=== PATIENT | female | born 1980 | race Caucasian/White ===

== ENCOUNTER 2023-06-10 12:25 | Outpatient (OUT) | payer SELFPAY ==
--- NOTE | 2023-06-10 12:34 | XR_ITS ---
The [address] [address] Patient Name: ROSELIA LO MRN: [id number] date: 1980 Sex: F Assigned Patient Location: [facility] Current Patient Location: [facility] Accession/Order Number: [id number] Exam Date: 06/10/2023 12:45 Report Date: 06/10/2023 13:11 At the request of: TREY HAMILTON Procedure: XR ankle RT min 3V PROCEDURE: XR foot RT min 3V, XR ankle RT min 3V HISTORY: Foot sprain ; acute right foot and ankle pain after falling COMPARISON: None. FINDINGS: BONES:No fracture, acute abnormality, or significant arthropathy. SOFT TISSUES:No visible soft tissue swelling. EFFUSION:None visible. OTHER: Negative. XR/XR ankle RT min 3V IMPRESSION: 1. No acute bone abnormality. Electronically authenticated by: NOEL LEIVA Date: 06/10/2023 13:11
--- NOTE | 2023-06-10 12:34 | XR_ITS ---
The [place] [id number] Patient Name: ROSELIA LO MRN: [id number] date: 1980 Sex: F Assigned Patient Location: [facility] Current Patient Location: [facility] Accession/Order Number: [id number] Exam Date: 06/10/2023 12:45 Report Date: 06/10/2023 13:12 At the request of: TREY HAMILTON Procedure: XR hand RT min 3V PROCEDURE: XR hand RT min 3V HISTORY: Hand contusion ; pain after falling COMPARISON: None. FINDINGS: BONES:No fracture, acute abnormality, or significant arthropathy. SOFT TISSUES:No visible soft tissue swelling. EFFUSION:None visible. OTHER: Negative. XR/XR hand RT min 3V IMPRESSION: 1. No acute bone abnormality. Electronically authenticated by: NOEL LEIVA Date: 06/10/2023 13:12
--- NOTE | 2023-06-10 12:34 | XR_ITS ---
The [address] [address] Patient Name: ROSELIA LO MRN: [id number] date: 1980 Sex: F Assigned Patient Location: [facility] Current Patient Location: [facility] Accession/Order Number: [id number] Exam Date: 06/10/2023 12:45 Report Date: 06/10/2023 13:11 At the request of: TREY HAMILTON Procedure: XR foot RT min 3V PROCEDURE: XR foot RT min 3V, XR ankle RT min 3V HISTORY: Foot sprain ; acute right foot and ankle pain after falling COMPARISON: None. FINDINGS: BONES:No fracture, acute abnormality, or significant arthropathy. SOFT TISSUES:No visible soft tissue swelling. EFFUSION:None visible. OTHER: Negative. XR/XR foot RT min 3V IMPRESSION: 1. No acute bone abnormality. Electronically authenticated by: NOEL LEIVA Date: 06/10/2023 13:11
== END 2023-06-10 12:26 | disposition home or self-care (01) ==
PROVIDERS: PCP Nurse Practitioner; Visit Provider Nurse Practitioner Family
DX: S93.401A Sprain of unspecified ligament of right ankle, initial encounter (principal); S93.601A Unspecified sprain of right foot, initial encounter; S60.221A Contusion of right hand, initial encounter
CPT/HCPCS: 73130; 73610; 73630

== ENCOUNTER 2023-06-15 18:59 | Emergency (ER) | payer OTHER, SELFPAY ==
[2023-06-15 19:03] VITALS: BP 149/109; PULSE 107; RESP 16; TEMP 36.6; O2SAT 96; BMI 26.6
--- NOTE | 2023-06-15 19:11 | ED.WOUNDLAC1 ---
HPI - Wound/Laceration General Chief Complaint: Wound/Laceration Stated Complaint: LT HAND LACERATION Time Seen by Provider: 06/15/23 19:03 History of Present Illness HPI narrative: The patient presented to us with a hand laceration that she obtained while using serrated knife , pt had her last tetanus booster around days ago after similar injury Related Data Allergies Allergy/AdvReac Type Severity Reaction Status Date / Time diphenhydramine Allergy Mild Hives Verified 06/15/23 19:08 [From Benadryl] codeine Allergy Unknown Verified 06/15/23 19:08 Review of Systems ROS Status of ROS 10 or more systems reviewed and unremarkable except as noted in history and below PFSH PFS Social History Smoking status: Current every day smoker Exam Narrative Exam Narrative: Nurses notes and vital signs reviewed and patient is not hypoxic. General: Well-appearing and in no apparent distress. Skin: Warm, dry, no pallor noted. No rash. Head: Normocephalic, atraumatic. Neck: Supple, non-tender. Eye: Pupils are equal, round and EOMI. No scleral icterus. Ears, Nose, Mouth, and Throat: TM are clear, no nasal mucosal hypertrophy. Oral mucosa is moist, no posterior oropharynx erythema, uvula is mid-line Cardiovascular: Regular Rate and Rhythm without murmur, gallop or rub. Respiratory: No accessory muscle use or respiratory distress. Lungs are clear to auscultation, no wheezing, rales or rhonchi Chest Wall: no tenderness Back: No midline thoracic or lumbar vertebral tenderness. No CVA tenderness Musculoskeletal: normal ROM, no calf or popliteal tenderness, no lower extremity edema/swelling,small 1 mm wound , not deep , may be puncture full range of movement preserved GI: Abdomen is soft, non-distended. Normal bowel sounds. No masses appreciated. No tenderness to palpation. No rebound, guarding, or rigidity noted. Neurological: A&O x4. No cranial nerve dysfunction observed. No truncal ataxia. Moves all extremities. Sensation intact. Psychiatric: Cooperative and interactive. Normal mood and affect. Constitutional Vital Signs, click to edit/add: Last Vital Signs Temp 97.9 F 06/15/23 19:03 Pulse 107 H 06/15/23 19:03 Resp 16 06/15/23 19:03 BP 149/109 H 06/15/23 19:03 Pulse Ox 96 06/15/23 19:03 O2 Del Method Room Air 06/15/23 19:03 Course Vital Signs Vital signs: Vital Signs Temperature 97.9 F 06/15/23 19:03 Pulse Rate 107 H 06/15/23 19:03 Respiratory Rate 16 06/15/23 19:03 Blood Pressure 149/109 H 06/15/23 19:03 Pulse Oximetry 96 06/15/23 19:03 Oxygen Delivery Method Room Air 06/15/23 19:03 Temperature 97.9 F 06/15/23 19:03 Pulse Rate 107 H 06/15/23 19:03 Respiratory Rate 16 06/15/23 19:03 Blood Pressure 149/109 H 06/15/23 19:03 Pulse Oximetry 96 06/15/23 19:03 Oxygen Delivery Method Room Air 06/15/23 19:03 MDM - Wound/Laceration MDM Narrative Medical decision making narrative: wound cleaned and dried small wound and not deep , no underlying structures injured and no foreign body Wound care instruction The patient is to follow up with primary care physician in next 2-3 days or to return to the emergency department should any of the signs or symptoms worsen or new symptoms develop. The patient agrees with the following Diagnosis and Treatment plan and the patient will be discharged home. Dermabond applied Discharge Plan Discharge Chief Complaint: Wound/Laceration Clinical Impression: Laceration of hand Patient Disposition: Home, Self-Care Time of Disposition Decision: 19:16 Condition: Good Instructions: Acute Wounds (ED) Stand Alone Forms: Portal Instructions Referrals: Ainsley Sellers [Primary Care Provider] - 1 week
== END 2023-06-15 19:29 | disposition home or self-care (01) ==
PROVIDERS: Emergency Provider Emergency Medicine; PCP Nurse Practitioner
DX: S61.412A Laceration without foreign body of left hand, initial encounter (principal); W26.0XXA Contact with knife, initial encounter; F17.210 Nicotine dependence, cigarettes, uncomplicated
CPT/HCPCS: 99281

== ENCOUNTER 2023-10-07 11:06 | Outpatient (OUT) | payer OTHER, SELFPAY ==
[2023-10-07 11:46] LABS: Creatinine Urine Random 110.39 mg/dL (20.00-300.00); Microalbum Creatinine Ratio Ur 11.7 mg/g (0.0-29.9); Microalbumin Urine Random <1.3 mg/dL (<=30.0)
[2023-10-07 11:48] LABS: Estimated Average Glucose 108 mg/dL; Glycohemoglobin A1C 5.4 % (4.5-6.2)
[2023-10-07 11:56] LABS: Alanine Aminotransferase 18 U/L (14-59); Albumin Level 3.4 g/dL (3.4-5.0); Alkaline Phosphatase 83 U/L (46-116); Anion Gap 12.4; Aspartate Amino Transferase 9 U/L (15-37); BUN Creatinine Ratio 13.1; Bilirubin Total 0.3 mg/dL (0.2-1.0); Calcium 8.9 mg/dL (8.5-10.1); Carbon Dioxide 25.8 mmol/L (21.0-32.0); Chloride 104 mmol/L (98-107); Estimated GFR (African America >60 (>=60); Estimated GFR (Non-African Ame 56 (>=60); Globulin 3.4 g/dL; Glucose 97 mg/dL (74-106); Potassium 4.2 mmol/L (3.5-5.1); Sodium 138 mmol/L (136-145); Total Protein 6.8 g/dL (6.4-8.2)
== END 2023-10-07 11:07 | disposition home or self-care (01) ==
PROVIDERS: PCP Internal Medicine; Visit Provider Internal Medicine
DX: N18.2 Chronic kidney disease, stage 2 (mild) (principal); G62.9 Polyneuropathy, unspecified
CPT/HCPCS: 36415; 80053; 82043; 82570; 82607; 82746; 83036

== ENCOUNTER 2023-12-16 14:50 | Outpatient (RCR) | payer OTHER, SELFPAY | END 2023-12-17 11:22 | disposition home or self-care (01) | LOC: PT 14:50 | PROVIDERS: PCP Internal Medicine; Visit Provider Psychiatry & Neurology Neurology | DX: R20.2 Paresthesia of skin (principal) | CPT/HCPCS: 97010; 97014; 97110; 97140; 97161 ==

== ENCOUNTER 2024-01-12 17:21 | Outpatient (OUT) | payer OTHER, SELFPAY ==
--- NOTE | 2024-01-12 | XR_ITS ---
The [address] [address] Patient Name: ROSELIA LO MRN: [id number] date: 1980 Sex: F Assigned Patient Location: [facility] Current Patient Location: [facility] Accession/Order Number: [id number] Exam Date: 01/12/2024 17:32 Report Date: 01/14/2024 09:14 At the request of: LISA KINGHT Procedure: XR hip RT min 2V PROCEDURE: XR hip RT min 2V HISTORY: acute right hip pain M25.551 ; pain radiating down right leg COMPARISON: None. FINDINGS: BONES:No fracture, acute abnormality, or significant arthropathy. SOFT TISSUES:No visible soft tissue swelling. EFFUSION:None visible. OTHER: Negative. XR/XR hip RT min 2V IMPRESSION: 1. No acute bone abnormality or significant degenerative changes of the right hip. Electronically authenticated by: NOEL LEIVA Date: 01/14/2024 09:14
== END 2024-01-12 17:22 | disposition home or self-care (01) ==
LOC: RAD 17:22
PROVIDERS: PCP Internal Medicine; Visit Provider Nurse Practitioner
DX: M25.551 Pain in right hip (principal)
CPT/HCPCS: 73502

== ENCOUNTER 2024-01-27 06:47 | Outpatient (OUT) | payer OTHER, SELFPAY ==
--- OUTSIDE RECORDS SUMMARY | 2024-01-27 06:49 | XMS_ITS | CCD ---
Author Organization [facility] Care Team Providers Care Delivery Rep Name Role Phone UNKNOWN, PHYSICIAN Referring Unavailable UNKNOWN, PHYSICIAN Primary Care Unavailable EBRAHEIM, OLE Attending Unavailable EBRAHEIM, OLE Admitting Unavailable AICHHOLZ, DIRECTOR OF SCIENTIFIC RESEARCH AINSLEY Admitting Unavailable SVETA, DR TESS Eaton Consulting Unavailable AICHHOLZ, DIRECTOR OF SCIENTIFIC RESEARCH AINSLEY Attending Unavailable AICHHOLZ, DIRECTOR OF SCIENTIFIC RESEARCH AINSLEY Primary Care Unavailable AICHHOLZ, DIRECTOR OF SCIENTIFIC RESEARCH AINSLEY Consulting Unavailable AICHHOLZ, DIRECTOR OF SCIENTIFIC RESEARCH AINSLEY Primary Care Unavailable AICHHOLZ, DIRECTOR OF SCIENTIFIC RESEARCH AINSLEY Admitting Unavailable AICHHOLZ, DIRECTOR OF SCIENTIFIC RESEARCH AINSLEY Attending Unavailable AICHHOLZ, DIRECTOR OF SCIENTIFIC RESEARCH AINSLEY Primary Care Unavailable HELIO, DR RANDOLPH Mehta Admitting Unavailable HELIO, DR RANDOLPH Mehta Attending Unavailable HELIO, DR RANDOLPH Mehta Consulting Unavailable HELIO, DR RANDOLPH Mehta Admitting Unavailable YOLANDA, DR NEVAREZ Primary Care Unavailable HELIO, DR RANDOLPH Mehta Attending Unavailable HELIO, DR RANDOLPH Mehta Consulting Unavailable AICHHOLZ, DIRECTOR OF SCIENTIFIC RESEARCH AINSLEY Primary Care Unavailable AICHHOLZ, DIRECTOR OF SCIENTIFIC RESEARCH AINSLEY Admitting Unavailable AICHHOLZ, DIRECTOR OF SCIENTIFIC RESEARCH AINSLEY Attending Unavailable AICHHOLZ, DIRECTOR OF SCIENTIFIC RESEARCH AINSLEY Consulting Unavailable Aicha Shankar Unavailable AICKIERA, AINSLEY J Primary Care Unavailable BRANDON, DIDI E. Attending Unavailable DIID TAYLOR. Attending Unavailable BRANDON, DIDI E. Referring Unavailable AICHHOLZ, AINSLEY J Primary Care Unavailable BRANDON, DIDI E. Attending Unavailable RINTO, DIDI E. Referring Unavailable AICHHOLZ, AINSLEY J Primary Care Unavailable Aichholz CHRISTIAN SCIENCE HEALER-FADI Ainsley J Primary Care Provider RYAN SELLERSA J Referring Unavailable AICHHOLZ, AINSLEY J Primary Care Unavailable AICHHOLZ, AINSLEY Attending Unavailable AICHHOLZ, AINSLEY Attending Unavailable FAWTRIXIE, SCHULZ Attending Unavailable SWETA PORTILLO Attending Unavailable SWETA PORTILLO Referring Unavailable Allergies Allergy Classification Reported Allergen(s) Allergy Type Date of Onset Reaction(s) Facility diphenhydrAMINE (1 source) diphenhydrAMINE; Translations: [BENADRYL] Drug Allergy 08-19-20 10 [facility] Repository (3 sources) Codeine; Translations: [CODEINE] Drug Allergy 05-30-20 13 [facility] Repository (1 source) diphenhydrAMINE Drug Allergy 05-30-20 13 [facility] Repository (4 sources) Codeine Drug Allergy 05-06-20 17 [employer] Other (2 sources) [facility] Other (4 sources) diphenhydrAMINE; Translations: [DIPHENHYDRAMINE HCL] Drug Allergy 05-06-20 17 [facility] Repository Medications Current Medications Medication Drug Class(es) Dates Sig (Normalized) Sig (Original) ALPRAZolam 0.25 mg oral tablet (4 sources) Benzodiazepine Start: 03-18-2023 take 1 tablet by mouth once daily as needed for anxiety ALPRAZolam (XANAX) 0.25 mg tablet TAKE 1 TABLET BY MOUTH EVERY DAY NEEDED FOR ANXIETY 0 03/18/2023 Active ALPRAZolam Activ e dexamethasone 4 mg oral tablet (1 source) Corticosteroid Start: 12-24-2022 take 1 tablet by mouth every twenty-four hours Dexamethasone 4 MG 1 tablet Orally Once a day for 5 days Dec, Active dextromethorphan hydrobromide 1.5 mg/ml / pyrilamine maleate 1.5 mg/ml oral solution (1 source) Uncompetitive P-zzgivf-W-asparta te Receptor Antagonist, Sigma-1 Agonist Start: 12-24-2022 [place] DM 7.5-7.5 MG/5ML 10 ml Orally every 6-8 hours as needed for 8 days Dec, Active FLUoxetine 20 mg oral capsule (2 sources) Serotonin Reuptake Inhibitor FLUoxetine (PROzac) 20 mg capsule Take 30 mg by mouth in the morning. 0 Active fluticasone propionate 0.05 mg/actuat metered dose nasal spray (1 source) Corticosteroid Start: 12-24-2022 take 1 spray(s) nasal route once daily Fluticasone Propionate 50 MCG/ACT 1 spray in each nostril Nasally Once a day for 21 days Dec, Active gabapentin 300 mg oral capsule (3 sources) Anti-epileptic Agent take 1 capsule by mouth in the morning, then take 1 capsule by mouth at bedtime, then take 1 capsule by mouth in the evening gabapentin (NEURONTIN) 300 mg capsule Take 1 capsule (300 mg total) by mouth in the morning and 1 capsule (300 mg total) before bedtime. 1 cap in the PM 2 cap in the PM . 0 Active multivit with calcium,iron,min (WOMEN'S DAILY MULTIVITAMIN ORAL) (2 sources) multivit with calcium,iron,min (WOMEN'S DAILY MULTIVITAMIN ORAL) Take by mouth. 0 Active ondansetron 4 mg oral tablet (3 sources) Serotonin-3 Receptor Antagonist Start: 06-01-2022 take 1 tablet by mouth every eight hours as needed Zofran ODT 4 MG 1 tablet on the tongue and allow to dissolve Orally every 8 hrs as needed for 4 days Dec, Active sertraline 50 mg oral tablet (1 source) Serotonin Reuptake Inhibitor Sertraline HCl 50 MG TAKE 1 AND 1/2 TABLETS BY MOUTH DAILY Oral for 90 Days Active traZODone hydrochloride 50 mg oral tablet (1 source) Serotonin Reuptake Inhibitor Start: 10-19-2023 End: 11-18-2023 take 1 tablet by mouth once daily traZODone (DESYREL) 50 mg tablet Take 1 tablet (50 mg total) by mouth nightly. 0 10/19/2023 11/18/2023 Active Completed/Discontinued Medications Medication Drug Class(es) Dates Sig (Normalized) Sig (Original) 1 ml medroxyPROGESTERone acetate 150 mg/ml injection (2 sources) Progestin Start: End: medroxyPROGESTERone (DEPO-PROVERA) injection 150 mg Start: 12-22-2023 End: 12-22-2023 medroxyPROGESTERone (DEPO-NM OVERA) injection 150 mg Problems Active Problems Problem Classification Problem Date Documented Date Episodic/Chronic Acute and chronic tonsillitis (4 sources) Hypertrophy of tonsils; Translations: [Hypertrophy of tonsils] Onset: 03-19-2021 03-19-2021 Chronic Allergic reactions (4 sources) Erythema ab igne [dermatitis ab igne]; Translations: [ERYTHEMA AB IGNE DERMATITIS AB IGNE] Onset: 03-18-2022 Episodic Contraceptive and procreative management (1 source) Contraception ; Translations: [Encounter for surveillance of injectable contraceptive] 12-22-2023 Episodic Nausea and vomiting (1 source) Nausea Episodic Other skin disorders (1 source) Rash and other nonspecific skin eruption; Translations: [RASH OTH NONSPECIFIC SKIN ERUPTION] Onset: 03-24-2022 Episodic Other upper respiratory infections (8 sources) Acute pharyngitis, unspecified; Translations: [Sore throat symptom] Onset: 10-17-2021 Resolved: 06-01-2022 Episodic Spondylosis; intervertebral disc disorders; other back problems (4 sources) Other intervertebral disc degeneration, lumbosacral region; Translations: [OTH IV DISC DEGEN LUMBOSACRAL RGN] Onset: 11-24-2021 Chronic Substance-related disorders (3 sources) Nicotine dependence, cigarettes, uncomplicated; Translations: [Smoker] Onset: 02-01-2022 03-24-2022 Chronic Syncope (2 sources) Syncope and collapse; Translations: [Syncope] Onset: 10-28-2023 Episodic Unclassified (1 source) LOW BACK PAIN, UNSPECIFIED; Translations: [LOW BACK PAIN, UNSPECIFIED] Onset: 02-01-2022 Unclassified (1 source) ILL Onset: 10-28-2023 Past or Other Problems Problem Classification Problem Date Documented Da te Episodic/Chronic Abdominal pain (3 sources) Unspecified abdominal pain; Translations: [UNSPECIFIED ABDOMINAL PAIN] Onset: 01-29-2022 Episodic Chronic obstructive pulmonary disease and bronchiectasis (1 source) Bronchitis, not specified as acute or chronic; Translations: [BRONCHITIS NOT SPEC ACUTE/CHRON] Onset: 10-20-2021 Episodic Mood disorders (2 sources) Mood disorders Onset: 04-26-2023 04-26-2023 Other aftercare (1 source) Other custodial (current) drug therapy; Translations: [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] Onset: 02-01-2022 Episodic Other connective tissue disease (4 sources) Pain in right leg; Translations: [PAIN IN RIGHT LEG] Onset: 11-18-2021 Episodic Other connective tissue disease (1 source) Pain in left leg; Translations: [PAIN IN LEFT LEG] Onset: 11-20-2021 Episodic Unclassified (1 source) Contact with and (suspected) exposure to covid-19 Z20.822 Unclassified (2 sources) Onset: 04-26-2023 04-26-2023 Viral infection (1 source) COVID-19 Onset: 06-01-2022 Resolved: 06-01-2022 Results Test Name Value Interpretation Reference Range Facility CBC AND AUTO DIFFon 10-28-20 ABSOLUTE BASOPHIL 0.1 X10E9/L Normal 0.0-0.2 [facility] Comment on above: Performed By: #### 1 9, , CBCA, CMP, 10852-8 #### [facility] ([id number]) [address] [place] [address] 77222 ABSOLUTE NEUTROPHIL 10.5 X10E9/L High 1.5-6.6 [facility] Comment on above: Performed By: #### 1 9, , CBCA, CMP, 49969-2 #### [facility] ([id number]) [address] [place] [address] 09051 Basophils/100 WBC (Bld) 0.4 % Normal [facility] Comment on above: Performed By: #### 1 399, , CBCA, CMP, 01885-5 #### [facility] ([id number]) [address] [place] [address] 58658 Eosinophils (Bld) [#/Vol] 0.3 10*3/uL Normal 0.0-0.4 [facility] Comment on above: Performed By: #### 1 9, , CBCA, CMP, 79491-1 #### [facility] ([id number]) [address] [place] [address] 35036 Eosinophils/100 WBC (Bld) 2.2 % Normal [facility] Comment on above: Performed By: #### 1 9, , CBCA, CMP, 00089-6 #### [facility] ([id number]) [address] [place] [address] 19359 Erythrocyte distribution width (RBC) [Ratio] 15.2 % High 11.5-15.0 [facility] Comment on above: Performed By: #### 1 9, , CBCA, CMP, 98309-3 #### [facility] ([id number]) [address] [place] [address] 66468 Hematocrit (Bld) [Volume fraction] 42.7 % Normal 35-47 [facility] Comment on above: Performed By: #### 1 9, , CBCA, CMP, 96664-7 #### [facility] ([id number]) [address] [place] [address] 40337 Hemoglobin (Bld) [Mass/Vol] 14.6 g/dL Normal 11.7-15.5 [facility] Comment on above: Performed By: #### 1 9, , CBCA, CMP, 07071-7 #### [facility] ([id number]) [address] [place] [address] 64542 Lymphocytes (Bld) [#/Vol] 1.7 10*3/uL Normal 1.0-3.5 [facility] Comment on above: Performed By: #### 1 9, , CBCA, CMP, 52946-3 #### [facility] ([id number]) [address] [place] [address] 40565 Lymphocytes/100 WBC (Bld) 12.8 % Normal [facility] Comment on above: Performed By: #### 1 9, , CBCA, CMP, 69051-0 #### [facility] ([id number]) [address] [place] [address] 35811 MCH (RBC) [Entitic mass] 33.8 pg Normal 27-34 [facility] Comment on above: Performed By: #### 1 9, , CBCA, CMP, 11361-9 #### [facility] ([id number]) [address] [place] [address] 78425 MCHC (RBC) [Mass/Vol] 34.3 g/dL Normal 32-36 [facility] Comment on above: Performed By: #### 1 9, , CBCA, CMP, 59614-0 #### [facility] ([id number]) [address] [place] [address] 75506 MCV (RBC) [Entitic vol] 99 fL Normal 80-100 [facility] Comment on above: Performed By: #### 1 839-07, , CBCA, CMP, 64697-2 #### [facility] ([id number]) [address] [place] [address] 49549 Monocytes (Bld) [#/Vol] 0.8 10*3/uL Normal 0-0.9 [facility] Comment on above: Performed By: #### 1 9, , CBCA, CMP, 11097-6 #### [facility] ([id number]) [address] [place] [address] 40213 Monocytes/100 WBC (Bld) 5.7 % Normal [facility] Comment on above: Performed By: #### 1 9, , CBCA, CMP, 07935-4 #### [facility] ([id number]) [address] [place] [address] 10725 Neutrophils/100 WBC (Bld) 78.9 % Normal [facility] Comment on above: Performed By: #### 1 0839-9, , CBCA, CMP, 18865-5 #### [facility] ([id number]) [address] [place] [address] 36735 Platelet mean volume (Bld) [Entitic vol] 8.6 fL Normal 7-12 [facility] Comment on above: Performed By: #### 1 39-9, , CBCA, CMP, 98028-8 #### [facility] ([id number]) [address] [place] [address] 82262 Platelets (Bld) [#/Vol] 247 10*3/uL Normal 150-450 [facility] Comment on above: Result Comment: PLAT ELETS REVIEWED Performed By: #### 1 838-9, , CBCA, CMP, 49243-3 #### [facility] ([id number]) [address] [place] [address] 72295 RBC COUNT 4.32 X10E12/L Normal 3.80-5.20 [facility] Comment on above: Performed By: #### 1 08399, , CBCA, CMP, 95222-6 #### [facility] ([id number]) [address] [place] [address] 15432 WBC (Bld) [#/Vol] 13.3 10*3/uL High 4.0-11.0 [facility] Comment on above: Performed By: #### 1 0839-9, , CBCA, CMP, 78389-3 #### [facility] ([id number]) [address] [place] [address] 76735 COMPREHENSIVE METABOLIC PANE Scott 10-28-2023 Albumin [Mass/Vol] 4.0 g/dL Normal 3.2-5.3 [facility] Comment on above: Performed By: #### 1 0839-9, , CBCA, CMP, 35483-0 #### [facility] ([id number]) [address] [place] [address] 02003 ALP [Catalytic activity/Vol] 76 U/L Normal 39-130 [facility] Comment on above: Performed By: #### 1 39-9, , CBCA, CMP, 28705-7 #### [facility] ([id number]) [address] [place] [address] 79146 ALT [Catalytic activity/Vol] 18 U/L Normal 0-31 [facility] Comment on above: Performed By: #### 1 39-9, , CBCA, CMP, 48372-8 #### [facility] ([id number]) [address] [place] [address] 79931 Anion gap [Moles/Vol] 3 mmol/L Low 5-15 [facility] Comment on above: Performed By: #### 1 39-9, , CBCA, CMP, 05832-7 #### [facility] ([id number]) [address] [place] [address] 40171 AST [Catalytic activity/Vol] 20 U/L Normal 0-41 [facility] Comment on above: Performed By: #### 1 39-9, , CBCA, CMP, 79843-2 #### [facility] ([id number]) [address] [place] [address] 80122 Bilirubin [Mass/Vol] 0.8 mg/dL Normal 0.3-1.2 [facility] Comment on above: Performed By: #### 1 39-9, , CBCA, CMP, 47734-0 #### [facility] ([id number]) [address] [place] [address] 95894 Calcium [Mass/Vol] 8.6 mg/dL Normal 8.5-10.5 [facility] Comment on above: Performed By: #### 1 0839-9, , CBCA, CMP, 60672-4 #### [facility] ([id number]) [address] [place] [address] 84425 Chloride [Moles/Vol] 113 mmol/L High 98-109 [facility] Comment on above: Performed By: #### 1 39-9, , CBCA, CMP, 51032-9 #### [facility] ([id number]) [address] [place] [address] 75533 CO2 [Moles/Vol] 22 mmol/L Normal 22-32 [facility] Comment on above: Performed By: #### 1 0839-9, , CBCA, CMP, 97425-2 #### [facility] ([id number]) [address] [place] [address] 08261 Creatinine [Mass/Vol] 1.15 mg/dL High 0.40-1.00 [facility] Comment on above: Result Comment: METH OD TRACEABLE TO IDMS STANDARD Performed By: #### 1 0839-9, , CBCA, CMP, 56666-5 #### [facility] ([id number]) [address] [place] [address] 46723 GFR/1.73 sq M.predicted among non-blacks MDRD (S/P/Bld) [Vol rate/Area] 61 mL/min/{1.73_m2} Normal >59 [facility] Comment on above: Result Comment: Reported eGFR is based on the CKD-EPI 1 equation that does not use a race coefficient. Performed By: #### 1 0839-9, , CBCA, CMP, 56597-7 #### [facility] ([id number]) [address] [place] [address] 57196 Glucose [Mass/Vol] 84 mg/dL Normal 65-99 [facility] Comment on above: Performed By: #### 1 0839-9, , CBCA, CMP, 41356-3 #### [facility] ([id number]) [address] [place] [address] 46492 Potassium [Moles/Vol] 4.7 mmol/L Normal 3.5-5.0 [facility] Comment on above: Performed By: #### 1 0839-9, , CBCA, CMP, 55445-5 #### [facility] ([id number]) [address] [place] [address] 03489 Protein [Mass/Vol] 6.9 g/dL Normal 6.0-8.0 [facility] Comment on above: Performed By: #### 1 0839-9, , CBCA, CMP, 47664-2 #### [facility] ([id number]) [address] [place] [address] 66901 Sodium [Moles/Vol] 138 mmol/L Normal 134-146 [facility] Comment on above: Performed By: #### 1 0839-9, , CBCA, CMP, 52770-8 #### [facility] ([id number]) [address] [place] [address] 71845 Urea nitrogen [Mass/Vol] 12 mg/dL Normal 5-23 [facility] Comment on above: Performed By: #### 1 08399, , CBCA, CMP, 32765-9 #### [facility] ([id number]) [address] [place] [address]RAIN WO CONTon CT BRAIN WO CONT CT BRAIN WO CONT Examination: Noncontrast brain CT Date of Exam:10/28/2023 Clinical History:Headache syncope Comparison:None Procedure: Multi-detector CT performed through the brain without IV contrast. Automatic exposure control (AEC) was utilized. Findings: There is no intracranial hemorrhage, extra-axial fluid collection, mass effect, or hydrocephalus. Chen-white matter differentiation is appropriate. Infarcts may be occult on CT, but grossly no acute infarct identified There is no midline shift. IMPRESSION: 1. No acute findings. All CT scans at this facility use dose modulation, iterative reconstruction, and/or weight based dosing when appropriate to reduce radiation dose to as low as reasonably achievable. Finalized by Ronni Roblero MD on 10/28/2023 5:13 PM Normal [facility] Fibrin D-dimer DDU (PPP) [Ma ss/Vol]on 10-28-2023 D DIMER <150 Normal <255 [facility] Comment on above: Result Comment: Results <255 ng/mL DDU: The presence of a VTE can safely be excluded with a negative D-Dimer result and Wells score. A negative result doesn't exclude the possibility of DIC. The test be repeated along with other diagnostic tests if the patient's symptoms persist or worsen. [email or web address] Performed By: #### 1 0839-9, , CBCA, CMP, 85706-0 #### [facility] ([id number]) [address] [place] [address] 30577 MAGNESIUMon 10-28-2023 Magnesium [Mass/Vol] 2.0 mg/dL Normal 1.8-2.6 [facility] Comment on above: Performed By: #### 1 0839-9, 49157-7, CBCA, CMP, 05614-2 #### [facility] ([id number]) [address] [place] [address] 26644 SARS/FLU A+B/RSV by NAAT/Mol ecularon 10-28-2023 SARS/FLU A+B/RSV by NAAT/Molecular FLU A PCR Negative (qualifier value) FLU B PCR Negative (qualifier value) RSV by PCR Negative (qualifier value) SARS CoV 2 Not detected (qualifier value) NOTE The Xpert Xpress SARS-CoV-2/Flu/RSV Plus test is a rapid, multiplexed real-time RT-PCR test intended for the simultaneous qualitative detection and differentiation of SARS-CoV-2, influenza A, influenza B and respiratory syncytial virus (RSV) viral RNA from individuals suspected of respiratory viral infection consistent with COVID-19 by their healthcare provider. This test has not been validated in asymptomatic patients. The Xpert Xpress SARS-CoV-2 test is intended for use by qualified and trained operators who are performing tests using either [employer] or [employer] systems and is limited to laboratories that meet the CLIA requirements to perform high and moderate complexity tests. The Xpert Xpress SARS-CoV-2/Flu/RSV Plus is only for use under the Food and Drug Administration's Emergency Use Authorization. Results are for the simultaneous detection and differentiation of SARS-CoV-2, influenza A, influenza B and RSV nucleic acids in clinical specimens. SARS-CoV-2, influenza A, influenza B and RSV RNA identified by this test are generally detectable in upper respiratory samples during the acute phase of infection. Positive results are indicative of the presence of the identified virus, but do not rule out bacterial infection or co-infection with other pathogens not detected by this test. Clinical correlation with patient history and other diagnostic information is necessary to determine patient infection status. The agent detected may not be the definite cause of disease. Negative results do not preclude SARS-CoV-2, influenza A, influenza B and RSV infection and should not be used as the sole basis for treatment or other patient management decisions. Negative results must be combined with clinical observations, patient history and epidemiological information. An Invalid result may occur with specimen-associated inhibition unable to be resolved with specimen repeat. Fact Sheet for Healthcare Providers: https://www.fda.gov/ media/277483/downloa d Fact Sheet for Patients: https://www.fda.gov/ media/239194/downloa d Normal [facility] Comment on above: Performed By: #### C OVFLR #### [facility] ([id number]) [address] [place] [address] 21124 TROPONIN Ion 10-28-2023 Troponin I.cardiac [Mass/Vol] ng/mL Normal 0.00-0.04 [facility] Comment on above: Performed By: #### 1 0839-9, 56571-2, CBCA, CMP, 77016-6 #### [facility] ([id number]) [address] [place] [address] 58106 URN MACROSCOPIC NURon 2022 BILIRUBIN OLIVIA Negative Normal NEG [facility] Comment on above: Performed By: #### N UM #### [facility] ([id number]) [address] [place] [address] [place] [address] BLOOD/HGB OLIVIA Trace Abnormal NEG [facility] Comment on above: Performed By: #### N UM #### [facility] ([id number]) [address] [place] [address] [place] [address] GLUCOSE OLIVIA Negative Normal NEG [facility] Comment on above: Performed By: #### N UM #### [facility] ([id number]) [address] [place] [address] [place] [address] KETONES OLIVIA Negative Normal NEG [facility] Comment on above: Performed By: #### N UM #### [facility] ([id number]) [address] [place] [address] [place] [address] LEUKOCYTE ESTERASE OLIVIA Negative Normal NEG [facility] Comment on above: Performed By: #### N UM #### [facility] ([id number]) [address] [place] [address] [place] [address] NITRITE OLIVIA Negative Normal NEG [facility] Comment on above: Performed By: #### N UM #### [facility] ([id number]) [address] [place] [address] [place] [address] PH OLIVIA 6.0 Normal 5.0-8.5 [facility] Comment on above: Performed By: #### N UM #### [facility] ([id number]) [address] [place] [address] [place] [address] PROTEIN OLIVIA Negative Normal NEG [facility] Comment on above: Performed By: #### N UM #### [facility] ([id number]) [address] [facility] [place], [place] [address] SPECIFIC GRAVITY OLIVIA 1.010 Normal 1.003-1.035 [facility] Comment on above: Performed By: #### N UM #### [facility] ([id number]) [address] [facility] [place], [place] [address] UROBILINOGEN OLIVIA 0.2 eu/dL Normal <1.1 [facility] Comment on above: Performed By: #### N UM #### [facility] ([id number]) [address] [place] [address] COVID/FLU/RSV RT-PCRon 12-24 SARS-CoV-2 (COVID-19) RNA KAREN+probe Ql (Unsp spec) Negative [facility] Other COVID/FLU/RSV RT-PCR Negative [facility] Other SARS-CoV-2 (COVID-19) RNA NA A+probe Ql (Resp)on 06-01-2022 SARS-CoV-2 (COVID-19) RNA KAREN+probe Ql (Unsp spec) Positive [facility] Other REJI by IFAon 03-22-2022 Antinuclear Antibodies, IFA Negative Normal [facility] Comment on above: Result Comment: Nega tive <1:80 Borderline 1:80 Positive >1:80 ICAP nomenclature: AC-0 For more information about Hep-2 cell patterns use ANApatterns.org, the official website for the International Consensus on Antinuclear Antibody (REJI) Patterns (ICAP). Performed By: #### A LILIAM #### [facility] [address] [place] [address] Dr. Andre Haynes THYROID ANTIBODIESon 022 Thyroglobulin Antibody <1.0 Normal 0.0-0.9 [facility] Comment on above: Result Comment: Thyr oglobulin Antibody measured by [facility] [place] Methodology Performed By: #### T HYRABS #### [facility] [address] [place] [address] Dr. Andre Haynes Thyroid Peroxidase (TPO) Ab 10 IU/mL Normal 0-34 [facility] Comment on above: Performed By: #### T HYRABS #### [facility] [address] [place] [address] Dr. Andre Haynes ANTISTREPTOLYSIN O AB (ASO)o n 03-19-2022 Antistreptolysin O Ab <20.0 Normal 0.0-200.0 [facility] Comment on above: Performed By: #### A SOAB #### [facility] [address] [place] [address] Dr. Andre Haynes RHEUMATOID FACTORon 03-19-20 RA Latex Turbid. <10.0 Normal <14.0 [facility] Comment on above: Performed By: #### R F #### [facility] [address] [place] [address] Dr. Andre Haynes CBC AUTO DIFFon 03-18-2022 BASO # 0.0 103/ul Normal 0.0-0.1 [facility] Comment on above: Performed By: #### C BC #### [facility] [address] [place] [address] Dr. Andre Haynes Basophils/100 WBC (Bld) 0.3 % Normal 0.2-2.0 [facility] Comment on above: Performed By: #### C BC #### [facility] [address] [place] [address] Dr. Andre Haynes EO # 0.4 103/ul Normal 0.0-0.7 [facility] Comment on above: Performed By: #### C BC #### [facility] [address] [place] [address] Dr. Andre Haynes Eosinophils/100 WBC (Bld) 4.0 % Normal 0.9-7.0 [facility] Comment on above: Performed By: #### C BC #### [facility] [address] [place] [address] Dr. Andre Haynes Erythrocyte distribution width (RBC) [Ratio] 12.5 % Normal 11.0-15.0 [facility] Comment on above: Performed By: #### C BC #### [facility] [address] [place] [address] Dr. Andre Haynes Hematocrit (Bld) [Volume fraction] 41.9 % Normal 36.0-48.0 [facility] Comment on above: Performed By: #### C BC #### [facility] [address] [place] [address] Dr. Andre Haynes Hemoglobin (Bld) [Mass/Vol] 14.4 g/dL Normal 12.0-16.0 [facility] Comment on above: Performed By: #### C BC #### [facility] [address] [place] [address] Dr. Andre Haynes IG # 0.04 10e3/ul Critically high 0.00-0.03 [facility] Comment on above: Performed By: #### C BC #### [facility] [address] [place] [address] Dr. Andre Haynes IG % 0.4 % Normal 0.0-0.5 [facility] Comment on above: Performed By: #### C BC #### [facility] [address] [place] [address] Dr. Andre Haynes LYMPH # 2.6 103/ul Normal 1.2-3.8 [facility] Comment on above: Performed By: #### C BC #### [facility] [address] [place] [address] Dr. Andre Haynes Lymphocytes/100 WBC (Bld) 29.2 % Normal 20.5-60.0 [facility] Comment on above: Performed By: #### C BC #### [facility] [address] [place] [address] Dr. Andre Haynes MANUAL DIFF REQ NO Normal [facility] Comment on above: Performed By: #### C BC #### [facility] [address] [place] [address] Dr. Andre Haynes MCH (RBC) [Entitic mass] 33.3 pg Normal 26.7-34.0 [facility] Comment on above: Performed By: #### C BC #### [facility] [address] [address] [address] Andre Haynes MCHC (RBC) [Mass/Vol] 34.4 g/dL Normal 29.9-35.2 [facility] Comment on above: Performed By: #### C BC #### [facility] [address] [address] [address] Andre Haynes MCV (RBC) [Entitic vol] 97.0 fL Normal 81.0-99.0 [facility] Comment on above: Performed By: #### C BC #### [facility] [address] [place] [address] Dr. Andre Haynes MONO # 0.6 103/ul Normal 0.3-0.8 [facility] Comment on above: Performed By: #### C BC #### [facility] [address] [place] [address] Dr. Andre Haynes Monocytes/100 WBC (Bld) 6.4 % Normal 1.7-12.0 [facility] Comment on above: Performed By: #### C BC #### [facility] [address] [place] [address] Dr. Andre Haynes NEUT # 5.4 103/ul Normal 1.4-6.5 [facility] Comment on above: Performed By: #### C BC #### [facility] [address] [place] [address] Dr. Andre Haynes Neutrophils/100 WBC (Bld) 59.7 % Normal 43.0-75.0 [facility] Comment on above: Performed By: #### C BC #### [facility] [address] [address] [address] Andre Haynes Platelet mean volume (Bld) [Entitic vol] 9.9 fL Normal 9.5-13.5 [facility] Comment on above: Performed By: #### C BC #### [facility] [address] [address] [address] Andre Haynes PLT 217 103/ul Normal 150-450 [facility] Comment on above: Performed By: #### C BC #### [facility] [address] [place] [address] Dr. Andre Haynes RBC 4.32 106/ul Normal 4.20-5.40 [facility] Comment on above: Performed By: #### C BC #### [facility] [address] [place] [address] Dr. Andre Haynes WBC 9.0 103/ul Normal 4.0-11.0 [facility] Comment on above: Performed By: #### C BC #### [facility] [address] [place] [address] Dr. Andre Haynes CRPon 03-18-2022 CRP [Mass/Vol] mg/L Normal <=1.0 [facility] Comment on above: Performed By: #### R F #### [facility] [address] [place] [address] Dr. Andre Haynes FERRITINon 03-18-2022 Ferritin [Mass/Vol] 35.0 ng/mL Normal 6.2-137.0 [facility] Comment on above: Performed By: #### R F #### [facility] [address] [place] [address] Dr. Andre Haynes FREE T3on 03-18-2022 FREE T3 3.61 pg/mlL Normal 2.18-3.98 [facility] Comment on above: Performed By: #### R F #### [facility] [address] [place] [address] Dr. Andre Haynes FREE T4on 03-18-2022 Free T4 [Mass/Vol] 1.00 ng/dL Normal 0.76-1.46 [facility] Comment on above: Performed By: #### R F #### [facility] [address] [place] [address] Dr. Andre Haynes IRONon 03-18-2022 Iron [Mass/Vol] 87.0 ug/dL Normal 50.0-170.0 [facility] Comment on above: Performed By: #### R F #### [facility] [address] [place] [address] Dr. Andre Haynes LIVER PROFILEon 03-18-2022 Albumin [Mass/Vol] 3.7 g/dL Normal 3.4-5.0 [facility] Comment on above: Performed By: #### R F #### [facility] [address] [place] [address] Dr. Andre Haynes Albumin/Globulin [Mass ratio] 1.3 {ratio} Normal [facility] Comment on above: Performed By: #### R F #### [facility] [address] [place] [address] Dr. Andre Haynes ALP [Catalytic activity/Vol] 74 U/L Normal 46-116 [facility] Comment on above: Performed By: #### R F #### [facility] [address] [place] [address] Dr. Andre Haynes ALT [Catalytic activity/Vol] 24 U/L Normal 14-59 [facility] Comment on above: Performed By: #### R F #### [facility] [address] [place] [address] Dr. Andre Haynes AST [Catalytic activity/Vol] 13 U/L Critically low 15-37 [facility] Comment on above: Performed By: #### R F #### [facility] [address] [place] [address] Dr. Andre Haynes BILI, CONJUGATED 0.1 mg/dL Normal 0.0-0.2 [facility] Comment on above: Performed By: #### R F #### [facility] [address] [place] [address] Dr. Andre Haynes Bilirubin [Mass/Vol] 0.3 mg/dL Normal 0.2-1.0 [facility] Comment on above: Performed By: #### R F #### [facility] [address] [place] [address] Dr. Andre Haynes Globulin (S) [Mass/Vol] 2.8 g/dL Normal [facility] Comment on above: Performed By: #### R F #### [facility] [address] [place] [address] Dr. Andre Haynes Protein [Mass/Vol] 6.5 g/dL Normal 6.4-8.2 [facility] Comment on above: Performed By: #### R F #### [facility] [address] [address] [address] Andre Haynes PROF CHEM 8 (BAS METB)on Anion gap [Moles/Vol] 12.0 mmol/L Normal [facility] Comment on above: Performed By: #### F T3, LIVER, BMP, TSH, URIC, CRP #### [facility] [address] [address] [address] Andre Haynes Calcium [Mass/Vol] 8.8 mg/dL Normal 8.5-10.1 [facility] Comment on above: Performed By: #### F T3, LIVER, BMP, TSH, URIC, CRP #### [facility] [address] [address] [address] Andre Haynes Chloride [Moles/Vol] 104 mmol/L Normal 98-107 [facility] Comment on above: Performed By: #### F T3, LIVER, BMP, TSH, URIC, CRP #### [facility] [address] [address] [address] Andre Haynes CO2 [Moles/Vol] 25.8 mmol/L Normal 21.0-32.0 [facility] Comment on above: Performed By: #### F T3, LIVER, BMP, TSH, URIC, CRP #### [facility] [address] [address] [address] Andre Haynes Creatinine [Mass/Vol] 1.05 mg/dL Critically high 0.55-1.02 [facility] Comment on above: Performed By: #### F T3, LIVER, BMP, TSH, URIC, CRP #### [facility] [address] [place] [address] Dr. Andre Haynes EGFR-AF GREEK >60 Normal >=60 [facility] Comment on above: Performed By: #### F T3, LIVER, BMP, TSH, URIC, CRP #### [facility] [address] [address] [address] Andre Haynes EGFR-NON AF GREEK 58 mL/min/1.73m2 Critically low >=60 [facility] Comment on above: Performed By: #### F T3, LIVER, BMP, TSH, URIC, CRP #### [facility] [address] [address] [address] Andre Haynes Glucose [Mass/Vol] 85 mg/dL Normal 74-106 [facility] Comment on above: Performed By: #### F T3, LIVER, BMP, TSH, URIC, CRP #### [facility] [address] [address] [address] Andre Haynes Potassium [Moles/Vol] 3.8 mmol/L Normal 3.5-5.1 [facility] Comment on above: Performed By: #### F T3, LIVER, BMP, TSH, URIC, CRP #### [facility] [address] [address] [address] Andre Haynes Sodium [Moles/Vol] 138 mmol/L Normal 136-145 [facility] Comment on above: Performed By: #### F T3, LIVER, BMP, TSH, URIC, CRP #### [facility] [address] [address] [address] Andre Haynes Urea nitrogen [Mass/Vol] 11.0 mg/dL Normal 7.0-18.0 [facility] Comment on above: Performed By: #### F T3, LIVER, BMP, TSH, URIC, CRP #### [facility] [address] [address] [address] Andre Haynes Urea nitrogen/Creatinine [Mass ratio] 10.5 mg/mg Normal [facility] Comment on above: Performed By: #### F T3, LIVER, BMP, TSH, URIC, CRP #### [facility] [address] [address] [address] Andre Haynes PROTIMEon 03-18-2022 INR Coag (PPP) [Relative time] 1.01 {INR} Normal [facility] Comment on above: Performed By: #### P TT, PT #### [facility] [address] [address] [address] Andre Haynes INR GUIDELINES SEE BELOW Normal [facility] Comment on above: Result Comment: BRICE RED INR: 2.0 - 3.0 CONDITIONS NOT LISTED BELOW 2.5 - 3.5 FOR PROSTHETIC HEART VALVE REPLACEMENT 2.5 - 3.5 RECURRENT THROMBOSIS Performed By: #### P TT, PT #### [facility] [address] [place] [address] Dr. Andre Haynes PT Coag (PPP) [Time] 10.9 s Normal 9.0-11.6 [facility] Comment on above: Performed By: #### P TT, PT #### [facility] [address] [place] [address] Dr. Andre Haynes PTTon 03-18-2022 aPTT Coag (Bld) [Time] 27.2 s Normal 22.3-36.2 [facility] Comment on above: Performed By: #### P TT, PT #### [facility] [address] [place] [address] Dr. Andre Haynes [facility] SED RATE 1 mm/hr Normal <=20 [facility] Comment on above: Performed By: #### A SOAB #### [facility] [address] [place] [address] Dr. Andre Haynes TSHon 03-18-2022 TSH 2.218 uIU/mL Normal 0.358-3.740 [facility] Comment on above: Performed By: #### R F #### [facility] [address] [place] [address] Dr. Andre Haynes TSH RANGE SEE BELOW Normal [facility] Comment on above: Result Comment: <0.3 4 UIU/ml HYPERTHYROID 0.34-5.60 UIU/ml EUTHYROID >5.60 UIU/ml HYPOTHYROID Performed By: #### R F #### [facility] [address] [place] [address] Dr. Andre Haynes UA (CLEAN/CATCH) RN PROGRESSIVE CARE UNIT/MICRO I F IND.on 03-18-2022 Bilirubin Ql (U) Negative Normal NEGATIVE [facility] Comment on above: Performed By: #### R F #### [facility] [address] [place] [address] Dr. Andre Haynes Clarity (U) CLEAR Normal CLEAR [facility] Comment on above: Performed By: #### R F #### [facility] [address] [place] [address] Dr. Andre Haynes Color (U) YELLOW Normal YELLOW [facility] Comment on above: Performed By: #### R F #### [facility] [address] [place] [address] Dr. Andre Haynes Glucose Ql (U) Negative Normal NEGATIVE [facility] Comment on above: Performed By: #### R F #### [facility] [address] [place] [address] Dr. Andre Haynes Hemoglobin Ql (U) Negative Normal NEGATIVE [facility] Comment on above: Performed By: #### R F #### [facility] [address] [place] [address] Dr. Andre Haynes Ketones Ql (U) Negative Normal NEGATIVE [facility] Comment on above: Performed By: #### R F #### [facility] [address] [place] [address] Dr. Andre Haynes LEUKOCYTES Negative Normal NEGATIVE [facility] Comment on above: Performed By: #### R F #### [facility] [address] [place] [address] Dr. Andre Haynes Nitrite Ql (U) Negative Normal NEGATIVE [facility] Comment on above: Performed By: #### R F #### [facility] [address] [place] [address] Dr. Andre Haynes pH (U) 6.0 [pH] Normal 5-9 [facility] Comment on above: Performed By: #### R F #### [facility] [address] [place] [address] Dr. Andre Haynes SPEC GRAVITY 1.020 Normal 1.005-<=1.025 [facility] Comment on above: Performed By: #### R F #### [facility] [address] [place] [address] Dr. Andre Haynes UA PROTEIN Negative Normal NEGATIVE/ TRACE [facility] Comment on above: Performed By: #### R F #### [facility] [address] [place] [address] Dr. Andre Haynes UR MICRO IND MICROSCOPIC ALREADY ORDERED Normal [facility] Comment on above: Performed By: #### R F #### [facility] [address] [place] [address] Dr. Andre Haynes Urobilinogen Qn (U) 0.2 {Rafal'U}/dL Normal 0.2 - 1. 0 [facility] Comment on above: Performed By: #### R F #### [facility] [address] [place] [address] Dr. Andre Haynes URIC ACID SERUMon 03-18-2022 Urate [Mass/Vol] 3.9 mg/dL Normal 2.6-6.0 [facility] Comment on above: Performed By: #### R F #### [facility] [address] [place] [address] Dr. Andre Haynes URINE MICROSCOPIC ONLYon BACTERIA NONE SEEN Normal NONE SEEN [facility] Comment on above: Performed By: #### R F #### [facility] [address] [place] [address] Dr. Andre Haynes Bacteria identified Cx Nom (U) NOT INDICATED Normal [facility] Comment on above: Performed By: #### R F #### [facility] [address] [place] [address] Dr. Andre Haynes CAST NONE SEEN Normal NONE SEEN [facility] Comment on above: Performed By: #### R F #### [facility] [address] [place] [address] Dr. Andre Haynes Crystals LM Nom (Urine sed) NONE SEEN Normal NONE SEEN [facility] Comment on above: Performed By: #### R F #### [facility] [address] [place] [address] Dr. Andre Haynes Epithelial cells LM Ql (Urine sed) FEW Abnormal NONE SEEN /RARE [facility] Comment on above: Performed By: #### R F #### [facility] [address] [place] [address] Dr. Andre Haynes MUCOUS NONE SEEN Normal NONE SEEN [facility] Comment on above: Performed By: #### R F #### [facility] [address] [place] [address] Dr. Andre Haynes RBC 0-2 Normal 0-2 [facility] Comment on above: Performed By: #### R F #### [facility] [address] [place] [address] Dr. Andre Haynes WBC NONE SEEN Normal NONE SEEN [facility] Comment on above: Performed By: #### R F #### [facility] [address] [place] [address] Dr. Andre Haynes ER URINE PROFILEon 2 Bilirubin Ql (U) Negative Normal NEGATIVE [facility] Comment on above: Performed By: #### E RUR #### [facility] [address] [place] [address] Dr. Andre Haynes Clarity (U) CLEAR Normal CLEAR [facility] Comment on above: Performed By: #### E RUR #### [facility] [address] [place] [address] Dr. Andre Haynes Color (U) LT. YELLOW Normal YELLOW [facility] Comment on above: Performed By: #### E RUR #### [facility] [address] [place] [address] Dr. Andre Haynes ERURADHAD A micrscopic examination will be performed if indicated. Normal [facility] Comment on above: Performed By: #### E RUR #### [facility] [address] [place] [address] Dr. Andre Haynes Glucose Ql (U) Negative Normal NEGATIVE [facility] Comment on above: Performed By: #### E RUR #### [facility] [address] [place] [address] Dr. Andre Haynes Hemoglobin Ql (U) Negative Normal NEGATIVE [facility] Comment on above: Performed By: #### E RUR #### [facility] [address] [place] [address] Dr. Andre Haynes Ketones Ql (U) Negative Normal NEGATIVE [facility] Comment on above: Performed By: #### E RUR #### [facility] [address] [place] [address] Dr. Andre Haynes LEUKOCYTES Negative Normal NEGATIVE [facility] Comment on above: Performed By: #### E RUR #### [facility] [address] [place] [address] Dr. Andre Haynes Nitrite Ql (U) Negative Normal NEGATIVE [facility] Comment on above: Performed By: #### E RUR #### [facility] [address] [place] [address] Dr. Andre Haynes pH (U) 6.0 [pH] Normal 5-9 [facility] Comment on above: Performed By: #### E RUR #### [facility] [address] [place] [address] Dr. Andre Haynes SPEC GRAVITY <=1.005 Abnormal 1.005-<=1.025 [facility] Comment on above: Performed By: #### E RUR #### [facility] [address] [place] [address] Dr. Andre Haynes UA PROTEIN Negative Normal NEGATIVE/ TRACE [facility] Comment on above: Performed By: #### E RUR #### [facility] [address] [place] [address] Dr. Andre Haynes UR MICRO IND NOT INDICATED Normal [facility] Comment on above: Performed By: #### E RUR #### [facility] [address] [place] [address] Dr. Andre Haynes Urobilinogen Qn (U) 0.2 {Rafal'U}/dL Normal 0.2 - 1. 0 [facility] Comment on above: Performed By: #### E RUR #### [facility] [address] [place] [address] Dr. Andre Haynes XR LSPINE MIN 4 VIEWSon 11-01 XR LSPINE MIN 4 VIEWS EXAMINATION: XR LSPINE MIN 4 VIEWS HISTORY: Pain in right leg , bilateral radiculopathy, numbness, tingling COMPARISON: No relevant comparison available. FINDINGS: BONES: Minimal levocurvature. No acute fracture or spondylolisthesis. Mild to moderate degenerative spondylosis. Moderate L5-S1 facet osteoarthropathy DISC SPACES: Moderate disc space narrowing and endplate sclerosis L5-S1 PARASPINOUS: Negative. No paraspinous abnormality is seen. OTHER: Negative. IMPRESSION: Moderate degenerative changes L5-S1 Electronically authenticated by: TESS BANGURA Date: 2021-11-19 07:38 Normal [facility] OUTSIDE CONSULT MSKon 2020 OUTSIDE CONSULT [facility] Department of Radiology [address] [place] [id number] Patient Name: ROSELIA LO : 1980 Sex: F Age: Race: White Pt. Location: [facility] Patient Status: Ordered Date: 02/05/2021 3:35:00 PM Completed Date: 02/05/2021 03:51 PM Requesting Provider: OLE TUCKER Attending Provider: Report Copy To: Signs & Symptoms: pt has persistent rt sided pectoralis pain and weakness. Assess pectoralis tendon for injury and/or tear History: Mri of rt shoulder from [facility] dated 11/05/20. Over read requested by Dr Tucker Comments: Exam: OUTSIDE CONSULT [facility] OUTSIDE CONSULT [facility] 02/05/2021 3:51 PM OUTSIDE STUDY: TECHNIQUE: Outside images of the right shoulder obtained from [facility] dated November 05, 2020. Image review with formal consultation was requested by Dr. Ole Ebrahim. FINDINGS : Axial images show no evidence of os acromiale he or Hill-Sachs lesion. There is mild AC joint degeneration. Mild flattening of the acromial undersurface. Mild joint hypertrophy with associated mild subacromial space narrowing. There is tendinosis without tear of the supraspinatus tendon. Trace subdeltoid bursal fluid. No full-thickness or retracted rotator cuff tear. The biceps tendon attaches normally to the superior labral anchor. No evidence of tear. The pectoralis minor tendon attachment to the coracoid process appears normal. Visible distal fibers of the pectoralis major show no definitive abnormality. There is labral degeneration without displaced tear. No joint effusion. Thickening without edema of inferior joint capsule. IMPRESSION: * Tendinosis of the anterior rotator cuff fibers. * No indication of pectoralis tendon injury. Please note: Our interpretation of studies performed at an outside institution is limited by factors, which may include the absence of technical specifics of the image, undisclosed clinical information and the unavailability of the original interpretation. Specialist at the institution that performed the study may have access to information not available to us that could make a difference in this interpretation. Electronically signed: Jonathan Shabazz. Transcribed by: [email or web address], User Resident: JONATHAN SHABAZZ Electronically Signed by: JONATHAN SHABAZZ @ 02/13/2021 12:32 PM I personally read this/these film(s) with this resident Normal [facility] Vital Signs Date Time Vital Sign Value Performing Clinician Facility 12-24-2022 09:25-0500 Body height 160.02 cm Aicha Shankar Other [facility] 12-24-2022 09:25-0500 Body mass index (BMI) [Ratio] 29.58 kg/m2 [facility] Shank[facility] Other [facility] 12-24-2022 09:25-0500 Body temperature 98.8 [degF] A[facility]a Shankar Other [facility] 12-24-2022 09:25-0500 Body weight 75.75 kg Aicha Shankar Other [facility] 12-24-2022 09:25-0500 Respiratory rate 18 /min Aicha Shankar Other [facility] 12-24-2022 09:25-0500 SaO2% (BldA) [Mass fraction] 95 % [facility]a Shank[facility] 06-01-2022 18:20-0400 Body height 160.02 cm Aicha Shankar Other [facility] 06-01-2022 18:20-0400 Body mass index (BMI) [Ratio] 27.45 kg/m2 Aicha Shankar Other [facility] 06-01-2022 18:20-0400 Body temperature 99.5 [degF] A[facility]a Shankar Other [facility] 06-01-2022 18:20-0400 Body weight 70.31 kg Aicha Shankar Other [facility] 06-01-2022 18:20-0400 Respiratory rate 18 /min Aicha Shankar Other [facility] 06-01-2022 18:20-0400 SaO2% (BldA) [Mass fraction] 98 % Aicha Shankar Other [facility] Other Encounters Encounter Date Encounter Type Care Provider Facility Start: 01-18-2024 End: 01-19-2024 ambulatory SWETA PORTILLO Not Available Start: 01-12-2024 End: 01-12-2024 ambulatory AINSLEY SELLERS Not Available Start: 12-22-2023 End: 12-22-2023 ambulatory [facility] System[facility] Theology Professor [facility] Comment on above: Encounter for survei llance of injectable contraceptive (Primary Dx) Start: 11-17-2023 End: 11-17-2023 ambulatory AINSLEY ANTONIA Not Available Start: 11-15-2023 Telephone encounter Sharri Palma [facility] Obstetrics/Gynecology Start: 10-28-2023 End: 10-29-2023 Emergency department patient visit DIDI Angélica [facility] Start: 10-28-2023 End: 10-29-2023 [facility] Start: 10-06-2023 End: 10-06-2023 ambulatory SHAIKH KHOAJIGNESH Not Available Start: 12-24-2022 End: 12-24-2022 ambulatory Aicha Vonnie Other [facility] Other Start: 12-24-2022 Office outpatient vi sit 25 minutes Aicha Vonnie [facility] Start: 06-01-2022 End: 06-01-2022 ambulatory Aicha Vonnie Other [facility] Other Start: 06-01-2022 Office outpatient ne w 30 minutes Aicha Vonnie [facility] Start: 03-18-2022 End: 03-19-2022 ambulatory DIRECTOR OF SCIENTIFIC RESEARCH AINSLEY AICHARMANDZ Facility:[facility] Start: 01-29-2022 End: 01-29-2022 ambulatory DIRECTOR OF SCIENTIFIC RESEARCH AINSLEY AICHHOLZ Facility:[facility] Start: 11-24-2021 End: 11-27-2021 ambulatory DIRECTOR OF SCIENTIFIC RESEARCH AINSLEY AICHHOLZ Facility:[facility] Start: 11-18-2021 End: 11-19-2021 ambulatory DIRECTOR OF SCIENTIFIC RESEARCH AINSLEY AICHHOLZ Facility:[facility] Start: 10-17-2021 End: 10-17-[address] RANDOLPH CADET Facility:[facility] Start: 01-06-2021 End: 01-21-2021 ambulatory PHYSICIAN UNKNOWN Facility:[facility] Procedures Date Procedure Procedure Detail Performing Clinician Start: 04-26-2023 Adult depression scr eening assessment Sharri Leonela Start: 04-15-2023 Mammography Sharri Gipson Start: 03-24-2022 Microscopic observat ion [Identifier] in Cervix by Cyto stain Sharri Gipson Plan of Treatment Date Care Activity Detail Author Start: 03-24-2025 Screening for malign ant neoplasm of cervix Pap Smear [facility] Start: 10-28-2024 Tobacco Screening Tobacco Screening [facility] Start: 04-26-2024 Adult BMI Follow Up Plan Adult BMI Follow Up Plan [facility] Start: 04-26-2024 Adult BMI Screening Adult BMI Screen ing [facility] Start: 04-26-2024 Depression Screening Depression Scre ening [facility] Start: 04-15-2024 Screening for malign ant neoplasm of breast Mammogram [facility] Start: 03-13-2024 End: 03-13-2024 ambulatory 03/13/2024 11:45 AM EDT Nurse Injection [facility] [address] [place] [address] [facility] Start: 12-21-2023 End: 12-21-2023 ambulatory 12/21/2023 3:30 PM EST Nurse Injection [facility] [address] [place] [address] [facility] Start: 07-01-2023 COVID-19 Vaccine ( season) COVID-19 Vaccine ( season) [facility] Start: 07-01-2023 Influenza vaccination Influenza Vacc ine [facility] Start: 1999 DTaP,Tdap and Td Vaccines ( - Tdap) DTaP,Tdap and Td Vaccines ( - Tdap) [facility] Start: 1980 Tobacco Counseling Tobacco Counselin g [facility] Immunizations Immunization Date Immunization Notes Care Provider Khoa leon 09-03-2022 influenza virus vaccine, unspecified formulation Sharri Gipson [facility] Payers Date Payer Category Payer Private Health Insurance [facility] [employer] [id number] 2022-Present [phone] [address] [address] [place] [address] [id number] 2022 Unknown [id number] 1980 Unknown [id number] 2.16.840.1.456612.3.579 .2.647 1980 Unknown [id number] 2.16.840.1.995109.3.579 .2.593 1980 Unknown [id number] 2.16.840.1.263396.3.579 .2.593 1980 Unknown [id number] 2.16.840.1.058274.3.579 .2.593 1980 Unknown [id number] 2.16.840.1.897735.3.579 .2.593 1980 Unknown [id number] 2.16.840.1.868952.3.579 .2.593 1980 Unknown [id number] 2.16.840.1.849784.3.579 .2.1286 1980 Unknown [id number] 2.16.840.1.717769.3.579 .2.1286 1980 Unknown [id number] 2.16.840.1.117876.3.579 .2.1286 1980 Unknown [id number] 2.16.840.1.478162.3.579 .2.1286 1980 Unknown [id number] 2.16.840.1.041678.3.579 .2.1259 1980 Unknown [id number] 2.16.840.1.843841.3.579 .2.1259 1980 Unknown [id number] 2.16.840.1.548234.3.579 .2.1259 1980 Unknown [id number] 2.16.840.1.179265.3.579 .2.1259 1980 Unknown [id number] 2.16.840.1.654574.3.579 .2.1259 1959 Unknown [id number] [employer]er[employer] Compensation [id number] Social History Date Type Detail Facility Start: 12-10-2020 End: 10-28-2023 Sex Assigned At [facility] [employer] Other Start: 10-31-2000 Tobacco smoking stat [facility] Smokes tobacco daily [facility] Start: 10-31-2000 History of tobacco use Cigarette Smo ker [facility] Start: 12-10-2020 End: 04-12-2023 Cigarettes smoked current (pack per day) - Reported 0.5 [facility] Start: 04-12-2023 Tobacco use and exposure Smokeless tobacco non-user [facility] Start: 10-28-2023 Alcohol intake Current non-dr crutch maker of alcohol (finding) [facility] Adolescent depressio n screening assessment 7 [facility] Start: 1980 Sex Assigned At Not on file P [facility] Clinical Notes 06-01-2022 to 12-22-2023 Haley Velez LPN - 12/22/2023 3:30 PM ESTTelephone Encounter - Sharri Gipson - 11/15/2023 11:19 AM ESTTelephone Encounter - MONICO Hernández CNP - 11/15/2023 11:19 AM EST Note Date & Type Note Facility 12-22-2023 History of Presen t illness Narrative Patient is here for DepoProvera IM administration. Medical history reviewed. Pt denies abnormal bleeding, concerns related to Depo. Urine test negative. Injection administered to ____RUQ . Pt tolerated well, no adverse reactions noted. Patient to return to clinic for next Depo Administration in 10-12 weeks or PRN. Depo calendar given. documented in this encounter [facility] 11-15-2023 Miscellaneous Notes Patient called the office with some questions & concerns- she has a pap that was negative in 2021. She had her last annual with no pap in March 2023. About 2 months ago the patient's mother was diagnosed with cancer of her uterine lining. The patient's mother went for an emergency hysterectomy right away. They instructed the patient to contact our office to be checked . Please advise with recommendations for the patient. Thank you. If patient is not having any pelvic pain or abnormal bleeding there is nothing we need to do at this time. We would want to see her in March for her next annual and can repeat her pap at that time if she desires. If the patient is having either of these things, she should come in for an appt. Thank you. LVM for patient to return our call Pt called back and informed her of this information. Pt verbalized she understood. SAURABH Camacho documented in this encounter [facility] 11-15-2023 Telephone encounter Note Patient called the office with some questions & concerns- she has a pap that was negative in 2021. She had her last annual with no pap in March 2023. About 2 months ago the patient's mother was diagnosed with cancer of her uterine lining. The patient's mother went for an emergency hysterectomy right away. They instructed the patient to contact our office to be checked . Please advise with recommendations for the patient. Thank you. [facility] 11-15-2023 Telephone encounter Note If patient is not having any pelvic pain or abnormal bleeding there is nothing we need to do at this time. We would want to see her in March for her next annual and can repeat her pap at that time if she desires. If the patient is having either of these things, she should come in for an appt. Thank you. [facility] 11-15-2023 Telephone encounter Note LVM for patient to return our call [facility] 11-15-2023 Telephone encounter Note Pt called back and informed her of this information. Pt verbalized she understood. SAURABH Camacho [facility] 10-28-2023 Note XR CHEST 2 VWS Procedure: Chest x-ray performed Number of views:2 History:Syncope Comparison:10/03/2010 Findings: The heart and lungs show no acute findings, and the mediastinum and meliza are grossly negative . Impression: 1. No acute change. Finalized by Ronni Roblero MD on 10/28/2023 7:04 PM [facility] 12-24-2022 Evaluation note Encounter Date Diagnosis Assessment Notes Dec, Contact with and (suspected) exposure to covid-19 (ICD-10 - Z20.822) Dec, Acute non-recurrent pansinusitis (ICD-10 - J01.40) Sinus infections can be triggeredby a secondary infection; usually a viral URI or even seasonal allergies. Take medications as directed. Use saline nasal spray prior to presciption nasal spray. Complete all doses of medication even if you start to feel better. Symptoms should improve during treatment period. Do not use any over the counter medications is received prescription cough syrup is given. Follow up with primary care provider if no improvement of symptoms occur by end of treatment. Dec, Nausea (ICD-10 - R11.0) Nausea can be caused because of symptoms of other illnesses, gastro related viruses, headaches, etc. Use medication as directed. Encourage fluid intake and try to start with small sips of fluid. Watch for signs and symptoms of dehydration including decrease in urine output, dry mucus membranes, etc. Fluid intake is more important than food intake. Follow up with primary care provider if no improvement of symptoms within the next few days. Seek emergency treatment if signs of dehydration occur such as decrease in urine, dry mouth, etc [facility] Other 08-02-2022 Evaluation note* Encounter Date Diagnosis Assessment Notes Treatment Notes Treatment Clinical Notes May, Sore throat (ICD-10 - J02.9) May, COVID-19 (ICD-10 - U07.1) Today you tested positive for the COVID virus. This mean you need to follow all CDC quarantine guidelines found at coronavirus.[email or web address].g ov. It is important to rest, increase fluids, and stay at home. Recommend contacting primary care provider and discussing best course of action if you have chronic health conditions. [facility] Other Evaluation note* Diagnosis Encounter for surveillance of injectable contraceptive- Primary documented in this encounter [facility]History general Narrative - Reported* Type Description Date Medical History Anxiety Surgical History C section x 3 Surgical History rotator cuff Surgical History cholecystectomy Hospitalization History Child [facility] Other History general Narrative - Reported* Type Description Date Medical History Anxiety Medical History Neuropathy Surgical History C section x 3 Surgical History rotator cuff Surgical History cholecystectomy Surgical History hip decompression left Hospitalization History Child [facility] Other InstructionsNot on filedocumented in this encounter RELEASEIF SystemInstructionsNot on filedocumented in this encounter [facility] Summary Purpose Family History No Family History Records FoundNo Family History Records FoundNo Family History Records FoundNo Family History Records FoundNo Family History Records Found Advance Directives No Advanced Directives Records FoundNo Advanced Directives Records FoundNo Advanced Directives Records FoundNo Advanced Directives Records FoundNo Advanced Directives Records Found Additional Source Comments INFORMATION SOURCE (unrecogn ized section and content) DATE CREATED AUTHOR 02/18/2021 [facility] DATE CREATED AUTHOR AUTHOR'S ORGANIZ ATION 06/01/2022 [facility] DATE CREATED AUTHOR AUTHOR'S ORGANIZ ATION 10/30/2023 [facility] DATE CREATED AUTHOR AUTHOR'S ORGANIZ ATION 12/30/2023 [facility] DATE CREATED AUTHOR AUTHOR'S ORGANIZ ATION 01/22/2024 [facility] EPIC REASON FOR VISIT (unrecogniz ed section and content) Reason Comments Contraception Pt is here for DEPO Care Teams (unrecognized sec tion and content) Delivery Rep Relationship Specialty Start Date End Date Ainsley Sellers APRN-[facility] [address] [place] [id number] PCP - General Nurse Practitioner 03/30/22 Delivery Rep Relationship Specialty Start Date End Date Ainsley Sellers APRN-DIRECTOR OF SCIENTIFIC RESEARCH [address] [place] [phone] PCP - General Nurse Practitioner 03/30/22 FOR RECORDS PERTAINING TO PATIENTS WHO ARE OR HAVE BEEN ENROLLED IN A CHEMICAL DEPENDENCY/SUBSTANCEABUSE PROGRAM, SOME INFORMATION MAY BE OMITTED. This clinical summary was aggregated from multiple sources. Caution should be exercised in using it in the provision of clinical care. This summary normalizes information from multiple sources, and as a consequence, information in this document may materially change the coding, format and clinical context of patient data. In addition, data may be omitted in some cases. CLINICAL DECISIONS SHOULD BE BASED ON THE PRIMARY CLINICAL RECORDS. [facility] [employer] provides no warranty or guarantee of the accuracy or completeness of information in this document.
--- NOTE | 2024-01-27 06:50 | MR_ITS ---
The [address] [address] Patient Name: ROSELIA LO MRN: [id number] date: 1980 Sex: F Assigned Patient Location: MRI Current Patient Location: MRI Accession/Order Number: [id number] Exam Date: 01/27/2024 06:55 Report Date: 01/27/2024 08:20 At the request of: SWETA PORTILLO Procedure: MR lumbar spine wo con EXAMINATION: MR lumbar spine wo con HISTORY: Acute Right Lumbar Radiculopathy M54.16 ; right side lumbar pain radiating into right leg, numbness and tingling COMPARISON: No relevant comparison available. TECHNIQUE: A variety of imaging planes and parameters were utilized for visualization of suspected pathology. FINDINGS: For the purposes of numbering, sagittal T2 image # 8 extends from the T11 vertebral body superiorly to the S3 level inferiorly. PARASPINAL AREA: Normal with no visible mass. BONES: No fracture, pars defect, or suspicious osseous lesion. Incidental hemangioma within T12. CORD/CAUDA EQUINA: Normal caliber, contour, and signal intensity. DISC LEVELS: 12-L1: No significant disc/facet abnormality, spinal stenosis, or foraminal stenosis. L1-L2: No significant disc/facet abnormality, spinal stenosis, or foraminal stenosis. L2-L3: No significant disc/facet abnormality, spinal stenosis, or foraminal stenosis. L3-L4: Mild right foramen narrowing secondary to mild degenerative facet arthropathy and ligamentum flavum thickening. No significant central canal or left foramen narrowing. No significant disc bulging or height reduction. L4-L5: No significant disc/facet abnormality, spinal stenosis, or foraminal stenosis. L5-S1: Moderate central canal and right foramen narrowing; mild left foramen narrowing. Moderate diffuse disc bulging with disc extrusion extending inferiorly to mid body of S1. Mild degenerative facet arthropathy bilaterally. MR/MR lumbar spine wo con IMPRESSION: 1. L5-S1 prominent disc extrusion causing moderate central canal and right foramen narrowing, mild left foramen narrowing. Electronically authenticated by: NOEL LEIVA Date: 01/27/2024 08:20
== END 2024-01-27 06:48 | disposition home or self-care (01) ==
LOC: MRI 06:47
PROVIDERS: PCP Internal Medicine; Visit Provider Personal Emergency Response Attendant
DX: M54.16 Radiculopathy, lumbar region (principal); M51.27 Other intervertebral disc displacement, lumbosacral region
CPT/HCPCS: 72148

== ENCOUNTER 2024-01-31 13:22 | Outpatient (OUT) | payer OTHER, SELFPAY ==
--- NOTE | 2024-01-31 | CONS_ITS ---
CONSULTATION DATE: 01/31/2024 TO: Ainsley Sellers CNP CHIEF COMPLAINT: Includes severe right buttock pain, leg pain. HISTORY OF PRESENT ILLNESS: Review of systems, past medical/surgical history were obtained and documented on the health questionnaire and is available upon request. She is a 43-year-old female, reports that she has developed pain in the above mentioned areas since September of 2023. It occurred spontaneously, increased gradually to its present state, described as 7/10 stabbing pain, increased with activities such as standing, walking and performing transitioning maneuvers. She feels most comfortable in the semi-recumbent position. Denies any change in bowel and bladder habits and reports that she has numbness, tingling and weakness of her right lower extremity. Since the onset of this symptomatology, she has undergone activity modification. She has been on Motrin 400 mg daily p.r.n., despite the fact the patient has only one kidney. She has also been on a Medrol Dosepak, which offered her no relief, activity modification as well as an independent home exercise program. EXAM: Her examination is notable for patient having hypoesthesia along the right L5 dermatome, weakness of the right extensor hallucis with 3/5 strength, positive right sided straight leg raise at approximately 90 degrees. No signs consistent with myelopathy involving the lower extremities. She also had associated myofascial spasm of the lumbar paravertebral muscle on the right side. IMPRESSION: Our impression is patient with chronic pain secondary to right L5 radiculopathy, secondary to disc protrusion, myofascial spasm. RECOMMENDATIONS: I recommend she initiate aquatic therapy. I have increased the gabapentin 300 mg pill one in the morning, one in the afternoon, two at bedtime. Discontinue the Flexeril secondary to ineffectiveness. We will trial her on baclofen 10 mg pills, half a pill to one pill b.i.d. To proceed with the L5-S1 lumbar epidural steroid injection under fluoroscopic guidance, and lastly, I have asked her to discontinue use of NSAIDs secondary to her renal issues. As part of providing excellent, safe, comprehensive care, the following was completed at our patient's visit: 1. A medication reconciliation and review to ensure accurate knowledge of current/active medications, including asking our patients to inform us about any bcac-lvh-[id number] medications or herbal remedies/nutritional supplements/alternative remedies. 2. A review to specifically ensure our patients have had annual screening for: elevated body mass index (BMI, see intake chart for exact total), tobacco use, screening for depression, and screening for unhealthy alcohol use. When screening is concerning, patients are provided with education and the specific recommendation to discuss the concerning health issue and treatment options with their primary care provider. [place]
== END 2024-01-31 13:23 | disposition home or self-care (01) ==
LOC: PM 13:23
PROVIDERS: PCP Internal Medicine; Visit Provider Anesthesiology Pain Medicine
DX: M54.16 Radiculopathy, lumbar region (principal); M51.26 Other intervertebral disc displacement, lumbar region; M62.838 Other muscle spasm
CPT/HCPCS: G0463

== ENCOUNTER 2024-02-14 08:04 | Day surgery (SDC) | payer OTHER, SELFPAY ==
--- OUTSIDE RECORDS SUMMARY | 2024-02-14 08:14 | XMS_ITS | CCD ---
Author Organization [facility] Care Team Providers Care Volcanology Professor Name Role Phone UNKNOWN, PHYSICIAN Referring Unavailable UNKNOWN, PHYSICIAN Primary Care Unavailable EBRAHEIM, OLE Attending Unavailable EBRAHEIM, OLE Admitting Unavailable AICHHOLZ, HEALTH CENTER MANAGER AINSLEY Admitting Unavailable SVETA, DR TESS Eaton Consulting Unavailable AICHHOLZ, HEALTH CENTER MANAGER AINSLEY Attending Unavailable AICHHOLZ, HEALTH CENTER MANAGER AINSLEY Primary Care Unavailable AICHHOLZ, HEALTH CENTER MANAGER AINSLEY Consulting Unavailable AICHHOLZ, HEALTH CENTER MANAGER AINSLEY Primary Care Unavailable AICHHOLZ, HEALTH CENTER MANAGER AINSLEY Admitting Unavailable AICHHOLZ, HEALTH CENTER MANAGER AINSLEY Attending Unavailable AICHHOLZ, HEALTH CENTER MANAGER AINSLEY Primary Care Unavailable HELIO, DR RANDOLPH Mehta Admitting Unavailable HELIO, DR RANDOLPH Mehta Attending Unavailable HELIO, DR RANDOLPH Mehta Consulting Unavailable HELIO, DR RANDOLPH Mehta Admitting Unavailable YOLANDA, DR NEVAREZ Primary Care Unavailable HELIO, DR RANDOLPH Mehta Attending Unavailable HELIO, DR RANODLPH Mehta Consulting Unavailable AICHHOLZ, HEALTH CENTER MANAGER AINSLEY Primary Care Unavailable AICHHOLZ, HEALTH CENTER MANAGER AINSLEY Admitting Unavailable AICHHOLZ, HEALTH CENTER MANAGER AINSLEY Attending Unavailable AICHHOLZ, HEALTH CENTER MANAGER AINSLEY Consulting Unavailable Aicha Shankar Unavailable ANTONIA, AINSLEY J Primary Care Unavailable DIDI TAYLOR. Attending Unavailable BRANDON, DIDI Juan. Attending Unavailable BRANDON, DIDI E. Referring Unavailable AICHHOLZ, AINSLEY J Primary Care Unavailable BRANDON, DIDI E. Attending Unavailable BRANDON, DIDI E. Referring Unavailable AICHHOLZ, AINSLEY J Primary Care Unavailable Aichholz CONFIGURATION MANAGEMENT SPECIALIST-FADI Ainsley J Primary Care Provider AINSLEY SELLERS J Referring Unavailable AICHHOLZ, AINSLEY J Primary Care Unavailable AICHHOLZ, AINSLEY Attending Unavailable AICKIERA, AINSLEY Attending Unavailable SWETA PORTILLO Attending Unavailable SWETA PORTILLO Referring Unavailable AICHHOLZ, AINSLEY Attending Unavailable SHAIKH PÉREZ Attending Unavailable Allergies Allergy Classification Reported Allergen(s) Allergy Type Date of Onset Reaction(s) Facility diphenhydrAMINE (1 source) diphenhydrAMINE; Translations: [BENADRYL] Drug Allergy 08-19-20 10 [facility] Repository (3 sources) Codeine; Translations: [CODEINE] Drug Allergy 05-30-20 13 [facility] Repository (1 source) diphenhydrAMINE Drug Allergy 05-30-20 13 [facility] Repository (4 sources) Codeine Drug Allergy 05-06-20 17 [employer] Other (2 sources) diphenhydrAMINE Drug Allergy [facility] [email or web address] Other (4 sources) diphenhydrAMINE; Translations: [DIPHENHYDRAMINE HCL] [...] 1.5 mg/ml oral solution (1 source) Uncompetitive P-yyboiz-J-asparta te Receptor Antagonist, Sigma-1 Agonist Start: 12-24-2022 [place] [facility] 7.5-7.5 MG/5ML 10 ml Orally every [...] 150 mg Start: 12-22-2023 End: 12-22-2023 medroxyPROGESTERone (DEPO-PA OVERA) injection 150 mg Problems Active Problems [...] 04-26-2023 04-26-2023 Other aftercare (1 source) 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; Translations: [OTH CARE HOME CURRENT DRUG THERAPY] Onset: 02-01-2022 Episodic Other [...] 10-28-20 ABSOLUTE BASOPHIL 0.1 X10E9/L Normal 0.0-0.2 [facility] Comment on above: Performed By: #### 1 9, , CBCA, CMP, 18641-9 #### [facility] ([id number]) [address] [place] [address] 06243 ABSOLUTE NEUTROPHIL 10.5 X10E9/L High 1.5-6.6 [facility] Comment on above: Performed By: #### 1 9, , CBCA, CMP, 07750-2 #### [facility] ([id number]) [address] [place] [address] 08023 Basophils/100 WBC (Bld) 0.4 % Normal [facility] Comment on above: Performed By: #### 1 9, , CBCA, CMP, 10142-7 #### [facility] ([id number]) [address] [place] [address] 04569 Eosinophils (Bld) [#/Vol] 0.3 10*3/uL Normal 0.0-0.4 [facility] Comment on above: Performed By: #### 1 9, , CBCA, CMP, 83755-1 #### [facility] ([id number]) [address] [place] [address] 96770 Eosinophils/100 WBC (Bld) 2.2 % Normal [facility] Comment on above: Performed By: #### 1 9, , CBCA, CMP, 33516-9 #### [facility] ([id number]) [address] [place] [address] 38425 Erythrocyte distribution width (RBC) [Ratio] 15.2 % High 11.5-15.0 [facility] Comment on above: Performed By: #### 1 9, , CBCA, CMP, 06820-6 #### [facility] ([id number]) [address] [place] [address] 79976 Hematocrit (Bld) [Volume fraction] 42.7 % Normal 35-47 [facility] Comment on above: Performed By: #### 1 9, , CBCA, CMP, 44530-3 #### [facility] ([id number]) [address] [place] [address] 89409 Hemoglobin (Bld) [Mass/Vol] 14.6 g/dL Normal 11.7-15.5 [facility] Comment on above: Performed By: #### 1 9, , CBCA, CMP, 37425-7 #### [facility] ([id number]) [address] [place] [address] 10970 Lymphocytes (Bld) [#/Vol] 1.7 10*3/uL Normal 1.0-3.5 [facility] Comment on above: Performed By: #### 1 9, , CBCA, CMP, 04327-0 #### [facility] ([id number]) [address] [place] [address] 03132 Lymphocytes/100 WBC (Bld) 12.8 % Normal [facility] Comment on above: Performed By: #### 1 9, , CBCA, CMP, 84367-5 #### [facility] ([id number]) [address] [place] [address] 32773 MCH (RBC) [Entitic mass] 33.8 pg Normal 27-34 [facility] Comment on above: Performed By: #### 1 9, , CBCA, CMP, 92884-4 #### [facility] ([id number]) [address] [place] [address] 03118 MCHC (RBC) [Mass/Vol] 34.3 g/dL Normal 32-36 [facility] Comment on above: Performed By: #### 1 839-07, , CBCA, CMP, 21390-4 #### [facility] ([id number]) [address] [place] [address] 06045 MCV (RBC) [Entitic vol] 99 fL Normal 80-100 [facility] Comment on above: Performed By: #### 1 839-07, , CBCA, CMP, 37827-2 #### [facility] ([id number]) [address] [place] [address] 84086 Monocytes (Bld) [#/Vol] 0.8 10*3/uL Normal 0-0.9 [facility] Comment on above: Performed By: #### 1 9, , CBCA, CMP, 76478-4 #### [facility] ([id number]) [address] [place] [address] 27600 Monocytes/100 WBC (Bld) 5.7 % Normal [facility] Comment on above: Performed By: #### 1 839-07, , CBCA, CMP, 64218-1 #### [facility] ([id number]) [address] [place] [address] 70326 Neutrophils/100 WBC (Bld) 78.9 % Normal [facility] Comment on above: Performed By: #### 1 0839-9, , CBCA, CMP, 30169-8 #### [facility] ([id number]) [address] [place] [address] 35761 Platelet mean volume (Bld) [Entitic vol] 8.6 fL Normal 7-12 [facility] Comment on above: Performed By: #### 1 39-9, , CBCA, CMP, 04675-0 #### [facility] ([id number]) [address] [place] [address] 48845 Platelets (Bld) [#/Vol] 247 10*3/uL Normal 150-450 [facility] Comment on above: Result Comment: PLAT ELETS REVIEWED Performed By: #### 1 0839-9, , CBCA, CMP, 44566-1 #### [facility] ([id number]) [address] [place] [address] 05212 RBC COUNT 4.32 X10E12/L Normal 3.80-5.20 [facility] Comment on above: Performed By: #### 1 0839-9, , CBCA, CMP, 18857-5 #### [facility] ([id number]) [address] [place] [address] 99381 WBC (Bld) [#/Vol] 13.3 10*3/uL High 4.0-11.0 [facility] Comment on above: Performed By: #### 1 0839-9, , CBCA, CMP, 81247-0 #### [facility] ([id number]) [address] [place] [address] 43475 COMPREHENSIVE METABOLIC PANE Scott 10-28-2023 Albumin [Mass/Vol] 4.0 g/dL Normal 3.2-5.3 [facility] Comment on above: Performed By: #### 1 0839-9, 41534-9, CBCA, CMP, 33319-2 #### [facility] ([id number]) [address] [place] [address] 64488 ALP [Catalytic activity/Vol] 76 U/L Normal 39-130 [facility] Comment on above: Performed By: #### 1 0839-9, 02328-7, CBCA, CMP, 56229-0 #### [facility] ([id number]) [address] [place] [address] 75134 ALT [Catalytic activity/Vol] 18 U/L Normal 0-31 [facility] Comment on above: Performed By: #### 1 39-9, , CBCA, CMP, 66271-6 #### [facility] ([id number]) [address] [place] [address] 81740 Anion gap [Moles/Vol] 3 mmol/L Low 5-15 [facility] Comment on above: Performed By: #### 1 39-9, , CBCA, CMP, 74811-1 #### [facility] ([id number]) [address] [place] [address] 16397 AST [Catalytic activity/Vol] 20 U/L Normal 0-41 [facility] Comment on above: Performed By: #### 1 39-9, , CBCA, CMP, 04504-2 #### [facility] ([id number]) [address] [place] [address] 16987 Bilirubin [Mass/Vol] 0.8 mg/dL Normal 0.3-1.2 [facility] Comment on above: Performed By: #### 1 0839-9, 39444-7, CBCA, CMP, 09243-9 #### [facility] ([id number]) [address] [place] [address] 50802 Calcium [Mass/Vol] 8.6 mg/dL Normal 8.5-10.5 [facility] Comment on above: Performed By: #### 1 0839-9, , CBCA, CMP, 39102-0 #### [facility] ([id number]) [address] [place] [address] 47235 Chloride [Moles/Vol] 113 mmol/L High 98-109 [facility] Comment on above: Performed By: #### 1 39-9, , CBCA, CMP, 55217-2 #### [facility] ([id number]) [address] [place] [address] 86420 CO2 [Moles/Vol] 22 mmol/L Normal 22-32 [facility] Comment on above: Performed By: #### 1 0839-9, , CBCA, CMP, 78898-7 #### [facility] ([id number]) [address] [place] [address] 97580 Creatinine [Mass/Vol] 1.15 mg/dL High 0.40-1.00 [facility] Comment on above: Result Comment: METH OD TRACEABLE TO IDMS STANDARD Performed By: #### 1 08399, , CBCA, CMP, 57013-6 #### [facility] ([id number]) [address] [place] [address] 77941 GFR/1.73 sq M.predicted among non-blacks MDRD (S/P/Bld) [Vol rate/Area] 61 mL/min/{1.73_m2} Normal >59 [facility] Comment on above: Result Comment: Reported eGFR is based on the CKD-EPI 2020 equation that does not use a race coefficient. Performed By: #### 1 0839-9, , CBCA, CMP, 88248-3 #### [facility] ([id number]) [address] [place] [address] 89862 Glucose [Mass/Vol] 84 mg/dL Normal 65-99 [facility] Comment on above: Performed By: #### 1 0839-9, , CBCA, CMP, 56831-7 #### [facility] ([id number]) [address] [place] [address] 64957 Potassium [Moles/Vol] 4.7 mmol/L Normal 3.5-5.0 [facility] Comment on above: Performed By: #### 1 0839-9, , CBCA, CMP, 96927-2 #### [facility] ([id number]) [address] [place] [address] 71398 Protein [Mass/Vol] 6.9 g/dL Normal 6.0-8.0 [facility] Comment on above: Performed By: #### 1 0839-9, , CBCA, CMP, 97374-6 #### [facility] ([id number]) [address] [place] [address] 55528 Sodium [Moles/Vol] 138 mmol/L Normal 134-146 [facility] Comment on above: Performed By: #### 1 0839-9, , CBCA, CMP, 02511-2 #### [facility] ([id number]) [address] [place] [address] 45410 Urea nitrogen [Mass/Vol] 12 mg/dL Normal 5-23 [facility] Comment on above: Performed By: #### 1 08399, , CBCA, CMP, 87484-1 #### [facility] ([id number]) [address] [place] [address] BRAIN WO CONTon CT BRAIN WO [...] Roblero MD on 10/28/2023 5:13 PM Normal [facility] Fibrin D-dimer DDU (PPP) [Ma ss/Vol]on 10-28-2023 D DIMER <150 Normal <255 [facility] Comment on above: Result Comment: Results <255 ng/mL DDU: The presence of a VTE can safely be excluded with a negative D-Dimer result and Wells score. A negative result doesn't exclude the possibility of DIC. The test be repeated along with other diagnostic tests if the patient's symptoms persist or worsen. [email or web address] Performed By: #### 1 0839-9, , CBCA, CMP, 40639-3 #### [facility] ([id number]) [address] [place] [address] 93880 MAGNESIUMon 10-28-2023 Magnesium [Mass/Vol] 2.0 mg/dL Normal 1.8-2.6 [facility] Comment on above: Performed By: #### 1 0839-9, 44354-8, CBCA, CMP, 77380-0 #### [facility] ([id number]) [address] [place] [address] 98701 SARS/FLU A+B/RSV by NAAT/Mol ecularon 10-28-2023 SARS/FLU [...] operators who are performing tests using either [employer] or [employer] systems and is limited to laboratories that [...] repeat. Fact Sheet for Healthcare Providers: https://www.fda.gov/ media/876018/downloa d Fact Sheet for Patients: https://www.fda.gov/ media/822343/downloa d Normal [facility] Comment on above: Performed By: #### C OVFLR #### [facility] ([id number]) [address] [place] [address], [place] [address] TROPONIN Ion 10-28-2023 Troponin I.cardiac [Mass/Vol] ng/mL Normal 0.00-0.04 [facility] Comment on above: Performed By: #### 1 0839-9, 75011-7, CBCA, CMP, 62198-8 #### [facility] ([id number]) [address] [place] [address], [place] [address] URN MACROSCOPIC NURon 2022 BILIRUBIN OLIVIA Negative Normal NEG [facility] Comment on above: Performed By: #### N UM #### [facility] ([id number]) [address] [place] [address] [place] [address] BLOOD/HGB OLIVIA Trace Abnormal NEG [facility] Comment on above: Performed By: #### N UM #### [facility] ([id number]) [address] [place] [address], [place] [address] GLUCOSE OLIVIA Negative Normal NEG [facility] Comment on above: Performed By: #### N UM #### [facility] ([id number]) [address] [place] [address] [place] [address] KETONES OLIVIA Negative Normal NEG [facility] Comment on above: Performed By: #### N UM #### [facility] ([id number]) [address] [place] [address] [place] [address] LEUKOCYTE ESTERASE OLIVIA Negative Normal NEG [facility] Comment on above: Performed By: #### N UM #### [facility] ([id number]) [address] [place] [address], [place] [address] NITRITE OLIVIA Negative Normal NEG [facility] Comment on above: Performed By: #### N UM #### [facility] ([id number]) [address] [place] [address] [place] [address] PH OLIVIA 6.0 Normal 5.0-8.5 [facility] Comment on above: Performed By: #### N UM #### [facility] ([id number]) [address] [place] [address] [place] [address] PROTEIN OLIVIA Negative Normal NEG [facility] Comment on above: Performed By: #### N UM #### [facility] ([id number]) [address] [facility], [place] [address] SPECIFIC GRAVITY OLIVIA 1.010 Normal 1.003-1.035 [facility] Comment on above: Performed By: #### N UM #### [facility] ([id number]) [address] [facility], [place] [address] UROBILINOGEN OLIVIA 0.2 eu/dL Normal <1.1 [facility] Comment on above: Performed By: #### N UM #### [facility] ([id number]) [address] [place] [address] COVID/FLU/RSV RT-PCRon 12-24 SARS-CoV-2 (COVID-19) RNA KAREN+probe Ql (Unsp spec) Negative [facility] [email or web address] Other COVID/FLU/RSV RT-PCR Negative [facility] [employer] Other SARS-CoV-2 (COVID-19) RNA NA A+probe Ql (Resp)on 06-01-2022 SARS-CoV-2 (COVID-19) RNA KAREN+probe Ql (Unsp spec) Positive [employer] Other REJI by IFAon 03-22-2022 Antinuclear Antibodies, IFA Negative Normal [facility] Comment on above: Result Comment: Nega tive <1:80 Borderline 1:80 Positive >1:80 ICAP nomenclature: AC-0 For more information about Hep-2 cell patterns use ANApatterns.org, the official website for the International Consensus on Antinuclear Antibody (REJI) Patterns (ICAP). Performed By: #### A LILIAM #### [facility] [address] [place] [address] Dr. Andre Haynes THYROID ANTIBODIESon 022 Thyroglobulin Antibody <1.0 Normal 0.0-0.9 [facility] Comment on above: Result Comment: Thyr oglobulin Antibody measured by [employer] Performed By: #### T TIMOBS #### [facility] [address] [place] [address] Dr. Andre Haynes Thyroid Peroxidase (TPO) Ab 10 IU/mL Normal 0-34 [facility] Comment on above: Performed By: #### T HYRABS #### [facility] [address] [place] [address] Dr. Andre Haynes ANTISTREPTOLYSIN O AB (ASO)o n 03-19-2022 Antistreptolysin O Ab <20.0 Normal 0.0-200.0 [facility] Comment on above: Performed By: #### A SOAB #### [facility] [address] [place] [address] Dr. Andre Haynes RHEUMATOID FACTORon 03-19-20 RA Latex Turbid. <10.0 Normal <14.0 [facility] Comment on above: Performed By: #### R F #### [facility] [address] [place] [address] Dr. Andre Haynes CBC AUTO DIFFon 03-18-2022 BASO # 0.0 103/ul Normal 0.0-0.1 [facility] Comment on above: Performed By: #### C BC #### [facility] [address] [place] [address] Dr. Andre Haynes Basophils/100 WBC (Bld) 0.3 % Normal 0.2-2.0 [facility] Comment on above: Performed By: #### C BC #### [facility] [address] [place] [address] Dr. Andre Haynes EO # 0.4 103/ul Normal 0.0-0.7 [facility] Comment on above: Performed By: #### C BC #### [facility] [address] [place] [address] Dr. Andre Haynes Eosinophils/100 WBC (Bld) 4.0 % Normal 0.9-7.0 [facility] Comment on above: Performed By: #### C BC #### [facility] [address] [place] [address] Dr. Andre Haynes Erythrocyte distribution width (RBC) [Ratio] 12.5 % Normal 11.0-15.0 [facility] Comment on above: Performed By: #### C BC #### [facility] [address] [place] [address] Dr. Andre Haynes Hematocrit (Bld) [Volume fraction] 41.9 % Normal 36.0-48.0 [facility] Comment on above: Performed By: #### C BC #### [facility] [address] [place] [address] Dr. Andre Haynes Hemoglobin (Bld) [Mass/Vol] 14.4 g/dL Normal 12.0-16.0 [facility] Comment on above: Performed By: #### C BC #### [facility] [address] [place] [address] Dr. Andre Haynes IG # 0.04 10e3/ul Critically high 0.00-0.03 [facility] Comment on above: Performed By: #### C BC #### [facility] [address] [place] [address] Dr. Andre Haynes IG % 0.4 % Normal 0.0-0.5 [facility] Comment on above: Performed By: #### C BC #### [facility] [address] [place] [address] Dr. Andre Haynes LYMPH # 2.6 103/ul Normal 1.2-3.8 [facility] Comment on above: Performed By: #### C BC #### [facility] [address] [place] [address] Dr. Andre Haynes Lymphocytes/100 WBC (Bld) 29.2 % Normal 20.5-60.0 [facility] Comment on above: Performed By: #### C BC #### [facility] [address] [place] [address] Dr. Andre Haynes MANUAL DIFF REQ NO Normal [facility] Comment on above: Performed By: #### C BC #### [facility] [address] [place] [address] Dr. Andre Haynes MCH (RBC) [Entitic mass] 33.3 pg Normal 26.7-34.0 [facility] Comment on above: Performed By: #### C BC #### [facility] [address] [address] [address] Andre Haynes MCHC (RBC) [Mass/Vol] 34.4 g/dL Normal 29.9-35.2 [facility] Comment on above: Performed By: #### C BC #### [facility] [address] [address] [address] Andre Haynes MCV (RBC) [Entitic vol] 97.0 fL Normal 81.0-99.0 [facility] Comment on above: Performed By: #### C BC #### [facility] [address] [place] [address] Dr. Andre Haynes MONO # 0.6 103/ul Normal 0.3-0.8 [facility] Comment on above: Performed By: #### C BC #### [facility] [address] [place] [address] Dr. Andre Haynes Monocytes/100 WBC (Bld) 6.4 % Normal 1.7-12.0 [facility] Comment on above: Performed By: #### C BC #### [facility] [address] [place] [address] Dr. Andre Haynes NEUT # 5.4 103/ul Normal 1.4-6.5 [facility] Comment on above: Performed By: #### C BC #### [facility] [address] [place] [address] Dr. Andre Haynes Neutrophils/100 WBC (Bld) 59.7 % Normal 43.0-75.0 [facility] Comment on above: Performed By: #### C BC #### [facility] [address] [address] [address] Andre Haynes Platelet mean volume (Bld) [Entitic vol] 9.9 fL Normal 9.5-13.5 [facility] Comment on above: Performed By: #### C BC #### [facility] [address] [place] [address] Dr. Andre Haynes PLT 217 103/ul Normal 150-450 [facility] Comment on above: Performed By: #### C BC #### [facility] [address] [place] [address] Dr. Andre Haynes RBC 4.32 106/ul Normal 4.20-5.40 [facility] Comment on above: Performed By: #### C BC #### [facility] [address] [place] [address] Dr. Andre Haynes WBC 9.0 103/ul Normal 4.0-11.0 [facility] Comment on above: Performed By: #### C BC #### [facility] [address] [place] [address] Dr. Andre Haynes CRPon 03-18-2022 CRP [Mass/Vol] mg/L Normal <=1.0 [facility] Comment on above: Performed By: #### R F #### [facility] [address] [place] [address] Dr. Andre Haynes FERRITINon 03-18-2022 Ferritin [Mass/Vol] 35.0 ng/mL Normal 6.2-137.0 [facility] Comment on above: Performed By: #### R F #### [facility] [address] [place] [address] Dr. Andre Haynes FREE T3on 03-18-2022 FREE T3 3.61 pg/mlL Normal 2.18-3.98 [facility] Comment on above: Performed By: #### R F #### [facility] [address] [place] [address] Dr. Andre Haynes FREE T4on 03-18-2022 Free T4 [Mass/Vol] 1.00 ng/dL Normal 0.76-1.46 [facility] Comment on above: Performed By: #### R F #### [facility] [address] [place] [address] Dr. Andre Haynes IRONon 03-18-2022 Iron [Mass/Vol] 87.0 ug/dL Normal 50.0-170.0 [facility] Comment on above: Performed By: #### R F #### [facility] [address] [place] [address] Dr. Andre Haynes LIVER PROFILEon 03-18-2022 Albumin [Mass/Vol] 3.7 g/dL Normal 3.4-5.0 [facility] Comment on above: Performed By: #### R F #### [facility] [address] [place] [address] Dr. Andre Haynes Albumin/Globulin [Mass ratio] 1.3 {ratio} Normal [facility] Comment on above: Performed By: #### R F #### [facility] [address] [place] [address] Dr. Andre Haynes ALP [Catalytic activity/Vol] 74 U/L Normal 46-116 [facility] Comment on above: Performed By: #### R F #### [facility] [address] [place] [address] Dr. Andre Haynes ALT [Catalytic activity/Vol] 24 U/L Normal 14-59 [facility] Comment on above: Performed By: #### R F #### [facility] [address] [place] [address] Dr. Andre Haynes AST [Catalytic activity/Vol] 13 U/L Critically low 15-37 [facility] Comment on above: Performed By: #### R F #### [facility] [address] [place] [address] Dr. Andre Haynes BILI, CONJUGATED 0.1 mg/dL Normal 0.0-0.2 [facility] Comment on above: Performed By: #### R F #### [facility] [address] [place] [address] Dr. Andre Haynes Bilirubin [Mass/Vol] 0.3 mg/dL Normal 0.2-1.0 [facility] Comment on above: Performed By: #### R F #### [facility] [address] [place] [address] Dr. Andre Haynes Globulin (S) [Mass/Vol] 2.8 g/dL Normal [facility] Comment on above: Performed By: #### R F #### [facility] [address] [place] [address] Dr. Andre Haynes Protein [Mass/Vol] 6.5 g/dL Normal 6.4-8.2 [facility] Comment on above: Performed By: #### R F #### [facility] [address] [address] [address] Andre Haynes PROF CHEM 8 (BAS METB)on Anion gap [Moles/Vol] 12.0 mmol/L Normal [facility] Comment on above: Performed By: #### F T3, LIVER, BMP, TSH, URIC, CRP #### [facility] [address] [address] [address] Andre Haynes Calcium [Mass/Vol] 8.8 mg/dL Normal 8.5-10.1 [facility] Comment on above: Performed By: #### F T3, LIVER, BMP, TSH, URIC, CRP #### [facility] [address] [address] [address] Andre Haynes Chloride [Moles/Vol] 104 mmol/L Normal 98-107 [facility] Comment on above: Performed By: #### F T3, LIVER, BMP, TSH, URIC, CRP #### [facility] [address] [address] [address] Andre Haynes CO2 [Moles/Vol] 25.8 mmol/L Normal 21.0-32.0 [facility] Comment on above: Performed By: #### F T3, LIVER, BMP, TSH, URIC, CRP #### [facility] [address] [address] [address] Andre Haynes Creatinine [Mass/Vol] 1.05 mg/dL Critically high 0.55-1.02 [facility] Comment on above: Performed By: #### F T3, LIVER, BMP, TSH, URIC, CRP #### [facility] [address] [address] [address] Andre Haynes EGFR-AF WALLISIAN >60 Normal >=60 [facility] Comment on above: Performed By: #### F T3, LIVER, BMP, TSH, URIC, CRP #### [facility] [address] [address] [address] Andre Haynes EGFR-NON AF WALLISIAN 58 mL/min/1.73m2 Critically low >=60 [facility] Comment on above: Performed By: #### F T3, LIVER, BMP, TSH, URIC, CRP #### [facility] [address] [address] [address] Andre Haynes Glucose [Mass/Vol] 85 mg/dL Normal 74-106 [facility] Comment on above: Performed By: #### F T3, LIVER, BMP, TSH, URIC, CRP #### [facility] [address] [address] [address] Andre Haynes Potassium [Moles/Vol] 3.8 mmol/L Normal 3.5-5.1 [facility] Comment on above: Performed By: #### F T3, LIVER, BMP, TSH, URIC, CRP #### [facility] [address] [address] [address] Andre Haynes Sodium [Moles/Vol] 138 mmol/L Normal 136-145 [facility] Comment on above: Performed By: #### F T3, LIVER, BMP, TSH, URIC, CRP #### [facility] [address] [address] [address] Andre Haynes Urea nitrogen [Mass/Vol] 11.0 mg/dL Normal 7.0-18.0 [facility] Comment on above: Performed By: #### F T3, LIVER, BMP, TSH, URIC, CRP #### [facility] [address] [address] [address] Andre Haynes Urea nitrogen/Creatinine [Mass ratio] 10.5 mg/mg Normal [facility] Comment on above: Performed By: #### F T3, LIVER, BMP, TSH, URIC, CRP #### [facility] [address] [address] [address] Andre Haynes PROTIMEon 03-18-2022 INR Coag (PPP) [Relative time] 1.01 {INR} Normal [facility] Comment on above: Performed By: #### P TT, PT #### [facility] [address] [address] [address] Andre Haynes INR GUIDELINES SEE BELOW Normal [facility] Comment on above: Result Comment: BRICE RED INR: 2.0 - 3.0 CONDITIONS NOT LISTED BELOW 2.5 - 3.5 FOR PROSTHETIC HEART VALVE REPLACEMENT 2.5 - 3.5 RECURRENT THROMBOSIS Performed By: #### P TT, PT #### [facility] [address] [place] [address] Dr. Andre Haynes PT Coag (PPP) [Time] 10.9 s Normal 9.0-11.6 [facility] Comment on above: Performed By: #### P TT, PT #### [facility] [address] [place] [address] Dr. Andre Haynes PTTon 03-18-2022 aPTT Coag (Bld) [Time] 27.2 s Normal 22.3-36.2 [facility] Comment on above: Performed By: #### P TT, PT #### [facility] [address] [place] [address] Dr. Andre Haynes [facility] SED RATE 1 mm/hr Normal <=20 [facility] Comment on above: Performed By: #### A SOAB #### [facility] [address] [place] [address] Dr. Andre Haynes TSHon 03-18-2022 TSH 2.218 uIU/mL Normal 0.358-3.740 [facility] Comment on above: Performed By: #### R F #### [facility] [address] [place] [address] Dr. Andre Haynes TSH RANGE SEE BELOW Normal [facility] Comment on above: Result Comment: <0.3 4 UIU/ml HYPERTHYROID 0.34-5.60 UIU/ml EUTHYROID >5.60 UIU/ml HYPOTHYROID Performed By: #### R F #### [facility] [address] [place] [address] Dr. Andre Haynes UA (CLEAN/CATCH) TRAIN BRAKEMAN/MICRO I F IND.on 03-18-2022 Bilirubin Ql (U) Negative Normal NEGATIVE [facility] Comment on above: Performed By: #### R F #### [facility] [address] [place] [address] Dr. Andre Haynes Clarity (U) CLEAR Normal CLEAR [facility] Comment on above: Performed By: #### R F #### [facility] [address] [place] [address] Dr. Andre Haynes Color (U) YELLOW Normal YELLOW [facility] Comment on above: Performed By: #### R F #### [facility] [address] [place] [address] Dr. Andre Haynes Glucose Ql (U) Negative Normal NEGATIVE [facility] Comment on above: Performed By: #### R F #### [facility] [address] [place] [address] Dr. Andre Haynes Hemoglobin Ql (U) Negative Normal NEGATIVE [facility] Comment on above: Performed By: #### R F #### [facility] [address] [place] [address] Dr. Andre Haynes Ketones Ql (U) Negative Normal NEGATIVE [facility] Comment on above: Performed By: #### R F #### [facility] [address] [place] [address] Dr. Andre Haynes LEUKOCYTES Negative Normal NEGATIVE [facility] Comment on above: Performed By: #### R F #### [facility] [address] [place] [address] Dr. Andre Haynes Nitrite Ql (U) Negative Normal NEGATIVE [facility] Comment on above: Performed By: #### R F #### [facility] [address] [place] [address] Dr. Andre Haynes pH (U) 6.0 [pH] Normal 5-9 [facility] Comment on above: Performed By: #### R F #### [facility] [address] [place] [address] Dr. Andre Haynes SPEC GRAVITY 1.020 Normal 1.005-<=1.025 [facility] Comment on above: Performed By: #### R F #### [facility] [address] [place] [address] Dr. Andre Haynes UA PROTEIN Negative Normal NEGATIVE/ TRACE [facility] Comment on above: Performed By: #### R F #### [facility] [address] [place] [address] Dr. Andre Haynes UR MICRO IND MICROSCOPIC ALREADY ORDERED Normal [facility] Comment on above: Performed By: #### R F #### [facility] [address] [place] [address] Dr. Andre Haynes Urobilinogen Qn (U) 0.2 {Rafal'U}/dL Normal 0.2 - 1. 0 [facility] Comment on above: Performed By: #### R F #### [facility] [address] [place] [address] Dr. Andre Haynes URIC ACID SERUMon 03-18-2022 Urate [Mass/Vol] 3.9 mg/dL Normal 2.6-6.0 [facility] Comment on above: Performed By: #### R F #### [facility] [address] [place] [address] Dr. Andre Haynes URINE MICROSCOPIC ONLYon BACTERIA NONE SEEN Normal NONE SEEN [facility] Comment on above: Performed By: #### R F #### [facility] [address] [place] [address] Dr. Andre Haynes Bacteria identified Cx Nom (U) NOT INDICATED Normal [facility] Comment on above: Performed By: #### R F #### [facility] [address] [place] [address] Dr. Andre Haynes CAST NONE SEEN Normal NONE SEEN [facility] Comment on above: Performed By: #### R F #### [facility] [address] [place] [address] Dr. Andre Haynes Crystals LM Nom (Urine sed) NONE SEEN Normal NONE SEEN [facility] Comment on above: Performed By: #### R F #### [facility] [address] [place] [address] Dr. Andre Haynes Epithelial cells LM Ql (Urine sed) FEW Abnormal NONE SEEN /RARE [facility] Comment on above: Performed By: #### R F #### [facility] [address] [place] [address] Dr. Adnre Haynes MUCOUS NONE SEEN Normal NONE SEEN [facility] Comment on above: Performed By: #### R F #### [facility] [address] [place] [address] Dr. Andre Haynes RBC 0-2 Normal 0-2 [facility] Comment on above: Performed By: #### R F #### [facility] [address] [place] [address] Dr. Andre Haynes WBC NONE SEEN Normal NONE SEEN [facility] Comment on above: Performed By: #### R F #### [facility] [address] [place] [address] Dr. Andre Haynes ER URINE PROFILEon 2 Bilirubin Ql (U) Negative Normal NEGATIVE [facility] Comment on above: Performed By: #### E RUR #### [facility] [address] [place] [address] Dr. Andre Haynes Clarity (U) CLEAR Normal CLEAR [facility] Comment on above: Performed By: #### E RUR #### [facility] [address] [place] [address] Dr. Andre Haynes Color (U) LT. YELLOW Normal YELLOW [facility] Comment on above: Performed By: #### E RUR #### [facility] [address] [place] [address] Dr. Andre SHAFER A micrscopic examination will be performed if indicated. Normal [facility] Comment on above: Performed By: #### E RUR #### [facility] [address] [place] [address] Dr. Andre Haynes Glucose Ql (U) Negative Normal NEGATIVE [facility] Comment on above: Performed By: #### E RUR #### [facility] [address] [place] [address] Dr. Andre Haynes Hemoglobin Ql (U) Negative Normal NEGATIVE [facility] Comment on above: Performed By: #### E RUR #### [facility] [address] [place] [address] Dr. Andre Haynes Ketones Ql (U) Negative Normal NEGATIVE [facility] Comment on above: Performed By: #### E RUR #### [facility] [address] [place] [address] Dr. Andre Haynes LEUKOCYTES Negative Normal NEGATIVE [facility] Comment on above: Performed By: #### E RUR #### [facility] [address] [place] [address] Dr. Andre Haynes Nitrite Ql (U) Negative Normal NEGATIVE [facility] Comment on above: Performed By: #### E RUR #### [facility] [address] [place] [address] Dr. Andre Haynes pH (U) 6.0 [pH] Normal 5-9 [facility] Comment on above: Performed By: #### E RUR #### [facility] [address] [place] [address] Dr. Andre Haynes SPEC GRAVITY <=1.005 Abnormal 1.005-<=1.025 [facility] Comment on above: Performed By: #### E RUR #### [facility] [address] [place] [address] Dr. Andre Haynes UA PROTEIN Negative Normal NEGATIVE/ TRACE [facility] Comment on above: Performed By: #### E RUR #### [facility] [address] [place] [address] Dr. Andre Haynes UR MICRO IND NOT INDICATED Normal [facility] Comment on above: Performed By: #### E RUR #### [facility] [address] [place] [address] Dr. Andre Haynes Urobilinogen Qn (U) 0.2 {Rafal'U}/dL Normal 0.2 - 1. 0 [facility] Comment on above: Performed By: #### E RUR #### [facility] [address] [place] [address] Dr. Andre Haynes XR LSPINE MIN 4 [...] TESS BANGURA Date: 2021-11-19 07:38 Normal [facility] OUTSIDE CONSULT MSKon 2020 OUTSIDE CONSULT [facility] Department of Radiology [address] [place] [id number] Patient Name: ROSELIA LO : 1980 Sex: F Age: Race: White Pt. Location: [facility]OP Patient Status: Ordered Date: 02/05/2021 3:35:00 PM Completed Date: 02/05/2021 03:51 PM Requesting Provider: OLE TUCKER Attending Provider: Report Copy To: Signs & Symptoms: pt has persistent rt sided pectoralis pain and weakness. Assess pectoralis tendon for injury and/or tear History: Mri of rt shoulder from [facility] dated 11/05/20. Over read requested by Dr Tucker Comments: Exam: OUTSIDE CONSULT [facility] OUTSIDE CONSULT [facility] 02/05/2021 3:51 PM OUTSIDE STUDY: TECHNIQUE: Outside images of the right shoulder obtained from [facility] dated November 05, 2020. Image review with formal consultation was requested by Dr. Ole Monsalve. FINDINGS : Axial images show no evidence [...] interpretation. Electronically signed: Jonathan Shabazz. Transcribed by: [email or web address], User Resident: JONATHAN SHABAZZ Electronically Signed by: JONATHAN SHABAZZ @ 02/13/2021 12:32 PM I personally read this/these film(s) with this resident Normal [facility] Vital Signs Date Time Vital Sign Value Performing Clinician Facility 12-24-2022 09:25-0500 Body height 160.02 cm Aicha Shankar Other [facility] Other 12-24-2022 09:25-0500 Body mass index (BMI) [Ratio] 29.58 kg/m2 Aicha Shankar Other [facility] Other 12-24-2022 09:25-0500 Body temperature 98.8 [degF] Aicha Shankar Other [facility] Other 12-24-2022 09:25-0500 Body weight 75.75 kg Aicha Shankar Other [facility] Other 12-24-2022 09:25-0500 Respiratory rate 18 /min Aicha Shankar Other [facility] Other 12-24-2022 09:25-0500 SaO2% (BldA) [Mass fraction] 95 % Aicha Shankar Other [facility] Other 06-01-2022 18:20-0400 Body height 160.02 cm Aicha Shankar Other [facility] Other 06-01-2022 18:20-0400 Body mass index (BMI) [Ratio] 27.45 kg/m2 Aicha Shankar Other [facility] Other 06-01-2022 18:20-0400 Body temperature 99.5 [degF] Aicha Shankar Other [facility] Other 06-01-2022 18:20-0400 Body weight 70.31 kg Aicha Shankar Other [facility] Other 06-01-2022 18:20-0400 Respiratory rate 18 /min Aicha Shankar Other [facility] Other 06-01-2022 18:20-0400 SaO2% (BldA) [Mass fraction] 98 % Aicha Shankar Other [facility] Other Encounters Encounter Date Encounter Type Care Provider Facility Start: 01-30-2024 End: 01-30-2024 ambulatory AINSLEY SELLERS Not Available Start: 01-18-2024 End: 01-19-2024 ambulatory SWETA PORTILLO Not Available Start: 01-12-2024 End: 01-12-2024 ambulatory AINSLEY AICHHOLZ Not Available Start: 12-22-2023 End: 12-22-2023 ambulatory [facility] Ob Director Of Business Systems [facility] [place] Comment on above: Encounter for survei llance of injectable contraceptive (Primary Dx) Start: 11-17-2023 End: 11-17-2023 ambulatory AINSLEY AICHHOLZ Not Available Start: 11-15-2023 Telephone encounter Sharri birmingham [facility] Physicians Obstetrics/Gynecology Start: 10-28-2023 End: 10-29-2023 Emergency department patient visit DIDI Angélica [facility] Start: 10-28-2023 End: 10-29-2023 [facility] Start: 10-06-2023 End: 10-06-2023 ambulatory SHAIKH ANDREWTRIXIE Not Available Start: 12-24-2022 End: 12-24-2022 ambulatory Aicha Vonnie Other [facility] Other Start: 12-24-2022 Office outpatient vi sit 25 minutes Aicha Vonnie [facility] Start: 06-01-2022 End: 06-01-2022 ambulatory Aicha Vonnie Other [facility] Other Start: 06-01-2022 Office outpatient ne w 30 minutes Aicha Vonnie [facility] Start: 03-18-2022 End: 03-19-2022 ambulatory HEALTH CENTER MANAGER AINSLEY AICHHOLZ Facility:[facility] Start: 01-29-2022 End: 01-29-2022 ambulatory HEALTH CENTER MANAGER AINSLEY AICHHOLZ Facility:[facility] Start: 11-24-2021 End: 11-27-2021 ambulatory HEALTH CENTER MANAGER AINSLEY AICHHOLZ Facility:[facility] Start: 11-18-2021 End: 11-19-2021 ambulatory HEALTH CENTER MANAGER AINSLEY AICHHOLZ Facility:[facility] Start: 10-17-2021 End: 10-17-[address] RANDOLPH CADET Facility:[facility] Start: 01-06-2021 End: 01-21-2021 ambulatory PHYSICIAN UNKNOWN Facility:[facility] Procedures Date Procedure Procedure Detail Performing Clinician Start: 04-26-2023 Adult depression scr eening assessment Sharri Gipson Start: 04-15-2023 Mammography Sharri Gipson Start: 03-24-2022 Microscopic observat ion [Identifier] in Cervix by Cyto stain Sharri Gipson Plan of Treatment Date Care Activity Detail Author Start: 03-24-2025 Screening for malign ant neoplasm of cervix Pap Smear [facility] Start: 10-28-2024 Tobacco Screening Tobacco Screening [facility] Start: 04-26-2024 Adult BMI Follow Up Plan Adult BMI Follow Up Plan [facility] Start: 04-26-2024 Adult BMI Screening Adult BMI Screen ing [facility] Start: 04-26-2024 Depression Screening Depression Scre ening [facility] Start: 04-15-2024 Screening for malign ant neoplasm of breast Mammogram [facility] Start: 03-13-2024 End: 03-13-2024 ambulatory 03/13/2024 11:45 AM EDT Nurse Injection [facility] [place] [address] [place] [address] [facility] [place] Start: 12-21-2023 End: 12-21-2023 ambulatory 12/21/2023 3:30 PM EST [facility] [place] [address] [place] [address] [facility] [place] Start: 07-01-2023 COVID-19 Vaccine ( season) COVID-19 Vaccine ( season) [facility] Start: 07-01-2023 Influenza vaccination Influenza Vacc ine [facility] Start: 1999 DTaP,Tdap and Td Vaccines (1 - Tdap) DTaP,Tdap and Td Vaccines (1 - Tdap) [facility] Start: 1980 Tobacco Counseling Tobacco Counselin g [facility] Immunizations Immunization Date Immunization Notes Care Provider Mariam leon 09-03-2022 influenza virus vaccine, unspecified formulation Sharri Gipson [facility] Payers Date Payer Category Payer Private Health [facility] [id number] 2022-Present [phone] [address] [address] [place] [address] [id number] 2022 Unknown [id number] [id number] 1980 Unknown [id number] 2.16.840.1.040079.3.579 .2.647 1980 Unknown [id number] 2.16.840.1.167542.3.579 .2.593 1980 Unknown [id number] 2.16.840.1.298361.3.579 .2.593 1980 Unknown [id number] 2.16.840.1.449125.3.579 .2.593 1980 Unknown [id number] 2.16.840.1.446257.3.579 .2.593 1980 Unknown [id number] 2.16.840.1.284570.3.579 .2.593 1980 Unknown [id number] 2.16.840.1.396226.3.579 .2.1286 1980 Unknown [id number] 2.16.840.1.615602.3.579 .2.1286 1980 Unknown [id number] 2.16.840.1.722851.3.579 .2.1286 1980 Unknown [id number] 2.16.840.1.952712.3.579 .2.1286 1980 Unknown [id number] 2.16.840.1.748497.3.579 .2.1259 1980 Unknown [id number] 2.16.840.1.609735.3.579 .2.1259 1980 Unknown [id number] 2.16.840.1.559961.3.579 .2.1259 1980 Unknown [id number] 2.16.840.1.776636.3.579 .2.1259 1980 Unknown [id number] 2.16.840.1.106645.3.579 .2.1259 1980 Unknown [id number] 2.16.840.1.000693.3.579 .2.1259 1959 Unknown [id number] Worker's Compensation [id number] Social History Date Type Detail Facility Start: 12-10-2020 End: 10-28-2023 Sex Assigned At [facility] Other Start: 10-31-2000 Tobacco smoking stat [facility] Smokes tobacco daily [facility] Start: 10-31-2000 History of tobacco use Cigarette Smo ker [facility] Start: 12-10-2020 End: 04-12-2023 Cigarettes smoked current (pack per day) - Reported 0.5 [facility] Start: 04-12-2023 Tobacco use and exposure Smokeless tobacco non-user [facility] Start: 10-28-2023 Alcohol intake Current non-dr oil recovery operator of alcohol (finding) [facility] Adolescent depressio n screening assessment 7 [facility] Start: 1980 Sex Assigned At Not on file P [facility] Clinical Notes 06-01-2022 to 12-22-2023 Haley Velez LPN - 12/22/2023 3:30 PM ESTTelephone Encounter - Sharri Gipson - 11/15/2023 11:19 AM ESTTelephone Encounter - Ainsley Hay APRN- FADI - 11/15/2023 11:19 AM EST Note Date [...] Depo calendar given. [facility] 11-15-2023 Miscellaneous Notes Patient called the office [...] understood. SAURABH Camacho [facility] this encounter [facility] 11-15-2023 Telephone encounter Note Patient called the [...] with recommendations for the patient. Thank you. [facility] [employer] [facility] 11-15-2023 Telephone encounter Note If patient [...] come in for an appt. Thank you. [facility] 11-15-2023 Telephone encounter Note LVM for patient to return our call [facility] 11-15-2023 Telephone encounter Note Pt called back and informed her of this information. Pt verbalized she understood. SAURABH Camacho [facility] 10-28-2023 Note XR CHEST 2 VWS Procedure: Chest x-ray performed Number of views:2 History:Syncope Comparison:10/03/2010 Findings: The heart and lungs show no acute findings, and the mediastinum and meliza are grossly negative . Impression: 1. No acute change. Finalized by Ronni Roblero MD on 10/28/2023 7:04 PM [facility] 12-24-2022 Evaluation note Encounter Date Diagnosis [...] as decrease in urine, dry mouth, etc [facility] Other 08-02-2022 Evaluation note* Encounter Date Diagnosis [...] action if you have chronic health conditions. [facility] Other Evaluation note* Diagnosis Encounter for surveillance of injectable contraceptive- Primary [facility] N[facility]ative - Reported* Type Description Date Medical History Anxiety Surgical History C section x 3 Surgical History rotator cuff Surgical History cholecystectomy Hospitalization History Child [facility] Other History general Narrative - Reported* Type Description Date Medical History Anxiety Medical History Neuropathy Surgical History C section x 3 Surgical History rotator cuff Surgical History cholecystectomy Surgical History hip decompression left Hospitalization History Child [facility] Other InstructionsNot on filedocumented in this encounter [facility] SystemInstructionsNot on filedocumented in this encounter [facility] Summary Purpose Family History No Family History Records FoundNo Family History Records FoundNo Family History Records FoundNo Family History Records FoundNo Family History Records Found Advance Directives No Advanced Directives Records FoundNo Advanced Directives Records FoundNo Advanced Directives Records FoundNo Advanced Directives Records FoundNo Advanced Directives Records Found Additional Source Comments INFORMATION SOURCE (unrecogn ized section and content) DATE CREATED AUTHOR 02/18/2021 [facility] DATE CREATED AUTHOR AUTHOR'S ORGANIZ ATION 06/01/2022 [facility] DATE CREATED AUTHOR AUTHOR'S ORGANIZ ATION 10/30/2023 [facility] DATE CREATED AUTHOR AUTHOR'S ORGANIZ ATION 12/30/2023 [facility] DATE CREATED AUTHOR AUTHOR'S ORGANIZ ATION 01/31/2024 [facility] EPIC REASON FOR VISIT (unrecogniz ed section and content) Reason Comments Contraception Pt is here for DEPO Care Teams (unrecognized sec tion and content) Volcanology Professor Relationship Specialty Start Date End Date Ainsley Sellers APRN-[facility] [address] [place] [id number] PCP - General Nurse Practitioner 03/30/22 Volcanology Professor Relationship Specialty Start Date End Date Ainsley Sellers APRN-[facility] [address] [place] [phone] PCP - General Nurse Practitioner 03/30/22 FOR [...] BE BASED ON THE PRIMARY CLINICAL RECORDS. [facility] [employer] [facility]. provides no warranty or guarantee of the accuracy or completeness of information in this document.
[2024-02-14 08:35] LABS: HCG Qualitative NEGATIVE (NEGATIVE)
[2024-02-14 09:03] VITALS: BP 123/85; PULSE 90; TEMP 36.2; O2SAT 99
[2024-02-14 09:42] VITALS: BP 130/89; BP 140/89; PULSE 76; PULSE 78; O2SAT 94
--- NOTE | 2024-02-14 09:45 | P.ON_ITS ---
Date of procedure: 02/14/24 Pre-op diagnosis: Lumbar radiculopathy Post-op diagnosis: same as pre-op Procedure: Lumbar 5/Sacral 1 Epidural Steroid Injection Under fluoroscopic guidance Immediate complications none Solution used for injection: Marcaine 0.25% 2mL, 2cc Normal saline, Depo-Medrol 80mg Omnipaque 3 mL Anesthesia local 2% lidocaine up to 4ml Timeout process compliant After informed consent obtained. Patient brought to the procedure room placed in the prone position. Skin overlying the area was prepped and draped in a sterile fashion using betadine. 25 gauge needle used to raise a skin wheel with local anesthetic over the target area identified under fluoroscopy. A 17 gauge Touhy needle Was inserted over the anesthetized area and directed towards the inter- space under fluoroscopic guidance. Epidural space was identified with loss of resistance technique to air. Needle Tip placement confirmed with injection of contrast solution. Steroid solution was then injected. Anesthesia: Local Surgeon: Akanksha Barriga Condition: stable
[2024-02-14] MEDS: IOHEXOL 240 MG/ML - 10 ML VIAL 24 MG INJ (09:46)
[2024-02-14] MEDS: BUPIVACAINE HCL 0.25% PF 25 MG/10 ML VIAL 2 ML INJ (09:46)
[2024-02-14] MEDS: 0.9 % SODIUM CHLORIDE 10 ML SYRINGE - SALINE FLUSH 2 ML INJ (09:46)
[2024-02-14] MEDS: METHYLPREDNISOLONE ACETATE 80 MG/ML VIAL INJ (09:47)
[2024-02-14] MEDS: LIDOCAINE HCL 2% PF 100 MG/5 ML VIAL 2 ML INJ (09:47)
== END 2024-02-14 09:53 | disposition home or self-care (01) ==
LOC: SURGOUT 08:04
PROVIDERS: PCP Internal Medicine; Visit Provider Anesthesiology Pain Medicine
DX: M54.16 Radiculopathy, lumbar region (principal)
CPT/HCPCS: 36415; 62323; 84703; J1010; Q9966

== ENCOUNTER 2024-02-28 12:41 | Outpatient (OUT) | payer OTHER, SELFPAY ==
--- NOTE | 2024-02-28 | CONS_ITS ---
CONSULTATION DATE: 02/28/2024 TO: Ainsley Sellers CNP CHIEF COMPLAINT: Includes right leg pain. HISTORY: She returns today complaining of 3/10 pain in her lower back, right buttock area, right leg. She has undergone one L5-S1 epidural steroid injection on 02/14/2024. She reports the pain has improved by at least 50%. She reports the pain generally increases with activities such as standing, walking and performing transitioning maneuvers. She feels most comfortable in the semi- recumbent position. Denies any change in bowel and bladder habits or new sensorimotor changes in the lower extremities CURRENT MEDICATION: Includes Xanax 0.25 daily, Baclofen 10 mg b.i.d., gabapentin 300 mg two pills b.i.d. Her FRANKY on today?s visit was 42%. EXAM: Notable for patient having persistent weakness of her right extensor hallucis. Straight leg raise is now negative. She has a depressed right patella and Achilles reflex. She had no signs consistent with myelopathy. IMPRESSION: Our impression is patient appears to have residual right L5 radiculopathy. She has undergone successful lumbar epidural steroid injection, reduction of pain symptoms. RECOMMENDATIONS: She currently is awaiting surgery after she undergoes physical therapy under the care of Dr. Cutler. I will see the patient back in the office in six weeks? time or sooner if needed. I have instructed her to stay on the gabapentin through her surgery and into the recovery period, which we will be happy to manage moving forward. As part of providing excellent, safe, comprehensive care, the following was completed at our patient's visit: 1. A medication reconciliation and review to ensure accurate knowledge of current/active medications, including asking our patients to inform us about any [id number] medications or herbal remedies/nutritional supplements/alternative remedies. 2. A review to specifically ensure our patients have had annual screening for: elevated body mass index (BMI, see intake chart for exact total), tobacco use, screening for depression, and screening for unhealthy alcohol use. When screening is concerning, patients are provided with education and the specific recommendation to discuss the concerning health issue and treatment options with their primary care provider. [place]
--- OUTSIDE RECORDS SUMMARY | 2024-02-28 12:52 | XMS_ITS | CCD ---
Author Organization [facility] Care Team Providers Care Vaccine Customer Representative Name Role Phone UNKNOWN, PHYSICIAN Referring Unavailable UNKNOWN, PHYSICIAN Primary Care Unavailable EBRAHEIM, OLE Attending Unavailable EBRAHEIM, OLE Admitting Unavailable AICHHOLZ, OCCASIONAL BABYSITTER AINSLEY Admitting Unavailable SVETA, DR TESS Eaton Consulting Unavailable AICHHOLZ, OCCASIONAL BABYSITTER AINSLEY Attending Unavailable AICHHOLZ, OCCASIONAL BABYSITTER AINSLEY Primary Care Unavailable AICHHOLZ, OCCASIONAL BABYSITTER AINSLEY Consulting Unavailable AICHHOLZ, OCCASIONAL BABYSITTER AINSLEY Primary Care Unavailable AICHHOLZ, OCCASIONAL BABYSITTER AINSLEY Admitting Unavailable AICHHOLZ, OCCASIONAL BABYSITTER AINSLEY Attending Unavailable AICHHOLZ, OCCASIONAL BABYSITTER AINSLEY Primary Care Unavailable HELIO, DR RANDOLPH Mehta Admitting Unavailable HELIO, DR RANDOLPH Mehta Attending Unavailable HELIO, DR RANDOLPH Mehta Consulting Unavailable HELIO, DR RANDOLPH Mehta Admitting Unavailable YOLANDA, DR NEVAREZ Primary Care Unavailable HELIO, DR RANDOLPH Mehta Attending Unavailable HELIO, DR RANDOLPH Mehta Consulting Unavailable AICHHOLZ, OCCASIONAL BABYSITTER AINSLEY Primary Care Unavailable AICHHOLZ, OCCASIONAL BABYSITTER AINSLEY Admitting Unavailable AICHHOLZ, OCCASIONAL BABYSITTER AINSLEY Attending Unavailable AICHHOLZ, OCCASIONAL BABYSITTER AINSLEY Consulting Unavailable Aicha Shankar Unavailable AICHHOLZ, AINSLEY J Primary Care Unavailable DIDI TAYLOR. Attending Unavailable BRANDON, DIDI Lindsay Attending Unavailable BRANDON, DIDI ELouie Referring Unavailable AICHHOLZ, AINSLEY J Primary Care Unavailable BRANDON, DIDI E. Attending Unavailable BRANDON, DIDI E. Referring Unavailable AICHHOLZ, AINSLEY J Primary Care Unavailable Aichholz CLINIC CHARGE NURSE-OCCASIONAL BABYSITTER, Ainsley J Primary Care Provider RYAN SELLERSA J Referring Unavailable AICHHOLZ, AINSLEY J Primary Care Unavailable AICHHOLZ, AINSLEY Attending Unavailable AICHARMANDZ, AINSLEY Attending Unavailable SWETA PORTILLO Attending Unavailable SWETA PORTILLO Referring Unavailable AINSLEY SELLERS Attending Unavailable SHAIKH PÉREZ Attending Unavailable Allergies Allergy Classification Reported Allergen(s) Allergy Type Date of Onset Reaction(s) Facility diphenhydrAMINE (1 source) diphenhydrAMINE; Translations: [BENADRYL] Drug Allergy 08-19-20 10 [facility] Repository (4 sources) Codeine; Translations: [CODEINE] Drug Allergy 05-30-20 13 Seizures [facility] (1 source) diphenhydrAMINE Drug Allergy 05-30-20 13 [facility] (4 sources) Codeine Drug Allergy 05-06-20 17 [employer] Other (3 sources) diphenhydrAMINE Drug Allergy 02-24-20 24 [facility] (4 sources) diphenhydrAMINE; Translations: [DIPHENHYDRAMINE HCL] Drug Allergy 05-06-20 17 Halluc[facility] Medications Current Medications Medication Drug Class(es) Dates Sig (Normalized) Sig (Original) ALPRAZolam 0.25 mg oral tablet (5 sources) Benzodiazepine Start: 01-01-2024 Alprazolam Active MG PO January 01, 2024 1:00am Start: 03-18-2023 take 1 tablet by kaushal once daily as needed for anxiety ALPRAZolam (XANAX) 0.25 mg tablet TAKE 1 TABLET BY MOUTH EVERY DAY NEEDED FOR ANXIETY 0 03/18/2023 Active ALPRAZolam Activ e cyclobenzaprine hydrochloride 10 mg oral tablet (1 source) Muscle Relaxant Start: 01-01-2024 take 10 mg by mouth three times daily Cyclobenzaprine Active 10 MG PO Three times daily January 01, 2024 1:00am dexamethasone 4 mg oral tablet (1 source) Corticosteroid Start: 12-24-2022 take 1 tablet by mouth every twenty-four hours Dexamethasone 4 MG 1 tablet Orally Once a day for 5 days Dec, Active dextromethorphan hydrobromide 1.5 mg/ml / pyrilamine maleate 1.5 mg/ml oral solution (1 source) Uncompetitive T-xwfqvs-X-aspartat e Receptor Antagonist, Sigma-1 Agonist Start: 12-24-2022 [place] DM 7.5-7.5 MG/5ML 10 ml Orally every 6-8 hours as needed for 8 days Dec, Active FLUoxetine 20 mg oral capsule (3 sources) Serotonin Reuptake Inhibitor Start: 01-01-2024 Fluoxetine Active 40 MG PO January 01, 2024 1:00am FLUoxetine (PROz ac) 20 mg capsule Take 30 mg by mouth in the morning. 0 Active fluticasone propionate 0.05 mg/actuat metered dose nasal spray (1 source) Corticosteroid Start: 12-24-2022 take 1 spray(s) nasal route once daily Fluticasone Propionate 50 MCG/ACT 1 spray in each nostril Nasally Once a day for 21 days Dec, Active gabapentin 300 mg oral capsule (5 sources) Anti-epileptic Agent Start: 02-24-2024 take 300 mg by mouth three times daily Gabapentin Active 300 MG PO Three times daily February 24, 2024 9:28am Start: 01-01-2024 End: 02-24-2024 take 300 mg by mouth twice daily Gabapentin Discontinued 300 MG PO Twice daily January 01, 2024 1:00am February 24, 2024 9:28am take 1 capsule by mo ut in the morning, then take 1 capsule [...] tablet (3 sources) Serotonin-3 Receptor Antagonist Start: take 1 tablet by mouth every eight hours as needed Zofran ODT 4 MG 1 tablet on the tongue and allow to dissolve Orally every 8 hrs as needed for 4 days Dec, Active predniSONE 20 mg oral tablet (1 source) Start: 024 take 20 mg by mouth twice daily Prednisone Active 20 MG PO Twice daily 10 5 January 01, 2024 1:00am Start this prescription on January 01. sertraline 50 mg oral tablet (1 source) Serotonin Reuptake Inhibitor Sertraline HCl 50 MG TAKE 1 AND 1/2 TABLETS BY MOUTH DAILY Oral for 90 Days Active traZODone hydrochloride 50 mg oral tablet (2 sources) Serotonin Reuptake Inhibitor Start: 024 Trazodone Active MG PO January 01, 2024 1:00am Start: 10-19-2023 End: 11-18-2023 take 1 tablet by mouth once daily traZODone (DESYREL) 50 mg tablet Take 1 tablet (50 mg total) by mouth nightly. 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 SPECIALIST CURRENT DRUG THERAPY] Onset: 02-01-2022 Episodic Other [...] 10-28-20 ABSOLUTE BASOPHIL 0.1 X10E9/L Normal 0.0-0.2 [facility] Comment on above: Performed By: #### 1 0839-9, 71662-7, CBCA, CMP, 91956-7 #### [facility] ([id number]) [address] [place] [address], [place] [address] ABSOLUTE NEUTROPHIL 10.5 X10E9/L High 1.5-6.6 [facility] Comment on above: Performed By: #### 1 39-9, , CBCA, CMP, 80480-8 #### [facility] ([id number]) [address] [place] [address] 77565 Basophils/100 WBC (Bld) 0.4 % Normal [facility] Comment on above: Performed By: #### 1 9, , CBCA, CMP, 71603-8 #### [facility] ([id number]) [address] [place] [address] 16702 Eosinophils (Bld) [#/Vol] 0.3 10*3/uL Normal 0.0-0.4 [facility] Comment on above: Performed By: #### 1 9, , CBCA, CMP, 34930-3 #### [facility] ([id number]) [address] [place] [address] 20064 Eosinophils/100 WBC (Bld) 2.2 % Normal [facility] Comment on above: Performed By: #### 1 9, , CBCA, CMP, 45943-5 #### [facility] ([id number]) [address] [place] [address] 22358 Erythrocyte distribution width (RBC) [Ratio] 15.2 % High 11.5-15.0 [facility] Comment on above: Performed By: #### 1 399, , CBCA, CMP, 58649-6 #### [facility] ([id number]) [address] [place] [address] 65938 Hematocrit (Bld) [Volume fraction] 42.7 % Normal 35-47 [facility] Comment on above: Performed By: #### 1 39-9, , CBCA, CMP, 61518-3 #### [facility] ([id number]) [address] [place] [address] 48990 Hemoglobin (Bld) [Mass/Vol] 14.6 g/dL Normal 11.7-15.5 [facility] Comment on above: Performed By: #### 1 9, , CBCA, CMP, 06847-0 #### [facility] ([id number]) [address] [place] [address] 89440 Lymphocytes (Bld) [#/Vol] 1.7 10*3/uL Normal 1.0-3.5 [facility] Comment on above: Performed By: #### 1 9, , CBCA, CMP, 88244-3 #### [facility] ([id number]) [address] [place] [address] 15609 Lymphocytes/100 WBC (Bld) 12.8 % Normal [facility] Comment on above: Performed By: #### 1 9, , CBCA, CMP, 37337-1 #### [facility] ([id number]) [address] [place] [address] 75426 MCH (RBC) [Entitic mass] 33.8 pg Normal 27-34 [facility] Comment on above: Performed By: #### 1 9, , CBCA, CMP, 41595-9 #### [facility] ([id number]) [address] [place] [address] 09778 MCHC (RBC) [Mass/Vol] 34.3 g/dL Normal 32-36 [facility] Comment on above: Performed By: #### 1 9, , CBCA, CMP, 36241-9 #### [facility] ([id number]) [address] [place] [address] 92303 MCV (RBC) [Entitic vol] 99 fL Normal 80-100 [facility] Comment on above: Performed By: #### 1 0839-9, 23687-8, CBCA, CMP, 61082-6 #### [facility] ([id number]) [address] [place] [address] 91069 Monocytes (Bld) [#/Vol] 0.8 10*3/uL Normal 0-0.9 [facility] Comment on above: Performed By: #### 1 39-9, , CBCA, CMP, 66401-8 #### [facility] ([id number]) [address] [place] [address] 42652 Monocytes/100 WBC (Bld) 5.7 % Normal [facility] Comment on above: Performed By: #### 1 39-9, 48734-7, CBCA, CMP, 89809-5 #### [facility] ([id number]) [address] [place] [address] 88403 Neutrophils/100 WBC (Bld) 78.9 % Normal [facility] Comment on above: Performed By: #### 1 39-9, , CBCA, CMP, 85581-6 #### [facility] ([id number]) [address] [place] [address] 93355 Platelet mean volume (Bld) [Entitic vol] 8.6 fL Normal 7-12 [facility] Comment on above: Performed By: #### 1 0839-9, 33840-4, CBCA, CMP, 03324-2 #### [facility] ([id number]) [address] [place] [address] 44000 Platelets (Bld) [#/Vol] 247 10*3/uL Normal 150-450 [facility] Comment on above: Result Comment: PLAT ELETS REVIEWED Performed By: #### 1 0839-9, 11764-1, CBCA, CMP, 21252-0 #### [facility] ([id number]) [address] [place] [address] 35406 RBC COUNT 4.32 X10E12/L Normal 3.80-5.20 [facility] Comment on above: Performed By: #### 1 0839-9, 12904-4, CBCA, CMP, 28209-4 #### [facility] ([id number]) [address] [place] [address] 96141 WBC (Bld) [#/Vol] 13.3 10*3/uL High 4.0-11.0 [facility] Comment on above: Performed By: #### 1 0839-9, , CBCA, CMP, 87921-3 #### [facility] ([id number]) [address] [place] [address] 58386 COMPREHENSIVE METABOLIC PANE Scott 10-28-2023 Albumin [Mass/Vol] 4.0 g/dL Normal 3.2-5.3 [facility] Comment on above: Performed By: #### 1 39-9, , CBCA, CMP, 34019-5 #### [facility] ([id number]) [address] [place] [address] 59181 ALP [Catalytic activity/Vol] 76 U/L Normal 39-130 [facility] Comment on above: Performed By: #### 1 0839-9, 57674-4, CBCA, CMP, 53630-8 #### [facility] ([id number]) [address] [place] [address] 76530 ALT [Catalytic activity/Vol] 18 U/L Normal 0-31 [facility] Comment on above: Performed By: #### 1 0839-9, 23293-4, CBCA, CMP, 18193-5 #### [facility] ([id number]) [address] [place] [address] 11596 Anion gap [Moles/Vol] 3 mmol/L Low 5-15 [facility] Comment on above: Performed By: #### 1 39-9, , CBCA, CMP, 80626-8 #### [facility] ([id number]) [address] [place] [address] 38813 AST [Catalytic activity/Vol] 20 U/L Normal 0-41 [facility] Comment on above: Performed By: #### 1 39-9, , CBCA, CMP, 03517-7 #### [facility] ([id number]) [address] [place] [address] 09003 Bilirubin [Mass/Vol] 0.8 mg/dL Normal 0.3-1.2 [facility] Comment on above: Performed By: #### 1 39-9, , CBCA, CMP, 87331-7 #### [facility] ([id number]) [address] [place] [address] 00723 Calcium [Mass/Vol] 8.6 mg/dL Normal 8.5-10.5 [facility] Comment on above: Performed By: #### 1 39-9, , CBCA, CMP, 40612-9 #### [facility] ([id number]) [address] [place] [address] 94347 Chloride [Moles/Vol] 113 mmol/L High 98-109 [facility] Comment on above: Performed By: #### 1 39-9, , CBCA, CMP, 25659-9 #### [facility] ([id number]) [address] [place] [address] 88476 CO2 [Moles/Vol] 22 mmol/L Normal 22-32 [facility] Comment on above: Performed By: #### 1 0839-9, , CBCA, CMP, 25184-0 #### [facility] ([id number]) [address] [place] [address] 56001 Creatinine [Mass/Vol] 1.15 mg/dL High 0.40-1.00 [facility] Comment on above: Result Comment: METH OD TRACEABLE TO IDMS STANDARD Performed By: #### 1 39-9, , CBCA, CMP, 72240-8 #### [facility] ([id number]) [address] [place] [address] 83875 GFR/1.73 sq M.predicted among non-blacks MDRD (S/P/Bld) [Vol rate/Area] 61 mL/min/{1.73_m2} Normal >59 [facility] Comment on above: Result Comment: Reported eGFR is based on the CKD-EPI 2020 equation that does not use a race coefficient. Performed By: #### 1 089, , CBCA, CMP, 56318-2 #### [facility] ([id number]) [address] [place] [address] 71276 Glucose [Mass/Vol] 84 mg/dL Normal 65-99 [facility] Comment on above: Performed By: #### 1 9, , CBCA, CMP, 70206-9 #### [facility] ([id number]) [address] [place] [address] 98982 Potassium [Moles/Vol] 4.7 mmol/L Normal 3.5-5.0 [facility] Comment on above: Performed By: #### 1 9, , CBCA, CMP, 84001-4 #### [facility] ([id number]) [address] [place] [address] 60407 Protein [Mass/Vol] 6.9 g/dL Normal 6.0-8.0 [facility] Comment on above: Performed By: #### 1 0839-9, , CBCA, CMP, 37956-3 #### [facility] ([id number]) [address] [place] [address], [place] [address] Sodium [Moles/Vol] 138 mmol/L Normal 134-146 [facility] Comment on above: Performed By: #### 1 0839-9, 85359-3, CBCA, CMP, 65177-8 #### [facility] ([id number]) [address] [place] [address] Urea nitrogen [Mass/Vol] 12 mg/dL Normal 5-23 [facility] Comment on above: Performed By: #### 1 0839-9, 44392-0, CBCA, CMP, 04768-0 #### [facility] ([id number]) [address] [place] [address] CT BRAIN WO CONTon 3 CT BRAIN WO CONT CT BRAIN WO [...] Roblero MD on 10/28/2023 5:13 PM Normal [facility] Fibrin D-dimer DDU (PPP) [Ma ss/Vol]on 10-28-2023 D DIMER <150 Normal <255 [facility] Comment on above: Result Comment: Results <255 ng/mL DDU: The presence of a VTE can safely be excluded with a negative D-Dimer result and Wells score. A negative result doesn't exclude the possibility of DIC. The test be repeated along with other diagnostic tests if the patient's symptoms persist or worsen. [email or web address] Performed By: #### 1 0839-9, , CBCA, CMP, 07491-4 #### [facility] ([id number]) [address] [place] [address] MAGNESIUMon 10-28-2023 Magnesium [Mass/Vol] 2.0 mg/dL Normal 1.8-2.6 [facility] Comment on above: Performed By: #### 1 0839-9, , CBCA, CMP, 40546-8 #### [facility] ([id number]) [address] [place] [address] SARS/FLU A+B/RSV by NAAT/Mol ecularon 10-28-2023 SARS/FLU [...] operators who are performing tests using either [employer] or [employer] systems and is limited to laboratories that [...] repeat. Fact Sheet for Healthcare Providers: https://www.fda.gov/ media/070159/downloa d Fact Sheet for Patients: https://www.fda.gov/ media/450363/downloa d Normal [facility] Comment on above: Performed By: #### C OVFLR #### [facility] ([id number]) [address] [place] [address] 04180 TROPONIN Ion 10-28-2023 Troponin I.cardiac [Mass/Vol] ng/mL Normal 0.00-0.04 [facility] Comment on above: Performed By: #### 1 0839-9, 03139-5, CBCA, CMP, 50510-3 #### [facility] ([id number]) [address] [place] [address] 91328 URN MACROSCOPIC NURon 2022 BILIRUBIN OLIVIA Negative Normal NEG [facility] Comment on above: Performed By: #### N UM #### [facility] ([id number]) [address] [place] [address] 82404 BLOOD/HGB OLIVIA Trace Abnormal NEG [facility] Comment on above: Performed By: #### N UM #### [facility] ([id number]) [address] [place] [address] 12417 GLUCOSE OLIVIA Negative Normal NEG [facility] Comment on above: Performed By: #### N UM #### [facility] ([id number]) [address] [place] [address] 50733 KETONES OLIVIA Negative Normal NEG [facility] Comment on above: Performed By: #### N UM #### [facility] ([id number]) [address] [place] [address] 44087 LEUKOCYTE ESTERASE OLIVIA Negative Normal NEG [facility] Comment on above: Performed By: #### N UM #### [facility] ([id number]) [address] [place] [address] 31379 NITRITE OLIVIA Negative Normal NEG [facility] Comment on above: Performed By: #### N UM #### [facility] ([id number]) [address] [place] [address] 63587 PH OLIVIA 6.0 Normal 5.0-8.5 [facility] Comment on above: Performed By: #### N UM #### [facility] ([id number]) [address] [place] [address] 80055 PROTEIN OLIVIA Negative Normal NEG [facility] Comment on above: Performed By: #### N UM #### [facility] ([id number]) [address] [place] [address] 34192 SPECIFIC GRAVITY OLIVIA 1.010 Normal 1.003-1.035 [facility] Comment on above: Performed By: #### N UM #### [facility] ([id number]) [address] [place] [address] 30345 UROBILINOGEN OLIVIA 0.2 eu/dL Normal <1.1 [facility] Comment on above: Performed By: #### N UM #### [facility] ([id number]) [address] [place] [address] 35042 COVID/FLU/RSV RT-PCRon 12-24 SARS-CoV-2 (COVID-19) RNA KAREN+probe Ql (Unsp spec) Negative [facility] Other COVID/FLU/RSV RT-PCR Negative [facility] Other SARS-CoV-2 (COVID-19) RNA NA A+probe Ql (Resp)on 06-01-2022 SARS-CoV-2 (COVID-19) RNA KAREN+probe Ql (Unsp spec) Positive [facility] [place] Other REJI by IFAon 03-22-2022 Antinuclear Antibodies, IFA Negative Normal [facility] Comment on above: Result Comment: Nega tive <1:80 Borderline 1:80 Positive >1:80 ICAP nomenclature: AC-0 For more information about Hep-2 cell patterns use ANApatterns.org, the official website for the International Consensus on Antinuclear Antibody (REJI) Patterns (ICAP). Performed By: #### A NAIFA #### [facility] [address] [place] [address] Dr. Andre Haynes THYROID ANTIBODIESon Thyroglobulin Antibody <1.0 Normal 0.0-0.9 [facility] Comment on above: Result Comment: Thyr oglobulin Antibody measured by [employer] [place] Methodology Performed By: #### T HYRABS #### [facility] [address] [place] [address] Dr. Andre Haynes Thyroid Peroxidase (TPO) Ab 10 IU/mL Normal 0-34 [facility] Comment on above: Performed By: #### T HYRABS #### [facility] [address] [place] [address] Dr. Andre Haynes ANTISTREPTOLYSIN O AB (ASO)o n 03-19-2022 Antistreptolysin O Ab <20.0 Normal 0.0-200.0 [facility] Comment on above: Performed By: #### A SOAB #### [facility] [address] [place] [address] Dr. Andre Haynes RHEUMATOID FACTORon 03-19-20 22 RA Latex Turbid. <10.0 Normal <14.0 [facility] Comment on above: Performed By: #### R F #### [facility] [address] [place] [address] Dr. Andre Haynes CBC AUTO DIFFon 03-18-2022 BASO # 0.0 103/ul Normal 0.0-0.1 [facility] Comment on above: Performed By: #### C BC #### [facility] [address] [address] [address] Andre Haynes Basophils/100 WBC (Bld) 0.3 % Normal 0.2-2.0 [facility] Comment on above: Performed By: #### C BC #### [facility] [address] [address] [address] Andre Haynes EO # 0.4 103/ul Normal 0.0-0.7 [facility] Comment on above: Performed By: #### C BC #### [facility] [address] [place] [address] Dr. Andre Haynes Eosinophils/100 WBC (Bld) 4.0 % Normal 0.9-7.0 [facility] Comment on above: Performed By: #### C BC #### [facility] [address] [place] [address] Dr. Andre Haynes Erythrocyte distribution width (RBC) [Ratio] 12.5 % Normal 11.0-15.0 [facility] Comment on above: Performed By: #### C BC #### [facility] [address] [place] [address] Dr. Andre Haynes Hematocrit (Bld) [Volume fraction] 41.9 % Normal 36.0-48.0 [facility] Comment on above: Performed By: #### C BC #### [facility] [address] [place] [address] Dr. Andre Haynes Hemoglobin (Bld) [Mass/Vol] 14.4 g/dL Normal 12.0-16.0 [facility] Comment on above: Performed By: #### C BC #### [facility] [address] [place] [address] Dr. Andre Haynes IG # 0.04 10e3/ul Critically high 0.00-0.03 [facility] Comment on above: Performed By: #### C BC #### [facility] [address] [place] [address] Dr. Andre Haynes IG % 0.4 % Normal 0.0-0.5 [facility] Comment on above: Performed By: #### C BC #### [facility] [address] [place] [address] Dr. Andre Haynes LYMPH # 2.6 103/ul Normal 1.2-3.8 [facility] Comment on above: Performed By: #### C BC #### [facility] [address] [place] [address] Dr. Andre Haynes Lymphocytes/100 WBC (Bld) 29.2 % Normal 20.5-60.0 [facility] Comment on above: Performed By: #### C BC #### [facility] [address] [place] [address] Dr. Andre Haynes MANUAL DIFF REQ NO Normal [facility] Comment on above: Performed By: #### C BC #### [facility] [address] [place] [address] Dr. Andre Haynes MCH (RBC) [Entitic mass] 33.3 pg Normal 26.7-34.0 [facility] Comment on above: Performed By: #### C BC #### [facility] [address] [place] [address] Dr. Andre Haynes MCHC (RBC) [Mass/Vol] 34.4 g/dL Normal 29.9-35.2 [facility] Comment on above: Performed By: #### C BC #### [facility] [address] [place] [address] Dr. Andre Haynes MCV (RBC) [Entitic vol] 97.0 fL Normal 81.0-99.0 [facility] Comment on above: Performed By: #### C BC #### [facility] [address] [place] [address] Dr. Andre Haynes MONO # 0.6 103/ul Normal 0.3-0.8 [facility] Comment on above: Performed By: #### C BC #### [facility] [address] [place] [address] Dr. Andre Haynes Monocytes/100 WBC (Bld) 6.4 % Normal 1.7-12.0 [facility] Comment on above: Performed By: #### C BC #### [facility] [address] [place] [address] Dr. Andre Haynes NEUT # 5.4 103/ul Normal 1.4-6.5 [facility] Comment on above: Performed By: #### C BC #### [facility] [address] [place] [address] Dr. Andre Haynes Neutrophils/100 WBC (Bld) 59.7 % Normal 43.0-75.0 [facility] Comment on above: Performed By: #### C BC #### [facility] [address] [place] [address] Dr. Andre Haynes Platelet mean volume (Bld) [Entitic vol] 9.9 fL Normal 9.5-13.5 [facility] Comment on above: Performed By: #### C BC #### [facility] [address] [place] [address] Dr. Andre Haynes PLT 217 103/ul Normal 150-450 [facility] Comment on above: Performed By: #### C BC #### [facility] [address] [place] [address] Dr. Andre Haynes RBC 4.32 106/ul Normal 4.20-5.40 [facility] Comment on above: Performed By: #### C BC #### [facility] [address] [place] [address] Dr. Andre Haynes WBC 9.0 103/ul Normal 4.0-11.0 [facility] Comment on above: Performed By: #### C BC #### [facility] [address] [place] [address] Dr. Andre Haynes CRPon 03-18-2022 CRP [Mass/Vol] mg/L Normal <=1.0 [facility] Comment on above: Performed By: #### R F #### [facility] [address] [place] [address] Dr. Andre Haynes FERRITINon 03-18-2022 Ferritin [Mass/Vol] 35.0 ng/mL Normal 6.2-137.0 [facility] Comment on above: Performed By: #### R F #### [facility] [address] [place] [address] Dr. Andre Haynes FREE T3on 03-18-2022 FREE T3 3.61 pg/mlL Normal 2.18-3.98 [facility] Comment on above: Performed By: #### R F #### [facility] [address] [place] [address] Dr. Andre Haynes FREE T4on 03-18-2022 Free T4 [Mass/Vol] 1.00 ng/dL Normal 0.76-1.46 [facility] Comment on above: Performed By: #### R F #### [facility] [address] [place] [address] Dr. Andre Haynes IRONon 03-18-2022 Iron [Mass/Vol] 87.0 ug/dL Normal 50.0-170.0 [facility] Comment on above: Performed By: #### R F #### [facility] [address] [place] [address] Dr. Andre Haynes LIVER PROFILEon 03-18-2022 Albumin [Mass/Vol] 3.7 g/dL Normal 3.4-5.0 [facility] Comment on above: Performed By: #### R F #### [facility] [address] [place] [address] Dr. Andre Haynes Albumin/Globulin [Mass ratio] 1.3 {ratio} Normal [facility] Comment on above: Performed By: #### R F #### [facility] [address] [place] [address] Dr. Andre Haynes ALP [Catalytic activity/Vol] 74 U/L Normal 46-116 [facility] Comment on above: Performed By: #### R F #### [facility] [address] [place] [address] Dr. Andre Haynes ALT [Catalytic activity/Vol] 24 U/L Normal 14-59 [facility] Comment on above: Performed By: #### R F #### [facility] [address] [place] [address] Dr. Andre Haynes AST [Catalytic activity/Vol] 13 U/L Critically low 15-37 [facility] Comment on above: Performed By: #### R F #### [facility] [address] [address] [address] Andre Haynes BILI, CONJUGATED 0.1 mg/dL Normal 0.0-0.2 [facility] Comment on above: Performed By: #### R F #### [facility] [address] [address] [address] Andre Haynes Bilirubin [Mass/Vol] 0.3 mg/dL Normal 0.2-1.0 [facility] Comment on above: Performed By: #### R F #### [facility] [address] [place] [address] Dr. Andre Haynes Globulin (S) [Mass/Vol] 2.8 g/dL Normal [facility] Comment on above: Performed By: #### R F #### [facility] [address] [place] [address] Dr. Andre Haynes Protein [Mass/Vol] 6.5 g/dL Normal 6.4-8.2 [facility] Comment on above: Performed By: #### R F #### [facility] [address] [place] [address] Dr. Andre Haynes PROF CHEM 8 (BAS METB)on Anion gap [Moles/Vol] 12.0 mmol/L Normal [facility] Comment on above: Performed By: #### F T3, LIVER, BMP, TSH, URIC, CRP #### [facility] [address] [place] [address] Dr. Andre Haynes Calcium [Mass/Vol] 8.8 mg/dL Normal 8.5-10.1 [facility] Comment on above: Performed By: #### F T3, LIVER, BMP, TSH, URIC, CRP #### [facility] [address] [place] [address] Dr. Andre Haynes Chloride [Moles/Vol] 104 mmol/L Normal 98-107 [facility] Comment on above: Performed By: #### F T3, LIVER, BMP, TSH, URIC, CRP #### [facility] [address] [address] [address] Andre Haynes CO2 [Moles/Vol] 25.8 mmol/L Normal 21.0-32.0 [facility] Comment on above: Performed By: #### F T3, LIVER, BMP, TSH, URIC, CRP #### [facility] [address] [address] [address] Andre Haynes Creatinine [Mass/Vol] 1.05 mg/dL Critically high 0.55-1.02 [facility] Comment on above: Performed By: #### F T3, LIVER, BMP, TSH, URIC, CRP #### [facility] [address] [place] [address] Dr. Andre Haynes EGFR-AF NICARAGUAN >60 Normal >=60 [facility] Comment on above: Performed By: #### F T3, LIVER, BMP, TSH, URIC, CRP #### [facility] [address] [address] [address] Andre Haynes EGFR-NON AF NICARAGUAN 58 mL/min/1.73m2 Critically low >=60 [facility] Comment on above: Performed By: #### F T3, LIVER, BMP, TSH, URIC, CRP #### [facility] [address] [place] [address] Dr. Andre Haynes Glucose [Mass/Vol] 85 mg/dL Normal 74-106 [facility] Comment on above: Performed By: #### F T3, LIVER, BMP, TSH, URIC, CRP #### [facility] [address] [place] [address] Dr. Andre Haynes Potassium [Moles/Vol] 3.8 mmol/L Normal 3.5-5.1 [facility] Comment on above: Performed By: #### F T3, LIVER, BMP, TSH, URIC, CRP #### [facility] [address] [place] [address] Dr. Andre Haynes Sodium [Moles/Vol] 138 mmol/L Normal 136-145 [facility] Comment on above: Performed By: #### F T3, LIVER, BMP, TSH, URIC, CRP #### [facility] [address] [place] [address] Dr. Andre Haynes Urea nitrogen [Mass/Vol] 11.0 mg/dL Normal 7.0-18.0 [facility] Comment on above: Performed By: #### F T3, LIVER, BMP, TSH, URIC, CRP #### [facility] [address] [place] [address] Dr. Andre Haynes Urea nitrogen/Creatinine [Mass ratio] 10.5 mg/mg Normal [facility] Comment on above: Performed By: #### F T3, LIVER, BMP, TSH, URIC, CRP #### [facility] [address] [place] [address] Dr. Andre Haynes PROTIMEon 03-18-2022 INR Coag (PPP) [Relative time] 1.01 {INR} Normal [facility] Comment on above: Performed By: #### P TT, PT #### [facility] [address] [place] [address] Dr. Andre Haynes INR GUIDELINES SEE BELOW Normal [facility] Comment on above: Result Comment: BRICE RED INR: 2.0 - 3.0 CONDITIONS NOT LISTED BELOW 2.5 - 3.5 FOR PROSTHETIC HEART VALVE REPLACEMENT 2.5 - 3.5 RECURRENT THROMBOSIS Performed By: #### P TT, PT #### [facility] [address] [place] [address] Dr. Andre Haynes PT Coag (PPP) [Time] 10.9 s Normal 9.0-11.6 [facility] Comment on above: Performed By: #### P TT, PT #### [facility] [address] [place] [address] Dr. Andre Haynes PTTon 03-18-2022 aPTT Coag (Bld) [Time] 27.2 s Normal 22.3-36.2 [facility] Comment on above: Performed By: #### P TT, PT #### [facility] [address] [place] [address] Dr. Andre Haynes SED RATE formerly [facility] 2021 SED RATE 1 mm/hr Normal <=20 [facility] Comment on above: Performed By: #### A SOAB #### [facility] [address] [place] [address] Dr. Andre Haynes TSHon 03-18-2022 TSH 2.218 uIU/mL Normal 0.358-3.740 [facility] Comment on above: Performed By: #### R F #### [facility] [address] [place] [address] Dr. Andre Haynes TSH RANGE SEE BELOW Normal [facility] Comment on above: Result Comment: <0.3 4 UIU/ml HYPERTHYROID 0.34-5.60 UIU/ml EUTHYROID >5.60 UIU/ml HYPOTHYROID Performed By: #### R F #### [facility] [address] [place] [address] Dr. Andre Haynes UA (CLEAN/CATCH) ELECTRONICS ENGINEER/MICRO I F IND.on 03-18-2022 Bilirubin Ql (U) Negative Normal NEGATIVE [facility] Comment on above: Performed By: #### R F #### [facility] [address] [place] [address] Dr. Andre Haynes Clarity (U) CLEAR Normal CLEAR [facility] Comment on above: Performed By: #### R F #### [facility] [address] [place] [address] Dr. Andre Haynes Color (U) YELLOW Normal YELLOW [facility] Comment on above: Performed By: #### R F #### [facility] [address] [place] [address] Dr. Andre Haynes Glucose Ql (U) Negative Normal NEGATIVE [facility] Comment on above: Performed By: #### R F #### [facility] [address] [place] [address] Dr. Andre Haynes Hemoglobin Ql (U) Negative Normal NEGATIVE [facility] Comment on above: Performed By: #### R F #### [facility] [address] [place] [address] Dr. Andre Haynes Ketones Ql (U) Negative Normal NEGATIVE [facility] Comment on above: Performed By: #### R F #### [facility] [address] [address] [address] Andre Haynes LEUKOCYTES Negative Normal NEGATIVE [facility] Comment on above: Performed By: #### R F #### [facility] [address] [place] [address] Dr. Andre Haynes Nitrite Ql (U) Negative Normal NEGATIVE [facility] Comment on above: Performed By: #### R F #### [facility] [address] [address] [address] Andre Haynes pH (U) 6.0 [pH] Normal 5-9 [facility] Comment on above: Performed By: #### R F #### [facility] [address] [place] [address] Dr. Andre Haynes SPEC GRAVITY 1.020 Normal 1.005-<=1.025 [facility] Comment on above: Performed By: #### R F #### [facility] [address] [place] [address] Dr. Andre Haynes UA PROTEIN Negative Normal NEGATIVE/ TRACE [facility] Comment on above: Performed By: #### R F #### [facility] [address] [place] [address] Dr. Andre Haynes UR MICRO IND MICROSCOPIC ALREADY ORDERED Normal [facility] Comment on above: Performed By: #### R F #### [facility] [address] [place] [address] Dr. Andre Haynes Urobilinogen Qn (U) 0.2 {Rafal'U}/dL Normal 0.2 - 1. 0 [facility] Comment on above: Performed By: #### R F #### [facility] [address] [place] [address] Dr. Andre Haynes URIC ACID SERUMon 03-18-2022 Urate [Mass/Vol] 3.9 mg/dL Normal 2.6-6.0 [facility] Comment on above: Performed By: #### R F #### [facility] [address] [place] [address] Dr. Andre Haynes URINE MICROSCOPIC ONLYon BACTERIA NONE SEEN Normal NONE SEEN [facility] Comment on above: Performed By: #### R F #### [facility] [address] [place] [address] Dr. Andre Haynes Bacteria identified Cx Nom (U) NOT INDICATED Normal [facility] Comment on above: Performed By: #### R F #### [facility] [address] [place] [address] Dr. Andre Haynes CAST NONE SEEN Normal NONE SEEN [facility] Comment on above: Performed By: #### R F #### [facility] [address] [place] [address] Dr. Andre Haynes Crystals LM Nom (Urine sed) NONE SEEN Normal NONE SEEN [facility] Comment on above: Performed By: #### R F #### [facility] [address] [place] [address] Dr. Andre Haynes Epithelial cells LM Ql (Urine sed) FEW Abnormal NONE SEEN /RARE [facility] Comment on above: Performed By: #### R F #### [facility] [address] [place] [address] Dr. Andre Haynes MUCOUS NONE SEEN Normal NONE SEEN [facility] Comment on above: Performed By: #### R F #### [facility] [address] [place] [address] Dr. Andre Haynes RBC 0-2 Normal 0-2 [facility] Comment on above: Performed By: #### R F #### [facility] [address] [place] [address] Dr. Andre Haynes WBC NONE SEEN Normal NONE SEEN [facility] Comment on above: Performed By: #### R F #### [facility] [address] [place] [address] Dr. Andre Haynes ER URINE PROFILEon 2 Bilirubin Ql (U) Negative Normal NEGATIVE [facility] Comment on above: Performed By: #### E RUR #### [facility] [address] [place] [address] Dr. Andre Haynes Clarity (U) CLEAR Normal CLEAR [facility] Comment on above: Performed By: #### E RUR #### [facility] [address] [place] [address] Dr. Andre Haynes Color (U) LT. YELLOW Normal YELLOW [facility] Comment on above: Performed By: #### E RUR #### [facility] [address] [place] [address] Dr. Andre SHAFER A micrscopic examination will be performed if indicated. Normal [facility] Comment on above: Performed By: #### E RUR #### [facility] [address] [place] [address] Dr. Andre Haynes Glucose Ql (U) Negative Normal NEGATIVE [facility] Comment on above: Performed By: #### E RUR #### [facility] [address] [place] [address] Dr. Andre Haynes Hemoglobin Ql (U) Negative Normal NEGATIVE [facility] Comment on above: Performed By: #### E RUR #### [facility] [address] [place] [address] Dr. Andre Haynes Ketones Ql (U) Negative Normal NEGATIVE [facility] Comment on above: Performed By: #### E RUR #### [facility] [address] [place] [address] Dr. Andre Haynes LEUKOCYTES Negative Normal NEGATIVE [facility] Comment on above: Performed By: #### E RUR #### [facility] [address] [place] [address] Dr. Andre Haynes Nitrite Ql (U) Negative Normal NEGATIVE [facility] Comment on above: Performed By: #### E RUR #### [facility] [address] [place] [address] Dr. Andre Haynes pH (U) 6.0 [pH] Normal 5-9 [facility] Comment on above: Performed By: #### E RUR #### [facility] [address] [place] [address] Dr. Andre Haynes SPEC GRAVITY <=1.005 Abnormal 1.005-<=1.025 [facility] Comment on above: Performed By: #### E RUR #### [facility] [address] [place] [address] Dr. Andre Haynes UA PROTEIN Negative Normal NEGATIVE/ TRACE [facility] Comment on above: Performed By: #### E RUR #### [facility] [address] [place] [address] Dr. Andre Haynes UR MICRO IND NOT INDICATED Normal [facility] Comment on above: Performed By: #### E RUR #### [facility] [address] [place] [address] Dr. Andre Haynes Urobilinogen Qn (U) 0.2 {Rafal'U}/dL Normal 0.2 - 1. 0 [facility] Comment on above: Performed By: #### E RUR #### [facility] [address] [place] [address] Dr. Andre Haynes XR LSPINE MIN 4 [...] TESS BANGURA Date: 2021-11-19 07:38 Normal [facility] OUTSIDE CONSULT MSKon 2020 OUTSIDE CONSULT MSK [facility] Department of Radiology [address] [place] [id number] Patient Name: SIMONA LO : 1980 Sex: F Age: Race: White Pt. Location: [facility] Patient Status: Ordered Date: 02/05/2021 3:35:00 PM Completed Date: 02/05/2021 03:51 PM Requesting Provider: OLE TUCKER Attending Provider: Report Copy To: Signs & Symptoms: pt has persistent rt sided pectoralis pain and weakness. Assess pectoralis tendon for injury and/or tear History: Mri of rt shoulder from [facility] dated 11/05/20. Over read requested by Dr Tucker Comments: Exam: OUTSIDE CONSULT MSK OUTSIDE CONSULT MSK 02/05/2021 3:51 PM OUTSIDE STUDY: TECHNIQUE: Outside images of the right shoulder obtained from [facility] dated November 05, 2020. Image review [...] interpretation. Electronically signed: Jonathan Shabazz. Transcribed by: [email or web address], User Resident: JONATHAN SHABAZZ Electronically Signed by: JONATHAN SHABAZZ @ 02/13/2021 12:32 PM I personally read this/these film(s) with this resident Normal The [facility] Vital Signs Date Time Vital Sign Value Performing Clinician Facility 02-24-2024 09:23-0400 Body height 160.02 cm [facility] 02-24-2024 09:23-0400 Body mass index (BMI) [Ratio] 34.7 kg/m2 [facility] 02-24-2024 09:23-0400 Body weight 89 kg [facility] 01-01-2024 14:16-0500 Body height 160.02 cm [facility] 01-01-2024 14:16-0500 Body mass index (BMI) [Ratio] 31.5 kg/m2 [facility] 01-01-2024 14:16-0500 Body temperature 98.3 [degF] [facility] 01-01-2024 14:16-0500 Body weight 80.73 kg [facility] 01-01-2024 14:16-0500 Heart rate 99 /min [facility] 01-01-2024 14:16-0500 Respiratory rate 18 /min [facility] 01-01-2024 14:16-0500 SaO2% (BldA) [Mass fraction] 98 % [facility] 12-24-2022 09:25-0500 Body height 160.02 cm Aicha Shankar Other [facility] [place] Other 12-24-2022 09:25-0500 Body mass index (BMI) [Ratio] 29.58 kg/m2 Aicha Shank[facility] Other [facility] Other 12-24-2022 09:25-0500 Body temperature 98.8 [degF] Aicha Shankar Other [facility] Other 12-24-2022 09:25-0500 Body weight 75.75 kg Aicha Shankar Other [facility] Other 12-24-2022 09:25-0500 Respiratory rate 18 /min Aicha Shankar Other [facility] Other 12-24-2022 09:25-0500 SaO2% (BldA) [Mass fraction] 95 % Aicha Shankar Other [facility] Other 06-01-2022 18:20-0400 Body height 160.02 cm Aicha Shankar Other [facility] Other 06-01-2022 18:20-0400 Body mass index (BMI) [Ratio] 27.45 kg/m2 Aicha Shankar Other [facility] Other 06-01-2022 18:20-0400 Body temperature 99.5 [degF] Aicha Shankar Other [facility] Other 06-01-2022 18:20-0400 Body weight 70.31 kg Aicha Shankar Other [facility] Other 06-01-2022 18:20-0400 Respiratory rate 18 /min Aicha Shankar Other [facility] Other 06-01-2022 18:20-0400 SaO2% (BldA) [Mass fraction] 98 % Aicha Shankar Other [facility] Other Encounters Encounter Date Encounter Type Care Provider Facility Start: 02-24-2024 End: 02-24-2024 [facility] Work Phone: Start: 02-24-2024 End: 02-24-2024 Patient encounter procedure [facility] Physician [facility] Neurosurgery Work Phone: Start: 01-30-2024 End: 01-30-2024 ambulatory AINSLEYAnita DUFFARMANDZ Not Available Start: 01-18-2024 End: 01-19-2024 ambulatory SWETA PORTILLO Not Available Start: 01-12-2024 End: 01-12-2024 ambulatory AINSLEY SHERINHOLZ Not Available Start: 01-01-2024 End: 01-01-2024 Patient encounter procedure [facility] Physician [facility] Work Phone: Start: 12-22-2023 End: 12-22-2023 ambulatory [facility] Fin[facility] Comment on above: Encounter for survei llance of injectable contraceptive (Primary Dx) Start: 11-17-2023 End: 11-17-2023 ambulatory AINSLEY EDIFlorentinoARMANDZ Not Available Start: 11-15-2023 Telephone encounter Sharri Palma [facility] Physicians Obstetrics/Gynecology Start: 10-28-2023 End: 10-29-2023 Emergency department patient visit [facility] Start: 10-28-2023 End: 10-29-2023 Emergency department patient visit [facility] Start: 10-06-2023 End: 10-06-2023 ambulatory SHAIKH BETO Not Available Start: 12-24-2022 End: 12-24-2022 ambulatory [facility] Other Start: 12-24-2022 Office outpatient vi sit 25 minutes Aicha Shankar [facility] Start: 06-01-2022 End: 06-01-2022 ambulatory Aicha Shankar [facility] Other Start: 06-01-2022 Office outpatient ne w 30 minutes Aichashirlene Shankar [facility] Start: 03-18-2022 End: 03-19-2022 ambulatory FADI SELLERS Facility:[facility] Start: 01-29-2022 End: 01-29-2022 ambulatory FADI SELLERS Facility:[facility] Start: 11-24-2021 End: 11-27-2021 ambulatory FADI SELLERS Facility:[facility] Start: 11-18-2021 End: 11-19-2021 ambulatory FADI SELLERS Facility:[facility] Start: 10-17-2021 End: 10-17-[address] RANDOLPH CADET Facility:[facility] Start: 01-06-2021 End: 01-21-2021 ambulatory PHYSICIAN UNKNOWN Facility:[facility] Procedures Date Procedure Procedure Detail Performing Clinician Start: 04-26-2023 Adult depression scr eening assessment Sharri Gipson Start: 04-15-2023 Mammography Sharri Gipson Start: 03-24-2022 Microscopic observat ion [Identifier] in Cervix by Cyto stain Sharri Gipson Plan of Treatment Date Care Activity Detail Author Start: 03-24-2025 Screening for malign ant neoplasm of cervix Pap Smear [facility] Start: 10-28-2024 Tobacco Screening Tobacco Screening [facility] Start: 04-26-2024 Adult BMI Follow Up Plan Adult BMI Follow Up Plan [facility] Start: 04-26-2024 Adult BMI Screening Adult BMI Screen ing [facility] Start: 04-26-2024 Depression Screening Depression Scre ening [facility] Start: 04-15-2024 Screening for malign ant neoplasm of breast Mammogram [facility] Start: 03-13-2024 End: 03-13-2024 ambulatory 03/13/2024 11:45 AM EDT Nurse Injection [facility] [address] [place] [address] [facility] Start: 12-21-2023 End: 12-21-2023 ambulatory 12/21/2023 3:30 PM EST Nurse Injection [facility] [address] [place] [address] [facility] Start: 07-01-2023 COVID-19 Vaccine ( season) COVID-19 Vaccine ( season) [facility] Start: 07-01-2023 Influenza vaccination Influenza Vacc ine [facility] Start: 1999 DTaP,Tdap and Td Vaccines (1 - Tdap) DTaP,Tdap and Td Vaccines (1 - Tdap) [facility] Start: 1980 Tobacco Counseling Tobacco Counselin g [facility] XR Lumbar spine Views [facility] Immunizations Immunization Date Immunization Notes Care Provider Fa cility 09-03-2022 influenza virus vaccine, unspecified formulation Sharri Gipson [facility] Payers Date Payer Category Payer Private Health Insurance [facility] [id number] 2022-Present [phone] [address] [address] [place] [address] [id number] 2022 Unknown [id number] 1980 Unknown [id number] 1980 Unknown [id number] 2.16.840.1.448425.3.579 .2.593 1980 Unknown [id number] 2.16.840.1.315720.3.579 .2.593 1980 Unknown [id number] 2.16.840.1.516639.3.579 .2.593 1980 Unknown [id number] 2.16.840.1.598568.3.579 .2.593 1980 Unknown [id number] 2.16.840.1.652436.3.579 .2.593 1980 Unknown [id number] 2.16.840.1.350755.3.579 .2.1286 1980 Unknown [id number] 2.16.840.1.801218.3.579 .2.1286 1980 Unknown [id number] 2.16.840.1.605748.3.579 .2.6 1980 Unknown [id number] 2.16.840.1.120188.3.579 .2.1286 1980 Unknown [id number] 2.16.840.1.698366.3.579 .2.9 1980 Unknown [id number] 2.16.840.1.206502.3.579 .2.9 1980 Unknown [id number] 2.16.840.1.219836.3.579 .2.9 1980 Unknown [id number] 2.16.840.1.501473.3.579 .2.9 1980 Unknown [id number] 2.16.840.1.532875.3.579 .2.9 1980 Unknown [id number] 2.16.840.1.757704.3.579 .2.1259 1959 Unknown [id number] Worker's Compensation [id number] Social History Date Type Detail Facility Start: 12-10-2020 End: 10-28-2023 Sex Assigned At [facility]ly [facility] Kelly [facility] [employer] Other Start[facility] 10-31-2000 [facility] Start: 10-31-2000 History of tobacco use Cigarette Smo ker [facility] Start: 12-10-2020 End: 04-12-2023 Cigarettes smoked current (pack per day) - Reported 0.5 [facility] Start: 04-12-2023 Tobacco use and exposure Smokeless tobacco non-user [facility] Start: 10-28-2023 Alcohol intake 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 documented in this encounter [employer] 11-15-2023 Miscellaneous Notes Patient called the office [...] understood. SAURABH Camacho documented in this encounter [facility]-15-2023 Telephone encounter Note Patient called the [...] with recommendations for the patient. Thank you. [facility] 11-15-2023 Telephone encounter Note If [...] come in for an appt. Thank you. [facility] 11-15-2023 Telephone encounter Note LVM for patient to return [facility]23 Telephone encounter Note Pt called back and informed her of this information. Pt verbalized she understood. [facility]URABH [facility]acho [facility] 10-28-2023 Note XR CHEST 2 VWS Procedure: Chest x-ray performed Number of views:2 History:Syncope Comparison:10/03/2010 Findings: The heart and lungs show no acute findings, and the mediastinum and meliza are grossly negative . Impression: 1. No acute change. Finalized by Ronni Roblero MD on 10/28/2023 7:04 PM [facility] 12-24-2022 Evaluation note Encounter Date Diagnosis Assessment [...] as decrease in urine, dry mouth, etc [facility] Other 08-02-2022 Evaluation note* Encounter Date Diagnosis [...] action if you have chronic health conditions. [facility] Other Evaluation note* Diagnosis Encounter for surveillance of injectable contraceptive- Primary documented in this encounter [facility] noteNo assessment information available [facility] Work Phone: Hisndpq general Narrative - Reported* Type Description Date Medical History Anxiety Surgical History C section x 3 Surgical History rotator cuff Surgical History cholecystectomy Hospitalization History [facility] Other [facility] general Narrative - Reported* Type Description Date Medical History Anxiety Medical History Neuropathy Surgical History C section x 3 Surgical History rotator cuff Surgical History cholecystectomy Surgical History hip decompression left Hospitalization History Child [facility] Other InstructionsNot on filedocumented in this encounter [facility] SystemInstructionsNot on filedocumented in this encounter [facility] Summary Purpose Family History Relationship Condition Age at Onset Recorded Date/T nusrat father Diabetes mellitus Unknown Heart disease Unknown Advance Directives Advance Directive Response Recorded Date/ Time Advance Directives No December 31 3:00pm Chief Complaint and Reason for Visit Chief Complaint Right leg pain w/o i njury Ref Sweta Chester, lumbar radiculopathy Additional Source Comments INFORMATION SOURCE (unrecogn ized section and content) DATE CREATED AUTHOR 02/18/2021 [facility] DATE CREATED AUTHOR AUTHOR'S ORGANIZ ATION 06/01/2022 [facility] DATE CREATED AUTHOR AUTHOR'S ORGANIZ ATION 10/30/2023 [facility] DATE CREATED AUTHOR AUTHOR'S ORGANIZ ATION 12/30/2023 [facility] DATE CREATED AUTHOR AUTHOR'S ORGANIZ ATION 01/31/2024 [facility] EPIC REASON FOR VISIT (unrecogniz ed section and content) Reason Comments Contraception Pt is here for DEPO Care Teams (unrecognized sec tion and content) Vaccine Customer Representative Relationship Specialty Start Date End Date Ainsley Sellers, CLINIC CHARGE NURSE-OCCASIONAL BABYSITTER [address] [place] [id number] PCP - General Nurse Practitioner 03/30/22 Vaccine Customer Representative Relationship Specialty Start Date End Date Ainsley Sellers, CLINIC CHARGE NURSE-OCCASIONAL BABYSITTER [address] [place] [address] PCP - General Nurse Practitioner 03/30/22 Team Status: Active Member Role Status Dates Ainsley Sellers Primary Care Provider Active Team Status: Inactive Member Role Status Dates ALEXIA Lockett Attending Provider Active S tart: January 01, 2024 End: January 01, 2024 Ainsley Sellers Primary Care Provider Active Sta rt: January 01, 2024 End: January 01, 2024 Team Status: Inactive Member Role Status Dates Ainsley Sellers Primary Care Provider Active Sta rt: February 24, 2024 End: February 24, 2024 ALEXIA Carney Active Star t: February 24, 2024 End: February 24, 2024 Say Cutler MD Attending Provider Active Star t: February 24, 2024 End: February 24, 2024 Goals (unrecognized section and content) Goals may be documented in a n alternate section FOR RECORDS PERTAINING TO PATIENTS WHO ARE [...] BE BASED ON THE PRIMARY CLINICAL RECORDS. [employer] [facility]. provides no warranty or guarantee of the accuracy or completeness of information in this document.
== END 2024-02-28 12:42 | disposition home or self-care (01) ==
LOC: PM 12:42
PROVIDERS: PCP Internal Medicine; Visit Provider Anesthesiology Pain Medicine
DX: M54.16 Radiculopathy, lumbar region (principal)
CPT/HCPCS: G0463

== ENCOUNTER 2024-03-21 13:08 | Outpatient (OUT) | payer OTHER, SELFPAY ==
--- NOTE | 2024-03-21 13:10 | P.CN_ITS ---
Consult Note: HPI Data of Consult Patient: known to practice within the last 3 years Requesting Physician: Kyung Shields NP Primary Care Provider: Shaikh Monty MD Consult Narrative Reason for consult: f/u Narrative: Simona kunz pleasant 43 year old female presents for evaluation and management of chronic low back pain with radiculopathy. Worsening of her pain and radicular symptoms 2 weeks ago, patient reporting constant severe pain 9/10 throbbing ache sharp pain radiating into right hip and leg. Patient engaged in PT working towards surgical intervention with Dr Cutler, upcoming appointment 04/05. Patient denies falls, loss of bowel or bladder. Cannot take NSAIDs as she has 1 kidney. Currently on baclofen 10mg BID, gabapentin 600mg BID, trazadone 50mg HS and PRN xanax. FRANKY 82% today. cc:: CC: Kyung Shields NP Review of Systems ROS Status of ROS 10 or more systems reviewed and unremark able except as noted in history and below Musculoskeletal Reports: back pain and extremity pain PFSH PFSH Medical History Anxiety ?F41.9 - Anxiety disorder, unspecified (ICD-10) H/O kidney disease ?Z87.448 - Personal history of other diseases of urinary system (ICD-10) Smoker ?F17.200 - Nicotine dependence, unspecified, uncomplicated (ICD-10) Surgical History Status post hip surgery ?Z98.890 - Other specified postprocedural states (ICD-10) H/O arthroscopy of shoulder ?Z98.890 - Other specified postprocedural states (ICD-10) H/O: ?Z98.891 - History of uterine scar from previous surgery (ICD-10) Social History Smoking status: Current every day smoker Meds Home Medications and Allergies Home Medications ?Medication ?Instructions ?Recorded ?Confirmed ?Type alprazolam 0.25 mg tablet 0.25 mg PO DAILY 01/31/24 02/14/24 History baclofen 10 mg tablet 10 mg PO BID 01/31/24 02/14/24 History fluoxetine 40 mg capsule 40 mg PO DAILY 01/31/24 02/14/24 History gabapentin 300 mg capsule 300 mg PO TID 01/31/24 02/14/24 History trazodone 50 mg tablet 50 mg PO DAILY 01/31/24 02/14/24 History Allergies Allergy/AdvReac Type Severity Reaction Status Date / Time diphenhydramine Allergy Mild Hives Verified 02/14/24 08:57 [From Benadryl] codeine Allergy Unknown Verified 02/14/24 08:57 Exam Constitutional Documenting provider has reviewed patient's vital signs: yes Common normals: no apparent distress, oriented x3, healthy appearing, alert and well nourished General appearance: cooperative HENMT Common normals: normocephalic, hearing grossly normal bilaterally and moist oral mucous membranes Head and scalp: normocephalic Eye Common normals: PERRL Pupil: PERRL Neck & C-Spine Common normals: full ROM General: normal visual inspection Chest Common normals: inspection of chest normal Respiratory Common normals: normal respiratory effort, no retractions and no use of accessory muscles Back & Pelvis Lumbar spine/lower back: ROM limited, pain with ROM and straight leg raise positive right Other: significant pain on exam, limited ROM decreased sensation following right L4,5 and S1 pattern strength 3/5 in RLE, 5/5 in LLE Neuro Common normals: oriented x3, CN's II-XII intact bilaterally, moves all extremities, no focal motor deficits, no sensory deficits noted and deep tendon reflexes 2+ bilaterally Sensorium/orientation: alert Gait (neuro): antalgic Motor exam: no movement abnormalities noted and strength abnormal Psych Common normals: mental status grossly normal, thought process normal, cooperative, affect normal, speech normal and activity/motor behavior normal Speech: normal speech Thought process: normal thought process Results Additional Findings Additional findings: If on a controlled substance or opioids, I have checked an [place] report on this patient and there are no aberrancies noted in the prescribing history.??If on a controlled substance or opioid a drug screen was completed and reviewed within the last year, and if there has not been a drug screen completed we ordered one today to monitor higher risk, state monitored pain medication use. As part of providing excellent, safe, comprehensive care, the following was completed at our patient's visit: 1. A medication reconciliation and review to ensure accurate knowledge of current/active medications, including asking our patients to inform us about any [id number] medications or herbal remedies/nutritional supplements/alternative remedies. 2. A review to specifically ensure our patients have had annual screening for screening for depression, screening for tobacco use, and screening for unhealthy alcohol use. For concerning screenings had a discussion with the patient, provided patient education, and recommended follow-up with primary care provider when appropriate. If patient noted with a risk of falling, they received education on strength, gait, and balance training to prevent future risk of falling. Assessment and Plan Assessment and Plan (1) Lumbar radiculopathy: (2) Lumbar stenosis: (3) Myofascial pain: Plan stat lumbar xray with flexion and extension advised ER f/u for severe uncontrolled pain, falls, loss of bowel/bladder, worsening weakness of RLE increase gabapentin 600mg TID increase baclofen 10mg 1-1.[address] Cutler unable to see patient before 04/05/24 NNCP at our office due to chronic benzo use
== END 2024-03-21 13:09 | disposition home or self-care (01) ==
LOC: PM 13:08
PROVIDERS: PCP Internal Medicine; Visit Provider Nurse Practitioner
DX: M48.061 Spinal stenosis, lumbar region without neurogenic claudication (principal); M54.16 Radiculopathy, lumbar region; M79.18 Myalgia, other site
CPT/HCPCS: G0463

== ENCOUNTER 2024-03-21 13:45 | Outpatient (OUT) | payer OTHER, SELFPAY ==
--- NOTE | 2024-03-21 14:10 | XR_ITS ---
The [address] [address] Patient Name: ROSELIA LO MRN: [id number] date: 1980 Sex: F Assigned Patient Location: [facility] Current Patient Location: Accession/Order Number: [id number] Exam Date: 03/21/2024 13:58 Report Date: 03/22/2024 07:40 At the request of: MEENA DUVALL Procedure: XR lumbar spine 6V w bending EXAMINATION: XR lumbar spine 6V w bending HISTORY: Lumbar radiculopathy/Stenosis COMPARISON: 01/27/2024 FINDINGS: BONES: Neutral projection demonstrates normal alignment with no acute fracture or spondylolisthesis. Mild to moderate spondylosis and facet osteoarthropathy DISC SPACES: Multilevel disc space narrowing most significant at L5-S1 with endplate sclerosis PARASPINOUS: Negative. No paraspinous abnormality is seen. OTHER: No transient spondylolisthesis with flexion or extension XR/XR lumbar spine 6V w bending IMPRESSION: [id number]-[id number] degenerative changes No dynamic instability Electronically authenticated by: TESS BANGURA Date: 03/22/2024 07:40
== END 2024-03-21 13:46 | disposition home or self-care (01) ==
LOC: RAD 13:45
PROVIDERS: PCP Internal Medicine; Visit Provider Nurse Practitioner
DX: M48.061 Spinal stenosis, lumbar region without neurogenic claudication (principal); M54.16 Radiculopathy, lumbar region; M79.18 Myalgia, other site; M51.36 Other intervertebral disc degeneration, lumbar region
CPT/HCPCS: 72114; G0463

== ENCOUNTER 2024-03-24 15:07 | Emergency (ER) | payer OTHER, SELFPAY ==
[2024-03-24] VITALS (29 sets, daily range): BP systolic 111–135; BP diastolic 67–97; PULSE 67–91; TEMP 37.1–37.6; O2SAT 93–99
--- OUTSIDE RECORDS SUMMARY | 2024-03-24 15:12 | XMS_ITS ---
Patient Summarization (C-CDA 2.1 CCD) Created on: March 24, 2024 ROSELIA LO : 1980 Sex: Female Author Organization Sample organization Care Team Providers Care Meter Reading Clerk Name Role Phone UNKNOWN, PHYSICIAN Referring Unavailable UNKNOWN, PHYSICIAN Primary Care Unavailable AUSTENHEIMDARRENIL Attending Unavailable EBRAHEIM, OLE Admitting Unavailable AICHHOLZ, ASSISTANT GOLF COURSE SUPERINTENDENT AINSLEY Admitting Unavailable SVETA, DR TESS Eaton Consulting Unavailable AICHHOLZ, ASSISTANT GOLF COURSE SUPERINTENDENT AINSLEY Attending Unavailable AICHHOLZ, ASSISTANT GOLF COURSE SUPERINTENDENT AINSLEY Primary Care Unavailable AICHHOLZ, ASSISTANT GOLF COURSE SUPERINTENDENT AINSLEY Consulting Unavailable AICHHOLZ, ASSISTANT GOLF COURSE SUPERINTENDENT AINSLEY Primary Care Unavailable AICHHOLZ, ASSISTANT GOLF COURSE SUPERINTENDENT AINSLEY Admitting Unavailable AICHHOLZ, ASSISTANT GOLF COURSE SUPERINTENDENT AINSLEY Attending Unavailable AICHHOLZ, ASSISTANT GOLF COURSE SUPERINTENDENT AINSLEY Primary Care Unavailable HELIO, DR RANDOLPH Mehta Admitting Unavailable HELIO, DR RANDOLPH Mehta Attending Unavailable HELIO, DR RANDOLPH Mehta Consulting Unavailable HELIO, DR RANDOLPH Mehta Admitting Unavailable YOLANDA, DR NEVAREZ Primary Care Unavailable HELIO, DR RANDOLPH Mehta Attending Unavailable HELIO, DR RANDOLPH Mehta Consulting Unavailable AICHHOLZ, ASSISTANT GOLF COURSE SUPERINTENDENT AINSLEY Primary Care Unavailable AICHHOLZ, ASSISTANT GOLF COURSE SUPERINTENDENT AINSLEY Admitting Unavailable AICHHOLZ, ASSISTANT GOLF COURSE SUPERINTENDENT AINSLEY Attending Unavailable AICHHOLZ, ASSISTANT GOLF COURSE SUPERINTENDENT AINSLEY Consulting Unavailable Aicha Shankar Unavailable AICHHOLZ, AINSLEY J Primary Care Unavailable DIDI TAYLOR. Attending Unavailable DIDI TAYLOR. Attending Unavailable BRANDON, DIDI E. Referring Unavailable AICHHOLZ, AINSLEY J Primary Care Unavailable BRANDON, DIDI E. Attending Unavailable RINEMILIANA, DIDI E. Referring Unavailable AICHHOLZ, AINSLEY J Primary Care Unavailable Aichholz TRY ON BASTER-Imelda APONTEa J Primary Care Provider ANTONIA AINSLEY J Referring Unavailable AICHHOLZ, AINSLEY J Primary Care Unavailable AICHHOLZ, AINSLEY J Referring Unavailable AICHHOLZ, AINSLEY J Primary Care Unavailable AINSLEY SELLERS Attending Unavailable AINSLEY SELLERS Attending Unavailable SWETA BRIGGS Attending Unavailable SWETA BRIGGS Referring Unavailable AINSLEY SELLERS Attending Unavailable RENA SMITH Attending Unavailable SUMMERS, SAY Referring Unavailable SHAIKH PÉREZ Attending Unavailable ANTONIA, AINSLEY Attending Unavailable RENA SMITH Attending Unavailable SUMMERS, SAY Referring Unavailable KELBLEY, ODALIS Attending Unavailable SUMMERS, SAY Referring Unavailable BRITANYTERSSTEPAN MONIQUE Attending Unavailable SUMMERS, SAY Referring Unavailable KELBLEY, ODALIS Attending Unavailable SUMMERS, SAY Referring Unavailable Allergies Allergy Classification Reported Allergen(s) Allergy Type Date of Onset Reaction(s) Facility diphenhydrAMINE (1 source) diphenhydrAMINE; Translations: [BENADRYL] Drug Allergy 08-19-20 10 [facility] Repository (4 sources) Codeine; Translations: [CODEINE] Drug Allergy 05-30-20 13 [facility] Repository (1 source) diphenhydrAMINE Drug Allergy 05-30-[address] [facility] Repository (4 sources) Codeine Drug Allergy 05-06-20 17 [employer] [employer] Other (3 sources) diphenhydrAMINE Drug Allergy 02-24-20 24 [facility] (4 sources) diphenhydrAMINE; Translations: [DIPHENHYDRAMINE HCL] Drug Allergy 05-06-20 17 [facility] Repository Encounters Encounter Date Encounter Type Care Provider Facility Start: 03-22-2024 End: 03-22-2024 ambulatory ODALIS HERNANDEZY Not Available Start: 03-20-2024 ambulatory STEPAN RONDONENEIDA Not A vailable Start: 03-15-2024 End: 03-15-2024 ambulatory ODALIS KELBLEY Not Available Start: 03-13-2024 End: 03-13-2024 ambulatory AINSLEY Cb SELLERS [facility] Start: 03-13-2024 End: 03-13-2024 ambulatory RENA SMITH Not Available Start: 03-08-2024 End: 03-08-2024 ambulatory AINSLEY SELLERS Not Available Start: 03-07-2024 End: 03-08-2024 ambulatory RENA SMITH Not Available Start: 02-24-2024 End: 02-24-2024 ambulatory [facility] Work Phone: Start: 02-24-2024 End: 02-24-2024 Patient encounter procedure [facility] Neurosurgery Work Phone: Start: 01-30-2024 End: 01-30-2024 ambulatory AISNLEY AICHHOLZ Not Available Start: 01-18-2024 End: 01-19-2024 ambulatory SWETA BRIGGS Not Available Start: 01-12-2024 End: 01-12-2024 ambulatory AINSLEY AICHHOLZ Not Available Start: 01-01-2024 End: 01-01-2024 Patient encounter procedure [facility] Urgent [facility] Work Phone: Start: 12-22-2023 End: 12-22-2023 ambulatory [facility] Ob Medicaid Collection Specialist [facility] Comment on above: Encounter for survei llance of injectable contraceptive (Primary Dx) Start: 11-17-2023 End: 11-17-2023 ambulatory AINSLEY AICHHOLZ Not Available Start: 11-15-2023 Telephone encounter Sharri b[facility] Obstetrics/Gynecology Start: 10-28-2023 End: 10-29-2023 Emergency department patient visit [facility] Start: 10-28-2023 End: 10-29-2023 Emergency department patient visit [facility] Start: 10-06-2023 End: 10-06-2023 ambulatory SHAIKH BETO Not Available Start: 12-24-2022 End: 12-24-2022 ambulatory Aicha Shankar Other [employer] Other Start: 12-24-2022 Office outpatient vi sit 25 minutes Aicha Shankar [facility] Start: 06-01-2022 End: 06-01-2022 ambulatory Aicha Shankar Other [employer] Other Start: 06-01-2022 Office outpatient ne w 30 minutes Aicha Shankar [facility] [place] Start: 03-18-2022 End: 03-19-2022 ambulatory FADI SELLERS Facility:[facility] Start: 01-29-2022 End: 01-29-2022 ambulatory FADI SELLERS Facility:[facility] Start: 11-24-2021 End: 11-27-2021 ambulatory FADI SELLERS Facility:[facility] Start: 11-18-2021 End: 11-19-2021 ambulatory FADI SELLERS Facility:[facility] Start: 10-17-2021 End: 10-17-[address] RANDOLPH CADET Facility:[facility] Start: 01-06-2021 End: 01-21-2021 ambulatory PHYSICIAN UNKNOWN Facility:[facility] Immunizations Immunization Date Immunization Notes Care Provider Fa [facility] 09-03-2022 influenza virus vaccine, unspecified formulation Sharri Gipson [facility] Medications Current Medications Medication Drug Class(es) Dates [...] 1.5 mg/ml oral solution (1 source) Uncompetitive V-qxzwlf-U-aspartat e Receptor Antagonist, Sigma-1 Agonist Start: 12-24-2022 Delight DM 7.5-7.5 MG/5ML 10 ml Orally every [...] tablet (3 sources) Serotonin-3 Receptor Antagonist Start: 022 take 1 tablet by mouth every eight [...] 01, 2024 1:00am Start this prescription on March 4. sertraline 50 mg oral tablet (1 source) [...] 150 mg Start: 12-22-2023 End: 12-22-2023 medroxyPROGESTERone (DEPO-ND OVERA) injection 150 mg Payers Date Payer Category Payer [facility] Health [facility] [id number] 2022-Present [phone] [address] [address] [place] [address] [id number] 2022 Unknown [id number] 2.16.840.1.018656.19 1980 Unknown [id number] 2.16.840.1.146156.3.579 .2.647 1980 Unknown [id number] 2.16.840.1.002625.3.579 .2.593 1980 Unknown [id number] 2.16.840.1.881193.3.579 .2.593 1980 Unknown [id number] 2.16.840.1.512982.3.579 .2.593 1980 Unknown [id number] 2.16.840.1.987082.3.579 .2.593 1980 Unknown [id number] 2.16.840.1.757164.3.579 .2.593 1980 Unknown [id number] 2.16.840.1.870998.3.579 .2.1285 1980 Unknown [id number] 2.16.840.1.727737.3.579 .2.1285 1980 Unknown [id number] 2.16.840.1.619790.3.579 .2.1285 1980 Unknown [id number] 2.16.840.1.680647.3.579 .2.1285 1980 Unknown [id number] 2.16.840.1.637886.3.579 .2.1285 1980 Unknown [id number] 2.16840.1.578572.3.579 .2.1258 1980 Unknown [id number] 2.16840.1.199786.3.579 .2.1258 1980 Unknown [id number] 2.16.840.1.299563.3.579 .2.1258 1980 Unknown [id number] 2.16.840.1.081812.3.579 .2.1258 1980 Unknown [id number] 2.16.840.1.880127.3.579 .2.1258 1980 Unknown [id number] 2.16.840.1.118514.3.579 .2.1258 1980 Unknown [id number] 2.16.840.1.655335.3.579 .2.1258 1980 Unknown [id number] 2.16.840.1.206827.3.579 .2.1258 1980 Unknown [id number] 2.16.840.1.458131.3.579 .2.1258 1980 Unknown [id number] 2.16.840.1.144853.3.579 .2.1259 1980 Unknown [id number] 2.16.840.1.662307.3.579 .2.1259 1980 Unknown [id number] 2.16.840.1.789487.3.579 .2.1259 1959 Unknown [id number] Worker's Compensation [id number] Plan of Treatment Date Care Activity Detail Author Start: 03-24-2025 Screening for malign ant neoplasm of cervix Pap Smear [facility] Start: 10-28-2024 Tobacco Screening Tobacco Screening [facility] Start: 04-26-2024 Adult BMI Follow Up Plan Adult BMI Follow Up Plan [facility] Start: 04-26-2024 Adult BMI Screening Adult BMI Screen ing [facility] Start: 04-26-2024 Depression Screening Depression Scre ening [facility] Start: 04-15-2024 Screening for malign ant neoplasm of breast Mammogram [facility] Start: 03-13-2024 End: 03-13-2024 ambulatory 03/13/2024 11:45 AM EDT Nurse Injection [facility] [place] [address] [place] [address] [facility] [place] Start: 12-21-2023 End: 12-21-2023 ambulatory 12/21/2023 3:30 PM EST Nurse Injection [facility] [place] [address] [place] [address] [facility] [place] Start: 07-01-2023 COVID-19 Vaccine ( season) COVID-19 Vaccine ( season) [facility] Start: 07-01-2023 Influenza vaccination Influenza Vacc ine [facility] Start: 1999 DTaP,Tdap and Td Vaccines (1 - Tdap) DTaP,Tdap and Td Vaccines ( - Tdap) [facility] Start: 1980 Tobacco Counseling Tobacco Counselin g [facility] XR Lumbar spine Views [facility] Problems Active Problems Problem Classification Problem Date [...] 04-26-2023 04-26-2023 Other aftercare (1 source) Other group home (current) drug therapy; Translations: [OTH ALF CURRENT DRUG THERAPY] Onset: 02-01-2022 Episodic Other [...] (1 source) COVID-19 Onset: 06-01-2022 Resolved: 06-01-2022 Procedures Date Procedure Procedure Detail Performing Clinician Start: 04-26-2023 Adult depression scr eening assessment Sharri Gipson Start: 04-15-2023 Mammography Sharri Gipson Start: 03-24-2022 Microscopic observat ion [Identifier] in Cervix by Cyto stain Sharri Gipson Results Test Name Value Interpretation Reference Range Facility CBC AND AUTO DIFFon 10-28-20 ABSOLUTE BASOPHIL 0.1 X10E9/L Normal 0.0-0.2 [facility] Comment on above: Performed By: #### 1 0839-9, , CBCA, CMP, 89036-9 #### [facility] ([id number]) [address] [place] [address] 12878 ABSOLUTE NEUTROPHIL 10.5 X10E9/L High 1.5-6.6 [facility] Comment on above: Performed By: #### 1 0839-9, , CBCA, CMP, 84131-2 #### [facility] ([id number]) [address] [place] [address] 12286 Basophils/100 WBC (Bld) 0.4 % Normal [facility] Comment on above: Performed By: #### 1 08399, , CBCA, CMP, 09360-9 #### [facility] ([id number]) [address] [place] [address] 86615 Eosinophils (Bld) [#/Vol] 0.3 10*3/uL Normal 0.0-0.4 [facility] Comment on above: Performed By: #### 1 9, , CBCA, CMP, 72841-6 #### [facility] ([id number]) [address] [place] [address] 26853 Eosinophils/100 WBC (Bld) 2.2 % Normal [facility] Comment on above: Performed By: #### 1 9, , CBCA, CMP, 58515-5 #### [facility] ([id number]) [address] [place] [address] 09372 Erythrocyte distribution width (RBC) [Ratio] 15.2 % High 11.5-15.0 [facility] Comment on above: Performed By: #### 1 9, , CBCA, CMP, 31010-7 #### [facility] ([id number]) [address] [place] [address] 67841 Hematocrit (Bld) [Volume fraction] 42.7 % Normal 35-47 [facility] Comment on above: Performed By: #### 1 9, , CBCA, CMP, 09358-4 #### [facility] ([id number]) [address] [place] [address] 76201 Hemoglobin (Bld) [Mass/Vol] 14.6 g/dL Normal 11.7-15.5 [facility] Comment on above: Performed By: #### 1 9, , CBCA, CMP, 98384-9 #### [facility] ([id number]) [address] [place] [address] 13573 Lymphocytes (Bld) [#/Vol] 1.7 10*3/uL Normal 1.0-3.5 [facility] Comment on above: Performed By: #### 1 9, , CBCA, CMP, 89452-9 #### [facility] ([id number]) [address] [place] [address] 31655 Lymphocytes/100 WBC (Bld) 12.8 % Normal [facility] Comment on above: Performed By: #### 1 9, , CBCA, CMP, 93602-5 #### [facility] ([id number]) [address] [place] [address] 01644 MCH (RBC) [Entitic mass] 33.8 pg Normal 27-34 [facility] Comment on above: Performed By: #### 1 838-9, , CBCA, CMP, 15847-9 #### [facility] ([id number]) [address] [place] [address] 64177 MCHC (RBC) [Mass/Vol] 34.3 g/dL Normal 32-36 [facility] Comment on above: Performed By: #### 1 9, , CBCA, CMP, 06797-0 #### [facility] ([id number]) [address] [place] [address] 91635 MCV (RBC) [Entitic vol] 99 fL Normal 80-100 [facility] Comment on above: Performed By: #### 1 9, , CBCA, CMP, 67364-7 #### [facility] ([id number]) [address] [place] [address] 08713 Monocytes (Bld) [#/Vol] 0.8 10*3/uL Normal 0-0.9 [facility] Comment on above: Performed By: #### 1 9, , CBCA, CMP, 51197-9 #### [facility] ([id number]) [address] [place] [address] 89768 Monocytes/100 WBC (Bld) 5.7 % Normal [facility] Comment on above: Performed By: #### 1 0839-9, , CBCA, CMP, 81117-5 #### [facility] ([id number]) [address] [place] [address] 37858 Neutrophils/100 WBC (Bld) 78.9 % Normal [facility] Comment on above: Performed By: #### 1 39-9, , CBCA, CMP, 81433-9 #### [facility] ([id number]) [address] [place] [address] 73661 Platelet mean volume (Bld) [Entitic vol] 8.6 fL Normal 7-12 [facility] Comment on above: Performed By: #### 1 838-9, , CBCA, CMP, 14803-4 #### [facility] ([id number]) [address] [place] [address] 87296 Platelets (Bld) [#/Vol] 247 10*3/uL Normal 150-450 [facility] Comment on above: Result Comment: PLAT ELETS REVIEWED Performed By: #### 1 39-9, , CBCA, CMP, 50898-6 #### [facility] ([id number]) [address] [place] [address] 41898 RBC COUNT 4.32 X10E12/L Normal 3.80-5.20 [facility] Comment on above: Performed By: #### 1 399, , CBCA, CMP, 32226-6 #### [facility] ([id number]) [address] [place] [address] 74518 WBC (Bld) [#/Vol] 13.3 10*3/uL High 4.0-11.0 [facility] Comment on above: Performed By: #### 1 0839-9, , CBCA, CMP, 81677-5 #### [facility] ([id number]) [address] [place] [address] 99590 COMPREHENSIVE METABOLIC PANE Scott 10-28-2023 Albumin [Mass/Vol] 4.0 g/dL Normal 3.2-5.3 [facility] Comment on above: Performed By: #### 1 0839-9, 66461-3, CBCA, CMP, 53515-3 #### [facility] ([id number]) [address] [place] [address] 72150 ALP [Catalytic activity/Vol] 76 U/L Normal 39-130 [facility] Comment on above: Performed By: #### 1 0839-9, 71735-2, CBCA, CMP, 65977-9 #### [facility] ([id number]) [address] [place] [address] 43318 ALT [Catalytic activity/Vol] 18 U/L Normal 0-31 [facility] Comment on above: Performed By: #### 1 0839-9, 37937-7, CBCA, CMP, 25586-9 #### [facility] ([id number]) [address] [place] [address] 37022 Anion gap [Moles/Vol] 3 mmol/L Low 5-15 [facility] Comment on above: Performed By: #### 1 39-9, 20430-9, CBCA, CMP, 28726-4 #### [facility] ([id number]) [address] [place] [address] 07896 AST [Catalytic activity/Vol] 20 U/L Normal 0-41 [facility] Comment on above: Performed By: #### 1 0839-9, 60072-1, CBCA, CMP, 34671-4 #### [facility] ([id number]) [address] [place] [address] 05574 Bilirubin [Mass/Vol] 0.8 mg/dL Normal 0.3-1.2 [facility] Comment on above: Performed By: #### 1 0839-9, , CBCA, CMP, 97892-1 #### [facility] ([id number]) [address] [place] [address] 38860 Calcium [Mass/Vol] 8.6 mg/dL Normal 8.5-10.5 [facility] Comment on above: Performed By: #### 1 39-9, , CBCA, CMP, 37512-2 #### [facility] ([id number]) [address] [place] [address] 79955 Chloride [Moles/Vol] 113 mmol/L High 98-109 [facility] Comment on above: Performed By: #### 1 39-9, , CBCA, CMP, 86972-6 #### [facility] ([id number]) [address] [place] [address] 62035 CO2 [Moles/Vol] 22 mmol/L Normal 22-32 [facility] Comment on above: Performed By: #### 1 0839-9, , CBCA, CMP, 09930-8 #### [facility] ([id number]) [address] [place] [address] 79789 Creatinine [Mass/Vol] 1.15 mg/dL High 0.40-1.00 [facility] Comment on above: Result Comment: METH OD TRACEABLE TO IDMS STANDARD Performed By: #### 1 399, , CBCA, CMP, 78002-0 #### [facility] ([id number]) [address] [place] [address] 88508 GFR/1.73 sq M.predicted among non-blacks MDRD (S/P/Bld) [Vol rate/Area] 61 mL/min/{1.73_m2} Normal >59 [facility] Comment on above: Result Comment: Reported eGFR is based on the CKD-EPI 2020 equation that does not use a race coefficient. Performed By: #### 1 39-9, , CBCA, CMP, 69213-7 #### [facility] ([id number]) [address] [place] [address] 71792 Glucose [Mass/Vol] 84 mg/dL Normal 65-99 [facility] Comment on above: Performed By: #### 1 838-9, , CBCA, CMP, 06354-7 #### [facility] ([id number]) [address] [place] [address] 17656 Potassium [Moles/Vol] 4.7 mmol/L Normal 3.5-5.0 [facility] Comment on above: Performed By: #### 1 9, , CBCA, CMP, 36827-1 #### [facility] ([id number]) [address] [place] [address] 64031 Protein [Mass/Vol] 6.9 g/dL Normal 6.0-8.0 [facility] Comment on above: Performed By: #### 1 9, , CBCA, CMP, 58316-2 #### [facility] ([id number]) [address] [place] [address] 10319 Sodium [Moles/Vol] 138 mmol/L Normal 134-146 [facility] Comment on above: Performed By: #### 1 9, , CBCA, CMP, 05963-9 #### [facility] ([id number]) [address] [place] [address] 42583 Urea nitrogen [Mass/Vol] 12 mg/dL Normal 5-23 [facility] Comment on above: Performed By: #### 1 399, , CBCA, CMP, 12469-7 #### [facility] ([id number]) [address] [place] [address] BRAIN WO CONTon 3 CT BRAIN [...] Roblero MD on 10/28/2023 5:13 PM Normal [facility] Fibrin D-dimer DDU (PPP) [Ma ss/Vol]on 10-28-2023 D DIMER <150 Normal <255 [facility] Comment on above: Result Comment: Results <255 ng/mL DDU: The presence of a VTE can safely be excluded with a negative D-Dimer result and Wells score. A negative result doesn't exclude the possibility of DIC. The test be repeated along with other diagnostic tests if the patient's symptoms persist or worsen. [email or web address] Performed By: #### 1 0839-9, , CBCA, CMP, 41625-2 #### [facility] ([id number]) [address] [place] [address] 65525 MAGNESIUMon 10-28-2023 Magnesium [Mass/Vol] 2.0 mg/dL Normal 1.8-2.6 [facility] Comment on above: Performed By: #### 1 0839-9, , CBCA, CMP, 72866-6 #### [facility] ([id number]) [address] [place] [address] 37799 SARS/FLU A+B/RSV by NAAT/Mol [facility] 10-28-2023 SARS/FLU A+B/RSV by NAAT/Molecular FLU A [...] operators who are performing tests using either [employer] or [employer] systems and is limited to laboratories that [...] repeat. Fact Sheet for Healthcare Providers: https://www.fda.gov/ media/653993/downloa d Fact Sheet for Patients: https://www.fda.gov/ media/328506/downloa d [facility] Comment on above: Performed By: #### C OVFLR #### [facility] ([id number]) [address] [place] [address] 83250 TROPONIN Ion 10-28-2023 Troponin I.cardiac [Mass/Vol] ng/mL Normal 0.00-0.04 [facility] Comment on above: Performed By: #### 1 0839-9, 23743-1, CBCA, CMP, 62323-6 #### [facility] ([id number]) [address] [place] [address] 08454 URN MACROSCOPIC NURon 2022 BILIRUBIN OLIVIA Negative Normal NEG [facility] Comment on above: Performed By: #### N UM #### [facility] ([id number]) [address] [place] [address] 35907 BLOOD/HGB OLIVIA Trace Abnormal NEG [facility] Comment on above: Performed By: #### N UM #### [facility] ([id number]) [address] [place] [address] [place] [address] GLUCOSE OLIVIA Negative Normal NEG [facility] Comment on above: Performed By: #### N UM #### [facility] ([id number]) [address] [place] [address] 97597 KETONES OLIVIA Negative Normal NEG [facility] Comment on above: Performed By: #### N UM #### [facility] ([id number]) [address] [place] [address] [place] [address] LEUKOCYTE ESTERASE OLIVIA Negative Normal NEG [facility] Comment on above: Performed By: #### N UM #### [facility] ([id number]) [address] [place] [address] 92264 NITRITE OLIVIA Negative Normal NEG [facility] Comment on above: Performed By: #### N UM #### [facility] ([id number]) [address] [place] [address] 46068 PH OLIVIA 6.0 Normal 5.0-8.5 [facility] Comment on above: Performed By: #### N UM #### [facility] ([id number]) [address] [place] [address] [id number] PROTEIN OLIVIA Negative Normal NEG [facility] Comment on above: Performed By: #### N UM #### [facility] ([id number]) [address] [place] [address] [id number] SPECIFIC GRAVITY OLIVIA 1.010 Normal 1.003-1.035 [facility] Comment on above: Performed By: #### N UM #### [facility] ([id number]) [address] [place] [address] [id number] UROBILINOGEN OLIVIA 0.2 eu/dL Normal <1.1 [facility] Comment on above: Performed By: #### N UM #### [facility] ([id number]) [address] [place] [address] [id number] COVID/FLU/RSV RT-PCRon 12-24 SARS-CoV-2 (COVID-19) RNA KAREN+probe Ql (Unsp spec) Negative [employer] [facility] [facility] [employer] Other COVID/FLU/RSV RT-PCR Negative [employer] Other SARS-CoV-2 (COVID-19) RNA NA A+probe Ql (Resp)on 06-01-2022 SARS-CoV-2 (COVID-19) RNA KAREN+probe Ql (Unsp spec) Positive [employer] [facility] [employer] Other REJI by IFAon 03-22-2022 Antinuclear Antibodies, IFA Negative Normal [facility] Comment on above: Result Comment: Nega tive <1:80 Borderline 1:80 Positive >1:80 ICAP nomenclature: AC-0 For more information about Hep-2 cell patterns use ANApatterns.org, the official website for the International Consensus on Antinuclear Antibody (REJI) Patterns (ICAP). Performed By: #### A LILIAM #### [facility] [address] [place] [address] Dr. Andre Haynes THYROID ANTIBODIESon 022 Thyroglobulin Antibody <1.0 Normal 0.0-0.[address] [facility] Comment on above: Result Comment: Thyr oglobulin Antibody measured by [employer] Methodology Performed By: #### T HYRABS #### [facility] [address] [place] [address] Dr. Andre Haynes Thyroid Peroxidase (TPO) Ab 10 IU/mL Normal 0-[address] [facility] Comment on above: Performed By: #### T HYRABS #### [facility] [address] [place] [address] Dr. Andre Haynes ANTISTREPTOLYSIN O AB (ASO) on 03-19-2022 Antistreptolysin O Ab <20.0 Normal 0.0-200.[address] [facility] Comment on above: Performed By: #### A SOAB #### [facility] [address] [place] [address] Dr. Andre Haynes RHEUMATOID FACTORon 03-19-20 22 RA Latex Turbid. <10.0 Normal <14.0 [facility] Comment on above: Performed By: #### R F #### [facility] [address] [place] [address] Dr. Andre Haynes CBC AUTO DIFFon 03-18-2022 BASO # 0.0 103/ul Normal 0.0-0.1 [facility] Comment on above: Performed By: #### C BC #### [facility] [address] [place] [address] Dr. Andre Haynes Basophils/100 WBC (Bld) 0.3 % Normal 0.2-2.[address] [facility] Comment on above: Performed By: #### C BC #### [facility] [address] [place] [address] Dr. Andre Haynes EO # 0.4 103/ul Normal 0.0-0.[address] [facility] Comment on above: Performed By: #### C BC #### [facility] [address] [place] [address] Dr. Andre Haynes Eosinophils/100 WBC (Bld) 4.0 % Normal 0.9-7.0 [facility] Comment on above: Performed By: #### C BC #### [facility] [address] [place] [address] Dr. Andre Haynes Erythrocyte distribution width (RBC) [Ratio] 12.5 % Normal 11.0-15.0 [facility] Comment on above: Performed By: #### C BC #### [facility] [address] [place] [address] Dr. Andre Haynes Hematocrit (Bld) [Volume fraction] 41.9 % Normal 36.0-48.0 [facility] Comment on above: Performed By: #### C BC #### [facility] [address] [place] [address] Dr. Andre Haynes Hemoglobin (Bld) [Mass/Vol] 14.4 g/dL Normal 12.0-16.0 [facility] Comment on above: Performed By: #### C BC #### [facility] [address] [place] [address] Dr. Andre Haynes IG # 0.04 10e3/ul Critically high 0.00-0.03 [facility] Comment on above: Performed By: #### C BC #### [facility] [address] [place] [address] Dr. Andre Haynes IG % 0.4 % Normal 0.0-0.5 [facility] Comment on above: Performed By: #### C BC #### [facility] [address] [place] [address] Dr. Andre Haynes LYMPH # 2.6 103/ul Normal 1.2-3.[address] [facility] Comment on above: Performed By: #### C BC #### [facility] [address] [place] [address] Dr. Andre Haynes Lymphocytes/100 WBC (Bld) 29.2 % Normal 20.5-60.0 [facility] Comment on above: Performed By: #### C BC #### [facility] [address] [place] [address] Dr. Andre Haynes MANUAL DIFF REQ NO Normal [facility] Comment on above: Performed By: #### C BC #### [facility] [address] [place] [address] Dr. Andre Haynes MCH (RBC) [Entitic mass] 33.3 pg Normal 26.7-34.0 [facility] Comment on above: Performed By: #### C BC #### [facility] [address] [place] [address] Dr. Andre Haynes MCHC (RBC) [Mass/Vol] 34.4 g/dL Normal 29.9-35.2 [facility] Comment on above: Performed By: #### C BC #### [facility] [address] [place] [address] Dr. Andre Haynes MCV (RBC) [Entitic vol] 97.0 fL Normal 81.0-99.0 [facility] Comment on above: Performed By: #### C BC #### [facility] [address] [place] [address] Dr. Andre Haynes MONO # 0.6 103/ul Normal 0.3-0.8 [facility] Comment on above: Performed By: #### C BC #### [facility] [address] [place] [address] Dr. Andre Haynes Monocytes/100 WBC (Bld) 6.4 % Normal 1.7-12.0 [facility] Comment on above: Performed By: #### C BC #### [facility] [address] [place] [address] Dr. Andre Haynes NEUT # 5.4 103/ul Normal 1.4-6.[address] [facility] Comment on above: Performed By: #### C BC #### [facility] [address] [place] [address] Dr. Andre Haynes Neutrophils/100 WBC (Bld) 59.7 % Normal 43.0-75.0 [facility] Comment on above: Performed By: #### C BC #### [facility] [address] [place] [address] Dr. Andre Haynes Platelet mean volume (Bld) [Entitic vol] 9.9 fL Normal 9.5-13.5 [facility] Comment on above: Performed By: #### C BC #### [facility] [address] [place] [address] Dr. Andre Haynes PLT 217 103/ul Normal 150-[address] [facility] Comment on above: Performed By: #### C BC #### [facility] [address] [place] [address] Dr. Andre Haynes RBC 4.32 106/ul Normal 4.20-5.40 [facility] Comment on above: Performed By: #### C BC #### [facility] [address] [place] [address] Dr. Andre Haynes WBC 9.0 103/ul Normal 4.0-11.0 [facility] Comment on above: Performed By: #### C BC #### [facility] [address] [place] [address] Dr. Andre Haynes CRPon 03-18-2022 CRP [Mass/Vol] mg/L Normal <=1.0 [facility] Comment on above: Performed By: #### R F #### [facility] [address] [place] [address] Dr. Andre Haynes FERRITINon 03-18-2022 Ferritin [Mass/Vol] 35.0 ng/mL Normal 6.2-137.0 [facility] Comment on above: Performed By: #### R F #### [facility] [address] [place] [address] Dr. Andre Haynes FREE T3on 03-18-2022 FREE T3 3.61 pg/mlL Normal 2.18-3.98 [facility] Comment on above: Performed By: #### R F #### [facility] [address] [place] [address] Dr. Andre Haynes FREE T4on 03-18-2022 Free T4 [Mass/Vol] 1.00 ng/dL Normal 0.76-1.46 [facility] Comment on above: Performed By: #### R F #### [facility] [address] [address] [address] Andre Haynes IRONon 03-18-2022 Iron [Mass/Vol] 87.0 ug/dL Normal 50.0-170.0 [facility] Comment on above: Performed By: #### R F #### [facility] [address] [place] [address] Dr. Andre Haynes LIVER PROFILEon 03-18-2022 Albumin [Mass/Vol] 3.7 g/dL Normal 3.4-5.0 [facility] Comment on above: Performed By: #### R F #### [facility] [address] [place] [address] Dr. Andre Haynes Albumin/Globulin [Mass ratio] 1.3 {ratio} Normal [facility] Comment on above: Performed By: #### R F #### [facility] [address] [place] [address] Dr. Andre Haynes ALP [Catalytic activity/Vol] 74 U/L Normal 46-116 [facility] Comment on above: Performed By: #### R F #### [facility] [address] [place] [address] Dr. Andre Haynes ALT [Catalytic activity/Vol] 24 U/L Normal 14-59 [facility] Comment on above: Performed By: #### R F #### [facility] [address] [place] [address] Dr. Andre Haynes AST [Catalytic activity/Vol] 13 U/L Critically low 15-37 [facility] Comment on above: Performed By: #### R F #### [facility] [address] [place] [address] Dr. Andre Haynes BILI, CONJUGATED 0.1 mg/dL Normal 0.0-0.2 [facility] Comment on above: Performed By: #### R F #### [facility] [address] [place] [address] Dr. Andre Haynes Bilirubin [Mass/Vol] 0.3 mg/dL Normal 0.2-1.0 [facility] Comment on above: Performed By: #### R F #### [facility] [address] [place] [address] Dr. Andre Haynes Globulin (S) [Mass/Vol] 2.8 g/dL Normal [facility] Comment on above: Performed By: #### R F #### [facility] [address] [place] [address] Dr. Andre Haynes Protein [Mass/Vol] 6.5 g/dL Normal 6.4-8.2 [facility] Comment on above: Performed By: #### R F #### [facility] [address] [place] [address] Dr. Andre Haynes PROF CHEM 8 (BAS METB)on Anion gap [Moles/Vol] 12.0 mmol/L Normal [facility] Comment on above: Performed By: #### F T3, LIVER, BMP, TSH, URIC, CRP #### [facility] [address] [place] [address] Dr. Andre Haynes Calcium [Mass/Vol] 8.8 mg/dL Normal 8.5-10.1 [facility] Comment on above: Performed By: #### F T3, LIVER, BMP, TSH, URIC, CRP #### [facility] [address] [place] [address] Dr. Andre Haynes Chloride [Moles/Vol] 104 mmol/L Normal 98-[address] [facility] Comment on above: Performed By: #### F T3, LIVER, BMP, TSH, URIC, CRP #### [facility] [address] [place] [address] Dr. Andre Haynes CO2 [Moles/Vol] 25.8 mmol/L Normal 21.0-32.0 [facility] Comment on above: Performed By: #### F T3, LIVER, BMP, TSH, URIC, CRP #### [facility] [address] [place] [address] Dr. Andre Haynes Creatinine [Mass/Vol] 1.05 mg/dL Critically high 0.55-1.02 [facility] Comment on above: Performed By: #### F T3, LIVER, BMP, TSH, URIC, CRP #### [facility] [address] [place] [address] Dr. Andre Haynes EGFR-AF GHANAIAN >60 Normal >=60 [facility] Comment on above: Performed By: #### F T3, LIVER, BMP, TSH, URIC, CRP #### [facility] [address] [address] [address] Andre Haynes EGFR-NON AF GHANAIAN 58 mL/min/1.73m2 Critically low >=[address] [facility] Comment on above: Performed By: #### F T3, LIVER, BMP, TSH, URIC, CRP #### [facility] [address] [address] [address] Andre Haynes Glucose [Mass/Vol] 85 mg/dL Normal 74-106 [facility] Comment on above: Performed By: #### F T3, LIVER, BMP, TSH, URIC, CRP #### [facility] [address] [address] [address] Andre Haynes Potassium [Moles/Vol] 3.8 mmol/L Normal 3.5-5.1 [facility] Comment on above: Performed By: #### F T3, LIVER, BMP, TSH, URIC, CRP #### [facility] [address] [address] [address] Andre Haynes Sodium [Moles/Vol] 138 mmol/L Normal 136-145 [facility] Comment on above: Performed By: #### F T3, LIVER, BMP, TSH, URIC, CRP #### [facility] [address] [address] [address] Andre Haynes Urea nitrogen [Mass/Vol] 11.0 mg/dL Normal 7.0-18.0 [facility] Comment on above: Performed By: #### F T3, LIVER, BMP, TSH, URIC, CRP #### [facility] [address] [address] [address] Andre Haynes Urea nitrogen/Creatinine [Mass ratio] 10.5 mg/mg Normal [facility] Comment on above: Performed By: #### F T3, LIVER, BMP, TSH, URIC, CRP #### [facility] [address] [address] [address] Andre Haynes PROTIMEon 03-18-2022 INR Coag (PPP) [Relative time] 1.01 {INR} Normal [facility] Comment on above: Performed By: #### P TT, PT #### [facility] [address] [place] [address] Dr. Andre Haynes INR GUIDELINES SEE BELOW Normal [facility] Comment on above: Result Comment: BRICE RED INR: 2.0 - 3.0 CONDITIONS NOT LISTED BELOW 2.5 - 3.5 FOR PROSTHETIC HEART VALVE REPLACEMENT 2.5 - 3.5 RECURRENT THROMBOSIS Performed By: #### P TT, PT #### [facility] [address] [place] [address] Dr. Andre Haynes PT Coag (PPP) [Time] 10.9 s Normal 9.0-11.6 [facility] Comment on above: Performed By: #### P TT, PT #### [facility] [address] [place] [address] Dr. Andre Haynes PTTon 03-18-2022 aPTT Coag (Bld) [Time] 27.2 s Normal 22.3-36.2 [facility] Comment on above: Performed By: #### P TT, PT #### [facility] [address] [place] [address] Dr. Andre Haynes SED RATE SMITHFIELDERGREN 2021 SED RATE 1 mm/hr Normal <=[address] [facility] Comment on above: Performed By: #### A SOAB #### [facility] [address] [place] [address] Dr. Andre Haynes TSHon 03-18-2022 TSH 2.218 uIU/mL Normal 0.358-3.[address] [facility] Comment on above: Performed By: #### R F #### [facility] [address] [place] [address] Dr. Andre Haynes TSH RANGE SEE BELOW Normal [facility] Comment on above: Result Comment: <0.3 4 UIU/ml HYPERTHYROID 0.34-5.60 UIU/ml EUTHYROID >5.60 UIU/ml HYPOTHYROID Performed By: #### R F #### [facility] [address] [place] [address] Dr. Andre Haynes UA (CLEAN/CATCH) MEDICAL RECORDS SUPERVISOR/MICRO I F IND.on 03-18-2022 Bilirubin Ql (U) Negative Normal NEGATIVE [facility] Comment on above: Performed By: #### R F #### [facility] [address] [place] [address] Dr. Andre Haynes Clarity (U) CLEAR Normal CLEAR [facility] Comment on above: Performed By: #### R F #### [facility] [address] [place] [address] Dr. Andre Haynes Color (U) YELLOW Normal YELLOW [facility] Comment on above: Performed By: #### R F #### [facility] [address] [place] [address] Dr. Andre Haynes Glucose Ql (U) Negative Normal NEGATIVE [facility] Comment on above: Performed By: #### R F #### [facility] [address] [place] [address] Dr. Andre Haynes Hemoglobin Ql (U) Negative Normal NEGATIVE [facility] Comment on above: Performed By: #### R F #### [facility] [address] [place] [address] Dr. Andre Haynes Ketones Ql (U) Negative Normal NEGATIVE [facility] Comment on above: Performed By: #### R F #### [facility] [address] [place] [address] Dr. Andre Haynes LEUKOCYTES Negative Normal NEGATIVE [facility] Comment on above: Performed By: #### R F #### [facility] [address] [place] [address] Dr. Andre Haynes Nitrite Ql (U) Negative Normal NEGATIVE [facility] Comment on above: Performed By: #### R F #### [facility] [address] [place] [address] Dr. Andre Haynes pH (U) 6.0 [pH] Normal 5-9 [facility] Comment on above: Performed By: #### R F #### [facility] [address] [place] [address] Dr. Andre Haynes SPEC GRAVITY 1.020 Normal 1.005-<=1.025 [facility] Comment on above: Performed By: #### R F #### [facility] [address] [place] [address] Dr. Andre Haynes UA PROTEIN Negative Normal NEGATIVE/ TRACE [facility] Comment on above: Performed By: #### R F #### [facility] [address] [place] [address] Dr. Andre Haynes UR MICRO IND MICROSCOPIC ALREADY ORDERED Normal [facility] Comment on above: Performed By: #### R F #### [facility] [address] [place] [address] Dr. Andre Haynes Urobilinogen Qn (U) 0.2 {Rafal'U}/dL Normal 0.2 - 1. [address] [facility] Comment on above: Performed By: #### R F #### [facility] [address] [place] [address] Dr. Andre Haynes URIC ACID SERUMon 03-18-2022 Urate [Mass/Vol] 3.9 mg/dL Normal 2.6-6.0 [facility] Comment on above: Performed By: #### R F #### [facility] [address] [place] [address] Dr. Andre Haynes URINE MICROSCOPIC ONLYon BACTERIA NONE SEEN Normal NONE SEEN [facility] Comment on above: Performed By: #### R F #### [facility] [address] [place] [address] Dr. Andre Haynes Bacteria identified Cx Nom (U) NOT INDICATED Normal [facility] Comment on above: Performed By: #### R F #### [facility] [address] [place] [address] Dr. Andre Haynes CAST NONE SEEN Normal NONE SEEN [facility] Comment on above: Performed By: #### R F #### [facility] [address] [place] [address] Dr. Andre Haynes Crystals LM Nom (Urine sed) NONE SEEN Normal NONE SEEN [facility] Comment on above: Performed By: #### R F #### [facility] [address] [place] [address] Dr. Andre Haynes Epithelial cells LM Ql (Urine sed) FEW Abnormal NONE SEEN /RARE [facility] Comment on above: Performed By: #### R F #### [facility] [address] [place] [address] Dr. Andre Haynes MUCOUS NONE SEEN Normal NONE SEEN [facility] Comment on above: Performed By: #### R F #### [facility] [address] [place] [address] Dr. Andre Haynes RBC 0-2 Normal 0-2 [facility] Comment on above: Performed By: #### R F #### [facility] [address] [place] [address] Dr. Andre Haynes WBC NONE SEEN Normal NONE SEEN [facility] Comment on above: Performed By: #### R F #### [facility] [address] [place] [address] Dr. Andre Haynes ER URINE PROFILEon 2 Bilirubin Ql (U) Negative Normal NEGATIVE [facility] Comment on above: Performed By: #### E RUR #### [facility] [address] [place] [address] Dr. Andre Haynes Clarity (U) CLEAR Normal CLEAR [facility] Comment on above: Performed By: #### E RUR #### [facility] [address] [place] [address] Dr. Andre Haynes Color (U) LT. YELLOW Normal YELLOW [facility] Comment on above: Performed By: #### E RUR #### [facility] [address] [place] [address] Dr. Andre Haynes ERUAHD A micrscopic examination will be performed if indicated. Normal [facility] Comment on above: Performed By: #### E RUR #### [facility] [address] [place] [address] Dr. Andre Haynes Glucose Ql (U) Negative Normal NEGATIVE [facility] Comment on above: Performed By: #### E RUR #### [facility] [address] [place] [address] Dr. Andre Haynes Hemoglobin Ql (U) Negative Normal NEGATIVE [facility] Comment on above: Performed By: #### E RUR #### [facility] [address] [place] [address] Dr. Andre Haynes Ketones Ql (U) Negative Normal NEGATIVE [facility] Comment on above: Performed By: #### E RUR #### [facility] [address] [place] [address] Dr. Andre Haynes LEUKOCYTES Negative Normal NEGATIVE [facility] Comment on above: Performed By: #### E RUR #### [facility] [address] [place] [address] Dr. Andre Haynes Nitrite Ql (U) Negative Normal NEGATIVE [facility] Comment on above: Performed By: #### E RUR #### [facility] [address] [place] [address] Dr. Andre Haynes pH (U) 6.0 [pH] Normal 5-9 [facility] Comment on above: Performed By: #### E RUR #### [facility] [address] [place] [address] Dr. Andre Haynes SPEC GRAVITY <=1.005 Abnormal 1.005-<=1.025 [facility] Comment on above: Performed By: #### E RUR #### [facility] [address] [place] [address] Dr. Andre Haynes UA PROTEIN Negative Normal NEGATIVE/ TRACE [facility] Comment on above: Performed By: #### E RUR #### [facility] [address] [place] [address] Dr. Andre Haynes UR MICRO IND NOT INDICATED Normal [facility] Comment on above: Performed By: #### E RUR #### [facility] [address] [place] [address] Dr. Andre Haynes Urobilinogen Qn (U) 0.2 {Rafal'U}/dL Normal 0.2 - 1. 0 [facility] Comment on above: Performed By: #### E RUR #### [facility] [address] [place] [address] Dr. Andre Haynes XR LSPINE MIN 4 [...] TESS BANGURA Date: 2021-11-19 07:[address] [facility] OUTSIDE CONSULT MSKon 2020 OUTSIDE CONSULT [facility] Department of Radiology [address] [place] [id number] Patient Name: ROSELIA LO : 1980 Sex: F Age: Race: White Pt. Location: [facility] Patient Status: Ordered Date: 02/05/2021 3:35:00 PM Completed Date: 02/05/2021 03:51 PM Requesting Provider: OLE TUCKER Attending Provider: Report Copy To: Signs & Symptoms: pt has persistent rt sided pectoralis pain and weakness. Assess pectoralis tendon for injury and/or tear History: Mri of rt shoulder from [facility] dated 11/05/20. Over read requested by Dr Tucker Comments: Exam: OUTSIDE CONSULT MSK OUTSIDE CONSULT [facility]K 02/05/2021 3:51 PM OUTSIDE STUDY: TECHNIQUE: Outside images of the right shoulder obtained from [facility] dated November 05, 2020. Image review with [...] interpretation. Electronically signed: Jonathan Shabazz. 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 Start: 10-31-2000 [facility] Start: 12-10-2020 End: 04-12-2023 Cigarettes smoked current (pack per day) - Reported 0.5 [facility] Start: 04-12-2023 Tobacco use and exposure Smokeless tobacco non-user [facility] Start: 12-24-2022 Tobacco smoking stat us NHIS Never smoked tobacco (finding) [facility] Start: 10-31-2000 History of tobacco use Cigarette Smo ker [facility] Start: 1980 Sex Assigned At Not on file P [place] Start: 1980 Sex Assigned At Female F [facility] Adolescent depressio n screening assessment 7 [facility] Vital Signs Date Time Vital Sign Value Performing Clinician Facility 02-24-2024 09:23-0400 Body height 160.02 cm [facility] 02-24-2024 09:23-0400 Body mass index (BMI) [Ratio] 34.7 kg/m2 [facility] 02-24-2024 09:23-0400 Body weight 89 kg [facility] 01-01-2024 14:16-0500 Body height 160.02 cm [facility] 01-01-2024 14:16-0500 Body mass index (BMI) [Ratio] 31.5 kg/m2 [facility] 01-01-2024 14:16-0500 Body temperature 98.3 [degF] [facility] 01-01-2024 14:16-0500 Body weight 80.73 kg [facility] 01-01-2024 14:16-0500 Heart rate 99 /min [facility] 01-01-2024 14:16-0500 Respiratory rate 18 /min [facility] 01-01-2024 14:16-0500 SaO2% (BldA) [Mass fraction] 98 % [facility] 12-24-2022 09:25-0500 Body height 160.02 cm Aicha Shankar Other [facility] 12-24-2022 09:25-0500 Body mass index (BMI) [Ratio] 29.58 kg/m2 Aicha Shankar Other [facility] Other 12-24-2022 09:25-0500 Body temperature 98.8 [degF] Aicha Shankar Other [facility] Other 12-24-2022 09:25-0500 Body weight 75.75 kg Aicha Shankar Other [facility] Other 12-24-2022 09:25-0500 Respiratory rate 18 /min Aicha Shankar Other [facility] Other 12-24-2022 09:25-0500 SaO2% (BldA) [Mass fraction] 95 % Aicha Shankar Other [facility] Other 06-01-2022 18:20-0400 Body height 160.02 cm Aicha Shankar Other [facility] Other 06-01-2022 18:20-0400 Body mass index (BMI) [Ratio] 27.45 kg/m2 Aicha Shankar Other [facility] Other 06-01-2022 18:20-0400 Body temperature 99.5 [degF] Aicha Shankar Other [facility] Other 06-01-2022 18:20-0400 Body weight 70.31 kg Aicha Shankar Other [facility] Other 06-01-2022 18:20-0400 Respiratory rate 18 /min Aicha Shankar Other [facility] Other 06-01-2022 18:20-0400 SaO2% (BldA) [Mass fraction] 98 % Aicha Wattault Other [facility] Other Clinical Notes 06-01-2022 to 12-22-2023 Haley Velez [...] Depo calendar given. documented in this encounter [facility] 11-15-2023 Miscellaneous Notes Patient called the office [...] understood. SAURABH Camacho [facility] this [facility]-2023 Telephone encounter Note Patient called the [...] with recommendations for the patient. Thank you. [facility] 11-15-2023 Telephone encounter Note If patient is [...] come in for an appt. Thank you. [facility] 11-15-2023 Telephone encounter Note LVM for patient to return our call [facility] 11-15-2023 Telephone encounter Note Pt called back and informed her of this information. Pt verbalized she understood. SAURABH Camacho [facility] 10-28-2023 Note XR CHEST 2 VWS Procedure: Chest x-ray performed Number of views:2 History:Syncope Comparison:10/03/2010 Findings: The heart and lungs show no acute findings, and the mediastinum and meliza are grossly negative . Impression: 1. No acute change. Finalized by Ronni Roblero MD on 10/28/2023 7:04 PM [facility] 12-24-2022 Evaluation note Encounter Date Diagnosis Assessment [...] as decrease in urine, dry mouth, etc [facility] Other 08-02-2022 Evaluation note* Encounter Date Diagnosis [...] action if you have chronic health conditions. [facility] Other Evaluation note* Diagnosis Encounter for surveillance of injectable contraceptive- Primary documented in this encounter [employer] System[employer] noteNo assessment information available [facility] Work Phone: Histkoh general Narrative - Reported* Type Description Date Medical History Anxiety Surgical History C section x 3 Surgical History rotator cuff Surgical History cholecystectomy Hospitalization History Child [employer] [facility] [employer] Other Hiszosj general Narrative - Reported* Type Description Date Medical History Anxiety Medical History Neuropathy Surgical History C section x 3 Surgical History rotator cuff Surgical History cholecystectomy Surgical History hip decompression left Hospitalization History Child [facility] Other InstructionsNot on filedocumented in this encounter [employer] SystemInstructionsNot on filedocumented in this encounter [facility] Summary Purpose Family History No Family History Records Found Relationship Condition Age at Onset Recorded Date/T nusrat father Diabetes mellitus Unknown Heart disease Unknown Advance Directives No Advanced Directives Records Found Advance Directive Response Recorded Date/ Time Advance Directives No December 31 3:00pm Chief Complaint and Reason for Visit Chief Complaint Right leg pain w/o i njury Ref Sweta Briggs, lumbar radiculopathy Additional Source Comments INFORMATION SOURCE (unrecogn ized section and content) DATE CREATED AUTHOR 02/18/2021 [facility] DATE CREATED AUTHOR AUTHOR'S ORGANIZ ATION 06/01/2022 [facility] DATE CREATED AUTHOR AUTHOR'S ORGANIZ ATION 10/30/2023 [facility] DATE CREATED AUTHOR AUTHOR'S ORGANIZ ATION 03/15/2024 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 [employer]. provides no warranty or guarantee of the accuracy or completeness of information in this document.
[2024-03-24 15:56] LABS: Basophils Percent Auto 0.4 % (0.2-2.0); Eosinophils Absolute Auto 0.3 10^3/uL (0.0-0.7); Eosinophils Percent Auto 3.1 % (0.9-7.0); Hematocrit 42.4 % (36.0-48.0); Hemoglobin 14.1 g/dL (12.0-16.0); Immature Granulocytes Abs Auto 0.06 10^3/uL (0.00-0.03); Immature Granulocytes Pct Auto 0.6 % (0.0-0.5); Lymphocytes Absolute Auto 1.9 10^3/uL (1.2-3.8); Lymphocytes Percent Auto 19.5 % (20.5-60.0); Mean Corpuscular HGB Conc 33.3 g/dL (29.9-35.2); Mean Corpuscular Hemoglobin 32.9 pg (26.7-34.0); Mean Corpuscular Volume 99.1 fL (81.0-99.0); Mean Platelet Volume 11.2 fL (9.5-13.5); Monocytes Absolute Auto 0.7 10^3/uL (0.3-0.8); Monocytes Percent Auto 6.6 % (1.7-12.0); Neutrophils Absolute Auto 6.9 10^3/uL (1.4-6.5); Neutrophils Percent Auto 69.8 % (43.0-75.0); Platelet Count 257 10^3/uL (150-450); Red Blood Count 4.28 10^6/uL (4.20-5.40); Red Cell Distribution Width 13.5 % (11.0-15.0); White Blood Count 9.9 10^3/uL (4.0-11.0)
[2024-03-24 15:59] LABS: Bilirubin Urine NEGATIVE (NEGATIVE); Blood Urine NEGATIVE (NEGATIVE); Clarity Urine CLEAR (CLEAR); Color Urine YELLOW (YELLOW); Glucose Urine UA NEGATIVE (NEGATIVE); Ketones Urine NEGATIVE (NEGATIVE); Leukocyte Esterase Urine NEGATIVE (NEGATIVE); Nitrite Urine NEGATIVE (NEGATIVE); Protein Urine NEGATIVE (NEG/TRACE)
[2024-03-24 16:05] LABS: HCG Qualitative Urine* NEGATIVE (NEGATIVE); Internal Control Within Normal Limits
[2024-03-24 16:06] LABS: Urine Microscopic Indicated NO
[2024-03-24 16:31] LABS: Alanine Aminotransferase 24 U/L (14-59); Albumin Level 3.5 g/dL (3.4-5.0); Alkaline Phosphatase 87 U/L (46-116); Aspartate Amino Transferase 13 U/L (15-37); BUN Creatinine Ratio 7.9; Bilirubin Direct 0.1 mg/dL (0.0-0.2); Bilirubin Total 0.4 mg/dL (0.2-1.0); Calcium 8.9 mg/dL (8.5-10.1); Carbon Dioxide 22.3 mmol/L (21.0-32.0); Chloride 105 mmol/L (98-107); Estimated GFR (African America >60 (>=60); Estimated GFR (Non-African Ame 52 (>=60); Globulin 3.5 g/dL; Glucose 94 mg/dL (74-106); Potassium 4.3 mmol/L (3.5-5.1); Sodium 139 mmol/L (136-145); Troponin I High Sensitivity <4.0 pg/mL (4.0-51.3)
--- NOTE | 2024-03-24 16:51 | ECG_ITS ---
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
[2024-03-24] MEDS: ONDANSETRON PF 4 MG/2 ML VIAL IV (16:58)
--- NOTE | 2024-03-24 17:26 | CT_ITS ---
The [address] [address] Patient Name: ROSELIA LO MRN: [id number] date: 1980 Sex: F Assigned Patient Location: ER Current Patient Location: ED.MAIN Accession/Order Number: [id number] Exam Date: 03/24/2024 17:52 Report Date: 03/24/2024 19:15 At the request of: FRENCH FLORES Procedure: CT abdomen pelvis wo con CT ABDOMEN/PELVIS WITHOUT IV CONTRAST. INDICATION: left flank pain COMPARISON: There are no other studies available for comparison. TECHNIQUE: Contiguous axial images were obtained from the lung bases to the pelvic floor without intravenous or oral contrast. Coronal and sagittal reformations are provided. FINDINGS: LOWER LUNGS: Clear. LIVER/BILIARY TREE: There is a 2.1 cm cyst in the right hepatic lobe. No intrahepatic ductal dilatation. GALLBLADDER: Status post cholecystectomy . CBD: Normal CBD. SPLEEN: Normal in size. PANCREAS: No appreciable peripancreatic fluid. No pancreatic ductal dilatation. No discrete lesion. ADRENALS: Normal. KIDNEYS: Atrophic right kidney. No hydronephrosis. No radiopaque calculus. STOMACH AND BOWEL: Stomach is unremarkable. No dilated bowel loops. There is focal thickening and inflammation of the mid descending colon secondary to acute diverticulitis. No perforation or abscess. APPENDIX: Normal appendix. PERITONEAL CAVITY: There is mild stranding surrounding the mid descending colon.. ABDOMINAL WALL: No subcutaneous stranding. No subcutaneous fluid collection. LYMPH NODES: No mesenteric or retroperitoneal lymphadenopathy by CT criteria. ABDOMINAL AORTA: No aneurysm. PELVIS: No acute abnormality. MUSCULOSKELETAL: No acute osseous abnormality. CT/CT abdomen pelvis wo con IMPRESSION: Acute uncomplicated diverticulitis of the left colon. Electronically authenticated by: JOSE G LIN Date: 03/24/2024 19:15
[2024-03-24] MEDS: FAMOTIDINE/PF 20 MG/2 ML VIAL IV (17:46)
[2024-03-24] MEDS: KETOROLAC TROMETHAMINE 30 MG/ML VIAL 15 MG IVP (17:46)
--- NOTE | 2024-03-24 18:44 | ED_ITS ---
HPI - Abdominal Pain General Chief Complaint: Abdominal Pain Stated Complaint: left abdominal pain Time Seen by Provider: 03/24/24 17:23 Source: patient Mode of arrival: walk-in Limitations: no limitations History of Present Illness HPI narrative: The patient presented to us with a left-sided flank pain as well as left lower quadrant pain that been going on for at least few days, the patient have no dysuria no burning with urination no changes in bowel movement Related Data Home Medications ?Medication ?Instructions ?Recorded ?Confirmed alprazolam 0.25 mg tablet 0.25 mg PO DAILY 01/31/24 03/24/24 baclofen 10 mg tablet 10 mg PO BID 01/31/24 03/24/24 fluoxetine 40 mg capsule 40 mg PO DAILY 01/31/24 03/24/24 gabapentin 300 mg capsule 300 mg PO TID 01/31/24 03/24/24 trazodone 50 mg tablet 50 mg PO DAILY 01/31/24 03/24/24 folic acid 1 mg tablet 1 mg PO DAILY 03/24/24 03/24/24 Allergies Allergy/AdvReac Type Severity Reaction Status Date / Time diphenhydramine Allergy Mild Hives Verified 02/14/24 08:57 [From Benadryl] codeine Allergy Unknown Verified 02/14/24 08:57 Review of Systems ROS Status of ROS 10 or more systems reviewed and unremark able except as noted in history and below PFSH PFSH Medical History Anxiety ?F41.9 - Anxiety disorder, unspecified (ICD-10) H/O kidney disease ?Z87.448 - Personal history of other diseases of urinary system (ICD-10) Smoker ?F17.200 - Nicotine dependence, unspecified, uncomplicated (ICD-10) Surgical History Status post hip surgery ?Z98.890 - Other specified postprocedural states (ICD-10) H/O arthroscopy of shoulder ?Z98.890 - Other specified postprocedural states (ICD-10) H/O: ?Z98.891 - History of uterine scar from previous surgery (ICD-10) Social History Smoking status: Current every day smoker Exam Narrative Exam Narrative: Nurses notes and vital signs reviewed and patient is not hypoxic. General: Well-appearing and in no apparent distress. Skin: Warm, dry, no pallor noted. No rash. Head: Normocephalic, atraumatic. Neck: Supple, non-tender. Eye: Pupils are equal, round and EOMI. No scleral icterus. Ears, Nose, Mouth, and Throat: TM are clear, no nasal mucosal hypertrophy. Oral mucosa is moist, no posterior oropharynx erythema, uvula is mid-line Cardiovascular: Regular Rate and Rhythm without murmur, gallop or rub. Respiratory: No accessory muscle use or respiratory distress. Lungs are clear to auscultation, no wheezing, rales or rhonchi Chest Wall: no tenderness Back: No midline thoracic or lumbar vertebral tenderness. Left CVA tenderness Musculoskeletal: normal ROM, no calf or popliteal tenderness, no lower extremity edema/swelling GI: Abdomen is soft, non-distended. Normal bowel sounds. No masses appreciated. No tenderness to palpation. No rebound, guarding, or rigidity noted. Neurological: A&O x4. No cranial nerve dysfunction observed. No truncal ataxia. Moves all extremities. Sensation intact. Psychiatric: Cooperative and interactive. Normal mood and affect. Constitutional Vital Signs, click to edit/add: Last Vital Signs Temp 99.6 F 03/24/24 15:18 Pulse 91 H 03/24/24 15:18 Resp 17 03/24/24 15:18 BP 122/96 H 03/24/24 15:18 Pulse Ox 97 03/24/24 15:18 O2 Del Method Room Air 03/24/24 15:18 Course Vital Signs Vital signs: Vital Signs Temperature 99.6 F 03/24/24 15:18 Pulse Rate 91 H 03/24/24 15:18 Respiratory Rate 17 03/24/24 15:18 Blood Pressure 122/96 H 03/24/24 15:18 Pulse Oximetry 97 03/24/24 15:18 Oxygen Delivery Method Room Air 03/24/24 15:18 Temperature 99.6 F 03/24/24 15:18 Pulse Rate 91 H 03/24/24 15:18 Respiratory Rate 17 03/24/24 15:18 Blood Pressure 122/96 H 03/24/24 15:18 Pulse Oximetry 97 03/24/24 15:18 Oxygen Delivery Method Room Air 03/24/24 15:18 MDM - Abdominal Pain MDM Narrative Medical decision making narrative: The patient CBC and chemistry showed no acute pathology Urinalysis showed no UTI and the test is negative CT abdomen pelvis is pending awaiting the results the patient care will be transferred to Dr. Hammer Lab Data Labs: Lab Results 03/24/24 03/24/24 Range/Units 15:24 15:28 WBC 9.9 (4.0-11.0) 10^3/uL RBC 4.28 (4.20-5.40) 10^6/uL Hgb 14.1 (12.0-16.0) g/dL Hct 42.4 (36.0-48.0) % MCV 99.1 H (81.0-99.0) fL MCH 32.9 (26.7-34.0) pg MCHC 33.3 (29.9-35.2) g/dL RDW 13.5 (11.0-15.0) % Plt Count 257 (150-450) 10^3/uL MPV 11.2 (9.5-13.5) fL Neut % (Auto) 69.8 (43.0-75.0) % Lymph % (Auto) 19.5 L (20.5-60.0) % [place] % (Auto) 6.6 (1.7-12.0) % Eos % (Auto) 3.1 (0.9-7.0) % Baso % (Auto) 0.4 (0.2-2.0) % Neut # (Auto) 6.9 H (1.4-6.5) 10^3/uL Lymph # (Auto) 1.9 (1.2-3.8) 10^3/uL [place] # (Auto) 0.7 (0.3-0.8) 10^3/uL Eos # (Auto) 0.3 (0.0-0.7) 10^3/uL Baso # (Auto) 0.0 (0.0-0.1) 10^3/uL Abs Immat Gran (auto) 0.06 H (0.00-0.03) 10^3/uL Imm/Tot Granulo (auto) 0.6 H (0.0-0.5) % Sodium 139 (136-145) mmol/L Potassium 4.3 (3.5-5.1) mmol/L Chloride 105 (98-107) mmol/L Carbon Dioxide 22.3 (21.0-32.0) mmol/L Anion Gap 16.0 BUN 9.0 (7.0-18.0) mg/dL Creatinine 1.14 H (0.55-1.02) mg/dL Est GFR ( Amer) >60 (>=60) Est GFR (Non-Af Amer) 52 L (>=60) BUN/Creatinine Ratio 7.9 Glucose 94 (74-106) mg/dL Calcium 8.9 (8.5-10.1) mg/dL Total Bilirubin 0.4 (0.2-1.0) mg/dL Direct Bilirubin 0.1 (0.0-0.2) mg/dL AST 13 L (15-37) U/L ALT 24 (14-59) U/L Alkaline Phosphatase 87 (46-116) U/L Troponin I High Sens <4.0 L (4.0-51.3) pg/mL Total Protein 7.0 (6.4-8.2) g/dL Albumin 3.5 (3.4-5.0) g/dL Globulin 3.5 g/dL Albumin/Globulin Ratio 1.0 Lipase 24.0 (16.0-77.0) U/L Urine Color Yellow (YELLOW) Urine Clarity Clear (CLEAR) Urine pH 6.0 (5.0-9.0) Ur Specific [place] 1.020 (1.005-1.025) Urine Protein Negative (NEG/TRACE) mg/dL Urine Glucose (UA) Negative (NEGATIVE) mg/dL Urine Ketones Negative (NEGATIVE) mg/dL Urine Occult Blood Negative (NEGATIVE) Urine Nitrite Negative (NEGATIVE) Urine Bilirubin Negative (NEGATIVE) Urine Urobilinogen 1.0 (0.2-1.0) EU/dL Ur Leukocyte Esterase Negative (NEGATIVE) Urine HCG, Qual Negative (NEGATIVE) Discharge Plan Discharge Patient Disposition: Still a Patient
--- NOTE | 2024-03-24 19:33 | ED_ITS ---
HPI - Abdominal Pain General Chief Complaint: Abdominal Pain Stated Complaint: left abdominal pain Time Seen by Provider: 03/24/24 17:23 Source: patient Mode of arrival: walk-in Limitations: no limitations History of Present Illness HPI narrative: 43-year-old female presented to the emergency department and was initially seen by Dr. Francis and signed out to me after discussing the case with her thoroughly. Please see her full history and physical exam Related Data Home Medications ?Medication ?Instructions ?Recorded ?Confirmed alprazolam 0.25 mg tablet 0.25 mg PO DAILY 01/31/24 03/24/24 baclofen 10 mg tablet 10 mg PO BID 01/31/24 03/24/24 fluoxetine 40 mg capsule 40 mg PO DAILY 01/31/24 03/24/24 gabapentin 300 mg capsule 300 mg PO TID 01/31/24 03/24/24 trazodone 50 mg tablet 50 mg PO DAILY 01/31/24 03/24/24 folic acid 1 mg tablet 1 mg PO DAILY 03/24/24 03/24/24 Previous Rx's ?Medication ?Instructions ?Recorded ciprofloxacin HCl 500 mg tablet 500 mg PO Q12H #20 tabs 03/24/24 (Cipro) hydrocodone 5 mg-acetaminophen 325 1 tab PO Q6H PRN pain 5 days #20 03/24/24 mg tablet tabs metronidazole 500 mg tablet 500 mg PO TID #30 tabs 03/24/24 ondansetron 4 mg disintegrating 4 mg PO Q6H PRN nausea and 03/24/24 tablet vomiting #20 tabs Allergies Allergy/AdvReac Type Severity Reaction Status Date / Time diphenhydramine Allergy Mild Hives Verified 02/14/24 08:57 [From Benadryl] codeine Allergy Unknown Verified 02/14/24 08:57 PFSH PFSH Medical History Anxiety ?F41.9 - Anxiety disorder, unspecified (ICD-10) H/O kidney disease ?Z87.448 - Personal history of other diseases of urinary system (ICD-10) Smoker ?F17.200 - Nicotine dependence, unspecified, uncomplicated (ICD-10) Surgical History Status post hip surgery ?Z98.890 - Other specified postprocedural states (ICD-10) H/O arthroscopy of shoulder ?Z98.890 - Other specified postprocedural states (ICD-10) H/O: ?Z98.891 - History of uterine scar from previous surgery (ICD-10) Social History Smoking status: Current every day smoker Exam Constitutional Vital Signs, click to edit/add: Last Vital Signs Temp 99.6 F 03/24/24 15:18 Pulse 72 03/24/24 19:10 Resp 13 03/24/24 17:50 BP 122/68 03/24/24 19:00 Pulse Ox 97 03/24/24 19:10 O2 Del Method Room Air 03/24/24 15:18 Course Vital Signs Vital signs: Vital Signs Temperature 99.6 F 03/24/24 15:18 Pulse Rate 91 H 03/24/24 15:18 Respiratory Rate 17 03/24/24 15:18 Blood Pressure 122/96 H 03/24/24 15:18 Pulse Oximetry 97 03/24/24 15:18 Oxygen Delivery Method Room Air 03/24/24 15:18 Temperature 99.6 F 03/24/24 15:18 Pulse Rate 72 03/24/24 19:10 Respiratory Rate 13 03/24/24 17:50 Blood Pressure 122/68 03/24/24 19:00 Pulse Oximetry 97 03/24/24 19:10 Oxygen Delivery Method Room Air 03/24/24 15:18 MDM - Abdominal Pain MDM Narrative Medical decision making narrative: CT scan shows acute uncomplicated diverticulitis. She does not require admission to the hospital at this point. She was given IV Cipro and Flagyl and discharged home on same. Treatment diagnosis and follow-up were discussed with the patient. Differential Diagnosis Differential diagnosis: Likely abdominal pain, calculus of kidney, constipation, diverticulitis, gastroenteritis and small bowel obstruction Lab Data Attestation: I reviewed the patient's lab results. Labs: Lab Results 03/24/24 03/24/24 Range/Units 15:24 15:28 WBC 9.9 (4.0-11.0) 10^3/uL RBC 4.28 (4.20-5.40) 10^6/uL Hgb 14.1 (12.0-16.0) g/dL Hct 42.4 (36.0-48.0) % MCV 99.1 H (81.0-99.0) fL MCH 32.9 (26.7-34.0) pg MCHC 33.3 (29.9-35.2) g/dL RDW 13.5 (11.0-15.0) % Plt Count 257 (150-450) 10^3/uL MPV 11.2 (9.5-13.5) fL Neut % (Auto) 69.8 (43.0-75.0) % Lymph % (Auto) 19.5 L (20.5-60.0) % [place] % (Auto) 6.6 (1.7-12.0) % Eos % (Auto) 3.1 (0.9-7.0) % Baso % (Auto) 0.4 (0.2-2.0) % Neut # (Auto) 6.9 H (1.4-6.5) 10^3/uL Lymph # (Auto) 1.9 (1.2-3.8) 10^3/uL [place] # (Auto) 0.7 (0.3-0.8) 10^3/uL Eos # (Auto) 0.3 (0.0-0.7) 10^3/uL Baso # (Auto) 0.0 (0.0-0.1) 10^3/uL Abs Immat Gran (auto) 0.06 H (0.00-0.03) 10^3/uL Imm/Tot Granulo (auto) 0.6 H (0.0-0.5) % Sodium 139 (136-145) mmol/L Potassium 4.3 (3.5-5.1) mmol/L Chloride 105 (98-107) mmol/L Carbon Dioxide 22.3 (21.0-32.0) mmol/L Anion Gap 16.0 BUN 9.0 (7.0-18.0) mg/dL Creatinine 1.14 H (0.55-1.02) mg/dL Est GFR ( Amer) >60 (>=60) Est GFR (Non-Af Amer) 52 L (>=60) BUN/Creatinine Ratio 7.9 Glucose 94 (74-106) mg/dL Calcium 8.9 (8.5-10.1) mg/dL Total Bilirubin 0.4 (0.2-1.0) mg/dL Direct Bilirubin 0.1 (0.0-0.2) mg/dL AST 13 L (15-37) U/L ALT 24 (14-59) U/L Alkaline Phosphatase 87 (46-116) U/L Troponin I High Sens <4.0 L (4.0-51.3) pg/mL Total Protein 7.0 (6.4-8.2) g/dL Albumin 3.5 (3.4-5.0) g/dL Globulin 3.5 g/dL Albumin/Globulin Ratio 1.0 Lipase 24.0 (16.0-77.0) U/L Urine Color Yellow (YELLOW) Urine Clarity Clear (CLEAR) Urine pH 6.0 (5.0-9.0) Ur Specific [place] 1.020 (1.005-1.025) Urine Protein Negative (NEG/TRACE) mg/dL Urine Glucose (UA) Negative (NEGATIVE) mg/dL Urine Ketones Negative (NEGATIVE) mg/dL Urine Occult Blood Negative (NEGATIVE) Urine Nitrite Negative (NEGATIVE) Urine Bilirubin Negative (NEGATIVE) Urine Urobilinogen 1.0 (0.2-1.0) EU/dL Ur Leukocyte Esterase Negative (NEGATIVE) Urine HCG, Qual Negative (NEGATIVE) Imaging Data CT scan - abdomen: Radiologist's impression: ITS Impressions Abdomen/Pelvis CT 03/24/24 17:26 IMPRESSION: Acute uncomplicated diverticulitis of the left colon. Electronically authenticated by: JOSE G LIN Date: 03/24/2024 19:15 Discharge Plan Discharge Stand Alone Forms: Portal Instructions Chief Complaint: Abdominal Pain Clinical Impression: Acute diverticulitis Patient Disposition: Home, Self-Care Time of Disposition Decision: 19:29 Condition: Good Mode of Transportation: Private Vehicle Prescriptions / Home Meds: New ciprofloxacin HCl [Cipro] 500 mg tablet 500 mg PO Q12H Qty: 20 0RF metronidazole 500 mg tablet 500 mg PO TID Qty: 30 0RF hydrocodone-acetaminophen 5-325 mg tablet 1 tab PO Q6H PRN (Reason: pain) 5 Days Qty: 20 0RF ondansetron 4 mg tablet,disintegrating 4 mg PO Q6H PRN (Reason: nausea and vomiting) Qty: 20 0RF No Action fluoxetine 40 mg capsule 40 mg PO DAILY trazodone 50 mg tablet 50 mg PO DAILY gabapentin 300 mg capsule 300 mg PO TID Rx Instructions: DISP# 120 1 TAB IN THE AM 1 TAB IN THE AFTERNOON 2 TABS AT BEDTIME alprazolam 0.25 mg tablet 0.25 mg PO DAILY baclofen 10 mg tablet 10 mg PO BID folic acid 1 mg tablet 1 mg PO DAILY Print Language: Kiswahili Instructions: Diverticulitis (ED), Diverticulitis Diet (ED) Referrals: Shaikh Millan MD [Primary Care Provider] - 1 week
[2024-03-24] MEDS: CIPROFLOXACIN IN 5 % DEXTROSE 400 MG/200 ML PIGGYBACK 200 MG IV (19:41)
[2024-03-24] MEDS: MORPHINE SULFATE 4 MG/ML VIAL IV (20:45)
[2024-03-24] MEDS: METRONIDAZOLE/SODIUM CHLORIDE 500 MG/100 ML PREMIX 100 MG IV (20:45)
== END 2024-03-24 21:55 | disposition home or self-care (01) ==
PROVIDERS: Emergency Medicine; Emergency Provider Emergency Medicine; PCP Internal Medicine
DX: K57.32 Diverticulitis of large intestine without perforation or abscess without bleeding (principal)
CPT/HCPCS: 36415; 74176; 80053; 80076; 81003; 83690; 84484; 84703; 85025; 93005; 96365; 96367; 96375; 99285

== ENCOUNTER 2024-06-26 16:57 | Outpatient (OUT) | payer OTHER, SELFPAY ==
--- NOTE | 2024-06-26 | XR_ITS ---
[address] [address] Patient Name: ROSELIA LO MRN: [id number] date: 1980 Sex: F Assigned Patient Location: [facility] Current Patient Location: Accession/Order Number: [id number] Exam Date: 06/26/2024 17:05 Report Date: 06/27/2024 10:06 At the request of: LISA KNIGHT Procedure: XR ribs RT min 3V w CXR1V EXAMINATION: XR ribs RT min 3V w CXR1V HISTORY: Rt Rib pain ; upper right rib pain; no known injury COMPARISON: XR chest 10/03/2010 FINDINGS: LUNGS: No significant pulmonary parenchymal abnormalities. PLEURA: No pneumothorax, effusion, or pleural thickening. MEDIASTINUM: No visible mass or adenopathy. CARDIAC: No cardiomegaly or cardiac silhouette abnormality. RIBS: Normal. No significant arthropathy or acute abnormality. OTHER: Negative. XR/XR ribs RT min 3V w CXR1V IMPRESSION: 1. No appreciable rib fracture or suspicious abnormality. 2. No acute cardiopulmonary process. Electronically authenticated by: NOEL LEIVA Date: 06/27/2024 10:06
--- OUTSIDE RECORDS SUMMARY | 2024-06-26 17:07 | XMS_ITS | CCD ---
Author Organization [facility] Care Team Providers Care Meal Attendant Name Role Phone UNKNOWN, PHYSICIAN Referring Unavailable UNKNOWN, PHYSICIAN Primary Care Unavailable EBRAHEIM, OLE Attending Unavailable EBRAHEIM, OLE Admitting Unavailable AICHHOLZ, GALVANIZER AINSLEY Admitting Unavailable SVETA, DR TESS Eaton Consulting Unavailable AICHHOLZ, GALVANIZER AINSLEY Attending Unavailable AICHHOLZ, GALVANIZER AINSLEY Primary Care Unavailable AICHHOLZ, GALVANIZER AINSLEY Consulting Unavailable AICHHOLZ, GALVANIZER AINSLEY Primary Care Unavailable AICHHOLZ, GALVANIZER AINSLEY Admitting Unavailable AICHHOLZ, GALVANIZER AINSLEY Attending Unavailable AICHHOLZ, GALVANIZER AINSLEY Primary Care Unavailable HELIO, DR RANDOLPH Mehta Admitting Unavailable HELIO, DR RANDOLPH Mehta Attending Unavailable HELIO, DR RANDOLPH Mehta Consulting Unavailable HELIO, DR RANDOLPH Mehta Admitting Unavailable YOLANDA, DR NEVAREZ Primary Care Unavailable HELIO, DR RANDOLPH Mehta Attending Unavailable HELIO, DR RANDOLPH Mehta Consulting Unavailable AICHHOLZ, GALVANIZER AINLSEY Primary Care Unavailable AICHHOLZ, GALVANIZER AINSLEY Admitting Unavailable AICHHOLZ, GALVANIZER AINSLEY Attending Unavailable AICHHOLZ, GALVANIZER AINSLEY Consulting Unavailable Aicha Shankar Unavailable AICHARMANDZ, AINSLEY J Primary Care Unavailable DIDI TAYLOR. Attending Unavailable DIDI TAYLOR. Attending Unavailable BRANDON, DIDI Martinez. Referring Unavailable AICHHOLZ, AINSLEY J Primary Care Unavailable BRANDON, DIDI E. Attending Unavailable MARGARETHTO, DIDI E. Referring Unavailable AICHHOLZ, AINSLEY J Primary Care Unavailable Aichholz DECORATING MACHINE TENDER-FADI, Ainsley J Primary Care Provider ANTONIA, AINSLEY J Referring Unavailable AICHHOLZ, AINSLEY J Primary Care Unavailable AICHHOLZ, AINSLEY J Referring Unavailable AICHHOLZ, AINSLEY J Primary Care Unavailable Aichholz, Ainsley J Primary Care Provider [phone] MD Say Summers Attending Provider Say Summers Attending Unavailable Ainsley Sellers Primary Care Unavailable Say Summers Admitting Unavailable Say Summesr Admitting Unavailable Say Summers Attending Unavailable Ainsley Sellers Primary Care Unavailable AINSLEY SELLERS Attending Unavailable AINSLEY SELLERS Attending Unavailable SWETA BRIGGS Attending Unavailable SWETA BRIGGS Referring Unavailable AINSLEY SELLERS Attending Unavailable RENA SMITH Attending Unavailable SAY SUMMERS Referring Unavailable AINSLEY SELLERS Attending Unavailable RENA SMITH Attending Unavailable SAY SUMMERS Referring Unavailable ODALIS DUARTE Attending Unavailable SAY SUMMERS Referring Unavailable STEPAN NGO Attending Unavailable SUMMERS, SAY Referring Unavailable ODALIS DUARTE Attending Unavailable SAY SUMEMRS Referring Unavailable AINSLEY SELLERS Attending Unavailable AINSLEY SELLERS Attending Unavailable SHAIKH PÉREZ Attending Unavailable AINSLEY SELLERS Attending Unavailable Allergies Allergy Classification Reported Allergen(s) Allergy Type Date of Onset Reaction(s) Facility diphenhydrAMINE (1 source) diphenhydrAMINE; Translations: [BENADRYL] Drug Allergy 08-19-20 10 [facility] Repository (7 sources) Codeine; Translations: [CODEINE] Drug Allergy 05-30-20 13 Seizures [facility] Repository (1 source) diphenhydrAMINE Drug Allergy 05-30-20 13 [facility] Repository (4 sources) Codeine Drug Allergy 05-06-20 17 [place] Other (6 sources) diphenhydrAMINE Drug Allergy 02-24-20 24 [facility] (4 sources) diphenhydrAMINE; Translations: [DIPHENHYDRAMINE HCL] Drug Allergy 05-06-20 17 [facility] Repository (1 source) Codeine Drug Allergy 05-28-20 24 [facility] Repository (1 source) diphenhydrAMINE Drug Allergy 05-28-20 24 [facility] Repository Medications Current Medications Medication Drug Class(es) Dates Sig (Normalized) Sig (Original) acetaminophen 500 mg oral tablet (2 sources) Start: 04-16-2024 take 1 tablet by mouth every six hours Acetaminophen (Tylenol Extra Strength) 500 mg tablet Active 500 MG PO Every 6 hours April 16, 2024 12:00am ALPRAZolam 0.25 mg oral tablet (8 sources) Benzodiazepine Start: 01-01-2024 take 0.25 mg by mouth once daily Alprazolam Active 0.25 MG PO Daily January 01, 2024 1:00am Start: 01-01-2024 Alprazolam Act lali MG PO January 01, 2024 1:00am Start: 03-18-2023 take 1 tablet by kaushal th once daily as needed for anxiety ALPRAZolam (XANAX) 0.25 mg tablet TAKE 1 TABLET BY MOUTH EVERY DAY NEEDED FOR ANXIETY 0 03/18/2023 Active ALPRAZolam Activ e cephalexin 500 mg oral capsule (1 source) Cephalosporin Antibacterial Start: 05-28-2024 take 500 mg by mouth three times daily Cephalexin Active 500 MG PO Three times daily May 28, 2024 12:00am cyclobenzaprine hydrochloride 10 mg oral tablet (5 sources) Muscle Relaxant Start: 05-28-2024 take 10 mg by mouth three times daily Cyclobenzaprine Active 10 MG PO Three times daily May 28, 2024 12:00am Start: 01-01-2024 End: 04-16-2024 take 10 mg by mouth three times daily Cyclobenzaprine Discontinued 10 MG PO Three times daily January 01, 2024 1:00am April 16, 2024 2:05pm dexamethasone 4 mg oral tablet (1 source) Corticosteroid Start: 12-24-2022 take 1 tablet by mouth every twenty-four hours Dexamethasone 4 MG 1 tablet Orally Once a day for 5 days Dec, Active dextromethorphan hydrobromide 1.5 mg/ml / pyrilamine maleate 1.5 mg/ml oral solution (1 source) Uncompetitive M-vnekms-D-asparta te Receptor Antagonist, Sigma-1 Agonist Start: 12-24-2022 Hollins DM 7.5-7.5 MG/5ML 10 ml Orally every 6-8 hours as needed for 8 days Dec, Active FLUoxetine 20 mg oral capsule (6 sources) Serotonin Reuptake Inhibitor Start: 01-01-2024 take 40 mg by mouth once daily Fluoxetine Active 40 MG PO Daily January 01, 2024 1:00am FLUoxetine (PROz ac) 20 mg capsule Take 30 mg by mouth in the morning. 0 Active fluticasone propionate 0.05 mg/actuat metered dose nasal spray (1 source) Corticosteroid Start: 12-24-2022 take 1 spray(s) nasal route once daily Fluticasone Propionate 50 MCG/ACT 1 spray in each nostril Nasally Once a day for 21 days Dec, Active folic acid 1 mg oral tablet (2 sources) Start: 04-16-2024 take 1 mg by mouth once daily Folic Acid Active 1 MG PO Daily April 16, 2024 12:00am gabapentin 300 mg oral capsule (12 sources) Anti-epileptic Agent Start: 02-24-2024 take 300 [...] as needed for 4 days Dec, Active oxyCODONE hydrochloride 5 mg oral tablet (1 source) Opioid Agonist Start: 024 take 5-10 mg by mouth every six hours Oxycodone Active 5 - 10 MG PO Q6H 40 8 May 28, 2024 Prednisone (5 sources) Start: 024 Prednisone Active 1 dose pk PO per package directions May 28, 2024 12:00am take 4 tabs for 3 days then take 3 tabs for 3 days then take 2 tabs for 3 days then take 1 tab for 3 days Start: 01-01-2024 End: 04-16-2024 take 20 mg by mouth twice daily Prednisone Discontinued 20 MG PO Twice daily 10 5 January 01, 2024 1:00am April 16, 2024 2:04pm Start this prescription on January 01. sertraline 50 mg oral tablet (1 source) Serotonin Reuptake Inhibitor Sertraline HCl 50 MG TAKE 1 AND 1/2 TABLETS BY MOUTH DAILY Oral for 90 Days Active traZODone hydrochloride 50 mg oral tablet (5 sources) Serotonin Reuptake Inhibitor Start: 4 take 50 mg by mouth once daily at bedtime Trazodone Active 50 MG PO Daily at bedtime January 01, 2024 1:00am Start: 01-01-2024 Trazodone Acti ve MG PO January 01, 2024 1:00am Start: 10-19-2023 End: 11-18-2023 take 1 tablet by mouth once daily traZODone (DESYREL) 50 mg tablet Take 1 tablet (50 mg total) by mouth nightly. 0 10/19/2023 11/18/2023 Active Completed/Discontinued Medications Medication Drug Class(es) Dates Sig (Normalized) Sig (Original) baclofen 10 mg oral tablet (2 sources) gamma-Aminobu tyric Acid-ergic Agonist Start: End: 4 take 10 mg by mouth twice daily Baclofen Discontinued 10 MG PO Twice daily April 16, 2024 12:00am May 28, 2024 11:39am 1 ml medroxyPROGESTERone acetate 150 mg/ml injection (2 sources) Progestin Start: End: medroxyPROGESTERone (DEPO-PROVERA) injection 150 mg Start: 12-22-2023 End: 12-22-2023 medroxyPROGESTERone (DEPO-KY OVERA) injection 150 mg Problems Active Problems [...] DISC DEGEN LUMBOSACRAL RGN] Onset: 11-24-2021 Chronic Spondylosis; intervertebral disc disorders; other back problems (8 sources) Lumbar disc prolapse with radiculopathy; Translations: [Intervertebral disc disorders with radiculopathy, lumbar region] Onset: 05-28-2024 02-24-2024 Episodic Substance-related disorders (3 sources) Nicotine dependence, cigarettes, [...] 04-26-2023 04-26-2023 Other aftercare (1 source) Other longterm (current) drug therapy; Translations: [OTH SHELTER CURRENT DRUG THERAPY] Onset: 02-01-2022 Episodic Other [...] Test Name Value Interpretation Reference Range Facility HCG ( test) Javon d Ql (U)Ordered By: Christos Ellsworth on 05-28-2024 HCG ( test) Ql (U) Negative [facility] HCG,Urineon 05-28-2024 Beta HCG ( test) Ql (U) Negative Normal [facility] Comment on above: Result Comment: PERF ORMED BY: [place] [address] PATHOLOGIST ANILINE PRESS WORKER ARACELI HOLLEY M.D. Performed By: #### U HCG #### [address] XR lumbar spine 1Von 2 024 XR lumbar spine 1V [facility] [address] XRay Report Signed Patient: Simona Lo MR#: [id number] : 1980 Acct:[id number] Age/Sex: 43 / F ADM Date: 05/28/24 Loc: [place] Room: Type: [facility] Attending Dr: Say Summers MD Copies to: Say Summers MD Ordering Provider: Say Summers MD Date of Service: 05/28/24 XR/XR lumbar spine 1V: / XR lumbar spine 1V 05/28/2024 11:27 AM SIGNS AND SYMPTOMS: Lumbar discectomy L5-S1 PROTOCOLS: Intraoperative view of the lumbar spine COMPARISON: None FINDINGS: An intraoperative view of the lumbar spine demonstrate hardware localization posteriorly at the level of the L5-S1 intervertebral disc. Cumulative Air Kerma in mGy: 0.656 mGy XR/XR lumbar spine 1V IMPRESSION: An intraoperative view of the lumbar spine demonstrate hardware localization posteriorly at the level of the L5-S1 intervertebral disc. Impression dictated by: Randolph Hoffman M.D.05/28/2024 1:40 PM Dictation Location: [place] [address] Transcribed By: [facility] 05/28/24 1340 Dictated By: Randolph Hoffman II, MD 05/28/24 1339 Signed By: 05/28/24 1340 Normal [facility] Automated basophil %Ordered By: Say Summers on 04-16-2024 Basophils/100 WBC (Bld) 0.3 % Normal . [facility] Comment on above: Performed By: #### C GOKUL, BMP #### [address] Automated basophil countOrde red By: Say Summers on 04-16-2024 Basophils (Bld) [#/Vol] 0.0 10*3/uL Normal 0.0-0.2 [facility] Comment on above: Result Comment: PERF ORMED BY: [place] [address] PATHOLOGIST ANILINE PRESS WORKER ARACELI HOLLEY M.D. Performed By: #### C GOKUL, BMP #### [address] Automated blood monocyte cou ntOrdered By: Say Summers on 04-16-2024 Monocytes (Bld) [#/Vol] 0.7 10*3/uL Normal 0.0-0.8 [facility] Comment on above: Performed By: #### C GOKUL, BMP #### [address] Automated eosinophil %Ordere d By: Sya Summers on 04-16-2024 Eosinophils/100 WBC (Bld) 6.3 % Normal . [facility] Comment on above: Performed By: #### C BC, BMP #### [address] Automated eosinophil countOr dered By: Say Summers on 04-16-2024 Eosinophils (Bld) [#/Vol] 0.5 10*3/uL High 0.0-0.45 [facility] Comment on above: Performed By: #### C BC, BMP #### [address] Automated monocyte %Ordered By: Say Summers on 04-16-2024 Monocytes/100 WBC (Bld) 8.7 % Normal . [facility] Comment on above: Performed By: #### C BC, BMP #### [address] Automated neutrophil %Ordere d By: Say Summers on 04-16-2024 Neutrophils/100 WBC (Bld) 62.7 % Normal . [facility] Comment on above: Performed By: #### C BC, BMP #### [address] Basic Metabolic Panelon 03-31 GFR/1.73 sq M.predicted MDRD (S/P/Bld) [Vol rate/Area] 52.325 mL/min/{1.73_m2} Normal [facility] Comment on above: Performed By: #### C BC, BMP #### [address] Calcium [Mass/volume] in Ser um or PlasmaOrdered By: Say Summers on 04-16-2024 Calcium [Mass/Vol] 8.8 mg/dL Normal 8.6-10.3 [facility] Comment on above: Result Comment: PERF ORMED BY: [place] [address] PATHOLOGIST ANILINE PRESS WORKER ARACELI HOLLEY M.D. Performed By: #### C BC, BMP #### [address] Carbon dioxide, total [Moles /volume] in Serum or PlasmaOrdered By: Say Summers on 04-16-2024 CO2 [Moles/Vol] 25.6 mmol/L Normal 21.0-31.0 [facility] Comment on above: Performed By: #### C BC, BMP #### [address] Chloride [Moles/volume] in S ramos or PlasmaOrdered By: Say Summers on 04-16-2024 Chloride [Moles/Vol] 106 mmol/L Normal 98-107 [facility] Comment on above: Performed By: #### C BC, BMP #### [address] Complete Blood Count Auto Di ffon 04-16-2024 Mean Corpuscular HGB Conc 33.9 g/dL Normal 32.0-35.0 [facility] Comment on above: Performed By: #### C BC, BMP #### [address] NRBC% 0.1 /100{WBC} Normal 0-0.5 [facility] Comment on above: Performed By: #### C BC, BMP #### [address] Creatinine [Mass/volume] in Serum or PlasmaOrdered By: Say Summers on 04-16-2024 Creatinine [Mass/Vol] 1.30 mg/dL High 0.60-1.20 [facility] Comment on above: Performed By: #### C BC, BMP #### [address] Erythrocyte distribution wid th [Ratio] by Automated countOrdered By: Say Summers on 04-16-2024 Erythrocyte distribution width (RBC) [Ratio] 13.6 % Normal 11.9-15.3 [facility] Comment on above: Performed By: #### C BC, BMP #### [place] [address] [place] Erythrocytes [#/volume] in B lood by Automated countOrdered By: Say Summers on 04-16-2024 RBC (Bld) [#/Vol] 4.10 10*6/uL Normal 3.60-5.00 [facility] Comment on above: Performed By: #### C GOKUL, BMP #### [address] Glucose [Mass/volume] in Ser um or PlasmaOrdered By: Say Summers on 04-16-2024 Glucose [Mass/Vol] 63 mg/dL Low 70-100 [facility] Comment on above: ADA recommended refe rence rangeRandom Glucose Reference Range is dependent on time and content of last meal. Glucose of more than 200 mg/dL in a nonstressed, ambulatory subject supports the diagnosis of Diabetes Mellitus. Result Comment: [place] om Glucose Reference Range is dependent on time and content of last meal. Glucose of more than 200 mg/dL in a nonstressed, ambulatory subject supports the diagnosis of Diabetes Mellitus. ADA recommended reference range Performed By: #### C GOKUL, BMP #### [address] Hematocrit [Volume Fraction] of Blood by Automated countOrdered By: Say Summers on 04-16-2024 Hematocrit (Bld) [Volume fraction] 40.2 % Normal 34.0-46.4 [facility] Comment on above: Performed By: #### C GOKUL, BMP #### [address] Hemoglobin [Mass/volume] in BloodOrdered By: Say Summers on 04-16-2024 Hemoglobin (Bld) [Mass/Vol] 13.6 g/dL Normal 11.8-15.4 [facility] Comment on above: Performed By: #### C GOKUL, BMP #### [address] Leukocytes [#/volume] correc tabatha for nucleated erythrocytes in Blood by Automated counOrdered By: Say Summers on 04-16-2024 WBC corrected for nucl RBC Auto (Bld) [#/Vol] 8.3 10*3/uL 3.8-11.6 [facility] Leukocytes [#/volume] in Blo od by Automated countOrdered By: Say Summers on 04-16-2024 WBC (Bld) [#/Vol] 8.3 10*3/uL Normal 3.8-11.6 [facility] Comment on above: Performed By: #### C BC, BMP #### [place] [address] [place] Lymphocytes [#/volume] in Bl ood by Automated countOrdered By: Say Summers on 04-16-2024 Lymphocytes (Bld) [#/Vol] 1.8 10*3/uL Normal 1.00-4.8 [facility] Comment on above: Performed By: #### C BC, BMP #### [place] [address] [place] Lymphocytes/100 leukocytes i n Blood by Automated countOrdered By: Say Summers on 04-16-2024 Lymphocytes/100 WBC (Bld) 22.0 % Normal . [facility] Comment on above: Performed By: #### C BC, BMP #### [place] [address] [place] MCH [Entitic mass] by Automa tabatha countOrdered By: Say Summers on 04-16-2024 MCH (RBC) [Entitic mass] 33.3 pg Normal 24.7-34.3 [facility] Comment on above: Performed By: #### C BC, BMP #### [address] MCHC Auto (RBC) [Mass/Vol]Or dered By: Say Summers on 04-16-2024 MCHC (RBC) [Mass/Vol] 33.9 g/dL 32.0-35.0 [facility] MCV [Entitic volume] by Auto mated countOrdered By: Say Summers on 04-16-2024 MCV (RBC) [Entitic vol] 98.2 fL Normal 80-100 [facility] Comment on above: Performed By: #### C BC, BMP #### [place] [address] [place] Neutrophils [#/volume] in Bl ood by Automated countOrdered By: Say Summers on 04-16-2024 Neutrophils (Bld) [#/Vol] 5.2 10*3/uL Normal 1.8-7.7 [facility] Comment on above: Performed By: #### C BC, BMP #### [address] No Panel InformationOrdered By: Say Summers on 04-16-2024 Estimated GFR (CKD-EPI) 52.325 mL/Min [facility] Creatinine Clearance (Chem N/A [facility] Nucleated erythrocytes [Pres ence] in Blood by Automated countOrdered By: Say Summers on 04-16-2024 Nucleated RBC Auto Ql (Bld) 0.1 /100{WBC} 0-0.5 [facility] Platelet mean volume [Entiti c volume] in Blood by Automated countOrdered By: Say Summers on 04-16-2024 Platelet mean volume (Bld) [Entitic vol] 9.3 fL Normal 6.3-10.7 [facility] Comment on above: Performed By: #### C BC, BMP #### [address] Platelets [#/volume] in Bloo d by Automated countOrdered By: Say Summers on 04-16-2024 Platelets (Bld) [#/Vol] 205 10*3/uL Normal 150-450 [facility] Comment on above: Performed By: #### C BC, BMP #### [address] Potassium [Moles/volume] in Serum or PlasmaOrdered By: Say Summers on 04-16-2024 Potassium [Moles/Vol] 4.3 mmol/L Normal 3.5-5.1 [facility] Comment on above: Performed By: #### C BC, BMP #### [address] Serum or plasma anion gap de terminationOrdered By: Say Summers on 04-16-2024 Anion gap [Moles/Vol] 11.7 mmol/L Normal 6.0-15.0 [facility] Comment on above: Performed By: #### C BC, BMP #### [facility] [address] Sodium [Moles/volume] in Ser um or PlasmaOrdered By: Say Summers on 04-16-2024 Sodium [Moles/Vol] 139 mmol/L Normal 136-145 [facility] Comment on above: Performed By: #### C BC, BMP #### [facility] [address] Urea nitrogen [Mass/volume] in Serum or PlasmaOrdered By: Say Summers on 04-16-2024 Urea nitrogen [Mass/Vol] 12 mg/dL Normal 7-25 [facility] Comment on above: Performed By: #### C BC, BMP #### [facility] [address] CBC AND AUTO DIFFon 10-28-20 ABSOLUTE BASOPHIL 0.1 X10E9/L Normal 0.0-0.2 [facility] Comment on above: Performed By: #### 1 9, , CBCA, CMP, 30097-4 #### [facility] ([id number]) [address] [place] [address] ABSOLUTE NEUTROPHIL 10.5 X10E9/L High 1.5-6.6 [facility] Comment on above: Performed By: #### 1 9, , CBCA, CMP, 10131-0 #### [facility] ([id number]) [address] [place] [address] 22982 Basophils/100 WBC (Bld) 0.4 % Normal [facility] Comment on above: Performed By: #### 1 399, , CBCA, CMP, 49505-2 #### [facility] ([id number]) [address] [place] [address] 10903 Eosinophils (Bld) [#/Vol] 0.3 10*3/uL Normal 0.0-0.4 [facility] Comment on above: Performed By: #### 1 9, , CBCA, CMP, 30914-5 #### [facility] ([id number]) [address] [place] [address] 85167 Eosinophils/100 WBC (Bld) 2.2 % Normal [facility] Comment on above: Performed By: #### 1 9, , CBCA, CMP, 58996-0 #### [facility] ([id number]) [address] [place] [address] Erythrocyte distribution width (RBC) [Ratio] 15.2 % High 11.5-15.0 [facility] Comment on above: Performed By: #### 1 9, , CBCA, CMP, 72490-0 #### [facility] ([id number]) [address] [place] [address] Hematocrit (Bld) [Volume fraction] 42.7 % Normal 35-47 [facility] Comment on above: Performed By: #### 1 9, , CBCA, CMP, 81173-2 #### [facility] ([id number]) [address] [place] [address] 79674 Hemoglobin (Bld) [Mass/Vol] 14.6 g/dL Normal 11.7-15.5 [facility] Comment on above: Performed By: #### 1 9, , CBCA, CMP, 43997-7 #### [facility] ([id number]) [address] [place] [address] 17488 Lymphocytes (Bld) [#/Vol] 1.7 10*3/uL Normal 1.0-3.5 [facility] Comment on above: Performed By: #### 1 399, , CBCA, CMP, 57560-7 #### [facility] ([id number]) [address] [place] [address] 85289 Lymphocytes/100 WBC (Bld) 12.8 % Normal [facility] Comment on above: Performed By: #### 1 9, , CBCA, CMP, 43230-8 #### [facility] ([id number]) [address] [place] [address] 76028 MCH (RBC) [Entitic mass] 33.8 pg Normal 27-34 [facility] Comment on above: Performed By: #### 1 838-9, , CBCA, CMP, 07957-3 #### [facility] ([id number]) [address] [place] [address] 03623 MCHC (RBC) [Mass/Vol] 34.3 g/dL Normal 32-36 [facility] Comment on above: Performed By: #### 1 9, , CBCA, CMP, 81996-2 #### [facility] ([id number]) [address] [place] [address] 73103 MCV (RBC) [Entitic vol] 99 fL Normal 80-100 [facility] Comment on above: Performed By: #### 1 9, , CBCA, CMP, 73405-7 #### [facility] ([id number]) [address] [place] [address] 09853 Monocytes (Bld) [#/Vol] 0.8 10*3/uL Normal 0-0.9 [facility] Comment on above: Performed By: #### 1 9, , CBCA, CMP, 37600-2 #### [facility] ([id number]) [address] [place] [address] 63710 Monocytes/100 WBC (Bld) 5.7 % Normal [facility] Comment on above: Performed By: #### 1 0839-9, , CBCA, CMP, 11873-3 #### [facility] ([id number]) [address] [place] [address] 98958 Neutrophils/100 WBC (Bld) 78.9 % Normal [facility] Comment on above: Performed By: #### 1 0839-9, 53855-9, CBCA, CMP, 59559-8 #### [facility] ([id number]) [address] [place] [address] 21700 Platelet mean volume (Bld) [Entitic vol] 8.6 fL Normal 7-12 [facility] Comment on above: Performed By: #### 1 0839-9, , CBCA, CMP, 13035-5 #### [facility] ([id number]) [address] [place] [address] 07990 Platelets (Bld) [#/Vol] 247 10*3/uL Normal 150-450 [facility] Comment on above: Result Comment: PLAT ELETS REVIEWED Performed By: #### 1 0839-9, , CBCA, CMP, 83045-0 #### [facility] ([id number]) [address] [place] [address] 76861 RBC COUNT 4.32 X10E12/L Normal 3.80-5.20 [facility] Comment on above: Performed By: #### 1 0839-9, , CBCA, CMP, 41502-5 #### [facility] ([id number]) [address] [place] [address] 01426 WBC (Bld) [#/Vol] 13.3 10*3/uL High 4.0-11.0 [facility] Comment on above: Performed By: #### 1 0839-9, 60929-1, CBCA, CMP, 64280-5 #### [facility] ([id number]) [address] [place] [address] [place] [address] COMPREHENSIVE METABOLIC PANE [facility] 10-28-2023 Albumin [Mass/Vol] 4.0 g/dL Normal 3.2-5.3 [facility] Comment on above: Performed By: #### 1 0839-9, 42356-2, CBCA, CMP, 20803-0 #### [facility] ([id number]) [address] [place] [address] 71874 ALP [Catalytic activity/Vol] 76 U/L Normal 39-130 [facility] Comment on above: Performed By: #### 1 39-9, , CBCA, CMP, 26027-5 #### [facility] ([id number]) [address] [place] [address] 16258 ALT [Catalytic activity/Vol] 18 U/L Normal 0-31 [facility] Comment on above: Performed By: #### 1 39-9, , CBCA, CMP, 32125-7 #### [facility] ([id number]) [address] [place] [address] 44174 Anion gap [Moles/Vol] 3 mmol/L Low 5-15 [facility] Comment on above: Performed By: #### 1 39-9, , CBCA, CMP, 92083-0 #### [facility] ([id number]) [address] [place] [address] 22865 AST [Catalytic activity/Vol] 20 U/L Normal 0-41 [facility] Comment on above: Performed By: #### 1 0839-9, , CBCA, CMP, 77129-9 #### [facility] ([id number]) [address] [place] [address] 77642 Bilirubin [Mass/Vol] 0.8 mg/dL Normal 0.3-1.2 [facility] Comment on above: Performed By: #### 1 0839-9, , CBCA, CMP, 69758-2 #### [facility] ([id number]) [address] [place] [address] 10006 Calcium [Mass/Vol] 8.6 mg/dL Normal 8.5-10.5 [facility] Comment on above: Performed By: #### 1 0839-9, , CBCA, CMP, 96352-6 #### [facility] ([id number]) [address] [place] [address] 30175 Chloride [Moles/Vol] 113 mmol/L High 98-109 [facility] Comment on above: Performed By: #### 1 08399, , CBCA, CMP, 59868-9 #### [facility] ([id number]) [address] [place] [address] 24373 CO2 [Moles/Vol] 22 mmol/L Normal 22-32 [facility] Comment on above: Performed By: #### 1 08399, , CBCA, CMP, 92124-4 #### [facility] ([id number]) [address] [place] [address] 51462 Creatinine [Mass/Vol] 1.15 mg/dL High 0.40-1.00 [facility] Comment on above: Result Comment: METH OD TRACEABLE TO IDMS STANDARD Performed By: #### 1 08399, , CBCA, CMP, 73967-9 #### [facility] ([id number]) [address] [place] [address] 73576 GFR/1.73 sq M.predicted among non-blacks MDRD (S/P/Bld) [Vol rate/Area] 61 mL/min/{1.73_m2} Normal >59 [facility] Comment on above: Result Comment: Reported eGFR is based on the CKD-EPI 2020 equation that does not use a race coefficient. Performed By: #### 1 0839-9, , CBCA, CMP, 50075-3 #### [facility] ([id number]) [address] [place] [address] 47132 Glucose [Mass/Vol] 84 mg/dL Normal 65-99 [facility] Comment on above: Performed By: #### 1 39-9, , CBCA, CMP, 43793-3 #### [facility] ([id number]) [address] [place] [address] 32485 Potassium [Moles/Vol] 4.7 mmol/L Normal 3.5-5.0 [facility] Comment on above: Performed By: #### 1 838-9, , CBCA, CMP, 21702-7 #### [facility] ([id number]) [address] [place] [address] 14252 Protein [Mass/Vol] 6.9 g/dL Normal 6.0-8.0 [facility] Comment on above: Performed By: #### 1 0839-9, , CBCA, CMP, 66686-4 #### [facility] ([id number]) [address] [place] [address] 13128 Sodium [Moles/Vol] 138 mmol/L Normal 134-146 [facility] Comment on above: Performed By: #### 1 08399, , CBCA, CMP, 26488-7 #### [facility] ([id number]) [address] [place] [address] 04719 Urea nitrogen [Mass/Vol] 12 mg/dL Normal 5-23 [facility] Comment on above: Performed By: #### 1 0839-9, , CBCA, CMP, 02785-4 #### [facility] ([id number]) [address] [place] [address] BRAIN WO CONTon 3 CT BRAIN [...] dose to as low as reasonably achievable. Workstation:[employer] 3 Finalized by Ronni Roblero MD on 10/28/2023 5:13 PM Normal [facility] Fibrin D-dimer DDU (PPP) [Ma ss/Vol]on 10-28-2023 D DIMER <150 Normal <255 [facility] Comment on above: Result Comment: Results <255 ng/mL DDU: The presence of a VTE can safely be excluded with a negative D-Dimer result and Wells score. A negative result doesn't exclude the possibility of DIC. The test be repeated along with other diagnostic tests if the patient's symptoms persist or worsen. [email or web address] Performed By: #### 1 0839-9, 82830-8, CBCA, CMP, 15375-9 #### [facility] ([id number]) [address] [place] [address] 43176 MAGNESIUMon 10-28-2023 Magnesium [Mass/Vol] 2.0 mg/dL Normal 1.8-2.6 [facility] Comment on above: Performed By: #### 1 0839-9, 92092-0, CBCA, CMP, 82204-5 #### [facility] ([id number]) [address] [place] [address] 60681 SARS/FLU A+B/RSV by NAAT/Mol ecularon 10-28-2023 SARS/FLU [...] operators who are performing tests using either [employer] or [employer] systems and is limited to laboratories that [...] specimen repeat. Fact Sheet for Healthcare Providers: https://www.fda.gov /media/468171/downl oad Fact Sheet for Patients: https://www.fda.gov /media/558539/downl oad Normal [facility] Comment on above: Performed By: #### C OVFLR #### [facility] ([id number]) [address] [place] [address] 09510 TROPONIN Ion 10-28-2023 Troponin I.cardiac [Mass/Vol] ng/mL Normal 0.00-0.04 [facility] Comment on above: Performed By: #### 1 0839-9, 83497-1, CBCA, CMP, 44068-4 #### [facility] ([id number]) [address] [place] [address] 29246 URN MACROSCOPIC NURon 2022 BILIRUBIN OLIVIA Negative Normal NEG [facility] Comment on above: Performed By: #### N UM #### [facility] ([id number]) [address] [place] [address] 60218 BLOOD/HGB OLIVIA Trace Abnormal NEG [facility] Comment on above: Performed By: #### N UM #### [facility] ([id number]) [address] [place] [address] 72626 GLUCOSE OLIVIA Negative Normal NEG [facility] Comment on above: Performed By: #### N UM #### [facility] ([id number]) [address] [place] [address] 97465 KETONES OLIVIA Negative Normal NEG [facility] Comment on above: Performed By: #### N UM #### [facility] ([id number]) [address] [place] [address] 44485 LEUKOCYTE ESTERASE OLIVIA Negative Normal NEG [facility] Comment on above: Performed By: #### N UM #### [facility] ([id number]) [address] [place] [address] 22174 NITRITE OLIVIA Negative Normal NEG [facility] Comment on above: Performed By: #### N UM #### [facility] ([id number]) [address] [place] [address] 01963 PH OLIVIA 6.0 Normal 5.0-8.5 [facility] Comment on above: Performed By: #### N UM #### [facility] ([id number]) [address] [place] [address] 66557 PROTEIN OLIVIA Negative Normal NEG [facility] Comment on above: Performed By: #### N UM #### [facility] ([id number]) [address] [place] [address] 16162 SPECIFIC GRAVITY OLIVIA 1.010 Normal 1.003-1.035 [facility] Comment on above: Performed By: #### N UM #### [facility] ([id number]) [address] [place] [address] 90518 UROBILINOGEN OLIVIA 0.2 eu/dL Normal <1.1 [facility] Comment on above: Performed By: #### N UM #### [facility] ([id number]) [address] [place] [address] 60524 COVID/FLU/RSV RT-PCRon 12-24 SARS-CoV-2 (COVID-19) RNA KAREN+probe Ql (Unsp spec) Negative [facility] [employer] Other COVID/FLU/RSV RT-PCR Negative [employer] Other SARS-CoV-2 (COVID-19) RNA NA A+probe Ql (Resp)on 06-01-2022 SARS-CoV-2 (COVID-19) RNA KAREN+probe Ql (Unsp spec) Positive [employer] Other REJI by IFAon 03-22-2022 Antinuclear Antibodies, IFA Negative Normal [facility] Comment on above: Result Comment: Nega tive <1:80 Borderline 1:80 Positive >1:80 ICAP nomenclature: AC-0 For more information about Hep-2 cell patterns use ANApatterns.org, the official website for the International Consensus on Antinuclear Antibody (REJI) Patterns (ICAP). Performed By: #### A NAIFA #### [facility] [address] [place] [address] Dr. Andre Haynes THYROID ANTIBODIESon 022 Thyroglobulin Antibody <1.0 Normal 0.0-0.9 [facility] Comment on above: Result Comment: Thyr oglobulin Antibody measured by [employer] SRO Methodology Performed By: #### T HYBS #### [facility] [address] [place] [address] Dr. Andre Haynes Thyroid Peroxidase (TPO) Ab 10 IU/mL Normal 0-34 [facility] Comment on above: Performed By: #### T HYBS #### [facility] [address] [place] [address] Dr. Andre Haynes ANTISTREPTOLYSIN O AB (ASO)o n 03-19-2022 Antistreptolysin O Ab <20.0 Normal 0.0-200.0 [facility] Comment on above: Performed By: #### A SOAB #### [facility] [address] [place] [address] Dr. Andre Haynes RHEUMATOID FACTORon 03-19-20 RA Latex Turbid. <10.0 Normal <14.0 [facility] Comment on above: Performed By: #### R F #### [facility] [address] [place] [address] Dr. Andre Haynes CBC AUTO DIFFon 03-18-2022 BASO # 0.0 103/ul Normal 0.0-0.1 [facility] Comment on above: Performed By: #### C BC #### [facility] [address] [place] [address] Dr. Andre Haynes Basophils/100 WBC (Bld) 0.3 % Normal 0.2-2.0 [facility] Comment on above: Performed By: #### C BC #### [facility] [address] [place] [address] Dr. Andre Haynes EO # 0.4 103/ul Normal 0.0-0.7 [facility] Comment on above: Performed By: #### C BC #### [facility] [address] [place] [address] Dr. Andre Haynes Eosinophils/100 WBC (Bld) 4.0 % Normal 0.9-7.0 [facility] Comment on above: Performed By: #### C BC #### [facility] [address] [place] [address] Dr. Andre Haynes Erythrocyte distribution width (RBC) [Ratio] 12.5 % Normal 11.0-15.0 [facility] Comment on above: Performed By: #### C BC #### [facility] [address] [place] [address] Dr. Andre Haynes Hematocrit (Bld) [Volume fraction] 41.9 % Normal 36.0-48.0 [facility] Comment on above: Performed By: #### C BC #### [facility] [address] [place] [address] Dr. Andre Haynes Hemoglobin (Bld) [Mass/Vol] 14.4 g/dL Normal 12.0-16.0 [facility] Comment on above: Performed By: #### C BC #### [facility] [address] [place] [address] Dr. Andre Haynes IG # 0.04 10e3/ul Critically high 0.00-0.03 [facility] Comment on above: Performed By: #### C BC #### [facility] [address] [place] [address] Dr. Andre Haynes IG % 0.4 % Normal 0.0-0.5 [facility] Comment on above: Performed By: #### C BC #### [facility] [address] [place] [address] Dr. Andre Haynes LYMPH # 2.6 103/ul Normal 1.2-3.8 [facility] Comment on above: Performed By: #### C BC #### [facility] [address] [place] [address] Dr. Andre Haynes Lymphocytes/100 WBC (Bld) 29.2 % Normal 20.5-60.0 [facility] Comment on above: Performed By: #### C BC #### [facility] [address] [place] [address] Dr. Andre Haynes MANUAL DIFF REQ NO Normal [facility] Comment on above: Performed By: #### C BC #### [facility] [address] [place] [address] Dr. Andre Haynes MCH (RBC) [Entitic mass] 33.3 pg Normal 26.7-34.0 [facility] Comment on above: Performed By: #### C BC #### [facility] [address] [place] [address] Dr. Andre Haynes MCHC (RBC) [Mass/Vol] 34.4 g/dL Normal 29.9-35.2 [facility] Comment on above: Performed By: #### C BC #### [facility] [address] [place] [address] Dr. Andre Haynes MCV (RBC) [Entitic vol] 97.0 fL Normal 81.0-99.0 [facility] Comment on above: Performed By: #### C BC #### [facility] [address] [place] [address] Dr. Andre Haynes MONO # 0.6 103/ul Normal 0.3-0.8 [facility] Comment on above: Performed By: #### C BC #### [facility] [address] [place] [address] Dr. Andre Haynes Monocytes/100 WBC (Bld) 6.4 % Normal 1.7-12.0 [facility] Comment on above: Performed By: #### C BC #### [facility] [address] [place] [address] Dr. Andre Haynes NEUT # 5.4 103/ul Normal 1.4-6.5 [facility] Comment on above: Performed By: #### C BC #### [facility] [address] [place] [address] Dr. Andre Haynes Neutrophils/100 WBC (Bld) 59.7 % Normal 43.0-75.0 [facility] Comment on above: Performed By: #### C BC #### [facility] [address] [place] [address] Dr. Andre Haynes Platelet mean volume (Bld) [Entitic vol] 9.9 fL Normal 9.5-13.5 [facility] Comment on above: Performed By: #### C BC #### [facility] [address] [place] [address] Dr. Andre Haynes PLT 217 103/ul Normal 150-450 [facility] Comment on above: Performed By: #### C BC #### [facility] [address] [place] [address] Dr. Andre Haynes RBC 4.32 106/ul Normal 4.20-5.40 [facility] Comment on above: Performed By: #### C BC #### [facility] [address] [place] [address] Dr. Andre Haynes WBC 9.0 103/ul Normal 4.0-11.0 [facility] Comment on above: Performed By: #### C BC #### [facility] [address] [place] [address] Dr. Andre Haynes CRPon 03-18-2022 CRP [Mass/Vol] mg/L Normal <=1.0 [facility] Comment on above: Performed By: #### R F #### [facility] [address] [place] [address] Dr. Andre Haynes FERRITINon 03-18-2022 Ferritin [Mass/Vol] 35.0 ng/mL Normal 6.2-137.0 [facility] Comment on above: Performed By: #### R F #### [facility] [address] [place] [address] Dr. Andre Haynes FREE T3on 03-18-2022 FREE T3 3.61 pg/mlL Normal 2.18-3.98 [facility] Comment on above: Performed By: #### R F #### [facility] [address] [place] [address] Dr. Andre Haynes FREE T4on 03-18-2022 Free T4 [Mass/Vol] 1.00 ng/dL Normal 0.76-1.46 [facility] Comment on above: Performed By: #### R F #### [facility] [address] [place] [address] Dr. Andre Haynes IRONon 03-18-2022 Iron [Mass/Vol] 87.0 ug/dL Normal 50.0-170.0 [facility] Comment on above: Performed By: #### R F #### [facility] [address] [address] [address] Andre Haynes LIVER PROFILEon 03-18-2022 Albumin [Mass/Vol] 3.7 g/dL Normal 3.4-5.0 [facility] Comment on above: Performed By: #### R F #### [facility] [address] [address] [address] Andre Haynes Albumin/Globulin [Mass ratio] 1.3 {ratio} Normal [facility] Comment on above: Performed By: #### R F #### [facility] [address] [place] [address] Dr. Andre Haynes ALP [Catalytic activity/Vol] 74 U/L Normal 46-116 [facility] Comment on above: Performed By: #### R F #### [facility] [address] [address] [address] Andre Haynes ALT [Catalytic activity/Vol] 24 U/L Normal 14-59 [facility] Comment on above: Performed By: #### R F #### [facility] [address] [place] [address] Dr. Andre Haynes AST [Catalytic activity/Vol] 13 U/L Critically low 15-37 [facility] Comment on above: Performed By: #### R F #### [facility] [address] [address] [address] Andre Haynes BILI, CONJUGATED 0.1 mg/dL Normal 0.0-0.2 [facility] Comment on above: Performed By: #### R F #### [facility] [address] [address] [address] Andre Haynes Bilirubin [Mass/Vol] 0.3 mg/dL Normal 0.2-1.0 [facility] Comment on above: Performed By: #### R F #### [facility] [address] [address] [address] Andre Haynes Globulin (S) [Mass/Vol] 2.8 g/dL Normal [facility] Comment on above: Performed By: #### R F #### [facility] [address] [place] [address] Dr. Andre Haynes Protein [Mass/Vol] 6.5 g/dL Normal 6.4-8.2 [facility] Comment on above: Performed By: #### R F #### [facility] [address] [place] [address] Dr. Andre Haynes PROF CHEM 8 (BAS METB)on Anion gap [Moles/Vol] 12.0 mmol/L Normal [facility] Comment on above: Performed By: #### F T3, LIVER, BMP, TSH, URIC, CRP #### [facility] [address] [place] [address] Dr. Andre Haynes Calcium [Mass/Vol] 8.8 mg/dL Normal 8.5-10.1 [facility] Comment on above: Performed By: #### F T3, LIVER, BMP, TSH, URIC, CRP #### [facility] [address] [place] [address] Dr. Andre Haynes Chloride [Moles/Vol] 104 mmol/L Normal 98-107 [facility] Comment on above: Performed By: #### F T3, LIVER, BMP, TSH, URIC, CRP #### [facility] [address] [place] [address] Dr. Andre Haynes CO2 [Moles/Vol] 25.8 mmol/L Normal 21.0-32.0 [facility] Comment on above: Performed By: #### F T3, LIVER, BMP, TSH, URIC, CRP #### [facility] [address] [place] [address] Dr. Andre Haynes Creatinine [Mass/Vol] 1.05 mg/dL Critically high 0.55-1.02 [facility] Comment on above: Performed By: #### F T3, LIVER, BMP, TSH, URIC, CRP #### [facility] [address] [place] [address] Dr. Andre Haynes EGFR-AF BULGARIAN >60 Normal >=60 [facility] Comment on above: Performed By: #### F T3, LIVER, BMP, TSH, URIC, CRP #### [facility] [address] [address] [address] Andre Haynes EGFR-NON AF BULGARIAN 58 mL/min/1.73m2 Critically low >=60 [facility] Comment on above: Performed By: #### F T3, LIVER, BMP, TSH, URIC, CRP #### [facility] [address] [address] [address] Andre Haynes Glucose [Mass/Vol] 85 mg/dL Normal 74-106 [facility] Comment on above: Performed By: #### F T3, LIVER, BMP, TSH, URIC, CRP #### [facility] [address] [address] [address] Andre Haynes Potassium [Moles/Vol] 3.8 mmol/L Normal 3.5-5.1 [facility] Comment on above: Performed By: #### F T3, LIVER, BMP, TSH, URIC, CRP #### [facility] [address] [address] [address] Andre Haynes Sodium [Moles/Vol] 138 mmol/L Normal 136-145 [facility] Comment on above: Performed By: #### F T3, LIVER, BMP, TSH, URIC, CRP #### [facility] [address] [address] [address] Andre Haynes Urea nitrogen [Mass/Vol] 11.0 mg/dL Normal 7.0-18.0 [facility] Comment on above: Performed By: #### F T3, LIVER, BMP, TSH, URIC, CRP #### [facility] [address] [address] [address] Andre Haynes Urea nitrogen/Creatinine [Mass ratio] 10.5 mg/mg Normal [facility] Comment on above: Performed By: #### F T3, LIVER, BMP, TSH, URIC, CRP #### [facility] [address] [address] [address] Andre Haynes PROTIMEon 03-18-2022 INR Coag (PPP) [Relative time] 1.01 {INR} Normal [facility] Comment on above: Performed By: #### P TT, PT #### [facility] [address] [place] [address] Dr. Andre Haynes INR GUIDELINES SEE BELOW Normal [facility] Comment on above: Result Comment: BRICE RED INR: 2.0 - 3.0 CONDITIONS NOT LISTED BELOW 2.5 - 3.5 FOR PROSTHETIC HEART VALVE REPLACEMENT 2.5 - 3.5 RECURRENT THROMBOSIS Performed By: #### P TT, PT #### [facility] [address] [place] [address] Dr. Andre Haynes PT Coag (PPP) [Time] 10.9 s Normal 9.0-11.6 [facility] Comment on above: Performed By: #### P TT, PT #### [facility] [address] [place] [address] Dr. Andre Haynes PTTon 03-18-2022 aPTT Coag (Bld) [Time] 27.2 s Normal 22.3-36.2 [facility] Comment on above: Performed By: #### P TT, PT #### [facility] [address] [place] [address] Dr. Andre Hay[facility] 1 mm/hr Normal <=20 [facility] Comment on above: Performed By: #### A SOAB #### [facility] [address] [place] [address] Dr. Andre Haynes TSHon 03-18-2022 TSH 2.218 uIU/mL Normal 0.358-3.740 [facility] Comment on above: Performed By: #### R F #### [facility] [address] [place] [address] Dr. Andre Haynes TSH RANGE SEE BELOW Normal [facility] Comment on above: Result Comment: <0.3 4 UIU/ml HYPERTHYROID 0.34-5.60 UIU/ml EUTHYROID >5.60 UIU/ml HYPOTHYROID Performed By: #### R F #### [facility] [address] [place] [address] Dr. Andre Haynes UA (CLEAN/CATCH) MOLDING LINE ASSISTANT/MICRO I F IND.on 03-18-2022 Bilirubin Ql (U) Negative Normal NEGATIVE [facility] Comment on above: Performed By: #### R F #### [facility] [address] [place] [address] Dr. Andre Haynes Clarity (U) CLEAR Normal CLEAR [facility] Comment on above: Performed By: #### R F #### [facility] [address] [place] [address] Dr. Andre Haynes Color (U) YELLOW Normal YELLOW [facility] Comment on above: Performed By: #### R F #### [facility] [address] [place] [address] Dr. Andre Haynes Glucose Ql (U) Negative Normal NEGATIVE [facility] Comment on above: Performed By: #### R F #### [facility] [address] [place] [address] Dr. Andre Haynes Hemoglobin Ql (U) Negative Normal NEGATIVE [facility] Comment on above: Performed By: #### R F #### [facility] [address] [place] [address] Dr. Andre Haynes Ketones Ql (U) Negative Normal NEGATIVE [facility] Comment on above: Performed By: #### R F #### [facility] [address] [place] [address] Dr. Andre Haynes LEUKOCYTES Negative Normal NEGATIVE [facility] Comment on above: Performed By: #### R F #### [facility] [address] [place] [address] Dr. Andre Haynes Nitrite Ql (U) Negative Normal NEGATIVE [facility] Comment on above: Performed By: #### R F #### [facility] [address] [place] [address] Dr. Andre Haynes pH (U) 6.0 [pH] Normal 5-9 [facility] Comment on above: Performed By: #### R F #### [facility] [address] [place] [address] Dr. Andre Haynes SPEC GRAVITY 1.020 Normal 1.005-<=1.02 5 [facility] Comment on above: Performed By: #### R F #### [facility] [address] [place] [address] Dr. Andre Haynes UA PROTEIN Negative Normal NEGATIVE/ TRACE [facility] Comment on above: Performed By: #### R F #### [facility] [address] [place] [address] Dr. Andre Haynes UR MICRO IND MICROSCOPIC ALREADY ORDERED Normal [facility] Comment on above: Performed By: #### R F #### [facility] [address] [place] [address] Dr. Andre Haynes Urobilinogen Qn (U) 0.2 {Rafal'U}/dL Normal 0.2 - 1. 0 [facility] Comment on above: Performed By: #### R F #### [facility] [address] [place] [address] Dr. Andre Haynes URIC ACID SERUMon 03-18-2022 Urate [Mass/Vol] 3.9 mg/dL Normal 2.6-6.0 [facility] Comment on above: Performed By: #### R F #### [facility] [address] [place] [address] Dr. Andre Haynes URINE MICROSCOPIC ONLYon BACTERIA NONE SEEN Normal NONE SEEN [facility] Comment on above: Performed By: #### R F #### [facility] [address] [place] [address] Dr. Andre Haynes Bacteria identified Cx Nom (U) NOT INDICATED Normal [facility] Comment on above: Performed By: #### R F #### [facility] [address] [place] [address] Dr. Andre Haynes CAST NONE SEEN Normal NONE SEEN [facility] Comment on above: Performed By: #### R F #### [facility] [address] [place] [address] Dr. Andre Haynes Crystals LM Nom (Urine sed) NONE SEEN Normal NONE SEEN [facility] Comment on above: Performed By: #### R F #### [facility] [address] [place] [address] Dr. Andre Haynes Epithelial cells LM Ql (Urine sed) FEW Abnormal NONE SEEN /RARE [facility] Comment on above: Performed By: #### R F #### [facility] [address] [place] [address] Dr. Andre Haynes MUCOUS NONE SEEN Normal NONE SEEN [facility] Comment on above: Performed By: #### R F #### [facility] [address] [place] [address] Dr. Andre Haynes RBC 0-2 Normal 0-2 [facility] Comment on above: Performed By: #### R F #### [facility] [address] [place] [address] Dr. Andre Haynes WBC NONE SEEN Normal NONE SEEN [facility] Comment on above: Performed By: #### R F #### [facility] [address] [place] [address] Dr. Andre Haynes ER URINE PROFILEon 2 Bilirubin Ql (U) Negative Normal NEGATIVE [facility] Comment on above: Performed By: #### E RUR #### [facility] [address] [place] [address] Dr. Andre Haynes Clarity (U) CLEAR Normal CLEAR [facility] Comment on above: Performed By: #### E RUR #### [facility] [address] [place] [address] Dr. Andre Haynes Color (U) LT. YELLOW Normal YELLOW [facility] Comment on above: Performed By: #### E RUR #### [facility] [address] [place] [address] Dr. Andre Haynes ERUAHD A micrscopic examination will be performed if indicated. Normal [facility] Comment on above: Performed By: #### E RUR #### [facility] [address] [place] [address] Dr. Andre Haynes Glucose Ql (U) Negative Normal NEGATIVE [facility] Comment on above: Performed By: #### E RUR #### [facility] [address] [place] [address] Dr. Andre Haynes Hemoglobin Ql (U) Negative Normal NEGATIVE [facility] Comment on above: Performed By: #### E RUR #### [facility] [address] [place] [address] Dr. Andre Haynes Ketones Ql (U) Negative Normal NEGATIVE [facility] Comment on above: Performed By: #### E RUR #### [facility] [address] [place] [address] Dr. Andre Haynes LEUKOCYTES Negative Normal NEGATIVE [facility] Comment on above: Performed By: #### E RUR #### [facility] [address] [place] [address] Dr. Andre Haynes Nitrite Ql (U) Negative Normal NEGATIVE [facility] Comment on above: Performed By: #### E RUR #### [facility] [address] [place] [address] Dr. Andre Haynes pH (U) 6.0 [pH] Normal 5-9 [facility] Comment on above: Performed By: #### E RUR #### [facility] [address] [place] [address] Dr. Andre Haynes SPEC GRAVITY <=1.005 Abnormal 1.005-<=1.02 5 [facility] Comment on above: Performed By: #### E RUR #### [facility] [address] [place] [address] Dr. Andre Haynes UA PROTEIN Negative Normal NEGATIVE/ TRACE [facility] Comment on above: Performed By: #### E RUR #### [facility] [address] [place] [address] Dr. Andre Haynes UR MICRO IND NOT INDICATED Normal [facility] Comment on above: Performed By: #### E RUR #### [facility] [address] [place] [address] Dr. Andre Haynes Urobilinogen Qn (U) 0.2 {Rafal'U}/dL Normal 0.2 - 1. 0 [facility] Comment on above: Performed By: #### E RUR #### [facility] [address] [place] [address] Dr. Andre Haynes XR LSPINE MIN 4 [...] TESS BANGURA Date: 2021-11-19 07:38 Normal [facility] OUTSIDE CONSULT MSKon 2020 OUTSIDE CONSULT MSK [facility] Department of Radiology [address] [place] [id number] Patient Name: SIMONA LO : 1980 Sex: F Age: Race: White Pt. Location: LPOP Patient Status: Ordered Date: 02/05/2021 3:35:00 PM Completed Date: 02/05/2021 03:51 PM Requesting Provider: OLE TUCKER Attending Provider: Report Copy To: Signs & Symptoms: pt has persistent rt sided pectoralis pain and weakness. Assess pectoralis tendon for injury and/or tear History: Mri of rt shoulder from [facility] dated 11/05/20. Over read requested by Dr Tucker Comments: Exam: OUTSIDE CONSULT MSK OUTSIDE CONSULT MSK 02/05/2021 3:51 PM OUTSIDE STUDY: TECHNIQUE: Outside images of the right shoulder obtained from [facility] dated November 05, 2020. Image review with [...] difference in this interpretation. Electronically signed: Jonathan Huerta. Transcribed by: [email or web address], User Resident: JONATHAN HUERTA Electronically Signed by: JONATHAN HUERTA @ 02/13/2021 12:32 PM I personally read this/these film(s) with this resident Normal [facility] Vital Signs Date Time Vital Sign Value Performing Clinician Facility 05-28-2024 14:00-0400 Diastolic blood pressure 92 mm[Hg] Ainsley Sellers Work Phone: [facility] 05-28-2024 14:00-0400 Heart rate 89 /min Ainsley Sellers Work Phone: [facility] 05-28-2024 14:00-0400 Respiratory rate 16 /min Ainsley Sellers Work Phone: [facility] 05-28-2024 14:00-0400 SaO2% (BldA) [Mass fraction] 95 % Ainsley Maycoholz Work Phone: [facility] 05-28-2024 14:00-0400 Systolic blood pressure 125 mm[Hg] Ainsley Maycoholz Work Phone: [facility] 05-28-2024 12:23-0400 Body temperature 97.9 [degF] Ainsley Sellers Work Phone: [facility] 05-28-2024 11:38-0400 Inhaled oxygen flow rate 8 L/min Ainsley Maycoholz Work Phone: [facility] 05-28-2024 09:07-0400 Body height 160.02 cm Ainsley Sellers Work Phone: [facility] 05-28-2024 09:07-0400 Body mass index (BMI) [Ratio] 34.7 kg/m2 Ainsley Maoholz Work Phone: [facility] 05-28-2024 09:07-0400 Body weight 88.9 kg Ainsley Valdezz Work Phone: [facility] 04-05-2024 11:08-0400 Body height 160.02 cm [facility] 04-05-2024 11:08-0400 Body mass index (BMI) [Ratio] 34 kg/m2 [facility] 04-05-2024 11:08-0400 Body weight 87.08 kg [facility] 02-24-2024 09:23-0400 Body height 160.02 cm [facility] 02-24-2024 09:23-0400 Body mass index (BMI) [Ratio] 34.7 kg/m2 [facility] 02-24-2024 09:23-0400 Body weight 89 kg [facility] 01-01-2024 14:16-0500 Body height 160.02 cm [facility] 01-01-2024 14:16-0500 Body mass index (BMI) [Ratio] 31.5 kg/m2 [facility] 01-01-2024 14:16-0500 Body temperature 98.3 [degF] [facility] 01-01-2024 14:16-0500 Body weight 80.73 kg [facility] 01-01-2024 14:16-0500 Heart rate 99 /min [facility] 01-01-2024 14:16-0500 Respiratory rate 18 /min [facility] 01-01-2024 14:16-0500 SaO2% (BldA) [Mass fraction] 98 % [facility] 12-24-2022 09:25-0500 Body height 160.02 cm Aicha Shankar Other [facility] [employer] Other 12-24-2022 09:25-0500 Body mass index (BMI) [Ratio] 29.58 kg/m2 Aicha Shankar Other [facility] Other 12-24-2022 09:25-0500 Body temperature 98.8 [degF] Aicha Shankar Other [facility] Other 12-24-2022 09:25-0500 Body weight 75.75 kg Aicha Shankar Other [facility] Other 12-24-2022 09:25-0500 Respiratory rate 18 /min Aicha Shankar Other [facility] Other 12-24-2022 09:25-0500 SaO2% (BldA) [Mass fraction] 95 % Aicha Shankar Other [facility] Other 06-01-2022 18:20-0400 Body height 160.02 cm Aicha Shankar Other [facility] Other 06-01-2022 18:20-0400 Body mass index (BMI) [Ratio] 27.45 kg/m2 Aicha Shankar Other [facility] Other 06-01-2022 18:20-0400 Body temperature 99.5 [degF] Aicha Shankar Other [facility] Other 06-01-2022 18:20-0400 Body weight 70.31 kg Aicha Shankar Other [facility] Other 06-01-2022 18:20-0400 Respiratory rate 18 /min Aicha Shankar Other [facility] Other 06-01-2022 18:20-0400 SaO2% (BldA) [Mass fraction] 98 % Aicha Shankar Other [facility] Other Encounters Encounter Date Encounter Type Care Provider Facility Start: 06-11-2024 End: 06-11-2024 ambulatory AINSLEY SELLERS Not Available Start: 05-28-2024 End: 05-28-2024 Admission to same day surgery center Ainsley Sellers Work Phone: [facility] [place] Start: 05-28-2024 End: 05-28-2024 ambulatory Ainsley Sellers Work Phone: [facility] Work Phone: Start: 04-26-2024 End: 04-26-2024 ambulatory AINSLEY SELLERS Not Available Start: 04-16-2024 End: 04-16-2024 Patient encounter procedure Ainsley Sellers Work Phone: [facility] Work Phone: Start: 04-16-2024 End: 04-16-2024 ambulatory Ainsley J Georginahholz Work Phone: [facility] Work Phone: Start: 04-16-2024 Encounter for preprocedural laboratory examination Say Summers [facility] Start: 04-05-2024 End: 04-05-2024 ambulatory [facility] Work Phone: Start: 04-05-2024 End: 04-05-2024 Patient encounter procedure [facility] Neuro[facility] Work Phone: Start: 03-29-2024 End: 03-29-2024 ambulatory AINSLEY AICHHOLZ Not Available Start: 03-22-2024 End: 03-22-2024 ambulatory ODALIS KELBLEY Not Available Start: 03-20-2024 End: 03-23-2024 ambulatory STEPAN RONDONENEIDA Not Available Start: 03-15-2024 End: 03-15-2024 ambulatory ODALIS KELBLEY Not Available Start: 03-13-2024 End: 03-13-2024 ambulatory AINSLEY Cb DALEYHMEÑO [facility] Start: 03-13-2024 End: 03-13-2024 ambulatory RENA SMITH Not Available Start: 03-08-2024 End: 03-08-2024 ambulatory AINSLEY AICHHOLZ Not Available Start: 03-07-2024 End: 03-08-2024 ambulatory RENA SMITH Not Available Start: 02-24-2024 End: 02-24-2024 ambulatory [facility] Work Phone: Start: 02-24-2024 End: 02-24-2024 Patient encounter procedure [facility] Neurosurgery Work Phone: Start: 01-30-2024 End: 01-30-2024 ambulatory AINSLEY AICHHOLZ Not Available Start: 01-18-2024 End: 01-18-2024 ambulatory SWETA BRIGGS Not Available Start: 01-12-2024 End: 01-12-2024 ambulatory AINSLEY AICHHOLZ Not Available Start: 01-01-2024 End: 01-01-2024 Patient encounter procedure [facility] Work Phone: Start: 12-22-2023 End: 12-22-2023 ambulatory [facility] Comment on above: Encounter for survei llance of injectable contraceptive (Primary Dx) Start: 11-17-2023 End: 11-17-2023 ambulatory AINSLEY AICHHOLZ Not Available Start: 11-15-2023 Telephone encounter Sharri Palma [facility] Obstetrics/Gynecology Start: 10-28-2023 End: 10-29-2023 Emergency department patient visit [facility] Start: 10-28-2023 End: 10-29-2023 Emergency department patient visit [facility] Start: 10-06-2023 End: 10-06-2023 ambulatory SCHULZ BETO Not Available Start: 12-24-2022 End: 12-24-2022 ambulatory Aicha Vonnie Other [facility] Other Start: 12-24-2022 Office outpatient vi sit 25 minutes Aicha Vonnie [facility] Start: 06-01-2022 End: 06-01-2022 ambulatory Aicha Vonnie Other [facility] Other Start: 06-01-2022 Office outpatient ne w 30 minutes Aicha Vonnie [facility] Start: 03-18-2022 End: 03-19-2022 ambulatory GALVANIZER AINSLEY AICHHOLZ Facility:[facility] Start: 01-29-2022 End: 01-29-2022 ambulatory GALVANIZER AINSLEY AICHHOLZ Facility:[facility] Start: 11-24-2021 End: 11-27-2021 ambulatory GALVANIZER AINSLEY AICHHOLZ Facility:[facility] Start: 11-18-2021 End: 11-19-2021 ambulatory GALVANIZER AINSLEY AICHHOLZ Facility:[facility] Start: 10-17-2021 End: 10-17-[address] RANDOLPH CADET Facility: Start: 01-06-2021 End: 01-21-2021 ambulatory PHYSICIAN UNKNOWN Facility:[facility] Procedures Date Procedure Procedure Detail Performing Clinician Start: 05-28-2024 Excision of lumbar intervertebral disc Ainsley Sellers Work Phone: Start: 05-28-2024 X-ray of lumbar spin e, single view Ainsley Sellers Work Phone: Start: 04-26-2023 Adult depression scr eening assessment Sharri Gipson Start: 04-15-2023 Mammography Sharri Gipson Start: 03-24-2022 Microscopic observat ion [Identifier] in Cervix by Cyto stain Sharri Gipson Plan of Treatment Date Care Activity Detail Author Start: 03-24-2025 Screening for malign ant neoplasm of cervix Pap Smear [facility] Start: 10-28-2024 Tobacco Screening Tobacco Screening [facility] Start: 05-28-2024 [facility] Start: 05-28-2024 [facility] Start: 04-26-2024 Adult BMI Follow Up Plan Adult BMI Follow Up Plan [facility] Start: 04-26-2024 Adult BMI Screening Adult BMI Screen ing [facility] Start: 04-26-2024 Depression Screening Depression Scre ening [facility] Start: 04-15-2024 Screening for malign ant neoplasm of breast Mammogram [facility] Start: 03-13-2024 End: 03-13-2024 ambulatory 03/13/2024 11:45 AM EDT Nurse Injection [facility] [address] [place] [address] [facility] Start: 12-21-2023 End: 12-21-2023 ambulatory 12/21/2023 3:30 PM EST Nurse Injection [facility] [address] [place] [address] [facility] Start: 07-01-2023 COVID-19 Vaccine ( season) COVID-19 Vaccine ( season) [facility] Start: 07-01-2023 Influenza vaccination Influenza Vacc ine [facility] Start: 1999 DTaP,Tdap and Td Vaccines (1 - Tdap) DTaP,Tdap and Td Vaccines (1 - Tdap) [facility] Start: 1980 Tobacco Counseling Tobacco Counselin marguerite [facility] Patient Education Know your Meds [facility] Work Phone: Patient referral [facility] Work Phone: XR Lumbar spine Views [facility] Immunizations Immunization Date Immunization Notes Care Provider Fa edward 09-03-2022 COVID-19 mRNA Bivale nt Booster (Moderna) Ainsley Sellers Work Phone: [facility] 09-03-2022 influenza virus vaccine, unspecified formulation Sharri Gipson [facility] 04-12-2021 COVID-19 mRNA-1273 (Moderna) Ainsley Sellers Work Phone: [facility] 03-15-2021 COVID-19 mRNA-1273 (Moderna) Ainsley Sellers Work Phone: [facility] Payers Date Payer Category Payer Self-pay 2022 [facility] Health [facility] [id number] 2022-Present [phone] [address] [address] [place] [address] [id number] 2022 Unknown [id number] 2.16.840.1.692638.19 1980 Unknown [id number] 2.16.840.1.523394.3.579 .2.647 1980 Unknown [id number] 2.16.840.1.907640.3.579 .2.593 1980 Unknown [id number] 2.16.840.1.556595.3.579 .2.593 1980 Unknown [id number] 2.16.840.1.730308.3.579 .2.593 1980 Unknown [id number] 2.16.840.1.668147.3.579 .2.593 1980 Unknown [id number] 2.16.840.1.302969.3.579 .2.593 1980 Unknown [id number] 2.16.840.1.923069.3.579 .2.1286 1980 Unknown [id number] 2.16.840.1.142852.3.579 .2.1285 1980 Unknown [id number] 2.16.840.1.745206.3.579 .2.1285 1980 Unknown [id number] 2.16.840.1.864819.3.579 .2.1285 1980 Unknown [id number] 2.16.840.1.509492.3.579 .2.1285 1980 Unknown [id number] 2.16.840.1.150942.3.579 .2.1258 1980 Unknown [id number] 2.16.840.1.020429.3.579 .2.1258 1980 Unknown [id number] 2.16.840.1.993778.3.579 .2.1258 1980 Unknown [id number] 2.16.840.1.777938.3.579 .2.1258 1980 Unknown [id number] 2.16.840.1.829645.3.579 .2.1258 1980 Unknown [id number] 2.16.840.1.938330.3.579 .2.1258 1980 Unknown [id number] 2.16.840.1.906267.3.579 .2.1258 1980 Unknown [id number] 2.16.840.1.341037.3.579 .2.1258 1980 Unknown [id number] 2.16.840.1.956736.3.579 .2.1258 1980 Unknown [id number] 2.16.840.1.956576.3.579 .2.1258 1980 Unknown [id number] 2.16.840.1.074721.3.579 .2.1258 1980 Unknown [id number] 2.16.840.1.477080.3.579 .2.1258 1980 Unknown [id number] 2.16.840.1.715157.3.579 .2.1258 1980 Unknown [id number] 2.16.840.1.489769.3.579 .2.1258 1980 Unknown [id number] 2.16.840.1.339258.3.579 .2.9 1959 Unknown [id number] Unknown [id number] 2.16.840.1.539656.3.579 .2.531 Unknown [id number] 2.16.840.1.223301.3.579 .2.531 Worker's Compensation [id number] Social History Date Type Detail Facility Start: 12-10-2020 End: 10-28-2023 Sex Assigned At [facility] [employer] Other Start[facility] 10-31-2000 [facility] Start: 10-31-2000 History of tobacco use Cigarette Smo ker [facility] Start: 12-10-2020 End: 04-12-2023 Cigarettes smoked current (pack per day) - Reported 0.5 [facility] Start: 04-12-2023 Tobacco use and exposure Smokeless tobacco non-user [facility] Start: 10-28-2023 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) [facility] Adolescent depressio n screening assessment 7 [facility] Start: 1980 Sex Assigned At Not on file [facility] Start: 12-24-2022 Tobacco smoking stat [facility] Never smoked tobacco (finding) [facility] Start: 1980 Sex Assigned At Female [facility] Start: 04-16-2024 Tobacco smoking stat [facility] Ex-smoker (finding) [facility] Start: 05-28-2024 Tobacco smoking stat [facility] Smoker (finding) [facility] Goals Date Patient Goal Desired Activity /State Clinical Notes 06-01-2022 to 12-22-2023 Haley Velez [...] encounter [facility] [employer] 11-15-2023 Miscellaneous Notes Patient called the office [...] understood. SAURABH Camacho documented in this encounter [employer] 11-15-2023 Telephone encounter Note Patient called the [...] with recommendations for the patient. Thank you. [employer] 11-15-2023 Telephone encounter Note If patient is [...] come in for an appt. Thank you. [employer] 11-15-2023 Telephone encounter Note LVM for patient to return our call [facility] 11-15-2023 Telephone encounter Note Pt called back and informed her of this information. Pt verbalized she understood. SAURABH Camacho [facility] 10-28-2023 Note XR CHEST 2 VWS Procedure: Chest x-ray performed Number of views:2 History:Syncope Comparison:10/03/2010 Findings: The heart and lungs show no acute findings, and the mediastinum and meliza are grossly negative . Impression: 1. No acute change. Finalized by Ronni Roblero MD on 10/28/2023 7:04 PM [facility] 12-24-2022 Evaluation note Encounter Date Diagnosis Assessment [...] as decrease in urine, dry mouth, etc [facility] Other 08-02-2022 Evaluation note* Encounter Date Diagnosis Assessment Notes Treatment Notes Treatment Clinical Notes 02 Aug, 2022 Sore throat (ICD-10 - J02.9) May, COVID-19 (ICD-10 - U07.1) Today you tested positive for the COVID virus. This mean you need to follow all CDC quarantine guidelines found at [email or web address].g ov. It is important to rest, increase fluids, and stay at home. Recommend contacting primary care provider and discussing best course of action if you have chronic health conditions. [facility] Other Evaluation note* Diagnosis Encounter for surveillance of injectable contraceptive- Primary documented in this encounter [facility] SystemEvaluation noteNo assessment information available [facility] Work Phone: Evaluation note* Diagnosis Onset Date Resolution Status 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 acute [facility] Work Phone: Evaluation note* Diagnosis Onset Date Resolution Status 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 acute 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 acute [facility] Work Phone: Hislhnk general Narrative - Reported* Type Description Date Medical History Anxiety Surgical History C section x 3 Surgical History rotator cuff Surgical History cholecystectomy Hospitalization History Child [facility] Other Hisj[facility]n general Narrative - Reported* Type Description Date Medical History Anxiety Medical History Neuropathy Surgical History C section x 3 Surgical History rotator cuff Surgical History cholecystectomy Surgical History hip decompression left Hospitalization History Child [facility] Other Hospital Discharge instructions Additional Instructions DISCHARGE INSTRUCTIONS FOR LUMBAR/THORACIC DISCECTOMY, LAMINECTOMY, LAMINOTOMY, DECOMPRESSION DIET -No restrictions unless diabetic or cardiac ACTIVITY -Activity as tolerated; no lifting over 10 pounds -Encourage ambulation -No driving until seen by your physician; may ride in car -No need to cover incision site -May shower on Tuesday. -There is a liquid bandage on the wound, no dressing should be required unless drainage is noted. -Is ice 20 minutes every 1-2 hours as needed for back spasm -Use the prednisone provided if your leg pain returns to a significant degree. Otherwise please do not use the prednisone. OTHER -Call your physician's office for any of the following: fever, swelling, nausea, vomiting, drainage, numbness, tingling, or bowel and bladder changes. -Please call your physician's office to make an appointment to see your physician in two weeks.[facility] Work Phone: InstructionsNot on filedocumented in this encounter [facility] System[facility]ructionsNot on filedocumented in this encounter [facility] Summary Purpose Family History No Family History Records Found Relationship Condition Age at Onset Recorded Date/T nusrat father Diabetes mellitus Unknown Heart disease Unknown Advance Directives No Advanced Directives Records Found Advance Directive Response Recorded Date/ Time Advance Directives No December 31 3:00pm Chief Complaint and Reason for Visit Chief Complaint Right leg pain w/o i njury Ref Sweta Briggs, lumbar radiculopathy Chief Complaint Ref rachel Valdez umbar radiculopathy follow up after PT /surgical consult Reason for Visit Displacement of lumb ar intervertebral disc with radiculopathy Chief Complaint Ref rachel Valdez umbar radiculopathy follow up after PT /surgical consult Lumbar Disc Herniation Reason for Visit Displacement of lumb ar intervertebral disc with radiculopathy Displacement of lumbar intervertebral disc with radiculopathy Chief Complaint follow up after PT / surgical consult Lumbar Disc Herniation Lumbar Disc Herniation Reason for Visit Displacement of lumb ar intervertebral disc with radiculopathy Additional Source Comments INFORMATION SOURCE (unrecogn ized section and content) DATE CREATED AUTHOR 02/18/2021 [facility] DATE CREATED AUTHOR AUTHOR'S ORGANIZ ATION 06/01/2022 [facility] DATE CREATED AUTHOR AUTHOR'S ORGANIZ ATION 10/30/2023 [facility] DATE CREATED AUTHOR AUTHOR'S ORGANIZ ATION 03/15/2024 [facility] DATE CREATED AUTHOR AUTHOR'S ORGANIZ ATION 06/09/2024 [facility] DATE CREATED AUTHOR AUTHOR'S ORGANIZ ATION 06/13/2024 [facility] EPIC REASON FOR VISIT (unrecogniz ed section and content) Reason Comments Contraception Pt is here for DEPO Care Teams (unrecognized sec tion and content) Meal Attendant Relationship Specialty Start Date End Date Ainsley Sellers, DECORATING MACHINE TENDER-GALVANIZER [address] [place] [id number] PCP - General Nurse Practitioner 03/30/22 Meal Attendant Relationship Specialty Start Date End Date Ainsley Sellers DECORATING MACHINE TENDER-GALVANIZER [address] [place] [id number] PCP - General Nurse Practitioner 03/30/22 Team Status: Active Member Role Status Dates Ainsley Cb Georginaeddiemeño Primary Care Provider Active Team Status: Inactive Member Role Status Dates LAMONTE LockettC Attending Provider Active S tart: January 01, 2024 End: January 01, 2024 Ainsley Cb Georginaeddiemeño Primary Care Provider Active Sta rt: January 01, 2024 End: January 01, 2024 Team Status: Inactive Member Role Status Dates Ainsley J Georginaeddiemeño Primary Care Provider Active Sta rt: February 24, 2024 End: February 24, 2024 ALEXIA Carney Active Star t: February 24, 2024 End: February 24, 2024 Say Summers MD Attending Provider Active Star t: February 24, 2024 End: February 24, 2024 Team Status: Inactive Member Role Status Dates Ainsley Vivar Georginaeddiemeño Primary Care Provider Active Sta rt: April 05, 2024 End: April 05, 2024 Say Summers MD Attending Provider Active Star t: April 05, 2024 End: April 05, 2024 Team Status: Inactive Member Role Status Dates Ainsley Vivar Georginaeddiemeño Primary Care Provider Active Sta rt: April 16, 2024 End: April 16, 2024 Say Summers MD Attending Provider Active Star t: April 16, 2024 End: April 16, 2024 Team Status: Inactive Member Role Status Dates Ainsley Vivar Georginaeddiemeño Primary Care Provider Active Sta rt: May 28, 2024 End: May 28, 2024 Say Summers MD Attending Provider Active Star t: May 28, 2024 End: May 28, 2024 Goals (unrecognized section and content) Goals [...] PRIMARY CLINICAL RECORDS. [facility] [place] [facility]. provides no warranty or guarantee of the accuracy or completeness of information in this document.
== END 2024-06-26 16:58 | disposition home or self-care (01) ==
PROVIDERS: PCP Nurse Practitioner; Visit Provider Nurse Practitioner
DX: R07.81 Pleurodynia (principal)
CPT/HCPCS: 71101

== ENCOUNTER 2024-07-25 18:38 | Emergency (ER) | payer OTHER, SELFPAY ==
--- OUTSIDE RECORDS SUMMARY | 2024-07-25 18:43 | XMS_ITS | CCD ---
Author Organization [facility] Care Team Providers Care Earth Burner Name Role Phone UNKNOWN, PHYSICIAN Referring Unavailable UNKNOWN, PHYSICIAN Primary Care Unavailable EBRAHEIM, OLE Attending Unavailable EBRAHEIM, OLE Admitting Unavailable AICHHOLZ, STORE COORDINATOR AINSLEY Admitting Unavailable SVETA, DR TESS Eaton Consulting Unavailable AICHHOLZ, STORE COORDINATOR AINSLEY Attending Unavailable AICHHOLZ, STORE COORDINATOR AINSLEY Primary Care Unavailable AICHHOLZ, STORE COORDINATOR AINSLEY Consulting Unavailable AICHHOLZ, STORE COORDINATOR AINSLEY Primary Care Unavailable AICHHOLZ, STORE COORDINATOR AINSLEY Admitting Unavailable AICHHOLZ, STORE COORDINATOR AINSLEY Attending Unavailable AICHHOLZ, STORE COORDINATOR AINSLEY Primary Care Unavailable HELIO, DR RANDOLPH Mehta Admitting Unavailable HELIO, DR RANDOLPH Mehta Attending Unavailable HELIO, DR RANDOLPH Mehta Consulting Unavailable HELIO, DR RANDOLPH Mehta Admitting Unavailable YOLANDA, DR NEVAREZ Primary Care Unavailable HELIO, DR RANDOLPH Mehta Attending Unavailable HELIO, DR RANDOLPH Mehta Consulting Unavailable AICHHOLZ, STORE COORDINATOR AINSLEY Primary Care Unavailable AICHHOLZ, STORE COORDINATOR AINSLEY Admitting Unavailable AICHHOLZ, STORE COORDINATOR AINSLEY Attending Unavailable AICHHOLZ, STORE COORDINATOR AINSLEY Consulting Unavailable Aicha Shankar Unavailable AICHARMANDZ, AINSLEY J Primary Care Unavailable DIDI TAYLOR. Attending Unavailable DIDI TAYLOR. Attending Unavailable BRANDON, DIDI Martinez. Referring Unavailable AICHHOLZ, AINSLEY J Primary Care Unavailable BRANDON, DIDI E. Attending Unavailable MARGARETHTO, DIDI E. Referring Unavailable AICHHOLZ, AINSLEY J Primary Care Unavailable Aichholz EQUIPMENT [id number], Ainsley J Primary Care Provider VERITO, AINSLEY J Referring Unavailable AICHHOLZ, AINSLEY J Primary Care Unavailable AICHHOLZ, AINSLEY J Referring Unavailable AICHHOLZ, AINSLEY J Primary Care Unavailable Aichholz, Ainsley J Primary Care Provider [phone] MD Say Summers Attending Provider [phone] AINSLEY SELLERS Attending Unavailable AINSLEY SELLERS Attending Unavailable SWETA BRIGGS Attending Unavailable SWETA BRIGGS Referring Unavailable AINSLEY SELLERS Attending Unavailable RENA SMITH Attending Unavailable SUMMERS, SAY Referring Unavailable AICAINSLEY QURESHI Attending Unavailable RENA SMITH Attending Unavailable SUMMERS, SAY Referring Unavailable KELBLEODALIS Sidhu Attending Unavailable SUMMERS, SAY Referring Unavailable STEPAN NGO Attending Unavailable SUMMERS, SAY Referring Unavailable KELBLEY, ODALIS Attending Unavailable SUMMERS, SAY Referring Unavailable GEORGINAHHOLLiu, AINSLEY Attending Unavailable GEORGINAHHOLLiu, AINSLEY Attending Unavailable SHAIKH PÉREZ Attending Unavailable AICHHOLLiu, AINSLEY Attending Unavailable AINSLEY SELLERS Attending Unavailable Say Summers E Attending Unavailable Ainsley Sellers Primary Care Unavailable Summers, Say E Admitting Unavailable Summers, Say E Admitting Unavailable Summers Say E Attending Unavailable Ainsley Sellers Primary Care Unavailable Allergies Allergy Classification Reported Allergen(s) Allergy Type Date of Onset Reaction(s) Facility diphenhydrAMINE (1 source) diphenhydrAMINE; Translations: [BENADRYL] Drug Allergy 08-19-20 10 [facility] Repository (7 sources) Codeine; Translations: [CODEINE] Drug Allergy 05-30-20 13 Seizures [facility] Repository (1 source) diphenhydrAMINE Drug Allergy 05-30-20 13 [facility] Repository (4 sources) Codeine Drug Allergy 05-06-20 17 [facility] Other (6 sources) diphenhydrAMINE Drug Allergy 02-24-20 24 [facility] (4 sources) diphenhydrAMINE; Translations: [DIPHENHYDRAMINE HCL] Drug Allergy 05-06-20 17 [facility] Repository (1 source) Codeine Drug Allergy 06-28-20 24 [facility] Repository (1 source) diphenhydrAMINE Drug Allergy 06-28-20 24 [facility] Repository Medications Current Medications Medication Drug Class(es) [...] 1.5 mg/ml oral solution (1 source) Uncompetitive I-wuooai-V-asparta te Receptor Antagonist, Sigma-1 Agonist Start: 12-24-2022 [place] DM 7.5-7.5 MG/5ML 10 ml Orally every [...] oral tablet (1 source) Opioid Agonist Start: take 5-10 mg by mouth every six [...] Discontinued 20 MG PO Twice daily 10 January 01, 2024 1:00am April 16, 2024 2:04pm Start this prescription on January 01. 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 Performed By: #### U HCG #### [address] XR lumbar spine 1Von 024 XR lumbar spine 1V [facility] [place] [address] XRay Report Signed Patient: Simona Lo MR#: [id number] : 1980 Acct:[id number] Age/Sex: 43 / F ADM Date: 05/28/24 Loc: [place] Room: Type: [facility] Attending Dr: Say Summers MD Copies to: [...] Randolph Hoffman M.D.05/28/2024 1:40 PM Dictation Location: [place] [address] Transcribed By: [facility] 05/28/24 1340 Dictated By: Randolph Hoffman II, MD 05/28/24 1339 Signed By: 05/28/24 1340 Normal [facility] Automated basophil %Ordered By: Say Summers on 04-16-2024 Basophils/100 WBC (Bld) 0.3 % Normal . [facility] Comment on above: Performed By: #### B MP, CBC #### [address] Automated basophil countOrde red By: Say Summers on 04-16-2024 Basophils (Bld) [#/Vol] 0.0 10*3/uL Normal 0.0-0.2 [facility] Comment on above: Result Comment: PERF ORMED BY: [place] [address] PATHOLOGIST RN COMMUNITY ARACELI HOLLEY M.D. Performed By: #### B MP, CBC #### [address] Automated blood monocyte cou ntOrdered By: Say Summers on 04-16-2024 Monocytes (Bld) [#/Vol] 0.7 10*3/uL Normal 0.0-0.8 [facility] Comment on above: Performed By: #### B MP, CBC #### [facility] [address] [place] [address] [place] Automated eosinophil %Ordere d By: Say Summers on 06-17-2024 Eosinophils/100 WBC (Bld) 6.3 % Normal . [facility] Comment on above: Performed By: #### B MP, CBC #### [address] Automated eosinophil countOr dered By: Say Summers on 04-16-2024 Eosinophils (Bld) [#/Vol] 0.5 10*3/uL High 0.0-0.45 [facility] Comment on above: Performed By: #### B MP, CBC #### [address] Automated monocyte %Ordered By: Say Summers on 04-16-2024 Monocytes/100 WBC (Bld) 8.7 % Normal . [facility] Comment on above: Performed By: #### B MP, CBC #### [address] Automated neutrophil %Ordere d By: Say Summers on 04-16-2024 Neutrophils/100 WBC (Bld) 62.7 % Normal . [facility] Comment on above: Performed By: #### B MP, CBC #### [address] Basic Metabolic Panelon 03-31 GFR/1.73 sq M.predicted MDRD (S/P/Bld) [Vol rate/Area] 52.325 mL/min/{1.73_m2} Normal [facility] Comment on above: Performed By: #### B MP, CBC #### [address] Calcium [Mass/volume] in Ser um or PlasmaOrdered By: Say Summers on 04-16-2024 Calcium [Mass/Vol] 8.8 mg/dL Normal 8.6-10.3 [facility] Comment on above: Result Comment: PERF ORMED BY: [place] [address] PATHOLOGIST RN COMMUNITY ARACELI HOLLEY M.D. Performed By: #### B MP, CBC #### [address] Carbon dioxide, total [Moles /volume] in Serum or PlasmaOrdered By: Say Summers on 04-16-2024 CO2 [Moles/Vol] 25.6 mmol/L Normal 21.0-31.0 [facility] Comment on above: Performed By: #### B MP, CBC #### [address] Chloride [Moles/volume] in S ramos or PlasmaOrdered By: Say Summers on 04-16-2024 Chloride [Moles/Vol] 106 mmol/L Normal 98-107 [facility] Comment on above: Performed By: #### B MP, CBC #### [address] Complete Blood Count Auto Di ffon 04-16-2024 Mean Corpuscular HGB Conc 33.9 g/dL Normal 32.0-35.0 [facility] Comment on above: Performed By: #### B MP, CBC #### [address] NRBC% 0.1 /100{WBC} Normal 0-0.5 [facility] Comment on above: Performed By: #### B MP, CBC #### [address] Creatinine [Mass/volume] in Serum or PlasmaOrdered By: Say Summers on 04-16-2024 Creatinine [Mass/Vol] 1.30 mg/dL High 0.60-1.20 [facility] Comment on above: Performed By: #### B MP, CBC #### [address] Erythrocyte distribution wid th [Ratio] by Automated countOrdered By: Say Summers on 04-16-2024 Erythrocyte distribution width (RBC) [Ratio] 13.6 % Normal 11.9-15.3 [facility] Comment on above: Performed By: #### B MP, CBC #### [place] [address] [place] Erythrocytes [#/volume] in B lood by Automated countOrdered By: Say Summers on 04-16-2024 RBC (Bld) [#/Vol] 4.10 10*6/uL Normal 3.60-5.[address] [facility] Comment on above: Performed By: #### B EMMANUEL, CBC #### [address] Glucose [Mass/volume] in Ser um or PlasmaOrdered By: Say Summers on 04-16-2024 Glucose [Mass/Vol] 63 mg/dL Low 70-100 [facility] Comment on above: ADA recommended refe rence rangeRandom Glucose Reference Range is dependent on time and content of last meal. Glucose of more than 200 mg/dL in a nonstressed, ambulatory subject supports the diagnosis of Diabetes Mellitus. Result Comment: [place] Glucose Reference Range is dependent on time and content of last meal. Glucose of more than 200 mg/dL in a nonstressed, ambulatory subject supports the diagnosis of Diabetes Mellitus. ADA recommended reference range Performed By: #### B EMMANUEL, CBC #### [address] Hematocrit [Volume Fraction] of Blood by Automated countOrdered By: Say Summers on 04-16-2024 Hematocrit (Bld) [Volume fraction] 40.2 % Normal 34.0-46.4 [facility] Comment on above: Performed By: #### B EMMANUEL, CBC #### [address] Hemoglobin [Mass/volume] in BloodOrdered By: Say Summers on 04-16-2024 Hemoglobin (Bld) [Mass/Vol] 13.6 g/dL Normal 11.8-15.4 [facility] Comment on above: Performed By: #### B EMMANUEL, CBC #### [place] [address] [place] Leukocytes [#/volume] correc tabatha for nucleated erythrocytes in Blood by Automated counOrdered By: Say Summers on 04-16-2024 WBC corrected for nucl RBC Auto (Bld) [#/Vol] 8.3 10*3/uL 3.8-11.6 [facility] Leukocytes [#/volume] in Blo od by Automated countOrdered By: Say Summers on 04-16-2024 WBC (Bld) [#/Vol] 8.3 10*3/uL Normal 3.8-11.6 [facility] Comment on above: Performed By: #### B MP, CBC #### [facility] [address] Lymphocytes [#/volume] in Bl ood by Automated countOrdered By: Say Summers on 04-16-2024 Lymphocytes (Bld) [#/Vol] 1.8 10*3/uL Normal 1.00-4.8 [facility] Comment on above: Performed By: #### B MP, CBC #### [address] Lymphocytes/100 leukocytes i n Blood by Automated countOrdered By: Say Summers on 04-16-2024 Lymphocytes/100 WBC (Bld) 22.0 % Normal . [facility] Comment on above: Performed By: #### B MP, CBC #### [address] MCH [Entitic mass] by Automa tabatha countOrdered By: Say Summers on 04-16-2024 MCH (RBC) [Entitic mass] 33.3 pg Normal 24.7-34.3 [facility] Comment on above: Performed By: #### B MP, CBC #### [address] MCHC Auto (RBC) [Mass/Vol]Or dered By: Say Summers on 04-16-2024 MCHC (RBC) [Mass/Vol] 33.9 g/dL 32.0-35.0 [facility] MCV [Entitic volume] by Auto mated countOrdered By: Say Summers on 04-16-2024 MCV (RBC) [Entitic vol] 98.2 fL Normal 80-100 [facility] Comment on above: Performed By: #### B MP, CBC #### [place] [address] [place] Neutrophils [#/volume] in Bl ood by Automated countOrdered By: Say Summers on 04-16-2024 Neutrophils (Bld) [#/Vol] 5.2 10*3/uL Normal 1.8-7.7 [facility] Comment on above: Performed By: #### B MP, CBC #### [address] No Panel InformationOrdered By: Say Summers on 04-16-2024 Estimated GFR (CKD-EPI) 52.325 mL/Min [facility] Creatinine Clearance (Chem N/A [facility] Nucleated erythrocytes [Pres ence] in Blood by Automated countOrdered By: Say Summers on 04-16-2024 Nucleated RBC Auto Ql (Bld) 0.1 /100{WBC} 0-0.5 [facility] Platelet mean volume [Entiti c volume] in Blood by Automated countOrdered By: Say Summers on 04-16-2024 Platelet mean volume (Bld) [Entitic vol] 9.3 fL Normal 6.3-10.7 [facility] Comment on above: Performed By: #### B MP, CBC #### [facility] [address] [place] [address] Platelets [#/volume] in Bloo d by Automated countOrdered By: Say Summers on 04-16-2024 Platelets (Bld) [#/Vol] 205 10*3/uL Normal 150-450 [facility] Comment on above: Performed By: #### B MP, CBC #### [facility] [address] [place] [address] Potassium [Moles/volume] in Serum or PlasmaOrdered By: Say Summers on 04-16-2024 Potassium [Moles/Vol] 4.3 mmol/L Normal 3.5-5.1 [facility] Comment on above: Performed By: #### B MP, CBC #### [address] Serum or plasma anion gap de terminationOrdered By: Say Summers on 04-16-2024 Anion gap [Moles/Vol] 11.7 mmol/L Normal 6.0-15.0 [facility] Comment on above: Performed By: #### B MP, CBC #### [facility] [address] Sodium [Moles/volume] in Ser um or PlasmaOrdered By: Say Summers on 04-16-2024 Sodium [Moles/Vol] 139 mmol/L Normal 136-145 [facility] Comment on above: Performed By: #### B MP, CBC #### [facility] [address] Urea nitrogen [Mass/volume] in Serum or PlasmaOrdered By: Say Summers on 04-16-2024 Urea nitrogen [Mass/Vol] 12 mg/dL Normal 7-25 [facility] Comment on above: Performed By: #### B MP, CBC #### [facility] [address] CBC AND AUTO DIFFon 10-28-20 ABSOLUTE BASOPHIL 0.1 X10E9/L Normal 0.0-0.2 [facility] Comment on above: Performed By: #### 1 08-9, , CBCA, CMP, 37259-2 #### [facility] ([id number]) [address] [place] [address]67[address] ABSOLUTE NEUTROPHIL 10.5 X10E9/L High 1.5-6.6 [facility] Comment on above: Performed By: #### 1 39-9, , CBCA, CMP, 55671-4 #### [facility] ([id number]) [address] [place] [address] 83799 Basophils/100 WBC (Bld) 0.4 % Normal [facility] Comment on above: Performed By: #### 1 399, , CBCA, CMP, 77593-2 #### [facility] ([id number]) [address] [place] [address] 84184 Eosinophils (Bld) [#/Vol] 0.3 10*3/uL Normal 0.0-0.4 [facility] Comment on above: Performed By: #### 1 9, , CBCA, CMP, 39956-4 #### [facility] ([id number]) [address] [place] [address] 59816 Eosinophils/100 WBC (Bld) 2.2 % Normal [facility] Comment on above: Performed By: #### 1 9, , CBCA, CMP, 85708-9 #### [facility] ([id number]) [address] [place] [address] 82697 Erythrocyte distribution width (RBC) [Ratio] 15.2 % High 11.5-15.0 [facility] Comment on above: Performed By: #### 1 9, , CBCA, CMP, 54742-0 #### [facility] ([id number]) [address] [place] [address] 83602 Hematocrit (Bld) [Volume fraction] 42.7 % Normal 35-47 [facility] Comment on above: Performed By: #### 1 9, , CBCA, CMP, 85858-1 #### [facility] ([id number]) [address] [place] [address] 36720 Hemoglobin (Bld) [Mass/Vol] 14.6 g/dL Normal 11.7-15.5 [facility] Comment on above: Performed By: #### 1 9, , CBCA, CMP, 61399-9 #### [facility] ([id number]) [address] [place] [address] 10724 Lymphocytes (Bld) [#/Vol] 1.7 10*3/uL Normal 1.0-3.5 [facility] Comment on above: Performed By: #### 1 9, , CBCA, CMP, 05423-9 #### [facility] ([id number]) [address] [place] [address] 97259 Lymphocytes/100 WBC (Bld) 12.8 % Normal [facility] Comment on above: Performed By: #### 1 9, , CBCA, CMP, 36988-9 #### [facility] ([id number]) [address] [place] [address] 88505 MCH (RBC) [Entitic mass] 33.8 pg Normal 27-34 [facility] Comment on above: Performed By: #### 1 838-9, , CBCA, CMP, 48157-2 #### [facility] ([id number]) [address] [place] [address] 40512 MCHC (RBC) [Mass/Vol] 34.3 g/dL Normal 32-36 [facility] Comment on above: Performed By: #### 1 9, , CBCA, CMP, 58704-1 #### [facility] ([id number]) [address] [place] [address] 53623 MCV (RBC) [Entitic vol] 99 fL Normal 80-100 [facility] Comment on above: Performed By: #### 1 9, , CBCA, CMP, 38176-1 #### [facility] ([id number]) [address] [place] [address] 08170 Monocytes (Bld) [#/Vol] 0.8 10*3/uL Normal 0-0.9 [facility] Comment on above: Performed By: #### 1 9, , CBCA, CMP, 53754-8 #### [facility] ([id number]) [address] [place] [address] 71218 Monocytes/100 WBC (Bld) 5.7 % Normal [facility] Comment on above: Performed By: #### 1 08-9, , CBCA, CMP, 52560-8 #### [facility] ([id number]) [address] [place] [address] 14229 Neutrophils/100 WBC (Bld) 78.9 % Normal [facility] Comment on above: Performed By: #### 1 39-9, , CBCA, CMP, 99558-4 #### [facility] ([id number]) [address] [place] [address] 69714 Platelet mean volume (Bld) [Entitic vol] 8.6 fL Normal 7-12 [facility] Comment on above: Performed By: #### 1 838-9, , CBCA, CMP, 97114-0 #### [facility] ([id number]) [address] [place] [address] 39155 Platelets (Bld) [#/Vol] 247 10*3/uL Normal 150-450 [facility] Comment on above: Result Comment: PLAT ELETS REVIEWED Performed By: #### 1 9, , CBCA, CMP, 81447-2 #### [facility] ([id number]) [address] [place] [address] 27637 RBC COUNT 4.32 X10E12/L Normal 3.80-5.20 [facility] Comment on above: Performed By: #### 1 9, , CBCA, CMP, 38101-4 #### [facility] ([id number]) [address] [place] [address] 95099 WBC (Bld) [#/Vol] 13.3 10*3/uL High 4.0-11.0 [facility] Comment on above: Performed By: #### 1 08399, , CBCA, CMP, 53455-6 #### [facility] ([id number]) [address] [place] [address] 43775 COMPREHENSIVE METABOLIC PANE Scott 10-28-2023 Albumin [Mass/Vol] 4.0 g/dL Normal 3.2-5.3 [facility] Comment on above: Performed By: #### 1 0839-9, 17444-9, CBCA, CMP, 38831-3 #### [facility] ([id number]) [address] [place] [address] 27987 ALP [Catalytic activity/Vol] 76 U/L Normal 39-130 [facility] Comment on above: Performed By: #### 1 0839-9, 39241-7, CBCA, CMP, 14378-6 #### [facility] ([id number]) [address] [place] [address] 85489 ALT [Catalytic activity/Vol] 18 U/L Normal 0-31 [facility] Comment on above: Performed By: #### 1 39-9, , CBCA, CMP, 78630-0 #### [facility] ([id number]) [address] [place] [address] 58939 Anion gap [Moles/Vol] 3 mmol/L Low 5-15 [facility] Comment on above: Performed By: #### 1 0839-9, , CBCA, CMP, 69998-5 #### [facility] ([id number]) [address] [place] [address] 48431 AST [Catalytic activity/Vol] 20 U/L Normal 0-41 [facility] Comment on above: Performed By: #### 1 0839-9, 24664-1, CBCA, CMP, 12367-7 #### [facility] ([id number]) [address] [place] [address] 89085 Bilirubin [Mass/Vol] 0.8 mg/dL Normal 0.3-1.[address] [facility] Comment on above: Performed By: #### 1 0839-9, , CBCA, CMP, 75847-1 #### [facility] ([id number]) [address] [place] [address] 40793 Calcium [Mass/Vol] 8.6 mg/dL Normal 8.5-10.5 [facility] Comment on above: Performed By: #### 1 39-9, , CBCA, CMP, 41556-0 #### [facility] ([id number]) [address] [place] [address] 13399 Chloride [Moles/Vol] 113 mmol/L High 98-[address] [facility] Comment on above: Performed By: #### 1 39-9, , CBCA, CMP, 14189-7 #### [facility] ([id number]) [address] [place] [address] 86071 CO2 [Moles/Vol] 22 mmol/L Normal 22-32 [facility] Comment on above: Performed By: #### 1 0839-9, , CBCA, CMP, 65479-1 #### [facility] ([id number]) [address] [place] [address] 12891 Creatinine [Mass/Vol] 1.15 mg/dL High 0.40-1.00 [facility] Comment on above: Result Comment: METH OD TRACEABLE TO IDMS STANDARD Performed By: #### 1 39-9, , CBCA, CMP, 89239-5 #### [facility] ([id number]) [address] [place] [address] 28757 GFR/1.73 sq M.predicted among non-blacks MDRD (S/P/Bld) [Vol rate/Area] 61 mL/min/{1.73_m2} Normal >59 [facility] Comment on above: Result Comment: Reported eGFR is based on the CKD-EPI 2020 equation that does not use a race coefficient. Performed By: #### 1 838-9, , CBCA, CMP, 30454-5 #### [facility] ([id number]) [address] [place] [address] 73937 Glucose [Mass/Vol] 84 mg/dL Normal 65-99 [facility] Comment on above: Performed By: #### 1 838-9, , CBCA, CMP, 44534-9 #### [facility] ([id number]) [address] [place] [address] 20857 Potassium [Moles/Vol] 4.7 mmol/L Normal 3.5-5.0 [facility] Comment on above: Performed By: #### 1 9, , CBCA, CMP, 10621-5 #### [facility] ([id number]) [address] [place] [address] 21161 Protein [Mass/Vol] 6.9 g/dL Normal 6.0-8.0 [facility] Comment on above: Performed By: #### 1 9, , CBCA, CMP, 16751-4 #### [facility] ([id number]) [address] [place] [address] 41587 Sodium [Moles/Vol] 138 mmol/L Normal 134-146 [facility] Comment on above: Performed By: #### 1 9, , CBCA, CMP, 68991-1 #### [facility] ([id number]) [address] [place] [address] 17491 Urea nitrogen [Mass/Vol] 12 mg/dL Normal 5-23 [facility] Comment on above: Performed By: #### 1 9, , CBCA, CMP, 77563-1 #### [facility] ([id number]) [address] [place] [address] BRAIN WO CONTon 3 CT BRAIN [...] dose to as low as reasonably achievable. Workstation:[id number] Finalized by Ronni Roblero MD on 10/28/2023 5:13 PM Normal [facility] Fibrin D-dimer DDU (PPP) [Ma ss/Vol]on 10-28-2023 D DIMER <150 Normal <255 [facility] Comment on above: Result Comment: Results <255 ng/mL DDU: The presence of a VTE can safely be excluded with a negative D-Dimer result and Wells score. A negative result doesn't exclude the possibility of DIC. The test be repeated along with other diagnostic tests if the patient's symptoms persist or worsen. [email or web address] Performed By: #### 1 0839-9, , CBCA, CMP, 07612-8 #### [facility] ([id number]) [address] [place] [address] 16196 MAGNESIUMon 10-28-2023 Magnesium [Mass/Vol] 2.0 mg/dL Normal 1.8-2.[address] [facility] Comment on above: Performed By: #### 1 0839-9, , CBCA, CMP, 29912-8 #### [facility] ([id number]) [address] [place] [address] 36385 SARS/FLU A+B/RSV by NAAT/Mol [facility] 10-28-2023 SARS/FLU A+B/RSV by NAAT/Molecular FLU A [...] operators who are performing tests using either Merkle DX or Ziios systems and is limited to laboratories that [...] repeat. Fact Sheet for Healthcare Providers: https://www.fda.gov /media/939057/downl oad Fact Sheet for Patients: https://www.fda.gov /media/624772/downl oad [facility] Comment on above: Performed By: #### C OVFLR #### [facility] ([id number]) [address] [place] [address] 65135 TROPONIN Ion 10-28-2023 Troponin I.cardiac [Mass/Vol] ng/mL Normal 0.00-0.04 [facility] Comment on above: Performed By: #### 1 0839-9, 57304-7, CBCA, CMP, 58004-5 #### [facility] ([id number]) [address] [place] [address]1558 URN MACROSCOPIC NURon 2022 BILIRUBIN OLIVIA Negative Normal NEG [facility] Comment on above: Performed By: #### N UM #### [facility] ([id number]) [address] [place] [address] 78348 BLOOD/HGB OLIVIA Trace Abnormal NEG [facility] Comment on above: Performed By: #### N UM #### [facility] ([id number]) [address] [place] [address] [place] [address] GLUCOSE OLIVIA Negative Normal NEG [facility] Comment on above: Performed By: #### N UM #### [facility] ([id number]) [address] [place] [address] [place] [address] KETONES OLIVIA Negative Normal NEG [facility] Comment on above: Performed By: #### N UM #### [facility] ([id number]) [address] [place] [address] [place] [address] LEUKOCYTE ESTERASE OLIVIA Negative Normal NEG [facility] Comment on above: Performed By: #### N UM #### [facility] ([id number]) [address] [place] [address] [place] [address] NITRITE OLIVIA Negative Normal NEG [facility] Comment on above: Performed By: #### N UM #### [facility] ([id number]) [address] [place] [address] 30933 PH OLIVIA 6.0 Normal 5.0-8.5 [facility] Comment on above: Performed By: #### N UM #### [facility] ([id number]) [address] [place] [address] 17270 PROTEIN OLIVIA Negative Normal NEG [facility] Comment on above: Performed By: #### N UM #### [facility] ([id number]) [address] [place] [address] 601[address] SPECIFIC GRAVITY OLIVIA 1.010 Normal 1.003-1.035 [facility] Comment on above: Performed By: #### N UM #### [facility] ([id number]) [address] [place] [address] 09017 UROBILINOGEN OLIVIA 0.2 eu/dL Normal <1.[address] [facility] Comment on above: Performed By: #### N UM #### [facility] ([id number]) [address] [place] [address]46 COVID/FLU/RSV RT-PCRon 12-24 SARS-CoV-2 (COVID-19) RNA KAREN+probe Ql (Unsp spec) Negative [facility] [employer] Other COVID/FLU/RSV RT-PCR Negative [facility] Other SARS-CoV-2 (COVID-19) RNA NA A+probe Ql (Resp)on 06-01-2022 SARS-CoV-2 (COVID-19) RNA KAREN+probe Ql (Unsp spec) Positive [facility] [employer] Other REJI by IFAon 03-22-2022 Antinuclear Antibodies, IFA Negative Normal [facility] Comment on above: Result Comment: Nega tive <1:80 Borderline 1:80 Positive >1:80 ICAP nomenclature: AC-0 For more information about Hep-2 cell patterns use ANApatterns.org, the official website for the International Consensus on Antinuclear Antibody (REJI) Patterns (ICAP). Performed By: #### A NAIFA #### [facility] [address] [place] [address] Dr. Andre Haynes THYROID ANTIBODIESon 022 Thyroglobulin Antibody <1.0 Normal 0.0-0.9 [facility] Comment on above: Result Comment: Thyr oglobulin Antibody measured by [employer]. Methodology Performed By: #### T HYRABS #### [facility] [address] [place] [address] Dr. Andre Haynes Thyroid Peroxidase (TPO) Ab 10 IU/mL Normal 0-34 [facility] Comment on above: Performed By: #### T HYBS #### [facility] [address] [place] [address] Dr. Andre Haynes ANTISTREPTOLYSIN O AB (ASO)o n 03-19-2022 Antistreptolysin O Ab <20.0 Normal 0.0-200.0 [facility] Comment on above: Performed By: #### A SOAB #### [facility] [address] [place] [address] Dr. Andre Haynes RHEUMATOID FACTORon 03-19-20 22 RA Latex Turbid. <10.0 Normal <14.0 [facility] Comment on above: Performed By: #### R F #### [facility] [address] [place] [address] Dr. Andre Haynes CBC AUTO DIFFon 03-18-2022 BASO # 0.0 103/ul Normal 0.0-0.1 [facility] Comment on above: Performed By: #### C BC #### [facility] [address] [place] [address] Dr. Andre Haynes Basophils/100 WBC (Bld) 0.3 % Normal 0.2-2.0 [facility] Comment on above: Performed By: #### C BC #### [facility] [address] [place] [address] Dr. Andre Haynes EO # 0.4 103/ul Normal 0.0-0.7 [facility] Comment on above: Performed By: #### C BC #### [facility] [address] [place] [address] Dr. Andre Haynes Eosinophils/100 WBC (Bld) 4.0 % Normal 0.9-7.0 [facility] Comment on above: Performed By: #### C BC #### [facility] [address] [place] [address] Dr. Andre Haynes Erythrocyte distribution width (RBC) [Ratio] 12.5 % Normal 11.0-15.0 [facility] Comment on above: Performed By: #### C BC #### [facility] [address] [place] [address] Dr. Andre Haynes Hematocrit (Bld) [Volume fraction] 41.9 % Normal 36.0-48.0 [facility] Comment on above: Performed By: #### C BC #### [facility] [address] [place] [address] Dr. Andre Haynes Hemoglobin (Bld) [Mass/Vol] 14.4 g/dL Normal 12.0-16.0 [facility] Comment on above: Performed By: #### C BC #### [facility] [address] [place] [address] Dr. Andre Haynes IG # 0.04 10e3/ul Critically high 0.00-0.03 [facility] Comment on above: Performed By: #### C BC #### [facility] [address] [place] [address] Dr. Andre Haynes IG % 0.4 % Normal 0.0-0.5 [facility] Comment on above: Performed By: #### C BC #### [facility] [address] [place] [address] Dr. Andre Haynes LYMPH # 2.6 103/ul Normal 1.2-3.8 [facility] Comment on above: Performed By: #### C BC #### [facility] [address] [place] [address] Dr. Andre Haynes Lymphocytes/100 WBC (Bld) 29.2 % Normal 20.5-60.0 [facility] Comment on above: Performed By: #### C BC #### [facility] [address] [place] [address] Dr. Andre Haynes MANUAL DIFF REQ NO Normal [facility] Comment on above: Performed By: #### C BC #### [facility] [address] [place] [address] Dr. Andre Hayens MCH (RBC) [Entitic mass] 33.3 pg Normal 26.7-34.0 [facility] Comment on above: Performed By: #### C BC #### [facility] [address] [place] [address] Dr. Andre Haynes MCHC (RBC) [Mass/Vol] 34.4 g/dL Normal 29.9-35.2 [facility] Comment on above: Performed By: #### C BC #### [facility] [address] [place] [address] Dr. Andre Haynes MCV (RBC) [Entitic vol] 97.0 fL Normal 81.0-99.0 [facility] Comment on above: Performed By: #### C BC #### [facility] [address] [place] [address] Dr. Andre Haynes MONO # 0.6 103/ul Normal 0.3-0.8 [facility] Comment on above: Performed By: #### C BC #### [facility] [address] [place] [address] Dr. Andre Haynes Monocytes/100 WBC (Bld) 6.4 % Normal 1.7-12.0 [facility] Comment on above: Performed By: #### C BC #### [facility] [address] [place] [address] Dr. Andre Haynes NEUT # 5.4 103/ul Normal 1.4-6.5 [facility] Comment on above: Performed By: #### C BC #### [facility] [address] [place] [address] Dr. Andre Haynes Neutrophils/100 WBC (Bld) 59.7 % Normal 43.0-75.0 [facility] Comment on above: Performed By: #### C BC #### [facility] [address] [place] [address] Dr. Andre Haynes Platelet mean volume (Bld) [Entitic vol] 9.9 fL Normal 9.5-13.5 [facility] Comment on above: Performed By: #### C BC #### [facility] [address] [place] [address] Dr. Andre Haynes PLT 217 103/ul Normal 150-450 [facility] Comment on above: Performed By: #### C BC #### [facility] [address] [place] [address] Dr. Andre Haynes RBC 4.32 106/ul Normal 4.20-5.40 [facility] Comment on above: Performed By: #### C BC #### [facility] [address] [place] [address] Dr. Andre Haynes WBC 9.0 103/ul Normal 4.0-11.0 [facility] Comment on above: Performed By: #### C BC #### [facility] [address] [place] [address] Dr. Andre Haynes CRPon 03-18-2022 CRP [Mass/Vol] mg/L Normal <=1.0 [facility] Comment on above: Performed By: #### R F #### [facility] [address] [place] [address] Dr. Andre Haynes FERRITINon 03-18-2022 Ferritin [Mass/Vol] 35.0 ng/mL Normal 6.2-137.0 [facility] Comment on above: Performed By: #### R F #### [facility] [address] [place] [address] Dr. Andre Haynes FREE T3on 03-18-2022 FREE T3 3.61 pg/mlL Normal 2.18-3.98 [facility] Comment on above: Performed By: #### R F #### [facility] [address] [place] [address] Dr. Andre Haynes FREE T4on 03-18-2022 Free T4 [Mass/Vol] 1.00 ng/dL Normal 0.76-1.46 [facility] Comment on above: Performed By: #### R F #### [facility] [address] [address] [address] Andre Haynes IRONon 03-18-2022 Iron [Mass/Vol] 87.0 ug/dL Normal 50.0-170.0 [facility] Comment on above: Performed By: #### R F #### [facility] [address] [address] [address] Andre Haynes LIVER PROFILEon 03-18-2022 Albumin [Mass/Vol] 3.7 g/dL Normal 3.4-5.0 [facility] Comment on above: Performed By: #### R F #### [facility] [address] [address] [address] Andre Haynes Albumin/Globulin [Mass ratio] 1.3 {ratio} Normal [facility] Comment on above: Performed By: #### R F #### [facility] [address] [place] [address] Dr. Andre Haynes ALP [Catalytic activity/Vol] 74 U/L Normal 46-116 [facility] Comment on above: Performed By: #### R F #### [facility] [address] [place] [address] Dr. Andre Haynes ALT [Catalytic activity/Vol] 24 U/L Normal 14-59 [facility] Comment on above: Performed By: #### R F #### [facility] [address] [place] [address] Dr. Andre Haynes AST [Catalytic activity/Vol] 13 U/L Critically low 15-37 [facility] Comment on above: Performed By: #### R F #### [facility] [address] [place] [address] Dr. Andre Haynes BILI, CONJUGATED 0.1 mg/dL Normal 0.0-0.2 [facility] Comment on above: Performed By: #### R F #### [facility] [address] [place] [address] Dr. Andre Haynes Bilirubin [Mass/Vol] 0.3 mg/dL Normal 0.2-1.0 [facility] Comment on above: Performed By: #### R F #### [facility] [address] [place] [address] Dr. Andre Haynes Globulin (S) [Mass/Vol] 2.8 g/dL Normal T [facility] Comment on above: Performed By: #### R F #### [facility] [address] [place] [address] Dr. Andre Haynes Protein [Mass/Vol] 6.5 g/dL Normal 6.4-8.2 [facility] Comment on above: Performed By: #### R F #### [facility] [address] [place] [address] Dr. Andre Haynes PROF CHEM 8 (BAS METB)on Anion gap [Moles/Vol] 12.0 mmol/L Normal [facility] Comment on above: Performed By: #### F T3, LIVER, BMP, TSH, URIC, CRP #### [facility] [address] [place] [address] Dr. Andre Haynes Calcium [Mass/Vol] 8.8 mg/dL Normal 8.5-10.1 [facility] Comment on above: Performed By: #### F T3, LIVER, BMP, TSH, URIC, CRP #### [facility] [address] [place] [address] Dr. Andre Haynes Chloride [Moles/Vol] 104 mmol/L Normal 98-107 [facility] Comment on above: Performed By: #### F T3, LIVER, BMP, TSH, URIC, CRP #### [facility] [address] [place] [address] Dr. Andre Haynes CO2 [Moles/Vol] 25.8 mmol/L Normal 21.0-32.0 [facility] Comment on above: Performed By: #### F T3, LIVER, BMP, TSH, URIC, CRP #### [facility] [address] [place] [address] Dr. Anrde Haynes Creatinine [Mass/Vol] 1.05 mg/dL Critically high 0.55-1.02 [facility] Comment on above: Performed By: #### F T3, LIVER, BMP, TSH, URIC, CRP #### [facility] [address] [address] [address] Andre Haynes EGFR-AF TONGAN >60 Normal >=60 [facility] Comment on above: Performed By: #### F T3, LIVER, BMP, TSH, URIC, CRP #### [facility] [address] [address] [address] Andre Haynes EGFR-NON AF TONGAN 58 mL/min/1.73m2 Critically low >=60 [facility] Comment on above: Performed By: #### F T3, LIVER, BMP, TSH, URIC, CRP #### [facility] [address] [address] [address] Andre Hayens Glucose [Mass/Vol] 85 mg/dL Normal 74-106 [facility] Comment on above: Performed By: #### F T3, LIVER, BMP, TSH, URIC, CRP #### [facility] [address] [address] [address] Andre Haynes Potassium [Moles/Vol] 3.8 mmol/L Normal 3.5-5.1 [facility] Comment on above: Performed By: #### F T3, LIVER, BMP, TSH, URIC, CRP #### [facility] [address] [address] [address] Andre Haynes Sodium [Moles/Vol] 138 mmol/L Normal 136-145 [facility] Comment on above: Performed By: #### F T3, LIVER, BMP, TSH, URIC, CRP #### [facility] [address] [address] [address] Andre Haynes Urea nitrogen [Mass/Vol] 11.0 mg/dL Normal 7.0-18.0 [facility] Comment on above: Performed By: #### F T3, LIVER, BMP, TSH, URIC, CRP #### [facility] [address] [address] [address] Andre Haynes Urea nitrogen/Creatinine [Mass ratio] 10.5 mg/mg Normal [facility] Comment on above: Performed By: #### F T3, LIVER, BMP, TSH, URIC, CRP #### [facility] [address] [address] [address] Andre Haynes PROTIMEon 03-18-2022 INR Coag (PPP) [Relative time] 1.01 {INR} Normal [facility] Comment on above: Performed By: #### P TT, PT #### [facility] [address] [place] [address] Dr. Andre Haynes INR GUIDELINES SEE BELOW Normal [facility] Comment on above: Result Comment: BRICE RED INR: 2.0 - 3.0 CONDITIONS NOT LISTED BELOW 2.5 - 3.5 FOR PROSTHETIC HEART VALVE REPLACEMENT 2.5 - 3.5 RECURRENT THROMBOSIS Performed By: #### P TT, PT #### [facility] [address] [place] [address] Dr. Andre Haynes PT Coag (PPP) [Time] 10.9 s Normal 9.0-11.6 [facility] Comment on above: Performed By: #### P TT, PT #### [facility] [address] [place] [address] Dr. Andre Haynes PTTon 03-18-2022 aPTT Coag (Bld) [Time] 27.2 s Normal 22.3-36.2 [facility] Comment on above: Performed By: #### P TT, PT #### [facility] [address] [place] [address] Dr. Andre Haynes SED RATE [facility] 2021 SED RATE 1 mm/hr Normal <=20 [facility] Comment on above: Performed By: #### A SOAB #### [facility] [address] [place] [address] Dr. Andre Haynes TSHon 03-18-2022 TSH 2.218 uIU/mL Normal 0.358-3.740 [facility] Comment on above: Performed By: #### R F #### [facility] [address] [place] [address] Dr. Andre Haynes TSH RANGE SEE BELOW Normal [facility] Comment on above: Result Comment: <0.3 4 UIU/ml HYPERTHYROID 0.34-5.60 UIU/ml EUTHYROID >5.60 UIU/ml HYPOTHYROID Performed By: #### R F #### [facility] [address] [place] [address] Dr. Andre Haynes UA (CLEAN/CATCH) CLEANING VALIDATION CONSULTANT/MICRO I F IND.on 03-18-2022 Bilirubin Ql (U) Negative Normal NEGATIVE [facility] Comment on above: Performed By: #### R F #### [facility] [address] [place] [address] Dr. Andre Haynes Clarity (U) CLEAR Normal CLEAR [facility] Comment on above: Performed By: #### R F #### [facility] [address] [place] [address] Dr. Andre Haynes Color (U) YELLOW Normal YELLOW [facility] Comment on above: Performed By: #### R F #### [facility] [address] [place] [address] Dr. Andre Haynes Glucose Ql (U) Negative Normal NEGATIVE [facility] Comment on above: Performed By: #### R F #### [facility] [address] [place] [address] Dr. Andre Haynes Hemoglobin Ql (U) Negative Normal NEGATIVE [facility] Comment on above: Performed By: #### R F #### [facility] [address] [place] [address] Dr. Andre Haynes Ketones Ql (U) Negative Normal NEGATIVE [facility] Comment on above: Performed By: #### R F #### [facility] [address] [place] [address] Dr. Andre Haynes LEUKOCYTES Negative Normal NEGATIVE [facility] Comment on above: Performed By: #### R F #### [facility] [address] [place] [address] Dr. Andre Haynes Nitrite Ql (U) Negative Normal NEGATIVE [facility] Comment on above: Performed By: #### R F #### [facility] [address] [place] [address] Dr. Andre Haynes pH (U) 6.0 [pH] Normal 5-9 [facility] Comment on above: Performed By: #### R F #### [facility] [address] [place] [address] Dr. Andre Haynes SPEC GRAVITY 1.020 Normal 1.005-<=1.02 5 [facility] Comment on above: Performed By: #### R F #### [facility] [address] [place] [address] Dr. Andre Haynes UA PROTEIN Negative Normal NEGATIVE/ TRACE [facility] Comment on above: Performed By: #### R F #### [facility] [address] [place] [address] Dr. Andre Haynes UR MICRO IND MICROSCOPIC ALREADY ORDERED Normal [facility] Comment on above: Performed By: #### R F #### [facility] [address] [place] [address] Dr. Andre Haynes Urobilinogen Qn (U) 0.2 {Rafal'U}/dL Normal 0.2 - 1. 0 [facility] Comment on above: Performed By: #### R F #### [facility] [address] [place] [address] Dr. Andre Haynes URIC ACID SERUMon 03-18-2022 Urate [Mass/Vol] 3.9 mg/dL Normal 2.6-6.0 [facility] Comment on above: Performed By: #### R F #### [facility] [address] [place] [address] Dr. Andre Haynes URINE MICROSCOPIC ONLYon BACTERIA NONE SEEN Normal NONE SEEN [facility] Comment on above: Performed By: #### R F #### [facility] [address] [place] [address] Dr. Andre Haynes Bacteria identified Cx Nom (U) NOT INDICATED Normal [facility] Comment on above: Performed By: #### R F #### [facility] [address] [place] [address] Dr. Andre Haynes CAST NONE SEEN Normal NONE SEEN [facility] Comment on above: Performed By: #### R F #### [facility] [address] [place] [address] Dr. Andre Haynes Crystals LM Nom (Urine sed) NONE SEEN Normal NONE SEEN [facility] Comment on above: Performed By: #### R F #### [facility] [address] [place] [address] Dr. Andre Haynes Epithelial cells LM Ql (Urine sed) FEW Abnormal NONE SEEN /RARE [facility] Comment on above: Performed By: #### R F #### [facility] [address] [place] [address] Dr. Andre Haynes MUCOUS NONE SEEN Normal NONE SEEN [facility] Comment on above: Performed By: #### R F #### [facility] [address] [place] [address] Dr. Andre Haynes RBC 0-2 Normal 0-2 [facility] Comment on above: Performed By: #### R F #### [facility] [address] [place] [address] Dr. Andre Haynes WBC NONE SEEN Normal NONE SEEN [facility] Comment on above: Performed By: #### R F #### [facility] [address] [place] [address] Dr. Andre Haynes ER URINE PROFILEon 2 Bilirubin Ql (U) Negative Normal NEGATIVE [facility] Comment on above: Performed By: #### E RUR #### [facility] [address] [place] [address] Dr. Andre Haynes Clarity (U) CLEAR Normal CLEAR [facility] Comment on above: Performed By: #### E RUR #### [facility] [address] [place] [address] Dr. Andre Haynes Color (U) LT. YELLOW Normal YELLOW [facility] Comment on above: Performed By: #### E RUR #### [facility] [address] [place] [address] Dr. Adnre Haynes ERUAHD A micrscopic examination will be performed if indicated. Normal [facility] Comment on above: Performed By: #### E RUR #### [facility] [address] [place] [address] Dr. Andre Haynes Glucose Ql (U) Negative Normal NEGATIVE [facility] Comment on above: Performed By: #### E RUR #### [facility] [address] [place] [address] Dr. Andre Haynes Hemoglobin Ql (U) Negative Normal NEGATIVE [facility] Comment on above: Performed By: #### E RUR #### [facility] [address] [place] [address] Dr. Andre Haynes Ketones Ql (U) Negative Normal NEGATIVE [facility] Comment on above: Performed By: #### E RUR #### [facility] [address] [place] [address] Dr. Andre Haynes LEUKOCYTES Negative Normal NEGATIVE [facility] Comment on above: Performed By: #### E RUR #### [facility] [address] [place] [address] Dr. Andre Haynes Nitrite Ql (U) Negative Normal NEGATIVE [facility] Comment on above: Performed By: #### E RUR #### [facility] [address] [place] [address] Dr. Andre Haynes pH (U) 6.0 [pH] Normal 5-9 [facility] Comment on above: Performed By: #### E RUR #### [facility] [address] [place] [address] Dr. Andre Haynes SPEC GRAVITY <=1.005 Abnormal 1.005-<=1.02 5 [facility] Comment on above: Performed By: #### E RUR #### [facility] [address] [place] [address] Dr. Andre Haynes UA PROTEIN Negative Normal NEGATIVE/ TRACE [facility] Comment on above: Performed By: #### E RUR #### [facility] [address] [place] [address] Dr. Andre Haynes UR MICRO IND NOT INDICATED Normal [facility] Comment on above: Performed By: #### E RUR #### [facility] [address] [place] [address] Dr. Andre Haynes Urobilinogen Qn (U) 0.2 {Rafal'U}/dL Normal 0.2 - 1. 0 [facility] Comment on above: Performed By: #### E RUR #### [facility] [address] [address] [address] Andre Haynes XR LSPINE MIN 4 [...] TESS BANGURA Date: 2021-11-19 07:38 Normal The [facility] OUTSIDE CONSULT MSKon 2020 OUTSIDE CONSULT MSK [facility] Department of Radiology [address] [place] [id number] Patient Name: SIMONA LO : 1980 Sex: F Age: Race: White Pt. Location: LPOP Patient Status: Ordered Date: 02/05/2021 3:35:00 PM Completed Date: 02/05/2021 03:51 PM Requesting Provider: OLE TUCKER Attending Provider: Report Copy To: Signs & Symptoms: pt has persistent rt sided pectoralis pain and weakness. Assess pectoralis tendon for injury and/or tear History: Mri of rt shoulder from [facility] dated 11/05/20. Over read requested by Dr Tucker Comments: Exam: OUTSIDE CONSULT MSK OUTSIDE CONSULT MSK 02/05/2021 3:51 PM OUTSIDE STUDY: TECHNIQUE: Outside images of the right shoulder obtained from [facility] dated November 05, 2020. Image [...] interpretation. Electronically signed: Jonathan Huerta. Transcribed by: [email or web address], User Resident: JONATHAN HUERTA Electronically Signed by: JONATHAN HUERTA @ 02/13/2021 12:32 PM I personally read this/these film(s) with this resident Normal The [facility] Vital Signs Date Time Vital Sign Value Performing Clinician Facility 05-28-2024 14:00-0400 Diastolic blood pressure 92 mm[Hg] Ainsley Sellers Work Phone: [facility] 05-28-2024 14:00-0400 Heart rate 89 /min Ainsley Sellers Work Phone: [facility] 05-28-2024 14:00-0400 Respiratory rate 16 /min Ainsley Sellers Work Phone: [facility] 05-28-2024 14:00-0400 SaO2% (BldA) [Mass fraction] 95 % Ainsley Sellers Work Phone: [facility] 05-28-2024 14:00-0400 Systolic blood pressure 125 mm[Hg] Ainsley Sellers Work Phone: [facility] 05-28-2024 12:23-0400 Body temperature 97.9 [degF] Ainsley Sellers Work Phone: [facility] 05-28-2024 11:38-0400 Inhaled oxygen flow rate 8 L/min Ainsley Sellers Work Phone: [facility] 05-28-2024 09:07-0400 Body height 160.02 cm Ainsley Sellers Work Phone: [facility] 05-28-2024 09:07-0400 Body mass index (BMI) [Ratio] 34.7 kg/m2 Ainsley Sellers Work Phone: [facility] 05-28-2024 09:07-0400 Body weight 88.9 kg Ainsley Sellers Work Phone: [facility] 04-05-2024 11:08-0400 Body height 160.02 cm [facility] 04-05-2024 11:08-0400 Body mass index (BMI) [Ratio] 34 kg/m2 [facility] 04-05-2024 11:08-0400 Body weight 87.08 kg [facility] 02-24-2024 09:23-0400 Body height 160.02 cm [facility] 02-24-2024 09:23-0400 Body mass index (BMI) [Ratio] 34.7 kg/m2 [facility] 02-24-2024 09:23-0400 Body weight 89 kg [facility] 01-01-2024 14:16-0500 Body height 160.02 cm [facility] 01-01-2024 14:16-0500 Body mass index (BMI) [Ratio] 31.5 kg/m2 [facility] 01-01-2024 14:16-0500 Body temperature 98.3 [degF] [facility] 01-01-2024 14:16-0500 Body weight 80.73 kg [facility] 01-01-2024 14:16-0500 Heart rate 99 /min [facility] 01-01-2024 14:16-0500 Respiratory rate 18 /min [facility] 01-01-2024 14:16-0500 SaO2% (BldA) [Mass fraction] 98 % [facility] 12-24-2022 09:25-0500 Body height 160.02 cm Aicha Vonnie Other [employer] [facility] [employer] Other 12-24-2022 09:25-0500 Body mass index (BMI) [Ratio] 29.58 kg/m2 Aicha Vonnie Other [employer] Other 12-24-2022 09:25-0500 Body temperature 98.8 [degF] Aicha Vonnie Other [employer] Other 12-24-2022 09:25-0500 Body weight 75.75 kg Aicha Vonnie Other [employer] Other 12-24-2022 09:25-0500 Respiratory rate 18 /min Aicha Vonnie Other [employer] Other 12-24-2022 09:25-0500 SaO2% (BldA) [Mass fraction] 95 % Aicha Vonnie Other [employer] Other 06-01-2022 18:20-0400 Body height 160.02 cm Aicha Shankar Other [employer] Other 06-01-2022 18:20-0400 Body mass index (BMI) [Ratio] 27.45 kg/m2 Aicha Shankar Other [employer] Other 06-01-2022 18:20-0400 Body temperature 99.5 [degF] Aicha Shankar Other [employer] Other 06-01-2022 18:20-0400 Body weight 70.31 kg Aicha Shankar Other [employer] Other 06-01-2022 18:20-0400 Respiratory rate 18 /min Aicha Shankar Other [employer] Other 06-01-2022 18:20-0400 SaO2% (BldA) [Mass fraction] 98 % Aicha Shankar Other [employer] Other Encounters Encounter Date Encounter Type Care Provider Facility Start: 06-26-2024 End: 06-26-2024 ambulatory AINSLEY AICHHOLZ Not Available Start: 06-11-2024 End: 06-11-2024 ambulatory AINSLEY AICHHOLZ Not Available Start: 05-28-2024 End: 05-28-2024 Admission to same day surgery center Ainsley Sellers Work Phone: [facility] [place] Start: 05-28-2024 End: 05-28-2024 ambulatory Ainsley J Verito Work Phone: [facility] Work Phone: Start: 04-26-2024 End: 04-26-2024 ambulatory AINSLEY AICHHOLZ Not Available Start: 04-16-2024 End: 04-16-2024 Patient encounter procedure Ainsley Maoholz Work Phone: [facility] Work Phone: Start: 04-16-2024 End: 04-16-2024 ambulatory Ainsley J Georginahholz Work Phone: [facility] Work Phone: Start: 04-16-2024 Encounter for preprocedural laboratory examination Say Summers [facility] Start: 04-05-2024 End: 04-05-2024 ambulatory [facility] Work Phone: Start: 04-05-2024 End: 04-05-2024 Patient encounter procedure [facility] Neurosurgery Work Phone: Start: 03-29-2024 End: 03-29-2024 ambulatory AINSLEY GEORGINAHHOLZ Not Available Start: 03-22-2024 End: 03-22-2024 ambulatory ODALIS KELBLEY Not Available Start: 03-20-2024 End: 03-23-2024 ambulatory STEPAN RONDONALL Not Available Start: 03-15-2024 End: 03-15-2024 ambulatory ODALIS KELBLEY Not Available Start: 03-13-2024 End: 03-13-2024 ambulatory AINSLEY J GEORGINAHCORINNA [facility] Start: 03-13-2024 End: 03-13-2024 ambulatory RENA SMITH Not Available Start: 03-08-2024 End: 03-08-2024 ambulatory AINSLEY AICHHOLZ Not Available Start: 03-07-2024 End: 03-08-2024 ambulatory RENA SMITH Not Available Start: 02-24-2024 End: 02-24-2024 ambulatory [facility] Work Phone: Start: 02-24-2024 End: 02-24-2024 Patient encounter procedure [facility] Neurosurgery Work Phone: Start: 01-30-2024 End: 01-30-2024 ambulatory AINSLEY AICHHOLZ Not Available Start: 01-18-2024 End: 01-18-2024 ambulatory SWETA BRIGGS Not Available Start: 01-12-2024 End: 01-12-2024 ambulatory AINSLEY VERITO Not Available Start: 01-01-2024 End: 01-01-2024 Patient encounter procedure [facility] Work Phone: Start: 12-22-2023 End: 12-22-2023 ambulatory [facility] [employer] Associate [facility] Comment on above: Encounter for survei llance of injectable contraceptive (Primary Dx) Start: 11-17-2023 End: 11-17-2023 ambulatory AINSLEY GEORGINAHCORINNA Not Available Start: 11-15-2023 Telephone encounter Sharri birmingham [facility] Obstetrics/Gynecology Start: 10-28-2023 End: 10-29-2023 Emergency department patient visit [facility] Start: 10-28-2023 End: 10-29-2023 Emergency department patient visit [facility] Start: 10-06-2023 End: 10-06-2023 ambulatory SHAIKH ANDREWTRIXIE Not Available Start: 12-24-2022 End: 12-24-2022 ambulatory Aicha Shankar Other [employer] Other Start: 12-24-2022 Office outpatient vi sit 25 minutes Aicha Vonnie [facility] Start: 06-01-2022 End: 06-01-2022 ambulatory Aichashirlene Shankar Other [employer] Other Start: 06-01-2022 Office outpatient ne w 30 minutes Aicha Vonnie [facility] Start: 03-18-2022 End: 03-19-2022 ambulatory STORE COORDINATOR AINSLEY AICHHOLZ Facility:[facility] Start: 01-29-2022 End: 01-29-2022 ambulatory STORE COORDINATOR AINSLEY AICHHOLZ Facility:[facility] Start: 11-24-2021 End: 11-27-2021 ambulatory STORE COORDINATOR AINSLEY AICHHOLZ Facility:[facility] Start: 11-18-2021 End: 11-19-2021 ambulatory STORE COORDINATOR AINSLEY SELLERS Facility:[facility] Start: 10-17-2021 End: 10-17-[address] RANDOLPH CADET Facility:[facility] Start: 01-06-2021 End: 01-21-2021 ambulatory PHYSICIAN UNKNOWN Facility:[facility] Procedures Date Procedure Procedure Detail [...] malign ant neoplasm of cervix Pap Smear [facility] Start: 10-28-2024 Tobacco Screening Tobacco Screening [facility] Start: 05-28-2024 [facility] Start: 05-28-2024 [facility] Start: 04-26-2024 Adult BMI Follow Up Plan Adult BMI Follow Up Plan [facility] Start: 04-26-2024 Adult BMI Screening Adult BMI Screen ing [facility] Start: 04-26-2024 Depression Screening Depression Scre ening [facility] Start: 04-15-2024 Screening for malign ant neoplasm of breast Mammogram [facility] Start: 03-13-2024 End: 03-13-2024 ambulatory 03/13/2024 11:45 AM EDT Nurse Injection [facility] [address] [place] [address] [facility] Start: 12-21-2023 End: 12-21-2023 ambulatory 12/21/2023 3:30 PM EST Nurse Injection [facility] [address] [place] [address] [facility] [place] Start: 07-01-2023 COVID-19 Vaccine ( season) COVID-19 Vaccine ( season) [facility] Start: 07-01-2023 Influenza vaccination Influenza Vacc ine [facility] Start: 1999 DTaP,Tdap and Td Vaccines (1 - Tdap) DTaP,Tdap and Td Vaccines (1 - Tdap) [facility] Start: 1980 Tobacco Counseling Tobacco Counselin g [facility] Patient Education Know your Meds [facility] Work Phone: Patient referral [facility] Work Phone: XR Lumbar spine Views [facility] Immunizations Immunization Date Immunization Notes Care Provider Fa cility 09-03-2022 COVID-19 mRNA Bivale nt Booster (Moderna) Ainsley Sellers Work Phone: [facility] 09-03-2022 influenza virus vaccine, unspecified formulation Sharri Gipson [facility] 04-12-2021 COVID-19 mRNA-1273 (Moderna) Ainsley Sellers Work Phone: [facility] 03-15-2021 COVID-19 mRNA-1273 (Moderna) Ainsley Sellers Work Phone: [facility] Payers Date Payer Category Payer Self-pay 2022 Private Health Insurance [facility] [id number] 2022-Present [phone] [address] [address] [place] [address] [id number] .[id number] 2022 Unknown [id number] 2.16.840.1.864654.19 1980 Unknown [id number] 2.16.840.1.980251.3.579 .2.647 1980 Unknown [id number] 2.16.840.1.962075.3.579 .2.593 1980 Unknown [id number] 2.16.840.1.246490.3.579 .2.593 1980 Unknown [id number] 2.16.840.1.103706.3.579 .2.593 1980 Unknown [id number] 2.16.840.1.996729.3.579 .2.593 1980 Unknown [id number] 2.16.840.1.275485.3.579 .2.593 1980 Unknown [id number] 2.16.840.1.435260.3.579 .2.1286 1980 Unknown [id number] 2.16.840.1.230029.3.579 .2.128 1980 Unknown [id number] 2.16840.1.319904.3.579 .2.1285 1980 Unknown [id number] 2.16840.1.483624.3.579 .2.128 1980 Unknown [id number] 2.16.840.1.324417.3.579 .2.1285 1980 Unknown [id number] 2.16.840.1.397792.3.579 .2.1258 1980 Unknown [id number] 2.16.840.1.959087.3.579 .2.9 1980 Unknown [id number] 2.16.840.1.676201.3.579 .2.9 1980 Unknown [id number] 2.16.840.1.281681.3.579 .2.1258 1980 Unknown [id number] 2.16.840.1.979245.3.579 .2.9 1980 Unknown [id number] 2.16.840.1.558355.3.579 .2.1258 1980 Unknown [id number] 2.16.840.1.938684.3.579 .2.1258 1980 Unknown [id number] 2.16.840.1.304954.3.579 .2.1258 1980 Unknown [id number] 2.16.840.1.257600.3.579 .2.1258 1980 Unknown [id number] 2.16.840.1.109549.3.579 .2.1258 1980 Unknown [id number] 2.16.840.1.912586.3.579 .2.1258 1980 Unknown [id number] 2.16.840.1.521496.3.579 .2.1258 1980 Unknown [id number] 2.16.840.1.475981.3.579 .2.1258 1980 Unknown [id number] 2.16.840.1.603017.3.579 .2.1258 1980 Unknown [id number] 2.16.840.1.330977.3.579 .2.1258 1980 Unknown [id number] 2.16.840.1.203580.3.579 .2.9 1959 Unknown [id number] Unknown [id number] 2.16.840.1.457526.3.579 .2.531 Unknown [id number] 2.16.840.1.112086.3.579 .2.531 Worker's Compensation [id number] Social History Date Type Detail Facility Start: 12-10-2020 End: 10-28-2023 Sex Assigned At [facility] [employer] Other Start: 10-31-2000 [facility] Start: 10-31-2000 History of tobacco use Cigarette Smo ker [facility] Start: 12-10-2020 End: 04-12-2023 Cigarettes smoked current (pack per day) - Reported 0.[address] [facility] Start: 04-12-2023 Tobacco use and exposure Smokeless tobacco non-user [facility] Start: 10-28-2023 Alcohol intake Current non-dr retail support specialist of alcohol (finding) [facility] Adolescent depressio n screening assessment [address] [facility] Start: 1980 Sex Assigned At Not on file P [facility] Start: 12-24-2022 Tobacco smoking stat [facility] Never smoked tobacco (finding) [facility] Start: 1980 Sex Assigned At Female F [facility] Start: 04-16-2024 Tobacco smoking stat [facility] Ex-smoker (finding) [facility] Start: 05-28-2024 Tobacco smoking stat [facility] Smoker (finding) [facility] Goals Date Patient Goal Desired Activity /State [...] Depo calendar given. documented in this encounter [facility] 11-15-2023 Miscellaneous Notes Patient called the office [...] understood. SAURABH Camacho [facility] encounter Note Patient called the [...] with recommendations for the patient. [facility] you. [facility] Telephone encounter Note If patient is [...] come in for an appt. Thank you. [facility] 11-15-2023 Telephone encounter Note LVM for patient to return our call [facility] 11-15-2023 Telephone encounter Note Pt called back and informed her of this information. Pt verbalized she understood. SAURABH Camacho [facility] 10-28-2023 Note XR CHEST 2 VWS Procedure: Chest x-ray performed Number of views:2 History:Syncope Comparison:10/03/2010 Findings: The heart and lungs show no acute findings, and the mediastinum and meliza are grossly negative . Impression: 1. No acute change. Finalized by Ronni Roblero MD on 10/28/2023 7:04 PM [facility] 12-24-2022 Evaluation note Encounter Date Diagnosis [...] as decrease in urine, dry mouth, etc [employer] Other 08-02-2022 Evaluation note* Encounter Date Diagnosis [...] action if you have chronic health conditions. [employer] Other Evaluation note* Diagnosis Encounter for surveillance of injectable contraceptive- Primary [facility] information available [facility] Work Phone: Evaluation note* Diagnosis Onset Date Resolution Status 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 acute [facility] Work Phone: Evaluation note* Diagnosis Onset Date Resolution Status 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 acute 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 acute [facility] Work Phone: His[facility] general Narrative - Reported* Type Description Date Medical History Anxiety Surgical History C section x 3 Surgical History rotator cuff Surgical History cholecystectomy Hospitalization History Child [employer] Other [facility] Narrative - Reported* Type Description Date Medical History Anxiety Medical History Neuropathy Surgical History C section x 3 Surgical History rotator cuff Surgical History cholecystectomy Surgical History hip decompression left Hospitalization History Child [employer] Other Hospital Discharge instructions Additional Instructions DISCHARGE [...] appointment to see your physician in two weeks.[facility] Work Phone: InstructionsNot on filedocumented in this encounter [employer] SystemInstructionsNot on filedocumented in this encounter [facility] [employer] Summary Purpose Family History No Family History Records Found Relationship Condition Age at Onset Recorded Date/T nusrat father Diabetes mellitus Unknown Heart disease Unknown Advance Directives No Advanced Directives Records Found Advance Directive Response Recorded Date/ Time Advance Directives No December 31 3:00pm Chief Complaint and Reason for Visit Chief Complaint Right leg pain w/o i njury Ref Sweta Briggs lumbar radiculopathy Chief Complaint Ref rachel Valdez [...] and content) DATE CREATED AUTHOR 02/18/2021 [facility] DATE CREATED AUTHOR AUTHOR'S ORGANIZ ATION 06/01/2022 [facility] DATE CREATED AUTHOR AUTHOR'S ORGANIZ ATION 10/30/2023 [facility] DATE CREATED AUTHOR AUTHOR'S ORGANIZ ATION 03/15/2024 [facility] Ambulatory [facility] DATE CREATED AUTHOR AUTHOR'S ORGANIZ ATION 06/28/[address] [facility] DATE CREATED AUTHOR AUTHOR'S ORGANIZ ATION 07/05/2024 [facility] REASON FOR VISIT (unrecogniz ed section and content) Reason Comments Contraception Pt is here for DEPO Care Teams (unrecognized sec tion and content) [employer] Relationship Specialty Start Date End Date GeorginaeddieAinsley wilder APRN-STORE COORDINATOR [address] [place] [address] PCP - General Nurse Practitioner 03/30/22 [employer] Relationship Specialty Start Date End Date GeorginaeddieAinsley wilder APRN-STORE COORDINATOR [address] [place] [phone] PCP - General Nurse Practitioner 03/30/22 Team Status: Active Member Role Status Dates Ainsley Sellers Primary Care Provider Active Team Status: Inactive Member Role Status Dates Salina Prather NP-C Attending Provider Active S tart: January 01, 2024 End: January 01, 2024 Ainsley Sellers Primary Care Provider Active Sta rt: January 01, 2024 End: January 01, 2024 Team Status: Inactive Member Role Status Dates Ainsley Sellers Primary Care Provider Active Sta rt: February 24, 2024 End: February 24, 2024 Marry Barfield NP-C Active Star t: February 24, 2024 End: February 24, 2024 Say Summers MD Attending Provider Active Star t: February 24, 2024 End: February 24, 2024 Team Status: Inactive Member Role Status Dates Ainsley Sellers Primary Care Provider Active Sta rt: April 05, 2024 End: April 05, 2024 Say Summers MD Attending Provider Active Star t: April 05, 2024 End: April 05, 2024 Team Status: Inactive Member Role Status Dates Ainsley Sellers Primary Care Provider Active Sta rt: April 16, 2024 End: April 16, 2024 Say Summers MD Attending Provider Active Star t: April 16, 2024 End: April 16, 2024 Team Status: Inactive Member Role Status Dates Ainsley Sellers Primary Care Provider Active Sta rt: May 28, 2024 End: May 28, 2024 Say Summers MD Attending Provider Active Jason t: May 28, 2024 End: May 28, [...] BE BASED ON THE PRIMARY CLINICAL RECORDS. [employer] provides no warranty or guarantee of the accuracy or completeness of information in this document.
[2024-07-25 18:45] VITALS: BP 154/98; PULSE 79; TEMP 36.5; O2SAT 98; BMI 35.4
--- NOTE | 2024-07-25 19:03 | CT_ITS ---
[address] [address] Patient Name: ROSELIA LO MRN: [id number] date: 1980 Sex: F Assigned Patient Location: ER Current Patient Location: ER Accession/Order Number: [id number] Exam Date: 07/25/2024 19:10 Report Date: 07/25/2024 20:19 At the request of: SYLVESTER BRIONES Procedure: CT abdomen pelvis wo con Indication: Flank/abdominal pain. Comparison: 03/24/2024 Procedure: Axial images were made from the diaphragms through the symphysis pubis. No oral contrast or intravenous contrast was given. Dose reduction techniques were achieved by using automated exposure control and/or adjustment of mA and/or kV according to patient size and/or use of iterative reconstruction technique. Findings: Liver/Biliary System: Stable 2.5 cm hypodensity in the liver, probably cyst. No intra or extrahepatic biliary dilatation. Status postcholecystectomy. Pancreas/Spleen: No evidence of acute pancreatitis. Pancreatic duct is not dilated. No splenomegaly. Kidneys/Adrenals: Small right kidney with compensatory hypertrophy of left kidney. Stable 6 mm exophytic hypodensity in right kidney, probably cyst. No renal or ureteral stones are seen. No hydronephrosis or hydroureter bilaterally. No adrenal nodules. Aorta/Vessels: No evidence of aortic aneurysm. Evaluation of vessels is limited due to lack of IV contrast. Bowel/Fluid/Nodes: No bowel dilatation or bowel wall thickening. No evidence of bowel obstruction. Colonic diverticulosis with no evidence of diverticulitis. Normal appendix. No ascites or fluid collections. No adenopathy. Lung bases: Clear. Other findings: No aggressive osseous lesions are seen. Pelvis: No pelvic masses or adenopathy. No free fluid seen in the pelvis. Bladder, uterus and adnexa are unremarkable. Other Findings: No aggressive osseous lesions are seen. CT/CT abdomen pelvis wo con Impression: 1. No evidence of acute abdominal or pelvic process. 2. Stable hepatic and right renal cysts. Colonic diverticulosis. Small right kidney with compensatory hypertrophy of left kidney. Electronically authenticated by: VASHTI RODRIGUEZ Date: 07/25/2024 20:19
--- NOTE | 2024-07-25 19:05 | ED.GENADUL1 ---
HPI HPI - General Adult General Chief complaint: Urogenital-Female Stated complaint: URINE RENTENTION Time Seen by Provider: 07/25/24 18:51 Source: patient Mode of arrival: walk-in Related Data Home Medications ?Medication ?Instructions ?Recorded ?Confirmed alprazolam 0.25 mg tablet 0.25 mg PO DAILY 01/31/24 03/24/24 baclofen 10 mg tablet 10 mg PO BID 01/31/24 03/24/24 fluoxetine 40 mg capsule 40 mg PO DAILY 01/31/24 03/24/24 gabapentin 300 mg capsule 300 mg PO TID 01/31/24 03/24/24 trazodone 50 mg tablet 50 mg PO DAILY 01/31/24 03/24/24 folic acid 1 mg tablet 1 mg PO DAILY 03/24/24 03/24/24 Previous Rx's ?Medication ?Instructions ?Recorded ciprofloxacin HCl 500 mg tablet 500 mg PO Q12H #20 tabs 03/24/24 (Cipro) hydrocodone 5 mg-acetaminophen 325 1 tab PO Q6H PRN pain 5 days #20 03/24/24 mg tablet tabs metronidazole 500 mg tablet 500 mg PO TID #30 tabs 03/24/24 ondansetron 4 mg disintegrating 4 mg PO Q6H PRN nausea and 03/24/24 tablet vomiting #20 tabs ciprofloxacin HCl 500 mg tablet 500 mg PO BID 7 days #14 tabs 07/25/24 (Cipro) hydrocodone 5 mg-acetaminophen 325 1 tab PO Q6H PRN pain 3 days #12 07/25/24 mg tablet tabs ketorolac 10 mg tablet 10 mg PO TID PRN pain #6 tabs 07/25/24 ondansetron 4 mg disintegrating 4 mg PO Q6H PRN nausea and 07/25/24 tablet vomiting #12 tabs Allergies Allergy/AdvReac Type Severity Reaction Status Date / Time diphenhydramine Allergy Mild Hives Verified 02/14/24 08:57 [From Benadryl] codeine Allergy Unknown Verified 02/14/24 08:57 Opioid HPI Opioid Management Most Recent Opioid Data: Last Pain Scale 7 03/24/24 20:45 Last MAR Pain Assessment 07/25/24 19:39 PFSH PFSH Medical History Anxiety ?F41.9 - Anxiety disorder, unspecified (ICD-10) H/O kidney disease ?Z87.448 - Personal history of other diseases of urinary system (ICD-10) Smoker ?F17.200 - Nicotine dependence, unspecified, uncomplicated (ICD-10) Surgical History Status post hip surgery ?Z98.890 - Other specified postprocedural states (ICD-10) H/O arthroscopy of shoulder ?Z98.890 - Other specified postprocedural states (ICD-10) H/O: ?Z98.891 - History of uterine scar from previous surgery (ICD-10) Social History Smoking status: Current every day smoker Exam Constitutional Vital Signs, click to edit/add: Last Vital Signs Temp 97.7 F 07/25/24 18:45 Pulse 79 07/25/24 18:45 Resp 18 07/25/24 18:45 BP 154/98 H 07/25/24 18:45 Pulse Ox 98 07/25/24 18:45 O2 Del Method Room Air 07/25/24 18:45 Course Vital Signs Vital signs: Vital Signs Temperature 97.7 F 07/25/24 18:45 Pulse Rate 79 07/25/24 18:45 Respiratory Rate 18 07/25/24 18:45 Blood Pressure 154/98 H 07/25/24 18:45 Pulse Oximetry 98 07/25/24 18:45 Oxygen Delivery Method Room Air 07/25/24 18:45 Temperature 97.7 F 07/25/24 18:45 Pulse Rate 79 07/25/24 18:45 Respiratory Rate 18 07/25/24 18:45 Blood Pressure 154/98 H 07/25/24 18:45 Pulse Oximetry 98 07/25/24 18:45 Oxygen Delivery Method Room Air 07/25/24 18:45 Medical Decision Making MDM Narrative Medical decision making narrative: On arrival to the ER, bladder scan shows 113 mL in the bladder, straight catheter was performed to drain the bladder and this is an accurate amount of urine that the patient was retaining, no indication for Martin catheter at this time. Patient was treated with pain medication, IV fluids, nausea medication with significant improvement. Laboratory studies reviewed and noted showing minimal leukocytosis and mild urinary tract infection with stable kidney function. No evidence of sepsis, CT scan with no acute process. Patient treated with oral Cipro, discharged home with a short course of analgesics, follow-up closely with PCP and return to the ER if symptoms change or worsen. SUPERVISED APC VISIT, PHYSICIAN ATTESTATION: Based on the medical record the care appears appropriate. ? Medical Records Medical records reviewed: Yes I reviewed the patient's medical records Lab Data Lab results reviewed: Yes I reviewed the patient's lab results Labs: Lab Results 07/25/24 07/25/24 Range/Units 19:17 19:35 WBC 11.4 H (4.0-11.0) 10^3/uL RBC 4.09 L (4.20-5.40) 10^6/uL Hgb 13.3 (12.0-16.0) g/dL Hct 40.7 (36.0-48.0) % MCV 99.5 H (81.0-99.0) fL MCH 32.5 (26.7-34.0) pg MCHC 32.7 (29.9-35.2) g/dL RDW 13.8 (11.0-15.0) % Plt Count 223 (150-450) 10^3/uL MPV 11.6 (9.5-13.5) fL Neut % (Auto) 71.4 (43.0-75.0) % Lymph % (Auto) 17.4 L (20.5-60.0) % [place] % (Auto) 6.4 (1.7-12.0) % Eos % (Auto) 3.7 (0.9-7.0) % Baso % (Auto) 0.4 (0.2-2.0) % Neut # (Auto) 8.1 H (1.4-6.5) 10^3/uL Lymph # (Auto) 2.0 (1.2-3.8) 10^3/uL [place] # (Auto) 0.7 (0.3-0.8) 10^3/uL Eos # (Auto) 0.4 (0.0-0.7) 10^3/uL Baso # (Auto) 0.0 (0.0-0.1) 10^3/uL Abs Immat Gran (auto) 0.08 H (0.00-0.03) 10^3/uL Imm/Tot Granulo (auto) 0.7 H (0.0-0.5) % Sodium 136 (136-145) mmol/L Potassium 4.3 (3.5-5.1) mmol/L Chloride 104 (98-107) mmol/L Carbon Dioxide 25.1 (21.0-32.0) mmol/L Anion Gap 11.2 BUN 8.0 (7.0-18.0) mg/dL Creatinine 1.14 H (0.55-1.02) mg/dL Est GFR ( Amer) >60 (>=60) Est GFR (Non-Af Amer) 52 L (>=60) BUN/Creatinine Ratio 7.0 Glucose 66 L (74-106) mg/dL Lactate 1.1 (0.4-2.0) mmol/L Calcium 9.4 (8.5-10.1) mg/dL Total Bilirubin 0.5 (0.2-1.0) mg/dL AST 27 (15-37) U/L ALT 21 (14-59) U/L Alkaline Phosphatase 82 (46-116) U/L Total Protein 6.7 (6.4-8.2) g/dL Albumin 3.5 (3.4-5.0) g/dL Globulin 3.2 g/dL Albumin/Globulin Ratio 1.1 Urine Color Lt. yellow (YELLOW) Urine Clarity Clear (CLEAR) Urine pH 6.0 (5.0-9.0) Ur Specific [place] 1.015 (1.005-1.025) Urine Protein Negative (NEG/TRACE) mg/dL Urine Glucose (UA) Negative (NEGATIVE) mg/dL Urine Ketones Negative (NEGATIVE) mg/dL Urine Occult Blood Large A (NEGATIVE) Urine Nitrite Negative (NEGATIVE) Urine Bilirubin Negative (NEGATIVE) Urine Urobilinogen 0.2 (0.2-1.0) EU/dL Ur Leukocyte Esterase Small A (NEGATIVE) Urine RBC None seen (0-2) #/HPF Urine WBC 5-10 A (NONE SEEN) #/HPF Ur Squamous Epith Cells Few A (NONE/RARE) #/LPF Urine Crystals None seen (None Seen) #/HPF Urine Bacteria Moderate A (NONE SEEN) #/HPF Urine Casts None seen (NONE SEEN) #/LPF Urine Mucus None seen (NONE SEEN) Ur Culture Indicated? Yes Imaging Data CT scan - abdomen: Attestation: I have reviewed the pertinent imaging results. Radiologist's impression: ITS Impressions Abdomen/Pelvis CT 07/25/24 19:03 Impression: 1. No evidence of acute abdominal or pelvic process. 2. Stable hepatic and right renal cysts. Colonic diverticulosis. Small right kidney with compensatory hypertrophy of left kidney. Electronically authenticated by: VASHTI RODRIGUEZ Date: 07/25/2024 20:19 Discharge Plan Discharge Chief Complaint: Urogenital-Female Clinical Impression: UTI (urinary tract infection), Abdominal pain Patient Disposition: Home, Self-Care Time of Disposition Decision: 21:01 Condition: Good Prescriptions / Home Meds: New ciprofloxacin HCl [Cipro] 500 mg tablet 500 mg PO BID 7 Days Qty: 14 0RF hydrocodone-acetaminophen 5-325 mg tablet 1 tab PO Q6H PRN (Reason: pain) 3 Days Qty: 12 0RF Rx Instructions: R10.9 ketorolac 10 mg tablet 10 mg PO TID PRN (Reason: pain) Qty: 6 0RF ondansetron 4 mg tablet,disintegrating 4 mg PO Q6H PRN (Reason: nausea and vomiting) Qty: 12 0RF No Action fluoxetine 40 mg capsule 40 mg PO DAILY trazodone 50 mg tablet 50 mg PO DAILY gabapentin 300 mg capsule 300 mg PO TID Rx Instructions: DISP# 120 1 TAB IN THE AM 1 TAB IN THE AFTERNOON 2 TABS AT BEDTIME alprazolam 0.25 mg tablet 0.25 mg PO DAILY baclofen 10 mg tablet 10 mg PO BID folic acid 1 mg tablet 1 mg PO DAILY ciprofloxacin HCl [Cipro] 500 mg tablet 500 mg PO Q12H Qty: 20 0RF metronidazole 500 mg tablet 500 mg PO TID Qty: 30 0RF hydrocodone-acetaminophen 5-325 mg tablet 1 tab PO Q6H PRN (Reason: pain) 5 Days Qty: 20 0RF ondansetron 4 mg tablet,disintegrating 4 mg PO Q6H PRN (Reason: nausea and vomiting) Qty: 20 0RF Print Language: Indian Instructions: Urinary Tract Infection in Women (ED), Acute Abdominal Pain (ED) Referrals: Ainsley Sellers NP [Primary Care Provider] - 1 week Discharge Date/Time: 07/25/24 21:19
--- NOTE | 2024-07-25 19:38 | PC.NURSE ---
straight cath done due to patient urinary retention. She tolerated the procedure well, bladder was drained of cloudy, pale yellow urine. Patient felt relief immediately, however still had abdominal pain after. She is informed that her urine will be sent to the lab for analysis, and that Geneva ELIAS ordered pain medications for her.
[2024-07-25] MEDS: ONDANSETRON PF 4 MG/2 ML VIAL IV (19:39)
[2024-07-25] MEDS: HYDROMORPHONE HCL 0.5 MG/0.5 ML SYRINGE IV (19:39)
[2024-07-25] MEDS: 0.9 % SODIUM CHLORIDE 1,000 ML 1000 ML IV (19:40)
[2024-07-25 20:19] LABS: Basophils Percent Auto 0.4 % (0.2-2.0); Eosinophils Absolute Auto 0.4 10^3/uL (0.0-0.7); Eosinophils Percent Auto 3.7 % (0.9-7.0); Hematocrit 40.7 % (36.0-48.0); Hemoglobin 13.3 g/dL (12.0-16.0); Immature Granulocytes Abs Auto 0.08 10^3/uL (0.00-0.03); Immature Granulocytes Pct Auto 0.7 % (0.0-0.5); Lymphocytes Percent Auto 17.4 % (20.5-60.0); Mean Corpuscular HGB Conc 32.7 g/dL (29.9-35.2); Mean Corpuscular Hemoglobin 32.5 pg (26.7-34.0); Mean Corpuscular Volume 99.5 fL (81.0-99.0); Mean Platelet Volume 11.6 fL (9.5-13.5); Monocytes Absolute Auto 0.7 10^3/uL (0.3-0.8); Monocytes Percent Auto 6.4 % (1.7-12.0); Neutrophils Absolute Auto 8.1 10^3/uL (1.4-6.5); Neutrophils Percent Auto 71.4 % (43.0-75.0); Platelet Count 223 10^3/uL (150-450); Red Blood Count 4.09 10^6/uL (4.20-5.40); Red Cell Distribution Width 13.8 % (11.0-15.0); White Blood Count 11.4 10^3/uL (4.0-11.0)
[2024-07-25 20:20] LABS: Bilirubin Urine NEGATIVE (NEGATIVE); Blood Urine LARGE (NEGATIVE); Clarity Urine CLEAR (CLEAR); Color Urine LT. YELLOW (YELLOW); Glucose Urine UA NEGATIVE (NEGATIVE); Ketones Urine NEGATIVE (NEGATIVE); Leukocyte Esterase Urine SMALL (NEGATIVE); Nitrite Urine NEGATIVE (NEGATIVE); Protein Urine NEGATIVE (NEG/TRACE); Specific Gravity Urine 1.015 (1.005-1.025); Urobilinogen Urine 0.2 EU/dL (0.2-1.0)
[2024-07-25 20:31] LABS: Urine Microscopic Indicated YES
[2024-07-25 20:36] LABS: Bacteria Urine MODERATE #/HPF (NONE SEEN); Mucus Urine NONE SEEN (NONE SEEN); RBC Urine NONE SEEN #/HPF (0-2)
[2024-07-25 20:37] LABS: Cast Seen? NONE SEEN #/LPF (NONE SEEN); Crystals Seen? None Seen #/HPF (None Seen); Squamous Epithelial Cell Urine FEW #/LPF (NONE/RARE); Urine Culture Indicated YES
[2024-07-25 20:41] LABS: Lactate/Lactic Acid 1.1 mmol/L (0.4-2.0)
[2024-07-25 20:47] LABS: Alanine Aminotransferase 21 U/L (14-59); Albumin Globulin Ratio 1.1; Albumin Level 3.5 g/dL (3.4-5.0); Alkaline Phosphatase 82 U/L (46-116); Anion Gap 11.2; Aspartate Amino Transferase 27 U/L (15-37); Bilirubin Total 0.5 mg/dL (0.2-1.0); Calcium 9.4 mg/dL (8.5-10.1); Carbon Dioxide 25.1 mmol/L (21.0-32.0); Chloride 104 mmol/L (98-107); Estimated GFR (African America >60 (>=60); Estimated GFR (Non-African Ame 52 (>=60); Globulin 3.2 g/dL; Glucose 66 mg/dL (74-106); Potassium 4.3 mmol/L (3.5-5.1); Sodium 136 mmol/L (136-145); Total Protein 6.7 g/dL (6.4-8.2)
[2024-07-25] MEDS: CIPROFLOXACIN HCL 500 MG TABLET PO (21:13)
[2024-07-25] MEDS: ONDANSETRON 4 MG RAPDIS TABLET SL (21:14)
[2024-07-25] MEDS: OXYCODONE HCL/ACETAMINOPHEN 5MG/325MG 2 TAB PO (21:14)
== END 2024-07-25 21:19 | disposition home or self-care (01) ==
PROVIDERS: Physician Assistant; Emergency Provider Internal Medicine; PCP Nurse Practitioner
DX: N39.0 Urinary tract infection, site not specified (principal); R10.9 Unspecified abdominal pain; F17.200 Nicotine dependence, unspecified, uncomplicated
CPT/HCPCS: 36415; 74176; 80053; 81001; 83605; 85025; 87086; 96374; 96375; 99285; J1170; J2405; Q0162

== ENCOUNTER 2024-10-20 20:01 | Emergency (ER) | payer OTHER, SELFPAY ==
[2024-10-20 20:06] VITALS: BP 139/104; PULSE 92; TEMP 36.7; O2SAT 99; BMI 31.9
--- OUTSIDE RECORDS SUMMARY | 2024-10-20 20:10 | XMS_ITS | CCD ---
Author Organization [facility] Care Team Providers Care Program Development Manager Name Role Phone UNKNOWN, PHYSICIAN Referring Unavailable UNKNOWN, PHYSICIAN Primary Care Unavailable EBRAHEIM, REZA Attending Unavailable EBRAHEIM, REZA Admitting Unavailable AICHHOLZ, ROUTE SERVICE MANAGER AINSLEY Admitting Unavailable SVETA, DR TESS Eaton Consulting Unavailable AICHHOLZ, ROUTE SERVICE MANAGER AINSLEY Attending Unavailable AICHHOLZ, ROUTE SERVICE MANAGER AINSLEY Primary Care Unavailable AICHHOLZ, ROUTE SERVICE MANAGER AINSLEY Consulting Unavailable AICHHOLZ, ROUTE SERVICE MANAGER AINSLEY Primary Care Unavailable AICHHOLZ, ROUTE SERVICE MANAGER AINSLEY Admitting Unavailable AICHHOLZ, ROUTE SERVICE MANAGER AINSLEY Attending Unavailable AICHHOLZ, ROUTE SERVICE MANAGER AINSLEY Primary Care Unavailable HELIO, DR RANDOLPH Mehta Admitting Unavailable HELIO, DR RANDOLPH Mehta Attending Unavailable HELIO, DR RANDOLPH Mehta Consulting Unavailable HELIO, DR RANDOLPH Mehta Admitting Unavailable YOLANDA, DR NEVAREZ Primary Care Unavailable HELIO, DR RANDOLPH Mehta Attending Unavailable HELIO, DR RANDOLPH Mehta Consulting Unavailable AICHHOLZ, ROUTE SERVICE MANAGER AINSLEY Primary Care Unavailable AICHHOLZ, ROUTE SERVICE MANAGER AINSLEY Admitting Unavailable AICHHOLZ, ROUTE SERVICE MANAGER AINSLEY Attending Unavailable AICHHOLZ, ROUTE SERVICE MANAGER AINSLEY Consulting Unavailable Aicha Shankar Unavailable VERITO, AINSLEY J Primary Care Unavailable BRANDON, DIDI Martinez. Attending Unavailable BRANDON, DIDI Juan. Attending Unavailable MARGARETHTO, DIDI E. Referring Unavailable AICHHOLZ, AINSLEY J Primary Care Unavailable MARGARETHTO, DIDI E. Attending Unavailable MARGARETHTO, DIDI E. Referring Unavailable AICHHOLZ, AINSLEY J Primary Care Unavailable Aichholz FUR REMODELER-FADI Ainsley J Primary Care Provider VERITO AINSLEY J Referring Unavailable AICHHOLZ, AINSLEY J Primary Care Unavailable AICHHOLLiu, AINSLEY J Referring Unavailable AICHHOLZ, AINSLEY J Primary Care Unavailable Aichholz, Ainsley J Primary Care Provider [phone] MD Reggie Summers Attending Provider AINSLEY SELLERS Attending Unavailable AINSLEY SELLERS Attending Unavailable SWETA BRIGGS Attending Unavailable SWETA BRIGGS Referring Unavailable AINSLEY SELLERS Attending Unavailable RENA SMITH Attending Unavailable KRISTOPHER, REGGIE Referring Unavailable AICFlorentinoHOLLiu, AINSLEY Attending Unavailable RENA SMITH Attending Unavailable SUMMERS, REGGIE Referring Unavailable KELBLEThea, ODALIS Attending Unavailable SUMMERS, REGGIE Referring Unavailable STEPAN NGO Attending Unavailable SUMMERS, REGGIE Referring Unavailable KELBLEY, ODALIS Attending Unavailable KRISTOPHER, REGGIE Referring Unavailable AICHHOLLiu, AINSLEY Attending Unavailable EDIHHOLLiu, AINSLEY Attending Unavailable SHAIKH PÉREZ Attending Unavailable AICHHOLLiu, AINSLEY Attending Unavailable SHERINHOLLiu, AINSLEY Attending Unavailable Reggie Summers Attending Unavailable Ainsley Sellers Primary Care Unavailable Jeremy Summerse E Admitting Unavailable Kristopher Reggie E Admitting Unavailable Reggie Summers E Attending Unavailable Ainsley Sellers Primary Care Unavailable Quentin Dawn MD Primary Care Provider [phone] Verito GOLF RANGE ATTENDANTAinsley Unavailable Allergies Allergy Classification Reported Allergen(s) Allergy Type Date of Onset Reaction(s) Facility diphenhydrAMINE (1 source) diphenhydrAMINE; Translations: [BENADRYL] Drug Allergy 08-19-20 10 [facility] (7 sources) Codeine; Translations: [CODEINE] Drug Allergy 05-30-20 13 Seizures [facility] Repository (1 source) diphenhydrAMINE Drug Allergy 05-30-20 13 [facility] Repository (13 sources) Codeine Drug Allergy 05-06-20 17 [facility] Other (6 sources) diphenhydrAMINE Drug Allergy 02-24-20 24 [facility] (4 sources) diphenhydrAMINE; Translations: [DIPHENHYDRAMINE HCL] Drug Allergy 05-06-20 17 [facility] Repository (1 source) Codeine Drug Allergy 06-28-20 24 [facility] Repository (1 source) diphenhydrAMINE Drug Allergy 06-28-20 [facility] Repository (9 sources) diphenhydrAMINE Drug Allergy 10-05-20 Rash, Hallucinations [facility] Medications Current Medications Medication Drug Class(es) Dates Sig (Normalized) Sig (Original) acetaminophen 500 mg oral tablet (2 sources) Start: 04-16-2024 take 1 tablet by mouth every six hours Acetaminophen (Tylenol Extra Strength) 500 mg tablet Active 500 MG PO Every 6 hours April 16, 2024 12:00am ALPRAZolam 0.25 mg oral tablet (17 sources) Benzodiazepine Start: 01-01-2024 End: 08-16-2024 take 1 tablet by mouth every twenty-four hours as needed for anxiety and anxiety and anxiety ALPRAZolam (Xanax) 0.25 MG tablet Indications: Anxiety Take 1 tablet (0.25 mg) by mouth Daily as needed for anxiety 30 tablet 07/17/2024 08/16/2024 Active Start: 01-01-2024 Alprazolam Act lali MG PO [...] Orally Once a day for 5 days 24 b, 2023 Active dextromethorphan hydrobromide 1.5 mg/ml / pyrilamine maleate 1.5 mg/ml oral solution (1 source) Uncompetitive C-uxwxns-Z-asparta te Receptor Antagonist, Sigma-1 Agonist Start: 12-24-2022 [place] DM 7.5-7.5 MG/5ML 10 ml Orally every 6-8 hours as needed for 8 days Dec, Active fluticasone propionate 0.05 mg/actuat metered dose nasal spray (1 source) Corticosteroid Start: 12-24-2022 take 1 spray(s) nasal route once daily Fluticasone Propionate 50 MCG/ACT 1 spray in each nostril Nasally Once a day for 21 days Dec, Active gabapentin 300 mg oral capsule (12 sources) Anti-epileptic Agent Start: 02-24-2024 take 300 mg by mouth three times daily Gabapentin Active 300 MG PO Three times daily February 24, 2024 9:28am Start: 01-01-2024 End: 02-24-2024 take 300 mg by mouth twice daily Gabapentin Discontinued 300 MG PO Twice daily January 01, 2024 1:00am February 24, 2024 9:28am take 1 capsule by [facility] in the morning, then take 1 capsule [...] MULTIVITAMIN ORAL) Take by mouth. 0 Active naproxen 500 mg oral tablet (8 sources) Nonsteroidal Anti-inflammatory Drug Start: End: take 1 tablet by mouth once naproxen (Naprosyn) 500 MG tablet Indications: Rib pain on right side Take 1 tablet (500 mg) by mouth every 12 (twelve) hours if needed for mild pain or moderate pain for up to 15 days 30 tablet 07/17/2024 08/01/2024 Active Start: 06-26-2024 End: 07-17-2024 take 1 tablet by mouth in the morning naproxen (Naprosyn) 500 MG tablet Indications: Rib pain on right side Take 1 tablet (500 mg) by mouth in the morning and 1 tablet (500 mg) in the evening. Take with meals. Do all this for 15 days. Take with food. 30 tablet 06/26/2024 07/17/2024 Discontinued ondansetron 4 mg oral tablet (3 sources) Serotonin-3 Receptor Antagonist Start: 06-01-2022 take 1 tablet by mouth every eight hours as needed Zofran ODT 4 MG 1 tablet on the tongue and allow to dissolve Orally every 8 hrs as needed for 4 days Dec, Active oxyCODONE hydrochloride 5 mg oral tablet (1 source) Opioid Agonist Start: 05-28-2024 take 5-10 mg by mouth every six hours Oxycodone Active 5 - 10 MG PO Q6H 40 8 May 28, 2024 Prednisone (5 sources) Start: 05-28-2024 Prednisone Act lali 1 dose pk PO per package directions [...] Active traZODone hydrochloride 50 mg oral tablet (14 sources) Serotonin Reuptake Inhibitor Start: take 1 tablet by mouth at bedtime traZODone (Desyrel) 50 MG tablet Indications: Primary insomnia Take 1 tablet (50 mg) by mouth at bedtime 30 tablet 2 04/26/2024 Active Start: 01-01-2024 Trazodone Acti ve MG PO January 01, 2024 1:00am Start: 10-19-2023 End: 11-18-2023 take 1 tablet by mouth once daily traZODone (DESYREL) 50 mg tablet Take 1 tablet (50 mg total) by mouth nightly. 0 10/19/2023 11/18/2023 Active Completed/Discontinued Medications Medication Drug Class(es) Dates Sig (Normalized) Sig (Original) baclofen 10 mg oral tablet (5 sources) gamma-Aminobutyri c Acid-ergic Agonist Start: 07-17-2024 End: 07-25-2024 take 0.5-1 tablets by mouth twice daily as needed baclofen (Lioresal) 10 MG tablet TAKE 1/2 TO 1 TABLET BY MOUTH TWICE DAILY NEEDED 07/17/2024 07/25/2024 Discontinued (Therapy completed) Start: 04-16-2024 End: 05-28-2024 take 10 mg by mouth twice daily Baclofen Discontinued 10 MG PO Twice daily April 16, 2024 12:00am May 28, 2024 11:39am FLUoxetine 40 mg oral capsule (14 sources) Serotonin Reuptake Inhibitor Start: 06-11-2024 End: 07-25-2024 take 1 capsule by mouth once daily FLUoxetine (PROzac) 40 MG capsule Indications: Anxiety Take 1 capsule (40 mg) by mouth Daily 30 capsule 2 06/11/2024 07/25/2024 Discontinued (Therapy completed) Start: 01-01-2024 take 40 mg by mouth once daily Fluoxetine Active 40 MG PO Daily January 01, 2024 1:00am FLUoxetine (PROz ac) 20 mg capsule Take 30 mg by mouth in the morning. 0 Active folic acid 1 mg oral tablet (10 sources) Start: 10-07-2023 End: 10-06-2024 take 1 tablet by mouth in the morning folic acid (Folvite) 1 MG tablet Indications: Folate deficiency Take 1 tablet (1 mg) by mouth in the morning. 90 tablet 3 10/07/2023 07/25/2024 Discontinued (Therapy completed) 1 ml medroxyPROGESTERone acetate 150 mg/ml injection (2 sources) Progestin Start: 12-22-2023 End: 12-22-2023 medroxyPROGESTERone (DEPO-PROVERA) injection 150 mg Start: 12-22-2023 End: 12-22-2023 medroxyPROGESTERone (DEPO-NE OVERA) injection 150 mg Problems Active Problems Problem Classification Problem Date Documented Date Episodic/Chronic Acute and chronic tonsillitis (4 sources) Hypertrophy of tonsils; Translations: [Hypertrophy of tonsils] Onset: 03-19-2021 03-19-2021 Chronic Anxiety disorders (13 sources) Anxiety; Translations: [Anxiety disorder, unspecified] Onset: 10-06-2023 07-17-2024 Chronic Chronic kidney disease (18 sources) Chronic kidney disease stage 3A ; Translations: [Stage 3a chronic kidney disease (CKD)] Onset: 10-06-2023 Resolved: 04-26-2024 10-06-2023 Chronic Contraceptive and procreative management (1 source) Contraception ; Translations: [Encounter for surveillance of injectable contraceptive] 12-22-2023 Episodic Diverticulosis and diverticulitis (9 sources) Diverticulitis; Translations: [Diverticulitis of intestine, part unspecified, without perforation or abscess without bleeding] Onset: 03-29-2024 04-26-2024 Chronic Genitourinary symptoms and ill-defined conditions (5 sources) Acute retention of urine ; Translations: [Other retention of urine] Onset: 07-25-2024 07-25-2024 Episodic Nausea and vomiting (1 source) Nausea Episodic Osteoarthritis (9 sources) Osteoarthritis of hip; Translations: [Osteoarthritis of hip, unspecified] Onset: 10-06-2023 10-06-2023 Chronic Other nervous system disorders (9 sources) Polyneuropathy; Translations: [Polyneuropathy, unspecified] Onset: 10-06-2023 10-06-2023 Chronic Other nutritional; endocrine; and metabolic disorders (13 sources) Body mass index 30+ - obesity; Translations: [Obesity, unspecified] Onset: 10-06-2023 10-06-2023 Chronic Other skin disorders (1 source) Rash and [...] Other Problems Problem Classification Problem Date Documented Date Episodic/Chronic Abdominal pain (3 sources) Unspecified abdominal pain; Translations: [UNSPECIFIED ABDOMINAL PAIN] Onset: 01-29-2022 Episodic Acquired foot deformities (9 sources) Bunion; Translations: [Bunion of left foot] Onset: 10-06-2023 10-06-2023 Episodic Allergic reactions (13 sources) Erythema ab igne [dermatitis ab igne]; Translations: [Erythema ab igne] Onset: 03-18-2022 Resolved: 04-26-2024 Episodic Chronic obstructive pulmonary disease and bronchiectasis (1 source) Bronchitis, not specified as acute or chronic; Translations: [BRONCHITIS NOT SPEC ACUTE/CHRON] Onset: 10-20-2021 Episodic Mood disorders (2 sources) Mood disorders Onset: 04-26-2023 04-26-2023 Other aftercare (1 source) Other snf (current) drug therapy; Translations: [OTH CIRCUIT TESTER CURRENT DRUG THERAPY] Onset: 02-01-2022 Episodic Other connective tissue disease (4 sources) Pain in right leg; Translations: [PAIN IN RIGHT LEG] Onset: 11-18-2021 Episodic Other connective tissue disease (1 source) Pain in left leg; Translations: [PAIN IN LEFT LEG] Onset: 11-20-2021 Episodic Other connective tissue disease (9 sources) Pain in bilateral legs; Translations: [Pain in right leg] Onset: 10-06-2023 10-06-2023 Episodic Other connective tissue disease (9 sources) Radial styloid tenosynovitis; Translations: [Radial styloid tenosynovitis [de Quervain]] Onset: 10-06-2023 10-06-2023 Episodic Other lower respiratory disease (13 sources) Rib pain; Translations: [Pleurodynia] Onset: 06-26-2024 06-26-2024 Episodic Other non-traumatic joint disorders (9 sources) Pain in elbow; Translations: [Pain in right elbow] Onset: 10-06-2023 Resolved: 04-26-2024 04-26-2024 Episodic Other non-traumatic joint disorders (9 sources) Hip pain; Translations: [Pain in right hip] Onset: 01-12-2024 Resolved: 03-08-2024 03-08-2024 Episodic Other nutritional; endocrine; and metabolic disorders (9 sources) Body mass index 25-29 - overweight; Translations: [Overweight] Onset: 10-06-2023 Resolved: 03-08-2024 03-08-2024 Episodic Other screening for suspected conditions (not mental disorders or infectious disease) (18 sources) Patient encounter status; Translations: [Encounter for screening mammogram for malignant neoplasm of breast] Onset: 10-06-2023 Resolved: 04-26-2024 03-29-2024 Episodic Other skin disorders (9 sources) Eruption; Translations: [Rash and other nonspecific skin eruption] Onset: 10-06-2023 Resolved: 04-26-2024 04-26-2024 Episodic Otitis media and related conditions (9 sources) Acute suppurative otitis media without spontaneous rupture of ear drum; Translations: [Acute suppurative otitis media without spontaneous rupture of ear drum, bilateral] Onset: 10-06-2023 Resolved: 03-08-2024 03-08-2024 Episodic Residual codes; unclassified (9 sources) Flushing; Translations: [Flushing] Onset: 10-06-2023 10-06-2023 Episodic Residual codes; unclassified (9 sources) Insomnia; Translations: [Insomnia, unspecified] Onset: 10-06-2023 10-06-2023 Episodic Residual codes; unclassified (9 sources) Tobacco user; Translations: [Tobacco use] Onset: 10-06-2023 10-06-2023 Episodic Spondylosis; intervertebral disc disorders; other back problems (20 sources) Lumbar disc prolapse with radiculopathy; Translations: [Intervertebral disc disorders with radiculopathy, lumbar region] Onset: 10-06-2023 02-24-2024 Episodic Unclassified (1 source) Contact with and (suspected) exposure to covid-19 Z20.822 Unclassified (2 sources) Onset: 04-26-2023 04-26-2023 Viral infection (1 source) COVID-19 Onset: 06-01-2022 Resolved: 06-01-2022 Results Test Name Value Interpretation Reference Range Facility HCG ( test) IAsierra d Ql (U)Ordered By: Christos Ellsworth on 05-28-2024 HCG ( test) Ql (U) Negative [facility] HCG,Urineon 05-28-2024 Beta HCG ( test) Ql (U) Negative Normal [facility] Comment on above: Result Comment: PERF ORMED BY: [place] [address] PATHOLOGIST SLIDE DEVELOPER ARACELI HOLLEY M.D. Performed By: #### U HCG #### [address] XR lumbar spine 1Von 024 XR lumbar spine 1V [facility] [place] [address] [place] [address] XRay Report Signed Patient: Roselia Lo MR#: [id number] : 1980 Acct:[id number] Age/Sex: 43 / F ADM Date: 05/28/24 Loc: [place] Room: Type: [facility] Attending Dr: Reggie Summers MD Copies to: Reggie Summers MD Ordering Provider: Reggie Summers MD Date of Service: 05/28/24 XR/XR [...] Randolph Hoffman M.D.05/28/2024 1:40 PM Dictation Location: [id number]-13 Transcribed By: THANG 05/28/24 1340 Dictated By: Randolph Hoffman II, MD 05/28/24 1339 Signed By: 05/28/24 1340 Normal [facility] Automated basophil %Ordered By: Reggie Summers on 04-16-2024 Basophils/100 WBC (Bld) 0.3 % Normal . [facility] Comment on above: Performed By: #### B MP, CBC #### [address] Automated basophil countOrde red By: Reggie Summers on 04-16-2024 Basophils (Bld) [#/Vol] 0.0 10*3/uL Normal 0.0-0.2 [facility] Comment on above: Result Comment: PERF ORMED BY: [place] [address] PATHOLOGIST SLIDE DEVELOPER ARACELI HOLLEY M.D. Performed By: #### B MP, CBC #### [address] Automated blood monocyte cou ntOrdered By: Reggie Summers on 04-16-2024 Monocytes (Bld) [#/Vol] 0.7 10*3/uL Normal 0.0-0.8 [facility] Comment on above: Performed By: #### B MP, CBC #### [address] Automated eosinophil %Ordere d By: Reggie Summers on 04-16-2024 Eosinophils/100 WBC (Bld) 6.3 % Normal . [facility] Comment on above: Performed By: #### B MP, CBC #### [address] Automated eosinophil countOr dered By: Reggie Summers on 04-16-2024 Eosinophils (Bld) [#/Vol] 0.5 10*3/uL High 0.0-0.45 [facility] Comment on above: Performed By: #### B MP, CBC #### [address] Automated monocyte %Ordered By: Reggie Summers on 04-16-2024 Monocytes/100 WBC (Bld) 8.7 % Normal . [facility] Comment on above: Performed By: #### B MP, CBC #### [address] Automated neutrophil %Ordere d By: Reggie Summers on 04-16-2024 Neutrophils/100 WBC (Bld) 62.7 % Normal . [facility] Comment on above: Performed By: #### B MP, CBC #### [address] Basic Metabolic Panelon 03-31 GFR/1.73 sq M.predicted MDRD (S/P/Bld) [Vol rate/Area] 52.325 mL/min/{1.73_m2} Normal [facility] Comment on above: Performed By: #### B MP, CBC #### [address] Calcium [Mass/volume] in Ser um or PlasmaOrdered By: Reggie Summers on 04-16-2024 Calcium [Mass/Vol] 8.8 mg/dL Normal 8.6-10.[address] [facility] Comment on above: Result Comment: PERF ORMED BY: [place] [address] PATHOLOGIST SLIDE DEVELOPER ARACELI HOLLEY M.D. Performed By: #### B MP, CBC #### [address] Carbon dioxide, total [Moles /volume] in Serum or PlasmaOrdered By: Reggie Summers on 04-16-2024 CO2 [Moles/Vol] 25.6 mmol/L Normal 21.0-31.0 [facility] Comment on above: Performed By: #### B MP, CBC #### [place] [address] [place] Chloride [Moles/volume] in S ramos or PlasmaOrdered By: Reggie Summers on 04-16-2024 Chloride [Moles/Vol] 106 mmol/L Normal 98-107 [facility] Comment on above: Performed By: #### B MP, CBC #### [address] Complete Blood Count Auto Di ffon 04-16-2024 Mean Corpuscular HGB Conc 33.9 g/dL Normal 32.0-35.0 [facility] Comment on above: Performed By: #### B MP, CBC #### [address] NRBC% 0.1 /100{WBC} Normal 0-0.5 [facility] Comment on above: Performed By: #### B MP, CBC #### [address] Creatinine [Mass/volume] in Serum or PlasmaOrdered By: Reggie Summers on 04-16-2024 Creatinine [Mass/Vol] 1.30 mg/dL High 0.60-1.20 [facility] Comment on above: Performed By: #### B MP, CBC #### [address] Erythrocyte distribution wid th [Ratio] by Automated countOrdered By: Reggie Summers on 04-16-2024 Erythrocyte distribution width (RBC) [Ratio] 13.6 % Normal 11.9-15.3 [facility] Comment on above: Performed By: #### B MP, CBC #### [address] Erythrocytes [#/volume] in B lood by Automated countOrdered By: Reggie Summers on 04-16-2024 RBC (Bld) [#/Vol] 4.10 10*6/uL Normal 3.60-5.00 [facility] Comment on above: Performed By: #### B MP, CBC #### [address] Glucose [Mass/volume] in Ser um or PlasmaOrdered By: Reggie Summers on 04-16-2024 Glucose [Mass/Vol] 63 mg/dL Low 70-[address] [facility] Comment on above: ADA recommended refe rence rangeRandom Glucose Reference Range is dependent on time and content of last meal. Glucose of more than 200 mg/dL in a nonstressed, ambulatory subject supports the diagnosis of Diabetes Mellitus. Result Comment: [facility] Glucose Reference Range is dependent on time and content of last meal. Glucose of more than 200 mg/dL in a nonstressed, ambulatory subject supports the diagnosis of Diabetes Mellitus. ADA recommended reference range Performed By: #### B MP, CBC #### [address] Hematocrit [Volume Fraction] of Blood by Automated countOrdered By: Reggie Summers on 04-16-2024 Hematocrit (Bld) [Volume fraction] 40.2 % Normal 34.0-46.4 [facility] Comment on above: Performed By: #### B MP, CBC #### [address] Hemoglobin [Mass/volume] in BloodOrdered By: Reggie Summers on 04-16-2024 Hemoglobin (Bld) [Mass/Vol] 13.6 g/dL Normal 11.8-15.4 [facility] Comment on above: Performed By: #### B MP, CBC #### [address] Leukocytes [#/volume] correc tabatha for nucleated erythrocytes in Blood by Automated counOrdered By: Reggie Summers on 04-16-2024 WBC corrected for nucl RBC Auto (Bld) [#/Vol] 8.3 10*3/uL 3.8-11.6 [facility] Leukocytes [#/volume] in Blo od by Automated countOrdered By: Reggie Summers on 04-16-2024 WBC (Bld) [#/Vol] 8.3 10*3/uL Normal 3.8-11.[address] [facility] Comment on above: Performed By: #### B MP, CBC #### [place] [address] [place] Lymphocytes [#/volume] in Bl ood by Automated countOrdered By: Reggie Summers on 04-16-2024 Lymphocytes (Bld) [#/Vol] 1.8 10*3/uL Normal 1.00-4.8 [facility] Comment on above: Performed By: #### B MP, CBC #### [address] Lymphocytes/100 leukocytes i n Blood by Automated countOrdered By: Reggie Summers on 04-16-2024 Lymphocytes/100 WBC (Bld) 22.0 % Normal . [facility] Comment on above: Performed By: #### B MP, CBC #### [facility] [address] [place] [address] MCH [Entitic mass] by Automa tabatha countOrdered By: Reggie Summers on 04-16-2024 MCH (RBC) [Entitic mass] 33.3 pg Normal 24.7-34.3 [facility] Comment on above: Performed By: #### B MP, CBC #### [address] MCHC Auto (RBC) [Mass/Vol]Or dered By: Reggie Summers on 04-16-2024 MCHC (RBC) [Mass/Vol] 33.9 g/dL 32.0-35.0 [facility] MCV [Entitic volume] by Auto mated countOrdered By: Reggie Summers on 04-16-2024 MCV (RBC) [Entitic vol] 98.2 fL Normal 80-100 [facility] Comment on above: Performed By: #### B MP, CBC #### [address] Neutrophils [#/volume] in Bl ood by Automated countOrdered By: Reggie Summers on 04-16-2024 Neutrophils (Bld) [#/Vol] 5.2 10*3/uL Normal 1.8-7.7 [facility] Comment on above: Performed By: #### B MP, CBC #### [address] No Panel InformationOrdered By: Reggie Summers on 04-16-2024 Estimated GFR (CKD-EPI) 52.325 mL/Min [facility] Creatinine Clearance (Chem N/A [facility] Nucleated erythrocytes [Pres ence] in Blood by Automated countOrdered By: Reggie Summers on 04-16-2024 Nucleated RBC Auto Ql (Bld) 0.1 /100{WBC} 0-0.5 [facility] Platelet mean volume [Entiti c volume] in Blood by Automated countOrdered By: Reggie Summers on 04-16-2024 Platelet mean volume (Bld) [Entitic vol] 9.3 fL Normal 6.3-10.7 [facility] Comment on above: Performed By: #### B MP, CBC #### [facility] [address] [place] [address] Platelets [#/volume] in Bloo d by Automated countOrdered By: Reggie Summers on 04-16-2024 Platelets (Bld) [#/Vol] 205 10*3/uL Normal 150-450 [facility] Comment on above: Performed By: #### B MP, CBC #### [address] Potassium [Moles/volume] in Serum or PlasmaOrdered By: Reggie Summers on 04-16-2024 Potassium [Moles/Vol] 4.3 mmol/L Normal 3.5-5.1 [facility] Comment on above: Performed By: #### B MP, CBC #### [facility] [address] [place] [address] Serum or plasma anion gap de terminationOrdered By: Reggie Summers on 04-16-2024 Anion gap [Moles/Vol] 11.7 mmol/L Normal 6.0-15.0 [facility] Comment on above: Performed By: #### B MP, CBC #### [place] [address] [place] Sodium [Moles/volume] in Ser um or PlasmaOrdered By: Reggie Summers on 04-16-2024 Sodium [Moles/Vol] 139 mmol/L Normal 136-[address] [facility] Comment on above: Performed By: #### B MP, CBC #### [facility] [address] [place] [address] Urea nitrogen [Mass/volume] in Serum or PlasmaOrdered By: Reggie Summers on 04-16-2024 Urea nitrogen [Mass/Vol] 12 mg/dL Normal 7-25 [facility] Comment on above: Performed By: #### B MP, CBC #### [facility] [address] CBC AND AUTO DIFFon 10-28-20 ABSOLUTE BASOPHIL 0.1 X10E9/L Normal 0.0-0.2 [facility] Comment on above: Performed By: #### 1 39-9, , CBCA, CMP, 16122-1 #### [facility] ([id number]) [address] [place] [address] 13709 ABSOLUTE NEUTROPHIL 10.5 X10E9/L High 1.5-6.6 [facility] Comment on above: Performed By: #### 1 39-9, , CBCA, CMP, 45153-7 #### [facility] ([id number]) [address] [place] [address] 72322 Basophils/100 WBC (Bld) 0.4 % Normal [facility] Comment on above: Performed By: #### 1 399, , CBCA, CMP, 06269-7 #### [facility] ([id number]) [address] [place] [address] 10758 Eosinophils (Bld) [#/Vol] 0.3 10*3/uL Normal 0.0-0.4 [facility] Comment on above: Performed By: #### 1 39-9, , CBCA, CMP, 91246-1 #### [facility] ([id number]) [address] [place] [address] 73623 Eosinophils/100 WBC (Bld) 2.2 % Normal [facility] Comment on above: Performed By: #### 1 39-9, , CBCA, CMP, 11245-3 #### [facility] ([id number]) [address] [place] [address] 65666 Erythrocyte distribution width (RBC) [Ratio] 15.2 % High 11.5-15.0 [facility] Comment on above: Performed By: #### 1 9, , CBCA, CMP, 56256-6 #### [facility] ([id number]) [address] [place] [address] 41390 Hematocrit (Bld) [Volume fraction] 42.7 % Normal 35-47 [facility] Comment on above: Performed By: #### 1 9, , CBCA, CMP, 52135-1 #### [facility] ([id number]) [address] [place] [address] 43500 Hemoglobin (Bld) [Mass/Vol] 14.6 g/dL Normal 11.7-15.5 [facility] Comment on above: Performed By: #### 1 9, , CBCA, CMP, 45844-8 #### [facility] ([id number]) [address] [place] [address] 08665 Lymphocytes (Bld) [#/Vol] 1.7 10*3/uL Normal 1.0-3.5 [facility] Comment on above: Performed By: #### 1 9, , CBCA, CMP, 36869-0 #### [facility] ([id number]) [address] [place] [address] 13571 Lymphocytes/100 WBC (Bld) 12.8 % Normal [facility] Comment on above: Performed By: #### 1 399, , CBCA, CMP, 17525-8 #### [facility] ([id number]) [address] [place] [address] 07760 MCH (RBC) [Entitic mass] 33.8 pg Normal 27-34 [facility] Comment on above: Performed By: #### 1 9, , CBCA, CMP, 49315-4 #### [facility] ([id number]) [address] [place] [address] 67185 MCHC (RBC) [Mass/Vol] 34.3 g/dL Normal 32-36 [facility] Comment on above: Performed By: #### 1 838-9, , CBCA, CMP, 26266-4 #### [facility] ([id number]) [address] [place] [address] 28484 MCV (RBC) [Entitic vol] 99 fL Normal 80-100 [facility] Comment on above: Performed By: #### 1 9, , CBCA, CMP, 49754-6 #### [facility] ([id number]) [address] [place] [address] 32283 Monocytes (Bld) [#/Vol] 0.8 10*3/uL Normal 0-0.9 [facility] Comment on above: Performed By: #### 1 9, , CBCA, CMP, 63127-4 #### [facility] ([id number]) [address] [place] [address] 83147 Monocytes/100 WBC (Bld) 5.7 % Normal [facility] Comment on above: Performed By: #### 1 9, , CBCA, CMP, 16719-9 #### [facility] ([id number]) [address] [place] [address] 30789 Neutrophils/100 WBC (Bld) 78.9 % Normal [facility] Comment on above: Performed By: #### 1 9, , CBCA, CMP, 31058-9 #### [facility] ([id number]) [address] [place] [address] 78393 Platelet mean volume (Bld) [Entitic vol] 8.6 fL Normal 7-12 [facility] Comment on above: Performed By: #### 1 0839-9, , CBCA, CMP, 30813-0 #### [facility] ([id number]) [address] [place] [address] 69028 Platelets (Bld) [#/Vol] 247 10*3/uL Normal 150-450 [facility] Comment on above: Result Comment: PLAT ELETS REVIEWED Performed By: #### 1 0839-9, , CBCA, CMP, 32406-0 #### [facility] ([id number]) [address] [place] [address] 66863 RBC COUNT 4.32 X10E12/L Normal 3.80-5.20 [facility] Comment on above: Performed By: #### 1 0839-9, , CBCA, CMP, 37170-0 #### [facility] ([id number]) [address] [place] [address] 40752 WBC (Bld) [#/Vol] 13.3 10*3/uL High 4.0-11.0 [facility] Comment on above: Performed By: #### 1 0839-9, , CBCA, CMP, 20445-7 #### [facility] ([id number]) [address] [place] [address] 10571 COMPREHENSIVE METABOLIC PANE Scott 10-28-2023 Albumin [Mass/Vol] 4.0 g/dL Normal 3.2-5.3 [facility] Comment on above: Performed By: #### 1 0839-9, , CBCA, CMP, 16599-9 #### [facility] ([id number]) [address] [place] [address] 92627 ALP [Catalytic activity/Vol] 76 U/L Normal 39-130 [facility] Comment on above: Performed By: #### 1 39-9, , CBCA, CMP, 65705-3 #### [facility] ([id number]) [address] [place] [address] 41200 ALT [Catalytic activity/Vol] 18 U/L Normal 0-31 [facility] Comment on above: Performed By: #### 1 39-9, , CBCA, CMP, 56099-4 #### [facility] ([id number]) [address] [place] [address] 23040 Anion gap [Moles/Vol] 3 mmol/L Low 5-15 [facility] Comment on above: Performed By: #### 1 39-9, , CBCA, CMP, 16240-1 #### [facility] ([id number]) [address] [place] [address] 90891 AST [Catalytic activity/Vol] 20 U/L Normal 0-41 [facility] Comment on above: Performed By: #### 1 39-9, , CBCA, CMP, 97807-1 #### [facility] ([id number]) [address] [place] [address] 61123 Bilirubin [Mass/Vol] 0.8 mg/dL Normal 0.3-1.2 [facility] Comment on above: Performed By: #### 1 39-9, , CBCA, CMP, 85930-7 #### [facility] ([id number]) [address] [place] [address] 33580 Calcium [Mass/Vol] 8.6 mg/dL Normal 8.5-10.5 [facility] Comment on above: Performed By: #### 1 0839-9, , CBCA, CMP, 19567-4 #### [facility] ([id number]) [address] [place] [address] 08780 Chloride [Moles/Vol] 113 mmol/L High 98-109 [facility] Comment on above: Performed By: #### 1 39-9, , CBCA, CMP, 63363-3 #### [facility] ([id number]) [address] [place] [address] 06789 CO2 [Moles/Vol] 22 mmol/L Normal 22-32 [facility] Comment on above: Performed By: #### 1 838-9, , CBCA, CMP, 89859-2 #### [facility] ([id number]) [address] [place] [address] 59960 Creatinine [Mass/Vol] 1.15 mg/dL High 0.40-1.00 [facility] Comment on above: Result Comment: METH OD TRACEABLE TO IDMS STANDARD Performed By: #### 1 9, , CBCA, CMP, 17292-6 #### [facility] ([id number]) [address] [place] [address] 95996 GFR/1.73 sq M.predicted among non-blacks MDRD (S/P/Bld) [Vol rate/Area] 61 mL/min/{1.73_m2} Normal >59 [facility] Comment on above: Result Comment: Reported eGFR is based on the CKD-EPI 2020 equation that does not use a race coefficient. Performed By: #### 1 399, , CBCA, CMP, 21222-9 #### [facility] ([id number]) [address] [place] [address] 90007 Glucose [Mass/Vol] 84 mg/dL Normal 65-99 [facility] Comment on above: Performed By: #### 1 08399, , CBCA, CMP, 99525-7 #### [facility] ([id number]) [address] [place] [address] 32336 Potassium [Moles/Vol] 4.7 mmol/L Normal 3.5-5.0 [facility] Comment on above: Performed By: #### 1 0839-9, , CBCA, CMP, 35794-5 #### [facility] ([id number]) [address] [place] [address] 97646 Protein [Mass/Vol] 6.9 g/dL Normal 6.0-8.0 [facility] Comment on above: Performed By: #### 1 08399, , CBCA, CMP, 90468-0 #### [facility] ([id number]) [address] [place] [address] 02429 Sodium [Moles/Vol] 138 mmol/L Normal 134-146 [facility] Comment on above: Performed By: #### 1 08399, , CBCA, CMP, 19976-1 #### [facility] ([id number]) [address] [place] [address] 45223 Urea nitrogen [Mass/Vol] 12 mg/dL Normal 5-23 [facility] Comment on above: Performed By: #### 1 08399, , CBCA, CMP, 05566-3 #### [facility] ([id number]) [address] [place] [address]RA[address] CONT[address] CT BRAIN WO [...] dose to as low as reasonably achievable. 3 Finalized by Ronni Roblero MD on 10/28/2023 5:13 PM Normal [facility] Fibrin D-dimer DDU (PPP) [Ma ss/Vol]on 10-28-2023 D DIMER <150 Normal <255 [facility] Comment on above: Result Comment: Results <255 ng/mL DDU: The presence of a VTE can safely be excluded with a negative D-Dimer result and Wells score. A negative result doesn't exclude the possibility of DIC. The test be repeated along with other diagnostic tests if the patient's symptoms persist or worsen. [email or web address] Performed By: #### 1 0839-9, 53823-4, CBCA, CMP, 09414-5 #### [facility] ([id number]) [address] [place] [address] 03938 MAGNESIUMon 10-28-2023 Magnesium [Mass/Vol] 2.0 mg/dL Normal 1.8-2.6 [facility] Comment on above: Performed By: #### 1 0839-9, 99452-7, CBCA, CMP, 88596-9 #### [facility] ([id number]) [address] [place] [address] 19352 SARS/FLU A+B/RSV by NAAT/Mol ecularon 10-28-2023 SARS/FLU [...] operators who are performing tests using either Embue or Inside Secure systems and is limited to laboratories that [...] repeat. Fact Sheet for Healthcare Providers: https://www.fda.gov /media/070175/downl oad Fact Sheet for Patients: https://www.fda.gov /media/528781/downl oad Normal [facility] Comment on above: Performed By: #### C OVFLR #### [facility] ([id number]) [address] [place] [address] 54941 TROPONIN Ion 10-28-2023 Troponin I.cardiac [Mass/Vol] ng/mL Normal 0.00-0.04 [facility] Comment on above: Performed By: #### 1 0839-9, 27466-8, CBCA, CMP, 62459-4 #### [facility] ([id number]) [address] [place] [address] 15467 URN MACROSCOPIC NURon 2022 BILIRUBIN OLIVIA Negative Normal NEG [facility] Comment on above: Performed By: #### N UM #### [facility] ([id number]) [address] [place] [address] 92233 BLOOD/HGB OLIVIA Trace Abnormal NEG [facility] Comment on above: Performed By: #### N UM #### [facility] ([id number]) [address] [place] [address] [place] [address] GLUCOSE OLIVIA Negative Normal NEG [facility] Comment on above: Performed By: #### N UM #### [facility] ([id number]) [address] [place] [address] 55340 KETONES OLIVIA Negative Normal NEG [facility] Comment on above: Performed By: #### N UM #### [facility] ([id number]) [address] [place] [address] [place] [address] LEUKOCYTE ESTERASE OLIVIA Negative Normal NEG [facility] Comment on above: Performed By: #### N UM #### [facility] ([id number]) [address] [place] [address] [place] [address] NITRITE OLIVIA Negative Normal NEG [facility] Comment on above: Performed By: #### N UM #### [facility] ([id number]) [address] [place] [address] 22203 PH OLIVIA 6.0 Normal 5.0-8.5 [facility] Comment on above: Performed By: #### N UM #### [facility] ([id number]) [address] [place] [address] 08804 PROTEIN OLIVIA Negative Normal NEG [facility] Comment on above: Performed By: #### N UM #### [facility] ([id number]) [address] [place] [address] [place] [address] SPECIFIC GRAVITY OLIVIA 1.010 Normal 1.003-1.035 [facility] Comment on above: Performed By: #### N UM #### [facility] ([id number]) [address] [facility] [place] [address] UROBILINOGEN OLIVIA 0.2 eu/dL Normal <1.1 [facility] Comment on above: Performed By: #### N UM #### [facility] ([id number]) [address] [facility] [place] [address] COVID/FLU/RSV RT-PCRon 12-24 SARS-CoV-2 (COVID-19) RNA KAREN+probe Ql (Unsp spec) Negative [facility] Other COVID/FLU/RSV RT-PCR Negative [facility] Other SARS-CoV-2 (COVID-19) RNA NA A+probe Ql (Resp)on 06-01-2022 SARS-CoV-2 (COVID-19) RNA KAREN+probe Ql (Unsp spec) Positive [employer] Other REJI by IFAon 03-22-2022 Antinuclear Antibodies, IFA Negative Normal [facility] Comment on above: Result Comment: Nega tive <1:80 Borderline 1:80 Positive >1:80 ICAP nomenclature: AC-0 For more information about Hep-2 cell patterns use ANApatterns.org, the official website for the International Consensus on Antinuclear Antibody (REJI) Patterns (ICAP). Performed By: #### A NAIFA #### [facility] [address] [place] [address] Dr. Andre Haynes THYROID ANTIBODIESon 022 Thyroglobulin Antibody <1.0 Normal 0.0-0.9 [facility] Comment on above: Result Comment: Thyr oglobulin Antibody measured by [employer] Methodology Performed By: #### T TIMOBS #### [facility] [address] [place] [address] Dr. Andre Haynes Thyroid Peroxidase (TPO) Ab 10 IU/mL Normal 0-34 [facility] Comment on above: Performed By: #### T TIMOBS #### [facility] [address] [place] [address] Dr. Andre Haynes ANTISTREPTOLYSIN O AB (ASO)o n 03-19-2022 Antistreptolysin O Ab <20.0 Normal 0.0-200.0 [facility] Comment on above: Performed By: #### A SOAB #### [facility] [address] [place] [address] Dr. Andre Haynes RHEUMATOID FACTORon 03-19-20 RA Latex Turbid. <10.0 Normal <14.0 [facility] Comment on above: Performed By: #### R F #### [facility] [address] [place] [address] Dr. Andre Haynes CBC AUTO DIFFon 03-18-2022 BASO # 0.0 103/ul Normal 0.0-0.1 [facility] Comment on above: Performed By: #### C BC #### [facility] [address] [place] [address] Dr. Andre Haynes Basophils/100 WBC (Bld) 0.3 % Normal 0.2-2.0 [facility] Comment on above: Performed By: #### C BC #### [facility] [address] [place] [address] Dr. Andre Haynes EO # 0.4 103/ul Normal 0.0-0.7 [facility] Comment on above: Performed By: #### C BC #### [facility] [address] [place] [address] Dr. Andre Haynes Eosinophils/100 WBC (Bld) 4.0 % Normal 0.9-7.0 [facility] Comment on above: Performed By: #### C BC #### [facility] [address] [place] [address] Dr. Andre Haynes Erythrocyte distribution width (RBC) [Ratio] 12.5 % Normal 11.0-15.0 [facility] Comment on above: Performed By: #### C BC #### [facility] [address] [place] [address] Dr. Andre Haynes Hematocrit (Bld) [Volume fraction] 41.9 % Normal 36.0-48.0 [facility] Comment on above: Performed By: #### C BC #### [facility] [address] [place] [address] Dr. Andre Haynes Hemoglobin (Bld) [Mass/Vol] 14.4 g/dL Normal 12.0-16.0 [facility] Comment on above: Performed By: #### C BC #### [facility] [address] [place] [address] Dr. Andre Haynes IG # 0.04 10e3/ul Critically high 0.00-0.03 [facility] Comment on above: Performed By: #### C BC #### [facility] [address] [place] [address] Dr. Andre Haynes IG % 0.4 % Normal 0.0-0.5 [facility] Comment on above: Performed By: #### C BC #### [facility] [address] [place] [address] Dr. Andre Haynes LYMPH # 2.6 103/ul Normal 1.2-3.8 [facility] Comment on above: Performed By: #### C BC #### [facility] [address] [place] [address] Dr. Andre Haynes Lymphocytes/100 WBC (Bld) 29.2 % Normal 20.5-60.0 [facility] Comment on above: Performed By: #### C BC #### [facility] [address] [place] [address] Dr. Andre Haynes MANUAL DIFF REQ NO Normal [facility] Comment on above: Performed By: #### C BC #### [facility] [address] [place] [address] Dr. Andre Haynes MCH (RBC) [Entitic mass] 33.3 pg Normal 26.7-34.0 [facility] Comment on above: Performed By: #### C BC #### [facility] [address] [place] [address] Dr. Andre Haynes MCHC (RBC) [Mass/Vol] 34.4 g/dL Normal 29.9-35.2 [facility] Comment on above: Performed By: #### C BC #### [facility] [address] [address] [address] Andre Haynes MCV (RBC) [Entitic vol] 97.0 fL Normal 81.0-99.0 [facility] Comment on above: Performed By: #### C BC #### [facility] [address] [address] [address] Andre Haynes MONO # 0.6 103/ul Normal 0.3-0.8 [facility] Comment on above: Performed By: #### C BC #### [facility] [address] [place] [address] Dr. Andre Haynes Monocytes/100 WBC (Bld) 6.4 % Normal 1.7-12.0 [facility] Comment on above: Performed By: #### C BC #### [facility] [address] [place] [address] Dr. Andre Haynes NEUT # 5.4 103/ul Normal 1.4-6.5 [facility] Comment on above: Performed By: #### C BC #### [facility] [address] [place] [address] Dr. Andre Haynes Neutrophils/100 WBC (Bld) 59.7 % Normal 43.0-75.0 [facility] Comment on above: Performed By: #### C BC #### [facility] [address] [place] [address] Dr. Andre Haynes Platelet mean volume (Bld) [Entitic vol] 9.9 fL Normal 9.5-13.5 [facility] Comment on above: Performed By: #### C BC #### [facility] [address] [place] [address] Dr. Andre Haynes PLT 217 103/ul Normal 150-450 [facility] Comment on above: Performed By: #### C BC #### [facility] [address] [place] [address] Dr. Andre Haynes RBC 4.32 106/ul Normal 4.20-5.40 [facility] Comment on above: Performed By: #### C BC #### [facility] [address] [place] [address] Dr. Andre Haynes WBC 9.0 103/ul Normal 4.0-11.0 [facility] Comment on above: Performed By: #### C BC #### [facility] [address] [place] [address] Dr. Andre Haynes CRPon 03-18-2022 CRP [Mass/Vol] mg/L Normal <=1.0 [facility] Comment on above: Performed By: #### R F #### [facility] [address] [place] [address] Dr. Andre Haynes FERRITINon 03-18-2022 Ferritin [Mass/Vol] 35.0 ng/mL Normal 6.2-137.0 [facility] Comment on above: Performed By: #### R F #### [facility] [address] [place] [address] Dr. Andre Haynes FREE T3on 03-18-2022 FREE T3 3.61 pg/mlL Normal 2.18-3.98 [facility] Comment on above: Performed By: #### R F #### [facility] [address] [place] [address] Dr. Andre Haynes FREE T4on 03-18-2022 Free T4 [Mass/Vol] 1.00 ng/dL Normal 0.76-1.46 [facility] Comment on above: Performed By: #### R F #### [facility] [address] [place] [address] Dr. Andre Haynes IRONon 03-18-2022 Iron [Mass/Vol] 87.0 ug/dL Normal 50.0-170.0 [facility] Comment on above: Performed By: #### R F #### [facility] [address] [place] [address] Dr. Andre Haynes LIVER PROFILEon 03-18-2022 Albumin [Mass/Vol] 3.7 g/dL Normal 3.4-5.0 [facility] Comment on above: Performed By: #### R F #### [facility] [address] [place] [address] Dr. Andre Haynes Albumin/Globulin [Mass ratio] 1.3 {ratio} Normal [facility] Comment on above: Performed By: #### R F #### [facility] [address] [place] [address] Dr. Andre Haynes ALP [Catalytic activity/Vol] 74 U/L Normal 46-116 [facility] Comment on above: Performed By: #### R F #### [facility] [address] [place] [address] Dr. Andre Haynes ALT [Catalytic activity/Vol] 24 U/L Normal 14-59 [facility] Comment on above: Performed By: #### R F #### [facility] [address] [place] [address] Dr. Andre Haynes AST [Catalytic activity/Vol] 13 U/L Critically low 15-37 [facility] Comment on above: Performed By: #### R F #### [facility] [address] [place] [address] Dr. Andre Haynes BILI, CONJUGATED 0.1 mg/dL Normal 0.0-0.2 [facility] Comment on above: Performed By: #### R F #### [facility] [address] [place] [address] Dr. Andre Haynes Bilirubin [Mass/Vol] 0.3 mg/dL Normal 0.2-1.0 [facility] Comment on above: Performed By: #### R F #### [facility] [address] [place] [address] Dr. Andre Haynes Globulin (S) [Mass/Vol] 2.8 g/dL Normal T [facility] Comment on above: Performed By: #### R F #### [facility] [address] [place] [address] Dr. Andre Haynse Protein [Mass/Vol] 6.5 g/dL Normal 6.4-8.2 [facility] Comment on above: Performed By: #### R F #### [facility] [address] [place] [address] Dr. Andre Haynes PROF CHEM 8 (BAS METB)on Anion gap [Moles/Vol] 12.0 mmol/L Normal Th e [facility] Comment on above: Performed By: #### F T3, LIVER, BMP, TSH, URIC, CRP #### [facility] [address] [place] [address] Dr. Andre Haynes Calcium [Mass/Vol] 8.8 mg/dL Normal 8.5-10.1 [facility] Comment on above: Performed By: #### F T3, LIVER, BMP, TSH, URIC, CRP #### [facility] [address] [address] [address] Andre Haynes Chloride [Moles/Vol] 104 mmol/L Normal 98-107 [facility] Comment on above: Performed By: #### F T3, LIVER, BMP, TSH, URIC, CRP #### [facility] [address] [place] [address] Dr. Andre Haynes CO2 [Moles/Vol] 25.8 mmol/L Normal 21.0-32.0 [facility] Comment on above: Performed By: #### F T3, LIVER, BMP, TSH, URIC, CRP #### [facility] [address] [address] [address] Andre Haynes Creatinine [Mass/Vol] 1.05 mg/dL Critically high 0.55-1.02 [facility] Comment on above: Performed By: #### F T3, LIVER, BMP, TSH, URIC, CRP #### [facility] [address] [address] [address] Andre Haynes EGFR-AF CANADIAN >60 Normal >=60 [facility] Comment on above: Performed By: #### F T3, LIVER, BMP, TSH, URIC, CRP #### [facility] [address] [place] [address] Dr. Andre Haynes EGFR-NON AF CANADIAN 58 mL/min/1.73m2 Critically low >=60 [facility] Comment on above: Performed By: #### F T3, LIVER, BMP, TSH, URIC, CRP #### [facility] [address] [place] [address] Dr. Andre Haynes Glucose [Mass/Vol] 85 mg/dL Normal 74-106 [facility] Comment on above: Performed By: #### F T3, LIVER, BMP, TSH, URIC, CRP #### [facility] [address] [address] [address] Andre Haynes Potassium [Moles/Vol] 3.8 mmol/L Normal 3.5-5.1 [facility] Comment on above: Performed By: #### F T3, LIVER, BMP, TSH, URIC, CRP #### [facility] [address] [address] [address] Andre Haynes Sodium [Moles/Vol] 138 mmol/L Normal 136-145 [facility] Comment on above: Performed By: #### F T3, LIVER, BMP, TSH, URIC, CRP #### [facility] [address] [address] [address] Andre Haynes Urea nitrogen [Mass/Vol] 11.0 mg/dL Normal 7.0-18.0 [facility] Comment on above: Performed By: #### F T3, LIVER, BMP, TSH, URIC, CRP #### [facility] [address] [address] [address] Andre Haynes Urea nitrogen/Creatinine [Mass ratio] 10.5 mg/mg Normal [facility] Comment on above: Performed By: #### F T3, LIVER, BMP, TSH, URIC, CRP #### [facility] [address] [address] [address] Andre Haynes PROTIMEon 03-18-2022 INR Coag (PPP) [Relative time] 1.01 {INR} Normal [facility] Comment on above: Performed By: #### P TT, PT #### [facility] [address] [address] [address] Andre Haynes INR GUIDELINES SEE BELOW Normal [facility] Comment on above: Result Comment: BRICE RED INR: 2.0 - 3.0 CONDITIONS NOT LISTED BELOW 2.5 - 3.5 FOR PROSTHETIC HEART VALVE REPLACEMENT 2.5 - 3.5 RECURRENT THROMBOSIS Performed By: #### P TT, PT #### [facility] [address] [place] [address] Dr. Andre Haynes PT Coag (PPP) [Time] 10.9 s Normal 9.0-11.6 [facility] Comment on above: Performed By: #### P TT, PT #### [facility] [address] [place] [address] Dr. Andre Haynes PTTon 03-18-2022 aPTT Coag (Bld) [Time] 27.2 s Normal 22.3-36.2 [facility] Comment on above: Performed By: #### P TT, PT #### [facility] [address] [place] [address] Dr. Andre Hay[address] SED RATE [facility] 2021 SED RATE 1 mm/hr Normal <=20 [facility] Comment on above: Performed By: #### A SOAB #### [facility] [address] [place] [address] Dr. Andre Haynes TSHon 03-18-2022 TSH 2.218 uIU/mL Normal 0.358-3.740 [facility] Comment on above: Performed By: #### R F #### [facility] [address] [place] [address] Dr. Andre Haynes TSH RANGE SEE BELOW Normal [facility] Comment on above: Result Comment: <0.3 4 UIU/ml HYPERTHYROID 0.34-5.60 UIU/ml EUTHYROID >5.60 UIU/ml HYPOTHYROID Performed By: #### R F #### [facility] [address] [place] [address] Dr. Andre Haynes UA (CLEAN/CATCH) BELT CLEANER/MICRO I F IND.on 03-18-2022 Bilirubin Ql (U) Negative Normal NEGATIVE [facility] Comment on above: Performed By: #### R F #### [facility] [address] [place] [address] Dr. Andre Haynes Clarity (U) CLEAR Normal CLEAR [facility] Comment on above: Performed By: #### R F #### [facility] [address] [place] [address] Dr. Andre Haynes Color (U) YELLOW Normal YELLOW [facility] Comment on above: Performed By: #### R F #### [facility] [address] [place] [address] Dr. Andre Haynes Glucose Ql (U) Negative Normal NEGATIVE [facility] Comment on above: Performed By: #### R F #### [facility] [address] [place] [address] Dr. Andre Haynes Hemoglobin Ql (U) Negative Normal NEGATIVE [facility] Comment on above: Performed By: #### R F #### [facility] [address] [place] [address] Dr. Andre Haynes Ketones Ql (U) Negative Normal NEGATIVE [facility] Comment on above: Performed By: #### R F #### [facility] [address] [place] [address] Dr. Andre Haynes LEUKOCYTES Negative Normal NEGATIVE [facility] Comment on above: Performed By: #### R F #### [facility] [address] [place] [address] Dr. Andre Haynes Nitrite Ql (U) Negative Normal NEGATIVE [facility] Comment on above: Performed By: #### R F #### [facility] [address] [place] [address] Dr. Andre Haynes pH (U) 6.0 [pH] Normal 5-9 [facility] Comment on above: Performed By: #### R F #### [facility] [address] [place] [address] Dr. Andre Haynes SPEC GRAVITY 1.020 Normal 1.005-<=1.02 5 [facility] Comment on above: Performed By: #### R F #### [facility] [address] [place] [address] Dr. Andre Haynes UA PROTEIN Negative Normal NEGATIVE/ TRACE [facility] Comment on above: Performed By: #### R F #### [facility] [address] [place] [address] Dr. Andre Haynes UR MICRO IND MICROSCOPIC ALREADY ORDERED Normal [facility] Comment on above: Performed By: #### R F #### [facility] [address] [place] [address] Dr. Andre Haynes Urobilinogen Qn (U) 0.2 {Rafal'U}/dL Normal 0.2 - 1. 0 [facility] Comment on above: Performed By: #### R F #### [facility] [address] [place] [address] Dr. Andre Haynes URIC ACID SERUMon 03-18-2022 Urate [Mass/Vol] 3.9 mg/dL Normal 2.6-6.0 [facility] Comment on above: Performed By: #### R F #### [facility] [address] [place] [address] Dr. Andre Haynes URINE MICROSCOPIC ONLYon BACTERIA NONE SEEN Normal NONE SEEN [facility] Comment on above: Performed By: #### R F #### [facility] [address] [place] [address] Dr. Andre Haynes Bacteria identified Cx Nom (U) NOT INDICATED Normal [facility] Comment on above: Performed By: #### R F #### [facility] [address] [place] [address] Dr. Andre Haynes CAST NONE SEEN Normal NONE SEEN [facility] Comment on above: Performed By: #### R F #### [facility] [address] [place] [address] Dr. Andre Haynes Crystals LM Nom (Urine sed) NONE SEEN Normal NONE SEEN [facility] Comment on above: Performed By: #### R F #### [facility] [address] [place] [address] Dr. Andre Haynes Epithelial cells LM Ql (Urine sed) FEW Abnormal NONE SEEN /RARE [facility] Comment on above: Performed By: #### R F #### [facility] [address] [place] [address] Dr. Andre Haynes MUCOUS NONE SEEN Normal NONE SEEN [facility] Comment on above: Performed By: #### R F #### [facility] [address] [place] [address] Dr. Andre Haynes RBC 0-2 Normal 0-2 [facility] Comment on above: Performed By: #### R F #### [facility] [address] [place] [address] Dr. Andre Haynes WBC NONE SEEN Normal NONE SEEN [facility] Comment on above: Performed By: #### R F #### [facility] [address] [place] [address] Dr. Andre Haynes ER URINE PROFILEon 2 Bilirubin Ql (U) Negative Normal NEGATIVE [facility] Comment on above: Performed By: #### E RUR #### [facility] [address] [place] [address] Dr. Andre Haynes Clarity (U) CLEAR Normal CLEAR [facility] Comment on above: Performed By: #### E RUR #### [facility] [address] [place] [address] Dr. Andre Haynes Color (U) LT. YELLOW Normal YELLOW [facility] Comment on above: Performed By: #### E RUR #### [facility] [address] [place] [address] Dr. Andre SHAFER A micrscopic examination will be performed if indicated. Normal [facility] Comment on above: Performed By: #### E RUR #### [facility] [address] [place] [address] Dr. Andre Haynes Glucose Ql (U) Negative Normal NEGATIVE [facility] Comment on above: Performed By: #### E RUR #### [facility] [address] [place] [address] Dr. Andre aHynes Hemoglobin Ql (U) Negative Normal NEGATIVE [facility] Comment on above: Performed By: #### E RUR #### [facility] [address] [place] [address] Dr. Andre Haynes Ketones Ql (U) Negative Normal NEGATIVE [facility] Comment on above: Performed By: #### E RUR #### [facility] [address] [place] [address] Dr. Andre Haynes LEUKOCYTES Negative Normal NEGATIVE [facility] Comment on above: Performed By: #### E RUR #### [facility] [address] [place] [address] Dr. Andre Haynes Nitrite Ql (U) Negative Normal NEGATIVE [facility] Comment on above: Performed By: #### E RUR #### [facility] [address] [place] [address] Dr. Andre Haynes pH (U) 6.0 [pH] Normal 5-9 [facility] Comment on above: Performed By: #### E RUR #### [facility] [address] [place] [address] Dr. Andre Haynes SPEC GRAVITY <=1.005 Abnormal 1.005-<=1.02 5 [facility] Comment on above: Performed By: #### E RUR #### [facility] [address] [place] [address] Dr. Andre Haynes UA PROTEIN Negative Normal NEGATIVE/ TRACE [facility] Comment on above: Performed By: #### E RUR #### [facility] [address] [place] [address] Dr. Andre Haynes UR MICRO IND NOT INDICATED Normal [facility] Comment on above: Performed By: #### E RUR #### [facility] [address] [place] [address] Dr. Andre Haynes Urobilinogen Qn (U) 0.2 {Rafal'U}/dL Normal 0.2 - 1. 0 [facility] Comment on above: Performed By: #### E RUR #### [facility] [address] [place] [address] Dr. Andre Haynes XR LSPINE MIN 4 [...] TESS BANGURA Date: 2021-11-19 07:38 Normal [facility] OUTSIDE CONSULT MSKon 2020 OUTSIDE CONSULT MSK [facility] Department of Radiology [address] [place] [id number] Patient Name: ROSELIA LO : 1980 Sex: F Age: Race: White Pt. Location: [facility]OP Patient Status: Ordered Date: 02/05/2021 3:35:00 PM Completed Date: 02/05/2021 03:51 PM Requesting Provider: REZA TUCKER Attending Provider: Report Copy To: Signs & Symptoms: pt has persistent rt sided pectoralis pain and weakness. Assess pectoralis tendon for injury and/or tear History: Mri of rt shoulder from [facility] dated 11/05/20. Over read requested by Dr Tucker Comments: Exam: OUTSIDE CONSULT MSK OUTSIDE CONSULT MSK 02/05/2021 3:51 PM OUTSIDE STUDY: TECHNIQUE: Outside images of the right shoulder obtained from [facility] dated November 05, 2020. Image review with formal consultation was requested by Dr. Reza Monsalve. FINDINGS : Axial images show no [...] interpretation. Electronically signed: Jonathan Huerta. Transcribed by: [email or web address], User Resident: JONATHAN HUERTA Electronically Signed by: JONATHAN HUERTA @ 02/13/2021 12:32 PM I personally read this/these film(s) with this resident Normal [facility] Vital Signs Date Time Vital Sign Value Performing Clinician Facility 07-25-2024 17:53-0400 Body height 160 cm Ainsley Verito [employer] ATTEND[employer] Work Phone: [facility] 07-25-2024 17:53-0400 Body mass index (BMI) [Ratio] 36.07 kg/m2 Ainsley Verito [employer] ATTEND[employer] Work Phone: [facility] 07-25-2024 17:53-0400 Body temperature 98.71 [degF] Ainsley Verito [employer] ATT[employer] Work Phone: [facility] 07-25-2024 17:53-0400 Body weight 92.35 kg Ainsley Verito [employer] ATTEND[employer] Work Phone: [facility] 07-25-2024 17:53-0400 Heart rate 89 /min Ainsley Verito [employer] Work Phone: [facility] 07-25-2024 17:53-0400 Respiratory rate 19 /min Ainsley Verito [employer] ATTEND[employer] Work Phone: [facility] 07-25-2024 17:53-0400 SaO2% (BldA) [Mass fraction] 97 % Ainsley Aichholz [employer] Work Phone: [facility] 06-26-2024 15:58-0400 Body height 160 cm Ainsley Aichholz [employer] ATTEND[employer] Work Phone: [facility] 06-26-2024 15:58-0400 Body mass index (BMI) [Ratio] 36.07 kg/m2 Ainsley Aichholz [employer] Work Phone: [facility] 06-26-2024 15:58-0400 Body temperature 98.1 [degF] Ainsley Aichholz [employer] ATTEND[employer] Work Phone: [facility] 06-26-2024 15:58-0400 Body weight 92.35 kg Ainsley Aichholz [employer] ATTEND[employer] Work Phone: [facility] 06-26-2024 15:58-0400 Diastolic blood pressure 70 mm[Hg] Ainsley Aichholz [employer] ATTEND[employer] Work Phone: [facility] 06-26-2024 15:58-0400 Heart rate 107 /min Ainsley Aichholz [employer] Work Phone: [facility] 06-26-2024 15:58-0400 Respiratory rate 18 /min Ainsley Aichholz [employer] ATTEND[employer] Work Phone: [facility] 06-26-2024 15:58-0400 SaO2% (BldA) [Mass fraction] 98 % Ainsley Aichholz [employer]END[employer] Work Phone: [facility] 06-26-2024 15:58-0400 Systolic blood pressure 110 mm[Hg] Ainsley Aichholz [employer] ATTENDANT Work Phone: [facility] 05-28-2024 14:00-0400 Diastolic blood pressure 92 mm[Hg] Ainsley Aichholz Work Phone: [facility] 05-28-2024 14:00-0400 Heart rate 89 /min Ainsley Aichholz Work Phone: [facility] 05-28-2024 14:00-0400 Respiratory rate 16 /min Ainsleyjoaquina Maoholz Work Phone: [facility] 05-28-2024 14:00-0400 SaO2% (BldA) [Mass fraction] 95 % Ainsleyjoaquina Maoholz Work Phone: [facility] 05-28-2024 14:00-0400 Systolic blood pressure 125 mm[Hg] Ainsley Maoholz Work Phone: [facility] 05-28-2024 12:23-0400 Body temperature 97.9 [degF] Ainsley Maoholz Work Phone: [facility] 05-28-2024 11:38-0400 Inhaled oxygen flow rate 8 L/min Ainsley Maoholz Work Phone: [facility] 05-28-2024 09:07-0400 Body height 160.02 cm Ainsley Maoholz Work Phone: [facility] 05-28-2024 09:07-0400 Body mass index (BMI) [Ratio] 34.7 kg/m2 Ainsley Maoholz Work Phone: [facility] 05-28-2024 09:07-0400 Body weight 88.9 kg Ainsley Maoholz Work Phone: [facility] 04-05-2024 11:08-0400 Body height 160.02 cm [facility] 04-05-2024 11:08-0400 Body mass index (BMI) [Ratio] 34 kg/m2 [facility] 04-05-2024 11:08-0400 Body weight 87.08 kg [facility] 02-24-2024 09:23-0400 Body height 160.02 cm [facility] 02-24-2024 09:23-0400 Body mass index (BMI) [Ratio] 34.7 kg/m2 [facility] 02-24-2024 09:23-0400 Body weight 89 kg [facility] 01-01-2024 14:16-0500 Body height 160.02 cm [facility] 01-01-2024 14:16-0500 Body mass index (BMI) [Ratio] 31.5 kg/m2 [facility] 01-01-2024 14:16-0500 Body temperature 98.3 [degF] [facility] 01-01-2024 14:16-0500 Body weight 80.73 kg [facility] 01-01-2024 14:16-0500 Heart rate 99 /min [facility] 01-01-2024 14:16-0500 Respiratory rate 18 /min [facility] 01-01-2024 14:16-0500 SaO2% (BldA) [Mass fraction] 98 % [facility] 12-24-2022 09:25-0500 Body height 160.02 cm Aicha Shankar Other [facility] Other 12-24-2022 09:25-0500 Body mass index (BMI) [Ratio] 29.58 kg/m2 Aicha Shankar Other [facility] Other 12-24-2022 09:25-0500 Body temperature 98.8 [degF] Aicha Shankar Other [facility] Other 12-24-2022 09:25-0500 Body weight 75.75 kg Aicha Shankar Other [facility] Other 12-24-2022 09:25-0500 Respiratory rate 18 /min Aicha Shankar Other [facility] Other 12-24-2022 09:25-0500 SaO2% (BldA) [Mass fraction] 95 % Aicha Shankar Other [facility] Other 06-01-2022 18:20-0400 Body height 160.02 cm Aicha Shankar Other [facility] Other 06-01-2022 18:20-0400 Body mass index (BMI) [Ratio] 27.45 kg/m2 Aicha Shankar Other [facility] Other 06-01-2022 18:20-0400 Body temperature 99.5 [degF] Aicha Shankar Other [facility] Other 06-01-2022 18:20-0400 Body weight 70.31 kg Aicha Shankar Other [facility] Other 06-01-2022 18:20-0400 Respiratory rate 18 /min Aicha Shankar Other [facility] Other 06-01-2022 18:20-0400 SaO2% (BldA) [Mass fraction] 98 % Aicha Shankar Other [facility] Other Encounters Encounter Date Encounter Type Care Provider Facility Start: 07-25-2024 End: 07-25-2024 Office outpatient visit 15 minutes Ainsley Sellers [employer] ATTEND[employer] Work Phone: [facility] Comment on above: Anxiety (Primary Dx) ; Obesity (BMI 30-39.9); Rib pain on right side; Acute urinary retention Start: 07-25-2024 End: 07-25-2024 Bamboo flowsheet Ainsley Sellers [employer] ATTENDANT Work Phone: [facility] Start: 07-25-2024 End: 07-28-2024 Bamboo flowsheet Ainsley Sellers [employer] ATTENDANT Work Phone: [facility] Start: 07-25-2024 End: 07-28-2024 Clinisync Result Encounter Generic External Data Provider [facility] External Department Unsolicited Start: 07-17-2024 End: 07-17-2024 Refill Ainsley Verito [employer] ATTENDANT Work Phone: [facility] Comment on above: Anxiety Start: 07-16-2024 End: 07-17-2024 Refill Ainsley Verito [employer] ATTENDANT Work Phone: [facility] Comment on above: Rib pain on right si de; Anxiety Start: 06-26-2024 End: 06-26-2024 Office outpatient visit 15 minutes Ainsley Verito [employer] ATTENDANT Work Phone: [facility] Comment on above: Rib pain on right si de (Primary Dx); Obesity (BMI 30-39.9) Start: 06-26-2024 End: 06-26-2024 ambulatory AINSLEY VERITO Not Available Start: 06-26-2024 End: 06-26-2024 Bamboo flowsheet Ainsley Verito [employer] ATTENDANT Work Phone: [facility] Start: 06-26-2024 End: 06-26-2024 Bamboo flowsheet Ainsley Verito [employer] ATTENDANT Work Phone: [facility] Start: 06-11-2024 End: 06-11-2024 ambulatory AINSLEY VERITO Not Available Start: 05-28-2024 End: 05-28-2024 Admission to same day surgery center Ainsley Sellers Work Phone: [facility] [place] Start: 05-28-2024 End: 05-28-2024 ambulatory Ainsley Sellers Work Phone: [facility] Work Phone: Start: 04-26-2024 End: 04-26-2024 ambulatory AINSLEY VERITO Not Available Start: 04-16-2024 End: 04-16-2024 Patient encounter procedure Ainsley Aichholz Work Phone: [facility] Work Phone: Start: 04-16-2024 End: 04-16-2024 ambulatory Ainsley J Aichholz Work Phone: [facility] Work Phone: Start: 04-16-2024 Encounter for preprocedural laboratory examination Reggie Summers [facility] Start: 04-05-2024 End: 04-05-2024 ambulatory [facility] [place] Work Phone: Start: 04-05-2024 End: 04-05-2024 Patient encounter procedure [facility] Neurosurgery Work Phone: Start: 03-29-2024 End: 03-29-2024 ambulatory AINSLEY AICHHOLZ Not Available Start: 03-22-2024 End: 03-22-2024 ambulatory ODALIS KELBLEY Not Available Start: 03-20-2024 End: 03-23-2024 ambulatory STEPAN NGO Not Available Start: 03-15-2024 End: 03-15-2024 ambulatory ODALIS KELBLEY Not Available Start: 03-13-2024 End: 03-13-2024 ambulatory AINSLEY J EDIHCORINNA [facility] Start: 03-13-2024 End: 03-13-2024 ambulatory RENA SMITH Not Available Start: 03-08-2024 End: 03-08-2024 ambulatory AINSLEY AICHHOLZ Not Available Start: 03-07-2024 End: 03-08-2024 ambulatory RENA SMITH Not Available Start: 02-24-2024 End: 02-24-2024 ambulatory [facility] Work Phone: Start: 02-24-2024 End: 02-24-2024 Patient encounter procedure [facility] Neurosurgery Work Phone: Start: 01-30-2024 End: 01-30-2024 ambulatory AINSLEY EDIHHOLZ Not Available Start: 01-18-2024 End: 01-18-2024 ambulatory SWETA BRIGGS Not Available Start: 01-12-2024 End: 01-12-2024 ambulatory AINSLEY AICHHOLZ Not Available Start: 01-01-2024 End: 01-01-2024 Patient encounter procedure [facility] Work Phone: Start: 12-22-2023 End: 12-22-2023 ambulatory [facility] [employer] Clip Attacher [facility] Comment on above: Encounter for survei llance of injectable contraceptive (Primary Dx) Start: 11-17-2023 End: 11-17-2023 ambulatory AINSLEY AICHHOLZ Not Available Start: 11-15-2023 Telephone encounter Sharri Palma [facility] Obstetrics/Gynecology Start: 10-28-2023 End: 10-29-2023 Emergency department patient visit [facility] Start: 10-28-2023 End: 10-29-2023 Emergency department patient visit [facility] Start: 10-06-2023 End: 10-06-2023 ambulatory SHAIKH ANDREWTRIXIE Not Available Start: 12-24-2022 End: 12-24-2022 ambulatory Aichashirlene Shankar Other [facility] Other Start: 12-24-2022 Office outpatient vi sit 25 minutes Aicha Vonnie [facility] Start: 06-01-2022 End: 06-01-2022 ambulatory Aicha Vonnie Other [facility] Other Start: 06-01-2022 Office outpatient ne w 30 minutes Aicha Vonnie [facility] Start: 03-18-2022 End: 03-19-2022 ambulatory ROUTE SERVICE MANAGER AINSLEY AICHHOLZ Facility:[facility] Start: 01-29-2022 End: 01-29-2022 ambulatory ROUTE SERVICE MANAGER AINSLEY AICHHOLZ Facility:[facility] Start: 11-24-2021 End: 11-27-2021 ambulatory ROUTE SERVICE MANAGER AINSLEY AICHHOLZ Facility:[facility] Start: 11-18-2021 End: 11-19-2021 ambulatory ROUTE SERVICE MANAGER AINSLEY AICHHOLZ Facility:[facility] Start: 10-17-2021 End: 10-17-[address] RANDOLPH CADET Facility:[facility] Start: 01-06-2021 End: 01-21-2021 ambulatory PHYSICIAN UNKNOWN Facility:[facility] Procedures Date Procedure Procedure Detail Performing Clinician Start: 07-25-2024 Bacteria identified in Urine by Culture Generic External Data Provider Start: 05-28-2024 Excision of lumbar intervertebral disc Ainsley Sellers Work Phone: Start: 05-28-2024 X-ray of lumbar spin e, single view Ainsley Sellers Work Phone: Start: 04-26-2023 Adult depression scr eening assessment Sharri Gipson Start: 04-15-2023 Mammography Sharri Gipson Start: 03-24-2022 Microscopic observat ion [Identifier] in Cervix by Cyto stain Sharri Gipson Start: 04-28-2017 Microscopic observat ion [Identifier] in Cervix by Cyto stain Ainsley Sellers GOLF RANGE ATTENDANT Work Phone: Plan of Treatment Date Care Activity Detail Author Start: 03-24-2027 Screening for malignant neoplasm of cervix [facility] Start: 03-24-2025 Screening for malignant neoplasm of cervix Pap Smear [facility] Start: 10-28-2024 Tobacco Screening Tobacco Screening [facility] Start: 08-30-2024 Influenza vaccination Influenza Vacc ine (#1) [facility] Comment on above: Postponed from 07/01 (Patient Does Not Have Time) Start: 07-25-2024 End: 07-25-2024 Patient encounter procedure [facility] Comment on above: Arrived Start: 06-26-2024 End: 06-26-2024 Patient encounter procedure 06/26/2024 4:00 PM EDT Office Visit [facility] [address] [place] [id number] Ainsley Sellers NP [address] [place] [id number] Arrived [facility] Comment on above: Arrived Start: 06-26-2024 End: 06-26-2025 XR Ribs Views and Chest PA XR ribs 2 views right w chest anteroposterior Imaging Routine Rib pain on right side Expected: 06/26/2024 (Approximate), Expires: 06/26/2025 [facility] Work Phone: Comment on above: Expected: 06/26/2024 (Approximate), Expires: 06/26/2025 Start: 05-28-2024 [facility] Start: 05-28-2024 [facility] Start: 04-26-2024 Adult BMI Follow Up Plan Adult BMI Follow Up Plan [facility] Start: 04-26-2024 Adult BMI Screening Adult BMI Screen ing [facility] Start: 04-26-2024 Depression Screening Depression Scre ening [facility] Start: 04-15-2024 Screening for malignant neoplasm of breast Mammogram [facility] Start: 03-13-2024 End: 03-13-2024 ambulatory 03/13/2024 11:45 AM EDT Nurse Injection [facility] [address] [place] [address] [facility] Start: 12-21-2023 End: 12-21-2023 ambulatory 12/21/2023 3:30 PM EST Nurse Injection [facility] [address] [place] [address] [facility] Start: 07-01-2023 COVID-19 Vaccine ( season) COVID-19 Vaccine ( season) [facility] Start: 07-01-2023 Influenza vaccination Influenza Vacc ine [facility] Start: 04-28-2020 Screening for malignant neoplasm of cervix Pap Smear [facility] Start: 1999 DTaP,Tdap and Td Vaccines (1 - Tdap) DTaP,Tdap and Td Vaccines (1 - Tdap) [facility] Start: 1980 Tobacco Counseling Tobacco Counselin g [facility] Bacteria identified in Urine by Culture URINE CULTURE, ROUTINE Lab Routine 07/25/2024 7:35 PM EDT [facility] Patient Education Know your Meds [facility] Work Phone: Patient referral [facility] Work Phone: XR Lumbar spine Views [facility] Immunizations Immunization Date Immunization Notes Care Provider Fa cility 09-03-2022 COVID-19 mRNA Bivale nt Booster (Moderna) Ainsley Aichholz Work Phone: [facility] 09-03-2022 Influenza, injectabl e, Madin Nereyda Canine Kidney, preservative free, quadrivalent Ainsley Aichholz GOLF RANGE ATTENDANT Work Phone: [facility] 09-03-2022 influenza virus vaccine, unspecified formulation Sharri Gipson [facility] 04-12-2021 COVID-19 mRNA-1273 (Moderna) Ainsley Aichholz Work Phone: [facility] 03-15-2021 COVID-19 mRNA-1273 (Moderna) Ainsley Aichholz Work Phone: [facility] 08-29-2016 influenza, seasonal, injectable, preservative free Ainsley Aichholz GOLF RANGE ATTENDANT Work Phone: [facility] 09-04-2010 influenza, seasonal, injectable Ainsley Aichholz GOLF RANGE ATTENDANT Work Phone: [facility] 09-04-2007 influenza virus vaccine, whole virus Ainsley Aichholz GOLF RANGE ATTENDANT Work Phone: [facility] Payers Date Payer Category Payer Self-pay 2022 Private Health Insurance [facility] [employer] [id number] 2022-Present [phone] [address] [address] [place] [address] [id number] 2022 Unknown [employer] [id number] 2022-Present [phone] [address] [address] [place] [address] [id number] .[id number] 2022 Unknown [id number] 2.16.840.1.540531.19 1980 Unknown [id number] 2.16.840.1.754621.3.579 .2.647 1980 Unknown [id number] 2.16.840.1.543795.3.579 .2.593 1980 Unknown [id number] 2.16.840.1.028900.3.579 .2.593 1980 Unknown [id number] 2.16.840.1.872138.3.579 .2.593 1980 Unknown [id number] 2.16.840.1.973997.3.579 .2.593 1980 Unknown [id number] 2.16.840.1.553197.3.579 .2.593 1980 Unknown [id number] 2.16.840.1.565980.3.579 .2.1286 1980 Unknown [id number] 2.16.840.1.724994.3.579 .2.1286 1980 Unknown [id number] 2.16.840.1.748233.3.579 .2.1286 1980 Unknown [id number] 2.16.840.1.334178.3.579 .2.1286 1980 Unknown [id number] 2.16.840.1.975968.3.579 .2.1286 1980 Unknown [id number] 2.16.840.1.047539.3.579 .2.1259 1980 Unknown [id number] 2.16.840.1.031624.3.579 .2.1259 1980 Unknown [id number] 2.16.840.1.523130.3.579 .2.9 1980 Unknown [id number] 2.16.840.1.616035.3.579 .2.1258 1980 Unknown [id number] 2.16.840.1.468399.3.579 .2.1258 1980 Unknown [id number] 2.16.840.1.881769.3.579 .2.1258 1980 Unknown [id number] 2.16.840.1.117863.3.579 .2.1258 1980 Unknown [id number] 2.16.840.1.163085.3.579 .2.1258 1980 Unknown [id number] 2.16.840.1.734445.3.579 .2.1258 1980 Unknown [id number] 2.16.840.1.201413.3.579 .2.1258 1980 Unknown [id number] 2.16.840.1.576256.3.579 .2.1258 1980 Unknown [id number] 2.16.840.1.036138.3.579 .2.1258 1980 Unknown [id number] 2.16.840.1.619446.3.579 .2.1258 1980 Unknown [id number] 2.16.840.1.099860.3.579 .2.1258 1980 Unknown [id number] 2.16.840.1.915126.3.579 .2.1258 1980 Unknown [id number] 2.16.840.1.160805.3.579 .2.1258 1959 Unknown [id number] Unknown [id number] 2.16.840.1.872988.3.579 .2.531 Unknown [id number] 2.16.840.1.929978.3.579 .2.531 Worker's Compensation [id number] Social History Date Type Detail Facility Start: 10-28-2023 End: 11-15-2023 Sex Assigned At [facility] Flare Code Other Start: 04-12-2023 End: 10-06-2023 Tobacco smoking status NHIS Smokes tobacco daily [facility] Start: 10-31-2000 History of tobacco use Cigarette Smo ker [facility] Start: 04-12-2023 End: 11-15-2023 Cigarettes smoked current (pack per day) - Reported 0.[address] [facility] Start: 04-12-2023 End: 10-06-2023 Tobacco use and exposure Smokeless tobacco non-user [facility] Start: 10-28-2023 Alcohol intake Current non-dr cook's assistant of alcohol (finding) [facility] Adolescent depressio n screening assessment [address] [facility] Start: 1980 Sex Assigned At Not on file P [facility] Start: 12-24-2022 Tobacco smoking stat [facility] Never smoked tobacco (finding) [facility] Start: 1980 Sex Assigned At Female F [facility] Start: 04-16-2024 [facility] Start: 05-28-2024 Tobacco smoking stat [facility] Smoker (finding) [facility] Start: 06-26-2024 End: 07-25-2024 Alcoholic beverage intake Ex-drinker (finding) [facility] Goals Date Patient Goal Desired Activity /State Clinical Notes 06-01-2022 to 07-25-2024 Ainsley Sellers NP - 07/25/2024 6:28 PM Ethan Sellers NP - 07/25/2024 6:26 PM DANIEL WINCHESTER - 07/25/2024 6:00 PM Ethan Sellers NP - 07/25/2024 6:00 PM EDT Note Date & Type Note Facility 07-25-2024 History of Presen t illness Narrative Associated Problem(s): Acute urinary retention Only a few drops of urine in office: clear, yellow, mod blood, sm leuk, all others normal Will refer to [facility] ER for evaluation: differentials: UTI, KRYS, pyleo, urinary retention Associated Problem(s): Anxiety Will remain off fluoxetine med for now use benzo prn Will monitor and if worsening in anxiety, will trial different med for anxiety Back stomach pain Images from the original note were not included. Roselia Lo is a 43 y.o. female presents with chief complaint of No chief complaint on file. HPI: Here for fu appt: Still is having some right sided rib pain, cannot wear a bra d/t the pain, she is back to working now. She also stopped her fluoxetine about 3-4 weeks ago as she felt it was giving her very intense nightmares. She also reports that she stopped all her other post op meds at the same time. Ultimately these nightmares have stopped, she is feeling ok from an anxiety and depression stand point and would like to remain off the med. She is also still taking her trazodone for sleep without difficulty Her main complaint today is anuria for 25 hours, feels urge to urinate, no fever, chills, is having abd pain and low back pain, tried some azo's X2, still unable to urinate SUBJECTIVE: MEDICATIONS: Current Outpatient Medications Medication Instructions ALPRAZolam (XANAX) 0.25 mg, Oral, Daily PRN FLUoxetine (PROZAC) 40 mg, Oral, Daily naproxen (NAPROSYN) 500 mg, Oral, Every 12 hours PRN traZODone (DESYREL) 50 mg, Oral, Nightly ALLERGIES: Allergies Allergen Reactions Codeine Sulfate [Codeine] Hives and Hallucinations Benadryl [Diphenhydramine] Rash and Hallucinations REVIEW OF SYMPTOMS: Review of Systems Constitutional: Negative for appetite change, chills and fever. HENT: Negative for congestion, ear pain and sore throat. Eyes: Negative for pain, discharge, redness and visual disturbance. Respiratory: Negative for cough, shortness of breath and wheezing. Rib pain Cardiovascular: Negative for chest pain, palpitations and leg swelling. Gastrointestinal: Negative for abdominal pain, blood in stool, constipation, diarrhea, nausea and vomiting. Genitourinary: Negative for dysuria and frequency. Musculoskeletal: Positive for back pain. Negative for arthralgias, joint swelling and myalgias. Skin: Negative for rash and wound. Neurological: Negative for dizziness, tremors, seizures, syncope and headaches. Psychiatric/Behavioral: Negative for behavioral problems, self-injury and suicidal ideas. The patient is not nervous/anxious. Hematological: Does not bruise/bleed easily. Endocrine: Negative for polydipsia, polyphagia and polyuria. Allergic/Immunologic: Negative for environmental allergies and food allergies. PAST MEDICAL HISTORY Past Medical History: Diagnosis Date Anxiety Anxiety Bunion, left Chronic kidney disease Disc disease, degenerative, lumbar or lumbosacral Diverticulitis 03/29/2024 Erythema ab igne Hip fracture (CMS/HCC) Hot flashes Insomnia Leg pain, bilateral Non-recurrent acute suppurative otitis media of both ears without spontaneous rupture of tympanic membranes Rash in adult Right elbow pain Tenosynovitis, de Quervain Tobacco user Past Surgical History: Procedure Laterality Date CERVICAL BIOPSY W/ LOOP ELECTRODE EXCISION SECTION, LOW TRANSVERSE SECTION, LOW TRANSVERSE SECTION, LOW TRANSVERSE CHOLECYSTECTOMY HIP FRACTURE SURGERY Left Issue with joint ROTATOR CUFF REPAIR Left family history includes Diabetes in her father; Thyroid disease in her sister. OBJECTIVE: Visit Vitals Pulse 89 Temp 98.7 F (Temporal) Resp 19 Ht 5' 3 Wt 203 lb 9.6 oz SpO2 97% BMI 36.07 kg/m Smoking Status Every Day BSA 2.03 m Physical Exam Vitals and nursing note reviewed. Constitutional: General: She is in acute distress (mod). Appearance: Normal appearance. HENT: Head: Normocephalic and atraumatic. Right Ear: External ear normal. Left Ear: External ear normal. Nose: Nose normal. Mouth/Throat: Mouth: Mucous membranes are moist. Eyes: Extraocular Movements: Extraocular movements intact. Conjunctiva/sclera: Conjunctivae normal. Cardiovascular: Rate and Rhythm: Normal rate and regular rhythm. Pulmonary: Effort: Pulmonary effort is normal. Musculoskeletal: General: Normal range of motion. Cervical back: Normal range of motion and neck supple. Skin: General: Skin is warm and dry. Capillary Refill: Capillary refill takes 2 to 3 seconds. Findings: No rash. Neurological: General: No focal deficit present. Mental Status: She is alert and oriented to person, place, and time. Psychiatric: Mood and Affect: Mood normal. Behavior: Behavior normal. Thought Content: Thought content normal. Judgment: Judgment normal. ASSESSMENT AND PLAN: No follow-ups on file. Problem List Items Addressed This Visit Anxiety - Primary Will remain off fluoxetine med for now use benzo prn Will monitor and if worsening in anxiety, will trial different med for anxiety Obesity (BMI 30-39.9) Rib pain on right side Acute urinary retention Only a few drops of urine in office: clear, yellow, mod blood, sm leuk, all others normal Will refer to [facility] ER for evaluation: differentials: UTI, KRYS, pyleo, urinary retention documented in this encounter [facility] 06-26-2024 History of Presen t illness Narrative Associated Problem(s): Rib pain on right side Add naproxen 500mg BID with food Check xray rib study Further treatment as per xray result Pain on the right side/rib area for 7 days now. Pain is constant with pain level base at 6 and will randomly spike to a pain level of 10. Area is very tender to the touch. Images from the original note were not included. Roselia Lo is a 43 y.o. female presents with chief complaint of No chief complaint on file. HPI: Right sided rib pain: no trauma hx, ongoing 7 days, no fever chills or dyspnea or chest pain Sharp pain, rash or other acute symptoms Feels she is healing well from the back surgery SUBJECTIVE: MEDICATIONS: Current Outpatient Medications Medication Instructions ALPRAZolam (XANAX) 0.25 mg, Oral, Daily PRN FLUoxetine (PROZAC) 40 mg, Oral, Daily folic acid (FOLVITE) 1 mg, Oral, Daily naproxen (NAPROSYN) 500 mg, Oral, 2 times daily with meals, Take with food traZODone (DESYREL) 50 mg, Oral, Nightly ALLERGIES: Allergies Allergen Reactions Codeine Sulfate [Codeine] Hives and Hallucinations Benadryl [Diphenhydramine] Rash and Hallucinations REVIEW OF SYMPTOMS: Review of Systems Constitutional: Negative for appetite change, chills and fever. HENT: Negative for congestion, ear pain and sore throat. Eyes: Negative for pain, discharge, redness and visual disturbance. Respiratory: Negative for cough, shortness of breath and wheezing. Cardiovascular: Positive for chest pain (right rib pain). Negative for palpitations and leg swelling. Gastrointestinal: Negative for abdominal pain, blood in stool, constipation, diarrhea, nausea and vomiting. Genitourinary: Negative for difficulty urinating, dysuria and frequency. Musculoskeletal: Negative for arthralgias, back pain, joint swelling and myalgias. Skin: Negative for rash and wound. Neurological: Negative for dizziness, tremors, seizures, syncope and headaches. Psychiatric/Behavioral: Negative for behavioral problems, self-injury and suicidal ideas. The patient is not nervous/anxious. Hematological: Does not bruise/bleed easily. Endocrine: Negative for polydipsia, polyphagia and polyuria. Allergic/Immunologic: Negative for environmental allergies and food allergies. PAST MEDICAL HISTORY Past Medical History: Diagnosis Date Anxiety Anxiety Bunion, left Chronic kidney disease Disc disease, degenerative, lumbar or lumbosacral Diverticulitis 03/29/2024 Erythema ab igne Hip fracture (CMS/HCC) Hot flashes Insomnia Leg pain, bilateral Non-recurrent acute suppurative otitis media of both ears without spontaneous rupture of tympanic membranes Rash in adult Right elbow pain Tenosynovitis, de Quervain Tobacco user Past Surgical History: Procedure Laterality Date CERVICAL BIOPSY W/ LOOP ELECTRODE EXCISION SECTION, LOW TRANSVERSE SECTION, LOW TRANSVERSE SECTION, LOW TRANSVERSE CHOLECYSTECTOMY HIP FRACTURE SURGERY Left Issue with joint ROTATOR CUFF REPAIR Left family history includes Diabetes in her father; Thyroid disease in her sister. OBJECTIVE: Visit Vitals BP 110/70 (BP Location: Left arm, Patient Position: Sitting, BP Cuff Size: Adult long) Pulse 107 Temp 98.1 F (Temporal) Resp 18 Ht 5' 3 Wt 203 lb 9.6 oz SpO2 98% BMI 36.07 kg/m Smoking Status Every Day BSA 2.03 m Physical Exam Vitals and nursing note reviewed. Constitutional: General: She is not in acute distress. Appearance: Normal appearance. HENT: Head: Normocephalic and atraumatic. Right Ear: External ear normal. Left Ear: External ear normal. Nose: Nose normal. Mouth/Throat: Mouth: Mucous membranes are moist. Eyes: Extraocular Movements: Extraocular movements intact. Conjunctiva/sclera: Conjunctivae normal. Cardiovascular: Rate and Rhythm: Normal rate and regular rhythm. Pulses: Normal pulses. Heart sounds: Normal heart sounds. Pulmonary: Effort: Pulmonary effort is normal. Breath sounds: Normal breath sounds. No wheezing, rhonchi or rales. Chest: Chest wall: Tenderness (right anterior rib pain, at 7th-8th rib region, no instability) present. Abdominal: General: Bowel sounds are normal. There is no distension. Palpations: Abdomen is soft. There is no mass. Tenderness: There is no abdominal tenderness. Musculoskeletal: General: Normal range of motion. Cervical back: Normal range of motion and neck supple. Right lower leg: No edema. Left lower leg: No edema. Comments: Right anterior rib pain with rotation bilat Lymphadenopathy: Cervical: No cervical adenopathy. Skin: General: Skin is warm and dry. Capillary Refill: Capillary refill takes 2 to 3 seconds. Findings: No rash (no rash to suggest zoster). Neurological: General: No focal deficit present. Mental Status: She is alert and oriented to person, place, and time. Psychiatric: Mood and Affect: Mood normal. Behavior: Behavior normal. Thought Content: Thought content normal. Judgment: Judgment normal. ASSESSMENT AND PLAN: No follow-ups on file. Problem List Items Addressed This Visit Obesity (BMI 30-39.9) Rib pain on right side - Primary Add naproxen 500mg BID with food Check xray rib study Further treatment as per xray result Relevant Medications naproxen (Naprosyn) 500 MG tablet Other Relevant Orders XR ribs 2 views right w chest anteroposterior documented in this encounter [facility] 12-22-2023 History of Presen t illness Narrative Patient is here for DepoProvera IM administration. Medical history reviewed. Pt denies abnormal bleeding, concerns related to Depo. Urine test negative. Injection administered to ____RUQ . Pt tolerated well, no adverse reactions noted. Patient to return to clinic for next Depo Administration in 10-12 weeks or PRN. Depo calendar given. documented in this encounter [facility] 11-15-2023 Miscellaneous Notes Patient called the [...] understood. SAURABH Camacho documented in this encounter [facility] 11-15-2023 Telephone encounter Note Patient called [...] with recommendations for the patient. Thank you. [facility] 11-15-2023 Telephone encounter Note If patient [...] come in for an appt. Thank you. [facility] 11-15-2023 Telephone encounter Note LVM for patient to return our call [facility] 11-15-2023 Telephone encounter Note Pt called back and informed her of this information. Pt verbalized she understood. SAURABH Camacho [facility] 10-28-2023 Note XR CHEST 2 VWS Procedure: Chest x-ray performed Number of views:2 History:Syncope Comparison:10/03/2010 Findings: The heart and lungs show no acute findings, and the mediastinum and meliza are grossly negative . Impression: 1. No acute change. Finalized by Ronni Roblero MD on 10/28/2023 7:04 PM [facility] 12-24-2022 Evaluation note Encounter Date [...] as decrease in urine, dry mouth, etc [facility] 08-02-2022 Evaluation note* Encounter Date Diagnosis [...] action if you have chronic health conditions. [facility] Other Evaluation note* Diagnosis Encounter for surveillance of injectable contraceptive- Primary [facility] Work Phone: Evaluation note* Diagnosis Onset Date Resolution Status 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 acute [facility] Work Phone: Evaluation note* Diagnosis Onset Date Resolution Status 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 acute 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 acute [facility] Work Phone: Evaluation note* Diagnosis Anxiety Anxiety state, unspecified [facility] Diagnosis Rib pain on right side Anxiety Anxiety state, unspecified [facility] Diagnosis Rib pain on right side- Primary Obesity (BMI 30-39.9) documented in this encounter [facility]* Diagnosis Anxiety- Primary Anxiety state, unspecified Obesity (BMI 30-39.9) Rib pain on right side Acute urinary retention [facility] N[facility] - Reported* Type Description Date Medical History Anxiety Surgical History C section x 3 Surgical History rotator cuff Surgical History cholecystectomy Hospitalization History [facility] Other History general Narrative - Reported* Type Description Date Medical History Anxiety Medical History Neuropathy Surgical History C section x 3 Surgical History rotator cuff Surgical History cholecystectomy Surgical History hip decompression left Hospitalization History [facility] Other Hospital Discharge instructions Additional Instructions DISCHARGE [...] appointment to see your physician in two weeks.[facility] Work Phone: InstructionsNot on filedocumented in this encounter [facility]Not on filedocumented in this [facility] Purpose Family History Relationship Condition [...] and content) DATE CREATED AUTHOR 02/18/2021 [facility] DATE CREATED AUTHOR AUTHOR'S ORGANIZ ATION 06/01/2022 [facility] DATE CREATED AUTHOR AUTHOR'S ORGANIZ ATION 10/30/[address] [facility] DATE CREATED AUTHOR AUTHOR'S ORGANIZ ATION 03/15/2024 [facility] DATE CREATED AUTHOR AUTHOR'S ORGANIZ ATION 06/28/2024 [facility] DATE CREATED AUTHOR AUTHOR'S ORGANIZ ATION 07/05/2024 [facility] REASON FOR VISIT (unrecogniz ed section and content) Reason Comments Contraception Pt is here for DEPO Reason Comments Med Refill Care Teams (unrecognized sec tion and content) Program Development Manager Relationship Specialty Start Date End Date Ainsley Sellers APRN-ROUTE SERVICE MANAGER [address] [place] [address] PCP - General Nurse Practitioner 03/30/22 Program Development Manager Relationship Specialty Start Date End Date Ainsley Sellers APRN-ROUTE SERVICE MANAGER [address] [place] [phone] PCP - General Nurse Practitioner 03/30/22 Team Status: Active Member Role Status Dates Ainsley Sellers Primary Care Provider Active Team Status: Inactive Member Role Status Dates LAMONTE LockettC Attending Provider Active S tart: January 01, 2024 End: January 01, 2024 Ainsley Sellesr Primary Care Provider Active Sta rt: January 01, 2024 End: January 01, 2024 Team Status: Inactive Member Role Status Dates Ainsley Sellers Primary Care Provider Active Sta rt: February 24, 2024 End: February 24, 2024 ALEXIA Carney Active Star t: February 24, 2024 End: February 24, 2024 Reggie Summers MD Attending Provider Active Star t: February 24, 2024 End: February 24, 2024 Team Status: Inactive Member Role Status Dates Ainsley Sellers Primary Care Provider Active Sta rt: April 05, 2024 End: April 05, 2024 Reggie Summers MD Attending Provider Active Star t: April 05, 2024 End: April 05, 2024 Team Status: Inactive Member Role Status Dates Ainsley Sellers Primary Care Provider Active Sta rt: April 16, 2024 End: April 16, 2024 Reggie Summers MD Attending Provider Active Star t: April 16, 2024 End: April 16, 2024 Team Status: Inactive Member Role Status Dates Ainsley Sellers Primary Care Provider Active Sta rt: May 28, 2024 End: May 28, 2024 Reggie Summers MD Attending Provider Active Star t: May 28, 2024 End: May 28, 2024 Program Development Manager Relationship Specialty Start Date End Date Quentin Dawn MD [address] [place] [phone] PCP - General Family Medicine 11/17/23 Ainsley Sellers NP [address] [place] [phone] Nurse Practitioner Family Medicine 11/17/23 Program Development Manager Relationship Specialty Start Date End Date Quentin Dawn MD [address] [place] [phone] PCP - General Family Medicine 11/17/23 Ainsley Sellers NP [address] [place] [phone] Nurse Practitioner Family Medicine 11/17/23 Program Development Manager Relationship Specialty Start Date End Date Quentin Dawn MD [address] [place] [phone] PCP - General Family Medicine 11/17/23 Ainsley Sellers NP [address] [place] [phone] Nurse Practitioner Family Medicine 11/17/23 Program Development Manager Relationship Specialty Start Date End Date Quentin Dawn MD [address] [place] [phone] PCP - General Family Medicine 11/17/23 Ainsley Sellers NP [address] [place] [phone] Nurse Practitioner Family Medicine 11/17/23 Program Development Manager Relationship Specialty Start Date End Date Quentin Dawn MD [address] [place] [phone] PCP - General Family Medicine 11/17/23 Ainsley Sellers NP [address] [place] [phone] Nurse Practitioner Family Medicine 11/17/23 Program Development Manager Relationship Specialty Start Date End Date Quentin Dawn MD [address] [place] [phone] PCP - General Family Medicine 11/17/23 Ainsley Sellers NP [address] [place] [phone] Nurse Practitioner Family Medicine 11/17/23 Goals (unrecognized section and content) Goals may [...] BE BASED ON THE PRIMARY CLINICAL RECORDS. [employer] provides no warranty or guarantee of the accuracy or completeness of information in this document.
--- NOTE | 2024-10-20 20:12 | XR_ITS ---
The [address] [address] Patient Name: ROSELIA LO MRN: [id number] date: 1980 Sex: F Assigned Patient Location: ER Current Patient Location: ER Accession/Order Number: [id number] Exam Date: 10/20/2024 20:17 Report Date: 10/20/2024 22:55 At the request of: LEANA CHOUDHARY Procedure: XR ankle LT min 3V EXAM: XR ankle LT min 3V HISTORY: Pain, injury COMPARISON: None. TECHNIQUE: 3 views were performed. FINDINGS: There is no acute fracture or dislocation. There is a minimal posterior calcaneal spur, and there is a small plantar calcaneal spur consistent with enthesopathy. XR/XR ankle LT min 3V IMPRESSION: 1. No acute osseous abnormality. 2. Calcaneal enthesopathy. Electronically authenticated by: NOEL ARMENDARIZ Date: 10/20/2024 22:55
--- NOTE | 2024-10-20 20:44 | ED_ITS ---
HPI HPI - General Adult General Chief complaint: Extremity Injury, Lower Stated complaint: Extremity Injury, Lower Time Seen by Provider: 10/20/24 20:11 Source: patient Mode of arrival: walk-in Limitations: no limitations History of Present Illness HPI narrative: 44-year-old female to the emergency department chief complaint of injury to her left ankle. Patient reports she was walking down an uneven a ramp when she lost her balance and had an inversion injury of the left ankle. That is hurt ever since. She has increased pain with walking. Related Data Home Medications ?Medication ?Instructions ?Recorded ?Confirmed alprazolam 0.25 mg tablet 0.25 mg PO DAILY 01/31/24 03/24/24 baclofen 10 mg tablet 10 mg PO BID 01/31/24 03/24/24 fluoxetine 40 mg capsule 40 mg PO DAILY 01/31/24 03/24/24 gabapentin 300 mg capsule 300 mg PO TID 01/31/24 03/24/24 trazodone 50 mg tablet 50 mg PO DAILY 01/31/24 03/24/24 folic acid 1 mg tablet 1 mg PO DAILY 03/24/24 03/24/24 Previous Rx's ?Medication ?Instructions ?Recorded ciprofloxacin HCl 500 mg tablet 500 mg PO Q12H #20 tabs 03/24/24 (Cipro) hydrocodone 5 mg-acetaminophen 325 1 tab PO Q6H PRN pain 5 days #20 03/24/24 mg tablet tabs metronidazole 500 mg tablet 500 mg PO TID #30 tabs 03/24/24 ondansetron 4 mg disintegrating 4 mg PO Q6H PRN nausea and 03/24/24 tablet vomiting #20 tabs ciprofloxacin HCl 500 mg tablet 500 mg PO BID 7 days #14 tabs 07/25/24 (Cipro) hydrocodone 5 mg-acetaminophen 325 1 tab PO Q6H PRN pain 3 days #12 07/25/24 mg tablet tabs ketorolac 10 mg tablet 10 mg PO TID PRN pain #6 tabs 07/25/24 ondansetron 4 mg disintegrating 4 mg PO Q6H PRN nausea and 07/25/24 tablet vomiting #12 tabs Allergies Allergy/AdvReac Type Severity Reaction Status Date / Time diphenhydramine (From Allergy Mild Hives Verified 02/14/24 08:57 Benadryl) codeine Allergy Unknown Verified 02/14/24 08:57 Opioid HPI Opioid Management Most Recent Opioid Data: Last Pain Scale 7 03/24/24 20:45 03/24/24 Review of Systems ROS Status of ROS 10 or more systems reviewed and unremark able except as noted in history and below PFSH PFSH Medical History Anxiety ?F41.9 - Anxiety disorder, unspecified (ICD-10) H/O kidney disease ?Z87.448 - Personal history of other diseases of urinary system (ICD-10) Smoker ?F17.200 - Nicotine dependence, unspecified, uncomplicated (ICD-10) Surgical History Status post hip surgery ?Z98.890 - Other specified postprocedural states (ICD-10) H/O arthroscopy of shoulder ?Z98.890 - Other specified postprocedural states (ICD-10) H/O: ?Z98.891 - History of uterine scar from previous surgery (ICD-10) Social History Smoking status: Current every day smoker Little interest or pleasure in doing things: not at all Feeling down, depressed, or hopeless: not at all Exam Narrative Exam Narrative: Left lower Extremity: DP and PT pulses intact. Limb is similar color and temperature to the contralateral limb. Compartments soft. No swelling. No ecchymosis. No medial malleolus tenderness. No lateral malleolus tenderness. There is tenderness over the expected course of the ATFL. No tenderness at the base of the fifth metatarsal. No midfoot tenderness. No fibular head tenderness. Able to bear weight with arches maintained. Sensation is intact over the foot and lower leg. Dorsiflexion/plantar flexion, knee flexion/extension, are grossly intact by strength testing. Constitutional Vital Signs, click to edit/add: Last Vital Signs Temp 98.1 F 10/20/24 20:06 Pulse 92 H 10/20/24 20:06 Resp 18 10/20/24 20:06 BP 139/104 H 10/20/24 20:06 Pulse Ox 99 10/20/24 20:06 O2 Del Method Room Air 10/20/24 20:06 Course Vital Signs Vital signs: Vital Signs Temperature 98.1 F 10/20/24 20:06 Pulse Rate 92 H 12/21/24 20:06 Respiratory Rate 18 10/20/24 20:06 Blood Pressure 139/104 H 10/20/24 20:06 Pulse Oximetry 99 10/20/24 20:06 Oxygen Delivery Method Room Air 10/20/24 20:06 Temperature 98.1 F 10/20/24 20:06 Pulse Rate 92 H 10/20/24 20:06 Respiratory Rate 18 10/20/24 20:06 Blood Pressure 139/104 H 10/20/24 20:06 Pulse Oximetry 99 10/20/24 20:06 Oxygen Delivery Method Room Air 10/20/24 20:06 Medical Decision Making MDM Narrative Medical decision making narrative: 44-year-old female to the emergency department chief complaint of ankle pain. Vital stable, the patient is afebrile. Injury occurred a week ago. The left lower extremity is neurovascularly intact. There is no bony tenderness. There is tenderness over the expected course of the ATFL. Suspect ligamentous injury. X-rays ordered. Patient agrees with this plan. No fracture by my read on the x-ray. She does not want to wait for radiologist read. Suspect a severe injury to the ATFL given her distribution of pain and symptoms. Will place her in a walking boot. Tylenol or ibuprofen at home for pain. Follow-up with podiatry. Return precautions were discussed. All questions were answered. The patient was discharged home. Medical Records Medical records reviewed: Yes I reviewed the patient's medical records Lab Data Lab results reviewed: Yes I reviewed the patient's lab results Imaging Data X-ray left ankle: Attestation: I personally reviewed and interpreted this imaging study as follows: My impression: No acute fracture or dislocation. Discharge Plan Discharge Chief Complaint: Extremity Injury, Lower Clinical Impression: Severe ankle sprain Patient Disposition: Home, Self-Care Time of Disposition Decision: 21:42 Condition: Good Prescriptions / Home Meds: No Action fluoxetine 40 mg capsule 40 mg PO DAILY trazodone 50 mg tablet 50 mg PO DAILY gabapentin 300 mg capsule 300 mg PO TID Rx Instructions: DISP# 120 1 TAB IN THE AM 1 TAB IN THE AFTERNOON 2 TABS AT BEDTIME alprazolam 0.25 mg tablet 0.25 mg PO DAILY baclofen 10 mg tablet 10 mg PO BID folic acid 1 mg tablet 1 mg PO DAILY ciprofloxacin HCl [Cipro] 500 mg tablet 500 mg PO Q12H Qty: 20 0RF metronidazole 500 mg tablet 500 mg PO TID Qty: 30 0RF hydrocodone-acetaminophen 5-325 mg tablet 1 tab PO Q6H PRN (Reason: pain) 5 Days Qty: 20 0RF ondansetron 4 mg tablet,disintegrating 4 mg PO Q6H PRN (Reason: nausea and vomiting) Qty: 20 0RF ciprofloxacin HCl [Cipro] 500 mg tablet 500 mg PO BID 7 Days Qty: 14 0RF hydrocodone-acetaminophen 5-325 mg tablet 1 tab PO Q6H PRN (Reason: pain) 3 Days Qty: 12 0RF Rx Instructions: R10.9 ketorolac 10 mg tablet 10 mg PO TID PRN (Reason: pain) Qty: 6 0RF ondansetron 4 mg tablet,disintegrating 4 mg PO Q6H PRN (Reason: nausea and vomiting) Qty: 12 0RF Print Language: Frisian Instructions: Ankle Sprain (ED), Walking Boot (ED) Additional Instructions: Call the office of your primary care doctor to arrange for follow-up within the above-stated timeframe. Your ED visit was focused on your acute issue and does n ot replace primary care. You should review your labs, imaging, and diagnoses from this ED visit with your primary care physician. There may be non-emergent/ incidental findings that need further evaluation. You should review your vital signs including blood pressure with your PCP. If you were prescribed medications you should discuss possible side-effects and drug interactions with your pharmacist. Call 911 or go to the nearest Emergency Department if you develop any new or worsening symptoms. Tylenol or ibuprofen for pain. Continue to use walking boot until cleared by podiatry Referrals: Dandy Baeza DPM [Physician] - As soon as possible
[2024-10-20 21:56] VITALS: BP 135/89
== END 2024-10-20 21:58 | disposition home or self-care (01) ==
PROVIDERS: Emergency Provider Student in an Organized Health Care Education/Training Program; PCP Nurse Practitioner
DX: S93.402A Sprain of unspecified ligament of left ankle, initial encounter (principal); X50.1XXA Overexertion from prolonged static or awkward postures, initial encounter; F17.200 Nicotine dependence, unspecified, uncomplicated
CPT/HCPCS: 73610; 99283

== ENCOUNTER 2024-10-22 08:17 | Emergency (ER) | payer OTHER, SELFPAY ==
[2024-10-22 08:07] VITALS: BP 147/99; PULSE 99; TEMP 36.8; O2SAT 98; BMI 31.9
--- NOTE | 2024-10-22 08:23 | CT_ITS ---
The [address] [address] Patient Name: ROSELIA LO MRN: [id number] date: 1980 Sex: F Assigned Patient Location: ER Current Patient Location: Accession/Order Number: [id number] Exam Date: 10/22/2024 08:39 Report Date: 10/22/2024 09:31 At the request of: AFUA CARLOS Procedure: CT abdomen pelvis wo con EXAM: CT abdomen pelvis wo con CLINICAL INDICATION: stage 3/4 kidney, luq left flank, left lowe back COMPARISON: CT abdomen/pelvis 07/25/2024 TECHNIQUE: Axial CT of the abdomen, and pelvis was performed from the top of the hemidiaphragms to the inferior osseous pelvis without intravenous contrast. 2-D reformats were obtained. Automatic exposure control radiation dose reduction technology was utilized. FINDINGS: Evaluation is limited by lack of intravenous contrast. Visualized portion of the lung bases are unremarkable. Simple hepatic cyst. Stable chronic right renal atrophy and small simple right renal cysts. The spleen, left kidney, adrenal glands and pancreas are unremarkable. Gallbladder absent. No abdominal aortic aneurysm. No enlarged lymph nodes, free fluid, or free air. Diverticulosis coli. Mild wall thickening and inflammatory change about the distal descending colon. The bowel is without evidence of obstruction, perforation or abscess. Normal appendix. Bladder unremarkable. Simple appearing right adnexal cyst measures up to 5.0 cm, new from prior. No suspicious osseous lesions. CT/CT abdomen pelvis wo con IMPRESSION: 1. Mild acute uncomplicated diverticulitis of the distal descending colon. 2. Probable simple right ovarian cyst measuring up to 5.0 cm. Consider follow-up outpatient pelvic ultrasound in 6-8 weeks. Electronically authenticated by: CASSIA MCCARTHY Date: 10/22/2024 09:31
--- OUTSIDE RECORDS SUMMARY | 2024-10-22 08:30 | XMS_ITS | CCD ---
Author Organization [facility] Care Team Providers Care Ventilation Worker Name Role Phone UNKNOWN, PHYSICIAN Referring Unavailable UNKNOWN, PHYSICIAN Primary Care Unavailable EBRAHEIM, REZA Attending Unavailable EBRAHEIM, REZA Admitting Unavailable AICHHOLZ, CAT DRIVER AINSLEY Admitting Unavailable SVETA, DR TESS Eaton Consulting Unavailable AICHHOLZ, CAT DRIVER AINSLEY Attending Unavailable AICHHOLZ, CAT DRIVER AINSLEY Primary Care Unavailable AICHHOLZ, CAT DRIVER AINSLEY Consulting Unavailable AICHHOLZ, CAT DRIVER AINSLEY Primary Care Unavailable AICHHOLZ, CAT DRIVER AINSLEY Admitting Unavailable AICHHOLZ, CAT DRIVER AINSLEY Attending Unavailable AICHHOLZ, CAT DRIVER AINSLEY Primary Care Unavailable HELIO, DR RANDOLPH Mehta Admitting Unavailable HELIO, DR RANDOLPH Mehta Attending Unavailable HELIO, DR RANDOLPH Mehta Consulting Unavailable HELIO, DR RANDOLPH Mehta Admitting Unavailable YOLANDA, DR NEVAREZ Primary Care Unavailable HELIO, DR RANDOLPH Mehta Attending Unavailable HELIO, DR RANDOLPH Mehta Consulting Unavailable AICHHOLZ, CAT DRIVER AINSLEY Primary Care Unavailable AICHHOLZ, CAT DRIVER AINSLEY Admitting Unavailable AICHHOLZ, CAT DRIVER AINSLEY Attending Unavailable AICHHOLZ, CAT DRIVER AINSLEY Consulting Unavailable Aicha Shankar Unavailable VERITO, AINSLEY J Primary Care Unavailable BRANDON, DIDI Martienz. Attending Unavailable BRANDON, DIDI Juan. Attending Unavailable MARGARETHTO, DIDI E. Referring Unavailable AICHHOLZ, AINSLEY J Primary Care Unavailable MARGARETHTO, DIDI E. Attending Unavailable MARGARETHTO, DIDI E. Referring Unavailable AICHHOLZ, AINSLEY J Primary Care Unavailable Aichholz CASE ASSISTANT-FADI Ainsley J Primary Care Provider VERITO AINSLEY J Referring Unavailable AICHHOLZ, AINSLEY J Primary Care Unavailable AICHHOLLiu, AINSLEY J Referring Unavailable AICHHOLZ, AINSLEY J Primary Care Unavailable Aichholz, Ainsley J Primary Care Provider MD Reggie Summers Attending Provider [phone] AINSLEY SELLERS Attending Unavailable AINSLEY SELLERS Attending [...] Unavailable Quentin Dawn MD Primary Care Provider [phone] Verito SUPPORT CLERKAinsley Unavailable Allergies Allergy Classification Reported Allergen(s) Allergy Type Date of Onset Reaction(s) Facility diphenhydrAMINE (1 source) diphenhydrAMINE; Translations: [BENADRYL] Drug Allergy 08-19-20 10 [facility] Repository (7 sources) Codeine; Translations: [CODEINE] Drug Allergy 05-30-20 13 Seizures The [facility] Repository (1 source) diphenhydrAMINE Drug Allergy 05-30-20 13 The [facility] Repository (13 sources) Codeine Drug Allergy 05-06-20 17 Spoke [facility] [employer] Other (6 sources) diphenhydrAMINE Drug Allergy 02-24-[address] [facility] (4 sources) diphenhydrAMINE; Translations: [DIPHENHYDRAMINE HCL] Drug Allergy 05-06-20 17 [facility] Repository (1 source) Codeine Drug Allergy 06-28-20 24 [facility] Repository (1 source) diphenhydrAMINE Drug Allergy 06-28-20 [facility] Repository (9 sources) diphenhydrAMINE Drug Allergy [...] 1.5 mg/ml oral solution (1 source) Uncompetitive H-izbrkd-F-asparta te Receptor Antagonist, Sigma-1 Agonist Start: 12-24-2022 [place] DM 7.5-7.5 MG/5ML 10 ml Orally every [...] 24, 2024 9:28am take [address] 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 Performed By: #### U HCG #### [address] XR lumbar spine 1Von 024 XR lumbar spine 1V [facility] [place] [address] [place] [address] XRay Report Signed Patient: Roselia Lo MR#: [id number] : 1980 Acct:[id number] Age/Sex: 43 / F ADM Date: 05/28/24 Loc: [place] Room: Type: [facility] Attending Dr: Reggie Summers MD Copies to: [...] WBC (Bld) 0.3 % Normal . [facility] Comment on above: Performed By: #### B MP, CBC #### [address] Automated basophil countOrde red By: Reggie Summers on 04-16-2024 Basophils (Bld) [#/Vol] 0.0 10*3/uL Normal 0.0-0.2 [facility] Comment on above: Result Comment: PERF ORMED BY: [place] [address] PATHOLOGIST STAMPING [employer]CH [employer] MAKER ARACELI HOLLEY M.D. Performed By: #### B MP, CBC #### [address] Automated blood monocyte cou ntOrdered By: Reggie Summers on 04-16-2024 Monocytes (Bld) [#/Vol] 0.7 10*3/uL Normal 0.0-0.8 [facility] Comment on above: Performed By: #### B MP, CBC #### [address] Automated eosinophil %Ordere d By: Reggie Summers on 04-16-2024 Eosinophils/100 WBC (Bld) 6.3 % Normal . [facility] Comment on above: Performed By: #### B MP, CBC #### [address] Automated eosinophil countOr dered By: Reggie Summers on 04-16-2024 Eosinophils (Bld) [#/Vol] 0.5 10*3/uL High 0.0-0.45 [facility] Comment on above: Performed By: #### B MP, CBC #### [address] Automated monocyte %Ordered By: Reggie Summers on 04-16-2024 Monocytes/100 WBC (Bld) 8.7 % Normal . [facility] Comment on above: Performed By: #### B MP, CBC #### [address] Automated neutrophil %Ordere d By: Reggie Summers on 04-16-2024 Neutrophils/100 WBC (Bld) 62.7 % Normal . [facility] Comment on above: Performed By: #### B MP, CBC #### [address] Basic Metabolic Panelon 03-31 GFR/1.73 sq M.predicted MDRD (S/P/Bld) [Vol rate/Area] 52.325 mL/min/{1.73_m2} Normal [facility] Comment on above: Performed By: #### B MP, CBC #### [address] Calcium [Mass/volume] in Ser um or PlasmaOrdered By: Reggie Summers on 04-16-2024 Calcium [Mass/Vol] 8.8 mg/dL Normal 8.6-10.3 [facility] Comment on above: Result Comment: PERF ORMED BY: [place] [address] PATHOLOGIST STAMPING [employer]CH [employer] MAKER ARACELI HOLLEY M.D. Performed By: #### B MP, CBC #### [address] Carbon dioxide, total [Moles /volume] in Serum or PlasmaOrdered By: Reggie Summers on 04-16-2024 CO2 [Moles/Vol] 25.6 mmol/L Normal 21.0-31.0 [facility] Comment on above: Performed By: #### B MP, CBC #### [place] [address] [place] Chloride [Moles/volume] in S ramos or PlasmaOrdered By: Reggie Summers on 04-16-2024 Chloride [Moles/Vol] 106 mmol/L Normal 98-107 [facility] Comment on above: Performed By: #### B MP, CBC #### [address] Complete Blood Count Auto Di ffon 04-16-2024 Mean Corpuscular HGB Conc 33.9 g/dL Normal 32.0-35.0 [facility] Comment on above: Performed By: #### B MP, CBC #### [address] NRBC% 0.1 /100{WBC} Normal 0-0.5 [facility] Comment on above: Performed By: #### B MP, CBC #### [address] Creatinine [Mass/volume] in Serum or PlasmaOrdered By: Reggie Summers on 04-16-2024 Creatinine [Mass/Vol] 1.30 mg/dL High 0.60-1.20 [facility] Comment on above: Performed By: #### B MP, CBC #### [address] Erythrocyte distribution wid th [Ratio] by Automated countOrdered By: Reggie Summers on 04-16-2024 Erythrocyte distribution width (RBC) [Ratio] 13.6 % Normal 11.9-15.3 [facility] Comment on above: Performed By: #### B MP, CBC #### [address] Erythrocytes [#/volume] in B lood by Automated countOrdered By: Reggie Summers on 04-16-2024 RBC (Bld) [#/Vol] 4.10 10*6/uL Normal 3.60-5.00 [facility] Comment on above: Performed By: #### B MP, CBC #### [address] Glucose [Mass/volume] in Ser um or PlasmaOrdered By: Reggie Summers on 04-16-2024 Glucose [Mass/Vol] 63 mg/dL Low 70-100 [facility] Comment on above: ADA recommended refe rence rangeRandom Glucose Reference Range is dependent on time and content of last meal. Glucose of more than 200 mg/dL in a nonstressed, ambulatory subject supports the diagnosis of Diabetes Mellitus. Result Comment: [facility] Glucose Reference Range is dependent on time and content of last meal. Glucose of more than 200 mg/dL in a nonstressed, ambulatory subject supports the diagnosis of Diabetes Mellitus. ADA recommended reference range Performed By: #### B MP, CBC #### [address] Hematocrit [Volume Fraction] of Blood by Automated countOrdered By: Reggie Summers on 04-16-2024 Hematocrit (Bld) [Volume fraction] 40.2 % Normal 34.0-46.4 [facility] Comment on above: Performed By: #### B MP, CBC #### [address] Hemoglobin [Mass/volume] in BloodOrdered By: Reggie Summers on 04-16-2024 Hemoglobin (Bld) [Mass/Vol] 13.6 g/dL Normal 11.8-15.4 [facility] Comment on above: Performed By: #### B MP, CBC #### [address] Leukocytes [#/volume] correc tabatha for nucleated erythrocytes in Blood by Automated counOrdered By: Reggie Summers on 04-16-2024 WBC corrected for nucl RBC Auto (Bld) [#/Vol] 8.3 10*3/uL 3.8-11.6 [facility] Leukocytes [#/volume] in Blo od by Automated countOrdered By: Reggie Summers on 04-16-2024 WBC (Bld) [#/Vol] 8.3 10*3/uL Normal 3.8-11.6 [facility] Comment on above: Performed By: #### B MP, CBC #### [place] [address] [place] Lymphocytes [#/volume] in Bl ood by Automated countOrdered By: Reggie Summers on 04-16-2024 Lymphocytes (Bld) [#/Vol] 1.8 10*3/uL Normal 1.00-4.8 [facility] Comment on above: Performed By: #### B MP, CBC #### [address] Lymphocytes/100 leukocytes i n Blood by Automated countOrdered By: Reggie Summers on 04-16-2024 Lymphocytes/100 WBC (Bld) 22.0 % Normal . [facility] Comment on above: Performed By: #### B MP, CBC #### [facility] [address] [place] [address] MCH [Entitic mass] by Automa tabatha countOrdered By: Reggie Summers on 04-16-2024 MCH (RBC) [Entitic mass] 33.3 pg Normal 24.7-34.3 [facility] Comment on above: Performed By: #### B MP, CBC #### [address] MCHC Auto (RBC) [Mass/Vol]Or dered By: Reggie Summers on 04-16-2024 MCHC (RBC) [Mass/Vol] 33.9 g/dL 32.0-35.0 [facility] MCV [Entitic volume] by Auto mated countOrdered By: Reggie Summers on 04-16-2024 MCV (RBC) [Entitic vol] 98.2 fL Normal 80-100 [facility] Comment on above: Performed By: #### B MP, CBC #### [address] Neutrophils [#/volume] in Bl ood by Automated countOrdered By: Reggie Summers on 04-16-2024 Neutrophils (Bld) [#/Vol] 5.2 10*3/uL Normal 1.8-7.7 [facility] Comment on above: Performed By: #### B MP, CBC #### [address] No Panel InformationOrdered By: Reggie Summers on 04-16-2024 Estimated GFR (CKD-EPI) 52.325 mL/Min [facility] Creatinine Clearance (Chem N/A [facility] Nucleated erythrocytes [Pres ence] in Blood by Automated countOrdered By: Reggie Summers on 04-16-2024 Nucleated RBC Auto Ql (Bld) 0.1 /100{WBC} 0-0.5 [facility] Platelet mean volume [Entiti c volume] in Blood by Automated countOrdered By: Reggie Summers on 04-16-2024 Platelet mean volume (Bld) [Entitic vol] 9.3 fL Normal 6.3-10.7 [facility] Comment on above: Performed By: #### B MP, CBC #### [facility] [address] [place] [address] Platelets [#/volume] in Bloo d by Automated countOrdered By: Reggie Summers on 04-16-2024 Platelets (Bld) [#/Vol] 205 10*3/uL Normal 150-450 [facility] Comment on above: Performed By: #### B MP, CBC #### [address] Potassium [Moles/volume] in Serum or PlasmaOrdered By: Reggie Summers on 04-16-2024 Potassium [Moles/Vol] 4.3 mmol/L Normal 3.5-5.1 [facility] Comment on above: Performed By: #### B MP, CBC #### [facility] [address] [place] [address] Serum or plasma anion gap de terminationOrdered By: Reggie Summers on 04-16-2024 Anion gap [Moles/Vol] 11.7 mmol/L Normal 6.0-15.0 [facility] Comment on above: Performed By: #### B MP, CBC #### [place] [address] [place] Sodium [Moles/volume] in Ser um or PlasmaOrdered By: Reggie Summers on 04-16-2024 Sodium [Moles/Vol] 139 mmol/L Normal 136-145 [facility] Comment on above: Performed By: #### B MP, CBC #### [facility] [address] [place] [address] Urea nitrogen [Mass/volume] in Serum or PlasmaOrdered By: Reggie Summers on 04-16-2024 Urea nitrogen [Mass/Vol] 12 mg/dL Normal 7-25 [facility] Comment on above: Performed By: #### B MP, CBC #### [facility] [address] CBC AND AUTO DIFFon 10-28-20 ABSOLUTE BASOPHIL 0.1 X10E9/L Normal 0.0-0.2 [facility] Comment on above: Performed By: #### 1 39-9, , CBCA, CMP, 76088-8 #### [facility] ([id number]) [address] [place] [address] 86626 ABSOLUTE NEUTROPHIL 10.5 X10E9/L High 1.5-6.6 [facility] Comment on above: Performed By: #### 1 39-9, , CBCA, CMP, 63999-3 #### [facility] ([id number]) [address] [place] [address] 11747 Basophils/100 WBC (Bld) 0.4 % Normal [facility] Comment on above: Performed By: #### 1 399, , CBCA, CMP, 22539-0 #### [facility] ([id number]) [address] [place] [address] 38657 Eosinophils (Bld) [#/Vol] 0.3 10*3/uL Normal 0.0-0.4 [facility] Comment on above: Performed By: #### 1 39-9, , CBCA, CMP, 86067-9 #### [facility] ([id number]) [address] [place] [address] 94761 Eosinophils/100 WBC (Bld) 2.2 % Normal [facility] Comment on above: Performed By: #### 1 39-9, , CBCA, CMP, 29691-1 #### [facility] ([id number]) [address] [place] [address] 90784 Erythrocyte distribution width (RBC) [Ratio] 15.2 % High 11.5-15.0 [facility] Comment on above: Performed By: #### 1 9, , CBCA, CMP, 47080-8 #### [facility] ([id number]) [address] [place] [address] 96051 Hematocrit (Bld) [Volume fraction] 42.7 % Normal 35-47 [facility] Comment on above: Performed By: #### 1 9, , CBCA, CMP, 42915-9 #### [facility] ([id number]) [address] [place] [address] 93010 Hemoglobin (Bld) [Mass/Vol] 14.6 g/dL Normal 11.7-15.5 [facility] Comment on above: Performed By: #### 1 9, , CBCA, CMP, 29717-7 #### [facility] ([id number]) [address] [place] [address] 72762 Lymphocytes (Bld) [#/Vol] 1.7 10*3/uL Normal 1.0-3.5 [facility] Comment on above: Performed By: #### 1 9, , CBCA, CMP, 46457-9 #### [facility] ([id number]) [address] [place] [address] 09722 Lymphocytes/100 WBC (Bld) 12.8 % Normal [facility] Comment on above: Performed By: #### 1 399, , CBCA, CMP, 49535-9 #### [facility] ([id number]) [address] [place] [address] 21043 MCH (RBC) [Entitic mass] 33.8 pg Normal 27-34 [facility] Comment on above: Performed By: #### 1 9, , CBCA, CMP, 53399-4 #### [facility] ([id number]) [address] [place] [address] 04869 MCHC (RBC) [Mass/Vol] 34.3 g/dL Normal 32-36 [facility] Comment on above: Performed By: #### 1 838-9, , CBCA, CMP, 77051-4 #### [facility] ([id number]) [address] [place] [address] 82567 MCV (RBC) [Entitic vol] 99 fL Normal 80-100 [facility] Comment on above: Performed By: #### 1 9, , CBCA, CMP, 57724-2 #### [facility] ([id number]) [address] [place] [address] 11335 Monocytes (Bld) [#/Vol] 0.8 10*3/uL Normal 0-0.9 [facility] Comment on above: Performed By: #### 1 9, , CBCA, CMP, 54295-6 #### [facility] ([id number]) [address] [place] [address] 89072 Monocytes/100 WBC (Bld) 5.7 % Normal [facility] Comment on above: Performed By: #### 1 9, , CBCA, CMP, 10038-4 #### [facility] ([id number]) [address] [place] [address] 29849 Neutrophils/100 WBC (Bld) 78.9 % Normal [facility] Comment on above: Performed By: #### 1 9, , CBCA, CMP, 52084-6 #### [facility] ([id number]) [address] [place] [address] 58631 Platelet mean volume (Bld) [Entitic vol] 8.6 fL Normal 7-12 [facility] Comment on above: Performed By: #### 1 0839-9, , CBCA, CMP, 68262-0 #### [facility] ([id number]) [address] [place] [address] 21843 Platelets (Bld) [#/Vol] 247 10*3/uL Normal 150-450 [facility] Comment on above: Result Comment: PLAT ELETS REVIEWED Performed By: #### 1 0839-9, , CBCA, CMP, 70731-2 #### [facility] ([id number]) [address] [place] [address] 86124 RBC COUNT 4.32 X10E12/L Normal 3.80-5.20 [facility] Comment on above: Performed By: #### 1 0839-9, , CBCA, CMP, 70369-9 #### [facility] ([id number]) [address] [place] [address] 75932 WBC (Bld) [#/Vol] 13.3 10*3/uL High 4.0-11.0 [facility] Comment on above: Performed By: #### 1 0839-9, , CBCA, CMP, 78858-1 #### [facility] ([id number]) [address] [place] [address] 76839 COMPREHENSIVE METABOLIC PANE Scott 10-28-2023 Albumin [Mass/Vol] 4.0 g/dL Normal 3.2-5.3 [facility] Comment on above: Performed By: #### 1 0839-9, , CBCA, CMP, 37311-8 #### [facility] ([id number]) [address] [place] [address] 36782 ALP [Catalytic activity/Vol] 76 U/L Normal 39-130 [facility] Comment on above: Performed By: #### 1 39-9, , CBCA, CMP, 65824-2 #### [facility] ([id number]) [address] [place] [address] 31912 ALT [Catalytic activity/Vol] 18 U/L Normal 0-31 [facility] Comment on above: Performed By: #### 1 39-9, , CBCA, CMP, 71605-3 #### [facility] ([id number]) [address] [place] [address] 04858 Anion gap [Moles/Vol] 3 mmol/L Low 5-15 [facility] Comment on above: Performed By: #### 1 39-9, , CBCA, CMP, 66322-1 #### [facility] ([id number]) [address] [place] [address] 48754 AST [Catalytic activity/Vol] 20 U/L Normal 0-41 [facility] Comment on above: Performed By: #### 1 39-9, , CBCA, CMP, 02814-5 #### [facility] ([id number]) [address] [place] [address] 48882 Bilirubin [Mass/Vol] 0.8 mg/dL Normal 0.3-1.2 [facility] Comment on above: Performed By: #### 1 39-9, , CBCA, CMP, 42097-6 #### [facility] ([id number]) [address] [place] [address] 68451 Calcium [Mass/Vol] 8.6 mg/dL Normal 8.5-10.5 [facility] Comment on above: Performed By: #### 1 0839-9, , CBCA, CMP, 95625-1 #### [facility] ([id number]) [address] [place] [address] 80980 Chloride [Moles/Vol] 113 mmol/L High 98-109 [facility] Comment on above: Performed By: #### 1 39-9, , CBCA, CMP, 34504-1 #### [facility] ([id number]) [address] [place] [address] 34449 CO2 [Moles/Vol] 22 mmol/L Normal 22-32 [facility] Comment on above: Performed By: #### 1 838-9, , CBCA, CMP, 63807-8 #### [facility] ([id number]) [address] [place] [address] 16398 Creatinine [Mass/Vol] 1.15 mg/dL High 0.40-1.00 [facility] Comment on above: Result Comment: METH OD TRACEABLE TO IDMS STANDARD Performed By: #### 1 9, , CBCA, CMP, 62728-9 #### [facility] ([id number]) [address] [place] [address] 26103 GFR/1.73 sq M.predicted among non-blacks MDRD (S/P/Bld) [Vol rate/Area] 61 mL/min/{1.73_m2} Normal >59 [facility] Comment on above: Result Comment: Reported eGFR is based on the CKD-EPI 2020 equation that does not use a race coefficient. Performed By: #### 1 399, , CBCA, CMP, 09301-9 #### [facility] ([id number]) [address] [place] [address] 09339 Glucose [Mass/Vol] 84 mg/dL Normal 65-99 [facility] Comment on above: Performed By: #### 1 08399, , CBCA, CMP, 56419-0 #### [facility] ([id number]) [address] [place] [address] 89376 Potassium [Moles/Vol] 4.7 mmol/L Normal 3.5-5.0 [facility] Comment on above: Performed By: #### 1 0839-9, , CBCA, CMP, 39853-9 #### [facility] ([id number]) [address] [place] [address] 07970 Protein [Mass/Vol] 6.9 g/dL Normal 6.0-8.0 [facility] Comment on above: Performed By: #### 1 08399, , CBCA, CMP, 85538-7 #### [facility] ([id number]) [address] [place] [address] 82325 Sodium [Moles/Vol] 138 mmol/L Normal 134-146 [facility] Comment on above: Performed By: #### 1 08399, , CBCA, CMP, 75622-4 #### [facility] ([id number]) [address] [place] [address] 01697 Urea nitrogen [Mass/Vol] 12 mg/dL Normal 5-23 [facility] Comment on above: Performed By: #### 1 08399, , CBCA, CMP, 91867-9 #### [facility] ([id number]) [address] [place] [address] BRAIN WO CONTon CT BRAIN WO [...] Roblero MD on 10/28/2023 5:13 PM Normal [facility] Fibrin D-dimer DDU (PPP) [Ma ss/Vol]on 10-28-2023 D DIMER <150 Normal <255 [facility] Comment on above: Result Comment: Results <255 ng/mL DDU: The presence of a VTE can safely be excluded with a negative D-Dimer result and Wells score. A negative result doesn't exclude the possibility of DIC. The test be repeated along with other diagnostic tests if the patient's symptoms persist or worsen. [email or web address] Performed By: #### 1 0839-9, 10411-9, CBCA, CMP, 07536-2 #### [facility] ([id number]) [address] [place] [address] 95137 MAGNESIUMon 10-28-2023 Magnesium [Mass/Vol] 2.0 mg/dL Normal 1.8-2.6 [facility] Comment on above: Performed By: #### 1 0839-9, 13957-8, CBCA, CMP, 69395-0 #### [facility] ([id number]) [address] [place] [address] 30727 SARS/FLU A+B/RSV by NAAT/Mol ecularon 10-28-2023 SARS/FLU [...] operators who are performing tests using either BigCalc or SharedReviews systems and is limited to laboratories that [...] repeat. Fact Sheet for Healthcare Providers: https://www.fda.gov /media/860302/downl oad Fact Sheet for Patients: https://www.fda.gov /media/386297/downl oad Normal [facility] Comment on above: Performed By: #### C OVFLR #### [facility] ([id number]) [address] [place] [address] 55623 TROPONIN Ion 10-28-2023 Troponin I.cardiac [Mass/Vol] ng/mL Normal 0.00-0.04 [facility] Comment on above: Performed By: #### 1 0839-9, 21152-4, CBCA, CMP, 54754-2 #### [facility] ([id number]) [address] [place] [address] 42423 URN MACROSCOPIC NURon 2022 BILIRUBIN OLIVIA Negative Normal NEG [facility] Comment on above: Performed By: #### N UM #### [facility] ([id number]) [address] [place] [address] 99024 BLOOD/HGB OLIVIA Trace Abnormal NEG [facility] Comment on above: Performed By: #### N UM #### [facility] ([id number]) [address] [place] [address] [place] [address] GLUCOSE OLIVIA Negative Normal NEG [facility] Comment on above: Performed By: #### N UM #### [facility] ([id number]) [address] [place] [address] 66148 KETONES OLIVIA Negative Normal NEG [facility] [facility] Comment on above: Performed By: #### N UM #### [facility] ([id number]) [address] [place] [address] [place] [address] LEUKOCYTE ESTERASE OLIVIA Negative Normal NEG [facility] Comment on above: Performed By: #### N UM #### [facility] ([id number]) [address] [place] [address] [place] [address] NITRITE OLIVIA Negative Normal NEG [facility] Comment on above: Performed By: #### N UM #### [facility] ([id number]) [address] [place] [address] PH OLIVIA 6.0 Normal 5.0-8.5 [facility] Comment on above: Performed By: #### N UM #### [facility] ([id number]) [address] [place] [address] PROTEIN OLIVIA Negative Normal NEG [facility] Comment on above: Performed By: #### N UM #### [facility] ([id number]) [address] [place] [address] [place] [address] SPECIFIC GRAVITY OLIVIA 1.010 Normal 1.003-1.035 [facility] Comment on above: Performed By: #### N UM #### [facility] ([id number]) [address] [facility] [place] [address] UROBILINOGEN OLIVIA 0.2 eu/dL Normal <1.1 [facility] Comment on above: Performed By: #### N UM #### [facility] ([id number]) [address] [facility] [place] [address] COVID/FLU/RSV RT-PCRon 12-24 SARS-CoV-2 (COVID-19) RNA KAREN+probe Ql (Unsp spec) Negative [facility] [employer] Other COVID/FLU/RSV RT-PCR Negative [facility] [employer] Other SARS-CoV-2 (COVID-19) RNA NA A+probe Ql (Resp)on 06-01-2022 SARS-CoV-2 (COVID-19) RNA KAREN+probe Ql (Unsp spec) Positive [employer] Other REJI by IFAon 03-22-2022 Antinuclear Antibodies, IFA Negative Normal [facility] Comment on above: Result Comment: Nega tive <1:80 Borderline 1:80 Positive >1:80 ICAP nomenclature: AC-0 For more information about Hep-2 cell patterns use ANApatterns.org, the official website for the International Consensus on Antinuclear Antibody (REJI) Patterns (ICAP). Performed By: #### A NAIFA #### [facility] [address] [place] [address] Dr. Andre Haynes THYROID ANTIBODIESon 022 Thyroglobulin Antibody <1.0 Normal 0.0-0.9 [facility] Comment on above: Result Comment: Thyr oglobulin Antibody measured by [employer] Method[employer] Performed By: #### T TIMOBS #### [facility] [address] [place] [address] Dr. Andre Haynes Thyroid Peroxidase (TPO) Ab 10 IU/mL Normal 0-34 [facility] Comment on above: Performed By: #### T TIMOBS #### [facility] [address] [place] [address] Dr. Andre Haynes ANTISTREPTOLYSIN O AB (ASO)o n 03-19-2022 Antistreptolysin O Ab <20.0 Normal 0.0-200.0 [facility] Comment on above: Performed By: #### A SOAB #### [facility] [address] [place] [address] Dr. Andre Haynes RHEUMATOID FACTORon 03-19-20 RA Latex Turbid. <10.0 Normal <14.0 [facility] Comment on above: Performed By: #### R F #### [facility] [address] [place] [address] Dr. Andre Haynes CBC AUTO DIFFon 03-18-2022 BASO # 0.0 103/ul Normal 0.0-0.1 [facility] Comment on above: Performed By: #### C BC #### [facility] [address] [place] [address] Dr. Andre Haynes Basophils/100 WBC (Bld) 0.3 % Normal 0.2-2.0 [facility] Comment on above: Performed By: #### C BC #### [facility] [address] [place] [address] Dr. Andre Haynes EO # 0.4 103/ul Normal 0.0-0.7 [facility] Comment on above: Performed By: #### C BC #### [facility] [address] [place] [address] Dr. Andre Haynes Eosinophils/100 WBC (Bld) 4.0 % Normal 0.9-7.0 [facility] Comment on above: Performed By: #### C BC #### [facility] [address] [place] [address] Dr. Andre Haynes Erythrocyte distribution width (RBC) [Ratio] 12.5 % Normal 11.0-15.0 [facility] Comment on above: Performed By: #### C BC #### [facility] [address] [place] [address] Dr. Andre Haynes Hematocrit (Bld) [Volume fraction] 41.9 % Normal 36.0-48.0 [facility] Comment on above: Performed By: #### C BC #### [facility] [address] [place] [address] Dr. Andre Haynes Hemoglobin (Bld) [Mass/Vol] 14.4 g/dL Normal 12.0-16.0 [facility] Comment on above: Performed By: #### C BC #### [facility] [address] [place] [address] Dr. Andre Haynes IG # 0.04 10e3/ul Critically high 0.00-0.03 [facility] Comment on above: Performed By: #### C BC #### [facility] [address] [place] [address] Dr. Andre Haynes IG % 0.4 % Normal 0.0-0.5 [facility] Comment on above: Performed By: #### C BC #### [facility] [address] [place] [address] Dr. Andre Haynes LYMPH # 2.6 103/ul Normal 1.2-3.8 [facility] Comment on above: Performed By: #### C BC #### [facility] [address] [place] [address] Dr. Andre Haynes Lymphocytes/100 WBC (Bld) 29.2 % Normal 20.5-60.0 [facility] Comment on above: Performed By: #### C BC #### [facility] [address] [place] [address] Dr. Andre Haynes MANUAL DIFF REQ NO Normal [facility] Comment on above: Performed By: #### C BC #### [facility] [address] [place] [address] Dr. Andre Haynes MCH (RBC) [Entitic mass] 33.3 pg Normal 26.7-34.0 [facility] Comment on above: Performed By: #### C BC #### [facility] [address] [place] [address] Dr. Andre Haynes MCHC (RBC) [Mass/Vol] 34.4 g/dL Normal 29.9-35.2 [facility] Comment on above: Performed By: #### C BC #### [facility] [address] [address] [address] Andre Haynes MCV (RBC) [Entitic vol] 97.0 fL Normal 81.0-99.0 [facility] Comment on above: Performed By: #### C BC #### [facility] [address] [address] [address] Andre Haynes MONO # 0.6 103/ul Normal 0.3-0.8 [facility] Comment on above: Performed By: #### C BC #### [facility] [address] [place] [address] Dr. Andre Haynes Monocytes/100 WBC (Bld) 6.4 % Normal 1.7-12.0 [facility] Comment on above: Performed By: #### C BC #### [facility] [address] [place] [address] Dr. Andre Haynes NEUT # 5.4 103/ul Normal 1.4-6.5 [facility] Comment on above: Performed By: #### C BC #### [facility] [address] [place] [address] Dr. Andre Haynes Neutrophils/100 WBC (Bld) 59.7 % Normal 43.0-75.0 [facility] Comment on above: Performed By: #### C BC #### [facility] [address] [place] [address] Dr. Andre Haynes Platelet mean volume (Bld) [Entitic vol] 9.9 fL Normal 9.5-13.5 [facility] Comment on above: Performed By: #### C BC #### [facility] [address] [place] [address] Dr. Andre Haynes PLT 217 103/ul Normal 150-450 [facility] Comment on above: Performed By: #### C BC #### [facility] [address] [place] [address] Dr. Andre Haynes RBC 4.32 106/ul Normal 4.20-5.40 [facility] Comment on above: Performed By: #### C BC #### [facility] [address] [place] [address] Dr. Andre Haynes WBC 9.0 103/ul Normal 4.0-11.0 [facility] Comment on above: Performed By: #### C BC #### [facility] [address] [place] [address] Dr. Andre Haynes CRPon 03-18-2022 CRP [Mass/Vol] mg/L Normal <=1.0 [facility] Comment on above: Performed By: #### R F #### [facility] [address] [place] [address] Dr. Andre Haynes FERRITINon 03-18-2022 Ferritin [Mass/Vol] 35.0 ng/mL Normal 6.2-137.0 [facility] Comment on above: Performed By: #### R F #### [facility] [address] [place] [address] Dr. Andre Haynes FREE T3on 03-18-2022 FREE T3 3.61 pg/mlL Normal 2.18-3.98 [facility] Comment on above: Performed By: #### R F #### [facility] [address] [place] [address] Dr. Andre Haynes FREE T4on 03-18-2022 Free T4 [Mass/Vol] 1.00 ng/dL Normal 0.76-1.46 [facility] Comment on above: Performed By: #### R F #### [facility] [address] [place] [address] Dr. Andre Haynes IRONon 03-18-2022 Iron [Mass/Vol] 87.0 ug/dL Normal 50.0-170.0 The [facility] Comment on above: Performed By: #### R F #### [facility] [address] [place] [address] Dr. Andre Haynes LIVER PROFILEon 03-18-2022 Albumin [Mass/Vol] 3.7 g/dL Normal 3.4-5.0 [facility] Comment on above: Performed By: #### R F #### [facility] [address] [place] [address] Dr. Andre Haynes Albumin/Globulin [Mass ratio] 1.3 {ratio} Normal [facility] Comment on above: Performed By: #### R F #### [facility] [address] [place] [address] Dr. Andre Haynes ALP [Catalytic activity/Vol] 74 U/L Normal 46-116 [facility] Comment on above: Performed By: #### R F #### [facility] [address] [place] [address] Dr. Andre Haynes ALT [Catalytic activity/Vol] 24 U/L Normal 14-59 [facility] Comment on above: Performed By: #### R F #### [facility] [address] [place] [address] Dr. Andre Haynes AST [Catalytic activity/Vol] 13 U/L Critically low 15-37 [facility] Comment on above: Performed By: #### R F #### [facility] [address] [place] [address] Dr. Andre Haynes BILI, CONJUGATED 0.1 mg/dL Normal 0.0-0.2 [facility] Comment on above: Performed By: #### R F #### [facility] [address] [place] [address] Dr. Andre Haynes Bilirubin [Mass/Vol] 0.3 mg/dL Normal 0.2-1.0 [facility] Comment on above: Performed By: #### R F #### [facility] [address] [place] [address] Dr. Andre Haynes Globulin (S) [Mass/Vol] 2.8 g/dL Normal T [facility] Comment on above: Performed By: #### R F #### [facility] [address] [place] [address] Dr. Andre Haynes Protein [Mass/Vol] 6.5 g/dL Normal 6.4-8.2 [facility] Comment on above: Performed By: #### R F #### [facility] [address] [place] [address] Dr. Andre Haynes PROF CHEM 8 (BAS METB)on Anion gap [Moles/Vol] 12.0 mmol/L Normal Th e [facility] Comment on above: Performed By: #### F T3, LIVER, BMP, TSH, URIC, CRP #### [facility] [address] [place] [address] Dr. Andre Haynes Calcium [Mass/Vol] 8.8 mg/dL Normal 8.5-10.1 [facility] Comment on above: Performed By: #### F T3, LIVER, BMP, TSH, URIC, CRP #### [facility] [address] [address] [address] Andre Haynes Chloride [Moles/Vol] 104 mmol/L Normal 98-107 [facility] Comment on above: Performed By: #### F T3, LIVER, BMP, TSH, URIC, CRP #### [facility] [address] [place] [address] Dr. Andre Haynes CO2 [Moles/Vol] 25.8 mmol/L Normal 21.0-32.0 [facility] Comment on above: Performed By: #### F T3, LIVER, BMP, TSH, URIC, CRP #### [facility] [address] [address] [address] Andre Haynes Creatinine [Mass/Vol] 1.05 mg/dL Critically high 0.55-1.02 [facility] Comment on above: Performed By: #### F T3, LIVER, BMP, TSH, URIC, CRP #### [facility] [address] [address] [address] Andre Haynes EGFR-AF IRISH >60 Normal >=60 [facility] Comment on above: Performed By: #### F T3, LIVER, BMP, TSH, URIC, CRP #### [facility] [address] [place] [address] Dr. Andre Haynes EGFR-NON AF IRISH 58 mL/min/1.73m2 Critically low >=60 [facility] Comment on above: Performed By: #### F T3, LIVER, BMP, TSH, URIC, CRP #### [facility] [address] [place] [address] Dr. Andre Haynes Glucose [Mass/Vol] 85 mg/dL Normal 74-106 [facility] Comment on above: Performed By: #### F T3, LIVER, BMP, TSH, URIC, CRP #### [facility] [address] [address] [address] Andre Haynes Potassium [Moles/Vol] 3.8 mmol/L Normal 3.5-5.1 The [facility] Comment on above: Performed By: #### F T3, LIVER, BMP, TSH, URIC, CRP #### [facility] [address] [address] [address] Andre Haynes Sodium [Moles/Vol] 138 mmol/L Normal 136-145 [facility] Comment on above: Performed By: #### F T3, LIVER, BMP, TSH, URIC, CRP #### [facility] [address] [address] [address] Andre Haynes Urea nitrogen [Mass/Vol] 11.0 mg/dL Normal 7.0-18.0 [facility] Comment on above: Performed By: #### F T3, LIVER, BMP, TSH, URIC, CRP #### [facility] [address] [address] [address] Andre Haynes Urea nitrogen/Creatinine [Mass ratio] 10.5 mg/mg Normal The [facility] Comment on above: Performed By: #### F T3, LIVER, BMP, TSH, URIC, CRP #### [facility] [address] [address] [address] Andre Haynes PROTIMEon 03-18-2022 INR Coag (PPP) [Relative time] 1.01 {INR} Normal The [facility] Comment on above: Performed By: #### P TT, PT #### [facility] [address] [address] [address] Andre Haynes INR GUIDELINES SEE BELOW Normal The [facility] Comment on above: Result Comment: BRICE RED INR: 2.0 - 3.0 CONDITIONS NOT LISTED BELOW 2.5 - 3.5 FOR PROSTHETIC HEART VALVE REPLACEMENT 2.5 - 3.5 RECURRENT THROMBOSIS Performed By: #### P TT, PT #### [facility] [address] [place] [address] Dr. Andre Haynes PT Coag (PPP) [Time] 10.9 s Normal 9.0-11.6 [facility] Comment on above: Performed By: #### P TT, PT #### [facility] [address] [place] [address] Dr. Andre Haynes PTTon 03-18-2022 aPTT Coag (Bld) [Time] 27.2 s Normal 22.3-36.[address] [facility] Comment on above: Performed By: #### P TT, PT #### [facility] [address] [place] [address] Dr. Andre Haynes SED RATE [facility] 2021 SED RATE 1 mm/hr Normal <=20 [facility] Comment on above: Performed By: #### A SOAB #### [facility] [address] [place] [address] Dr. Andre Haynes TSHon 03-18-2022 TSH 2.218 uIU/mL Normal 0.358-3.740 [facility] Comment on above: Performed By: #### R F #### [facility] [address] [place] [address] Dr. Andre Haynes TSH RANGE SEE BELOW Normal [facility] Comment on above: Result Comment: <0.3 4 UIU/ml HYPERTHYROID 0.34-5.60 UIU/ml EUTHYROID >5.60 UIU/ml HYPOTHYROID Performed By: #### R F #### [facility] [address] [place] [address] Dr. Andre Haynes UA (CLEAN/CATCH) [employer]ANT OPERATOR SUPERVISOR/MICRO I F IND.on 03-18-2022 Bilirubin Ql (U) Negative Normal NEGATIVE The [facility] Comment on above: Performed By: #### R F #### [facility] [address] [place] [address] Dr. Andre Haynes Clarity (U) CLEAR Normal CLEAR [facility] Comment on above: Performed By: #### R F #### [facility] [address] [place] [address] Dr. Andre Haynes Color (U) YELLOW Normal YELLOW [facility] Comment on above: Performed By: #### R F #### [facility] [address] [place] [address] Dr. Andre Haynes Glucose Ql (U) Negative Normal NEGATIVE [facility] Comment on above: Performed By: #### R F #### [facility] [address] [place] [address] Dr. Andre Haynes Hemoglobin Ql (U) Negative Normal NEGATIVE [facility] Comment on above: Performed By: #### R F #### [facility] [address] [place] [address] Dr. Andre Haynes Ketones Ql (U) Negative Normal NEGATIVE [facility] Comment on above: Performed By: #### R F #### [facility] [address] [place] [address] Dr. Andre Haynes LEUKOCYTES Negative Normal NEGATIVE [facility] Comment on above: Performed By: #### R F #### [facility] [address] [place] [address] Dr. Andre Haynes Nitrite Ql (U) Negative Normal NEGATIVE [facility] Comment on above: Performed By: #### R F #### [facility] [address] [place] [address] Dr. Andre Haynes pH (U) 6.0 [pH] Normal 5-9 [facility] Comment on above: Performed By: #### R F #### [facility] [address] [place] [address] Dr. Andre Haynes SPEC GRAVITY 1.020 Normal 1.005-<=1.02 5 [facility] Comment on above: Performed By: #### R F #### [facility] [address] [place] [address] Dr. Andre Haynes UA PROTEIN Negative Normal NEGATIVE/ TRACE The [facility] Comment on above: Performed By: #### R F #### [facility] [address] [place] [address] Dr. Andre Haynes UR MICRO IND MICROSCOPIC ALREADY ORDERED Normal [facility] Comment on above: Performed By: #### R F #### [facility] [address] [place] [address] Dr. Andre Haynes Urobilinogen Qn (U) 0.2 {Rafal'U}/dL Normal 0.2 - 1. 0 The [facility] Comment on above: Performed By: #### R F #### [facility] [address] [place] [address] Dr. Andre Haynes URIC ACID SERUMon 03-18-2022 Urate [Mass/Vol] 3.9 mg/dL Normal 2.6-6.0 [facility] Comment on above: Performed By: #### R F #### [facility] [address] [place] [address] Dr. Andre Haynes URINE MICROSCOPIC ONLYon BACTERIA NONE SEEN Normal NONE SEEN The [facility] Comment on above: Performed By: #### R F #### [facility] [address] [place] [address] Dr. Andre Haynes Bacteria identified Cx Nom (U) NOT INDICATED Normal The [facility] Comment on above: Performed By: #### R F #### [facility] [address] [place] [address] Dr. Andre Haynes CAST NONE SEEN Normal NONE SEEN The [facility] Comment on above: Performed By: #### R F #### [facility] [address] [place] [address] Dr. Andre Haynes Crystals LM Nom (Urine sed) NONE SEEN Normal NONE SEEN The [facility] Comment on above: Performed By: #### R F #### [facility] [address] [place] [address] Dr. Andre Haynes Epithelial cells LM Ql (Urine sed) FEW Abnormal NONE SEEN /RARE The [facility] Comment on above: Performed By: #### R F #### [facility] [address] [place] [address] Dr. Andre Haynes MUCOUS NONE SEEN Normal NONE SEEN The [facility] Comment on above: Performed By: #### R F #### [facility] [address] [place] [address] Dr. Andre Haynes RBC 0-2 Normal 0-2 The [facility] Comment on above: Performed By: #### R F #### [facility] [address] [place] [address] Dr. Andre Haynes WBC NONE SEEN Normal NONE SEEN The [facility] Comment on above: Performed By: #### R F #### [facility] [address] [place] [address] Dr. Andre Haynes ER URINE PROFILEon 2 Bilirubin Ql (U) Negative Normal NEGATIVE The [facility] Comment on above: Performed By: #### E RUR #### [facility] [address] [place] [address] Dr. Andre Haynes Clarity (U) CLEAR Normal CLEAR [facility] Comment on above: Performed By: #### E RUR #### [facility] [address] [place] [address] Dr. Andre Haynes Color (U) LT. YELLOW Normal YELLOW The [facility] Comment on above: Performed By: #### E RUR #### [facility] [address] [place] [address] Dr. Andre SHAFER A micrscopic examination will be performed if indicated. Normal The [facility] Comment on above: Performed By: #### E RUR #### [facility] [address] [place] [address] Dr. Andre Haynes Glucose Ql (U) Negative Normal NEGATIVE The [facility] Comment on above: Performed By: #### E RUR #### [facility] [address] [place] [address] Dr. Andre Haynes Hemoglobin Ql (U) Negative Normal NEGATIVE The [facility] Comment on above: Performed By: #### E RUR #### [facility] [address] [place] [address] Dr. Andre Haynes Ketones Ql (U) Negative Normal NEGATIVE The [facility] Comment on above: Performed By: #### E RUR #### [facility] [address] [place] [address] Dr. Andre Haynes LEUKOCYTES Negative Normal NEGATIVE [facility] Comment on above: Performed By: #### E RUR #### [facility] [address] [place] [address] Dr. Andre Haynes Nitrite Ql (U) Negative Normal NEGATIVE The [facility] Comment on above: Performed By: #### E RUR #### [facility] [address] [place] [address] Dr. Andre Haynes pH (U) 6.0 [pH] Normal 5-9 [facility] Comment on above: Performed By: #### E RUR #### [facility] [address] [place] [address] Dr. Andre Haynes SPEC GRAVITY <=1.005 Abnormal 1.005-<=1.02 5 [facility] Comment on above: Performed By: #### E RUR #### [facility] [address] [place] [address] Dr. Andre Haynes UA PROTEIN Negative Normal NEGATIVE/ TRACE The [facility] Comment on above: Performed By: #### E RUR #### [facility] [address] [place] [address] Dr. Andre Haynes UR MICRO IND NOT INDICATED Normal The [facility] Comment on above: Performed By: #### E RUR #### [facility] [address] [place] [address] Dr. Andre Haynes Urobilinogen Qn (U) 0.2 {Rafal'U}/dL Normal 0.2 - 1. 0 [facility] Comment on above: Performed By: #### E RUR #### [facility] [address] [place] [address] Dr. Andre Haynes XR LSPINE MIN 4 [...] TESS BANGURA Date: 2021-11-19 07:38 Normal The [facility] OUTSIDE CONSULT MSKon 2020 OUTSIDE CONSULT [facility] Department of Radiology [address] [place] [id number] Patient Name: ROSELIA LO : 1980 Sex: F Age: Race: White Pt. Location: [facility] Patient Status: Ordered Date: 02/05/2021 3:35:00 PM Completed Date: 02/05/2021 03:51 PM Requesting Provider: REZA TUCKER Attending Provider: Report Copy To: Signs & Symptoms: pt has persistent rt sided pectoralis pain and weakness. Assess pectoralis tendon for injury and/or tear History: Mri of rt shoulder from [facility] dated 11/05/20. Over read requested by Dr Tucker Comments: Exam: OUTSIDE CONSULT MSK OUTSIDE CONSULT MSK 02/05/2021 3:51 PM OUTSIDE STUDY: TECHNIQUE: Outside images of the right shoulder obtained from [facility] [facility] dated November 05, 2020. Image review [...] interpretation. Electronically signed: Jonathan Huerta. Transcribed by: [email or web address], User Resident: JONATHAN HUERTA Electronically Signed by: JONATHAN HUERTA @ 02/13/2021 12:32 PM I personally read this/these film(s) with this resident Normal [facility] Vital Signs Date Time Vital Sign Value Performing Clinician Facility 07-25-2024 17:53-0400 Body height 160 cm Ainsley Verito SUPPORT CLERK Work Phone: [facility] 07-25-2024 17:53-0400 Body mass index (BMI) [Ratio] 36.07 kg/m2 Ainsley Verito SUPPORT CLERK Work Phone: [facility] 07-25-2024 17:53-0400 Body temperature 98.71 [degF] Ainsley Verito SUPPORT CLERK Work Phone: [facility] 07-25-2024 17:53-0400 Body weight 92.35 kg Ainsley Verito SUPPORT CLERK Work Phone: [facility] 07-25-2024 17:53-0400 Heart rate 89 /min Ainsley Verito SUPPORT CLERK Work Phone: [facility] 07-25-2024 17:53-0400 Respiratory rate 19 /min Ainsley Verito SUPPORT CLERK Work Phone: [facility] 07-25-2024 17:53-0400 SaO2% (BldA) [Mass fraction] 97 % Ainsley Aichholz SUPPORT CLERK Work Phone: [facility] 06-26-2024 15:58-0400 Body height 160 cm Ainsley Aichholz SUPPORT CLERK Work Phone: [facility] 06-26-2024 15:58-0400 Body mass index (BMI) [Ratio] 36.07 kg/m2 Ainsley Aichholz SUPPORT CLERK Work Phone: [facility] 06-26-2024 15:58-0400 Body temperature 98.1 [degF] Ainsley Aichholz SUPPORT CLERK Work Phone: [facility] 06-26-2024 15:58-0400 Body weight 92.35 kg Ainsley Aichholz SUPPORT CLERK Work Phone: [facility] 06-26-2024 15:58-0400 Diastolic blood pressure 70 mm[Hg] Ainsley Aichholz SUPPORT CLERK Work Phone: [facility] 06-26-2024 15:58-0400 Heart rate 107 /min Ainsley Aichholz SUPPORT CLERK Work Phone: [facility] 06-26-2024 15:58-0400 Respiratory rate 18 /min Ainsley Aichholz SUPPORT CLERK Work Phone: [facility] 06-26-2024 15:58-0400 SaO2% (BldA) [Mass fraction] 98 % Ainsley Aichholz SUPPORT CLERK Work Phone: [facility] 06-26-2024 15:58-0400 Systolic blood pressure 110 mm[Hg] Ainsley Aichholz SUPPORT CLERK Work Phone: [facility] 05-28-2024 14:00-0400 Diastolic blood pressure 92 mm[Hg] Ainsley Aichholz Work Phone: [facility] 05-28-2024 14:00-0400 Heart rate 89 /min Ainsley Aichholz Work Phone: [facility] 05-28-2024 14:00-0400 Respiratory rate 16 /min Ainsleyjoaquina Maoholz Work Phone: [facility] 05-28-2024 14:00-0400 SaO2% (BldA) [Mass fraction] 95 % Ainsleyjoaquina Maoholz Work Phone: [facility] 05-28-2024 14:00-0400 Systolic blood pressure 125 mm[Hg] Ainsley Maoholz Work Phone: [facility] 05-28-2024 12:23-0400 Body temperature 97.9 [degF] Ainsley Maoholz Work Phone: [facility] 05-28-2024 11:38-0400 Inhaled oxygen flow rate 8 L/min Ainsley Maoholz Work Phone: [facility] 05-28-2024 09:07-0400 Body height 160.02 cm Ainsley Maoholz Work Phone: [facility] 05-28-2024 09:07-0400 Body mass index (BMI) [Ratio] 34.7 kg/m2 Ainsley Maoholz Work Phone: [facility] 05-28-2024 09:07-0400 Body weight 88.9 kg Ainsley Maoholz Work Phone: [facility] 04-05-2024 11:08-0400 Body height 160.[address] [facility] 04-05-2024 11:08-0400 Body mass index (BMI) [Ratio] 34 kg/m2 [facility] 04-05-2024 11:08-0400 Body weight 87.[address] [facility] 02-24-2024 09:23-0400 Body height 160.[address] [facility] 02-24-2024 09:23-0400 Body mass index (BMI) [Ratio] 34.7 kg/m2 [facility] 02-24-2024 09:23-0400 Body weight [address] [facility] 01-01-2024 14:16-0500 Body height 160.[address] [facility] 01-01-2024 14:16-0500 Body mass index (BMI) [Ratio] 31.5 kg/m2 [facility] 01-01-2024 14:16-0500 Body temperature 98.3 [degF] [facility] 01-01-2024 14:16-0500 Body weight 80.[address] [facility] 01-01-2024 14:16-0500 Heart rate 99 /min [facility] 01-01-2024 14:16-0500 Respiratory rate 18 /min [facility] 01-01-2024 14:16-0500 SaO2% (BldA) [Mass fraction] 98 % [facility] 12-24-2022 09:25-0500 Body height 160.02 cm Aicha Shankar Other [employer] [facility] [employer] Other 12-24-2022 09:25-0500 Body mass index (BMI) [Ratio] 29.58 kg/m2 Aicha Shankar Other [employer] Other 12-24-2022 09:25-0500 Body temperature 98.8 [degF] Aicha Shankar Other [employer] Other 12-24-2022 09:25-0500 Body weight 75.75 kg Aicha Shankar Other [employer] Other 12-24-2022 09:25-0500 Respiratory rate 18 /min Aicha Shankar Other [employer] Other 12-24-2022 09:25-0500 SaO2% (BldA) [Mass fraction] 95 % Aicha Shankar Other [employer] Other 06-01-2022 18:20-0400 Body height 160.02 cm Aicah Shankar Other [employer] Other 06-01-2022 18:20-0400 Body mass index (BMI) [Ratio] 27.45 kg/m2 Aicha Shankar Other [employer] Other 06-01-2022 18:20-0400 Body temperature 99.5 [degF] Aicha Shankar Other [employer] Other 06-01-2022 18:20-0400 Body weight 70.31 kg Aicha Shankar Other [employer] Other 06-01-2022 18:20-0400 Respiratory rate 18 /min Aicha Shankar Other [employer] Other 06-01-2022 18:20-0400 SaO2% (BldA) [Mass fraction] 98 % Aicha Shankar Other [employer] Other Encounters Encounter Date Encounter Type Care Provider Facility Start: 07-25-2024 End: 07-25-2024 Office outpatient visit 15 minutes Ainsley Sellers SUPPORT CLERK Work Phone: [facility] Comment on above: Anxiety (Primary Dx) ; Obesity (BMI 30-39.9); Rib pain on right side; Acute urinary retention Start: 07-25-2024 End: 07-25-2024 Bamboo flowsheet Ainsley Sellers SUPPORT CLERK Work Phone: [facility] Start: 07-25-2024 End: 07-28-2024 Bamboo flowsheet Ainsley Sellers SUPPORT CLERK Work Phone: [facility] Start: 07-25-2024 End: 07-28-2024 Clinisync Result Encounter Generic External Data Provider [facility] Unsolicited Start: 07-17-2024 End: 07-17-2024 Refill Ainsley Verito SUPPORT CLERK Work Phone: [facility] Comment on above: Anxiety Start: 07-16-2024 End: 07-17-2024 Refill Ainsley Verito SUPPORT CLERK Work Phone: [facility] Comment on above: Rib pain on right si de; Anxiety Start: 06-26-2024 End: 06-26-2024 Office outpatient visit 15 minutes Ainsley Verito SUPPORT CLERK Work Phone: [facility] Comment on above: Rib pain on right si de (Primary Dx); Obesity (BMI 30-39.9) Start: 06-26-2024 End: 06-26-2024 ambulatory AINSLEY VERITO Not Available Start: 06-26-2024 End: 06-26-2024 Bamboo flowsheet Ainsley Verito SUPPORT CLERK Work Phone: [facility] Start: 06-26-2024 End: 06-26-2024 Bamboo flowsheet Ainsley Verito SUPPORT CLERK Work Phone: [facility] Start: 06-11-2024 End: 06-11-2024 ambulatory AINSLEY VERITO Not Available Start: 05-28-2024 End: 05-28-2024 Admission to same day surgery center Ainsley Sellers Work Phone: [facility] [place] Start: 05-28-2024 End: 05-28-2024 ambulatory Ainsley Sellers Work Phone: [facility] Work Phone: Start: 04-26-2024 End: 04-26-2024 ambulatory AINSLEY VERITO Not Available Start: 04-16-2024 End: 04-16-2024 Patient encounter procedure Ainsley Aichholz Work Phone: [facility] [facility] Work Phone: Start: 04-16-2024 End: 04-16-2024 ambulatory Ainsley J Aichholz Work Phone: [facility] Work Phone: Start: 04-16-2024 Encounter for preprocedural laboratory examination Reggie Summers [facility] Start: 04-05-2024 End: 04-05-2024 ambulatory [facility] Work Phone: Start: 04-05-2024 End: 04-05-2024 Patient encounter procedure [facility] Work Phone: Start: 03-29-2024 End: 03-29-2024 ambulatory AINSLEY AICHHOLZ Not Available Start: 03-22-2024 End: 03-22-2024 ambulatory ODALIS KELBLEY Not Available Start: 03-20-2024 End: 03-23-2024 ambulatory STEPAN NGO Not Available Start: 03-15-2024 End: 03-15-2024 ambulatory ODALIS KELBLEY Not Available Start: 03-13-2024 End: 03-13-2024 ambulatory AINSLEY J EDIHCORINNA [facility] Start: 03-13-2024 End: 03-13-2024 ambulatory RENA SMITH Not Available Start: 03-08-2024 End: 03-08-2024 ambulatory AINSLEY AICHHOLZ Not Available Start: 03-07-2024 End: 03-08-2024 ambulatory RENA SMITH Not Available Start: 02-24-2024 End: 02-24-2024 ambulatory [facility] Work Phone: Start: 02-24-2024 End: 02-24-2024 Patient encounter procedure [facility] Neuro[facility] Work Phone: Start: 01-30-2024 End: 01-30-2024 ambulatory AINSLEY EDIHHOLZ Not Available Start: 01-18-2024 End: 01-18-2024 ambulatory SWETA BRIGGS Not Available Start: 01-12-2024 End: 01-12-2024 ambulatory AINSLEY AICHHOLZ Not Available Start: 01-01-2024 End: 01-01-2024 Patient encounter procedure [facility] Work Phone: Start: 12-22-2023 End: 12-22-2023 ambulatory [facility] [employer] [facility] Comment on above: Encounter for survei llance of injectable contraceptive (Primary Dx) Start: 11-17-2023 End: 11-17-2023 ambulatory AINSLEY AICHHOLZ Not Available Start: 11-15-2023 Telephone encounter Sharri Palma [facility] Obstetric[facility]/Gynecology Start: 10-28-2023 End: 10-29-2023 Emergency department patient visit [facility] Start: 10-28-2023 End: 10-29-2023 Emergency department patient visit [facility] Start: 10-06-2023 End: 10-06-2023 ambulatory SHAIKH ANDREWTRIXIE Not Available Start: 12-24-2022 End: 12-24-2022 ambulatory Aichashirlene Shankar Other [employer] Other Start: 12-24-2022 Office outpatient vi sit 25 minutes Aicha Vonnie [facility] Start: 06-01-2022 End: 06-01-2022 ambulatory Aicha Vonnie Other [employer] Other Start: 06-01-2022 Office outpatient ne w 30 minutes Aicha Vonnie [facility] Start: 03-18-2022 End: 03-19-2022 ambulatory CAT DRIVER AINSLEY AICHHOLZ Facility:[facility] Start: 01-29-2022 End: 01-29-2022 ambulatory CAT DRIVER AINSLEY AICHHOLZ Facility:[facility] Start: 11-24-2021 End: 11-27-2021 ambulatory CAT DRIVER AINSLEY AICHHOLZ Facility:[facility] Start: 11-18-2021 End: 11-19-2021 ambulatory CAT DRIVER AINSLEY AICHHOLZ Facility:[facility] Start: 10-17-2021 End: 10-17-[address] RANDOLPH CADET Facility:[facility] Start: 01-06-2021 End: 01-21-2021 ambulatory PHYSICIAN UNKNOWN Facility:[facility] Procedures Date Procedure Procedure Detail Performing Clinician [...] in Cervix by Cyto stain Ainsley Sellers SUPPORT CLERK Work Phone: Plan of Treatment Date Care Activity Detail Author Start: 03-24-2027 Screening for malignant neoplasm of cervix [facility] Start: 03-24-2025 Screening for malignant neoplasm of cervix Pap Smear [facility] Start: 10-28-2024 Tobacco Screening Tobacco Screening [facility] Start: 08-30-2024 Influenza vaccination Influenza Vacc ine (#1) [facility] Comment on above: Postponed from 07/01 (Patient Does Not Have Time) Start: 07-25-2024 End: 07-25-2024 Patient encounter procedure [facility] Comment on above: Arrived Start: 06-26-2024 End: 06-26-2024 Patient encounter procedure 06/26/2024 4:00 PM EDT Office Visit [facility] [address] [place] [id number] Ainsley Sellers NP [address] [place] [phone] Arrived [facility] Comment on above: Arrived Start: 06-26-2024 End: 06-26-2025 XR Ribs Views and Chest PA XR ribs 2 views right w chest anteroposterior Imaging Routine Rib pain on right side Expected: 06/26/2024 (Approximate), Expires: 06/26/2025 [facility] Work Phone: Comment on above: Expected: 06/26/2024 (Approximate), Expires: 06/26/2025 Start: 05-28-2024 [facility] Start: 05-28-2024 [facility] Start: 04-26-2024 Adult BMI Follow Up Plan Adult BMI Follow Up Plan [facility] Start: 04-26-2024 Adult BMI Screening Adult BMI Screen ing [facility] Start: 04-26-2024 Depression Screening Depression Scre ening [facility] Start: 04-15-2024 Screening for malignant neoplasm of breast Mammogram [facility] Start: 03-13-2024 End: 03-13-2024 ambulatory 03/13/2024 11:45 AM EDT Nurse Injection [facility] [address] [place] [address] [facility] Start: 12-21-2023 End: 12-21-2023 ambulatory 12/21/2023 3:30 PM EST Nurse Injection [facility] [address] [place] [address] [facility] Start: 07-01-2023 COVID-19 Vaccine ( season) COVID-19 Vaccine ( season) [facility] Start: 07-01-2023 Influenza vaccination Influenza Vacc ine [facility] Start: 04-28-2020 Screening for malignant neoplasm of cervix Pap Smear [facility] Start: 1999 DTaP,Tdap and Td Vaccines (1 - Tdap) DTaP,Tdap and Td Vaccines (1 - Tdap) [facility] Start: 1980 Tobacco Counseling Tobacco Counselin g [facility] Bacteria identified in Urine by Culture URINE CULTURE, ROUTINE Lab Routine 07/25/2024 7:35 PM EDT [facility] Patient Education Know your Meds [facility] Work Phone: Patient referral [facility] Work Phone: XR Lumbar spine Views [facility] Immunizations Immunization Date Immunization Notes Care Provider Fa cility 09-03-2022 COVID-19 mRNA Bivale nt Booster (Moderna) Ainsley Aichholz Work Phone: [facility] 09-03-2022 Influenza, injectabl e, Madin Nereyda Canine Kidney, preservative free, quadrivalent Ainsley Aichholz SUPPORT CLERK Work Phone: [facility] 09-03-2022 influenza virus vaccine, unspecified formulation Sharri Gipson [facility] 04-12-2021 COVID-19 mRNA-1273 (Moderna) Ainsley Aichholz Work Phone: [facility] 03-15-2021 COVID-19 mRNA-1273 (Moderna) Ainsley Aichholz Work Phone: [facility] 08-29-2016 influenza, seasonal, injectable, preservative free Ainsley Aichholz SUPPORT CLERK Work Phone: [facility] 09-04-2010 influenza, seasonal, injectable Ainsley Aichholz SUPPORT CLERK Work Phone: [facility] 09-04-2007 influenza virus vaccine, whole virus Ainsley Aichholz SUPPORT CLERK Work Phone: [facility] Payers Date Payer Category Payer Self-pay 2022 Private Health Insurance [facility] [employer] [id number] 2022-Present [phone] [address] [address] [place] [address] [id number] 2022 Unknown [employer] [id number] 2022-Present [phone] [address] [address] [place] [address] [id number] .[id number] 2022 Unknown [id number] 2.16.840.1.041337.19 1980 Unknown [id number] 2.16.840.1.379809.3.579 .2.647 1980 Unknown [id number] 2.16.840.1.080601.3.579 .2.593 1980 Unknown [id number] 2.16.840.1.325965.3.579 .2.593 1980 Unknown [id number] 2.16.840.1.624400.3.579 .2.593 1980 Unknown [id number] 2.16.840.1.000319.3.579 .2.593 1980 Unknown [id number] 2.16.840.1.855193.3.579 .2.593 1980 Unknown [id number] 2.16.840.1.617467.3.579 .2.1286 1980 Unknown [id number] 2.16.840.1.020628.3.579 .2.1286 1980 Unknown [id number] 2.16.840.1.528336.3.579 .2.1286 1980 Unknown [id number] 2.16.840.1.973037.3.579 .2.1286 1980 Unknown [id number] 2.16.840.1.845863.3.579 .2.1286 1980 Unknown [id number] 2.16.840.1.073771.3.579 .2.1259 1980 Unknown [id number] 2.16.840.1.741928.3.579 .2.1259 1980 Unknown [id number] 2.16.840.1.295641.3.579 .2.9 1980 Unknown [id number] 2.16.840.1.966328.3.579 .2.1258 1980 Unknown [id number] 2.16.840.1.958283.3.579 .2.1258 1980 Unknown [id number] 2.16.840.1.185599.3.579 .2.1258 1980 Unknown [id number] 2.16.840.1.853040.3.579 .2.1258 1980 Unknown [id number] 2.16.840.1.901222.3.579 .2.1258 1980 Unknown [id number] 2.16.840.1.951303.3.579 .2.1258 1980 Unknown [id number] 2.16.840.1.596029.3.579 .2.1258 1980 Unknown [id number] 2.16.840.1.217549.3.579 .2.1258 1980 Unknown [id number] 2.16.840.1.337827.3.579 .2.1258 1980 Unknown [id number] 2.16.840.1.081835.3.579 .2.1258 1980 Unknown [id number] 2.16.840.1.922666.3.579 .2.1258 1980 Unknown [id number] 2.16.840.1.279468.3.579 .2.1258 1980 Unknown [id number] 2.16.840.1.428049.3.579 .2.1258 1959 Unknown [id number] Unknown [id number] 2.16.840.1.684156.3.579 .2.531 Unknown [id number] 2.16.840.1.032766.3.579 .2.531 Worker's Compensation [id number] Social History Date Type Detail Facility Start: 10-28-2023 End: 11-15-2023 Sex Assigned At [facility] [employer] Other Start: 04-12-2023 End: 10-06-2023 Tobacco smoking status NHIS Smokes tobacco daily [facility] Start: 10-31-2000 History of tobacco use Cigarette Smo ker [facility] Start: 04-12-2023 End: 11-15-2023 Cigarettes smoked current (pack per day) - Reported 0.5 [facility] Start: 04-12-2023 End: 10-06-2023 Tobacco use and exposure Smokeless tobacco non-user [facility] Start: 10-28-2023 Alcohol intake Current non-dr inverter and clipper of alcohol (finding) [facility] Adolescent depressio n screening assessment 7 [facility] Start: 1980 Sex Assigned At Not on file P [facility] Start: 12-24-2022 Tobacco smoking stat [facility] Never smoked tobacco (finding) [facility] Start: 1980 Sex Assigned At Female F [facility] Start: 04-16-2024 [facility] Start: 05-28-2024 Tobacco smoking stat [facility] Smoker (finding) [facility] Start: 06-26-2024 End: 07-25-2024 Alcoholic beverage [...] leuk, all others normal Will refer to [facility] for evaluation: differentials: UTI, KRYS, pyleo, [...] leuk, all others normal Will refer to [facility] ER for evaluation: differentials: UTI, KRYS, pyleo, urinary retention documented in this encounter [facility] 06-26-2024 History of Presen t illness [...] w chest anteroposterior documented in this encounter [facility] 12-22-2023 History of Presen t illness Narrative Patient is here for DepoProvera IM administration. Medical history reviewed. Pt denies abnormal bleeding, concerns related to Depo. Urine test negative. Injection administered to ____RUQ . Pt tolerated well, no adverse reactions noted. Patient to return to clinic for next Depo Administration in 10-12 weeks or PRN. Depo calendar given. documented in this encounter [facility] 11-15-2023 Miscellaneous Notes Patient called [...] understood. SAURABH Camacho documented in this encounter [facility] 11-15-2023 Telephone encounter Note Patient [...] with recommendations for the patient. Thank you. [facility] 11-15-2023 Telephone encounter Note If patient is [...] come in for an appt. Thank you. [facility] 11-15-2023 Telephone encounter Note LVM for patient to return our call [facility] 11-15-2023 Telephone encounter Note Pt called back and informed her of this information. Pt verbalized she understood. SAURABH Camacho [facility] 10-28-2023 Note XR CHEST 2 VWS Procedure: Chest x-ray performed Number of views:2 History:Syncope Comparison:10/03/2010 Findings: The heart and lungs show no acute findings, and the mediastinum and meliza are grossly negative . Impression: 1. No acute change. Finalized by Ronni Roblero MD on 10/28/2023 7:04 PM [facility] 12-24-2022 Evaluation note Encounter Date [...] as decrease in urine, dry mouth, etc [employer] Other 08-02-2022 Evaluation note* Encounter Date Diagnosis [...] action if you have chronic health conditions. [employer] Other Evaluation note* Diagnosis Encounter for surveillance of injectable contraceptive- Primary [facility] Work Phone: Evaluation note* Diagnosis Onset Date Resolution Status 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 acute [facility] Work Phone: Evaluation note* Diagnosis Onset Date Resolution Status 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 acute 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 acute [facility] Work Phone: Evaluation note* Diagnosis Anxiety Anxiety state, unspecified [facility] Diagnosis Rib pain on right side Anxiety Anxiety state, unspecified [facility] Diagnosis Rib pain on right side- Primary Obesity (BMI 30-39.9) documented in this encounter [facility]* Diagnosis Anxiety- Primary Anxiety state, unspecified Obesity (BMI 30-39.9) Rib pain on right side Acute urinary retention [facility] N[facility]ative - Reported* Type Description Date Medical History Anxiety Surgical History C section x 3 Surgical History rotator cuff Surgical History cholecystectomy Hospitalization History [employer] Other History general Narrative - Reported* Type Description Date Medical History Anxiety Medical History Neuropathy Surgical History C section x 3 Surgical History rotator cuff Surgical History cholecystectomy Surgical History hip decompression left Hospitalization History [employer] Other Hospital Discharge instructions Additional Instructions DISCHARGE [...] appointment to see your physician in two weeks.[facility] Work Phone: InstructionsNot on filedocumented in this encounter [employer] SystemInstructionsNot on filedocumented in this encounter [facility] Summary Purpose Family History Relationship Condition [...] and content) DATE CREATED AUTHOR 02/18/2021 [facility] DATE CREATED AUTHOR AUTHOR'S ORGANIZ ATION 06/01/2022 [facility] DATE CREATED AUTHOR AUTHOR'S ORGANIZ ATION 10/30/2023 [facility] DATE CREATED AUTHOR AUTHOR'S ORGANIZ ATION 03/15/2024 [facility] DATE CREATED AUTHOR AUTHOR'S ORGANIZ ATION 06/28/[address] [facility] DATE CREATED AUTHOR AUTHOR'S ORGANIZ ATION 07/05/2024 [facility] REASON FOR VISIT (unrecogniz ed section and content) Reason Comments Contraception Pt is here for DEPO Reason Comments Med Refill Care Teams (unrecognized sec tion and content) Ventilation Worker Relationship Specialty Start Date End Date Ainsley Sellers APRN-CAT DRIVER [address] [place] [address] PCP - General Nurse Practitioner 03/30/22 Ventilation Worker Relationship Specialty Start Date End Date Ainsley Sellers APRN-CAT DRIVER [address] [place] [phone] PCP - General Nurse Practitioner 03/30/22 Team [...] May 28, 2024 End: May 28, 2024 Ventilation Worker Relationship Specialty Start Date End Date Quentin Dawn MD [address] [place] [phone] PCP - General Family Medicine 11/17/23 Ainsley Sellers NP [address] [place] [phone] Nurse Practitioner Family Medicine 11/17/23 Ventilation Worker Relationship Specialty Start Date End Date Quentin Dawn MD [address] [place] [phone] PCP - General Family Medicine 11/17/23 Ainsley Sellers NP [address] [place] [phone] Nurse Practitioner Family Medicine 11/17/23 Ventilation Worker Relationship Specialty Start Date End Date Quentin Dawn MD [address] [place] [phone] PCP - General Family Medicine 11/17/23 Ainsley Sellers NP [address] [place] [phone] Nurse Practitioner Family Medicine 11/17/23 Ventilation Worker Relationship Specialty Start Date End Date Quentin Dawn MD [address] [place] [phone] PCP - General Family Medicine 11/17/23 Ainsley Sellers NP [address] [place] [phone] Nurse Practitioner Family Medicine 11/17/23 Ventilation Worker Relationship Specialty Start Date End Date Quentin Dawn MD [address] [place] [phone] PCP - General Family Medicine 11/17/23 Ainsley Sellers NP [address] [place] [phone] Nurse Practitioner Family Medicine 11/17/23 Ventilation Worker Relationship Specialty Start Date End Date Quentin Dawn MD [address] [place] [phone] PCP - General Family Medicine 11/17/23 Ainsley Sellers NP [address] [place] [phone] Nurse Practitioner Family Medicine 11/17/23 Goals (unrecognized [...] BE BASED ON THE PRIMARY CLINICAL RECORDS. [employer] provides no warranty or guarantee of the accuracy or completeness of information in this document.
[2024-10-22] MEDS: DICYCLOMINE HCL 20 MG/2 ML VIAL IM (08:31)
[2024-10-22] MEDS: HYDROMORPHONE HCL 1 MG/ML CARTRIDGE IV (08:31)
[2024-10-22 08:40] LABS: Basophils Percent Auto 0.4 % (0.2-2.0); Eosinophils Absolute Auto 0.3 10^3/uL (0.0-0.7); Eosinophils Percent Auto 2.3 % (0.9-7.0); Hematocrit 38.8 % (36.0-48.0); Hemoglobin 13.4 g/dL (12.0-16.0); Immature Granulocytes Abs Auto 0.06 10^3/uL (0.00-0.03); Immature Granulocytes Pct Auto 0.5 % (0.0-0.5); Lymphocytes Absolute Auto 1.5 10^3/uL (1.2-3.8); Lymphocytes Percent Auto 13.2 % (20.5-60.0); Mean Corpuscular HGB Conc 34.5 g/dL (29.9-35.2); Mean Corpuscular Hemoglobin 34.6 pg (26.7-34.0); Mean Corpuscular Volume 100.3 fL (81.0-99.0); Mean Platelet Volume 10.2 fL (9.5-13.5); Monocytes Absolute Auto 0.9 10^3/uL (0.3-0.8); Monocytes Percent Auto 7.8 % (1.7-12.0); Neutrophils Absolute Auto 8.5 10^3/uL (1.4-6.5); Neutrophils Percent Auto 75.8 % (43.0-75.0); Platelet Count 267 10^3/uL (150-450); Red Blood Count 3.87 10^6/uL (4.20-5.40); Red Cell Distribution Width 13.9 % (11.0-15.0); White Blood Count 11.2 10^3/uL (4.0-11.0)
[2024-10-22 08:45] LABS: HCG Qualitative Urine* NEGATIVE (NEGATIVE); Internal Control Within Normal Limits
--- NOTE | 2024-10-22 08:46 | ED.GENADUL1 ---
HPI HPI - General Adult General Chief complaint: Abdominal Pain Stated complaint: LEFT FLANK PAIN Time Seen by Provider: 10/22/24 08:22 Source: patient Mode of arrival: ambulance Limitations: no limitations History of Present Illness HPI narrative: Patient is a 44-year-old female who is presenting to the ER today with chief complaint of left upper quadrant, left flank and left back pain has been intermittent but consistent since yesterday afternoon. Patient has not had a colonoscopy yet. 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 is at bedside. Patient has had nausea and vomiting this morning as well. No urinary frequency urgency or burning. Patient has not noted blood in her urine. Patient had a CAT scan on July 25, 2024. Patient has been to the ER several times this year for abdominal pain, she cannot recall if this is similar to the pain previously. at bedside stated that patient has had diverticulitis previously, and reviewing CAT scan on July 25 she was diagnosed with diverticulosis, not diverticulitis. Patient has no history of kidney stones. Patient has had a kidney infection before secondary to UTI. Patient states she has had diarrhea and loose stool yesterday and today. Patient adamantly states that she is not constipated. Patient is holding her left upper quadrant, pushing on it to help the pain improved. Patient came in by EMS. [place] Patient was given Toradol, Zofran and fentanyl. Zofran did help with nausea, fentanyl has worn off and patient still having a significant amount of pain to left upper quadrant. No other acute complaints at this time. No chest pain or shortness of breath. Patient does not have her gallbladder, she does have her appendix. Patient has not had a menses in 1 year, states she is not . is at bedside, helpful with the history. Patient denies any type of fall or trauma. All systems are negative except as noted/marked. All systems reviewed and otherwise negative. Nurses note and vital signs reviewed and patient is not hypoxic. General: The patient appears moderate distress secondary to pain, patient is holding and pushing up in her left upper quadrant underneath her ribs.. Patient is resting uncomfortably on cart. Patient is not toxic, lethargic, or listless patient looks very uncomfortable., Writhing in the bed. Grimace to the right face. Skin: Warm, dry, no pallor noted. There is no rash noted. No petechiae, purpura. Head: Normocephalic, atraumatic Eye: Normal conjunctiva, no drainage, EOMI. PERRL Ears, Nose, Mouth, and Throat: oral mucosa is moist. Nares patent. Mouth without vesicles. Cardiovascular: Regular Rate and Rhythm, no murmur, gallop, rub Respiratory: Patient is in no distress, no accessory muscle use, lungs are clear to auscultation, no wheezing, rales or rhonchi Back: non-tender, no CVA tenderness bilaterally to percussion. No CT LS midline pain GI: Patient has moderate to severe left upper quadrant tenderness palpation, moderate left flank and left CVA tenderness to palpation, no rash. No left lower quadrant or suprapubic tenderness palpation. No right lower quadrant tenderness palpation. No tenderness to palpation, no masses appreciated. No rebound, guarding, or rigidity noted. No distention Musculoskeletal: Patient has full range of motion of all of the extremities, no motor, sensory, or focal neurological deficits Neurological: A&O x4, normal speech Psychiatric: Cooperative Related Data Home Medications ?Medication ?Instructions ?Recorded ?Confirmed alprazolam 0.25 mg tablet 0.25 mg PO DAILY 01/31/24 10/22/24 fluoxetine 40 mg capsule 40 mg PO DAILY 01/31/24 10/22/24 trazodone 50 mg tablet 50 mg PO DAILY 01/31/24 10/22/24 Previous Rx's ?Medication ?Instructions ?Recorded amoxicillin 875 mg-potassium 1 tab PO Q12H 10 days #20 tabs 10/22/24 clavulanate 125 mg tablet dicyclomine 20 mg tablet 20 mg PO TID PRN abdominal pain #7 10/22/24 tabs hydrocodone 5 mg-acetaminophen 325 1 tab PO Q4H PRN pain #10 tabs 10/22/24 mg tablet ondansetron 4 mg disintegrating 4 mg PO Q4H PRN nausea and 10/22/24 tablet vomiting 3 days #6 tabs Allergies Allergy/AdvReac Type Severity Reaction Status Date / Time diphenhydramine (From Allergy Mild Hives Verified 10/22/24 08:13 Benadryl) codeine Allergy Unknown Hives Verified 10/22/24 08:13 Opioid HPI Opioid Management Most Recent Opioid Data: Last Pain Scale 6 10/22/24 10:07 10/22/24 Last ED Pain Assessment 10/22/24 09:40 Last MAR Pain Assessment 10/22/24 10:07 PFSH PFSH Medical History Anxiety ?F41.9 - Anxiety disorder, unspecified (ICD-10) H/O kidney disease ?Z87.448 - Personal history of other diseases of urinary system (ICD-10) Smoker ?F17.200 - Nicotine dependence, unspecified, uncomplicated (ICD-10) Surgical History (Updated 10/22/24 @ 08:56 by Rodolfo La) History of cholecystectomy ?Z90.49 - Acquired absence of other specified parts of digestive tract (ICD-10) Status post hip surgery ?Z98.890 - Other specified postprocedural states (ICD-10) H/O arthroscopy of shoulder ?Z98.890 - Other specified postprocedural states (ICD-10) H/O: ?Z98.891 - History of uterine scar from previous surgery (ICD-10) Social History Smoking status: Current every day smoker Little interest or pleasure in doing things: not at all Feeling down, depressed, or hopeless: not at all Exam Constitutional Vital Signs, click to edit/add: Last Vital Signs Temp 98.2 F 10/22/24 08:07 Pulse 90 10/22/24 09:35 Resp 20 10/22/24 09:35 BP 137/78 10/22/24 09:35 Pulse Ox 96 10/22/24 09:35 O2 Del Method Room Air 10/22/24 08:07 Course Vital Signs Vital signs: Vital Signs Temperature 98.2 F 10/22/24 08:07 Pulse Rate 99 H 10/22/24 08:07 Respiratory Rate 20 10/22/24 08:07 Blood Pressure 147/99 H 10/22/24 08:07 Pulse Oximetry 98 10/22/24 08:07 Oxygen Delivery Method Room Air 10/22/24 08:07 Temperature 98.2 F 10/22/24 08:07 Pulse Rate 90 10/22/24 09:35 Respiratory Rate 20 10/22/24 09:35 Blood Pressure 137/78 10/22/24 09:35 Pulse Oximetry 96 10/22/24 09:35 Oxygen Delivery Method Room Air 10/22/24 08:07 Medical Decision Making MDM Narrative Medical decision making narrative: Patient has mild diverticulitis to the distal descending colon. Patient also has hematuria with no obvious source. Patient does not have any significant elevated white blood cell count, patient's lab work shows no other significant findings. Patient was given initially Dilaudid and then a [place] in the ER. Patient was given Toradol prior to arrival along with fentanyl. Patient was given Zofran. Patient was educated at length on diverticulosis and diverticulitis with patient and . Pictures were drawn, they were given copies of their CAT scan from July and today. Patient also had a lengthy talk about hematuria and the need for follow-up. Patient is a smoker. We discussed bladder cancer as a possible differential diagnosis, she understands to follow-up with PCP and be referred to GI specialist in diesel engine mechanic as indicated or urologist. Patient was given work note. Patient will have clear liquids for the next several days, patient will then follow-up with PCP for referrals as needed. Patient has a nonsurgical abdomen at discharge. Repeat of patient's abdominal exam shows mild to moderate left upper quadrant tenderness palpation, the rest of her abdomen has diffuse mild tenderness palpation, no peritoneal signs, no guarding, rebound, rigidity, no flank pain, no surgical signs at discharge, patient admits that her abdomen feels much better now than it did when she initially came in. Lab Data Labs: Lab Results 10/22/24 10/22/24 Range/Units 08:24 09:34 WBC 11.2 H (4.0-11.0) 10^3/uL RBC 3.87 L (4.20-5.40) 10^6/uL Hgb 13.4 (12.0-16.0) g/dL Hct 38.8 (36.0-48.0) % MCV 100.3 H (81.0-99.0) fL MCH 34.6 H (26.7-34.0) pg MCHC 34.5 (29.9-35.2) g/dL RDW 13.9 (11.0-15.0) % Plt Count 267 (150-450) 10^3/uL MPV 10.2 (9.5-13.5) fL Neut % (Auto) 75.8 H (43.0-75.0) % Lymph % (Auto) 13.2 L (20.5-60.0) % [place] % (Auto) 7.8 (1.7-12.0) % Eos % (Auto) 2.3 (0.9-7.0) % Baso % (Auto) 0.4 (0.2-2.0) % Neut # (Auto) 8.5 H (1.4-6.5) 10^3/uL Lymph # (Auto) 1.5 (1.2-3.8) 10^3/uL [place] # (Auto) 0.9 H (0.3-0.8) 10^3/uL Eos # (Auto) 0.3 (0.0-0.7) 10^3/uL Baso # (Auto) 0.0 (0.0-0.1) 10^3/uL Abs Immat Gran (auto) 0.06 H (0.00-0.03) 10^3/uL Imm/Tot Granulo (auto) 0.5 (0.0-0.5) % Sodium 140 (136-145) mmol/L Potassium 4.1 (3.5-5.1) mmol/L Chloride 107 (98-107) mmol/L Carbon Dioxide 22.4 (21.0-32.0) mmol/L Anion Gap 14.7 BUN 9.0 (7.0-18.0) mg/dL Creatinine 1.08 H (0.55-1.02) mg/dL Est GFR ( Amer) >60 (>=60 mL/min/1.73m^2) Est GFR (Non-Af Amer) 55 L (>=60 mL/min/1.73m^2) BUN/Creatinine Ratio 8.3 Glucose 96 (74-106) mg/dL Lactate 0.6 (0.4-2.0) mmol/L Calcium 8.2 L (8.5-10.1) mg/dL Total Bilirubin 0.5 (0.2-1.0) mg/dL AST 15 (15-37) U/L ALT 24 (14-59) U/L Alkaline Phosphatase 78 (46-116) U/L Total Protein 5.8 L (6.4-8.2) g/dL Albumin 3.0 L (3.4-5.0) g/dL Globulin 2.8 g/dL Albumin/Globulin Ratio 1.1 Lipase 21.0 (16.0-77.0) U/L Urine Color Lt. red (YELLOW) Urine Clarity Sl cloudy (CLEAR) Urine pH 6.0 (5.0-9.0) Ur Specific [place] 1.015 (1.005-1.025) Urine Protein Trace (NEG/TRACE) mg/dL Urine Glucose (UA) Negative (NEGATIVE) mg/dL Urine Ketones Negative (NEGATIVE) mg/dL Urine Occult Blood Large A (NEGATIVE) Urine Nitrite Negative (NEGATIVE) Urine Bilirubin Negative (NEGATIVE) Urine Urobilinogen 0.2 (0.2-1.0) EU/dL Ur Leukocyte Esterase Negative (NEGATIVE) Urine RBC >100 A (0-2) #/HPF Urine WBC None seen (NONE SEEN) #/HPF Ur Squamous Epith Cells Rare (NONE/RARE) #/LPF Urine Crystals None seen (None Seen) #/HPF Urine Bacteria Trace A (NONE SEEN) #/HPF Urine Casts None seen (NONE SEEN) #/LPF Urine Mucus Trace A (NONE SEEN) Ur Culture Indicated? No Urine HCG, Qual Negative (NEGATIVE) Discharge Plan Discharge Stand Alone Forms: Work/School Release Chief Complaint: Abdominal Pain Clinical Impression: Diverticulitis, Abdominal pain, Hematuria, Vomiting Patient Disposition: Home, Self-Care Time of Disposition Decision: 10:31 Condition: Fair Prescriptions / Home Meds: New amoxicillin-pot clavulanate 875-125 mg tablet 1 tab PO Q12H 10 Days Qty: 20 0RF dicyclomine 20 mg tablet 20 mg PO TID PRN (Reason: abdominal pain) Qty: 7 0RF ondansetron 4 mg tablet,disintegrating 4 mg PO Q4H PRN (Reason: nausea and vomiting) 3 Days Qty: 6 0RF hydrocodone-acetaminophen 5-325 mg tablet 1 tab PO Q4H PRN (Reason: pain) Qty: 10 0RF No Action fluoxetine 40 mg capsule 40 mg PO DAILY trazodone 50 mg tablet 50 mg PO DAILY alprazolam 0.25 mg tablet 0.25 mg PO DAILY Print Language: Estonian Instructions: Diverticulitis (ED), Acute Nausea and Vomiting (ED), Hematuria (ED), Abdominal Pain (ED) Additional Instructions: Take Augmentin every day until the antibiotic is finished. Use clear liquids for the next 2 or 3 days, Gatorade, Powerade, water. Start soft diet 1 to 2 days after [place] on either October 25 or October 26. Use nausea or pain medication as needed. We discussed the side effect of narcotics causing constipation. You have hematuria, blood in your urine with no obvious cause. You need to follow-up with your PCP and be referred to diesel engine mechanic if you continue to have painless hematuria. You will need to have a colonoscopy in the next 3 to 6 months as well or at least follow-up with a GI physician for diverticulosis/diverticulitis. Use your PCP for guidelines to be referred to GI specialist for colonoscopy when indicated. Referrals: Ainsley Sellers NP [Primary Care Provider] - 1 week
[2024-10-22 08:50] LABS: Alanine Aminotransferase 24 U/L (14-59); Albumin Globulin Ratio 1.1; Alkaline Phosphatase 78 U/L (46-116); Anion Gap 14.7; Aspartate Amino Transferase 15 U/L (15-37); BUN Creatinine Ratio 8.3; Bilirubin Total 0.5 mg/dL (0.2-1.0); Calcium 8.2 mg/dL (8.5-10.1); Carbon Dioxide 22.4 mmol/L (21.0-32.0); Chloride 107 mmol/L (98-107); Estimated GFR (African America >60 (>=60 mL/min/1.73m^2); Estimated GFR (Non-African Ame 55 (>=60 mL/min/1.73m^2); Globulin 2.8 g/dL; Glucose 96 mg/dL (74-106); Potassium 4.1 mmol/L (3.5-5.1); Sodium 140 mmol/L (136-145); Total Protein 5.8 g/dL (6.4-8.2)
[2024-10-22 08:59] LABS: Lactate/Lactic Acid 0.6 mmol/L (0.4-2.0)
[2024-10-22] MEDS: ONDANSETRON PF 4 MG/2 ML VIAL IV (09:02)
[2024-10-22 09:35] VITALS: BP 137/78; PULSE 90; O2SAT 96
[2024-10-22 09:44] LABS: Bilirubin Urine NEGATIVE (NEGATIVE); Blood Urine LARGE (NEGATIVE); Clarity Urine SL CLOUDY (CLEAR); Color Urine LT. RED (YELLOW); Glucose Urine UA NEGATIVE (NEGATIVE); Ketones Urine NEGATIVE (NEGATIVE); Leukocyte Esterase Urine NEGATIVE (NEGATIVE); Nitrite Urine NEGATIVE (NEGATIVE); Protein Urine TRACE mg/dL (NEG/TRACE); Specific Gravity Urine 1.015 (1.005-1.025); Urobilinogen Urine 0.2 EU/dL (0.2-1.0)
[2024-10-22 09:52] LABS: Bacteria Urine TRACE #/HPF (NONE SEEN); Cast Seen? NONE SEEN #/LPF (NONE SEEN); Crystals Seen? None Seen #/HPF (None Seen); Mucus Urine TRACE (NONE SEEN); RBC Urine >100 #/HPF (0-2); Squamous Epithelial Cell Urine RARE #/LPF (NONE/RARE); Urine Culture Indicated NO; WBC Urine NONE SEEN #/HPF (NONE SEEN)
[2024-10-22] MEDS: HYDROCODONE/ACET 5-325 MG TABLET 1 TAB PO (10:07)
== END 2024-10-22 10:53 | disposition home or self-care (01) ==
PROVIDERS: Emergency Provider Emergency Medicine; PCP Nurse Practitioner
DX: K57.32 Diverticulitis of large intestine without perforation or abscess without bleeding (principal); R31.9 Hematuria, unspecified; R10.12 Left upper quadrant pain; R11.10 Vomiting, unspecified; Z87.440 Personal history of urinary (tract) infections; Z90.49 Acquired absence of other specified parts of digestive tract; F17.200 Nicotine dependence, unspecified, uncomplicated; N28.9 Disorder of kidney and ureter, unspecified
CPT/HCPCS: 36415; 74176; 80053; 81001; 83605; 83690; 84703; 85025; 96372; 96374; 96375; 99285; J0500; J1171; J2405

== ENCOUNTER 2024-11-07 07:32 | Outpatient (OUT) | payer OTHER, SELFPAY ==
--- NOTE | 2024-11-07 | MM_ITS ---
Patient Name: ROSELIA LO MR#: [id number] : 1980 Exam Date: 11/07/2024 Ordering Doctor: FADI Sellers CNP RADIOLOGY REPORT PROCEDURE: MM TOMOSYNTHESIS SCREENING BI COMPARISON: MM TOMOSYNTHESIS SCREENING BI, 03/30/2022. MM TOMOSYNTHESIS SCREENING BI, 04/15/2023. INDICATIONS: SCREENING FOR BREAST MALIGNANCY Calculator Name [facility] Breast Cancer Risk Assessment Tool 5 Year Breast Cancer Risk 0.70% Lifetime Breast Cancer Risk 8.70% Personal Breast Cancer No Personal Ovarian Cancer No Treatments None Family Cancers None LOCATION: [facility] BREAST COMPOSITION: There are scattered areas of fibroglandular density. FINDINGS: DIAGNOSTIC CATEGORY 2--BENIGN FINDING. NO CHANGE FROM COMPARISON. Scattered benign-appearing lymph nodes are present. RIGHT BREAST: No significant suspicious finding. LEFT BREAST: No significant suspicious finding. RECOMMENDATIONS: ROUTINE MAMMOGRAM AND CLINICAL EVALUATION IN 12 MONTHS. PLEASE NOTE: A NORMAL MAMMOGRAM DOES NOT EXCLUDE THE POSSIBILITY OF BREAST CANCER. A CLINICALLY SUSPICIOUS PALPABLE LUMP SHOULD BE BIOPSIED. Dictated by: Rodolfo Sanford MD on 11/07/2024 at 09:23 Approved by: Rodolfo Sanford MD on 11/07/2024 at 09:25
== END 2024-11-07 07:33 | disposition home or self-care (01) ==
LOC: MAMMO 07:32
PROVIDERS: PCP Nurse Practitioner; Visit Provider Nurse Practitioner
DX: Z12.31 Encounter for screening mammogram for malignant neoplasm of breast (principal)
CPT/HCPCS: 77063; 77067

== ENCOUNTER 2025-02-08 13:21 | Outpatient (OUT) | payer OTHER, SELFPAY ==
--- OUTSIDE RECORDS SUMMARY | 2025-02-08 13:29 | XMS_ITS | CCD ---
Author Organization [facility] CliniSyin Care Team Providers Care Paper Cutter Operator Name Role Phone UNKNOWN, PHYSICIAN Referring Unavailable UNKNOWN, PHYSICIAN Primary Care Unavailable EBRAHEIM, REZA Attending Unavailable EBRAHEIM, REZA Admitting Unavailable AICHHOLZ, SYSTEMS APPLICATIONS PROGRAMMING LEAD AINSLEY Admitting Unavailable SVETA, DR TESS Eaton Consulting Unavailable AICHHOLZ, SYSTEMS APPLICATIONS PROGRAMMING LEAD AINSLEY Attending Unavailable AICHHOLZ, SYSTEMS APPLICATIONS PROGRAMMING LEAD AINSLEY Primary Care Unavailable AICHHOLZ, SYSTEMS APPLICATIONS PROGRAMMING LEAD AINSLEY Consulting Unavailable AICHHOLZ, SYSTEMS APPLICATIONS PROGRAMMING LEAD AINSLEY Primary Care Unavailable AICHHOLZ, SYSTEMS APPLICATIONS PROGRAMMING LEAD AINSLEY Admitting Unavailable AICHHOLZ, SYSTEMS APPLICATIONS PROGRAMMING LEAD AINSLEY Attending Unavailable AICHHOLZ, SYSTEMS APPLICATIONS PROGRAMMING LEAD AINSLEY Primary Care Unavailable HELIO, DR RANDOLPH Mehta Admitting Unavailable HELIO, DR RANDOLPH Mehta Attending Unavailable HELIO, DR RANDOLPH Mehta Consulting Unavailable HELIO, DR RANDOLPH Mehta Admitting Unavailable YOLANDA, DR NEVAREZ Primary Care Unavailable HELIO, DR RANDOLPH Mehta Attending Unavailable HELIO, DR RANDOLPH Mehta Consulting Unavailable AICHHOLZ, SYSTEMS APPLICATIONS PROGRAMMING LEAD AINSLEY Primary Care Unavailable AICHHOLZ, SYSTEMS APPLICATIONS PROGRAMMING LEAD AINSLEY Admitting Unavailable AICHHOLZ, SYSTEMS APPLICATIONS PROGRAMMING LEAD AINSLEY Attending Unavailable AICHHOLZ, SYSTEMS APPLICATIONS PROGRAMMING LEAD AINSLEY Consulting Unavailable Aicha Shankar Unavailable Ainsley Sellers Primary Care Provider MD Reggie Summers Attending Provider Quentin Dawn MD Primary Care Provider Aicagustin MASTER FIRE CONTROL TECHNICIAN, Ainsley Unavailable AINSLEY SELLERS Attending Unavailable SWETA BRIGGS Attending Unavailable SWETA BRIGGS Referring Unavailable AINSLEY SELLERS Attending Unavailable RENA SMITH Attending Unavailable REGGIE SUMMERS Referring Unavailable AINSLEY SELLERS Attending Unavailable RENA SMITH Attending Unavailable REGGIE SUMMERS Referring Unavailable ODALIS DUARTE Attending Unavailable RGEGIE SUMMERS Referring Unavailable STEPAN NGO Attending Unavailable SUMMERSREGGIE Referring Unavailable ODALIS DUARTE Attending Unavailable SUMMERS, REGGIE Referring Unavailable AICHHOLZ, AINSLEY Attending Unavailable AICHHOLZ, AINSLEY Attending Unavailable AICHHOLZ, AINSLEY Attending Unavailable AICHHOLZ, AINSLEY Attending Unavailable AICHHOLZ, AINSLEY Attending Unavailable AICHHOLZ, AINSLEY Attending Unavailable AICHHOLZ, AINSLEY Attending Unavailable AICHA CASEY Referring Unavail able AICHHOLZ, AINSLEY J Primary Care Unavailable AICHHOLZ, AINSLEY J Referring Unavailable AICHHOLZ, AINSLEY J Primary Care Unavailable AICHA CASEY Attending Unavailable AICHHOLZ, AINSLEY J Referring Unavailable AICHHOLZ, AINSLEY J Primary Care Unavailable AICHHOLZ, AINSLEY J Referring Unavailable AICHHOLZ, AINSLEY J Primary Care Unavailable NEISHA LANEIR Attending Unavailable AICHHOLZ, AINSLEY J Referring Unavailable AICHHOLZ, AINSLEY J Primary Care Unavailable Aichholz, Ainsley J Primary Care Provider Sabrina BRADFORD, Imad Attending Provider [phone] Verito Ainsley J Primary Care Provider [phone] Sabrina BRADFORD, Imnatasha Attending Provider Ivonne Joaquin APRN Attending Provider Aicagustin, Ainsley J Primary Care Unavailable Asaad, Imad Attending Unavailable Asaad, Imad Admitting Unavailable Ivonne Joaquin Admitting Unavailable Aichholz, Ainsley J Primary Care Unavailable Ivonne Joaquin Attending Unavailable Aichholz, Ainsley J Primary Care Unavailable Reggie Summers Attending Unavailable Reggie Summers Admitting Unavailable Aichholz, Ainsley J Primary Care Unavailable Reggie Summers Attending Unavailable Reggie Summesr Admitting Unavailable Allergies Allergy Classification Reported Allergen(s) Allergy Type Date of Onset Reaction(s) Facility diphenhydrAMINE (1 source) diphenhydrAMINE; Translations: [BENADRYL] Drug Allergy 08-19-20 10 [facility] Repository (9 sources) Codeine; Translations: [CODEINE] Drug Allergy 05-30-20 13 Seizures [facility] Repository (1 source) diphenhydrAMINE Drug Allergy 05-30-20 13 [facility] Repository (18 sources) Codeine Drug Allergy 10-05-20 23 Hives, Hallucinations [facility] Other (8 sources) diphenhydrAMINE Drug Allergy 02-24-20 24 Hives [facility] (16 sources) diphenhydrAMINE Drug Allergy 10-05-20 23 Rash, Hallucinations [facility] (2 sources) diphenhydrAMINE; Translations: [DIPHENHYDRAMINE HCL] Drug Allergy 05-06-20 17 [facility] Repository (1 source) Codeine Drug Allergy 01-12-20 25 [facility] Repository (1 source) diphenhydrAMINE Drug Allergy 01-12-20 [facility] Repository Medications Current Medications Medication Drug Class(es) Dates Sig (Normalized) Sig (Original) acetaminophen 500 mg oral tablet (4 sources) Start: 04-16-2024 take 1 tablet by mouth every six hours as needed for pain Acetaminophen (Tylenol Extra Strength) 500 mg tablet Active 500 MG PO Every 6 hours as needed for pain April 16, 2024 12:00am [id number] 200 actuat albuterol 0.09 mg/actuat metered dose inhaler (6 sources) beta2-Adrenergic Agonist take 2 puff(s) by inhalation every six hours for wheezing ProAir HFA 108 (90 Base) MCG/ACT inhaler Inhale 2 puffs every 6 (six) hours if needed for shortness of breath or wheezing Active ALPRAZolam 0.25 mg oral tablet (20 sources) Benzodiazepine Start: 01-01-2024 End: 12-14-2024 take 1 tablet by mouth once daily as needed for anxiety Alprazolam 0.25 mg tablet Active 0.25 MG PO Daily as needed for anxiety January 01, 2024 1:00am Start: 01-01-2024 Alprazolam Act lali MG PO January 01, 2024 1:00am ALPRAZolam Activ e amoxicillin 875 mg / clavulanate 125 mg oral tablet (5 sources) Penicillin-class Antibacterial End: 11-15-2024 take 1 tablet by mouth in the morning amoxicillin-clavulanate (Augmentin) 875-125 MG tablet Take 875 mg by mouth in the morning and 875 mg before bedtime. 11/15/2024 Discontinued (Therapy completed) ciprofloxacin 500 mg oral tablet (4 sources) Quinolone Antimicrobial Start: 11-01-2024 End: 11-15-2024 take 1 tablet by mouth in the morning ciprofloxacin (Cipro) 500 MG tablet Indications: Diverticulitis Take 1 tablet (500 mg) by mouth in the morning and 1 tablet (500 mg) before bedtime. Do all this for 10 days. 20 tablet 11/01/2024 11/15/2024 Discontinued (Therapy completed) dexamethasone 4 mg oral tablet (1 source) Corticosteroid Start: 12-24-2022 take 1 tablet by mouth every twenty-fo ur hours Dexamethasone 4 MG 1 tablet Orally Once a day for 5 days Dec, Active dextromethorphan hydrobromide 1.5 mg/ml / pyrilamine maleate 1.5 mg/ml oral solution (1 source) Uncompetitive A-rwwrqv-S-aspartat e Receptor Antagonist, Sigma-1 Agonist Start: 12-24-2022 [place] DM 7.5-7.5 MG/5ML 10 ml Orally every 6-8 hours as needed for 8 days Dec, Active dicyclomine hydrochloride 20 mg oral tablet (7 sources) Anticholinergic Start: 12-11-2024 End: 12-16-2024 take 1 tablet by mouth every eight hours dicyclomine (Bentyl) 20 MG tablet Indications: Generalized abdominal pain Take 1 tablet (20 mg) by mouth every 8 (eight) hours if needed (abdominal pain or cramps) for up to 5 days 15 tablet 12/11/2024 12/16/2024 Active Start: 10-22-2024 End: 11-15-2024 take 1 tablet by mouth three times daily as needed dicyclomine (Bentyl) 20 MG tablet Indications: Diverticulitis Take 1 tablet (20 mg) by mouth 3 (three) times a day as needed (abd cramping) for up to 10 days 30 tablet 11/01/2024 11/15/2024 Active FLUoxetine 40 mg oral capsule (20 sources) Serotonin Reuptake Inhibitor Start: 09-28-2024 take 1 capsule by mouth once daily FLUoxetine (PROzac) 40 MG capsule Take 40 mg by mouth Daily 09/28/2024 Active Start: 06-11-2024 End: 07-25-2024 take 1 capsule by mouth once daily FLUoxetine (PROzac) 40 MG capsule Indications: Anxiety Take 1 capsule (40 mg) by mouth Daily 30 capsule 2 06/11/2024 07/25/2024 Discontinued (Therapy completed) Start: 01-01-2024 take 2 capsules by m outh once daily Fluoxetine 20 mg capsule Active 40 MG PO Daily January 01, 2024 1:00am Start: 01-01-2024 take 40 mg by mouth once daily Fluoxetine Active 40 MG PO Daily January 01, 2024 1:00am fluticasone propionate 0.05 mg/actuat metered dose nasal spray (1 source) Corticosteroid Start: 12-24-2022 take 1 spray(s) nasal route once daily Fluticasone Propionate 50 MCG/ACT 1 spray in each nostril Nasally Once a day for 21 days Dec, Active folic acid 1 mg oral tablet (12 sources) Start: 10-07-2023 End: 10-06-2024 take 1 tablet by mouth once daily Folic Acid 1 mg tablet Active 1 MG PO Daily April 16, 2024 12:00am metroNIDAZOLE 500 mg oral tablet (4 sources) Nitroimidazole Antimicrobial Start: 11-01-2024 End: 11-15-2024 take 1 tablet by mouth every eight hours metroNIDAZOLE (Flagyl) 500 MG tablet Indications: Diverticulitis Take 1 tablet (500 mg) by mouth every 8 (eight) hours for 10 days No alcohol use while taking 30 tablet 11/01/2024 11/15/2024 Discontinued (Therapy completed) naproxen 500 mg oral tablet (8 sources) Nonsteroidal Anti-inflammatory Drug Start: 07-17-2024 End: 08-01-2024 take 1 tablet by mouth once naproxen [...] with food. 30 tablet 06/26/2024 07/17/2024 Discontinued OLANZapine 2.5 mg oral tablet (5 sources) Atypical Antipsychotic Start: 11-15-2024 End: 12-15-2024 take 1 tablet by mouth once daily at bedtime Olanzapine 2.5 mg tablet Active 2.5 MG PO Daily at bedtime December 05, 2024 1:00am ondansetron 4 mg oral tablet (3 sources) [...] MOUTH DAILY Oral for 90 Days Active Sutab 1044-754-717 MG tablet (3 sources) Start: 11-11-2024 Sutab 7216-987-218 MG tablet TAKE 12 TABLETS BY MOUTH TWICE DAILY FOR 1 DAY. TAKE FIRST DOSE AT 3 PM THE DAY BEFORE COLONOSCOPY AND SECOND DOSE AT 9 PM EVENING BEFORE 11/11/2024 Active traZODone hydrochloride 50 mg oral tablet (20 sources) Serotonin Reuptake Inhibitor Start: 12-05-2024 take 1 tablet by mouth once daily at bedtime Trazodone 50 mg tablet Active 50 MG PO Daily at bedtime December 05, 2024 1:00am Start: 01-01-2024 End: 06-28-2024 take 1 tablet by mouth once daily at bedtime as needed for sleep Trazodone 50 mg tablet Discontinued 50 MG PO Daily at bedtime as needed for sleep January 01, 2024 1:00am June 28, 2024 1:12pm Start: 01-01-2024 Trazodone Acti ve MG PO January 01, 2024 1:00am Completed/Discontinued Medications Medication Drug Class(es) Dates Sig (Normalized) Sig (Original) baclofen 10 mg oral tablet (7 sources) gamma-Aminobutyri c Acid-ergic Agonist Start: 07-17-2024 End: 07-25-2024 take 0.5-1 tablets by mouth twice daily as needed baclofen (Lioresal) 10 MG tablet TAKE 1/2 TO 1 TABLET BY MOUTH TWICE DAILY NEEDED 07/17/2024 07/25/2024 Discontinued (Therapy completed) Start: 04-16-2024 End: 05-28-2024 take 1 tablet by mouth twice daily as needed for muscle spasms Baclofen 10 mg tablet Discontinued 10 MG PO Twice daily as needed for muscle spasm April 16, 2024 12:00am May 28, 2024 11:39am cephalexin 500 mg oral capsule (3 sources) Cephalosporin Antibacterial Start: 05-28-2024 End: 06-28-2024 take 1 capsule by mouth three times daily Cephalexin 500 mg capsule Discontinued 500 MG PO Three times daily May 28, 2024 12:00am June 28, 2024 1:11pm cyclobenzaprine hydrochloride 10 mg oral tablet (9 sources) Muscle Relaxant Start: 05-28-2024 End: 06-28-2024 take 1 tablet by mouth three times daily as needed for muscle spasms Cyclobenzaprine 10 mg tablet Discontinued 10 MG PO Three times daily as needed for back spasms May 28, 2024 12:00am June 28, 2024 1:11pm Start: 01-01-2024 End: 04-16-2024 take 1 tablet by mouth three times daily as needed for muscle spasms Cyclobenzaprine 10 mg tablet Discontinued 10 MG PO Three times daily as needed for muscle spasm January 01, 2024 1:00am April 16, 2024 2:05pm gabapentin 300 mg oral capsule (20 sources) Anti-epileptic Agent Start: 02-24-2024 End: 12-05-2024 take 1 capsule by mouth three times daily Gabapentin 300 mg capsule Discontinued 300 MG PO Three times daily February 24, 2024 9:28am December 05, 2024 12:04pm Start: 01-01-2024 End: 02-24-2024 take 1 capsule by mouth twice daily Gabapentin 300 mg capsule Discontinued 300 MG PO Twice daily January 01, 2024 1:00am February 24, 2024 9:28am oxyCODONE hydrochloride 5 mg oral tablet (3 sources) Opioid Agonist Start: 05-28-2024 End: 06-28-2024 take 5-10 mg by mouth every six hours as needed for pain Oxycodone 5 mg tablet Discontinued 5 - 10 MG PO Q6H as needed for Pain 40 8 May 28, 2024 June 28, 2024 1:12pm predniSONE 10 mg oral tablet (9 sources) Start: 05-28-2024 End: 06-28-2024 Prednisone 10 mg tablets,dose pack Discontinued 1 dose pk PO per package directions May 28, 2024 12:00am June 28, 2024 1:12pm take 4 tabs for 3 days then take 3 tabs for 3 days then take 2 tabs for 3 days then take 1 tab for 3 days Start: 05-28-2024 Prednisone Act lali 1 dose pk PO per package directions May 28, 2024 12:00am take 4 tabs for 3 days then take 3 tabs for 3 days then take 2 tabs for 3 days then take 1 tab for 3 days Start: 01-01-2024 End: 04-16-2024 take 1 tablet by mouth twice daily Prednisone 20 mg tablet Discontinued 20 MG PO Twice daily 10 5 January 01, 2024 1:00am April 16, 2024 2:04pm Start this prescription on January 01. Sod Sulf-Pot Chloride-Mag [place] lf (Sutab) 1.479-0.188- 0.225 gram tablet (2 sources) Start: 11-06-2024 End: 12-19-2024 Sod Sulf-Pot Chloride-Mag [place] lf (Sutab) 1.479-0.188- 0.225 gram tablet Discontinued 12 TAB PO Twice daily 23 11November 06, 2024 1:00am December 19, 2024 12:12pm take first dose at 3pm the day before colonoscopy; take the second dose at 9pm evening before colonoscopy. Start: 11-06-2024 End: 12-19-2024 Sod Sulf-Pot Chloride-Mag [place] lf (Sutab) 1.479-0.188- 0.225 gram tablet Discontinued 12 TAB PO Twice daily 23 11November 06, 2024 12:00am December 19, 2024 11:12am take first dose at 3pm the day before colonoscopy; take the second dose at 9pm evening before colonoscopy. Problems Active Problems Problem Classification Problem Date Documented Date Episodic/Chronic Abdominal pain (5 sources) Unspecified abdominal pain; Translations: [Generalized abdominal pain] Onset: 04-01-2022 Episodic Anxiety disorders (20 sources) Anxiety; Translations: [Anxiety disorder, unspecified] Onset: 10-06-2023 07-17-2024 Chronic Figueroa (2 sources) Epidermal burn of left wrist; Translations: [Burn of first degree of left wrist, initial encounter] 01-11-2025 Episodic Chronic kidney disease (20 sources) Chronic kidney disease stage 3A ; Translations: [Stage 3a chronic kidney disease (CKD)] Onset: 10-06-2023 Resolved: 04-26-2024 10-06-2023 Chronic Diverticulosis and diverticulitis (20 sources) Diverticulitis; Translations: [Diverticulitis of intestine, part unspecified, without perforation or abscess without bleeding] Onset: 03-29-2024 04-26-2024 Chronic Immunizations and screening for infectious disease (2 sources) Encounter for screening for infections with a predominantly sexual mode of transmission; Translations: [Encounter for screening for infections with a predominantly sexual mode of transmission] Onset: 11-23-2024 Episodic Mood disorders (5 sources) Moderate major depression, single episode; Translations: [Major depressive disorder, single episode, moderate] Onset: 11-15-2024 11-15-2024 Chronic Nausea and vomiting (1 source) Nausea Episodic Osteoarthritis (16 sources) Osteoarthritis of hip; Translations: [Osteoarthritis of hip, unspecified] Onset: 10-06-2023 10-06-2023 Chronic Other connective tissue disease (1 source) Hand pain; Translations: [Pain in left hand] 01-11-2025 Episodic Other female genital disorders (1 source) Other specified abnormal uterine and vaginal bleeding; Translations: [Other specified abnormal uterine and vaginal bleeding] Onset: 12-10-2024 Chronic Other nervous system disorders (16 sources) Polyneuropathy; Translations: [Polyneuropathy, unspecified] Onset: 10-06-2023 10-06-2023 Chronic Other non-traumatic joint disorders (1 source) Pain in left wrist; Translations: [Pain in left wrist] Onset: 01-11-2025 Episodic Other nutritional; endocrine; and metabolic disorders (20 sources) Body mass index 30+ - obesity; Translations: [Obesity, unspecified] Onset: 10-06-2023 10-06-2023 Chronic Other skin disorders (1 source) Rash and other nonspecific skin eruption; Translations: [RASH OTH NONSPECIFIC SKIN ERUPTION] Onset: 03-24-2022 Episodic Other upper respiratory infections (8 sources) Acute pharyngitis, unspecified; Translations: [Sore throat symptom] Onset: 10-17-2021 Resolved: 06-01-2022 Episodic Ovarian cyst (10 sources) Cyst of right ovary; Translations: [Unspecified ovarian cyst, right side] Onset: 11-01-2024 11-01-2024 Episodic Residual codes; unclassified (1 source) Other specified postprocedural states; Translations: [Other specified postprocedural states] Onset: 11-23-2024 Episodic Screening and history of mental health and substance abuse codes (1 source) Encounter for screening for depression; Translations: [Encounter for screening for depression] Onset: 11-23-2024 Episodic Spondylosis; intervertebral disc disorders; other back problems (4 sources) Other intervertebral disc degeneration, lumbosacral region; Translations: [OTH IV DISC DEGEN LUMBOSACRAL RGN] Onset: 11-24-2021 Chronic Substance-related disorders (2 sources) Nicotine dependence, cigarettes, uncomplicated; Translations: [Nicotine dependence, unspecified, uncomplicated] Onset: 02-01-2022 Chronic Superficial injury; contusion (2 sources) Contusion of left wrist; Translations: [Contusion of left wrist, initial encounter] 01-11-2025 Episodic Unclassified (1 source) LOW BACK PAIN, UNSPECIFIED; Translations: [LOW BACK PAIN, UNSPECIFIED] Onset: 02-01-2022 Unclassified (1 source) Consult Onset: 12-10-2024 Unclassified (1 source) Gynecologic Exam Onset: 11-23-2024 Past or Other Problems Problem Classification Problem Date Documented Date Episodic/Chronic Acquired foot deformities (16 sources) Bunion; Translations: [Bunion of left foot] Onset: 10-06-2023 10-06-2023 Episodic Allergic reactions (20 sources) Erythema ab igne [dermatitis ab igne]; Translations: [Erythema ab igne] Onset: 03-18-2022 Resolved: 04-26-2024 Episodic Chronic obstructive pulmonary disease and bronchiectasis (1 source) Bronchitis, not specified as acute or chronic; Translations: [BRONCHITIS NOT SPEC ACUTE/CHRON] Onset: 10-20-2021 Episodic Contraceptive and procreative management (1 source) Contraception Onset: 12-22-2023 Episodic Genitourinary symptoms and ill-defined conditions (12 sources) Acute retention of urine ; Translations: [Other retention of urine] Onset: 07-25-2024 07-25-2024 Episodic Mood disorders (3 sources) Mood disorders Onset: 11-15-2024 11-15-2024 Other aftercare (1 source) Other nursing home (current) drug therapy; Translations: [OTH SHELTER CURRENT DRUG THERAPY] Onset: 02-01-2022 Episodic Other connective tissue disease (4 sources) Pain in right leg; Translations: [PAIN IN RIGHT LEG] Onset: 11-18-2021 Episodic Other connective tissue disease (1 source) Pain in left leg; Translations: [PAIN IN LEFT LEG] Onset: 11-20-2021 Episodic Other connective tissue disease (16 sources) Pain in bilateral legs; Translations: [Pain in right leg] Onset: 10-06-2023 10-06-2023 Episodic Other connective tissue disease (16 sources) Radial styloid tenosynovitis; Translations: [Radial styloid tenosynovitis [de Quervain]] Onset: 10-06-2023 10-06-2023 Episodic Other lower respiratory disease (20 sources) Rib pain; Translations: [Pleurodynia] Onset: 06-26-2024 06-26-2024 Episodic Other non-traumatic joint disorders (16 sources) Pain in elbow; Translations: [Pain in right elbow] Onset: 10-06-2023 Resolved: 04-26-2024 04-26-2024 Episodic Other non-traumatic joint disorders (16 sources) Hip pain; Translations: [Pain in right hip] Onset: 01-12-2024 Resolved: 03-08-2024 03-08-2024 Episodic Other nutritional; endocrine; and metabolic disorders (16 sources) Body mass index 25-29 - overweight; Translations: [Overweight] Onset: 10-06-2023 Resolved: 03-08-2024 03-08-2024 Episodic Other screening for suspected conditions (not mental disorders or infectious disease) (20 sources) Patient encounter status; Translations: [Encounter for screening mammogram for malignant neoplasm of breast] Onset: 10-06-2023 Resolved: 04-26-2024 03-29-2024 Episodic Other skin disorders (16 sources) Eruption; Translations: [Rash and other nonspecific skin eruption] Onset: 10-06-2023 Resolved: 04-26-2024 04-26-2024 Episodic Otitis media and related conditions (16 sources) Acute suppurative otitis media without spontaneous rupture of ear drum; Translations: [Acute suppurative otitis media without spontaneous rupture of ear drum, bilateral] Onset: 10-06-2023 Resolved: 03-08-2024 03-08-2024 Episodic Residual codes; unclassified (16 sources) Flushing; Translations: [Flushing] Onset: 10-06-2023 10-06-2023 Episodic Residual codes; unclassified (16 sources) Insomnia; Translations: [Insomnia, unspecified] Onset: 10-06-2023 10-06-2023 Episodic Residual codes; unclassified (20 sources) Tobacco user; Translations: [Tobacco use] Onset: 10-06-2023 10-06-2023 Episodic Spondylosis; intervertebral disc disorders; other back problems (20 sources) Lumbar disc prolapse with radiculopathy; Translations: [Intervertebral disc disorders with radiculopathy, lumbar region] Onset: 10-06-2023 02-24-2024 Episodic Unclassified (1 source) Contact with and (suspected) exposure to covid-19 Z20.822 Viral infection (1 source) COVID-19 Onset: 06-01-2022 Resolved: 06-01-2022 Results Test Name Value Interpretation Reference Range Facility X-ray reportOrdered By: Daniel Phipps on 01-11-2025 Study report [facility] [place] [address] XRay Report Signed Patient: Roselia Lo MR #: [id number] : 1980 Acct:[id number] Age/Sex: 44 / F ADM Date: 5 Loc: XDUCLY Room: Type: [facility] CLI Attending Dr: Ivonne Joaquin APRN Copies to: Ivonne Joaquin APRN~ Ordering Provider: Ivonne Joaquin APRN Date of Service: 01/11/25 XR/XR wrist LT min 3V*: LEFT WRIST PAIN ([id number]) XR/XR hand LT min 3V*: LEFT HAND PAIN LEFT WRIST - 4 views, left hand 3 views CLINICAL HISTORY: Injury to left wrist now pain and swelling involving the left wrist and hand. COMPARISON: None FINDINGS: Left wrist: Mild soft tissue swelling. No acute bony process. Joint spaces appear maintained. No bony erosions. Left hand: Mild soft tissue swelling. No acute bony process. Joint spaces appear maintained. XR/XR wrist LT min 3V* IMPRESSION: MILD SOFT TISSUE SWELLING WITHOUT ACUTE BONY PROCESS. Impression dictated by: Alexander Phipps Jr. D.OLouie01/11/2025 2:03 PM Dictation Location: [place] [address] Transcribed By: [facility] 01/11/25 1403 Dictated By: Alexander Phipps Jr, DO 01/11/25 1402 Signed By: 01/11/25 140 [facility] XR hand LT min 3V*on 025 XR hand LT min 3V* [facility] [place] [address] XRay Report Signed Patient: Roselia Lo MR#: [id number] : 1980 Acct:[id number] Age/Sex: 44 / F ADM Date: 01/11/25 Loc: XDUCLY Room: Type: [facility] Attending Dr: Ivonne Joaquin APRN Copies to: Ivonne Joaquin APRN Ordering Provider: Ivonne Joaquin APRN Date of Service: 01/11/25 XR/XR wrist LT min 3V*: LEFT WRIST PAIN ([id number]) XR/XR hand LT min 3V*: LEFT HAND PAIN LEFT WRIST - 4 views, left hand 3 views CLINICAL HISTORY: Injury to left wrist now pain and swelling involving the left wrist and hand. COMPARISON: None FINDINGS: Left wrist: Mild soft tissue swelling. No acute bony process. Joint spaces appear maintained. No bony erosions. Left hand: Mild soft tissue swelling. No acute bony process. Joint spaces appear maintained. XR/XR wrist LT min 3V* IMPRESSION: MILD SOFT TISSUE SWELLING WITHOUT ACUTE BONY PROCESS. Impression dictated by: Alexander Phipps Jr. D.O.01/11/2025 2:03 PM Dictation Location: [id number] Transcribed By: [facility] 01/11/251402 Dictated By: Alexander Phipps Jr, DO 01/11/251401 Signed By: 01/11/251402 Normal [facility] Physician [facility] HCG ( test) Javon martinez Ql (U)Ordered By: Ángela Bennett on 12-19-2024 HCG ( test) Ql (U) Urine human chorionic gonadotropin (hCG) detection by immunoassay [facility] HCG,Urineon 12-19-2024 Beta HCG ( test) Ql (U) Negative Normal [facility] Physician [facility] Comment on above: Result Comment: PERF ORMED BY: [place] [address] PATHOLOGIST [employer] KARRIE SANTOS M.D. Performed By: #### U HCG #### [address] 12-19-2024 L Specimen: [id number] Received: 12/19/24 Status: CHRISTINA Fernandez Num: [id number] Spec Type: Surgical Subm Dr: Ángela Bennett MD Tissues: A Colon Biopsy (DESCENDING COLON POLYP) Procedures: HE/2, Gross/Micro L4 Age/ Patient Sex Location Account Attending Physician Roselia Lo 44/F [id number] Ángela Bennett MD SPEC NUM: [id number] RECD: 12/19/24 STATUS: CHRISTINA RAI NUM: [id number] DEEPA: 12/19/241231 [facility] DR: Ángela Bennett MD ENTERED: 12/19/24 [facility] DR: LUCY TYPE: Surgical DEPT: S ENTERED BY: [id number] RECV BY: [id number] ORDERED: HE/2, Gross/Micro L4 ORDERED: HE/2, Gross/Micro L4 Pathological Diagnosis Colon, descending, polypectomy: - Tubular adenoma. Clinical Information Diverticulitis, colon polyp. Gross Description Received in formalin labeled with the patients name, date of , and descending polyp is a castillo-smith, focally erythematous, friable, 0.3 cm in greatest dimension polypoid fragment. The specimen is entirely submitted in a single cassette. (1, ns, [id number]) Microscopic Description Microscopic examination is performed. CPT Codes 86705 Specimen: [id number] Received: 12/19/24 Status: CHRISTINA Fernandez Num: [id number] Spec Type: Surgical Subm Dr: Ángela Bennett MD Tissues: A Colon Biopsy (DESCENDING COLON POLYP) Procedures: HE/2, Gross/Micro L4 Patient: Roselia Lo [id number] (Continued) Signed (signatur e on file) Aayush Aly MD 12/20/24 6004 Normal [facility] CHLAMYDIA/GC PCR, FLon 11-23 CHLAMYDIA/GC PCR, FL CHLAMYDIA PCR, FL Negative (qualifier value) Chlamydia trachomatis not detected by nucleic acid amplification. This does not exclude the possibility of infection because results are dependent on adequate specimen collection. GONORRHOEAE PCR, FL Negative (qualifier value) Neisseria gonorrhoeae not detected by nucleic acid amplification. This does not exclude the possibility of infection because results are dependent on adequate specimen collection. Normal [facility] Comment on above: Performed By: #### C [facility] #### [facility] ([id number]) [address] [place] [address], [address] [place] [address] Cytologyon 11-23-2024 Cytology Normal [facility] Comment on above: Result Comment: [facility] [employer] [facility] Laboratory Medicine [address] [place] [address] Gynecologic Cytology Consultation Patient Name:ROSELIA LO:1980 (Age: 44)Gender:FTaken:11/23/2024Reported:12/06/2024Physician(s):Cherie Casey, C.N.P. ([phone])Copy To: Rec. #:[id number]: #[id number] Final Cytologic Interpretation ThinPrep Pap Test (Cervical): Satisfactory for evaluation. A transformation zone component is not identified via imaging-assisted review, using [employer] Thin Prep Imaging System, within 22 microscopic noe of view. NEGATIVE FOR INTRAEPITHELIAL LESION OR MALIGNANCY. [facility] [place]/12/06/2024 [place] [address], License number: [id number]. Electronically Signed Out By LINDA White(ASCP) Date of Last Menstrual Period: 11/19/24 Other Clinical Conditions: Z01.419 Bit Tripoler exam wo/abn findings Z12.4 Screening for malignant neoplasm of cervix Z11.3 Encntr screen for infections w sexl mode of transmiss Source of Specimen ThinPrep Pap Test (Cervical) Thin Prep Pap (NAVY SEAL) Fee Code(s): G0145 The Pap test is a screening test with an inherent, but low, probability of error. The Pap test is primarily effective for the diagnosis and prevention of squamous cell carcinoma. Regular screening is critical for prevention. ThinPrep liquid-based slides, which meet the Deputy Editor In Chief criteria for automated screening, have been screened by the ThinPrep Imaging System (as of 07/17/07) along with an additional manual rescreening by a manager erp and, if indicated, by a pathologist. HIGH RISK HPV W/GENOon 11-23 HPV 31+33+35+39+45+51+52+56 +58+59+66+68 DNA KAREN+probe Ql (Cvx) HPV SPECIMEN TYPE ThinPrep HPV 16 Negative (qualifier value) HPV 18 Negative (qualifier value) OTHER HIGH RISK HPV Positive (qualifier value) For the DNA of any or combination of the following HPV types: 31,33,35,45, 52,56,58,59,66 and 68. Normal [facility] Comment on above: Performed By: #### 7 1431-1 #### [facility] ([id number]) [address] [facility] [place] [address] [facility] ([id number]) [address] [facility], [address] [place] [address] HCG ( test) IA.rapi d Ql (U)Ordered By: Christos Ellsworth on 05-28-2024 HCG ( test) Ql (U) Negative [facility] HCG,Urineon 05-28-2024 Beta HCG ( test) Ql (U) Negative Normal [facility] Comment on above: Result Comment: PERF ORMED BY: [place] [address] PATHOLOGIST [employer] ARACELI HOLLEY M.D. Performed By: #### U HCG #### [address] XR lumbar spine 1Von 024 XR lumbar spine 1V [facility] [place] [address] XRay Report Signed Patient: Roselia Lo MR#: [id number] : 1980 Acct:[id number] Age/Sex: 43 / F ADM Date: 05/28/24 Loc: [place] Room: Type: [facility] Attending Dr: Reggie Summers MD Copies [...] Randolph Hoffman M.D.05/28/2024 1:40 PM Dictation Location: [place] [address] Transcribed By: [facility] 05/28/24 1340 Dictated By: Randolph Hoffman II, MD 05/28/24 1339 Signed By: 05/28/24 1340 Normal [facility] Automated basophil %Ordered By: Reggie Summers on 04-16-2024 Basophils/100 WBC (Bld) 0.3 % Normal . [facility] Comment on above: Performed By: #### B MP, CBC #### [address] Automated basophil countOrde red By: Reggie Summers on 04-16-2024 Basophils (Bld) [#/Vol] 0.0 10*3/uL Normal 0.0-0.2 [facility] Comment on above: Result Comment: PERF ORMED BY: [place] [address] PATHOLOGIST [employer] ARACELI HOLLEY M.D. Performed By: #### B MP, CBC #### [address] Automated blood monocyte cou ntOrdered By: Reggie Summers on 04-16-2024 Monocytes (Bld) [#/Vol] 0.7 10*3/uL Normal 0.0-0.8 [facility] Comment on above: Performed By: #### B MP, CBC #### [address] Automated eosinophil %Ordere d By: Reggie Summers on 04-16-2024 Eosinophils/100 WBC (Bld) 6.3 % Normal . [facility] Comment on above: Performed By: #### B MP, CBC #### [facility] [address] [place] [address] Automated eosinophil countOr dered By: Reggie Summers on 04-16-2024 Eosinophils (Bld) [#/Vol] 0.5 10*3/uL High 0.0-0.45 [facility] Comment on above: Performed By: #### B MP, CBC #### [address] Automated monocyte %Ordered By: Reggie Summers on 04-16-2024 Monocytes/100 WBC (Bld) 8.7 % Normal . [facility] Comment on above: Performed By: #### B MP, CBC #### [address] Automated neutrophil %Ordere d By: Reggie Summers on 04-16-2024 Neutrophils/100 WBC (Bld) 62.7 % Normal . [facility] Comment on above: Performed By: #### B MP, CBC #### [address] Basic Metabolic Panelon 03-31 GFR/1.73 sq M.predicted MDRD (S/P/Bld) [Vol rate/Area] 52.325 mL/min/{1.73_m2} Normal [facility] Comment on above: Performed By: #### B MP, CBC #### [address] Calcium [Mass/volume] in Ser um or PlasmaOrdered By: Reggie Summers on 04-16-2024 Calcium [Mass/Vol] 8.8 mg/dL Normal 8.6-10.3 [facility] Comment on above: Result Comment: PERF ORMED BY: [place] [address] PATHOLOGIST [employer]NA[employer] ARACELI HOLLEY M.D. Performed By: #### B MP, CBC #### [address] Carbon dioxide, total [Moles /volume] in Serum or PlasmaOrdered By: Reggie Summers on 04-16-2024 CO2 [Moles/Vol] 25.6 mmol/L Normal 21.0-31.0 [facility] Comment on above: Performed By: #### B MP, CBC #### [address] Chloride [Moles/volume] in S ramos or PlasmaOrdered By: Reggie Summers on 04-16-2024 Chloride [Moles/Vol] 106 mmol/L Normal 98-107 [facility] Comment on above: Performed By: #### B MP, CBC #### [address] Complete Blood Count Auto Di ffon 04-16-2024 Mean Corpuscular HGB Conc 33.9 g/dL Normal 32.0-35.0 [facility] Comment on above: Performed By: #### B MP, CBC #### [address] NRBC% 0.1 /100{WBC} Normal 0-0.5 [facility] Comment on above: Performed By: #### B MP, CBC #### [address] Creatinine [Mass/volume] in Serum or PlasmaOrdered By: Reggie Summers on 04-16-2024 Creatinine [Mass/Vol] 1.30 mg/dL High 0.60-1.20 [facility] Comment on above: Performed By: #### B MP, CBC #### [address] Erythrocyte distribution wid th [Ratio] by Automated countOrdered By: Reggie Summers on 04-16-2024 Erythrocyte distribution width (RBC) [Ratio] 13.6 % Normal 11.9-15.3 [facility] Comment on above: Performed By: #### B MP, CBC #### [address] [address] [place] Erythrocytes [#/volume] in B lood by Automated countOrdered By: Reggie Summers on 04-16-2024 RBC (Bld) [#/Vol] 4.10 10*6/uL Normal 3.60-5.00 [facility] Comment on above: Performed By: #### B MP, CBC #### [facility] [address] [place] [address] [place] Glucose [Mass/volume] in Ser um or PlasmaOrdered By: Reggie Summers on 04-16-2024 Glucose [Mass/Vol] 63 mg/dL Low 70-100 [facility] Comment on above: ADA recommended refe rence rangeRandom Glucose Reference Range is dependent on time and content of last meal. Glucose of more than 200 mg/dL in a nonstressed, ambulatory subject supports the diagnosis of Diabetes Mellitus. Result Comment: [place] om Glucose Reference Range is dependent on time and content of last meal. Glucose of more than 200 mg/dL in a nonstressed, ambulatory subject supports the diagnosis of Diabetes Mellitus. ADA recommended reference range Performed By: #### B MP, CBC #### [facility] [address] [place] [address] Hematocrit [Volume Fraction] of Blood by Automated countOrdered By: Reggie Summers on 04-16-2024 Hematocrit (Bld) [Volume fraction] 40.2 % Normal 34.0-46.4 [facility] Comment on above: Performed By: #### B MP, CBC #### [facility] [address] [place] [address] [place] Hemoglobin [Mass/volume] in BloodOrdered By: Reggie Summers on 04-16-2024 Hemoglobin (Bld) [Mass/Vol] 13.6 g/dL Normal 11.8-15.4 [facility] Comment on above: Performed By: #### B MP, CBC #### [facility] [address] [place] [address] Leukocytes [#/volume] correc tabatha for nucleated erythrocytes in Blood by Automated counOrdered By: Reggie Summers on 04-16-2024 WBC corrected for nucl RBC Auto (Bld) [#/Vol] 8.3 10*3/uL 3.8-11.6 [facility] Leukocytes [#/volume] in Blo od by Automated countOrdered By: Reggie Summers on 04-16-2024 WBC (Bld) [#/Vol] 8.3 10*3/uL Normal 3.8-11.6 [facility] Comment on above: Performed By: #### B MP, CBC #### [facility] [address] [place] [address] [place] Lymphocytes [#/volume] in Bl ood by Automated countOrdered By: Reggie Summers on 04-16-2024 Lymphocytes (Bld) [#/Vol] 1.8 10*3/uL Normal 1.00-4.8 [facility] Comment on above: Performed By: #### B MP, CBC #### [address] Lymphocytes/100 leukocytes i n Blood by Automated countOrdered By: Reggie Summers on 04-16-2024 Lymphocytes/100 WBC (Bld) 22.0 % Normal . [facility] Comment on above: Performed By: #### B MP, CBC #### [address] MCH [Entitic mass] by Automa tabatha countOrdered By: Reggie Summers on 04-16-2024 MCH (RBC) [Entitic mass] 33.3 pg Normal 24.7-34.3 [facility] Comment on above: Performed By: #### B MP, CBC #### [address] MCHC Auto (RBC) [Mass/Vol]Or dered By: Reggie Summers on 04-16-2024 MCHC (RBC) [Mass/Vol] 33.9 g/dL 32.0-35.0 [facility] MCV [Entitic volume] by Auto mated countOrdered By: Reggie Summers on 04-16-2024 MCV (RBC) [Entitic vol] 98.2 fL Normal 80-100 [facility] Comment on above: Performed By: #### B MP, CBC #### [address] Neutrophils [#/volume] in Bl ood by Automated countOrdered By: Reggie Summers on 04-16-2024 Neutrophils (Bld) [#/Vol] 5.2 10*3/uL Normal 1.8-7.7 [facility] Comment on above: Performed By: #### B MP, CBC #### [address] No Panel InformationOrdered By: Reggie Summers on 04-16-2024 Estimated GFR (CKD-EPI) 52.325 mL/Min [facility] Creatinine Clearance (Chem N/A [facility] Nucleated erythrocytes [Pres ence] in Blood by Automated countOrdered By: Reggie Summers on 04-16-2024 Nucleated RBC Auto Ql (Bld) 0.1 /100{WBC} 0-0.5 [facility] Platelet mean volume [Entiti c volume] in Blood by Automated countOrdered By: Reggie Summers on 04-16-2024 Platelet mean volume (Bld) [Entitic vol] 9.3 fL Normal 6.3-10.7 [facility] Comment on above: Performed By: #### B MP, CBC #### [facility] [address] [place] [address] Platelets [#/volume] in Bloo d by Automated countOrdered By: Reggie Summers on 04-16-2024 Platelets (Bld) [#/Vol] 205 10*3/uL Normal 150-450 [facility] Comment on above: Performed By: #### B MP, CBC #### [facility] [address] [place] [address] Potassium [Moles/volume] in Serum or PlasmaOrdered By: Reggie Summers on 04-16-2024 Potassium [Moles/Vol] 4.3 mmol/L Normal 3.5-5.1 [facility] Comment on above: Performed By: #### B MP, CBC #### [facility] [address] [place] [address] Serum or plasma anion gap de terminationOrdered By: Reggie Summers on 04-16-2024 Anion gap [Moles/Vol] 11.7 mmol/L Normal 6.0-15.0 [facility] Comment on above: Performed By: #### B MP, CBC #### [facility] [address] [place] [address] [place] Sodium [Moles/volume] in Ser um or PlasmaOrdered By: Reggei Summers on 04-16-2024 Sodium [Moles/Vol] 139 mmol/L Normal 136-145 [facility] Comment on above: Performed By: #### B MP, CBC #### [facility] [address] Urea nitrogen [Mass/volume] in Serum or PlasmaOrdered By: Reggie Summers on 04-16-2024 Urea nitrogen [Mass/Vol] 12 mg/dL Normal 7-25 [facility] Comment on above: Performed By: #### B MP, CBC #### [facility] [address] COVID/FLU/RSV RT-PCRon 12-24 SARS-CoV-2 (COVID-19) RNA KAREN+probe Ql (Unsp spec) Negative [facility] [employer] Other COVID/FLU/RSV RT-PCR Negative [employer] Other SARS-CoV-2 (COVID-19) RNA NA A+probe Ql (Resp)on 06-01-2022 SARS-CoV-2 (COVID-19) RNA KAREN+probe Ql (Unsp spec) Positive [employer] Other REJI by IFAon 03-22-2022 Antinuclear Antibodies, IFA Negative Normal [facility] Comment on above: Result Comment: Nega tive <1:80 Borderline 1:80 Positive >1:80 ICAP nomenclature: AC-0 For more information about Hep-2 cell patterns use ANApatterns.org, the official website for the International Consensus on Antinuclear Antibody (REJI) Patterns (ICAP). Performed By: #### A NAIFA #### [facility] [address] [place] [address] [address] Andre Haynes THYROID ANTIBODIESon 022 Thyroglobulin Antibody <1.0 Normal 0.0-0.9 [facility] Comment on above: Result Comment: Thyr oglobulin Antibody measured by [email or web address] Methodology Performed By: #### T JESÚS #### [facility] [address] [place] [address] Dr. Andre Haynes Thyroid Peroxidase (TPO) Ab 10 IU/mL Normal 0-34 [facility] Comment on above: Performed By: #### T JESÚS #### [facility] [address] [place] [address] Dr. Andre Haynes ANTISTREPTOLYSIN O AB (ASO)o n 03-19-2022 Antistreptolysin O Ab <20.0 Normal 0.0-200.0 [facility] Comment on above: Performed By: #### A SOAB #### [facility] [address] [place] [address] Dr. Andre Haynes RHEUMATOID FACTORon 03-19-20 22 RA Latex Turbid. <10.0 Normal <14.0 [facility] Comment on above: Performed By: #### R F #### [facility] [address] [place] [address] Dr. Andre Haynes CBC AUTO DIFFon 03-18-2022 BASO # 0.0 103/ul Normal 0.0-0.1 [facility] Comment on above: Performed By: #### C BC #### [facility] [address] [place] [address] Dr. Andre Haynes Basophils/100 WBC (Bld) 0.3 % Normal 0.2-2.0 [facility] Comment on above: Performed By: #### C BC #### [facility] [address] [place] [address] Dr. Andre Haynes EO # 0.4 103/ul Normal 0.0-0.7 [facility] Comment on above: Performed By: #### C BC #### [facility] [address] [place] [address] Dr. Andre Haynes Eosinophils/100 WBC (Bld) 4.0 % Normal 0.9-7.0 [facility] Comment on above: Performed By: #### C BC #### [facility] [address] [place] [address] Dr. Andre Haynes Erythrocyte distribution width (RBC) [Ratio] 12.5 % Normal 11.0-15.0 [facility] Comment on above: Performed By: #### C BC #### [facility] [address] [place] [address] Dr. Andre Haynes Hematocrit (Bld) [Volume fraction] 41.9 % Normal 36.0-48.0 [facility] Comment on above: Performed By: #### C BC #### [facility] [address] [place] [address] Dr. Andre Haynes Hemoglobin (Bld) [Mass/Vol] 14.4 g/dL Normal 12.0-16.0 [facility] Comment on above: Performed By: #### C BC #### [facility] [address] [place] [address] Dr. Andre Haynes IG # 0.04 10e3/ul Critically high 0.00-0.03 [facility] Comment on above: Performed By: #### C BC #### [facility] [address] [place] [address] Dr. Andre Haynes IG % 0.4 % Normal 0.0-0.5 [facility] Comment on above: Performed By: #### C BC #### [facility] [address] [place] [address] Dr. Andre Haynes LYMPH # 2.6 103/ul Normal 1.2-3.8 [facility] Comment on above: Performed By: #### C BC #### [facility] [address] [place] [address] Dr. Andre Haynes Lymphocytes/100 WBC (Bld) 29.2 % Normal 20.5-60.0 [facility] Comment on above: Performed By: #### C BC #### [facility] [address] [place] [address] Dr. Andre Haynes MANUAL DIFF REQ NO Normal [facility] Comment on above: Performed By: #### C BC #### [facility] [address] [place] [address] Dr. Andre Haynes MCH (RBC) [Entitic mass] 33.3 pg Normal 26.7-34.0 [facility] Comment on above: Performed By: #### C BC #### [facility] [address] [place] [address] Dr. Andre Haynes MCHC (RBC) [Mass/Vol] 34.4 g/dL Normal 29.9-35.2 [facility] Comment on above: Performed By: #### C BC #### [facility] [address] [place] [address] Dr. Andre Haynes MCV (RBC) [Entitic vol] 97.0 fL Normal 81.0-99.0 [facility] Comment on above: Performed By: #### C BC #### [facility] [address] [place] [address] Dr. Andre Haynes MONO # 0.6 103/ul Normal 0.3-0.8 [facility] Comment on above: Performed By: #### C BC #### [facility] [address] [place] [address] Dr. Andre Haynes Monocytes/100 WBC (Bld) 6.4 % Normal 1.7-12.0 [facility] Comment on above: Performed By: #### C BC #### [facility] [address] [place] [address] Dr. Andre Haynes NEUT # 5.4 103/ul Normal 1.4-6.5 [facility] Comment on above: Performed By: #### C BC #### [facility] [address] [place] [address] Dr. Andre Haynes Neutrophils/100 WBC (Bld) 59.7 % Normal 43.0-75.0 [facility] Comment on above: Performed By: #### C BC #### [facility] [address] [place] [address] Dr. Andre Haynes Platelet mean volume (Bld) [Entitic vol] 9.9 fL Normal 9.5-13.5 [facility] Comment on above: Performed By: #### C BC #### [facility] [address] [place] [address] [address] Andre Haynes PLT 217 103/ul Normal 150-450 [facility] Comment on above: Performed By: #### C BC #### [facility] [address] [place] [address] [address] Andre Haynes RBC 4.32 106/ul Normal 4.20-5.40 [facility] Comment on above: Performed By: #### C BC #### [facility] [address] [place] [address] Dr. Andre Haynes WBC 9.0 103/ul Normal 4.0-11.0 [facility] Comment on above: Performed By: #### C BC #### [facility] [address] [place] [address] Dr. Andre Haynes CRPon 03-18-2022 CRP [Mass/Vol] mg/L Normal <=1.0 [facility] Comment on above: Performed By: #### R F #### [facility] [address] [place] [address] Dr. Andre Haynes FERRITINon 03-18-2022 Ferritin [Mass/Vol] 35.0 ng/mL Normal 6.2-137.0 [facility] Comment on above: Performed By: #### R F #### [facility] [address] [place] [address] Dr. Andre Haynes FREE T3on 03-18-2022 FREE T3 3.61 pg/mlL Normal 2.18-3.98 [facility] Comment on above: Performed By: #### R F #### [facility] [address] [place] [address] Dr. Andre Haynes FREE T4on 03-18-2022 Free T4 [Mass/Vol] 1.00 ng/dL Normal 0.76-1.46 [facility] Comment on above: Performed By: #### R F #### [facility] [address] [place] [address] Dr. Andre Haynes IRONon 03-18-2022 Iron [Mass/Vol] 87.0 ug/dL Normal 50.0-170.0 [facility] Comment on above: Performed By: #### R F #### [facility] [address] [place] [address] Dr. Andre Haynes LIVER PROFILEon 03-18-2022 Albumin [Mass/Vol] 3.7 g/dL Normal 3.4-5.0 [facility] Comment on above: Performed By: #### R F #### [facility] [address] [place] [address] Dr. Andre Haynes Albumin/Globulin [Mass ratio] 1.3 {ratio} Normal [facility] Comment on above: Performed By: #### R F #### [facility] [address] [place] [address] Dr. Andre Haynes ALP [Catalytic activity/Vol] 74 U/L Normal 46-116 [facility] Comment on above: Performed By: #### R F #### [facility] [address] [place] [address] Dr. Andre Haynes ALT [Catalytic activity/Vol] 24 U/L Normal 14-59 [facility] Comment on above: Performed By: #### R F #### [facility] [address] [place] [address] Dr. Andre Haynes AST [Catalytic activity/Vol] 13 U/L Critically low 15-37 [facility] Comment on above: Performed By: #### R F #### [facility] [address] [place] [address] Dr. Andre Haynes BILI, CONJUGATED 0.1 mg/dL Normal 0.0-0.2 [facility] Comment on above: Performed By: #### R F #### [facility] [address] [place] [address] Dr. Andre Haynes Bilirubin [Mass/Vol] 0.3 mg/dL Normal 0.2-1.0 [facility] Comment on above: Performed By: #### R F #### [facility] [address] [place] [address] Dr. Andre Haynes Globulin (S) [Mass/Vol] 2.8 g/dL Normal T [facility] Comment on above: Performed By: #### R F #### [facility] [address] [address] [address] Andre Haynes Protein [Mass/Vol] 6.5 g/dL Normal 6.4-8.2 [facility] Comment on above: Performed By: #### R F #### [facility] [address] [address] [address] Andre Haynes PROF CHEM 8 (BAS METB)on Anion gap [Moles/Vol] 12.0 mmol/L Normal [facility] Comment on above: Performed By: #### F T3, LIVER, BMP, TSH, URIC, CRP #### [facility] [address] [address] [address] Andre Haynes Calcium [Mass/Vol] 8.8 mg/dL Normal 8.5-10.1 [facility] Comment on above: Performed By: #### F T3, LIVER, BMP, TSH, URIC, CRP #### [facility] [address] [address] [address] Andre Haynes Chloride [Moles/Vol] 104 mmol/L Normal 98-107 [facility] Comment on above: Performed By: #### F T3, LIVER, BMP, TSH, URIC, CRP #### [facility] [address] [address] [address] Andre Haynes CO2 [Moles/Vol] 25.8 mmol/L Normal 21.0-32.0 [facility] Comment on above: Performed By: #### F T3, LIVER, BMP, TSH, URIC, CRP #### [facility] [address] [address] [address] Andre Haynes Creatinine [Mass/Vol] 1.05 mg/dL Critically high 0.55-1.02 [facility] Comment on above: Performed By: #### F T3, LIVER, BMP, TSH, URIC, CRP #### [facility] [address] [address] [address] Andre Haynes EGFR-AF GEORGIAN >60 Normal >=60 [facility] Comment on above: Performed By: #### F T3, LIVER, BMP, TSH, URIC, CRP #### [facility] [address] [address] [address] Andre Haynes EGFR-NON AF GEORGIAN 58 mL/min/1.73m2 Critically low >=60 [facility] Comment on above: Performed By: #### F T3, LIVER, BMP, TSH, URIC, CRP #### [facility] [address] [address] [address] Andre Haynes Glucose [Mass/Vol] 85 mg/dL Normal 74-106 [facility] Comment on above: Performed By: #### F T3, LIVER, BMP, TSH, URIC, CRP #### [facility] [address] [address] [address] Andre Haynes Potassium [Moles/Vol] 3.8 mmol/L Normal 3.5-5.1 [facility] Comment on above: Performed By: #### F T3, LIVER, BMP, TSH, URIC, CRP #### [facility] [address] [address] [address] Andre Haynes Sodium [Moles/Vol] 138 mmol/L Normal 136-145 [facility] Comment on above: Performed By: #### F T3, LIVER, BMP, TSH, URIC, CRP #### [facility] [address] [address] [address] Andre Haynes Urea nitrogen [Mass/Vol] 11.0 mg/dL Normal 7.0-18.0 [facility] Comment on above: Performed By: #### F T3, LIVER, BMP, TSH, URIC, CRP #### [facility] [address] [address] [address] Andre Haynes Urea nitrogen/Creatinine [Mass ratio] 10.5 mg/mg Normal [facility] Comment on above: Performed By: #### F T3, LIVER, BMP, TSH, URIC, CRP #### [facility] [address] [address] [address] Andre Haynes PROTIMEon 03-18-2022 INR Coag (PPP) [Relative time] 1.01 {INR} Normal [facility] Comment on above: Performed By: #### P TT, PT #### [facility] [address] [place] [address] Dr. Andre Haynes INR GUIDELINES SEE BELOW Normal [facility] Comment on above: Result Comment: BRICE RED INR: 2.0 - 3.0 CONDITIONS NOT LISTED BELOW 2.5 - 3.5 FOR PROSTHETIC HEART VALVE REPLACEMENT 2.5 - 3.5 RECURRENT THROMBOSIS Performed By: #### P TT, PT #### [facility] [address] [place] [address] Dr. Andre Haynes PT Coag (PPP) [Time] 10.9 s Normal 9.0-11.6 [facility] Comment on above: Performed By: #### P TT, PT #### [facility] [address] [place] [address] Dr. Andre Haynes PTTon 03-18-2022 aPTT Coag (Bld) [Time] 27.2 s Normal 22.3-36.2 [facility] Comment on above: Performed By: #### P TT, PT #### [facility] [address] [place] [address] Dr. Andre Haynes SED RATE [facility] 2021 SED RATE 1 mm/hr Normal <=20 [facility] Comment on above: Performed By: #### A SOAB #### [facility] [address] [place] [address] Dr. Andre Haynes TSHon 03-18-2022 TSH 2.218 uIU/mL Normal 0.358-3.740 [facility] Comment on above: Performed By: #### R F #### [facility] [address] [place] [address] Dr. Andre Haynes TSH RANGE SEE BELOW Normal [facility] Comment on above: Result Comment: <0.3 4 UIU/ml HYPERTHYROID 0.34-5.60 UIU/ml EUTHYROID >5.60 UIU/ml HYPOTHYROID Performed By: #### R F #### [facility] [address] [place] [address] Dr. Andre aHynes UA (CLEAN/CATCH) AUTOMATIC DISPENSER MECHANIC/MICRO I F IND.on 03-18-2022 Bilirubin Ql (U) Negative Normal NEGATIVE [facility] Comment on above: Performed By: #### R F #### [facility] [address] [place] [address] Dr. Andre Haynes Clarity (U) CLEAR Normal CLEAR [facility] Comment on above: Performed By: #### R F #### [facility] [address] [place] [address] Dr. Andre Haynes Color (U) YELLOW Normal YELLOW [facility] Comment on above: Performed By: #### R F #### [facility] [address] [place] [address] Dr. Andre Haynes Glucose Ql (U) Negative Normal NEGATIVE [facility] Comment on above: Performed By: #### R F #### [facility] [address] [place] [address] Dr. Andre Haynes Hemoglobin Ql (U) Negative Normal NEGATIVE [facility] Comment on above: Performed By: #### R F #### [facility] [address] [place] [address] Dr. Andre Haynes Ketones Ql (U) Negative Normal NEGATIVE [facility] Comment on above: Performed By: #### R F #### [facility] [address] [place] [address] Dr. Andre Haynes LEUKOCYTES Negative Normal NEGATIVE [facility] Comment on above: Performed By: #### R F #### [facility] [address] [place] [address] Dr. Andre Haynes Nitrite Ql (U) Negative Normal NEGATIVE [facility] Comment on above: Performed By: #### R F #### [facility] [address] [place] [address] Dr. Andre Haynes pH (U) 6.0 [pH] Normal 5-9 [facility] Comment on above: Performed By: #### R F #### [facility] [address] [place] [address] Dr. Andre Haynes SPEC GRAVITY 1.020 Normal 1.005-<=1.02 5 [facility] Comment on above: Performed By: #### R F #### [facility] [address] [place] [address] Dr. Andre Haynes UA PROTEIN Negative Normal NEGATIVE/ TRACE [facility] Comment on above: Performed By: #### R F #### [facility] [address] [place] [address] Dr. Andre Haynes UR MICRO IND MICROSCOPIC ALREADY ORDERED Normal [facility] Comment on above: Performed By: #### R F #### [facility] [address] [place] [address] Dr. Andre Haynes Urobilinogen Qn (U) 0.2 {Rafal'U}/dL Normal 0.2 - 1. 0 [facility] Comment on above: Performed By: #### R F #### [facility] [address] [place] [address] Dr. Andre Haynes URIC ACID SERUMon 03-18-2022 Urate [Mass/Vol] 3.9 mg/dL Normal 2.6-6.0 [facility] Comment on above: Performed By: #### R F #### [facility] [address] [place] [address] Dr. Andre Haynes URINE MICROSCOPIC ONLYon BACTERIA NONE SEEN Normal NONE SEEN [facility] Comment on above: Performed By: #### R F #### [facility] [address] [place] [address] Dr. Andre Haynes Bacteria identified Cx Nom (U) NOT INDICATED Normal [facility] Comment on above: Performed By: #### R F #### [facility] [address] [place] [address] Dr. Andre Haynes CAST NONE SEEN Normal NONE SEEN [facility] Comment on above: Performed By: #### R F #### [facility] [address] [place] [address] Dr. Andre Haynes Crystals LM Nom (Urine sed) NONE SEEN Normal NONE SEEN [facility] Comment on above: Performed By: #### R F #### [facility] [address] [place] [address] Dr. Andre Haynes Epithelial cells LM Ql (Urine sed) FEW Abnormal NONE SEEN /RARE [facility] Comment on above: Performed By: #### R F #### [facility] [address] [place] [address] Dr. Andre Haynes MUCOUS NONE SEEN Normal NONE SEEN [facility] Comment on above: Performed By: #### R F #### [facility] [address] [place] [address] Dr. Andre Haynes RBC 0-2 Normal 0-2 [facility] Comment on above: Performed By: #### R F #### [facility] [address] [place] [address] Dr. Andre Haynes WBC NONE SEEN Normal NONE SEEN [facility] Comment on above: Performed By: #### R F #### [facility] [address] [place] [address] Dr. Andre Haynes ER URINE PROFILEon 2 Bilirubin Ql (U) Negative Normal NEGATIVE [facility] Comment on above: Performed By: #### E RUR #### [facility] [address] [place] [address] Dr. Andre Haynes Clarity (U) CLEAR Normal CLEAR [facility] Comment on above: Performed By: #### E RUR #### [facility] [address] [place] [address] Dr. Andre Haynes Color (U) LT. YELLOW Normal YELLOW [facility] Comment on above: Performed By: #### E RUR #### [facility] [address] [place] [address] Dr. Andre Haynes ERUAHJuvenal A micrscopic examination will be performed if indicated. Normal [facility] Comment on above: Performed By: #### E RUR #### [facility] [address] [place] [address] Dr. Andre Haynes Glucose Ql (U) Negative Normal NEGATIVE [facility] Comment on above: Performed By: #### E RUR #### [facility] [address] [place] [address] Dr. Andre Haynes Hemoglobin Ql (U) Negative Normal NEGATIVE [facility] Comment on above: Performed By: #### E RUR #### [facility] [address] [place] [address] Dr. Andre Haynes Ketones Ql (U) Negative Normal NEGATIVE [facility] Comment on above: Performed By: #### E RUR #### [facility] [address] [place] [address] Dr. Andre Haynes LEUKOCYTES Negative Normal NEGATIVE [facility] Comment on above: Performed By: #### E RUR #### [facility] [address] [place] [address] Dr. Andre Haynes Nitrite Ql (U) Negative Normal NEGATIVE [facility] Comment on above: Performed By: #### E RUR #### [facility] [address] [place] [address] Dr. Andre Haynes pH (U) 6.0 [pH] Normal 5-9 [facility] Comment on above: Performed By: #### E RUR #### [facility] [address] [place] [address] Dr. Andre Haynes SPEC GRAVITY <=1.005 Abnormal 1.005-<=1.02 5 [facility] Comment on above: Performed By: #### E RUR #### [facility] [address] [place] [address] Dr. Andre Haynes UA PROTEIN Negative Normal NEGATIVE/ TRACE [facility] Comment on above: Performed By: #### E RUR #### [facility] [address] [place] [address] Dr. Andre Haynes UR MICRO IND NOT INDICATED Normal [facility] Comment on above: Performed By: #### E RUR #### [facility] [address] [place] [address] Dr. Andre Haynes Urobilinogen Qn (U) 0.2 {Rafal'U}/dL Normal 0.2 - 1. 0 [facility] Comment on above: Performed By: #### E RUR #### [facility] [address] [place] [address] Dr. Andre Haynes XR LSPINE MIN 4 [...] TESS BANGURA Date: 2021-11-19 07:38 Normal [facility] OUTSIDE CONSULT MSKon 2020 OUTSIDE CONSULT MSK [facility] Department of Radiology [address] [place] [id number] Patient Name: ROSELIA LO : 1980 Sex: F Age: Race: White Pt. Location: [facility] Patient Status: Ordered Date: 02/05/2021 3:35:00 PM Completed Date: 02/05/2021 03:51 PM Requesting Provider: REZA TUCKER Attending Provider: Report Copy To: Signs & Symptoms: pt has persistent rt sided pectoralis pain and weakness. Assess pectoralis tendon for injury and/or tear History: Mri of rt shoulder from [facility] dated 11/05/20. Over read requested by Dr Tucker Comments: Exam: OUTSIDE CONSULT MSK OUTSIDE CONSULT MSK 02/05/2021 3:51 PM OUTSIDE STUDY: TECHNIQUE: Outside images of the right shoulder obtained from [facility] dated November 05, 2020. Image [...] interpretation. Electronically signed: Jonathan Huerta. Transcribed by: [email or web address], User Resident: JONATHAN HUERTA Electronically Signed by: JONATHAN HUERTA @ 02/13/2021 12:32 PM I personally read this/these film(s) with this resident Normal [facility] Vital Signs Date Time Vital Sign Value Performing Clinician Facility 01-11-2025 13:06-0400 Body height 160.02 cm Ainsley Sellers Work Phone: [facility] 01-11-2025 13:06-0400 Body mass index (BMI) [Ratio] 33.3 kg/m2 Ainsley Sellers Work Phone: [facility] 01-11-2025 13:06-0400 Body temperature 98.9 [degF] Ainsley Sellers Work Phone: [facility] 01-11-2025 13:06-0400 Body weight 85.27 kg Ainsley Aichholz Work Phone: [facility] 01-11-2025 13:06-0400 Diastolic blood pressure 85 mm[Hg] Ainsley Aichholz Work Phone: [facility] 01-11-2025 13:06-0400 Heart rate 107 /min Ainsley Aichholz Work Phone: [facility] 01-11-2025 13:06-0400 Respiratory rate 18 /min Ainsley Aichholz Work Phone: [facility] 01-11-2025 13:06-0400 SaO2% (BldA) [Mass fraction] 99 % Ainsley Aichholz Work Phone: [facility] 01-11-2025 13:06-0400 Systolic blood pressure 148 mm[Hg] Ainsley Aichholz Work Phone: [facility] 12-19-2024 13:08-0500 Diastolic blood pressure 63 mm[Hg] Ainsley Aichholz Work Phone: [facility] 12-19-2024 13:08-0500 Heart rate 70 /min Ainsley Aichholz Work Phone: [facility] 12-19-2024 13:08-0500 Respiratory rate 16 /min Ainsley Aichholz Work Phone: [facility] 12-19-2024 13:08-0500 SaO2% (BldA) [Mass fraction] 97 % Ainsley Aichholz Work Phone: [facility] 12-19-2024 13:08-0500 Systolic blood pressure 123 mm[Hg] Ainsley Aichholz Work Phone: [facility] 12-19-2024 11:12-0500 Body height 160.02 cm Ainsley Aichholz Work Phone: [facility] 12-19-2024 11:12-0500 Body weight 86.18 kg Ainsleyjoaquina Maoholz Work Phone: [facility] 11-15-2024 09:03-0500 Body height 160 cm Ainsley Georginahholz [employer] Work Phone: [facility] 11-15-2024 09:03-0500 Body mass index (BMI) [Ratio] 34.76 kg/m2 Ainsley Georginahholz [employer]CH[employer]IAN Work Phone: [facility] 11-15-2024 09:03-0500 Body temperature 98.8 [degF] Ainsley Georginahholz [employer] TECHNICIAN Work Phone: [facility] 11-15-2024 09:03-0500 Body weight 89 kg Ainsley Maycoholz [employer] TECH[employer]ICIAN Work Phone: [facility] 11-15-2024 09:03-0500 Diastolic blood pressure 78 mm[Hg] Ainsley Georginahholz [employer] TECHNICIAN Work Phone: [facility] 11-15-2024 09:03-0500 Heart rate 91 /min Ainsley Georginahholz [employer] TECH[employer]ICIAN Work Phone: [facility] 11-15-2024 09:03-0500 Respiratory rate 20 /min Ainsley Georginahholz [employer] TECH[employer]ICIAN Work Phone: [facility] 11-15-2024 09:03-0500 SaO2% (BldA) [Mass fraction] 97 % Ainsley Maycoholz [employer] TECHNICIAN Work Phone: [facility] 11-15-2024 09:03-0500 Systolic blood pressure 110 mm[Hg] Ainsley Aichholz [employer] TECHNICIAN Work Phone: [facility] 11-01-2024 13:05-0500 Body mass index (BMI) [Ratio] 33.76 kg/m2 Ainsley Aichholz [employer]CH[employer]ICIAN Work Phone: [facility] 11-01-2024 13:05-0500 Body temperature 98.49 [degF] Ainsley Aichholz [employer] TECHNICIAN Work Phone: [facility] 11-01-2024 13:05-0500 Body weight 86.46 kg Ainsley Aichholz [employer] TECH[employer]ICIAN Work Phone: [facility] 11-01-2024 13:05-0500 Diastolic blood pressure 68 mm[Hg] Ainsley Aichholz [employer] TECHNICIAN Work Phone: [facility] 11-01-2024 13:05-0500 Heart rate 104 /min Ainsley Aichholz [employer] TECHNICIAN Work Phone: [facility] 11-01-2024 13:05-0500 Respiratory rate 18 /min Ainsley Aichholz [employer] TECH[employer]ICIAN Work Phone: [facility] 11-01-2024 13:05-0500 SaO2% (BldA) [Mass fraction] 97 % Ainsley Aichholz [employer] TECHNICIAN Work Phone: [facility] 11-01-2024 13:05-0500 Systolic blood pressure 102 mm[Hg] Ainsley Aichholz [employer] TECHNICIAN Work Phone: [facility] 07-25-2024 17:53-0400 Body height 160 cm Ainsley Aichholz [employer] TECHNICIAN Work Phone: [facility] 07-25-2024 17:53-0400 Body mass index (BMI) [Ratio] 36.07 kg/m2 Ainsley Aichholz [employer] TECH[employer]ICIAN Work Phone: [facility] 07-25-2024 17:53-0400 Body temperature 98.71 [degF] Ainsley Aichholz [employer] TECHNICIAN Work Phone: [facility] 07-25-2024 17:53-0400 Body weight 92.35 kg Ainsley Aichholz [employer] TECHNICIAN Work Phone: [facility] 07-25-2024 17:53-0400 Heart rate 89 /min Ainsley Aichholz [employer] TECHNICIAN Work Phone: [facility] 07-25-2024 17:53-0400 Respiratory rate 19 /min Ainsley Aichholz [employer] TECHNICIAN Work Phone: [facility] 07-25-2024 17:53-0400 SaO2% (BldA) [Mass fraction] 97 % Ainsley Aichholz [employer] TECHNICIAN Work Phone: [facility] 06-26-2024 15:58-0400 Body height 160 cm Ainsley Aichholz [employer] TECH[employer]ICIAN Work Phone: [facility] 06-26-2024 15:58-0400 Body mass index (BMI) [Ratio] 36.07 kg/m2 Ainsley Aichholz [employer] TECH[employer]ICIAN Work Phone: [facility] 06-26-2024 15:58-0400 Body temperature 98.1 [degF] Ainsley Aichholz [employer] TECHNICIAN Work Phone: [facility] 06-26-2024 15:58-0400 Body weight 92.35 kg Ainsley Aichholz [employer] TECHNICIAN Work Phone: [facility] 06-26-2024 15:58-0400 Diastolic blood pressure 70 mm[Hg] Ainsley Aichholz [employer] TECHNICIAN Work Phone: [facility] 06-26-2024 15:58-0400 Heart rate 107 /min Ainsley Aichholz [employer] TECHNICIAN Work Phone: [facility] 06-26-2024 15:58-0400 Respiratory rate 18 /min Ainsley Aichholz [employer] TECHNICIAN Work Phone: [facility] 06-26-2024 15:58-0400 SaO2% (BldA) [Mass fraction] 98 % Ainsley Aichholz [employer] TECHNICIAN Work Phone: [facility] 06-26-2024 15:58-0400 Systolic blood pressure 110 mm[Hg] Ainsley Aichholz [employer] TECHNICIAN Work Phone: [facility] 05-28-2024 14:00-0400 Diastolic blood pressure 92 mm[Hg] Ainsley Aichholz Work Phone: [facility] 05-28-2024 14:00-0400 Heart rate 89 /min Ainsley Aichholz Work Phone: [facility] 05-28-2024 14:00-0400 Respiratory rate 16 /min Ainsley Aichholz Work Phone: [facility] 05-28-2024 14:00-0400 SaO2% (BldA) [Mass fraction] 95 % Ainsley Aichholz Work Phone: [facility] 05-28-2024 14:00-0400 Systolic blood pressure 125 mm[Hg] Ainsley Aichholz Work Phone: [facility] 05-28-2024 12:23-0400 Body temperature 97.9 [degF] Ainsley Georginahholz Work Phone: [facility] 05-28-2024 11:38-0400 Inhaled oxygen flow rate 8 L/min Ainsley Georginahholz Work Phone: [facility] 05-28-2024 09:07-0400 Body height 160.02 cm Ainsley Georginahholz Work Phone: [facility] 05-28-2024 09:07-0400 Body mass index (BMI) [Ratio] 34.7 kg/m2 Ainsley Aichholz Work Phone: [facility] 05-28-2024 09:07-0400 Body weight 88.9 kg Ainsley Georginahholz Work Phone: [facility] 04-05-2024 11:08-0400 Body height 160.02 cm [facility] 04-05-2024 11:08-0400 Body mass index (BMI) [Ratio] 34 kg/m2 [facility] 04-05-2024 11:08-0400 Body weight 87.08 kg [facility] 02-24-2024 09:23-0400 Body height 160.02 cm [facility] 02-24-2024 09:23-0400 Body mass index (BMI) [Ratio] 34.7 kg/m2 [facility] 02-24-2024 09:23-0400 Body weight 89 kg [facility] 01-01-2024 14:16-0500 Body height 160.02 cm [facility] 01-01-2024 14:16-0500 Body mass index (BMI) [Ratio] 31.5 kg/m2 [facility] 01-01-2024 14:16-0500 Body temperature 98.3 [degF] [facility] [facility]24 14:16-0500 Body weight 80.73 kg [facility] 01-01-2024 14:16-0500 Heart rate 99 /min [facility] 01-01-2024 14:16-0500 Respiratory rate 18 /min [facility] 01-01-2024 14:16-0500 SaO2% (BldA) [Mass fraction] 98 % [facility] 12-24-2022 09:25-0500 Body height 160.02 cm Aicha Vonnie Other [facility] [employer] Other 12-24-2022 09:25-0500 Body mass index (BMI) [Ratio] 29.58 kg/m2 Aicha Vonnie Other [facility] [employer] Other 12-24-2022 09:25-0500 Body temperature 98.8 [degF] Aicha Vonnie Other [facility] Other 12-24-2022 09:25-0500 Body weight 75.75 kg Aicha Vonnie Other [facility] Other 12-24-2022 09:25-0500 Respiratory rate 18 /min Aicha Vonnie Other [facility] Other 12-24-2022 09:25-0500 SaO2% (BldA) [Mass fraction] 95 % Aicha Shankar Other [facility] Other 06-01-2022 18:20-0400 Body height 160.02 cm Aicha Shankar Other [facility] Other 06-01-2022 18:20-0400 Body mass index (BMI) [Ratio] 27.45 kg/m2 Aicha Shankar Other [facility] Other 06-01-2022 18:20-0400 Body temperature 99.5 [degF] Aicha Shankar Other [facility] Other 06-01-2022 18:20-0400 Body weight 70.31 kg Aicha Shankar Other [facility] Other 06-01-2022 18:20-0400 Respiratory rate 18 /min Aicha Shankar Other [facility] Other 06-01-2022 18:20-0400 SaO2% (BldA) [Mass fraction] 98 % Aicha Shankar Other [facility] Other Encounters Encounter Date Encounter Type Care Provider Facility Start: 01-11-2025 End: 01-11-2025 ambulatory Ainsley Sellers Work Phone: [facility] Work Phone: Start: 01-11-2025 End: 01-11-2025 Patient encounter procedure Ainsley Sellers Work Phone: [facility] Work Phone: Start: 12-21-2024 Non-patient / Non-visit Ainsley frankel Work Phone: [facility] Work Phone: Start: 12-19-2024 Non-patient / Non-visit Ainsley frankel Work Phone: [facility] Work Phone: Start: 12-19-2024 End: 12-19-2024 Admission to same day surgery center Ainsley Sellers Work Phone: [facility] Work Phone: Start: 12-19-2024 End: 12-19-2024 ambulatory Ainsley Sellers Work Phone: [facility] Work Phone: Start: 12-11-2024 End: 12-11-2024 Refill Ainsley eSllers MA[employer] CONTROL TECHNICIAN Work Phone: [facility] Comment on above: Generalized abdomina l pain (Primary Dx) Start: 12-10-2024 End: 12-10-2024 ambulatory [facility] Start: 11-23-2024 End: 11-23-2024 ambulatory [facility] Start: 11-23-2024 Encounter for gynecological examination (general) (routine) without abnormal findings [facility] Start: 11-23-2024 End: 11-23-2024 ambulatory [facility] Start: 11-23-2024 Encounter for gynecological examination (general) (routine) without abnormal findings [facility] Start: 11-15-2024 End: 11-15-2024 Office outpatient visit 25 minutes Ainsley Sellers MASTER FIRE CONTROL TECHNICIAN Work Phone: [facility] Comment on above: Anxiety (Primary Dx) ; Obesity (BMI 30-39.9); Diverticulitis; Tobacco user; Current moderate episode of major depressive disorder without prior episode (HCC) ([facility]/HCC) Start: 11-15-2024 End: 11-15-2024 ambulatory AINSLEY AICHHOLZ Not Available Start: 11-13-2024 End: 11-14-2024 Refill Ainsley Aichholz MASTER FIRE CONTROL TECHNICIAN Work Phone: [facility] Comment on above: Anxiety Start: 11-01-2024 End: 11-01-2024 ambulatory AINSLEY AICHHOLZ Not Available Start: 11-01-2024 End: 11-01-2024 Office outpatient new 45 minutes Ainsley Aichholz MASTER FIRE CONTROL TECHNICIAN Work Phone: [facility] Comment on above: Diverticulitis (Prim jan Dx); Tobacco user; Obesity (BMI 30-39.9); Cyst of right ovary; Encounter for screening mammogram for malignant neoplasm of breast Start: 10-23-2024 End: 10-23-2024 Telephone encounter Ainsley Aiceddieholz MASTER FIRE CONTROL TECHNICIAN Work Phone: [facility] Start: 07-25-2024 End: 07-25-2024 Office outpatient visit 15 minutes Ainsley Aichholz MASTER [employer]RE CONTROL TECHNICIAN Work Phone: [facility] Comment on above: Anxiety (Primary Dx) ; Obesity (BMI 30-39.9); Rib pain on right side; Acute urinary retention Start: 07-25-2024 End: 07-25-2024 ambulatory AINSLEY AICHHOLZ Not Available Start: 07-25-2024 End: 07-25-2024 Bamboo flowsheet Ainsley Aichholz MASTER FIRE CONTROL TECHNICIAN Work Phone: [facility] Start: 07-25-2024 End: 07-28-2024 Bamboo flowsheet Ainsley Aichholz MASTER FIRE CONTROL TECHNICIAN Work Phone: [facility] Start: 07-25-2024 End: 07-28-2024 Clinisync Result Encounter Generic External Data Provider [facility] Unsolicited Start: 07-17-2024 End: 07-17-2024 Refill Ainsley Aichholz MASTER FIRE CONTROL TECHNICIAN Work Phone: [facility] Comment on above: Anxiety Start: 07-16-2024 End: 07-17-2024 Refill Ainsley Sellers MASTER FIRE CONTROL TECHNICIAN Work Phone: [facility] Comment on above: Rib pain on right si de; Anxiety Start: 06-26-2024 End: 06-26-2024 Office outpatient visit 15 minutes Ainsley Sellers MASTER FIRE CONTROL TECHNICIAN Work Phone: [facility] Comment on above: Rib pain on right si de (Primary Dx); Obesity (BMI 30-39.9) Start: 06-26-2024 End: 06-26-2024 ambulatory AINSLEY MAYCOHOLZ Not Available Start: 06-26-2024 End: 06-26-2024 Bamboo flowsheet Ainsley Courtneyz MASTER FIRE CONTROL TECHNICIAN Work Phone: [facility] Start: 06-26-2024 End: 06-26-2024 Bamboo flowsheet Ainsley Maycoholz MASTER FIRE CONTROL TECHNICIAN Work Phone: [facility] Start: 06-11-2024 End: 06-11-2024 ambulatory AINSLEY COURTNEYZ Not Available Start: 05-28-2024 End: 05-28-2024 Admission to same day surgery center Ainsley Courtneyz Work Phone: [facility] [place] Start: 05-28-2024 End: 05-28-2024 ambulatory Ainsley J Georginahholz Work Phone: [facility] Work Phone: Start: 04-26-2024 End: 04-26-2024 ambulatory AINSLEY MAYCOHOLZ Not Available Start: 04-16-2024 End: 04-16-2024 Patient encounter procedure Ainsley Maycoholz Work Phone: [facility]-Pre-Surgical Testing Work Phone: Start: 04-16-2024 End: 04-16-2024 ambulatory Ainsley J Georginahholz Work Phone: [facility] Work Phone: Start: 04-16-2024 Encounter for preprocedural laboratory examination Reggie Summers [facility] Physician [facility] Start: 04-05-2024 End: 04-05-2024 ambulatory [facility] Work Phone: Start: 04-05-2024 End: 04-05-2024 Patient encounter procedure [facility] Physician [facility] Neurosurgery Work Phone: Start: 03-29-2024 End: 03-29-2024 ambulatory AINSLEY AICHHOLZ Not Available Start: 03-22-2024 End: 03-22-2024 ambulatory ODALIS HERNANDEZY Not Available Start: 03-20-2024 End: 03-23-2024 ambulatory STEPAN NGO Not Available Start: 03-15-2024 End: 03-15-2024 ambulatory ODALIS DUARTE Not Available Start: 03-13-2024 End: 03-13-2024 ambulatory AINSLEY J [facility] Start: 03-13-2024 End: 03-13-2024 ambulatory RENA SMITH Not Available Start: 03-08-2024 End: 03-08-2024 ambulatory AINSLEY AICHHOLZ Not Available Start: 03-07-2024 End: 03-08-2024 ambulatory RENA SMITH Not Available Start: 02-24-2024 End: 02-24-2024 ambulatory [facility] Work Phone: Start: 02-24-2024 End: 02-24-2024 Patient encounter procedure [facility] Neurosurgery Work Phone: Start: 01-30-2024 End: 01-30-2024 ambulatory AINSLEY AICHHOLZ Not Available Start: 01-18-2024 End: 01-18-2024 ambulatory SWETA BRIGGS Not Available Start: 01-12-2024 End: 01-12-2024 ambulatory AINSLEY AICHHOLZ Not Available Start: 01-01-2024 End: 01-01-2024 Patient encounter procedure [facility] Physician [facility] Work Phone: Start: 12-22-2023 End: 12-22-2023 ambulatory [facility] Start: 12-24-2022 End: 12-24-2022 ambulatory Aichashirlene Shankar Other [facility] Other Start: 12-24-2022 Office outpatient vi sit 25 minutes Aicha Vonnie [facility] Start: 06-01-2022 End: 06-01-2022 ambulatory Aicha Vonnie Other [facility] Other Start: 06-01-2022 Office outpatient ne w 30 minutes Aicha Vonnie [facility] Start: 03-18-2022 End: 03-19-2022 ambulatory [employer] AINSLEY COURTNEYZ Facility:[facility] Start: 01-29-2022 End: 01-29-2022 ambulatory [employer] AINSLEY COURTNEYZ Facility:[facility] Start: 11-24-2021 End: 11-27-2021 ambulatory [employer] AINSLEY COURTNEYZ Facility:[facility] Start: 11-18-2021 End: 11-19-2021 ambulatory [employer] AINSLEY MAYCOHOLZ Facility:[facility] Start: 10-17-2021 End: 10-17-[address] RANDOLPH CADET Facility:[facility] Start: 01-06-2021 End: 01-21-2021 ambulatory PHYSICIAN UNKNOWN Facility:[facility] Procedures Date Procedure Procedure Detail Performing Clinician Start: 01-11-2025 Plain X-ray of left hand Ainsley Courtneyz Work Phone: Start: 01-11-2025 Plain X-ray of left wrist Ainsley Maycoholz Work Phone: Start: 12-19-2024 Colonoscopy Ainsley Georginahh olz Work Phone: Start: 11-07-2024 Mammography Ainsley Georginahh olz MASTER [employer]OL TECHNICIAN Work Phone: Start: 07-25-2024 Bacteria identified in Urine by Culture Generic External Data Provider Start: 05-28-2024 Excision of lumbar intervertebral disc Ainsley Georginahholz Work Phone: Start: 05-28-2024 X-ray of lumbar spin e, single view Ainsley Verito Work Phone: Start: 04-15-2023 Mammography Ainsley Medina dino MASTER FIRE CONTROL TECHNICIAN Work Phone: Start: 04-28-2017 Microscopic observat ion [Identifier] in Cervix by Cyto stain Ainsley Sellers MASTER FIRE CONTROL TECHNICIAN Work Phone: Plan of Treatment Date Care Activity Detail Author Start: 11-23-2029 Screening for malignant neoplasm of cervix [facility] Start: 03-24-2027 Screening for malignant neoplasm of cervix [facility] Start: 11-07-2025 Screening for malignant neoplasm of breast Mammogram [facility] Start: 01-16-2025 End: 01-16-2025 Patient encounter procedure 01/16/2025 1:10 PM EDT Office Visit [facility] [address] [place] [id number] Kamaljit Scanlon, [address] [place], [place] [id number] [facility] Start: 01-10-2025 Influenza vaccination Influenza Vacc ine (#1) [facility] Comment on above: Postponed from 07/01 (Patient Refused) Start: 12-24-2024 End: 12-24-2024 Patient encounter procedure 12/24/2024 6:30 PM EST Office Visit [facility] [address] [place] [phone] Ainsley Sellers, MASTER FIRE CONTROL TECHNICIAN [address] [place] [phone] [facility] Start: 12-19-2024 [facility] Start: 11-15-2024 End: 11-15-2024 Patient encounter procedure 11/15/2024 9:00 AM EST Office Visit [facility] [address] [place] [address] Ainsley Sellers, MASTER FIRE CONTROL TECHNICIAN [address] [place] [address] [facility] Start: 11-01-2024 End: 12-30-2025 MG Breast - bilateral Screening Bilateral screening mammogram Imaging Routine Encounter for screening mammogram for malignant neoplasm of breast Expected: 11/01/2024 (Approximate), Expires: 12/30/2025 [facility] Work Phone: Comment on above: Expected: 11/01/2024 (Approximate), Expires: 12/30/2025 Start: 08-30-2024 Influenza vaccination Influenza Vacc ine (#1) [facility] Comment on above: Postponed from 07/01 (Patient Does Not Have Time) Start: 07-25-2024 End: 07-25-[address] [facility] Comment on above: Arrived Start: 07-01-2024 Influenza vaccination Influenza Vacc ine (#1) [facility] Start: 06-26-2024 End: 06-26-2024 Patient encounter procedure 06/26/2024 4:00 PM EDT Office Visit [facility] [address] [place] [address] Ainsley Sellers, ALESSIO [address] [place] [address] [facility] Comment on above: Arrived Start: 06-26-2024 End: 06-26-2025 XR Ribs Views and Chest PA XR ribs 2 views right w chest anteroposterior Imaging Routine Rib pain on right side Expected: 06/26/2024 (Approximate), Expires: 06/26/2025 [facility] Work Phone: Comment on above: Expected: 06/26/2024 (Approximate), Expires: 06/26/2025 Start: 05-28-2024 [facility] Start: 05-28-2024 [facility] Start: 04-15-2024 Screening for malignant neoplasm of breast Mammogram [facility] Start: 04-28-2020 Screening for malignant neoplasm of cervix Pap Smear [facility] Bacteria identified in Urine by Culture URINE CULTURE, ROUTINE Lab Routine 07/25/2024 7:35 PM EDT [facility] Patient Education [facility] Work Phone: Patient referral [facility] Work Phone: XR Hand - left GE 3 Views [facility] XR Lumbar spine Views [facility] XR Wrist - left GE 3 Views [facility] Immunizations Immunization Date Immunization Notes Care Provider Fa cility 09-03-2022 COVID-19 mRNA Bivale nt Booster (Moderna) Ainsley Aichholz Work Phone: [facility] 09-03-2022 Influenza, injectabl e, Madin Nereyda Canine Kidney, preservative free, quadrivalent Ainsley Aichholz MASTER FI[employer] CONTROL TECHNICIAN Work Phone: [facility] 09-03-2022 influenza virus vaccine, unspecified formulation Ainsley Aichholz MASTER FIRE CONTROL TECHNICIAN Work Phone: [facility] 04-12-2021 COVID-19 mRNA-1273 (Moderna) Ainsley Aichholz Work Phone: [facility] 03-15-2021 COVID-19 mRNA-1273 (Moderna) Ainsley Aichholz Work Phone: [facility] 08-29-2016 influenza, seasonal, injectable, preservative free Ainsley Aichholz MASTER FIRE CONTROL TECHNICIAN Work Phone: [facility] 09-04-2010 influenza, seasonal, injectable Ainsley Aichholz MASTER FIRE CONTROL TECHNICIAN Work Phone: [facility] 09-04-2007 influenza virus vaccine, whole virus Ainsley Aichholz MASTER FIRE CONTROL TECHNICIAN Work Phone: [facility] Payers Date Payer Category Payer Self-pay 2022 Private Health Insurance [facility] [id number] 2022 Unknown [employer] [id number] 2022-Present [phone] [address] [address] [place] [address] [id number] 2022 Unknown [id number] 2.16.840.1.571178.19 1980 Unknown [id number] 2.16.840.1.144241.3.579 .2.647 1980 Unknown [id number] 2.16.840.1.716508.3.579 .2.593 1980 Unknown [id number] 2.16.840.1.378051.3.579 .2.593 1980 Unknown [id number] 2.16.840.1.901114.3.579 .2.593 1980 Unknown [id number] 2.16.840.1.303603.3.579 .2.593 1980 Unknown [id number] 2.16.840.1.282437.3.579 .2.593 1980 Unknown [id number] 2.16.840.1.583047.3.579 .2.1259 1980 Unknown [id number] 2.16.840.1.099548.3.579 .2.1259 1980 Unknown [id number] 2.16.840.1.539536.3.579 .2.1259 -15-1980 Unknown [id number] 2.16.840.1.166937.3.579 .2.1258 1980 Unknown [id number] 2.16.840.1.387971.3.579 .2.1258 1980 Unknown [id number] 2.16.840.1.463297.3.579 .2.1258 1980 Unknown [id number] 2.16.840.1.542118.3.579 .2.1258 1980 Unknown [id number] 2.16.840.1.192050.3.579 .2.1258 1980 Unknown [id number] 2..840.1.773413.3.579 .2.1258 1980 Unknown [id number] 2.16.840.1.346889.3.579 .2.1258 1980 Unknown [id number] 2.16.840.1.333156.3.579 .2.1258 1980 Unknown [id number] 2.16.840.1.081867.3.579 .2.1258 1980 Unknown [id number] 2.16.840.1.578397.3.579 .2.1258 1980 Unknown [id number] 2.16.840.1.967489.3.579 .2.1258 1980 Unknown [id number] .16.840.1.331490.3.579 .2.1258 1980 Unknown [id number] .16.840.1.095990.3.579 .2.1258 1980 Unknown [id number] .16.840.1.155391.3.579 .2.1258 1980 Unknown [id number] .16.840.1.227883.3.579 .2.6 1980 Unknown [id number] .16.840.1.367284.3.579 .2.1286 1980 Unknown [id number] 2.16.840.1.832371.3.579 .2.1286 1980 Unknown [id number] 2.16.840.1.776976.3.579 .2.1286 1980 Unknown [id number] 2.16.840.1.075658.3.579 .2.1286 1959 Unknown [id number] Unknown [id number] 2.16.840.1.373539.3.579 .2.531 Unknown [id number] 2.16.840.1.897361.3.579 .2.531 Unknown [id number] 2.16.840.1.628233.3.579 .2.531 Unknown [id number] 2.16.840.1.436126.3.579 .2.531 Worker's Compensation [id number] Social History Date Type Detail Facility Start: 11-15-2023 End: 11-15-2024 Sex Assigned At [facility] Start: 12-24-2022 Tobacco smoking stat [facility] Never smoked tobacco (finding) [facility] Start: 1980 Sex Assigned At Female [facility] Start: 04-16-2024 Tobacco smoking stat [facility] Ex-smoker (finding) [facility] Start: 05-28-2024 End: 01-11-2025 Tobacco smoking status [facility] Smoker (finding) [facility] Start: 10-06-2023 Tobacco smoking stat [facility] Smokes tobacco daily [facility] History of tobacco use Cigarette Smoker [facility] Start: 10-06-2023 End: 11-15-2023 Cigarettes smoked current (pack per day) - Reported 0.5 [facility] Start: 10-06-2023 Tobacco use and exposure Smokeless tobacco non-user [facility] Start: 06-26-2024 End: 11-15-2024 Alcoholic beverage intake Ex-drinker (finding) [facility] Within the last year , have you been afraid of your partner or ex-partner? Patient declined [facility] Start: 1980 Sex assigned at Not on file [facility] Start: 12-19-2024 End: 01-12-2025 Sex Female (finding) [facility] Goals Date Patient Goal Desired Activity /State Clinical Notes 06-01-2022 to 01-11-2025 Note Date & Type Note Facility 01-11-2025 Evaluation note Diagnosis Onset Date Resolution Contusion of left wrist acute January 11, 2025 1:00pm First degree burn of left wrist acute January 11, 2025 1:00pm [facility] Work Phone: 1(307) 812-258202-19-2025 [place] [address] Colonoscopy Procedure Report Signed Patient: Roselia Lo MR #: [id number] : 1980 Acct:[id number] Age/Sex: 44 / F Adm Date: 5 Loc: Room: Type: [facility] Attending Dr: Ángela Bennett MD Copies to: MD Ainsley Justice NP-C~ Colonoscopy Date/Provider 12/19/2024 Ángela Bennett MD Colonoscopy Findings: Procedure: Colonoscopy with polypectomy Indication: 44-year-old female with history of recurrent diverticulitis here fordiagnostic colonoscopy Pre-operative diagnosis: History of recurrent diverticulitis Post-operative diagnosis: A colonic polyp, diverticulosis, internal hemorrhoids. Sedation: propofol per anesthesia dept O2 oximetry, hemodynamic monitoring was performed pre, during, and post procedure. Patient was identified, H&P completed, patient was given full explanation of the procedure as well as associatedrisks and written consent wasobtained prior to procedure. Patient expressed complete understanding of the procedure as well as alternatives to the procedure and to anesthesia and agreed to proceed with the procedure as indicated. Patient was immediately reassessed prior to IV sedation. Under IV sedation, patient was placed in the left lateral decubitus position. Digital rectal exam was performed and normal. Colonoscope was inserted and passed proximally to the cecum, which was identified by the ileocecal valve, appendiceal orifice and cecal floor. Colonoscope was slowly withdrawnwith the findings as below. [place] bowel prep score was good. Findings: Cecum: Normal. Ascending colon: Normal. Hepatic flexure: Normal. Transverse colon: Normal. Splenic flexure: Normal. Descending colon: Few diverticula noted. A 6 mm polyp removed using cold snare. Sigmoid colon: Diverticulosis. Rectum: Normal. Retroflexed views: Rectum did show internal hemorrhoids. Biopsy taken: No Complications: None EBL: None Recommendations: -Repeat colonoscopy based on polyp pathology -Follow up pathology Following a period of recovery, patient was seen and given full explanation of the procedure. Patient tolerated the procedure well and will be discharged in satisfactory, stable condition. Ángela Bennett M.D. Documented By: Ángela Bennett MD 12/19/24 1238 Signed By: 12/19/24 1239 [facility]02-19-2025 [place] [address] Gastroenterology H&P Signed Patient: Roselia Lo MR #: [id number] : 1980 Acct:[id number] Age/Sex: 44 / F Adm Date: 5 Loc: Room: Type: [facility] Attending Dr: Ángela Bennett MD Copies to: MD Ainsley Justice NP-C~ Date of Service: 12/19/2024 HISTORY & PHYSICAL: Patient's history with special attention to the cardiovascular, pulmonary systems and the current problem was reviewed with the patient immediately prior to the procedure. Present medications and doses reviewed in the EMR. Allergies and pertinent laboratory tests were also re viewedat this time in the EMR. The physical examination, as below, was then performed. Indication, assessment and HPI: 44-year-old female with history of recurrent diverticulitis here for diagnostic colonoscopy Family history of GI malignancy? No PHYSICAL EXAMINATION General appearance: NAD Skin: No jaundice Head: NC/AT Eyes: Anicteric Neck: Supple Lungs: Normal respiratory effort, no use of accessory muscles Abdomen: nondistended Neuro: Ox3. REVIEW OF SYSTEMS Constitutional: Denies malaise, fevers Cardiovascular: Denies chest pain, palpitations Respiratory: Denies shortness of breath, wheezing Gastrointestinal: As per HPI Genitourinary: Denies dysuria, polyuria Musculoskeletal: Denies joint swelling, joint stiffness Neurological: Denies confusion, numbness, tingling Endocrine: Denies fatigue Written informed consent obtained from the patient. Risks (including but not limited to perforation, infection, bloating, bleeding, need for emergent surgeryand loss of life), benefits and alternatives explained and questions answered. The patient verbalized understanding. Based on history patient is an appropriate candidate for the procedure. Ángela Bennett M.D. Documented By: Ángela Bennett MD 12/19/24 1237 Signed By: 12/19/24 1238 [facility]01-16-2025 History of Present illness Narrative * Ainsley Sellers NP - 11/15/2024 9:37 AM ESTAssociated Problem(s): Current moderate episode of major depressive disorder without prior episode (HCC) (CMS/HCC) Currently taking fluoxetine at 40mg daily, xanax prn Home and work stress Add zyprexa at 2.5mg at bed time may help with sleep, as well as anxiety and depression * DANIEL HARTMANN - 11/15/2024 9:00 AM EST Colonoscopy is scheduled dec 19 Anxiety is getting worse * Ainsley Sellers NP - 11/15/2024 9:00 AM EST Images from the original note were not included. Roselia Lo is a 44 y.o. female presents with chief complaint of Anxiety HPI: No abd sxs at this time, scheduled for colonoscopy 12/25 Anxiety Symptoms include decreased concentration, depressed mood, excessive worry, insomnia, irritability, muscle tension, nervous/anxious behavior and restlessness. Patient reports no chest pain, dizziness,nausea, palpitations, shortness of breath or suicidal ideas. Symptoms occur constantly. The severity of symptoms is severe. The quality of sleep is fair. Her past medical history is significant for anxiety/panic attacks. There is no history of chronic lung disease or hyperthyroidism. Compliance with medications is 76-100%. Depression Visit Type: initial Onset of symptoms: at an unknown time Progression since onset: gradually worsening Patient presents with the following symptoms: anhedonia, decreased concentration, depressed mood, excessive worry, fatigue, insomnia, irritability, muscle tension, nervousness/anxiety and restlessness. Patient is not experiencing: palpitations, shortness of breath, suicidal ideas, suicidal planning and thoughts of . Frequency of symptoms: constantly Severity: moderate Aggravated by: family issues and work stress Sleep per night: 5 hours Sleep quality: fair Risk factors: no known risk factors Patient has a history of: anxiety/panic attacks No history of: chronic lung disease, hyperthyroidism and suicide attempt Treatment tried: benzodiazepine (SSRI) Compliance with treatment: good SUBJECTIVE: MEDICATIONS: Current Outpatient Medications Medication Instructions ALPRAZolam (XANAX) 0.25 mg, Oral, Daily PRN dicyclomine (BENTYL) 20 mg, Oral, 3 times daily PRN FLUoxetine (PROZAC) 40 mg, Daily gabapentin (Neurontin) 300 MG capsule 1 capsule, 3 times daily OLANZapine (ZYPREXA) 2.5 mg, Oral, Nightly ProAir HFA 108 (90 Base) MCG/ACT inhaler 2 puffs, Every 6 hours PRN Sutab 0726-282-190 MG tablet TAKE 12 TABLETS BY MOUTH TWICE DAILY FOR 1 DAY. TAKE FIRST DOSE AT 3 PM THE DAY BEFORE COLONOSCOPY AND SECOND DOSE AT 9 PM EVENING BEFORE traZODone (DESYREL) 50 mg, Oral, Nightly ALLERGIES: Allergies Allergen Reactions Codeine Sulfate [Codeine] Hives and Hallucinations Benadryl [Diphenhydramine] Rash and Hallucinations REVIEW OF SYMPTOMS: Review of Systems Constitutional: Positive for irritability. Negative for appetite change, chills and fever. HENT: Negative for congestion, ear pain and sore throat. Eyes: Negative for pain, discharge, redness and visual disturbance. Respiratory: Negative for cough, shortness of breath and wheezing. Cardiovascular: Negative for chest pain, palpitations and leg swelling. Gastrointestinal: Positive for abdominal pain. Negative for blood in stool, constipation, diarrhea,nausea and vomiting. Genitourinary: Negative for difficulty urinating, dysuria and frequency. Musculoskeletal: Positive for back pain. Negative for arthralgias, joint swelling and myalgias. Skin: Negative for rash and wound. Neurological: Negative for dizziness, tremors, seizures, syncope and headaches. Psychiatric/Behavioral: Positive for decreased concentration, depression and sleep disturbance. Negative for behavioral problems, self-injury and suicidal ideas. The patient is nervous/anxious and has insomnia. Hematological: Does not bruise/bleed easily. Endocrine: Negative [...] in her sister. OBJECTIVE: Visit Vitals BP 110/78 (BP Location: Left arm, Patient Position: Sitting, BP Cuff Size: Adult long) Pulse 91 Temp 98.8 F (Temporal) Resp 20 Ht 5' 3 Wt 196 lb 3.2 oz SpO2 97% BMI 34.76 kg/m Smoking Status Every Day BSA 1.99 m Physical Exam Vitals and nursing note [...] normal. Breath sounds: Normal breath sounds. No wheezing or rales. Abdominal: General: Bowel sounds are normal. There is no distension. Palpations: Abdomen is soft. There is no mass. Tenderness: There is no abdominal tenderness. Musculoskeletal: General: Normal range of motion. Cervical back: Normal range of motion and neck supple. Right lower leg: No edema. Left lower leg: No edema. Skin: General: Skin is warm and dry. Capillary Refill: Capillary refill takes 2 to 3 seconds. Findings: No rash. Neurological: General: No focal deficit present. Mental Status: She is alert and oriented to person, place, and time. Psychiatric: Mood and Affect: Mood normal. Behavior: Behavior normal. Thought Content: Thought content normal. Judgment: Judgment normal. ASSESSMENT AND PLAN: Follow up in about 6 weeks (around 12/27/2024) for Recheck. Problem List Items Addressed This Visit Anxiety Taking fluoxetine and prn dose of xanax CRISTAL 7 score=19 PHQ 9 score=19 Add 2.5mg zyprexa daily Fu in 6 weeks Take medication only as directed. If any suicidal thoughts, thoughts of hurting others, or hallucinations contact the office or proceed to the Emergency Room for mental health evaluation. Medication may cause dry mouth, dizziness, and in some cases worsening in depression symptoms. Please contact the office if these occur. Relevant Medications OLANZapine (ZyPREXA) 2.5 MG tablet Obesity (BMI 30-39.9) - Primary Discussed with patient their BMI (actual, verses recommended). We have also discussed lifestyle modifications: attempts to perform physical activity as chronic conditions allow, also to monitor dietary intake: increasing protein/fruits/veggies and lowering carb intake (unless contraindicated). Limit sodas, juices, and sugary drinks. Tobacco user The patient has been advised of the risks of continued smoking: stroke, OH, all forms of cancer, lung disease, and . Options for quitting smoking include: cold turkey, hypnosis, acupuncture, nicotine replacement meds(gum, lozenges, and patches), Buproprion, and Varenicline. At this time pt is encouraged to evaluate their goals for wanting to quit smoking, and reach out toprovider when ready to start this process Diverticulitis Last appt re treatment with cipro and flagyl and a referral to GI Has colonoscopy scheduled mid 2024 Current moderate episode of major depressive disorder without prior episode (HCC) (CMS/HCC) Currently taking fluoxetine at 40mg daily, xanax prn Home and work stress Add zyprexa at 2.5mg at bed time may help with sleep, as well as anxiety and depression Relevant Medications OLANZapine (ZyPREXA) 2.5 MG tablet * Ainsley Sellers NP - 11/15/2024 6:29 AM ESTAssociated Problem(s): Tobacco user The patient has been advised of the risks of continued smoking: stroke, OH, all forms of cancer, lung disease, and . Options for quitting smoking include: cold turkey, hypnosis, acupuncture, nicotine replacement meds(gum, lozenges, and patches), Buproprion, and Varenicline. At this time pt is encouraged to evaluate their goals for wanting to quit smoking, and reach out toprovider when ready to start this process * Ainsley Sellers NP - 11/15/2024 6:26 AM ESTAssociated Problem(s): Anxiety Taking fluoxetine and prn dose of xanax CRISTAL 7 score=19 PHQ 9 score=19 Add 2.5mg zyprexa daily Fu in 6 weeks Take medication only as directed. If any suicidal thoughts, thoughts of hurting others, or hallucinations contact the office or proceed to the Emergency Room for mental health evaluation. Medication may cause dry mouth, dizziness, and in some cases worsening in depression symptoms. Please contact the office if these occur. * Ainsley Sellers NP - 11/15/2024 6:26 AM ESTAssociated Problem(s): Diverticulitis Last appt re treatment with cipro and flagyl and a referral to GI Has colonoscopy scheduled mid 2024 * Ainsley Sellers NP - 11/15/2024 6:25 AM ESTAssociated Problem(s): Obesity (BMI 30-39.9) Discussed with patient their BMI (actual, verses recommended). We have also discussed lifestyle modifications: attempts to perform physical activity as chronic conditions allow, also to monitor dietary intake: increasing protein/fruits/veggies and lowering carb intake (unless contraindicated). Limit sodas, juices, and sugary drinks. documented in this encounterNortheast [facility] [id number] Instructions* Patient Instructions* Ainsley Sellers NP - 11/15/2024 9:00 AM EST Add olanzapine 2.5mg at bedtime. Take medication only as directed. If any suicidal thoughts, thoughts of hurting others, or hallucinations contact the office or proceed to the Emergency Room for mental health evaluation. Medication may cause dry mouth, dizziness, and in some cases worsening in depression symptoms. Please contact the office if these occur. documented in this encounterNortheast [facility] Health [id number] History of Present illness Narrative* DANIEL HARTMANN - 11/01/2024 1:00 PM EST Pt started feeling sick about 10 days ago s/s started with having a sharp pain in the left side. Nausea and diarrhea happened a few days before the pain however that has gone away Currently pt is having some left side to lower back pain. Throbbing and dull pain. Pt believes she may be getting a yeast infection with the atb she was on * Ainsley Sellers NP - 11/01/2024 1:00 PM EST Images from the original note were not included. Roselia Lo is a 44 y.o. female presents with chief complaint of Back Pain HPI: Here for ER fu, seen in [facility] ER on 10/22/24: Abd pain and left sided flank pain, had CT scan abd/pelvis shows diverticulitis, was sent home on atb Of note also has ovarian cyst right side with measures 5cm in diameter LLQ: sharp pain, intermittent, lower back feels constant dull ache, not the same as her HNP pain No dysuria, no fever, +nausea, no vomiting, bowel movements: diarrhea consistency no bloody stools. No cauda equina, no lumbar pain with movement, more with lying down and resting LLQ pain: worse if eats something SUBJECTIVE: MEDICATIONS: Current Outpatient Medications Medication Instructions ALPRAZolam (XANAX) 0.25 mg, Oral, Daily PRN amoxicillin-clavulanate (Augmentin) 875-125 MG tablet 875 mg, Oral, 2 times daily ciprofloxacin (CIPRO) 500 mg, Oral, 2 times daily dicyclomine (BENTYL) 20 mg, Oral, 3 times daily PRN FLUoxetine (PROZAC) 40 mg, Daily gabapentin (Neurontin) 300 MG capsule 1 capsule, Oral, 3 times daily metroNIDAZOLE (FLAGYL) 500 mg, Oral, Every 8 hours, No alcohol use while taking ProAir HFA 108 (90 Base) MCG/ACT inhaler 2 puffs, Inhalation, Every 6 hours PRN traZODone (DESYREL) 50 mg, Oral, [...] cough, shortness of breath and wheezing. Cardiovascular: Negative for chest pain, palpitations and leg swelling. Gastrointestinal: Positive for abdominal pain and diarrhea. Negative for blood in stool, constipation, nausea and vomiting. Genitourinary: Negative for difficulty urinating, dysuria and frequency. Musculoskeletal: Positive for back pain. Negative for arthralgias, joint swelling and myalgias. Skin: Negative for rash and wound. Neurological: Negative for dizziness, tremors, seizures, syncope and headaches. Psychiatric/Behavioral: Negative for behavioral problems, self-injury and suicidal ideas. The patient is nervous/anxious. Hematological: Does not bruise/bleed easily. Endocrine: [...] in her sister. OBJECTIVE: Visit Vitals BP 102/68 (BP Location: Left arm, Patient Position: Sitting, BP Cuff Size: Adult long) Pulse 104 Temp 98.5 F (Temporal) Resp 18 Wt 190 lb 9.6 oz SpO2 97% BMI 33.76 kg/m Smoking Status Every Day BSA 1.96 m Physical Exam Vitals and nursing note [...] wheezing, rhonchi or rales. Chest: Chest wall: No tenderness. Abdominal: General: Bowel sounds are normal. There is no distension. Palpations: Abdomen is soft. There is no mass. Tenderness: There is no abdominal tenderness (generalized tenderness LLQ,). There is no guarding orrebound. Musculoskeletal: Cervical back: Normal range of motion and neck supple. Right lower leg: No edema. Left lower leg: No edema. Comments: No point tenderness to lumbar region -SLR X2, DTR's 2+ bilat patellar/achilles MMT 5/5 bilat LE Near full ROM lumbar spine Skin: General: Skin is warm and dry. Capillary Refill: Capillary refill takes 2 to 3 seconds. Findings: No rash. Neurological: General: No focal deficit present. Mental Status: She is alert and oriented to person, place, and time. Psychiatric: Mood and Affect: Mood normal. Behavior: Behavior normal. Thought Content: Thought content normal. Judgment: Judgment normal. ASSESSMENT AND PLAN: Follow up in about 2 weeks (around 11/15/2024) for Recheck. Problem List Items Addressed This Visit Obesity (BMI 30-39.9) Discussed with patient their BMI (actual, verses recommended). We have also discussed lifestyle modifications: attempts to perform physical activity as chronic conditions allow, also to monitor dietary intake: increasing protein/fruits/veggies and lowering carb intake (unless contraindicated). Limit sodas, juices, and sugary drinks. Tobacco user The patient has been advised of the risks of continued smoking: stroke, OH, all forms of cancer, lung disease, and . Options for quitting smoking include: cold turkey, hypnosis, acupuncture, nicotine replacement meds(gum, lozenges, and patches), Buproprion, and Varenicline. At this time pt is encouraged to evaluate their goals for wanting to quit smoking, and reach out toprovider when ready to start this process Diverticulitis - Primary Recent ER visit to [facility], see CT scan Will treat with cipro and flagyl and more dicyclomine Refer to GI will need colonoscopy when they feel is ok after flare Fu in 2 weeks recheck, sooner if worsening in symptoms Relevant Medications ciprofloxacin (Cipro) 500 MG tablet metroNIDAZOLE (Flagyl) 500 MG tablet dicyclomine (Bentyl) 20 MG tablet Other Relevant Orders Ambulatory referral to Gastroenterology Encounter for screening mammogram for malignant neoplasm of breast Was ordered 02/2024, pt non compliant with completing this Will re order for 2024, explain importance of getting completed Relevant Orders Bilateral screening mammogram Cyst of right ovary Noted on CT scan from 10/23 [facility] ER Will need US and fu with [employer], will refer her back to [employer] Relevant Orders Ambulatory referral to Obstetrics / Gynecology * Aisnley Sellers NP - 11/01/2024 7:07 AM ESTAssociated Problem(s): Encounter for screening mammogram for malignant neoplasm of breast Was ordered 02/2024, pt non compliant with completing this Will re order for 2024, explain importance of getting completed * Ainsley Sellers NP - 11/01/2024 7:06 AM ESTAssociated Problem(s): Cyst of right ovary Noted on CT scan from 10/23 [facility] ER Will need US and fu with [employer], will refer her back to [employer] * Ainsley Sellers NP - 11/01/2024 7:06 AM ESTAssociated Problem(s): Diverticulitis Recent ER visit to [facility], see CT scan Will treat with cipro and flagyl and more dicyclomine Refer to GI will need colonoscopy when they feel is ok after flare Fu in 2 weeks recheck, sooner if worsening in symptoms * Ainsley Sellers NP - 11/01/2024 7:05 AM ESTAssociated Problem(s): Obesity (BMI 30-39.9) Discussed with patient their BMI (actual, verses recommended). We have also discussed lifestyle modifications: attempts to perform physical activity as chronic conditions allow, also to monitor dietary intake: increasing protein/fruits/veggies and lowering carb intake (unless contraindicated). Limit sodas, juices, and sugary drinks. * Ainsley Sellers NP - 11/01/2024 7:05 AM ESTAssociated Problem(s): Tobacco user The patient has been advised of the risks of continued smoking: stroke, OH, all forms of cancer, lung disease, and . Options for quitting smoking include: cold turkey, hypnosis, acupuncture, nicotine replacement meds(gum, lozenges, and patches), Buproprion, and Varenicline. At this time pt is encouraged to evaluate their goals for wanting to quit smoking, and reach out toprovider when ready to start this process documented in this [facility]01-02-2025 Instructions* Patient Instructions* Ainsley Sellers NP - 11/01/2024 1:00 PM EST Cipro (twice a day) and metrondiazole (every 8 hours ) for 10 days NO alcohol use while taking Will send to Gastroenterology in [place], they should call you Will send to Gynecology Ainsley Phillips, not sure if [place] or [place] office documented in this [facility]12-24-2024 Telephone encounter Note* Telephone Encounter - Ainsley Sellers NP - 10/23/2024 6:12 AM EST Please contact pt for an ER fu and schedule [place] [facility] [id number] Miscellaneous Notes* Telephone Encounter - Ainsley Sellers NP - 10/23/2024 6:12 AM EST Please contact pt for an ER fu and schedule [place] documented in this [facility]09-25-2024 History of Present illness Narrative* Ainsley Sellers NP - 07/25/2024 6:28 PM EDTAssociated Problem(s): Acute urinary retention Only a few drops of urine in office: clear, yellow, mod blood, sm leuk, all others normal Will refer to [facility] ER for evaluation: differentials: UTI, KRYS, pyleo, urinary retention * Ainsley Sellers NP - 07/25/2024 6:26 PM EDTAssociated Problem(s): Anxiety Will remain off fluoxetine med for now use benzo prn Will monitor and if worsening in anxiety, will trial different med for anxiety * DANIEL HARTMANN - 07/25/2024 6:00 PM EDT Back stomach pain * Ainsley Sellers NP - 07/25/2024 6:00 PM EDT Images from the original note were not [...] post op meds at the same time. Ultimatelythese nightmares have stopped, she is feeling ok from an anxiety and depression stand point and would like to remain off the med. She is also still taking her trazodone for sleep without difficulty Her main complaint today is anuria for 25 hours, feels urge to urinate, no fever, chills, is havingabd pain and low back pain, tried some [...] leuk, all others normal Will refer to [facility] ER for evaluation: differentials: UTI, KRYS, pyleo, urinary retention documented in this encounterNort[facility] [id number] History of Present illness Narrative* Ainsley Sellers NP - 06/26/2024 4:26 PM EDTAssociated Problem(s): Rib pain on right side Add naproxen 500mg BID with food Check xray rib study Further treatment as per xray result * DANIEL HARTMANN - 06/26/2024 4:00 PM EDT Pain on the right side/rib area for 7 days now. Pain is constant with pain level base at 6 and willrandomly spike to a pain level of 10. Area is very tender to the touch. * Ainsleyjoaquina Sellers, [employer] TECHNICIAN - 06/26/2024 4:00 PM EDT Images from the original note were not [...] right w chest anteroposterior documented in this encounterNortheast [facility] [id number] Evaluation note* Encounter Date Diagnosis Assessment Notes Treatment Notes Treatment Clinical Notes Dec, Contact with and (suspected) exposure [...] as decrease in urine, dry mouth, etc [facility] Other 08-02-2022 Evaluation note* Encounter Date Diagnosis [...] action if you have chronic health conditions. [facility] Other Evaluation noteNo assessment information available [facility] Work Phone: Evaluation note* Diagnosis Onset Date Resolution Status 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 acute [facility] Work Phone: Evaluation note* Diagnosis Onset Date Resolution Status 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 acute 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 acute [facility] Work Phone: Evaluation note* Diagnosis Anxiety Anxiety state, unspecified [facility] Diagnosis Rib pain on right side Anxiety Anxiety state, unspecified [facility] Diagnosis Rib pain on right side- Primary Obesity (BMI 30-39.9) [facility]* Diagnosis Anxiety- Primary Anxiety state, unspecified Obesity (BMI 30-39.9) Rib pain on right side Acute urinary retention [facility]* Diagnosis Right leg pain- Primary Pain in soft tissues of limb Stage 2 chronic kidney disease Peripheral polyneuropathy Anxiety- Primary Anxiety state, unspecified Obesity (BMI 30-39.9) Tobacco user Tobacco use disorder Pain of right lower extremity Bulging of lumbar intervertebral disc- Primary Obesity (BMI 30-39.9) Degenerative disc disease at L5-S1 level Anxiety- Primary Anxiety state, unspecified Degenerative disc disease at L5-S1 level Obesity (BMI 30-39.9) Encounter for screening mammogram for malignant neoplasm of breast- Primary Diverticulitis Diverticulitis of colon (without mention of hemorrhage) Obesity (BMI 30-39.9) Diverticulitis- Primary Diverticulitis of colon (without mention of hemorrhage) Obesity (BMI 30-39.9) Displacement of lumbar intervertebral disc with radiculopathy Anxiety Anxiety state, unspecified Tobacco user Tobacco use disorder Primary insomnia Persistent disorder of initiating or maintaining sleep Anxiety- Primary Anxiety state, unspecified Obesity (BMI 30-39.9) Tobacco user Tobacco use disorder Rib pain on right side- Primary Obesity (BMI 30-39.9) Anxiety- Primary Anxiety state, unspecified Obesity (BMI 30-39.9) Rib pain on right side Acute urinary retention Diverticulitis- Primary Diverticulitis of colon (without mention of hemorrhage) Tobacco user Tobacco use disorder Obesity (BMI 30-39.9) Cyst of right ovary Other and unspecified ovarian cyst Encounter for screening mammogram for malignant neoplasm of breast [facility] Diagnosis Right leg pain- Primary Pain in soft tissues of limb Stage 2 chronic kidney disease Peripheral polyneuropathy Anxiety- Primary Anxiety state, unspecified Obesity (BMI 30-39.9) Tobacco user Tobacco use disorder Pain of right lower extremity Bulging of lumbar intervertebral disc- Primary Obesity (BMI 30-39.9) Degenerative disc disease at L5-S1 level Anxiety- Primary Anxiety state, unspecified Degenerative disc disease at L5-S1 level Obesity (BMI 30-39.9) Encounter for screening mammogram for malignant neoplasm of breast- Primary Diverticulitis Diverticulitis of colon (without mention of hemorrhage) Obesity (BMI 30-39.9) Diverticulitis- Primary Diverticulitis of colon (without mention of hemorrhage) Obesity (BMI 30-39.9) Displacement of lumbar intervertebral disc with radiculopathy Anxiety Anxiety state, unspecified Tobacco user Tobacco use disorder Primary insomnia Persistent disorder of initiating or maintaining sleep Anxiety- Primary Anxiety state, unspecified Obesity (BMI 30-39.9) Tobacco user Tobacco use disorder Rib pain on right side- Primary Obesity (BMI 30-39.9) Anxiety- Primary Anxiety state, unspecified Obesity (BMI 30-39.9) Rib pain on right side Acute urinary retention Diverticulitis- Primary Diverticulitis of colon (without mention of hemorrhage) Tobacco user Tobacco use disorder Obesity (BMI 30-39.9) Cyst of right ovary Other and unspecified ovarian cyst Encounter for screening mammogram for malignant neoplasm of breast Anxiety Anxiety state, unspecified [facility] Diagnosis Right leg pain- Primary Pain in soft tissues of limb Stage 2 chronic kidney disease Peripheral polyneuropathy Anxiety- Primary Anxiety state, unspecified Obesity (BMI 30-39.9) Tobacco user Tobacco use disorder Pain of right lower extremity Bulging of lumbar intervertebral disc- Primary Obesity (BMI 30-39.9) Degenerative disc disease at L5-S1 level Anxiety- Primary Anxiety state, unspecified Degenerative disc disease at L5-S1 level Obesity (BMI 30-39.9) Encounter for screening mammogram for malignant neoplasm of breast- Primary Diverticulitis Diverticulitis of colon (without mention of hemorrhage) Obesity (BMI 30-39.9) Diverticulitis- Primary Diverticulitis of colon (without mention of hemorrhage) Obesity (BMI 30-39.9) Displacement of lumbar intervertebral disc with radiculopathy Anxiety Anxiety state, unspecified Tobacco user Tobacco use disorder Primary insomnia Persistent disorder of initiating or maintaining sleep Anxiety- Primary Anxiety state, unspecified Obesity (BMI 30-39.9) Tobacco user Tobacco use disorder Rib pain on right side- Primary Obesity (BMI 30-39.9) Anxiety- Primary Anxiety state, unspecified Obesity (BMI 30-39.9) Rib pain on right side Acute urinary retention Diverticulitis- Primary Diverticulitis of colon (without mention of hemorrhage) Tobacco user Tobacco use disorder Obesity (BMI 30-39.9) Cyst of right ovary Other and unspecified ovarian cyst Encounter for screening mammogram for malignant neoplasm of breast Anxiety- Primary Anxiety state, unspecified Obesity (BMI 30-39.9) Diverticulitis Diverticulitis of colon (without mention of hemorrhage) Tobacco user Tobacco use disorder Current moderate episode of major depressive disorder without prior episode (HCC) ([facility]/HCC) documented in this encounter [facility]* Diagnosis Right leg pain- Primary Pain in soft tissues of limb Stage 2 chronic kidney disease Peripheral polyneuropathy Anxiety- Primary Anxiety state, unspecified Obesity (BMI 30-39.9) Tobacco user Tobacco use disorder Pain of right lower extremity Bulging of lumbar intervertebral disc- Primary Obesity (BMI 30-39.9) Degenerative disc disease at L5-S1 level Anxiety- Primary Anxiety state, unspecified Degenerative disc disease at L5-S1 level Obesity (BMI 30-39.9) Encounter for screening mammogram for malignant neoplasm of breast- Primary Diverticulitis Diverticulitis of colon (without mention of hemorrhage) Obesity (BMI 30-39.9) Diverticulitis- Primary Diverticulitis of colon (without mention of hemorrhage) Obesity (BMI 30-39.9) Displacement of lumbar intervertebral disc with radiculopathy Anxiety Anxiety state, unspecified Tobacco user Tobacco use disorder Primary insomnia Persistent disorder of initiating or maintaining sleep Anxiety- Primary Anxiety state, unspecified Obesity (BMI 30-39.9) Tobacco user Tobacco use disorder Rib pain on right side- Primary Obesity (BMI 30-39.9) Anxiety- Primary Anxiety state, unspecified Obesity (BMI 30-39.9) Rib pain on right side Acute urinary retention Diverticulitis- Primary Diverticulitis of colon (without mention of hemorrhage) Tobacco user Tobacco use disorder Obesity (BMI 30-39.9) Cyst of right ovary Other and unspecified ovarian cyst Encounter for screening mammogram for malignant neoplasm of breast Anxiety- Primary Anxiety state, unspecified Obesity (BMI 30-39.9) Diverticulitis Diverticulitis of colon (without mention of hemorrhage) Tobacco user Tobacco use disorder Current moderate episode of major depressive disorder without prior episode (HCC) (CMS/HCC) Generalized abdominal pain- Primary Abdominal pain, generalized documented in this encounter [facility] Author Ángela Bennett [facility] Note Date/Time December 19, 2024 12:38pm [facility] [address] [place] [address] Gastroenterology H&P Signed Patient: Roselia Lo MR #: [id number] : 1980 Acct:[id number] Age/Sex: 44 / F Adm Date: 5 Loc: Room: Type: [facility] Attending Dr: Ángela Bennett MD Copies to: MD Ainsley Justice NP-C~ Date of Service: 12/19/2024 HISTORY & PHYSICAL: Patient's history with special attention to the cardiovascular, pulmonary systems and the current problem was reviewed with the patient immediately prior to the procedure. Present medications and doses reviewed in the EMR. Allergies and pertinent laboratory tests were also reviewedat this time in the EMR. The physical examination, as below, was then performed. Indication, assessment and HPI: 44-year-old female with history of recurrent diverticulitis here for diagnostic colonoscopy Family history of GI malignancy? No PHYSICAL EXAMINATION General appearance: NAD Skin: No jaundice Head: NC/AT Eyes: Anicteric Neck: Supple Lungs: Normal respiratory effort, no use of accessory muscles Abdomen: nondistended Neuro: Ox3. REVIEW OF SYSTEMS Constitutional: Denies malaise, fevers Cardiovascular: Denies chest pain, palpitations Respiratory: Denies shortness of breath, wheezing Gastrointestinal: As per HPI Genitourinary: Denies dysuria, polyuria Musculoskeletal: Denies joint swelling, joint stiffness Neurological: Denies confusion, numbness, tingling Endocrine: Denies fatigue Written informed consent obtained from the patient. Risks (including but not limited to perforation, infection, bloating, bleeding, need for emergent surgeryand loss of life), benefits and alternatives explained and questions answered. The patient verbalized understanding. Based on history patient is an appropriate candidate for the procedure. Ángela Bennett M.D. Documented By: Ángela Bennett MD 12/19/24 1237 Signed By: <Electronically signed by Ángela Bennett MD> 12/19/24 1238 [facility] Work Phone: [facility] general Narrative - Reported* Type Description Date Medical History Anxiety Surgical History C section x 3 Surgical History rotator cuff Surgical History cholecystectomy Hospitalization History Child [facility] Other [facility] general Narrative - Reported* Type Description Date Medical History Anxiety Medical History Neuropathy Surgical History C section x 3 Surgical History rotator cuff Surgical History cholecystectomy Surgical History hip decompression left Hospitalization History [facility] Other Hospital Discharge instructions Additional Instructions DISCHARGE [...] appointment to see your physician in two weeks.[facility] Work Phone: Summary Purpose Family History No Family History Records Found Relationship Condition Age at Onset Recorded Date/T nusrat father Diabetes mellitus Unknown Heart disease Unknown Advance Directives No Advanced Directives Records Found Advance Directive Response Recorded Date/ Time Advance Directives No December 31 3:00pm Advance Directive Response Recorded Date/ Time Advance Directives No December 31 2:00pm Chief Complaint and Reason for Visit Chief [...] ar intervertebral disc with radiculopathy Chief Complaint Admit Date diverticulitis December 19, 2024 11:00am diverticulitis December 19, 2024 12:37pm Chief Complaint Admit Date diverticulitis December 19, 2024 11:00am diverticulitis December 19, 2024 12:37pm Amb Documentation December 21, 2024 1:36pm left wrist pain January 11, 2025 1:0 0pm Reason for Visit Admit Date Contusion of left wrist January 11, 2025 1:00pm First degree burn of left wrist January 112024 1:00pm Additional Source Comments INFORMATION SOURCE (unrecogn ized section and content) DATE CREATED AUTHOR 02/18/2021 [facility] DATE CREATED AUTHOR AUTHOR'S ORGANIZ ATION 06/01/2022 [facility] DATE CREATED AUTHOR AUTHOR'S ORGANIZ ATION 11/18/2024 [facility] DATE CREATED AUTHOR AUTHOR'S ORGANIZ ATION 12/08/2024 [facility] DATE CREATED AUTHOR AUTHOR'S ORGANIZ ATION 12/11/2024 [facility] DATE CREATED AUTHOR AUTHOR'S ORGANIZ ATION 01/21/2025 [facility] REASON FOR VISIT (unrecogniz ed section and content) Reason Comments Med Refill Reason Comments Back Pain Reason Comments Anxiety Care Teams (unrecognized sec tion and content) Team Status: Active Member Role Status Dates [...] May 28, 2024 End: May 28, 2024 Paper Cutter Operator Relationship Specialty Start Date End Date Quentin Dawn MD [address] [place] [phone] PCP - General Family Medicine 11/17/23 Ainsley Sellers NP [address] [place] [phone] Nurse Practitioner Family Medicine 11/17/23 Paper Cutter Operator Relationship Specialty Start Date End Date Quentin Dawn MD [address] [place] [phone] PCP - General Family Medicine 11/17/23 Ainsley Sellers NP [address] [place] [address] Nurse Practitioner Family Medicine 11/17/23 Paper Cutter Operator Relationship Specialty Start Date End Date Quentin Dawn MD [address] [place] [phone] PCP - General Family Medicine 11/17/23 Ainsley Sellers NP [address] [place] [phone] Nurse Practitioner Family Medicine 11/17/23 Paper Cutter Operator Relationship Specialty Start Date End Date Quentin Dawn MD [address] [place] [phone] PCP - General Family Medicine 11/17/23 Ainsley Sellers NP [address] [place] [address] Nurse Practitioner Family Medicine 11/17/23 Paper Cutter Operator Relationship Specialty Start Date End Date Quentin Dawn MD [address] [place] [address] PCP - General Family Medicine 11/17/23 Ainsley Sellers NP [address] [place] [phone] Nurse Practitioner Family Medicine 11/17/23 Paper Cutter Operator Relationship Specialty Start Date End Date Quentin Dawn MD [address] [place] [phone] PCP - General Family Medicine 11/17/23 Ainsley Sellers NP [address] [place] [phone] Nurse Practitioner Family Medicine 11/17/23 Paper Cutter Operator Relationship Specialty Start Date End Date Quentin Dawn MD [address] [place] [phone] PCP - General Family Medicine 11/17/23 Ainsley Sellers NP [address] [place] [phone] Nurse Practitioner Family Medicine 11/17/23 Paper Cutter Operator Relationship Specialty Start Date End Date Quentin Dawn MD [address] [place] [phone] PCP - General Family Medicine 11/17/23 Ainsley Sellers NP [address] [place] [phone] Nurse Practitioner Family Medicine 11/17/23 Paper Cutter Operator Relationship Specialty Start Date End Date Quentin Dawn MD [address] [place] [phone] PCP - General Family Medicine 11/17/23 Ainsley Sellers NP [address] [place] [phone] Nurse Practitioner Family Medicine 11/17/23 Paper Cutter Operator Relationship Specialty Start Date End Date Quentin Dawn MD [address] [place] [phone] PCP - General Family Medicine 11/17/23 Ainsley Sellers NP [address] [place] [phone] Nurse Practitioner Family Medicine 11/17/23 Paper Cutter Operator Relationship Specialty Start Date End Date Quentin Dawn MD [address] [place] [phone] PCP - General Family Medicine 11/17/23 Ainsley Sellers NP [address] [place] [phone] Nurse Practitioner Family Medicine 11/17/23 Team Status: Inactive Member Role Status Dates Ainsley Sellers Primary Care Provider Active Sta rt: December 19, 2024 End: December 19, 2024 Ángela Bennett MD Attending Provider Active Start: December 19, 2024 End: December 19, 2024 Team Status: Active Member Role Status Dates Ainsley Sellers Primary Care Provider Active Sta rt: December 19, 2024 Ángela Bennett MD Attending Provider, Other Provider Active Start: December 19, 2024 Team Status: Active Member Role Status Dates Ainsley Sellers Primary Care Provider Active Sta rt: December 21, 2024 [place] Attending Provider Active Start: 2024 Team Status: Inactive Member Role Status Dates Ainsley Vivar Verito Primary Care Provider Active Sta rt: January 11, 2025 End: January 11, 2025 Ivonne Joaquin APRN Attending Provider Active Start: January 11, 2025 End: January 11, 2025 Goals (unrecognized section and content) Goals may [...] BE BASED ON THE PRIMARY CLINICAL RECORDS. [employer] [facility] provides no warranty or guarantee of the accuracy or completeness of information in this document.
[2025-02-08 13:46] LABS: Anion Gap 13.1; BUN Creatinine Ratio 7.2; Calcium 8.8 mg/dL (8.5-10.1); Carbon Dioxide 25.2 mmol/L (21.0-32.0); Chloride 106 mmol/L (98-107); Estimated GFR (African America 56 (>=60 mL/min/1.73m^2); Estimated GFR (Non-African Ame 47 (>=60 mL/min/1.73m^2); Glucose 118 mg/dL (74-106); Potassium 4.3 mmol/L (3.5-5.1); Sodium 140 mmol/L (136-145)
== END 2025-02-08 13:22 | disposition home or self-care (01) ==
LOC: LAB 13:22
PROVIDERS: PCP Nurse Practitioner; Visit Provider Nurse Practitioner
DX: N18.31 Chronic kidney disease, stage 3a (principal)
CPT/HCPCS: 36415; 80048

== ENCOUNTER 2025-02-12 15:06 | Outpatient (OUT) | payer OTHER, SELFPAY ==
--- NOTE | 2025-02-12 15:12 | XR_ITS ---
[facility] [place] [id number] Patient Name: ROSELIA LO MRN: [id number] date: 1980 Sex: F Assigned Patient Location: [facility] Current Patient Location: [facility] Accession/Order Number: [id number] Exam Date: 02/12/2025 15:24 Report Date: 02/12/2025 15:25 At the request of: LISA KNIGHT NP Procedure: XR abdomen 1V KUB: CLINICAL INFORMATION: Left flank pain COMPARISON: CT abdomen and pelvis 10/22/2024 FINDINGS: A phlebolith is seen within the pelvis. No suspicious urinary tract calcifications. No bowel obstruction or free air. XR/XR abdomen 1V IMPRESSION: No acute process. Impression dictated by: Virginia Mahajan Jr.OLouie02/12/2025 3:25 PM Dictation Location: [place] [address] Electronically authenticated by: [id number] Y Date: 02/12/2025 15:25
== END 2025-02-12 15:07 | disposition home or self-care (01) ==
LOC: RAD 15:07
PROVIDERS: PCP Nurse Practitioner; Visit Provider Nurse Practitioner
DX: R10.13 Epigastric pain (principal)
CPT/HCPCS: 74018

== ENCOUNTER 2025-04-24 10:02 | Outpatient (OUT) | payer OTHER, SELFPAY ==
[2025-04-24 10:27] LABS: Bilirubin Urine NEGATIVE (NEGATIVE); Blood Urine TRACE-I (NEGATIVE); Clarity Urine CLEAR (CLEAR); Color Urine LT. YELLOW (YELLOW); Glucose Urine UA NEGATIVE (NEGATIVE); Ketones Urine NEGATIVE (NEGATIVE); Leukocyte Esterase Urine NEGATIVE (NEGATIVE); Nitrite Urine NEGATIVE (NEGATIVE); Protein Urine NEGATIVE (NEG/TRACE); Specific Gravity Urine 1.015 (1.005-1.025); Urobilinogen Urine 0.2 EU/dL (0.2-1.0)
[2025-04-24 10:31] LABS: Urine Microscopic Indicated YES
[2025-04-24 10:37] LABS: Bacteria Urine SMALL #/HPF (NONE SEEN); Cast Seen? NONE SEEN #/LPF (NONE SEEN); Crystals Seen? None Seen #/HPF (None Seen); Mucus Urine SMALL (NONE SEEN); Squamous Epithelial Cell Urine MODERATE #/LPF (NONE/RARE); WBC Urine 0-2 #/HPF (NONE SEEN)
[2025-04-24 10:59] LABS: Alanine Aminotransferase 27 U/L (14-59); Albumin Level 3.4 g/dL (3.4-5.0); Alkaline Phosphatase 100 U/L (46-116); Anion Gap 12.4; Aspartate Amino Transferase 15 U/L (15-37); BUN Creatinine Ratio 13.9; Bilirubin Total 0.3 mg/dL (0.2-1.0); Calcium 9.2 mg/dL (8.5-10.1); Carbon Dioxide 24.3 mmol/L (21.0-32.0); Chloride 105 mmol/L (98-107); Chol HDL Ratio 6.4; Cholesterol 236 mg/dL (<=200); Estimated GFR (African America >60 (>=60 mL/min/1.73m^2); Estimated GFR (Non-African Ame 55 (>=60 mL/min/1.73m^2); Globulin 3.3 g/dL; Glucose 109 mg/dL (74-106); HDL Cholesterol 37 mg/dL (40-60); Potassium 4.7 mmol/L (3.5-5.1); Sodium 137 mmol/L (136-145); Total Protein 6.7 g/dL (6.4-8.2); Triglycerides 130 mg/dL (<=150)
== END 2025-04-24 10:03 | disposition home or self-care (01) ==
LOC: LAB 10:04
PROVIDERS: PCP Nurse Practitioner; Visit Provider Nurse Practitioner
DX: R31.29 Other microscopic hematuria (principal); N18.31 Chronic kidney disease, stage 3a; E66.9 Obesity, unspecified; R73.09 Other abnormal glucose
CPT/HCPCS: 36415; 80053; 80061; 81001

== ENCOUNTER 2025-05-01 08:51 | Outpatient (OUT) | payer OTHER, SELFPAY ==
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
--- OUTSIDE RECORDS SUMMARY | 2025-05-01 08:54 | XMS_ITS | Encounter Summary ---
Author Organization [facility] Address [address] [place] [address] Care Team Providers Care Operations Officer Trust Department Name Role Phone Quentin Dawn MD Primary Care Provider [phone] Ainsley Sellers INSTALL AND REPAIR TECHNICIAN Unavailable [phone] Encounter Details Date Type Department Care Team ([facility] Contact Info) Description 11/01/2024 Abstract [facility] [address] [place] [address] Ainsley Sellers NP [address] [place] [address] Social History Tobacco Use Types Packs/Day Years Used Date Smoking Tobacco: Every Day Cigarettes 0.5 20 Smokeless Tobacco: Never Alcohol Use Standard Drinks/Week Comments Not Currently 0 (1 standard drink = 0.6 oz pur e alcohol) Humiliation, Afraid, Rape, and Kick questionnair e Answer Date Recorded Within the last year, have y ou been afraid of your partner or ex-partner? Patient declined 11/15/2023 Within the last year, have y ou been humiliated or emotionally abused in other ways by your partner or ex-partner? Patient declined 11/15/2023 Within the last year, have y ou been kicked, hit, slapped, or otherwise physically hurt by your partner or ex-partner? Patient declined 11/15/2023 Within the last year, have y ou been raped or forced to have any kind of sexual activity by your partner or ex-partner? Patient declined 11/15/2023 Social Connection and Isolation Panel [NHANES] A nswer Date Recorded Frequency of Communication with Friends and Fami ly Not on file 11/15/2023 Frequency of Social Gatherings with Friends and Family Not on file 11/15/2023 How often do you attend mormon or caodaism serv ices? Patient declined 11/15/2023 Do you belong to any clubs o r organizations such as mormon groups, unions, fraternal or athletic groups, or school groups? Patient declined 11/15/2023 How often do you attend meet ings of the clubs or organizations you belong to? Patient declined 11/15/2023 Are you , , di vorced, , never , or living with a partner? Patient declined 11/15/2023 AUDIT-C Answer Date Recorded Q1: How often do you have a drink containing alc ohol? Patient declined 11/15/2023 Q2: How many drinks containi ng alcohol do you have on a typical day when you are drinking? Patient declined 11/15/2023 Q3: How often do you have si x or more drinks on one occasion? Patient declined 11/15/2023 Overall Financial Resource Strain (CARDIA) Answe r Date Recorded How hard is it for you to pa y for the very basics like food, housing, medical care, and heating? Patient declined 11/15/2023 PHQ-2 Answer Date Recorded Patient Health Questionnaire-2 Score 0 03/08/2024 Exercise Vital Sign Answer Date Recorde d On average, how many days pe r week do you engage in moderate to strenuous exercise (like a brisk walk)? Patient declined On average, how many minutes do you engage in exercise at this level? Patient declined 11/15/2023 Hunger Vital Sign Answer Date Recorded Within the past 12 months, y ou worried that your food would run out before you got the money to buy more. Patient declined Within the past 12 months, t he food you bought just didn't last and you didn't have money to get more. Patient declined PRAPARE - Transportation Answer Date Re corded In the past 12 months, has l ack of transportation kept you from medical appointments or from getting medications? Patient declined 11/15/2023 In the past 12 months, has l ack of transportation kept you from meetings, work, or from getting things needed for daily living? Patient declined 11/15/2023 Housing Stability Vital Sign Answer Neto e Recorded In the last 12 months, was t here a time when you were not able to pay the mortgage or rent on time? Patient refused 11/15/19 24 Number of Places Lived in the Last Year Not on f ile 11/15/2023 In the last 12 months, was t here a time when you did not have a steady place to sleep or slept in a half-way (including now)? Patient refused 11/15/2023 Comments Unknown Sex and Gender Information Value Date Recorded Sex Assigned at Not on file Legal Sex Female 7:24 PM EDT Gender Identity Not on file Sexual Orientation Not on file documented as of this encounter Plan of Treatment Upcoming Encounters Date Type Department Care Team (Late st Contact Info) Description 05/28/2025 2:40 PM EDT Office Visit [facility] [address] [place] [address] Ainsley Sellers NP [address] [place] [phone] 06/12/2025 9:00 AM EDT Office Visit [facility] [address] [place] [address] Ainsley Sellers NP [address] [place] [phone] documented as of this encounter Visit Diagnoses Not on filedocumented in this encounter Care Teams Operations Officer Trust Department Relationship Specialty Start Date End Date Quentin Dawn MD [address] [place] [phone] PCP - General Family Medicine 11/17/23 Ainsley Sellers NP [address] [place] [address] Nurse Practitioner Family Medicine 11/17/23 documented as of this encounter
--- OUTSIDE RECORDS SUMMARY | 2025-05-01 08:54 | XMS_ITS | Encounter Summary ---
Author Organization [facility] Address [address] [place] [address] Care Team Providers Care Sales Representative Printing Paper Name Role Phone Quentin Dawn MD Primary Care Provider [phone] Ainsley Sellers DENTAL HYGIENE ADMINISTRATIVE ASSISTANT Unavailable [phone] Encounter Details Date Type Department Care Team (Late st Contact Info) Description 01/27/2024 Clinisync Result Encounter [facility] External Department Unsolicited Sweta Briggs PA [address] [facility] [address] [place] [address] Social History Tobacco Use Types Packs/Day Years [...] file 11/15/2023 How often do you attend buddhism or tenriism serv ices? Patient declined 11/15/2023 Do you belong to any clubs o r organizations such as buddhism groups, unions, fraternal or athletic groups, or [...] Answer Date Recorded Patient Health Questionnaire-2 Score 2 01/30/2024 Exercise Vital Sign Answer Date Recorde d [...] place to sleep or slept in a fpc (including now)? Patient refused 11/15/2023 Comments Unknown Sex and Gender Information Value Date Recorded Sex Assigned at Not on file Legal Sex Female 7:24 PM EDT Gender Identity Not on file Sexual Orientation Not on file documented as of this encounter Functional Status * Over the past 2 weeks, how often have you been bothered by any of the following problems? Question Answer Date of Assessment Author Little interest or pleasure in doing things Several days 01/30/2024 5:32 PM EDT SWETA HARTMANN Feeling down, depressed, or hopeless Several days 01/30/2024 5:32 PM EDT SWETA HARTMANN Patient Health Questionnaire -2 Score 2 01/30/2024 5:32 PM EDT SWETA HARTMANN * If you checked off any problems on this questionnaire so far, Question Answer Date of Assessment Author How difficult have these problems made it for you to do your work, take care of things at home, or get along with other people? Not difficult at all 01/30/2024 5:32 PM EDT JACK HARTMANN documented as of this encounter Plan of Treatment Upcoming Encounters Date Type Department Care Team (Late st Contact Info) Description 05/28/2025 2:40 PM EDT [facility] Visit [facility] [address] [place] [address] Ainsley Sellers NP [address] [place] [address] 06/12/2025 9:00 AM EDT Office Visit [facility] [address] [place] [address] Ainsley Sellers, ALESSIO [address] [place] [address] documented as of this encounter Procedures Procedure Name Priority Date/Time Associated Diagnosis Comments MR LUMBAR SPINE WO CON 01/27/2024 8:20 AM EDT documented in this encounter Results * MR LUMBAR SPINE WO CON (01/27/2024 8:20 AM EDT) Anatomical Region Laterality Modality Other 01/27/2024 8:20 AM EDT Narrative 01/27/2024 8:23 [place] [address] Magnetic Resonance Report Signed Patient: SIMONA LO MR#: [id number] : 1980 Acct:[id number] Age/Sex: 43 / F ADM Date: 01/27/24 Loc: MRI Attending Dr: Sweta ELIAS Ordering Physician: Sweta Briggs Date of Service: 01/27/24 Procedure(s): MR lumbar spine wo con Accession Number(s): [id number] cc: Shaikh Ewa Millan; Sweta Briggs [place] [id number] Patient Name: SIMONA LO MRN: [facility]:[id number] date: 1980 Sex: F Assigned Patient Location: MRI Current Patient Location: MRI Accession/Order Number: [id number] Exam Date: 01/27/2024 06:55 Report Date: 01/27/2024 08:20 At the request of: SWETA BRIGGS Procedure: MR lumbar spine wo con EXAMINATION: MR lumbar spine wo con HISTORY: Acute Right Lumbar Radiculopathy M54.16 ; right side lumbar pain radiating into right leg, numbness and tingling COMPARISON: No relevant comparison available. TECHNIQUE: A variety of imaging planes and parameters were utilized for visualization of suspected pathology. FINDINGS: For the purposes of numbering, sagittal T2 image # 8 extends from the T11 vertebral body superiorly to the S3 level inferiorly. PARASPINAL AREA: Normal with no visible mass. BONES: No fracture, pars defect, or suspicious osseous lesion. Incidental hemangioma within T12. CORD/CAUDA EQUINA: Normal caliber, contour, and signal intensity. DISC LEVELS: 12-L1: No significant disc/facet abnormality, spinal stenosis, or foraminal stenosis. L1-L2: No significant disc/facet abnormality, spinal stenosis, or foraminal stenosis. L2-L3: No significant disc/facet abnormality, spinal stenosis, or foraminal stenosis. L3-L4: Mild right foramen narrowing secondary to mild degenerative facet arthropathy and ligamentum flavum thickening. No significant central canal or left foramen narrowing. No significant disc bulging or height reduction. L4-L5: No significant disc/facet abnormality, spinal stenosis, or foraminal stenosis. L5-S1: Moderate central canal and right foramen narrowing; mild left foramen narrowing. Moderate diffuse disc bulging with disc extrusion extending inferiorly to mid body of S1. Mild degenerative facet arthropathy bilaterally. MR/MR lumbar spine wo con IMPRESSION: 1. L5-S1 prominent disc extrusion causing moderate central canal and right foramen narrowing, mild left foramen narrowing. Electronically authenticated by: OCHOA BOB Date: 01/27/2024 08:20 Dictated By: Ochoa Bob M.D. Signed By: 01/27/24822 DD/ 9 TD/TT: Die Casting Supervisor: Procedure Note Radiology, Radiologist, MD - 01/27/2024 [place] [address] Magnetic Resonance Report Signed Patient: SIMONA LO EMR#: [id number] : 1980Acct:[id number] Age/Sex: 43 / FADM Date: 01/27/24 Loc: MRI Attending Dr: Sweta ELIAS Ordering Physician: Sweta Briggs Date of Service: 01/27/24 Procedure(s): MR lumbar spine wo con Accession Number(s): [id number] cc: Shaikh Ewa Millan; Sweta Briggs [place] [id number] Patient Name: SIMONA LO MRN: [id number] date: 1980 Sex: F Assigned Patient Location: MRI Current Patient Location: MRI Accession/Order Number: [id number] Exam Date: 01/27/2024 06:55 Report Date: 01/27/2024 08:20 At the request of: SWETA BRIGGS Procedure: MR lumbar spine wo con EXAMINATION: MR lumbar spine wo con HISTORY: Acute Right Lumbar Radiculopathy M54.16 ; right side lumbar pain radiating into right leg, numbness and tingling COMPARISON: No relevant comparison available. TECHNIQUE: A variety of imaging planes and parameters were utilized for visualization of suspected pathology. FINDINGS: For the purposes of numbering, sagittal T2 image # 8 extends from the T11 vertebral body superiorly to the S3 level inferiorly. PARASPINAL AREA: Normal with no visible mass. BONES: No fracture, pars defect, or suspicious osseous lesion. Incidental hemangioma within T12. CORD/CAUDA EQUINA: Normal caliber, contour, and signal intensity. DISC LEVELS: 12-L1: No significant disc/facet abnormality, spinal stenosis, orforaminal stenosis. L1-L2: No significant disc/facet abnormality, spinal stenosis, orforaminal stenosis. L2-L3: No significant disc/facet abnormality, spinal stenosis, orforaminal stenosis. L3-L4: Mild right foramen narrowing secondary to mild degenerative facet arthropathy and ligamentum flavum thickening. No significant central canalor left foramen narrowing. No significant disc bulging or height reduction. L4-L5: No significant disc/facet abnormality, spinal stenosis, orforaminal stenosis. L5-S1: Moderate central canal and right foramen narrowing; mild leftforamen narrowing. Moderate diffuse disc bulging with disc extrusion extending inferiorly to mid body of S1. Mild degenerative facet arthropathybilaterally. MR/MR lumbar spine wo con IMPRESSION: 1. L5-S1 prominent disc extrusion causing moderate central canal and right foramen narrowing, mild left foramen narrowing. Electronically authenticated by: OCHOA BOB Date: 01/27/2024 08:20 Dictated By: Ochoa Bob M.D. Signed By:01/27/24822 DD/ 9 TD/TT: Die Casting Supervisor: us Sweta ELIAS [facility] Final Resul t documented in this encounter Visit Diagnoses Not on filedocumented in this encounter Care Teams Sales Representative Printing Paper Relationship Specialty Start Date End Date Quentin Dawn MD [address] [place] [address] PCP - General Family Medicine 11/17/23 Ainsley Sellers NP [address] [place] [address] Nurse Practitioner Family Medicine 11/17/23 documented as of this encounter
--- OUTSIDE RECORDS SUMMARY | 2025-05-01 08:54 | XMS_ITS | Encounter Summary ---
Author Organization [facility] Address [address] [place] [address] Care Team Providers Care Oncology Social Worker Name Role Phone Quentin Dawn MD Primary Care Provider [phone] Ainsley Sellers VACUUM EVAPORATION OPERATOR Unavailable [phone] Encounter Details Date Type Department Care Team ([facility] Contact Info) Description 06/27/2024 Orders Only [facility] [address] [place] [address] Ainsley Sellers, VACUUM EVAPORATION OPERATOR [address] [place] [address] Social History Tobacco Use Types Packs/Day Years [...] file 11/15/2023 How often do you attend tenriism or buddhist serv ices? Patient declined 11/15/2023 Do you belong to any clubs o r organizations such as tenriism groups, unions, fraternal or athletic groups, or [...] place to sleep or slept in a intermediate (including now)? Patient refused 11/15/2023 Comments Unknown [...] Office Visit [facility] [address] [place] [address] Ainsley Sellers NP [address] [place] [address] 06/12/2025 9:00 AM EDT Office Visit [facility] [address] [place] [address] Ainsley Sellers NP [address] [place] [address] documented as of this encounter Procedures Procedure Name Priority Date/Time Associated Diagnosis Comments XR RIBS 3 VIEWS BILATERAL WITH CHEST POSTEROANTERIOR Routine 06/27/2024 10:20 AM EDT documented in this encounter Results * XR ribs 3 views bilateral w chest posteroanterior (06/27/2024 10:20 AM EDT) Anatomical Region Laterality Modality Rib, Abdomen Bilateral Radiographic Diann ging us Ainsley Aichholz VACUUM EVAPORATION OPERATOR IMG XR PROCEDURES Final Result documented in this encounter Visit Diagnoses Not on filedocumented in this encounter Care Teams Oncology Social Worker Relationship Specialty Start Date End Date Quentin Dawn MD [address] [place] [address] PCP - General Family Medicine 11/17/23 Ainsley Sellers NP [address] [place] [address] Nurse Practitioner Family Medicine 11/17/23 documented as of this encounter
--- OUTSIDE RECORDS SUMMARY | 2025-05-01 08:54 | XMS_ITS | Encounter Summary ---
Author Organization [facility] Address [address] [place] [address] Care Team Providers Care Painter Drum Name Role Phone Quentin Dawn MD Primary Care Provider [phone] Ainsley Sellers WRAPPER CASER Unavailable [phone] Reason for Visit * Reason Comments Med Refill Encounter Details Date Type Department Care Team ([facility] Contact Info) Description 02/14/2024 Refill [facility] [address] [place] [address] Ainsley Sellers, WRAPPER CASER [address] [place] [address] Anxiety Social History Tobacco Use Types Packs/Day Years [...] file 11/15/2023 How often do you attend jehovah's witness or yazidism serv ices? Patient declined 11/15/2023 Do you belong to any clubs o r organizations such as jehovah's witness groups, unions, fraternal or athletic groups, or [...] place to sleep or slept in a care home (including now)? Patient refused 11/15/2023 Comments Unknown Sex and Gender Information Value Date Recorded Sex Assigned at Not on file Legal Sex Female 7:24 PM EDT Gender Identity Not on file Sexual Orientation Not on file documented as of this encounter Miscellaneous Notes * Telephone Encounter - DANIEL HARTMANN - 02/15/2024 12:51 PM EDT pt called asking for a refill on her ALPRAZolam (Xanax) 0.25 MG tablet. * Telephone Encounter - Ainsley Sellers NP - 02/15/2024 8:06 AM EDT Already refilled documented in this encounter Plan of Treatment Upcoming Encounters Date Type Department Care Team (Late st Contact Info) Description 05/28/2025 2:40 PM EDT Office Visit [facility] [address] [place] [address] Ainsley Sellers NP [address] [place] [address] 06/12/2025 9:00 AM EDT Office Visit [facility] [place] [address] [place] [address] Ainsley Sellers NP [address] [place] [address] documented as of this encounter Visit Diagnoses Diagnosis Anxiety Anxiety state, unspecified documented in this encounter Care Teams Painter Drum Relationship Specialty Start Date End Date Quentin Dawn MD [address] [place] [address] PCP - General Family Medicine 11/17/23 Ainsley Sellers NP [address] [place] [address] Nurse Practitioner Family Medicine 11/17/23 documented as of this encounter
--- OUTSIDE RECORDS SUMMARY | 2025-05-01 08:54 | XMS_ITS | Encounter Summary ---
Author Organization [facility] Address [address] [place] [address] Care Team Providers Care Satellite Tv Installer Name Role Phone Quentin Dawn MD Primary Care Provider [phone] Ainsley Sellers CENTRAL OFFICE ASSOCIATE Unavailable [phone] Encounter Details Date Type Department Care Team ([facility] Contact Info) Description 10/22/2024 Orders Only [facility] [address] [place] [address] Ainsley Sellers, CENTRAL OFFICE ASSOCIATE [address] [place] [address] Social History Tobacco Use Types Packs/Day Years [...] file 11/15/2023 How often do you attend mormonism or taoist serv ices? Patient declined 11/15/2023 Do you belong to any clubs o r organizations such as mormonism groups, unions, fraternal or athletic groups, or [...] place to sleep or slept in a senior care (including now)? Patient refused 11/15/2023 Comments Unknown [...] Office Visit [facility] [address] [place] [address] Ainsley Sellers NP [address] [place] [address] 06/12/2025 9:00 AM EDT Office Visit [facility] [address] [place] [address] Ainsley Sellers NP [address] [place] [address] documented as of this encounter Procedures Procedure Name Priority Date/Time Associated Diagnosis Comments XR ANKLE 3+ VIEWS LEFT Routine 10/22/2024 10:17 AM EST documented in this encounter Results * XR ankle 3+ views left (10/22/2024 10:17 AM EST) Anatomical Region Laterality Modality Lower Extremities, Ankle Left Radiogr aphic Imaging us Ainsley Sellers NP IMG XR PROCEDURES Final Result documented in this encounter Visit Diagnoses Not on filedocumented in this encounter Care Teams Satellite Tv Installer Relationship Specialty Start Date End Date Quentin Dawn MD [address] [place] [address] PCP - General Family Medicine 11/17/23 Ainsley Sellers NP [address] [place] [address] Nurse Practitioner Family Medicine 11/17/23 documented as of this encounter
--- OUTSIDE RECORDS SUMMARY | 2025-05-01 08:54 | XMS_ITS | Encounter Summary ---
Author Organization [facility] Address [address] [place] [address] Care Team Providers Care Automotive Porter Name Role Phone Quentin Dawn MD Primary Care Provider [phone] Ainsley Sellers DOOR CAPTAIN Unavailable [phone] Encounter Details Date Type Department Care Team ([facility] Contact Info) Description 01/16/2024 Orders Only [facility] [address] [place] [address] Ainsley Sellers, DOOR CAPTAIN [address] [place] [address] Social History Tobacco Use Types Packs/Day Years [...] How often do you attend tenriism or yazidism serv ices? Patient declined 11/15/2023 [...] Date Recorded Patient Health Questionnaire-2 Score 0 11/17/2023 Exercise Vital Sign Answer Date Recorde d [...] 05/28/2025 2:40 PM EDT [facility] Visit [facility] [address] [place] [address] Ainsley Sellers NP [address] [place] [address] 06/12/2025 9:00 AM EDT Office Visit [facility] [address] [place] [address] Ainsley Sellers NP [address] [place] [address] documented as of this encounter Procedures Procedure Name Priority Date/Time Associated Diagnosis Comments XR HIP 2 OR 3 VW RIGHT Routine 01/12/2024 8:53 AM EDT documented in this encounter Results * XR hip right 2 or 3 views (01/12/2024 8:53 AM EDT) Anatomical Region Laterality Modality Lower Extremities, Hip Right Radiograp hic Imaging us Ainsley Sellers NP IMG XR PROCEDURES Final Result documented in this encounter Visit Diagnoses Not on filedocumented in this encounter Care Teams Automotive Porter Relationship Specialty Start Date End Date Quentin Dawn MD [address] [place] [address] PCP - General Family Medicine 11/17/23 Ainsley Sellers NP [address] [place] [address] Nurse Practitioner Family Medicine 11/17/23 documented as of this encounter
--- OUTSIDE RECORDS SUMMARY | 2025-05-01 08:54 | XMS_ITS | Encounter Summary ---
Author Organization [facility] Address [address] [facility] [place] [address] Care Team Providers Care Knockout Worker Name Role Phone Quentin Dawn MD Primary Care Provider [phone] Quentin Dawn MD Primary Care Provider [phone] Ainsley Sellers HUNTER Unavailable [phone] Reason for Visit * Reason Comments Med Refill Encounter Details Date Type Department Care Team ([facility] Contact Info) Description 10/10/2023 Refill [facility] [address] [place] [address] Ainsley Sellers NP [address] [place] [address] Social History Tobacco Use Types Packs/Day Years Used Date Smoking Tobacco: Every Day Cigarettes 0.5 20 Smokeless Tobacco: Never Alcohol Use Standard Drinks/Week Comments Not Currently 0 (1 standard drink = 0.6 oz pur e alcohol) Comments Unknown Sex and Gender Information Value Date Recorded Sex Assigned at Not on file Legal Sex Female 7:24 PM EDT Gender Identity Not on file Sexual Orientation Not on file documented as of this encounter Miscellaneous Notes * Telephone Encounter - Ainsley Sellers NP - 10/11/2023 8:18 AM EST Needs an appt documented in this encounter Plan of Treatment Upcoming Encounters Date Type Department Care Team (Late st Contact Info) Description 05/28/2025 2:40 PM EDT Office Visit [facility] [address] [place] [address] Ainsley Sellers NP [address] [place] [address] 06/12/2025 9:00 AM EDT Office Visit [facility] [address] [place] [address] Ainsley Sellers NP [address] [place] [address] documented as of this encounter Visit Diagnoses Not on filedocumented in this encounter Care Teams Knockout Worker Relationship Specialty Start Date End Date Quentin Dawn MD PCP - General Family Medicine 05/12/23 11/16/23 Quentin Dawn MD [address] [place] [address] PCP - General Family Medicine 11/17/23 Ainsley Sellers NP [address] [place] [address] Nurse Practitioner Family Medicine 11/17/23 documented as of this encounter
--- OUTSIDE RECORDS SUMMARY | 2025-05-01 08:54 | XMS_ITS | Encounter Summary ---
Author Organization [facility] Address [address] [place] [address] Care Team Providers Care Sign Language Instructor Name Role Phone Quentin Dawn MD Primary Care Provider [phone] Ainsley Sellers GREY TENDER Unavailable [phone] Encounter Details Date Type Department Care Team (Late st Contact Info) Description 11/07/2024 Clinisync Result Encounter [facility] External Department Unsolicited Ainsley Sellers, GREY TENDER [address] [place] [address] Social History Tobacco Use Types Packs/Day Years [...] file 11/15/2023 How often do you attend amish or episcopal serv ices? Patient declined 11/15/2023 Do you belong to any clubs o r organizations such as amish groups, unions, fraternal or athletic groups, or [...] place to sleep or slept in a residential (including now)? Patient refused 11/15/2023 Comments Unknown [...] Office Visit [facility] [address] [place] [address] Ainsley Sellers NP [address] [place] [address] 06/12/2025 9:00 AM EDT Office Visit [facility] [address] [place] [address] Ainsley Sellers NP [address] [place] [address] documented as of this encounter Procedures Procedure Name Priority Date/Time Associated Diagnosis Comments MM TOMOSYNTHESIS SCREENING BI 11/07/2024 9:25 AM EST documented in this encounter Results * MM TOMOSYNTHESIS SCREENING BI (11/07/2024 9:25 AM EST) Anatomical Region Laterality Modality Other 11/07/2024 9:25 AM EST Narrative 11/07/2024 9:26 AM EST [facility] [place] [id number] Mammography Report Signed Patient: SIMONA LO MR#: [id number] : 1980 Acct:[id number] Age/Sex: 44 / F ADM Date: 11/07/24 Loc: MAMMO Attending Dr: Ainsley Sellers NP Ordering Physician: Ainsley Sellers NP Results: Date of Service: 11/07/24 Follow Up: Procedure(s): MM tomosynthesis screening BI Accession Number(s): [id number] cc: Ainsley Sellers NP Patient Name: SIMONA LO MR#: [id number] : 1980 Exam Date: 11/07/2024 Ordering Doctor: FADI Sellers CNP RADIOLOGY REPORT PROCEDURE: MM TOMOSYNTHESIS SCREENING BI COMPARISON: MM TOMOSYNTHESIS SCREENING BI, 03/30/2022. MM TOMOSYNTHESIS SCREENING BI, 04/15/2023. INDICATIONS: SCREENING FOR BREAST MALIGNANCY Calculator Name NCI Breast Cancer Risk Assessment Tool 5 Year Breast Cancer Risk 0.70% Lifetime Breast Cancer Risk 8.70% Personal Breast Cancer No Personal Ovarian Cancer No Treatments None Family Cancers None LOCATION: [facility] BREAST COMPOSITION: There are scattered areas of fibroglandular density. FINDINGS: DIAGNOSTIC CATEGORY 2--BENIGN FINDING. NO CHANGE FROM COMPARISON. Scattered benign-appearing lymph nodes are present. RIGHT BREAST: No significant suspicious finding. LEFT BREAST: No significant suspicious finding. RECOMMENDATIONS: ROUTINE MAMMOGRAM AND CLINICAL EVALUATION IN 12 MONTHS. PLEASE NOTE: A NORMAL MAMMOGRAM DOES NOT EXCLUDE THE POSSIBILITY OF BREAST CANCER. A CLINICALLY SUSPICIOUS PALPABLE LUMP SHOULD BE BIOPSIED. Dictated by: Rodolfo Sanford MD on 11/07/2024 at 09:23 Approved by: Rodolfo Sanford MD on 11/07/2024 at 09:25 Dictated By: Rodolfo Sanford M.D. Signed By: 11/07/24925 DD/ 4 TD/TT: Carbonizer Tester: Procedure Note Radiology, Radiologist, - 11/07/2024 [facility] [place] [id number] Mammography Report Signed Patient: SIMONA LO EMR#: [id number] : 1980Acct:[id number] Age/Sex: 44 / FADM Date: 11/07/24 Loc: MAMMO Attending Dr: Ainsley Sellers GREY TENDER Ordering Physician: Ainsley Sellers NPResults: Date of Service: 11/07/24Follow Up: Procedure(s): MM tomosynthesis screening BI Accession Number(s): [id number] cc: Ainsley Sellers NP Patient Name: SIMONA LO MR#: [id number] : 1980 Exam Date: 11/07/2024 Ordering Doctor: FADI Sellers DRUM STOCK CLERK RADIOLOGY REPORT PROCEDURE: MM TOMOSYNTHESIS SCREENING BI COMPARISON: MM TOMOSYNTHESIS SCREENING BI, 03/30/2022. MMTOMOSYNTHESIS SCREENING BI, 04/15/2023. INDICATIONS: SCREENING FOR BREAST MALIGNANCY Calculator Name NCI Breast Cancer Risk Assessment Tool 5 Year Breast Cancer Risk 0.70% Lifetime Breast Cancer Risk 8.70% Personal Breast Cancer No Personal Ovarian Cancer No Treatments None Family Cancers None LOCATION: [facility] BREAST COMPOSITION: There are scattered areas of fibroglandulardensity. FINDINGS: DIAGNOSTIC CATEGORY 2--BENIGN FINDING. NO CHANGE FROM COMPARISON.Scattered benign-appearing lymph nodes are present. RIGHT BREAST: No significant suspicious finding. LEFT BREAST: No significant suspicious finding. RECOMMENDATIONS: ROUTINE MAMMOGRAM AND CLINICAL EVALUATION IN 12 MONTHS. PLEASE NOTE: A NORMAL MAMMOGRAM DOES NOT EXCLUDE THE POSSIBILITY OFBREAST CANCER. A CLINICALLY SUSPICIOUS PALPABLE LUMP SHOULD BE BIOPSIED. Dictated by: Rodolfo Sanford MD on 11/07/2024 at 09:23 Approved by: Rodolfo Sanford MD on 11/07/2024 at 09:25 Dictated By: Rodolfo Sanford M.D. Signed By:11/07/24925 DD/ 4 TD/TT: Carbonizer Tester: Ainsley Sellers NP [facility] Final Result documented in this encounter Visit Diagnoses Not on filedocumented in this encounter Care Teams Sign Language Instructor Relationship Specialty Start Date End Date Quentin Dawn MD [address] [place] [address] PCP - General Family Medicine 11/17/23 Ainsley Sellers NP [address] [place] [address] Nurse Practitioner Family Medicine 11/17/23 documented as of this encounter
--- OUTSIDE RECORDS SUMMARY | 2025-05-01 08:54 | XMS_ITS | Encounter Summary ---
Author Organization [facility] Address [address] [place] [address] Care Team Providers Care Salt Machine Operator Name Role Phone Quentin Dawn MD Primary Care Provider [phone] Ainsley Sellers SYSTEM SOFTWARE DEVELOPER Unavailable [phone] Encounter Details Date Type Department Care Team (Late st Contact Info) Description 01/14/2024 Clinisync Result Encounter [facility] External Department Unsolicited Ainsley Sellers, SYSTEM SOFTWARE DEVELOPER [address] [place] [address] Social History Tobacco Use Types Packs/Day Years [...] file 11/15/2023 How often do you attend spiritism or sikhism serv ices? Patient declined 11/15/2023 Do you belong to any clubs o r organizations such as spiritism groups, unions, fraternal or athletic groups, or [...] place to sleep or slept in a halfway (including now)? Patient refused 11/15/2023 Comments Unknown [...] Visit [facility] [address] [place] [address] Ainsley Sellers NP [address] [place] [address] 06/12/2025 9:00 AM EDT Office Visit [facility] [address] [place] [address] Ainsley Sellers NP [address] [place] [address] documented as of this encounter Procedures Procedure Name Priority Date/Time Associated Diagnosis Comments XR HIP 2 OR 3 VW RIGHT 01/14/2024 9:14 AM EDT documented in this encounter Results * XR hip right 2 or 3 views (01/14/2024 9:14 AM EDT) Anatomical Region Laterality Modality Lower Extremities, Hip Right Radiograp hic Imaging 01/14/2024 9:14 AM EDT Narrative 01/14/2024 9:16 AM EDT [facility] [place] [id number] XRay Report Signed Patient: SIMONA LO MR#: [id number] : 1980 Acct:[id number] Age/Sex: 43 / F ADM Date: 01/12/24 Loc: RAD Attending Dr: Ainsley Sellers NP Ordering Physician: Ainsley Sellers NP Date of Service: 01/12/24 Procedure(s): XR hip RT min 2V Accession Number(s): [id number] cc: Ainsley Sellers SYSTEM SOFTWARE DEVELOPER; Shaikh Ewa Millan [facility] [place] [id number] Patient Name: SIMONA LO MRN: [id number] date: 1980 Sex: F Assigned Patient Location: [facility] Current Patient Location: [facility] Accession/Order Number: [id number] Exam Date: 01/12/2024 17:32 Report Date: 01/14/2024 09:14 At the request of: AINSLEY SELLERS Procedure: XR hip RT min 2V PROCEDURE: XR hip RT min 2V HISTORY: acute right hip pain M25.551 ; pain radiating down right leg COMPARISON: None. FINDINGS: BONES:No fracture, acute abnormality, or significant arthropathy. SOFT TISSUES:No visible soft tissue swelling. EFFUSION:None visible. OTHER: Negative. XR/XR hip RT min 2V IMPRESSION: 1. No acute bone abnormality or significant degenerative changes of the right hip. Electronically authenticated by: OCHOA BOB Date: 01/14/2024 09:14 Dictated By: Ochoa Bob M.D. Signed By: 01/14/24915 DD/ 3 TD/TT: Forestry Workers: Procedure Note Radiology, Radiologist, MD - 01/14/2024 [facility] [place] [id number] XRay Report Signed Patient: SIMONA LO EMR#: [id number] : 1980Acct:[id number] Age/Sex: 43 / FADM Date: 01/12/24 Loc: RAD Attending Dr: Ainsley Sellers NP Ordering Physician: Ainsley Sellers NP Date of Service: 01/12/24 Procedure(s): XR hip RT min 2V Accession Number(s): [id number] cc: Ainsley Sellers SYSTEM SOFTWARE DEVELOPER; Shaikh Ewa Millan [place] [id number] Patient Name: SIMONA LO MRN: [id number] date: 1980 Sex: F Assigned Patient Location: [facility] Current Patient Location: [facility] Accession/Order Number: [id number] Exam Date: 01/12/2024 17:32 Report Date: 01/14/2024 09:14 At the request of: AINSLEY SELLERS Procedure: XR hip RT min 2V PROCEDURE: XR hip RT min 2V HISTORY: acute right hip pain M25.551 ; pain radiating down right leg COMPARISON: None. FINDINGS: BONES:No fracture, acute abnormality, or significant arthropathy. SOFT TISSUES:No visible soft tissue swelling. EFFUSION:None visible. OTHER: Negative. XR/XR hip RT min 2V IMPRESSION: 1. No acute bone abnormality or significant degenerative changes of theright hip. Electronically authenticated by: OCHOA BOB Date: 01/14/2024 09:14 Dictated By: Ochoa Bob M.D. Signed By:01/14/24915 DD/ 3 TD/TT: Forestry Workers: Ainsley Sellers NP IMG XR PROCEDURES Final Result documented in this encounter Visit Diagnoses Not on filedocumented in this encounter Care Teams Salt Machine Operator Relationship Specialty Start Date End Date Quentin Dawn MD [address] [place] [address] PCP - General Family Medicine 11/17/23 Ainsley Sellers NP [address] [place] [address] Nurse Practitioner Family Medicine 11/17/23 documented as of this encounter
--- OUTSIDE RECORDS SUMMARY | 2025-05-01 08:54 | XMS_ITS | Encounter Summary ---
Author Organization [facility] Address [address] [place] [address] Care Team Providers Care Experimental Plastics Fabricator Name Role Phone Quentin Dawn MD Primary Care Provider [phone] Quentin Dawn MD Primary Care Provider [phone] Ainsley Sellers CLEANING AND WASHING EQUIPMENT OPERATOR Unavailable [phone] Encounter Details Date Type Department Care Team ([facility] Contact Info) Description 2023 Orders Only [facility] [address] [place] [address] Shaikh Millan MD [address] [place] [address] Social History Tobacco Use Types Packs/Day Years [...] Upcoming Encounters Date Type Department Care Team ([facility] Contact Info) Description 05/28/2025 2:40 PM EDT [facility] [address] [place] [address] Ainsley Sellers NP [address] [place] [address] 06/12/2025 9:00 AM EDT Office Visit [facility] [address] [place] [address] Ainsley Sellers, ALESSIO [address] [place] [address] documented as of this encounter Procedures Procedure Name Priority Date/Time Associated Diagnosis Comments MISCELLANEOUS LAB TEST Routine 10/07/2023 2:13 PM EST documented in this encounter Results * - Miscellaneous Test (10/07/2023 2:13 PM EST) Shaikh Monty [facility] BLOOD ORDERABLES Final Resu lt documented in this encounter Visit Diagnoses Not on filedocumented in this encounter Care Teams Experimental Plastics Fabricator Relationship Specialty Start Date End Date Quentin Dawn MD PCP - General Family Medicine 05/12/23 11/16/23 Quentin Dawn MD [address] [place] [address] PCP - General Family Medicine 11/17/23 Ainsley Sellers, ALESSIO [address] [place] [address] Nurse Practitioner Family Medicine 11/17/23 documented as of this encounter
--- OUTSIDE RECORDS SUMMARY | 2025-05-01 08:55 | XMS_ITS | Clinical Summary ---
Author Organization [facility] Address [address] [place] [address] Care Team Providers Care Skein Winder Name Role Phone Quentin Dawn MD Primary Care Provider [phone] Ainsley Sellers HEEL COVER SOFTENER Unavailable [phone] Allergies Active Allergy Reactions Criticality Noted Date Comments Diphenhydramine Rash,Hallucinations Low 10/05/2023 Codeine Hives,Hallucinations 10/05/2023 Medications ProAir HFA 108 (90 Base) MCG/ACT inhaler Inhale 2 puffs every 6 (six) hours if needed for shortness of breath or wheezing Active ALPRAZolam (Xanax) 0.25 MG tabletIndicatio ns:Anxiety Take 1 tablet (0.25 mg) by mouth Daily as needed for anxiety 30 tablet 5 Active FLUoxetine (PROzac) 40 MG capsuleIndicati ons:Anxiety,Cur rent moderate episode of major depressive disorder without prior episode (HCC) Take 1 capsule (40 mg) by mouth Daily 90 capsule 5 06/10/20 25 Active OLANZapine (ZyPREXA) 2.5 MG tabletIndicatio ns:Anxiety,Curr ent moderate episode of major depressive disorder without prior episode (HCC) Take 1 tablet (2.5 mg) by mouth at bedtime 90 tablet 5 06/10/20 25 Active traZODone (Desyrel) 50 MG tabletIndicatio ns:Primary insomnia Take 1 tablet (50 mg) by mouth at bedtime Take 1 tablet (50 mg) by mouth at bedtime 30 tablet 2 5 05/08/20 Active phentermine (Adipex-P) 37.5 MG tabletIndicatio ns:Obesity (BMI 30-39.9) Take 1 tablet (37.5 mg) by mouth in the morning. Take before meals. 30 tablet 5 05/23/20 Active traZODone (Desyrel) 50 MG tabletIndicatio ns:Primary insomnia Take 1 tablet (50 mg) by mouth at bedtime 30 tablet 2 4 04/08/20 Discontinu ed(Reorder ) Active Problems Problem Noted Date Diagnosed Date Microscopic hematuria 04/23/2025 Elevated glucose 04/23/2025 Assessment & Plan (04/23/2025 3:37 PM EDT): Glucose was 118 on 02/08/25 A1c: 5.4% 04/23/25 Tobacco dependence 03/12/2025 Assessment & Plan (04/23/2025 7:05 AM EDT): The patient has been advised of the risks of continued smoking: stroke, OR, all forms of cancer, lung disease, and . Options for quitting smoking include: cold turkey, hypnosis, acupuncture, nicotine replacement meds (gum, lozenges, and patches), Buproprion, and Varenicline. At this time pt is encouraged to evaluate their goals for wanting to quit smoking, and reach out to provider when ready to start this process Assessment & Plan (03/12/2025 6:09 AM EDT): The patient has been advised of the risks of continued smoking: stroke, OR, all forms of cancer, lung disease, and . Options for quitting smoking include: cold turkey, hypnosis, acupuncture, nicotine replacement meds (gum, lozenges, and patches), Buproprion, and Varenicline. At this time pt is encouraged to evaluate their goals for wanting to quit smoking, and reach out to provider when ready to start this process Left flank pain 02/11/2025 Assessment & Plan (02/11/2025 4:51 PM EDT): Order KUB xray Tubular adenoma of colon 12/26/2024 Assessment & Plan (12/26/2024 11:53 AM EST): Per colonoscopy from 12/2024 Generalized abdominal pain 12/11/2024 Partial thickness rotator cuff tear 11/23/2024 Overview (03/12/2025): 840.4 [id number] DOI 08/31/09 Current moderate episode of major depressive disorder without prior episode 11/15/2024 Overview (11/15/2024): PHQ 9 score= 19 on 11/15/24 Assessment & Plan (04/23/2025 7:05 AM EDT): Current meds; zyprexa, fluoxetine, and prn xanax Assessment & Plan (03/12/2025 9:19 AM EDT): Current meds; zyprexa, fluoxetine, and prn xanax PHQ9=2 Assessment & Plan (11/15/2024 9:37 AM EST): Currently taking fluoxetine at 40mg daily, xanax prn Home and work stress Add zyprexa at 2.5mg at bed time may help with sleep, as well as anxiety and depression Cyst of right ovary 11/01/2024 Assessment & Plan (03/12/2025 9:26 AM EDT): Noted on CT scan from 10/23 [facility] ER Was referred to MECHANICAL TEST ENGINEER, is going to have pelvic US Assessment & Plan (11/01/2024 1:38 PM EST): Noted on CT scan from 10/23 [facility] ER Will need US and fu with MECHANICAL TEST ENGINEER, will refer her back to MECHANICAL TEST ENGINEER Rib pain on right side 06/26/2024 Assessment & Plan (06/26/2024 4:26 PM EDT): Add naproxen 500mg BID with food Check xray rib study Further treatment as per xray result Diverticulitis 03/29/2024 Assessment & Plan (11/15/2024 9:21 AM EST): Last appt re treatment with cipro and flagyl and a referral to GI Has colonoscopy scheduled mid 2024 Assessment & Plan (11/01/2024 1:45 PM EST): Recent ER visit to [facility], see CT scan Will treat with cipro and flagyl and more dicyclomine Refer to GI will need colonoscopy when they feel is ok after flare Fu in 2 weeks recheck, sooner if worsening in symptoms Assessment & Plan (04/26/2024 2:27 PM EDT): No pain at this time, occ nausea No bloody stools or urine Sxs have resolved Assessment & Plan (03/29/2024 10:55 AM EDT): Finish atb Overall is doing well , discussed pathophys Consider colonoscopy on the future as well as adding fiber supplement Fu in 4 weeks, sooner if needed Encounter for screening mamm ogram for malignant neoplasm of breast 03/29/2024 Assessment & Plan (11/01/2024 7:07 AM EST): Was ordered 02/2024, pt non compliant with completing this Will re order for 2024, explain importance of getting completed Osteoarthritis of hip 10/06/2023 Sciatica 10/06/2023 Anxiety 10/06/2023 Overview (11/15/2024): Med agreement: 11/15/24 CRISTAL 7 score=19 PHQ 9 score=19 Assessment & Plan (04/23/2025 7:05 AM EDT): Taking fluoxetine, olanzapine and prn xanax Assessment & Plan (03/12/2025 9:19 AM EDT): Taking fluoxetine, olanzapine and prn xanax PHQ 9=2 CRISTAL 7=6 Assessment & Plan (11/15/2024 9:39 AM EST): Taking fluoxetine and prn dose of xanax [...] Please contact the office if these occur. Assessment & Plan (07/25/2024 6:26 PM EDT): Will remain off fluoxetine med for now use benzo prn Will monitor and if worsening in anxiety, will trial different med for anxiety Assessment & Plan (06/11/2024 6:34 PM EDT): Fluoxetine daily Xanax prn Fu in 3 months Assessment & Plan (04/26/2024 2:28 PM EDT): Mix up with scripts for fluoxetine, only take 20mg Send in new updated script for 40mg Xanax prn Fu in 6 weeks Assessment & Plan (03/08/2024 6:21 PM EDT): Cont with SSRI, xanax prn OARRS reviewed as well, last fill xanax 11/23 Fu in 3 months Assessment & Plan (11/17/2023 3:36 PM EST): Strong suspicion that her syncope could possibly been a panic attack, will continue to monitor No changes in SSRI, and only uses xanax 1-2 times per week Fu in 8 weeks Bunion, left 10/06/2023 Stage 3a chronic kidney disease (CKD) 10/06/2023 Assessment & Plan (04/23/2025 7:02 AM EDT): Follow labs Hot flashes 10/06/2023 Insomnia 10/06/2023 Leg pain, bilateral 10/06/2023 Obesity (BMI 30-39.9) 10/06/2023 Assessment & Plan (04/23/2025 3:50 PM EDT): Discussed with patient their BMI (actual, verses recommended). We have also discussed lifestyle modifications: attempts to perform physical activity as chronic conditions allow, also to monitor dietary intake: increasing protein/fruits/veggies and lowering carb intake (unless contraindicated). Limit sodas, juices, and sugary drinks. 25 pound weight gain in the last 12 months Pt meets qualifications of OAC 4731-09-03 for weight loss. BMI>30 or >27 with comorbid conditions. Notify office with any symptoms of chest pain, dyspnea, heart palpitations, or any anxiety symptoms. F/U in 4 weeks to document weight loss. Increase physical activity as tolerated, and lower caloric intake to 1600 calories daily if no contraindications Assessment & Plan (03/12/2025 6:07 AM EDT): Discussed with patient their BMI (actual, verses recommended). We have also discussed lifestyle modifications: attempts to perform physical activity as chronic conditions allow, also to monitor dietary intake: increasing protein/fruits/veggies and lowering carb intake (unless contraindicated). Limit sodas, juices, and sugary drinks. Assessment & Plan (11/15/2024 6:25 AM EST): Discussed with patient their BMI (actual, verses recommended). We have also discussed lifestyle modifications: attempts to perform physical activity as chronic conditions allow, also to monitor dietary intake: increasing protein/fruits/veggies and lowering carb intake (unless contraindicated). Limit sodas, juices, and sugary drinks. Assessment & Plan (11/01/2024 7:05 AM EST): Discussed with patient their BMI (actual, verses recommended). We have also discussed lifestyle modifications: attempts to perform physical activity as chronic conditions allow, also to monitor dietary intake: increasing protein/fruits/veggies and lowering carb intake (unless contraindicated). Limit sodas, juices, and sugary drinks. Assessment & Plan (06/11/2024 6:34 PM EDT): At this point pt will trial [id number] calories daily Still limited activity d/t lumbar spine We will fu in 6 weeks At that point we could consider an adipex or something Tenosynovitis, de Quervain 10/06/2023 Peripheral polyneuropathy 10/06/2023 Assessment & Plan (10/06/2023 2:24 PM EST): Bilateral tingling/numbness in her LE, chronic, ongoing, takes gabapentin at night. And it helps. Not sure of the etiology of her neuropathic pain. Order EMG/NCV, A1C, B12 and folate. 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 10/06/2023 Assessment & Plan (04/26/2024 2:27 PM EDT): Surgery for 04/30/24 Assessment & Plan (04/26/2024 7:15 AM EDT): >>ASSESSMENT AND PLAN FOR BULGING OF LUMBAR INTERVERTEBRAL DISC WRITTEN ON 01/30/2024 6:07 PM BY AINSLEY SELLERS NP Has been referred to pain mgmt and neurosurgery Tearful in pain today in office, recommend start steroids as ordered Will provide a temporary supply of narcotic pain med until can be seen by pain mgmt Reviewed reasons to go to ER Fu here in 4 weeks Reviewed in detail the results for MRI Assessment & Plan (04/26/2024 7:14 AM EDT): >>ASSESSMENT AND PLAN FOR DEGENERATIVE DISC DISEASE AT L5-S1 LEVEL WRITTEN ON 03/08/2024 6:20 PM BY AINSLEY SELLERS NP Continue with neurosurgeon, PT and edu Assessment & Plan (04/26/2024 7:14 AM EDT): >>ASSESSMENT AND PLAN FOR RIGHT LEG PAIN WRITTEN ON 10/06/2023 2:27 PM BY SHAIKH BETO MD Right leg pain - dull, aching, worse when she lays on her right side. Going on for 3 months. No hx of trauma. No LBP. Exam does not appear c/w trochanteric bursitis or meralgia paresthetica Suspect this is likely progression of her neuropathic pain Patient asked to use 600 mg Gabapentin and see if it helps her. She will let us know in a few days so that an increased dose can be prescribed to her. Assessment & Plan (04/26/2024 7:13 AM EDT): >>ASSESSMENT AND PLAN FOR PAIN OF RIGHT LOWER EXTREMITY WRITTEN ON 11/17/2023 3:38 PM BY AINSLEY SELLERS, HEEL COVER SOFTENER Will refer to neurology Differentials: meralgia prasthetica, lumbar radiculopathy, IT band syndrome, or RLS Fu in 8 weeks Resolved Problems Problem Noted Date Diagnosed Date Resolved Date Acute urinary retention 07/25/202402/28 Assessment & Plan (07/25/2024 6:28 PM EDT): Only a few drops of urine in office: clear, yellow, mod blood, sm leuk, all others normal Will refer to [facility] ER for evaluation: differentials: UTI, KRYS, pyleo, urinary retention Acute right hip pain 01/12/2024 024 Assessment & Plan (01/12/2024 5:14 PM EDT): Suspect bursitis, we will restart steroids Does NOT want pain pills Differentials: lumbar radiculopathy Off work 2 weeks If worsens go to ER No s/s to suspect DVT Refer to ortho Overweight (BMI 25.0-29.9) 10/06/2023 0 03/08/2024 Depression screen 10/06/2023 04/26/2024 Erythema ab igne 10/06/2023 04/26/2024 Non-recurrent acute suppurat lali otitis media of both ears without spontaneous rupture of tympanic membranes 10/06/2023 03/08/2024 Rash in adult 10/06/2023 04/26/2024 Right elbow pain 10/06/2023 04/26/2024 Tobacco user 10/06/2023 03/12/2025 Assessment & Plan (11/15/2024 6:29 AM EST): The patient has been advised of the risks of continued smoking: stroke, OR, all forms of cancer, lung disease, and . Options for quitting smoking include: cold turkey, hypnosis, acupuncture, nicotine replacement meds (gum, lozenges, and patches), Buproprion, and Varenicline. At this time pt is encouraged to evaluate their goals for wanting to quit smoking, and reach out to provider when ready to start this process Assessment & Plan (11/01/2024 7:05 AM EST): The patient has been advised of the risks of continued smoking: stroke, OR, all forms of cancer, lung disease, and . Options for quitting smoking include: cold turkey, hypnosis, acupuncture, nicotine replacement meds (gum, lozenges, and patches), Buproprion, and Varenicline. At this time pt is encouraged to evaluate their goals for wanting to quit smoking, and reach out to provider when ready to start this process Stage 2 chronic kidney disease 10/06/2023 04/26/2024 Assessment & Plan (10/06/2023 2:25 PM EST): Reports hx of CKD 2, no recent lab testing done. Last BMP was in 03/22 with mild renal insufficiency noted Check labs, renal US Encounters Date Type Department Care Team Description 04/26/2025 Orders Only [facility] [address] [place] [address] Ainsley Sellers NP Microscopic hematuria (Primary Dx) 04/24/2025 Clinisync Result Encounter [facility] External Department Unsolicited Ainsley Sellers NP 04/23/2025 3:20 PM EDT Office Visit [facility] [address] [place] [address] Ainsley Sellers NP Anxiety (Primary Dx); Stage 3a chronic kidney disease (CKD) ([facility]); Obesity (BMI 30-39.9); Current moderate episode of major depressive disorder without prior episode ([facility]); Tobacco dependence; Microscopic hematuria; Elevated glucose 04/23/2025 Bamboo flowsheet [facility] [address] [place] [address] Ainsley Sellers NP 04/08/2025 Refill [facility] [address] [place] [address] Ainsley Sellers NP Primary insomnia 04/08/2025 Telephone [facility] [address] [place] [address] Ainsley Sellers NP 03/12/2025 9:00 AM EDT Office Visit [facility] [address] [place] [address] Ainsley Sellers NP Anxiety (Primary Dx); Obesity (BMI 30-39.9); Cyst of right ovary; Tobacco dependence; Current moderate episode of major depressive disorder without prior episode (HCC) 03/12/2025 Bamboo flowsheet [facility] [address] [place] [address] Ainsley Sellers NP 03/11/2025 Travel 03/07/2025 Refill [facility] [address] [place] [phone] Ainsley Sellers NP Anxiety; Current moderate episode of major depressive disorder without prior episode (HCC) 02/12/2025 Clinisync Result Encounter [facility] Unsolicited Ainsley Sellers NP 02/11/2025 Orders Only [facility] [address] [place] [address] Ainsley Sellers NP Left flank pain (Primary Dx) 02/11/2025 Results Follow-Up [facility] [address] [place] [address] 02/08/2025 Clinisync Result Encounter [facility] Unsolicited Ainsley Sellers NP 02/06/2025 Telephone [facility] [address] [place] [address] Ainsley Sellers NP Lab Orders from Last 3 Months Immunizations Immunization Administration Dates Next Due Influenza Whole 09/04/2007 Influenza, injectable, MDCK, preservative free, quadrivalent 09/03/2022 Influenza, seasonal, injectable 09/04/2010 Influenza, seasonal, injectable, preservative fr ee 08/29/2016 Family History Medical History Relation Name Comments Diabetes Father Thyroid disease Sister Relation Name Status Comments Father Sister Social History Tobacco Use Types Packs/Day Years Used Date Smoking Tobacco: Every Day Cigarettes 0.5 20 Smokeless Tobacco: Never Tobacco Cessation:Ready to Q uit: Not Asked; Counseling Given: Not Answered Alcohol Use Standard Drinks/Week Comments Not Currently [...] often do you attend chur ch or anabaptist services? Never 03/11/2025 Do you belong to [...] Recorded Patient Health Questionnaire-2 Score 3 11/15/2024 [facility] - Occupational Stress [...] place to sleep or slept in a assisted (including now)? Patient refused 11/15/2023 Housing Stability Vital Sign Answer Neto e Recorded In the last 12 months, was t here a time when you were not able to pay the mortgage or rent on time? No 03/11/2025 Number of Times Moved in the Last Year Not on fi le 03/11/2025 At any time in the past 12 m [facility], were you homeless or living in a assisted (including now)? No 03/11/2025 Comments Unknown Sex and Gender Information Value Date Recorded Sex Assigned at Not on file Legal Sex Female 7:24 PM EDT Gender Identity Not on file Sexual Orientation Not on file Last Filed Vital Signs Vital Sign Reading Time Taken Comments Blood Pressure 122/82 04/23/2025 3:22 PM EDT Pulse 85 04/23/2025 3:22 PM EDT Temperature 36.9 C (98.5 F) 04/23/2025 3:22 PM EDT Respiratory Rate 18 04/23/2025 3:22 PM EDT Oxygen Saturation 96% 04/23/2025 3:22 PM EDT Inhaled Oxygen Concentration - - Weight 91.5 kg (201 lb 12.8 oz) 04/23/2025 3:22 PM EDT Height 160 cm (5' 3 ) 11/15/2024 9:03 AM EST Body Mass Index 35.75 11/15/2024 9:03 AM EST Plan of Treatment Upcoming Encounters Date Type Department Care Team (Late st Contact Info) Description 05/28/2025 2:40 PM EDT Office Visit [facility] [address] [place] [address] Ainsley Sellers NP [address] [place] [phone] 06/12/2025 9:00 AM EDT Office Visit [facility] [address] [place] [address] Ainsley Sellers NP [address] [place] [address] Health Maintenance Due Date Last Done Comments Pap Smear 04/28/2020 04/28/2017 Influenza Vaccine (#1) 2025 , 08/29/2016, 09/04/2010, Additional history exists Mammogram 11/07/2025 11/07/2024, 04/15/2023, 03/02 Cervical Cancer Screening 11/23/2029 HPV/Cotest 11/23/2029 11/23/2024, 03/24/2022 Procedures Procedure Name Priority Date/Time Associated Diagnosis Comments ALL LIPID PROFILE (FASTING) Routine 04/24/2025 10:11 AM EDT [facility] CMP (CMP) (FOR REMOTE [facility] USE) Routine 04/24/2025 10:11 AM EDT [facility] URINE MICROSCOPIC ONLY Routine 04/24/2025 10:06 AM EDT [facility] UA (CLEAN/CATCH) MICROSCOPIC IF INDICATE Routine 04/24/2025 10:06 AM EDT POCT GLYCOSYLATED HEMOGLOBIN (HGB A1C) Routine 04/23/2025 3:37 PM EDT Elevated glucose XR ABDOMEN 1V 02/12/2025 3:25 PM EDT ALL BASIC METABOLIC PANEL Routine 02/08/2025 1:28 PM EDT MM TOMOSYNTHESIS SCREENING BI 11/07/2024 9:25 AM EST from Last 3 Months or Most Recently Relevant to Health Maintenance Results * (ABNORMAL) [facility] CMP (CMP) (FOR REMOTE [facility] USE) (04/24/2025 10:11 AM EDT) SODIUM 137 136 - 145 mmol/L TBH POTASSIUM 4.7 3.5 - 5.1 mmol/L TBH CHLORIDE 105 98 - 107 mmol/L TBH CARBON DIOXIDE 24.3 21.0 - 32.0 mmol/L TBH ANION GAP 12.4 TBH GLUCOSE 109(H) 74 - 106 mg/dL TBH BLOOD UREA NITROGEN 15.0 7.0 - 18.0 mg/dL TBH CREATININE 1.08(H) 0.55 - 1.02 mg/dL TBH TBH EGFR-AF DJIBOUTIAN >60 >=60 mL/min/1. 73m 2 TBH TBH EGFR-NON AF DJIBOUTIAN 55(L) >=60 mL/min/1. 73m 2 TBH BUN CREATININE RATIO 13.9 TBH CALCIUM 9.2 8.5 - 10.1 mg/dL TBH BILIRUBIN TOTAL 0.3 0.2 - 1.0 mg/dL TBH ASPARTATE AMINO TRANSFERASE 15 15 - 37 U/L TBH ALANINE AMINOTRANSFERASE 27 14 - 59 U/L TBH ALKALINE PHOSPHATASE 100 46 - 116 U/L TBH TOTAL PROTEIN 6.7 6.4 - 8.2 g/dL TBH ALBUMIN LEVEL 3.4 3.4 - 5.0 g/dL TBH GLOBULIN 3.3 g/dL TBH ALBUMIN GLOBULIN RATIO 1.0 TBH 04/24/2025 10:1 1 AM EDT 04/24/2025 10:13 AM EDT Narrative [facility] - 04/24/2025 11:03 AM EDT Ainsley Sellers NP CLINIS[facility]NC Final Result [facility] * (ABNORMAL) ALL LIPID PROFILE (FASTING) (04/24/2025 10:11 AM EDT) TRIGLYCERIDES 130 <=150 mg/dL TBH CHOLESTEROL 236(H) <=200 mg/dL TBH HDL CHOLESTEROL 37(L) 40 - 60 mg/dL TB Comment: > or =60 mg/dl - LOW CARDIOVASCULAR RISK <40 mg/dl - HIGH CARDIOVASCULAR RISK LDL CHOLESTEROL CALCULATED 173.0 mg/dL TB Comment: <100 mg/dl OPTIMAL 100-129 mg/dl NEAR OR ABOVE OPTIMAL 130-159 mg/dl BORDERLINE HIGH 160-189 mg/dl HIGH >190 mg/dl VERY HIGH VLDL CHOLESTEROL 26.0 mg/dL TB CHOL HDL RATIO 6.4 TBH Comment: 3.3 - 4.4 LOW RISK 4.4 - 7.1 AVERAGE RISK 7.1 - 11.0 MODERATE RISK >11.0 HIGH RISK 04/24/2025 10:1 1 AM EDT 04/24/2025 10:13 AM EDT [facility] - 04/24/2025 11:03 AM EDT Ainsley Sellers NP CLINISYNC Final Result Performing Organization Address [facility] Phone Number [facility] * (ABNORMAL) TBH URINE MICROSCOPIC ONLY (04/24/2025 10:06 AM EDT) TBH WBC 0-2(A) NONE SEEN #/HPF TBH TBH RBC 2-5(A) 0 - 2 #/HPF TBH BACTERIA URINE SMALL(A) NONE SEEN #/HPF TBH MUCUS URINE SMALL(A) NONE SEEN TBH SQUAMOUS EPITHELIAL CELL URINE MODERATE(A ) NONE/RARE #/LPF TBH CRYSTALS SEEN? None Seen None Seen #/HPF TBH CAST SEEN? NONE SEEN NONE SEEN #/LPF TBH 04/24/2025 10:0 6 AM EDT 04/24/2025 10:13 AM EDT [facility] 10[facility]37 AM EDT Ainsley Sellers NP CLINISYNC Final Result Performing Organization Address [facility] de Phone Number [facility] TB * TBH UA (CLEAN/CATCH) MICROSCOPIC IF INDICATE (04/24/2025 10:06 AM EDT) COLOR URINE LT. YELLOW YELLOW TBH CLARITY URINE CLEAR CLEAR TBH SPECIFIC GRAVITY URINE 1.015 1.005 - 1.025 TBH PH URINE 6.0 5.0 - 9.0 TBH PROTEIN URINE NEGATIVE NEG/TRACE mg/dL TBH GLUCOSE URINE UA NEGATIVE NEGATIVE mg/dL TBH BILIRUBIN URINE NEGATIVE NEGATIVE TBH KETONES URINE NEGATIVE NEGATIVE mg/dL TBH BLOOD URINE TRACE-I NEGATIVE TBH NITRITE URINE NEGATIVE NEGATIVE TBH UROBILINOGEN URINE 0.2 0.2 - 1.0 EU/dL TBH LEUKOCYTE ESTERASE URINE NEGATIVE NEGATIVE TBH URINE MICROSCOPIC INDICATED YES TBH 04/24/2025 10:0 6 AM EDT 04/24/2025 10:13 AM EDT Narrative [facility] - 04/24/2025 10:37 AM EDT us Ainsley Sellers NP CLINISYNC Final Result [facility] TB * POCT glycosylated hemoglobin (Hb A1C) docked device (04/23/2025 3:37 PM EDT) Hemoglobin A1C 5.4 Blood Venous blood specimen / Unknown 04/23/2025 3:37 PM EDT us Ainsley Sellers NP POINT OF CARE TEST ENTER/EDIT O RDERABLES Final Result * XR ABDOMEN 1V (02/12/2025 3:25 PM EDT) Anatomical Region Laterality Modality Other 02/12/2025 3:25 PM EDT Narrative 02/12/2025 3:27 PM EDT [address] [address] XRay Report Signed Patient: SIMONA LO MR#: [id number] : 1980 Acct:[id number] Age/Sex: 44 / F ADM Date: 02/12/25 Loc: RAD Attending Dr: Ainsley Sellers HEEL COVER SOFTENER Ordering Physician: Ainsley Sellers NP Date of Service: 02/12/25 Procedure(s): XR abdomen 1V Accession Number(s): [id number] cc: Ainsley Sellers NP [address] [address] Patient Name: SIMONA LO MRN: [id number] date: 1980 Sex: F Assigned Patient Location: RAD Current Patient Location: RAD Accession/Order Number: [id number] Exam Date: 02/12/2025 15:24 Report Date: 02/12/2025 15:25 At the request of: AINSLEY SELLERS NP Procedure: XR abdomen 1V KUB: CLINICAL INFORMATION: Left flank pain COMPARISON: CT abdomen and pelvis 10/22/2024 FINDINGS: A phlebolith is seen within the pelvis. No suspicious urinary tract calcifications. No bowel obstruction or free air. XR/XR abdomen 1V IMPRESSION: No acute process. Impression dictated by: Alexander Phipps Jr., D.O.02/12/2025 3:25 PM Dictation Location: [place] [address] Electronically authenticated by: [id number] Y Date: 02/12/2025 15:25 Dictated By: Alexander Phipps M.D. Signed By: 02/12/25 1527 DD/ 1525 TD/TT: Recreation Counselor: Procedure Note Radiology, Radiologist, MD - 02/12/2025 [place] [address] XRay Report Signed Patient: SIMONA LO EMR#: [id number] : 1980Acct:[id number] Age/Sex: 44 / FADM Date: 02/12/25 Loc: RAD Attending Dr: Ainsley Sellers NP Ordering Physician: Ainsley Sellers NP Date of Service: 02/12/25 Procedure(s): XR abdomen 1V Accession Number(s): [id number] cc: Ainsley Sellers NP [place] [id number] Patient Name: SIMONA LO MRN: [id number] date: 1980 Sex: F Assigned Patient Location: RAD Current Patient Location: RAD Accession/Order Number: [id number] Exam Date: 02/12/2025 15:24 Report Date: 02/12/2025 15:25 At the request of: AINSLEY SELLERS NP Procedure: XR abdomen 1V KUB: CLINICAL INFORMATION: Left flank pain COMPARISON: CT abdomen and pelvis 10/22/2024 FINDINGS: A phlebolith is seen within the pelvis. No suspicious urinarytract calcifications. No bowel obstruction or free air. XR/XR abdomen 1V IMPRESSION: No acute process. Impression dictated by: Alexander Phipps Jr., D.O.02/12/2025 3:25 PM Dictation Location: [place] [address] Electronically authenticated by: [id number] Y Date: :25 Dictated By: Alexander Phipps M.D. Signed By:02/12/25 1527 DD/ 1525 TD/TT: Recreation Counselor: Ainsley Sellers NP [facility] Final Result * (ABNORMAL) ALL BASIC METABOLIC PANEL (02/08/2025 1:28 PM EDT) SODIUM 140 136 - 145 mmol/L [facility] POTASSIUM 4.3 3.5 - 5.1 mmol/L [facility] CHLORIDE 106 98 - 107 mmol/L [facility] CARBON DIOXIDE 25.2 21.0 - 32.0 mmol/L [facility] ANION GAP 13.1 [facility] GLUCOSE 118(H) 74 - 106 mg/dL [facility] BLOOD UREA NITROGEN 9.0 7.0 - 18.0 mg/dL [facility] CREATININE 1.25(H) 0.55 - 1.02 mg/dL [facility] EGFR-AF DJIBOUTIAN 56(L) >=60 mL/min/1.7 3m 2 TBH TB[facility] EGFR-NON AF DJIBOUTIAN 47(L) >=60 mL/min/1.7 3m 2 [facility] BUN CREATININE RATIO 7.2 [facility] CALCIUM 8.8 8.5 - 10.1 mg/dL [facility] 02/08/2025 1:28 PM EDT 02/08/2025 1:29 PM EDT Narrative [facility] - 02/08/2025 1:48 PM EDT us Ainsley Sellers NP [facility] Final Result [facility] * MM TOMOSYNTHESIS SCREENING BI (11/07/2024 9:25 AM EST) Anatomical Region Laterality Modality Other 11/07/2024 9:25 AM EST Narrative 11/07/2024 9:26 AM EST The [address] [address] Mammography Report Signed Patient: SIMONA LO MR#: [id number] : 1980 Acct:[id number] Age/Sex: 44 / F ADM Date: 11/07/24 Loc: MAMMO Attending Dr: Ainsley Sellers NP Ordering Physician: Ainsley Sellers NP Results: Date of Service: 11/07/24 Follow Up: Procedure(s): MM tomosynthesis screening BI Accession Number(s): [id number] cc: Ainsley Sellers NP Patient Name: SIMONA LO MR#: [id number] : 1980 Exam Date: 11/07/2024 Ordering Doctor: [...] Treatments None Family Cancers None LOCATION: The [facility] BREAST COMPOSITION: There are scattered areas of [...] M.D. Signed By: 11/07/24925 DD/ 4 TD/TT: Recreation Counselor: Procedure Note Radiology, Radiologist, - 11/07/2024 [place] [address] Mammography Report Signed Patient: SIMONA LO EMR#: [id number] : 1980Acct:[id number] Age/Sex: 44 / FADM Date: 11/07/24 Loc: MAMMO Attending Dr: Ainsley Sellers HEEL COVER SOFTENER Ordering Physician: Ainsley Sellers NPResults: Date of Service: 11/07/24Follow Up: Procedure(s): MM tomosynthesis screening BI Accession Number(s): [id number] cc: Ainsley Sellers NP Patient Name: SIMONA LO MR#: [id number] : 1980 Exam Date: 11/07/2024 Ordering Doctor: FADI Sellers TRANSITIONAL CARE MANAGER RADIOLOGY REPORT PROCEDURE: MM TOMOSYNTHESIS SCREENING BI COMPARISON: MM TOMOSYNTHESIS SCREENING BI, 03/30/2022. MMTOMOSYNTHESIS SCREENING BI, 04/15/2023. INDICATIONS: SCREENING FOR BREAST MALIGNANCY Calculator Name NCI Breast Cancer Risk Assessment Tool 5 Year Breast Cancer Risk 0.70% Lifetime Breast Cancer Risk 8.70% Personal Breast Cancer No Personal Ovarian Cancer No Treatments None Family Cancers None LOCATION: The [facility] BREAST COMPOSITION: There are scattered areas of [...] Sanford M.D. Signed By:11/07/24925 DD/ 4 TD/TT: Recreation Counselor: Ainsley Sellers NP [facility] Final Result from Last 3 Months or Most Recently Relevant to Health Maintenance Insurance [employer] Care Teams Skein Winder Relationship Specialty Start Date End Date Quentin Dawn MD [address] [place] [address] PCP - General Family Medicine 11/17/23 Ainsley Sellers NP [address] [place] [address] Nurse Practitioner Family Medicine 11/17/23
--- OUTSIDE RECORDS SUMMARY | 2025-05-01 08:55 | XMS_ITS | Encounter Summary ---
Author Organization [facility] Address [id number] [address] [place] [address] Care Team Providers Care Binding End Stitcher Name Role Phone Verito Ainsley Cb VIDEO RENTAL CLERK-PORCELAIN ENAMELING SUPERVISOR Primary Care Provider Encounter Details Date Type Department Care Team ([facility] Contact Info) Description 04/07/2022 Telephone [facility] Ob[facility]ne[facility] [address] [place] [id number] Marsha Edwards, VIDEO RENTAL CLERK-CNM [address] [place] [address] Social History Tobacco Use Types Packs/Day Years Used Date Smoking Tobacco: Every Day Cigarettes 0.5 24.5 Started: 2000 Smokeless Tobacco: Never Alcohol Use Standard Drinks/Week Comments No 0 (1 standard drink = 0.6 oz pur e alcohol) PHQ-2 Answer Date Recorded Total Score 0 03/19/2021 Childcare Answer Date Recorded Childcare Unknown 04/05/2019 Employment Answer Date Recorded Employment Unknown 04/05/2019 Purpose - Life Answer Date Recorded Purpose and direction in life Unknown Comments No Sex and Gender Information Value Date Recorded Sex Assigned at Not on file Legal Sex Female 11:55 AM EDT Gender Identity Not on file Sexual Orientation Not on file COVID-19 Exposure Response Date Recorded In the last 10 days, have yo u been in contact with someone who was confirmed or suspected to have Coronavirus/COVID-19? No / Unsure 03/30/2022 10:46 AM EDT documented as of this encounter Miscellaneous Notes * Telephone Encounter - Joyce Medina - 04/07/2022 1:09 PM EDT Patient asked if you would be willing to refill her control in the mean time? She missed her appointment today due to being in [place]. Please advise * Telephone Encounter - Joyce Andersonel - 04/07/2022 1:09 PM EDT Patient was scheduled for a control consult, so no prior bc is in chart. I left patient a message explaining she needs to re-schedule appointment to obtain bc. documented in this encounter Plan of Treatment Not on file documented as of this encounter Visit Diagnoses Not on filedocumented in this encounter Additional Health Concerns Infection Onset Date Last Indicated Resolved Time COVID-19 Rule-Out 10/28/2023 10/28/2023 10/28/2023 6:16 PM EST Assessment Noted Time PHQ-9 Depression Total Score: 0 03/19/20 21 2:24 PM EDT A Body Mass Index follow-up plan has been documented for the patient 03/24/2022 4:24 PM EDT documented as of this encounter Care Teams Binding End Stitcher Relationship Specialty Start Date End Date Ainsley Sellers, VIDEO RENTAL CLERK-PORCELAIN ENAMELING SUPERVISOR PCP - General Nurse Practitioner 03/30/22 documented as of this encounter
--- OUTSIDE RECORDS SUMMARY | 2025-05-01 08:55 | XMS_ITS | Encounter Summary ---
Author Organization [facility] Address [id number] [address] [place] [address] Care Team Providers Care Customer Services Manager Name Role Phone GeorginaAinsley velez Cb BD SPECIAL EDUCATION TEACHER-CLICKER OPERATOR Primary Care Provider Reason for Visit * Reason Onset Date Comments Med Refill 04/07/2022 Encounter Details Date Type Department Care Team (Late st Contact Info) Description 04/07/2022 Refill [facility] Ob[facility]etric[facility]ne[facility] [address] [place] [phone] Marsha Edwards, BD SPECIAL EDUCATION TEACHER-[facility] [address] [place] [address], [address] [place], [place] [id number] Social History Tobacco Use Types Packs/Day Years [...] AM EDT documented as of this encounter Plan of Treatment Not on file documented as of this encounter Visit Diagnoses Not on filedocumented in this encounter Additional Health Concerns Infection Onset Date Last Indicated Resolved Time COVID-19 Rule-Out 10/28/2023 10/28/2023 10/28/2023 6:16 PM EST Assessment Noted Time PHQ-9 Depression Total Score: 0 03/19/20 2:24 PM EDT A Body Mass Index follow-up plan has been documented for the patient 03/24/2022 4:24 PM EDT documented as of this encounter Care Teams Customer Services Manager Relationship Specialty Start Date End Date Ainsley Sellers APRN-CLICKER OPERATOR PCP - General Nurse Practitioner 03/30/22 documented as of this encounter
--- OUTSIDE RECORDS SUMMARY | 2025-05-01 08:55 | XMS_ITS | Data Portability ---
Author Organization [facility] [employer] [facility] Address [address] [place] [address] Assessment Encounter Date Assessment Date Assessment LastModified by Organization Details LastModified Time 12/11/2024 12/11/2024 Ddx: Viral gastroenteritis, Gastritis, Colitis, Traveler s diarrhea A: Viral gastroenteritis is determined to be the etiology of current symptoms. Patient without symptoms suggestive of bacterial etiology at this time. P: Provided counseling/treatme nt recommendations as noted below: Rest, hydration Monitor for worsening of nausea, vomiting, diarrhea, dizziness, weakness Medication(s) prescribed: ondansetron [address] 1 tablet 3 times a day by translingual route as needed. Patient to be seen for repeat evaluation if symptoms worsen, counseled on red flag symptoms to indicate need for emergent follow up. Patient expressed understanding and agreement with the treatment plan as outlined. [email or web address] Not available 12/11/2024 15:31:42 02/13/2025 02/13/2025 DDx: Strep pharyngitis, Acute pharyngitis, Mononucleosis, Viral URI A: Strep pharyngitis likely based upon patient s presenting symptoms, including tonsillar exudates, fever, absence of cough and anterior cervical LAD. P: Provided counseling/treatme nt recommendations as noted below: Supportive care including rest, hydration, and fever/pain control Isolation when indicated Smoking cessation Monitor for worsening sore throat, high fever, difficulty swallowing/breathi ng, drooling Referral for Rapid Strep Testing: Ralphor criteria: Age: 3-14 years+1, 15-44 years0, 45 years-1 Exudate or swelling on tonsils: No0, Yes+1 Tender/swollen anterior cervical lymph nodes: No0, Yes+1 Temp >38 C (100.4 F): No0, Yes+1 Cough: Cough present0, Cough absent+1 Antibiotic prescribed: Reviewed expected course of illness with recommended treatment plan Counseled on the importance of follow up if symptoms not improving with recommended treatment plan. Patient to be seen for repeat evaluation if symptoms worsen, counseled on red flag symptoms to indicate need for emergent follow up. Patient expressed understanding and agreement with treatment plan as outlined. [email or web address] Not available 02/13/2025 11:37:22 Plan of Treatment Reminders Order Date Submit Date Provider Last Modified By Organization Details Last Modified Time Details Appointments None recorded. Lab None recorded. Referral None recorded. Procedures None recorded. Surgeries None recorded. Imaging None recorded. Medication Orders fluconazole 150 mg tablet 2024 [facility]53, [address] [place] [address], [id number], 07:54:17 amoxicillin 875 mg tablet 2024 025 [facility]25503, [address] [place] [address], [id number], 5 11:37:25 ondansetron 8 mg disintegrat ing tablet 2024 025 [facility]51923, [address] [place] [address], [id number], 5 11:33:29 doxycycline hyclate 100 mg capsule 2023 025 [facility] #11457, [address] [place] [address], [id number], 5 11:33:22 benzonatate 200 mg capsule 2023 025 [facility] #71639, [address] [place] [address], [id number], 5 11:33:25 prednisone 20 mg tablet 2023 025 [facility] #44275, [address] [place], [place], [id number], 11:33:27 albuterol sulfate HFA 90 mcg/actuati on aerosol inhaler 202316/ 025 [facility]21255, [address] [place], [place], [id number], 11:33:18 Patient TargetsNo targets recorded. Patient Instructions Encounter Date Encounter Id Patient Instructions Last Modified By Organization Details Last Modified Time 10/07/2024 [id number] bronchitis: care instructions [email or web address] Not available 10/07/2024 11:08:04 I advised the patient if their symptoms worsen or do not improve, to call us back or seek in person care. Diagnosis and treatment plan discussed with the patient, and they voice agreement and understanding of the plan. [email or web address] Not available 10/07/2024 11:09:31 02/13/2025 [id number] sore throat: car e instructions [email or web address] Not available 02/13/2025 11:37:42 For worsening symptoms, go to the ER or urgent care. Follow up with PCP in 3-5 days Maintain adequate fluid intake Continue OTC medications according to package directions. [email or web address] Not available 02/13/2025 11:37:29 03/28/2025 [id number] vaginal yeast infection: care instructions [email or web address] Not available 03/28/2025 07:54:01 Reason for Referral None Reported. Medical Equipment None Reported. Allergies Allergen ID Allergen Name Allergen Category Reaction Reaction Severity Criticality Documentation Date Start Date Code Code System Note Provider Name and Address Organization Details Recorded Time 20550709 Benadryl medicatio n Not available Not available Not available 12/11/2024 70207 7 RxNorm Not Available Included [facility] 07:39:49 35201 codeine medicatio n Not available Not available Not available 10/07/2024 2670 RxNorm Not Available Included [facility] 07:39:49 Medications Name Sig Start Date Stop Date Status Note LastModified by Organization Details LastModified Time fluoxetine 40 mg capsule active ADDED BY PATIEN T: Once daily Not Available Not Available Not Available doxycyclin e hyclate 100 mg capsule Take 1 capsule twice a day by oral route for 7 days. 02/13 completed [NOT TAKING ] Not Available Not Available Not Available fluconazol e 150 mg tablet Take 1 tablet by mouth now and repeat in 3 days if still symptomat ic 2024 active Not Available Not Available Not Avai lable benzonatat e 200 mg capsule Take 1 capsule 3 times a day by oral route as needed for 10 days. 02/13 completed [NOT TAKING ] Not Available Not Available Not Available prednisone 20 mg tablet Take 1 tablet every day by oral route for 5 days. 02/13 completed [NOT TAKING ] Not Available Not Available Not Available ondansetro n 8 [address] ting tablet Place 1 tablet 3 times a day by transling ual route as needed. 02/13 completed [NOT TAKING ] Not Available Not Available Not Available amoxicilli n 875 mg tablet Take 1 tablet every 12 hours by oral route for 10 days. 2024 active Not Available Not Available Not Avai lable albuterol sulfate HFA 90 mcg/actuat ion aerosol inhaler Inhale 2 puffs every 4 hours by inhalatio n route as needed. 02/13 completed [NOT TAKING ] Not Available Not Available Not Available nitrofuran toin monohydrat e/macrocry stals 100 mg capsule 06/01 completed Not Available Not Available Not Available trazodone active Not Available Not Veronica ilable Not Available Xanax 0.25mg 07/26 completed Not Available Not Available Not Available UNLISTED MEDICATION [Migrated medicatio n name:] Cyclobenz aprine:: 02/13 completed [NOT TAKING ] Not Available Not Available Not Available UNLISTED MEDICATION [Migrated medicatio n name:] Amoxicill in-Clavul anate 875 mg-125 mg tablet::8 75 mg-125 mg 12/30 completed Not Available Not Available Not Available UNLISTED MEDICATION [Migrated medicatio n name:] Oxycodone :: 02/13 completed [NOT TAKING ] Not Available Not Available Not Available UNLISTED MEDICATION [Migrated medicatio n name:] Cephalexi n:: 02/13 completed [NOT TAKING ] Not Available Not Available Not Available UNLISTED MEDICATION [Migrated medicatio n name:] Benzonata te 100 mg capsule:: 0 07/26 completed Not Available Not Available Not Available UNLISTED MEDICATION [Migrated medicatio n name:] Gabapenti n:: 12/30 completed Not Available Not Available Not Available UNLISTED MEDICATION [Migrated medicatio n name:] Nitrofura ntoin Macrocrys tals-Sutter hydrate 100 mg capsule:: 100 mg 03/24 completed Not Available Not Available Not Available UNLISTED MEDICATION [Migrated medicatio n name:] Trazodone :: active Not Available Not Available No t Available UNLISTED MEDICATION [Migrated medicatio n name:] Diflucan 150 mg tablet:: 02/13 completed [NOT TAKING ] Not Available Not Available Not Available UNLISTED MEDICATION [Migrated medicatio n name:] Fluoxetin e:: 02/13 completed Not Available Not Available Not Available guaifenesi n ER 600 mg tablet, extended release 12 hr 07/26 completed Not Available Not Available Not Available Vitals None Recorded Social History None recorded. Functional Status None recorded. Mental Status None recorded. Family History Nothing Reported. Medical History No medical history recorded. Gynecological HistoryNo gynecological history recorded. Obstetrics History GPAL:G 0 P 0 0 0 0 Past Encounters Encounter ID Performer Location Encounter Start Date Encounter Closed Date Diagnosis/Indication Diagnosis SNOMED-CT Code Diagnosis ICD10 Code Diagnosis Note [id number] Reanna Horne [address] [place] [address] 10/07/2024 11:02:43 10/07/2024 17:09:42 Acute bronchitis 50578270 J20.9 Acute bact erial sinusitis 30358623 J01.90 [id number] Berta Olson [address] [place] [address] 12/11/2024 15:26:11 12/11/2024 15:32:00 Viral gastroenteritis 497290675 A08.4 [id number] Florencia Perry [address] [place] [address] 02/13/2025 11:32:43 02/13/2025 11:42:15 Acute bacterial pharyngitis 926722641 J02.8 B96.89 May continue OTC remedies for symptom management , as well as teas with honey, steam showers, humidifier and lozenges. [id number] Casey Freed, [facility] [address] [place] [address] 03/28/2025 07:51:16 03/28/2025 08:01:34 Candidal vulvovaginitis 97893912 B37.31 Ddx: Vaginitis, Bacterial Vaginosis, Vulvovagin al candidiasi s Yeast infection - The patient reports a history of yeast infections , and current symptoms include itchiness, white thick discharge, and a crampy feeling, which began the previous day. - Prescribed Fluconazol e: One tablet now and repeat in three days if needed.- Prescripti on will be sent to the pharmacy at [address] [place] [address].-Mo nitor for fever, abdominal pain, worsening symptoms Counseled on the importance of follow up if symptoms not improving with recommende d treatment plan. Patient to be seen for repeat evaluation if symptoms worsen, counseled on red flag symptoms to indicate need for emergent follow up. Patient expressed understand ing and agreement with treatment plan as outlined. Health Concerns Section Related Observation LastModified by Organization Detai ls LastModified Time None Recorded Concern Status LastModified by Organization Details LastModified Time None Recorded Advance Directives Directive None Recorded Payers Insurance Date Sequence Insurance Name Policy Number Policy Light Covered Member ID Light Member ID Guarantor Name 10/07/2024 2 *SELF PAY* [id number] Eliezer Brownuirre [id number] Eliezer Cameronrroscar 10/07/2024 1 *SELF PAY* Colin Jordan 03/28/2025 [facility] [id number] Eliezer Brownuirre [id number] Eliezer Brownuirre 04/01/2025 1 [facility] [id number] Eliezer Brownuirre [id number] Eliezer Jordan Notes Date Note Type Note Provider Name and Address Organization Details Recorded Time 4 text/html Onset and duration of symptoms: weekSymptoms:Fever (Tmax):noSore throat:yesCough:yesSputum production:yesNasal congestion:yesRunny nose:yes. purulent mucusPost nasal drip:yesSOB:yesWheezing:y esEar pain/pressure:noChest pain:yes Tobacco use / e-cig / vaping:yesKnown sick contacts: Current control method:LMP::noBre astfeeding:no OTC medications used:robitussin cold and coughRecent antibiotic use:noRecent steroid use:noRecent influenza:noHistory of allergies, asthma, seasonal/allergic rhinitis: noIf YES, medications used:History of past URIs, bronchitis, pneumonia: yesHistory of COPD:noHistory of immunocompromise:noHistor y of COVID-19:no Vaccination history:COVID-19:noInflue nza:noPneumococcal: BOOGIE Cerda [address], [address], [facility] 10/07/2024 11:09:46 5 text/html Call connected, patient greeted. Patient name, , telephone number and location verified verbally with the patient. Telemedicine limitations reviewed, answered all questions the patient had about the telehealth interaction, and verbal consent obtained to treat. Clinician attests they are physically located in [place] at the time of visit Pt presents with c/o N/V/D beginning this morning. took pepto, tylenol without relief BOOGIE Barr 1 [facility] [address] [place] [address], [address], [facility] 12/11/2024 15:31:57 5 text/html Patient Name , location and phone confirmed. Telemedicine limitation evaluations reviewed, all questions answered, and verbal consent obtained to treat via telemedicine. Clinician attests they are physically located in the following state at the time of visit: [place] Patient and/or guardian has consented to the use of AI Scribe documentationPatient denies or breastfeedingLMP within last 3 weeks or postmenopausal CC: Sore throat and cough HPI: The patient presents with symptoms that began on Tuesday night, including a sensation of a lump in the throat, a wet cough, and a notable lump behind the ear. Additionally, the patient reports a fever of 102 F, along with body aches and a sore throat, describing it as having white patches on the right tonsil. The patient notes that these symptoms have progressively worsened over the duration since onset. The severity of the sore throat is significant, causing notable discomfort. The patient suspects exposure from their daughter, who exhibits similar symptoms, particularly a bad throat condition. The patient has been taking Tylenol to manage symptoms but has not found significant relief. The patient denies experiencing any stomach issues such as nausea, suggesting that despite the throat infection, other symptoms remain localized to the upper respiratory tract. No request for a work note was made, as they are currently not working. The patient plans to monitor their daughter's condition and may seek medical attention if required. Florencia Perry, PULP BEATER 1 [facility] [address], [place], [address], [facility] [employer] 02/13/2025 11:38:12 5 text/html Call connected, patient greeted. Patient name, , telephone number, and location verified verbally with the patient. Telemedicine limitations reviewed, answered all questions the patient had about the telehealth interaction, and verbal consent obtained to treat. Clinician attests they are physically located in the following state at the time of visit: [place] The patient also consents to the use of AI scribe technology CC: Yeast infection HPI: The patient presents with symptoms indicative of a vaginal yeast infection, which began yesterday. The patient describes the symptoms as a notable itchiness and the presence of thick, white discharge. Additionally, there is a report of mild cramping. The patient confirms they are currently menstruating. There is a documented history of yeast infections occurring a couple of times each year, although the patient has not been on any prescription medications for several months. The patient denies experiencing nausea, vomiting, diarrhea, abdominal pain, fever, or UTI-like symptoms such as urgency, frequency, or burning during urination. The patient denies recent exposure to antibiotics, which can sometimes predispose individuals to yeast infections. Casey Freed, PULP BEATER 1 [facility] [address], [place], [address], [place] [facility] 03/28/2025 07:57:24 OBGyn Episode No OBEpisode recorded.
--- OUTSIDE RECORDS SUMMARY | 2025-05-01 08:55 | XMS_ITS | Encounter Summary ---
Author Organization [facility] Address [address] [place] [address] Care Team Providers Care Telecommunications Line Installer Name Role Phone Quentin Dawn MD Primary Care Provider [phone] Ainsley Sellers JOURNEYMAN POWERHOUSE OPERATOR Unavailable [phone] Encounter Details Date Type Department Care Team (Late st Contact Info) Description 12/19/2024 Orders Only [facility] [address] [place] [address] Ángela Bennett MD [address] [facility] [address] [place] [address] Social History Tobacco Use Types Packs/Day Years [...] file 11/15/2023 How often do you attend methodist or gnosticist serv ices? Patient declined 11/15/2023 Do you belong to any clubs o r organizations such as methodist groups, unions, fraternal or athletic groups, or [...] Recorded Patient Health Questionnaire-2 Score 3 11/15/2024 Exercise Vital Sign Answer Date Recorde d [...] place to sleep or slept in a detention (including now)? Patient refused 11/15/2023 Comments Unknown [...] 2:40 PM EDT Office Visit [facility] [address] [place] [address] Ainsley Sellers NP [address] [place] [address] 06/12/2025 9:00 AM EDT Office Visit [facility] [address] [place] [address] Ainsley Sellers NP [address] [place] [address] documented as of this encounter Procedures Procedure Name Priority Date/Time Associated Diagnosis Comments COLONOSCOPY Routine 12/19/2024 1:40 PM EST SCANNED LABS Routine 12/19/2024 1:37 PM EST documented in this encounter Results * Colonoscopy (12/19/2024 1:40 PM EST) Anatomical Region Laterality Modality Endoscopy Ángela Bennett MD ENDOSCOPY PROCEDURE ORDERABLES F inal Result * SCANNED LABS (12/19/2024 1:37 PM EST) us Ángela Bennett MD LAB CHG PERFORMABLES Final Resul t documented in this encounter Visit Diagnoses Not on filedocumented in this encounter Additional Health Concerns Assessment Noted Time PHQ-9 Depression Total Score: 19 025 9:33 AM EST documented as of this encounter Care Teams Telecommunications Line Installer Relationship Specialty Start Date End Date Quentin Dawn MD [address] [place] [phone] PCP - General Family Medicine 11/17/23 Ainsley Sellers NP [address] [place] [address] Nurse Practitioner Family Medicine 11/17/23 documented as of this encounter
--- OUTSIDE RECORDS SUMMARY | 2025-05-01 08:55 | XMS_ITS | Encounter Summary ---
Author Organization [facility] Address [address] [place] [address] Care Team Providers Care Coal Yard Supervisor Name Role Phone Quentin Dawn MD Primary Care Provider [phone] Ainsley Sellers TESTING ANALYST Unavailable [phone] Encounter Details Date Type Department Care Team ([facility] Contact Info) Description 04/26/2025 Orders Only [facility] [address] [place] [address] Ainsley Sellers TESTING ANALYST [address] [place] [address] Microscopic hematuria (Primary Dx) Social History Tobacco Use Types Packs/Day Years [...] often do you attend chur ch or baptism services? Never 03/11/2025 Do you belong to [...] Recorded Patient Health Questionnaire-2 Score 3 11/15/2024 [facility] - Occupational [...] a intermediate (including now)? Patient refused 11/15/2023 Housing Stability Vital Sign Answer Neto e Recorded In the last 12 months, was t here a time when you were not able to pay the mortgage or rent on time? No 03/11/2025 Number of Times Moved in the Last Year Not on fi le 03/11/2025 At any time in the past 12 m [facility], were you homeless or living in a intermediate (including now)? No 03/11/2025 Comments Unknown Sex [...] Visit [facility] [address] [place] [address] Ainsley Sellers NP [address] [place] [address] 06/12/2025 9:00 AM EDT Office Visit [facility] [address] [place] [address] Ainsley Sellers, ALESSIO [address] [place] [phone] Scheduled Orders Name Type Priority Associated Diagnoses Orde r Schedule XR ABDOMEN 2 VIEW Imaging Routine Microscopic hematuria Expected: 04/26/2025, Expires: 04/26/2026 documented as of this encounter Visit Diagnoses Diagnosis Microscopic hematuria- Primary documented in this encounter Additional Health Concerns Assessment Noted Time PHQ-9 Depression Total Score: 19 025 9:33 AM EST documented as of this encounter Care Teams Coal Yard Supervisor Relationship Specialty Start Date End Date Quentin Dawn MD [address] [place] [address] PCP - General Family Medicine 11/17/23 Ainsley Sellers, ALESSIO [address] [place] [address] Nurse Practitioner Family Medicine 11/17/23 documented as of this encounter
--- OUTSIDE RECORDS SUMMARY | 2025-05-01 08:55 | XMS_ITS | Encounter Summary ---
Author Organization [facility] Address [address] [place] [address] Care Team Providers Care Mail Truck Driver Name Role Phone Quentin Dawn MD Primary Care Provider [phone] Ainsley Sellers HUMAN RESOURCES OPERATIONS SPECIALIST Unavailable [phone] Encounter Details Date Type Department Care Team (Late Contact Info) Description 04/24/2025 Clinisync Result Encounter [facility] External Department Unsolicited Ainsley Sellers, HUMAN RESOURCES OPERATIONS SPECIALIST [address] [place] [address] Social History Tobacco Use Types Packs/Day Years [...] 03/11/2025 How often do you attend chur or hinduism services? Never 03/11/2025 Do you belong to any clubs o r organizations such as restoration groups, unions, fraternal or athletic groups, or [...] Recorded Patient Health Questionnaire-2 Score 3 11/15/2024 [facility] - Occupational Stress [...] place to sleep or slept in a longterm (including now)? Patient refused 11/15/2023 Housing Stability Vital Sign Answer Neto e Recorded In the last 12 months, was t here a time when you were not able to pay the mortgage or rent on time? No 03/11/2025 Number of Times Moved in the Last Year Not on fi le 03/11/2025 At any time in the past 12 m [facility], were you homeless or living in a longterm (including now)? No 03/11/2025 Comments Unknown Sex [...] Visit [facility] [address] [place] [address] Ainsley Sellers NP [address] [place] [address] 06/12/2025 9:00 AM EDT Office Visit [facility] [address] [place] [address] Ainsley Sellers, ALESSIO [address] [place] [address] documented as of this encounter Procedures Procedure Name Priority Date/Time Associated Diagnosis Comments [facility] CMP (CMP) (FOR REMOTE [facility] USE) Routine 04/24/2025 10:11 AM EDT ALL LIPID PROFILE (FASTING) Routine 04/24/2025 10:11 AM EDT [facility] URINE MICROSCOPIC ONLY Routine 04/24/2025 10:06 AM EDT [facility] UA (CLEAN/CATCH) MICROSCOPIC IF INDICATE Routine 04/24/2025 10:06 AM EDT documented in this encounter Results * (ABNORMAL) ALL LIPID PROFILE (FASTING) (04/24/2025 [...] 26.0 mg/dL TB CHOL HDL RATIO 6.4 TB Comment: 3.3 - 4.4 LOW RISK 4.4 - 7.1 AVERAGE RISK 7.1 - 11.0 MODERATE RISK >11.0 HIGH RISK 04/24/2025 10:1 1 AM EDT 04/24/2025 10:13 AM EDT Narrative [facility] - 04/24/2025 11:03 AM EDT us Ainsley Aichholz HUMAN RESOURCES OPERATIONS SPECIALIST [facility] Final Result [facility] * (ABNORMAL) [facility] CMP (CMP) (FOR REMOTE [facility] USE) (04/24/2025 10:11 AM EDT) SODIUM 137 136 - 145 mmol/L TBH POTASSIUM 4.7 3.5 - 5.1 mmol/L [facility] CHLORIDE 105 98 - 107 mmol/L TBH CARBON DIOXIDE 24.3 21.0 - 32.0 mmol/L TBH ANION GAP 12.4 TBH GLUCOSE 109(H) 74 - 106 mg/dL TBH BLOOD UREA NITROGEN 15.0 7.0 - 18.0 mg/dL TBH CREATININE 1.08(H) 0.55 - 1.02 mg/dL TBH TBH EGFR-AF BOLIVIAN >60 >=60 mL/min/1. 73m 2 TBH TBH EGFR-NON AF BOLIVIAN 55(L) >=60 mL/min/1. 73m 2 TBH BUN [...] Narrative [facility] - 04/24/2025 11:03 AM EDT us Ainsley Sellers NP [facility] Final Result [facility] * (ABNORMAL) TBH URINE MICROSCOPIC [...] us Ainsley Sellers NP [facility] Final Result Performing Organization Address City/[facility] Co de Phone Number [facility] * [facility] UA (CLEAN/CATCH) MICROSCOPIC IF INDICATE [...] Ainsley Sellers NP [facility] Final Result [facility] documented in this encounter Visit Diagnoses Not on filedocumented in this encounter Additional Health Concerns Assessment Noted Time PHQ-9 Depression Total Score: 19 01/16/2 025 9:33 AM EST documented as of this encounter Care Teams Mail Truck Driver Relationship Specialty Start Date End Date Quentin Dawn MD [address] [place] [address] PCP - General Family Medicine 11/17/23 Ainsley Sellers NP [address] [place] [address] Nurse Practitioner Family Medicine 11/17/23 documented as of this encounter
--- OUTSIDE RECORDS SUMMARY | 2025-05-01 08:55 | XMS_ITS | Clinical Summary ---
Author Organization [facility] Address [id number] [place] [address] Care Team Providers Care Applications Project Manager Name Role Phone Ainsley Sellers APRN-SUPERVISOR [employer] Primary Care Provider Allergies Active Allergy Reactions Criticality Noted Date Comments Diphenhydramine Hcl Hallucinations Low 05/06/2017 Codeine Hives Medium 05/06/2017 Medications albuterol (PROVENTIL HFA;VENTOLIN HFA) 90 mcg/actuation inhaler Inhale 2 puffs every 4 (four) hours as needed for wheezing. 4 Active SUTAB 1.479-0.188- 0.225 gram tablet TAKE 12 TABLETS BY MOUTH TWICE DAILY FOR 1 DAY. TAKE FIRST DOSE AT 3 PM THE DAY BEFORE COLONOSCOPY AND SECOND DOSE AT 9 PM EVENING BEFORE 5 Active traZODone (DESYREL) 50 mg tablet Take 1 tablet (50 mg total) by mouth nightly. 4 Active ALPRAZolam (XANAX) 0.25 mg tablet Take 1 tablet (0.25 mg total) by mouth in the morning. 5 Active FLUoxetine (PROzac) 40 mg capsule Take 1 capsule (40 mg total) by mouth in the morning. 4 Active Active Problems Problem Noted Date Diagnosed Date Arthropathy of shoulder region 11/23/2024 Overview (11/23/2024): 716.91 [id number] DOI 08/31/09 Bicipital tenosynovitis 11/23/2024 Overview (11/23/2024): 726.12 [id number] DOI 08/31/09 Esophageal reflux 11/23/2024 Partial thickness rotator cuff tear 11/23/2024 Overview (11/23/2024): 840.4 -336940 DOI 08/31/09 Current moderate episode of major depressive disorder without prior episode 11/15/2024 Overview (11/23/2024): PHQ 9 score= 19 on 11/15/24 Cyst of right ovary 11/01/2024 Acute urinary retention 07/25/2024 Rib pain on right side 06/26/2024 Diverticulitis 03/29/2024 Bunion, left 10/06/2023 Tenosynovitis, de Quervain 10/06/2023 Anxiety 10/06/2023 Overview (11/23/2024): Med agreement: 11/15/24 CRISTAL 7 score=19 PHQ 9 score=19 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 10/06/2023 Hot flashes 10/06/2023 Insomnia 10/06/2023 Leg pain, bilateral 10/06/2023 Obesity (BMI 30-39.9) 10/06/2023 Osteoarthritis of hip 10/06/2023 Peripheral polyneuropathy 10/06/2023 Sciatica 10/06/2023 Stage 3a chronic kidney disease (CKD) 10/06/2023 Smoker 03/24/2022 Overview (03/24/2022): Encouraged cessation Hypertrophy of tonsils 03/19/2021 Chronic tonsillitis 03/19/2021 Encounters Date Type Department Care Team Description 03/15/2025 3:32 PM EDT - 03/15/2025 4:17 PM EDT Emergency [facility] Emergency [address] [place] [phone] Contusion of left wrist, initial encounter (Primary Dx) Discharge Disposition: Home 03/15/2025 Travel 02/07/2025 2:40 PM EDT - 02/07/2025 11:59 PM EDT Hospital Encounter [facility] - Lab [address] [place] [address] DUB (dysfunctional uterine bleeding) Discharge Disposition: Home 02/07/2025 Travel from Last 3 Months Family History Medical History Relation Name Comments Diabetes Father Heart disease Father Uterine cancer Mother Breast cancer Neg Hx Colon cancer Neg Hx Ovarian cancer Neg Hx Relation Name Status Comments Father Alive Mother Alive Social History Tobacco Use Types Packs/Day Years Used Date Smoking Tobacco: Every Day Cigarettes 0.5 24.5 Started: 2000 Smokeless Tobacco: Never Tobacco Cessation:Ready to Q uit: Not Asked; Counseling Given: Not Answered Alcohol Use Standard Drinks/Week Comments No 0 (1 standard drink = 0.6 oz pur e alcohol) PHQ-2 Answer Date Recorded Total Score 13 11/23/2024 Childcare Answer Date Recorded Childcare Unknown 04/05/2019 Employment Answer Date Recorded Employment Unknown 04/05/2019 Hunger Screening Answer Date Recorded Within the past 12 months we worried whether our food would run out before we got money to buy more. Never True 03/15/2025 Within the past 12 months th e food we bought just didn't last and we didn't have money to get more. Never True 03/15/2025 Purpose - Life Answer Date Recorded Purpose and direction in life Unknown Comments No Sex and Gender Information Value Date Recorded Sex Assigned at Not on file Legal Sex Female 11:55 AM EDT Gender Identity Not on file Sexual Orientation Not on file Last Filed Vital Signs Vital Sign Reading Time Taken Comments Blood Pressure 150/82 03/15/2025 3:42 PM EDT Pulse 96 03/15/2025 3:42 PM EDT Temperature 36.7 C (98 F) 03/15/2025 3:42 PM EDT Respiratory Rate 18 03/15/2025 4:12 PM EDT Oxygen Saturation 96% 03/15/2025 3:42 PM EDT Inhaled Oxygen Concentration - - Weight 83.9 kg (185 lb) 03/15/2025 3:42 PM EDT Height 162.6 cm (5' 4 ) 03/15/2025 3:42 PM EDT Body Mass Index 31.76 03/15/2025 3:42 PM EDT Plan of Treatment Health Maintenance Due Date Last Done Comments Tobacco Counseling 1980 DTaP,Tdap and Td Vaccines (1 - Tdap) 1999 Mammogram 04/15/2024 04/15/2023, 03/30/2022 Adult BMI Follow Up Plan 04/26/2024 04/26/2023 COVID-19 Vaccine (4 - 2023-2 5 season) 2024 09/03/2022, 04/12/2021, 03/15/2021 Influenza Vaccine 07/01/2025 09/03/2022, , 09/04/2010, Additional history exists Depression Screening 11/23/2025 11/23/2024 Adult BMI Screening 03/15/2026 03/15/2025 Tobacco Screening 03/15/2026 03/15/2025 Pap Smear 11/23/2027 11/23/2024, 11/01, 03/24/2022, Additional history exists Medical Devices Not on file Procedures Procedure Name Priority Date/Time Associated Diagnosis Comments XR WRIST LT MIN 3 VWS STAT 03/15/2025 3:55 PM EDT CBC (NO DIFF) Routine 02/07/2025 2:55 PM EDT DUB (dysfunctional uterine bleeding) FOLLICLE STIMULATING HORMONE Routine 02/07/2025 2:55 PM EDT DUB (dysfunctional uterine bleeding) HCG-BETA, SERUM Routine 02/07/2025 2:55 PM EDT DUB (dysfunctional uterine bleeding) LUTEINIZING HORMONE Routine 02/07/2025 2 :55 PM EDT DUB (dysfunctional uterine bleeding) PROLACTIN Routine 02/07/2025 2:55 PM EDT DUB (dysfunctional uterine bleeding) T4, FREE Routine 02/07/2025 2:55 PM EDT DUB (dysfunctional uterine bleeding) TSH Routine 02/07/2025 2:55 PM EDT DUB (dysfunctional uterine bleeding) HIGH RISK HPV W/WALT Routine 11/23/2024 4:15 AM EST Women's annual routine gynecological examination Cervical cancer screening MAMM SCREENING BILATERAL W CAD Routine 04/15/2023 1:09 PM EDT Encounter for screening mammogram for malignant neoplasm of breast from Last 3 Months or Most Recently Relevant to Health Maintenance Results * X-ray wrist left minimum 3 views (03/15/2025 3:55 PM EDT) Anatomical Region Laterality Modality MSK, Upper Extremities, Wrist Left Co mputed Radiography 03/15/2025 3:57 PM EDT Narrative 03/15/2025 3:58 PM EDT HISTORY: Pain, swelling, injury COMPARISON: None FINDINGS: Multiple views of the left wrist were obtained. Osseous structures are intact. No acute malalignment. No significant soft tissue abnormality. IMPRESSION: * No acute abnormality. Finalized by Jitendra Childs MD on 03/15/2025 3:58 PM Procedure Note Jitendra Childs MD - 03/15/2025 HISTORY: Pain, swelling, injury COMPARISON: None FINDINGS: Multiple views of the left wrist were obtained. Osseousstructures are intact. No acute malalignment. No significant soft tissueabnormality. IMPRESSION: * No acute abnormality. Finalized by Jitendra Childs MD on 03/15/2025 3:58 PM us Nita Muller ROVING TELLER-SUPERVISOR [employer]ENT[employer] IMG DIAGNOSTIC IMAGIN G ORDERABLES Final Result * Prolactin (02/07/2025 2:55 PM EDT) Prolactin 10.5 3.3 - 26.7 ng/mL 02/07/2025 6:28 PM EDT [facility] PLASMA 02/07/2025 2:55 PM EDT 02/07/2025 2:57 PM EDT us Denise Cobb MD LAB BLOOD ORDERABLES Final Res ult [facility] [address], [address] [place] [address] * CBC without diff (02/07/2025 2:55 PM EDT) White Blood Cells 10.0 4.0 - 11.0 X10E9/L 02/07/2025 5:54 PM EDT [facility] RBC count 4.47 3.80 - 5.20 X10E12/L 02/07/2025 5:54 PM EDT [facility] Hemoglobin 15.2 11.7 - 15.5 g/dL 02/07/2025 5:54 PM EDT [facility] Hematocrit 44.3 35 - 47 % 02/07/2025 5:54 PM EDT [facility] MCV 99 80 - 100 fL 02/07/2025 5:54 PM EDT [facility] MCH 34.0 27 - 34 pg 02/07/2025 5:54 PM EDT [facility] MCHC 34.4 32 - 36 g/dL 02/07/2025 5:54 PM EDT [facility] RDW 13.9 11.5 - 15.0 % 02/07/2025 5:54 PM EDT [facility] Platelets 285 150 - 450 X10E9/L 02/07/2025 5:54 PM EDT [facility] MPV 9.3 7 - 12 fL 02/07/2025 5:54 PM EDT [facility] Blood / Unknown 02/07/2025 2 :55 PM EDT 02/07/2025 2:57 PM EDT us Denise Cobb MD LAB BLOOD ORDERABLES Final Res ult [facility] [address], [address] [place] [address] * HCG, Quantitative, (02/07/2025 2:55 PM EDT) Hcg-beta, serum <5 mIU/mL 6:18 PM EDT [facility] Comment: NEW REFERENCE RANGE WEEKS (SINCE LMP) MIU/mL 3 WEEKS [...] necessarily diagnostic for trophoblastic or nontrophoblastic neoplasms. PLASMA 02/07/2025 2:55 PM EDT 02/07/2025 2:57 PM EDT us Denise Cobb MD LAB BLOOD ORDERABLES Final Res ult Performing Organization Address City/[facility]/ZIP Co de Phone Number [facility] [address], [address] [place] [address] * TSH (02/07/2025 2:55 PM EDT) TSH 1.89 0.49 - 4.67 uIU/mL 02/07/2025 6:22 PM EDT [facility] PLASMA 02/07/2025 2:55 PM EDT 02/07/2025 2:57 PM EDT Denise Cobb MD LAB BLOOD ORDERABLES Final Res ult [facility] [address], [address] [place] [address] * T4, free (02/07/2025 2:55 PM EDT) T4, free 1.05 0.61 - 1.60 ng/dL 02/07/2025 6:24 PM EDT [facility] PLASMA 02/07/2025 2:55 PM EDT 02/07/2025 2:57 PM EDT us Denise Cobb MD LAB BLOOD ORDERABLES Final Res ult Performing Organization Address [facility]/ZIP Co de Phone Number [facility] [address], [address] [place] [address] * Luteinizing hormone (02/07/2025 2:55 PM EDT) Luteinizing hormone 5.7 mIU/mL 02/07/2025 6:49 PM EDT [facility] Comment: NORMAL FEMALE Follicular 2.1-10.9 mIU/mL Mid Cycle 19.2-103 mIU/mL Luteal 1.2-12.9 mIU/mL Post [place] 10.9-58.6 mIU/mL PLASMA 02/07/2025 2:55 PM EDT 02/07/2025 2:57 PM EDT us Denise Cobb MD LAB BLOOD ORDERABLES Final Res ult [facility] [address], [address] [place] [address] * Follicle stimulating hormone (02/07/2025 2:55 PM EDT) Follicle stimulating hormone 3.3 mIU/mL 02/07/2025 6:47 PM EDT [facility] Comment: NORMAL FEMALE Luteal 1.8-5.1 mIU/mL Follicular 3.8-8.8 mIU/mL Mid Cycle 4.5-22.5 mIU/mL Post [place] 16.7-113.6 mIU/mL PLASMA 02/07/2025 2:55 PM EDT 02/07/2025 2:57 PM EDT us Denise Cobb MD LAB BLOOD ORDERABLES Final Res ult Performing Organization Address City/[facility]/ZIP Co de Phone Number [facility] [address] [place] [address], [address] [address] * (ABNORMAL) High risk HPV w/walt (11/23/2024 4:15 AM EST) Hpv specimen type ThinPrep 11/26/2024 4:16 AM EST [facility] Hpv 16 Negative Negative^ Negative 11/26/2024 2:09 PM EST [facility] Hpv 18 Negative Negative^ Negative 11/26/2024 2:09 PM EST [facility] Other high risk hpv Positive(A) Negative^ Negative 11/26/2024 2:09 PM EST [facility] Comment: For the DNA of any or combination of the following HPV types: 31,33,35,45, 52,56,58,59,66 and 68. THINP 11/23/2024 4:15 AM EST 11/26/2024 4:16 AM EST us Aicha Casey APRN-SUPERVISOR [employer] LAB BLOOD ORDERABLE S Final Result Performing Organization Address City/[facility]/ZIP Co de Phone Number [facility] [address] [place] [address], FIRST [address] [place], [place] [id number] [place] [address] [place] [address], [address] [place] [address] * Mammography screening bilateral with CAD (04/15/2023 1:09 PM EDT) Anatomical Region Laterality Modality Breast Bilateral Mammography 04/18/2023 9:13 AM EDT Narrative 04/18/2023 9:16 AM EDT History: Screening mammogram Technique: Digital mammographic images of both breasts were obtained in CC and MLO projections. Computer-aided detection was utilized. Bilateral tomosynthesis was obtained in both projections. Comparison: 03/30/2022 Breast Composition: There are scattered areas of fibroglandular density. Findings: There is no evidence of dominant mass lesion, clustered suspicious microcalcifications, architectural distortion, or other findings in either breast to suggest the presence of malignancy. Impression: Both breasts negative for evidence of malignancy by digital mammography. A screening mammogram in one year is recommended. ACR Category: BIRADS 1 - Negative. Finalized by Richard Horowitz MD on 04/18/2023 9:16 AM 1 b MAMM 1 YR Procedure Note Richard Horowitz MD - 04/18/2023 History: Screening mammogram Technique: Digital mammographic images of both breasts were obtained in CCand MLO projections. Computer-aided detection was utilized. Bilateraltomosynthesis was obtained in both projections. Comparison: 03/30/2022 Breast Composition: There are scattered areas of fibroglandulardensity. Findings: There is no evidence of dominant mass lesion, clusteredsuspicious microcalcifications, architectural distortion, or otherfindings in either breast to suggest the presence of malignancy. Impression: Both breasts negative for evidence of malignancy by digitalmammography. A screening mammogram in one year is recommended. ACR Category: BIRADS 1 - Negative. Finalized by Richard Horowitz MD on 04/18/2023 9:16 AM 1 b MAMM 1 YR Ainsley Abebe ROVING TELLER-SUPERVISOR [employer] IMG MAMMOGRAPHY ORDERABL ES Final Result from Last 3 Months or Most Recently Relevant to Health Maintenance Insurance [employer] WORKER'S COMPENSATION WORKER'S COMPENSATION [employer] Care Teams Applications Project Manager Relationship Specialty Start Date End Date Ainsley Sellers APRN-SUPERVISOR [employer] PCP - General Nurse Practitioner 03/30/22
--- OUTSIDE RECORDS SUMMARY | 2025-05-01 08:55 | XMS_ITS | Encounter Summary ---
Author Organization [facility] Address [address] [place] [address] Care Team Providers Care Editing Computer Publisher Name Role Phone Quentin Dawn MD Primary Care Provider [phone] Ainsley Sellers UX RESEARCHER Unavailable [phone] Encounter Details Date Type Department Care Team (Late st Contact Info) Description 06/27/2024 Clinisync Result Encounter [facility] External Department Unsolicited Ainsley Sellers, UX RESEARCHER [address] [place] [address] Social History Tobacco Use Types Packs/Day Years [...] file 11/15/2023 How often do you attend confucianism or quaker serv ices? Patient declined 11/15/2023 Do you belong to any clubs o r organizations such as confucianism groups, unions, fraternal or athletic groups, or [...] place to sleep or slept in a long term (including now)? Patient refused 11/15/2023 Comments Unknown [...] EDT Office Visit [facility] [place] [address] [place] [address] Ainsley Sellers NP [address] [place] [address] 06/12/2025 9:00 AM EDT Office Visit [facility] [place] [facility] [address] [place] [address] Ainsley Sellers NP [address] [place] [address] documented as of this encounter Procedures Procedure Name Priority Date/Time Associated Diagnosis Comments XR RIBS RT 3 VWS W PA CHEST 06/27/2024 10:06 AM EDT documented in this encounter Results * XR RIBS RT 3 VWS W PA CHEST (06/27/2024 10:06 AM EDT) Anatomical Region Laterality Modality Radiographic Diann ging 06/27/2024 10:0 6 AM EDT Narrative 06/27/2024 10:09 AM EDT The [address] [address] XRay Report Signed Patient: SIMONA LO MR#: [id number] : 1980 Acct:[id number] Age/Sex: 43 / F ADM Date: 06/26/24 Loc: RAD Attending Dr: Ainsley Sellers UX RESEARCHER Ordering Physician: Ainsley Sellers NP Date of Service: 06/26/24 Procedure(s): XR ribs RT min 3V w CXR1V Accession Number(s): [id number] cc: Ainsley Sellers NP [address] [address] Patient Name: SIMONA LO MRN: [id number] date: 1980 Sex: F Assigned Patient Location: [facility] Current Patient Location: Accession/Order Number: [id number] Exam Date: 06/26/2024 17:05 Report Date: 06/27/2024 10:06 At the request of: AINSLEY SELLERS Procedure: XR ribs RT min 3V w CXR1V EXAMINATION: XR ribs RT min 3V w CXR1V HISTORY: Rt Rib pain ; upper right rib pain; no known injury COMPARISON: XR chest 10/03/2010 FINDINGS: LUNGS: No significant pulmonary parenchymal abnormalities. PLEURA: No pneumothorax, effusion, or pleural thickening. MEDIASTINUM: No visible mass or adenopathy. CARDIAC: No cardiomegaly or cardiac silhouette abnormality. RIBS: Normal. No significant arthropathy or acute abnormality. OTHER: Negative. XR/XR ribs RT min 3V w CXR1V IMPRESSION: 1. No appreciable rib fracture or suspicious abnormality. 2. No acute cardiopulmonary process. Electronically authenticated by: OCHOA BOB Date: 06/27/2024 10:06 Dictated By: Ochoa Bob M.D. Signed By: 06/27/24 1009 DD/ 1006 TD/TT: Director Technical: Procedure Note Radiology, Radiologist, MD - 06/27/[address] [address] XRay Report Signed Patient: SIMONA LO EMR#: [id number] : 1980Acct:[id number] Age/Sex: 43 / FADM Date: 06/26/24 Loc: RAD Attending Dr: Ainsley Sellers NP Ordering Physician: Ainsley Sellers NP Date of Service: 06/26/24 Procedure(s): XR ribs RT min 3V w CXR1V Accession Number(s): [id number] cc: Ainsley Sellers NP [address] [address] Patient Name: SIMONA LO MRN: [id number] date: 1980 Sex: F Assigned Patient Location: [facility] Current Patient Location: Accession/Order Number: [id number] Exam Date: 06/26/2024 17:05 Report Date: 06/27/2024 10:06 At the request of: AINSLEY SELLERS Procedure: XR ribs RT min 3V w CXR1V EXAMINATION: XR ribs RT min 3V w CXR1V HISTORY: Rt Rib pain ; upper right rib pain; no known injury COMPARISON: XR chest 10/03/2010 FINDINGS: LUNGS: No significant pulmonary parenchymal abnormalities. PLEURA: No pneumothorax, effusion, or pleural thickening. MEDIASTINUM: No visible mass or adenopathy. CARDIAC: No cardiomegaly or cardiac silhouette abnormality. RIBS: Normal. No significant arthropathy or acute abnormality. OTHER: Negative. XR/XR ribs RT min 3V w CXR1V IMPRESSION: 1. No appreciable rib fracture or suspicious abnormality. 2. No acute cardiopulmonary process. Electronically authenticated by: OCHOA BOB Date: 06/27/2024 10:06 Dictated By: Ochoa Bob M.D. Signed By:06/27/24 1009 DD/ 1006 TD/TT: Director Technical: us Ainsley Sellers NP IMG XR PROCEDURES Final Result documented in this encounter Visit Diagnoses Not on filedocumented in this encounter Care Teams Editing Computer Publisher Relationship Specialty Start Date End Date Quentin Dawn MD [address] [place] [address] PCP - General Family Medicine 11/17/23 Ainsley Sellers NP [address] [place] [address] Nurse Practitioner Family Medicine 11/17/23 documented as of this encounter
--- OUTSIDE RECORDS SUMMARY | 2025-05-01 08:55 | XMS_ITS | Encounter Summary ---
Author Organization [facility] Address [address] [place] [address] Care Team Providers Care Hotel Attendant Name Role Phone Quentin Dawn MD Primary Care Provider [phone] Ainsley Sellers SPRING SETTER Unavailable [phone] Encounter Details Date Type Department Care Team ([facility] Contact Info) Description 02/11/2025 Results Follow-Up [facility] [address] [place] [address] Social History Tobacco Use Types Packs/Day Years [...] file 11/15/2023 How often do you attend holiness or hindu serv ices? Patient declined 11/15/2023 Do you belong to any clubs o r organizations such as holiness groups, unions, fraternal or athletic groups, or [...] place to sleep or slept in a chcf (including now)? Patient refused 11/15/2023 Comments Unknown [...] Office Visit [facility] [place] [address] [place] [address] Ainsley Sellers NP [address] [place] [address] 06/12/2025 9:00 AM EDT Office Visit [facility] [address] [place] [address] Ainsley Sellers NP [address] [place] [address] documented as of this encounter Visit Diagnoses Not on filedocumented in this encounter Additional Health Concerns Assessment Noted Time PHQ-9 Depression Total Score: 19 025 9:33 AM EST documented as of this encounter Care Teams Hotel Attendant Relationship Specialty Start Date End Date Quentin Dawn MD [address] [place] [address] PCP - General Family Medicine 11/17/23 Ainsley Sellers NP [address] [address] Nurse Practitioner Family Medicine 11/17/23 documented as of this encounter
--- OUTSIDE RECORDS SUMMARY | 2025-05-01 08:55 | XMS_ITS | Encounter Summary ---
Author Organization [facility] Address [address] [place] [address] Care Team Providers Care Planning Coordinator Name Role Phone Quentin Dawn MD Primary Care Provider [phone] Ainsley Sellers PAUNCH TRIMMER Unavailable [phone] Encounter Details Date Type Department Care Team ([facility] Contact Info) Description 01/14/2025 Abstract [facility] [address] [place] [address] Ainsley Sellers NP [address] [place] [address] Social History Tobacco Use Types Packs/Day Years [...] file 11/15/2023 How often do you attend judaism or nondenominational serv ices? Patient declined 11/15/2023 Do you belong to any clubs o r organizations such as judaism groups, unions, fraternal or athletic groups, or [...] Visit [facility] [place] [address] [place] [address] Ainsley Sellers NP [address] [place] [address] 06/12/2025 9:00 AM EDT Office Visit [facility] [address] [place] [address] Ainsley Sellers NP [address] [place] [address] documented as of this encounter Visit Diagnoses Not on filedocumented in this encounter Additional Health Concerns Assessment Noted Time PHQ-9 Depression Total Score: 19 025 9:33 AM EST documented as of this encounter Care Teams Planning Coordinator Relationship Specialty Start Date End Date Quentin Dawn MD [address] [place] [address] PCP - General Family Medicine 11/17/23 Ainsley Sellers NP [address] [place] [address] Nurse Practitioner Family Medicine 11/17/23 documented as of this encounter
--- OUTSIDE RECORDS SUMMARY | 2025-05-01 08:55 | XMS_ITS | Encounter Summary ---
Author Organization [facility] Address [address] [facility] [place] [address] Care Team Providers Care Seafood Processor Name Role Phone Quentin Dawn MD Primary Care Provider [phone] Ainsley Sellers VENTURE CAPITALIST Unavailable [phone] Reason for Visit * Reason Comments Med Refill Encounter Details Date Type Department Care Team ([facility] Contact Info) Description 03/07/2025 Refill [facility] [address] [place] [address] Ainsley Sellers, VENTURE CAPITALIST [address] [place] [address] Anxiety; Current moderate episode of major depressive disorder without prior episode (HCC) Social History Tobacco Use Types Packs/Day Years [...] often do you attend chur ch or quaker services? Never 03/11/2025 Do you belong to any clubs o r organizations such as orthodoxy groups, unions, fraternal or athletic groups, or [...] Recorded Patient Health Questionnaire-2 Score 3 11/15/2024 [facility] [place] of Occupat ional Health - Occupational Stress [...] place to sleep or slept in a correction (including now)? Patient refused 11/15/2023 Housing Stability Vital Sign Answer Neto e Recorded In the last 12 months, was t here a time when you were not able to pay the mortgage or rent on time? No 03/11/2025 Number of Times Moved in the Last Year Not on fi le 03/11/2025 At any time in the past [address] [facility], were you homeless or living in a correction (including now)? No 03/11/2025 Comments Unknown Sex and Gender Information Value Date Recorded Sex Assigned at Not on file Legal Sex Female 7:24 PM EDT Gender Identity Not on file Sexual Orientation Not on file documented as of this encounter Miscellaneous Notes * Telephone Encounter - Ainsley Sellers NP - 03/07/2025 8:10 PM EDT Needs a fu appt please [place] documented in this encounter Plan of Treatment Upcoming Encounters Date Type Department Care Team (Late st Contact Info) Description 05/28/2025 2:40 PM EDT Office Visit [facility] [address] [place] [address] Ainsley Sellers NP [address] [place] [address] 06/12/2025 9:00 AM EDT Office Visit [facility] [address] [place] [address] Ainsley Sellers NP [address] [place] [address] documented as of this encounter Visit Diagnoses Diagnosis Anxiety Anxiety state, unspecified Current moderate episode of major depressive disorder without prior episode (HCC) documented in this encounter Additional Health Concerns Assessment Noted Time PHQ-9 Depression Total Score: 19 025 9:33 AM EST documented as of this encounter Care Teams Seafood Processor Relationship Specialty Start Date End Date Quentin Dawn MD [address] [place] [address] PCP - General Family Medicine 11/17/23 Ainsley Sellers NP [address] [place] [address] Nurse Practitioner Family Medicine 11/17/23 documented as of this encounter
--- OUTSIDE RECORDS SUMMARY | 2025-05-01 08:55 | XMS_ITS | Encounter Summary ---
Author Organization [facility] Address [address] [place] [address] Care Team Providers Care Lead Software Development Engineer Name Role Phone Quentin Dawn MD Primary Care Provider [phone] Ainsley Sellers TREE INSPECTOR Unavailable [phone] Encounter Details Date Type Department Care Team (Late Contact Info) Description 11/01/2024 Orders Only [facility] [address] [place] [address] Luis Armando Farfan MD [address] [place] [address] Social History Tobacco Use Types Packs/Day Years [...] file 11/15/2023 How often do you attend anglican or hinduism serv ices? Patient declined 11/15/2023 Do you belong to any clubs o r organizations such as anglican groups, unions, fraternal or athletic groups, or [...] a jail (including now)? Patient refused 11/15/2023 Comments Unknown Sex and Gender Information Value Date Recorded Sex Assigned at Not on file Legal Sex Female 7:24 PM EDT Gender Identity Not on file Sexual Orientation Not on file documented as of this encounter Plan of Treatment Upcoming Encounters Date Type Department Care Team (Late st Contact Info) Description 05/28/2025 2:40 PM EDT Office Visit [facility] [address] [place] [address] Ainsley Sellers NP [address] [place] [address] 06/12/2025 9:00 AM EDT Office Visit [facility] [address] [place] [address] Ainsley Sellers NP [address] [place] [address] documented as of this encounter Procedures Procedure Name Priority Date/Time Associated Diagnosis Comments CT ABDOMEN PELVIS W AND WO IV CONTRAST Routine 11/01/2024 1:46 PM EST documented in this encounter Results * CT abdomen pelvis w and wo IV contrast (11/01/2024 1:46 PM EST) Anatomical Region Laterality Modality Body, Pelvis, Abdomen Computed T omography Luis Armando Farfan MD IMG CT PROCEDURES Final Result documented in this encounter Visit Diagnoses Not on filedocumented in this encounter Care Teams Lead Software Development Engineer Relationship Specialty Start Date End Date Quentin Dawn MD [address] [place] [address] PCP - General Family Medicine 11/17/23 Ainsley Sellers NP [address] [place] [address] Nurse Practitioner Family Medicine 11/17/23 documented as of this encounter
--- OUTSIDE RECORDS SUMMARY | 2025-05-01 08:55 | XMS_ITS | Encounter Summary ---
Author Organization [facility] Address [address] [place] [address] Care Team Providers Care Sap Bw Developer Name Role Phone Quentin Dawn MD Primary Care Provider [phone] Ainsley Sellers WAXER TENDER Unavailable [phone] Encounter Details Date Type Department Care Team (Late st Contact Info) Description 03/22/2024 Clinisync Result Encounter [facility] External Department Unsolicited Provider, Generic External Data Social History Tobacco Use Types Packs/Day Years [...] file 11/15/2023 How often do you attend hoahaoism or mormonism serv ices? Patient declined 11/15/2023 Do you belong to any clubs o r organizations such as hoahaoism groups, unions, fraternal or athletic groups, or [...] place to sleep or slept in a alf (including now)? Patient refused 11/15/2023 Comments Unknown [...] Office Visit [facility] [place] [address] [place] [address] Ainsley Sellers NP [address] [place] [address] 06/12/2025 9:00 AM EDT Office Visit [facility] [place] [facility] [address] [place] [address] Ainsley Sellers NP [address] [place] [address] documented as of this encounter Procedures Procedure Name Priority Date/Time Associated Diagnosis Comments XR LUMBAR SPINE 6V W BENDING 03/22/2024 7:40 AM EDT documented in this encounter Results * XR LUMBAR SPINE 6V W BENDING (03/22/2024 7:40 AM EDT) Anatomical Region Laterality Modality Other 03/22/2024 7:40 AM EDT Narrative 03/22/2024 7:42 AM EDT The [address] [address] XRay Report Signed Patient: SIMONA LO MR#: [id number] : 1980 Acct:[id number] Age/Sex: 43 / F ADM Date: 03/21/24 Loc: RAD Attending Dr: Meena Duvall NP Ordering Physician: Meena Duvall NP Date of Service: 03/21/24 Procedure(s): XR lumbar spine 6V w bending Accession Number(s): [id number] cc: Shaikh Ewa Millan; Meena Duvall NP The [place] [address] Patient Name: SIMONA LO MRN: [id number] date: 1980 Sex: F Assigned Patient Location: RAD Current Patient Location: Accession/Order Number: [id number] Exam Date: 03/21/2024 13:58 Report Date: 03/22/2024 07:40 At the request of: MEENA DUVALL Procedure: XR lumbar spine 6V w bending EXAMINATION: XR lumbar spine 6V w bending HISTORY: Lumbar radiculopathy/Stenosis COMPARISON: 01/27/2024 FINDINGS: BONES: Neutral projection demonstrates normal alignment with no acute fracture or spondylolisthesis. Mild to moderate spondylosis and facet osteoarthropathy DISC SPACES: Multilevel disc space narrowing most significant at L5-S1 with endplate sclerosis PARASPINOUS: Negative. No paraspinous abnormality is seen. OTHER: No transient spondylolisthesis with flexion or extension XR/XR lumbar spine 6V w bending IMPRESSION: Qolb-li-sofymbuw degenerative changes No dynamic instability Electronically authenticated by: TESS BANGURA Date: 03/22/2024 07:40 Dictated By: Tess Bangura M.D. Signed By: 03/22/24 0742 DD/ 0740 TD/TT: Gear Room Keeper: Procedure Note Radiology, Radiologist, MD - 03/22/2024 [place] [address] XRay Report Signed Patient: SIMONA LO EMR#: [id number] : 1980Acct:[id number] Age/Sex: 43 / FADM Date: 03/21/24 Loc: RAD Attending Dr: Meena Duvall NP Ordering Physician: Meena Duvall NP Date of Service: 03/21/24 Procedure(s): XR lumbar spine 6V w bending Accession Number(s): [id number] cc: Shaikh Ewa Millan; Meena Duvall NP [place] [id number] Patient Name: SIMONA LO MRN: [facility]:[id number] date: 1980 Sex: F Assigned Patient Location: [facility] Current Patient Location: Accession/Order Number: [id number] Exam Date: 03/21/2024 13:58 Report Date: 03/22/2024 07:40 At the request of: MEENA DUVALL Procedure: XR lumbar spine 6V w bending EXAMINATION: XR lumbar spine 6V w bending HISTORY: Lumbar radiculopathy/Stenosis COMPARISON: 01/27/2024 FINDINGS: BONES: Neutral projection demonstrates normal alignment with no acutefracture or spondylolisthesis. Mild to moderate spondylosis and facetosteoarthropathy DISC SPACES: Multilevel disc space narrowing most significant at L5-S1with endplate sclerosis PARASPINOUS: Negative. No paraspinous abnormality is seen. OTHER: No transient spondylolisthesis with flexion or extension XR/XR lumbar spine 6V w bending IMPRESSION: Ukxb-ij-qsmmcivf degenerative changes No dynamic instability Electronically authenticated by: TESS BANGURA Date: 03/22/2024 07:40 Dictated By: Tess Bangura M.D. Signed By:03/22/24 0742 DD/ 0740 TD/TT: Gear Room Keeper: us Generic External Data Provider [facility] Final Result documented in this encounter Visit Diagnoses Not on filedocumented in this encounter Care Teams Sap Bw Developer Relationship Specialty Start Date End Date Quentin Dawn MD [address] [place] [address] PCP - General Family Medicine 11/17/23 Ainsley Sellers NP [address] [place] [address] Nurse Practitioner Family Medicine 11/17/23 documented as of this encounter
--- OUTSIDE RECORDS SUMMARY | 2025-05-01 08:55 | XMS_ITS | Encounter Summary ---
Author Organization [facility] Address [address] [place] [address] Care Team Providers Care Shellfish Processing Laborer Name Role Phone Quentin Dawn MD Primary Care Provider [phone] Ainsley Sellers PIECE WORK INSPECTOR Unavailable [phone] Encounter Details Date Type Department Care Team ([facility] Contact Info) Description 04/23/2025 Bamboo flowsheet [facility] [address] [place] [address] Ainsley Sellers, PIECE WORK INSPECTOR [address] [place] [address] Social History Tobacco Use Types Packs/Day Years [...] often do you attend chur ch or presybeterian services? Never 03/11/2025 Do you belong to any clubs o r organizations such as religion groups, unions, fraternal or athletic groups, or [...] Recorded Patient Health Questionnaire-2 Score 3 11/15/2024 [facility] of Occupat ional Health - Occupational Stress [...] a half-way (including now)? Patient refused 11/15/2023 Housing Stability Vital Sign Answer Neto e Recorded In the last 12 months, was t here a time when you were not able to pay the mortgage or rent on time? No 03/11/2025 Number of Times Moved in the Last Year Not on fi le 03/11/2025 At any time in the past 12 m [facility], were you homeless or living in a half-way (including now)? No 03/11/2025 Comments Unknown Sex and Gender Information Value Date Recorded Sex Assigned at Not on file Legal Sex Female 7:24 PM EDT Gender Identity Not on file Sexual Orientation Not on file documented as of this encounter Plan of Treatment Upcoming Encounters Date Type Department Care Team (Late st Contact Info) Description 05/28/2025 2:40 PM EDT Office Visit [facility] [address] [place] [address] Ainsley Sellers NP [address] [place] [address] 06/12/2025 9:00 AM EDT Office Visit [facility] [address] [place] [address] Ainsley Sellers, ALESSIO [address] [place] [address] documented as of this encounter Visit Diagnoses Not on filedocumented in this encounter Additional Health Concerns Assessment Noted Time PHQ-9 Depression Total Score: 19 025 9:33 AM EST documented as of this encounter Care Teams Shellfish Processing Laborer Relationship Specialty Start Date End Date Quentin Danw MD [address] [place] [address] PCP - General Family Medicine 11/17/23 Ainsley Sellers NP [address] [place] [address] Nurse Practitioner Family Medicine 11/17/23 documented as of this encounter
--- NOTE | 2025-05-01 08:56 | XR_ITS ---
The [address] [address] Patient Name: ROSELIA LO MRN: [id number] date: 1980 Sex: F Assigned Patient Location: [facility] Current Patient Location: [facility] Accession/Order Number: [id number] Exam Date: 05/01/2025 10:51 Report Date: 05/01/2025 10:54 At the request of: LISA KNIGHT NP Procedure: XR abdomen min 2V ABDOMEN SERIES - 2 views COMPARISON: 02/12/2025 CLINICAL DATA: Microscopic hematuria Supine and upright views of the abdomen and pelvis were obtained. There is a small amount of air within small and large bowel loops on the right, without disproportionate distention. There are short air fluid levels. No free air is seen. A small amount of stool is visualized at the left colon. The right kidney is partially obscured. No obvious radiopaque renal or ureteral stones are noted. The left pelvic phlebolith was also visualized at the time of the prior. No soft tissue masses are seen. Subtle levoscoliotic curvature and minor degenerative changes seen are noted at the spine. There is mild sclerosis at the SI joints. There are clips from prior cholecystectomy. XR/XR abdomen min 2V IMPRESSION: NONSPECIFIC BOWEL GAS PATTERN. NO RADIOPAQUE STONES. Impression dictated by: Alisha Sánchez M.D. 05/01/2025 10:54 AM Dictation Location: [place] [address] Electronically authenticated by: [id number] Y Date: 05/01/2025 10:54
== END 2025-05-01 08:52 | disposition home or self-care (01) ==
LOC: RAD 08:53
PROVIDERS: PCP Nurse Practitioner; Visit Provider Nurse Practitioner
DX: R31.29 Other microscopic hematuria (principal)
CPT/HCPCS: 74019

== ENCOUNTER 2025-05-07 13:33 | Outpatient (OUT) | payer OTHER, SELFPAY ==
--- OUTSIDE RECORDS SUMMARY | 2025-04-23 15:05 | XMS_ITS ---
Author Name Auto Generated Organization OHIP Support Name Relationship Address Phone DECURSEThea MARLYS Next of Kin Unknown [phone] JANKIELIEZER STEELE Next of Kin Unknown [phone] ELIEZER LO Next of Kin [address] [place] [address] [place] [address] Unavailable BRIANURSEThea MARLYS Next of Kin Unknown [phone] ELIEZER LO Next of Kin Unknown [phone] ELIEZER LO Next of Kin [address] [place] [address], [place] [address] + Eliezer Lo Next of Kin [address] [place] [address], [place] [address] + Eliezer Lo Next of Kin [address] [place] [address] [place] [address] + Eliezer Lo Next of Kin [address] [place] [address], [place] [address] + Eliezer Lo Next of Kin [address] [place] [address], [place] [address] + ELIEZER LO Next of Kin [address] [place] [address], [place] [address] + [place] [address] [phone] ELIEZER LO Next of Kin [address] [place] [address], [place] [address] + [place] [address] [phone] ELIEZER LO Next of Kin [address] [place] [address], [place] [address] + DECALBAY, MARLYS Next of Kin Unknown [phone] YSELIEZER STEELE Next of Kin Unknown [phone] DECURSEY, MARLYS Next of Kin Unknown [phone] YSELIEZER STEELE Next of Kin Unknown [phone] DECURSEY, MARLYS Next of Kin Unknown [phone] YSAGROLANDO, ELIEZER Next of Kin Unknown [phone] DECURSEY, MARLYS Next of Kin Unknown [phone] YSAGROLANDO, ELIEZER Next of Kin Unknown [phone] DECURSEY, MARLYS Next of Kin Unknown [phone] ELIEZER LO Next of Kin Unknown [phone] Eliezer Lo Next of Kin [address] [facility] [address] [place] [address] + Eliezer Lo Next of Kin [address] [address] + Care Team Providers Care Homicide Investigator Name Role Phone DONYZ, AINSLEY Attending Unavailable AICHHOLZ, AINSLEY Attending Unavailable AICHHOLZ, AINSLEY Attending Unavailable AICHHOLZ, AINSLEY Attending Unavailable AICHHOLZ, AINSLEY Attending Unavailable AICHHOLZ, AINSLEY Attending Unavailable AICHHOLZ, AINSLEY Attending Unavailable Aichholz, Ainsley J Primary Care Unavailable Say Cutler Admitting Unavailable Say Cutler Attending Unavailable Asaad, Imad Attending Unavailable Aichholz, Ainsley J Primary Care Unavailable Asaad, Imad Admitting Unavailable Aichholz, Ainsley J Primary Care Unavailable Ivonne Joaquin Admitting Unavailable Ivonne Joaquin Attending Unavailable AICHA CASEY Attending Unavailable AICHHOLZ, AINSLEY J Referring Unavailable AICHHOLZ, AINSLEY J Primary Care Unavailable AICHA CASEY Referring Unavailable AICHHOLZ, AINSLEY J Primary Care Unavailable NEISHA LANIER L Attending Unavailable AICHHOLZ, AINSLEY J Referring Unavailable AICHHOLZ, AINSLEY J Primary Care Unavailable YOLANDE, NEISHA L Referring Unavailable AICHHOLZ, AINSLEY J Primary Care Unavailable AINSLEY KNIGHT Primary Care Unavailable PROBLEMS DATE TYPE CONDITION / CODE ATTENDING STATUS [facility] 03/15/2025 Unknown Contusion of lef t wrist, initial encounter / S60.212A(ICD-10) NA [facility] 03/15/2025 Unknown Wrist Injury / FREETEXT(AOF) [facility] 03/15/2025 Unknown wrist injury / UNK(Unknown) [facility] 01/11/2025 Unknown Pain in left wri st / M25.532(ICD-10) Ivonne Joaquin [facility] 12/19/2024 Unknown Diverticulitis o f intestine, part unspecified, without perforation or abscess without bleeding / K57.92(ICD-10) Sabrina, Adamad [facility] 12/10/2024 Unknown Other specified abnormal uterine and vaginal bleeding / N93.8(ICD-10) NEISHA LANIER [facility] 12/10/2024 Unknown Consult / FREETEXT(AOF) NEISHA LANIER [facility] 03/24/2022 Unknown Nicotine depende nce, unspecified, uncomplicated / F17.200(ICD-10) AICHA CASEY [facility] 11/23/2024 Unknown Encounter for gynecological examination (general) (routine) without abnormal findings / Z01.419(ICD-10) [facility] 11/23/2024 Unknown Encounter for sc reening for depression / Z13.31(ICD-10) [facility] 11/23/2024 Unknown Encounter for sc reening for malignant neoplasm of cervix / Z12.4(ICD-10) [facility] 11/23/2024 Unknown Other specified postprocedural states / Z98.890(ICD-10) [facility] 11/23/2024 Unknown Encounter for sc reening for infections with a predominantly sexual mode of transmission / Z11.3(ICD-10) AICHA CASEY [facility] 11/23/2024 Unknown Gynecologic Exam / FREETEXT(AOF) AICHA CASEY [facility] 05/28/2024 Unknown Intervertebral d isc disorders with radiculopathy, lumbar region / M51.16(ICD-10) Say Cutler [facility] PROCEDURES No Procedure Records Found RESULTS XR WRIST LT MIN 3 VWS Observed: 03/15/20 25 3:45 PM Status: COMPLETED Source: [facility] XR WRIST LT MIN 3 VWS HISTORY: Pain, swelling, injury COMPARISON: None FINDINGS: Multiple views of the left wrist were obtained. Osseous structures are intact. No acute malalignment. No significant soft tissue abnormality. IMPRESSION: * No acute abnormality. Finalized by Jitendra Childs MD on 03/15/2025 3:58 PM COMPLETE BLOOD COUNT Collected: 02/07/2025 2:55 PM Status: COMPLETED Source: [facility] TYPE CODE TESTS RESULT OUT OF RANGE REFERENCE UNITS LAB WBC(LOINC) WBC COUNT 10.0 4.0-11.0 X10E9/L LAB RBC(LOINC) RBC COUNT 4.47 3.80-5.20 X10E12/L LAB HGB(LOINC) HEMOGLOBIN 15.2 11.7-15.5 g/dL LAB HCT(LOINC) HEMATOCRIT 44.3 35-47 % LAB MCV(LOINC) MCV 99 80-100 fL LAB MCH(LOINC) MCH 34.0 27-34 pg LAB MCHC(LOINC) MCHC 34.4 32-36 g/dL LAB RDW(LOINC) RDW 13.9 11.5-15.0 % LAB PLTC(LOINC) PLATELET COUNT 285 150-450 X10E9 /L LAB MPV(LOINC) MPV 9.3 7-12 fL Performed By: #### CBC, 2041 5-6, 3016-3, 3024-7, 2842-3, 89878-7, 77577-4 #### [facility] ([id number]) [address] [facility], [address] [place] [address] SERUM B HCG,3RD I.S. Collected: 2:55 PM Status: COMPLETED Source: [facility] TYPE CODE TESTS RESULT OUT OF RANGE REFERENCE UNITS LAB HCG(LOINC) SERUM B HCG,3RD I.S. <5 mIU/mL Result Comment: NEW REFERENC E RANGE WEEKS (SINCE LMP) MIU/mL 3 WEEKS 5 - 50 4 WEEKS 5 - 426 5 WEEKS 18 - 7,340 6 WEEKS 1,080 - 56,500 7-8 WEEKS 7,650 - 229,000 9-12 WEEKS 25,700 - 288,000 13-16 WEEKS 13,300 - 254,000 17-24 WEEKS 4,060 - 165,400 25-40 WEEKS 3,640 - 117,000 MALES AND NON- FEMALES - <5 MIU/mL This test has been FDA approved for use in only. Elevated levels are not necessarily diagnostic for trophoblastic or nontrophoblastic neoplasms. Performed By: #### CBC, 1 5-6, 3016-3, 3024-7, 2842-3, 61130-5, 54745-3 #### [facility] ([id number]) [address] [place] [address] TSH Collected: 02/07/2025 2:55 PM S tatus: COMPLETED Source: [facility] TYPE CODE TESTS RESULT OUT OF RANGE REFERENCE UNITS LAB TSH(LOINC) TSH 1.89 0.49-4.67 uIU/mL Performed By: #### CBC, 1 5-6, 3016-3, 3024-7, 2842-3, 12319-4, 07220-4 #### [facility] ([id number]) [address] [place] [address], [address] [address] FREE T4 Collected: 02/07/2025 2:55 PM S tatus: COMPLETED Source: [facility] TYPE CODE TESTS RESULT OUT OF RANGE REFERENCE UNITS LAB FT4(LOINC) FREE T4 1.05 0.61-1.60 ng/dL Performed By: #### OMAYRA, 2040 5-6, 3016-3, 3024-7, 2842-3, 46498-4, 41953-3 #### [facility] ([id number]) [address] [place] [address], [address] [place] [address] PROLACTIN Collected: 02/07/2025 2:55 PM S tatus: COMPLETED Source: [facility] TYPE CODE TESTS RESULT OUT OF RANGE REFERENCE UNITS LAB PROL(LOINC) PROLACTIN 10.5 3.3-26.7 ng/mL Performed By: #### OMAYRA, 2041 02-6, 3016-3, 3024-7, 2842-3, 32360-1, 26506-7 #### [facility] ([id number]) [address] [place] [address], [address] [address] FOLLICLE STIM HORMONE Collected: 02/07/2025 2:5 5 PM Status: COMPLETED Source: [facility] TYPE CODE TESTS RESULT OUT OF RANGE REFERENCE UNITS LAB FSH(LOINC) FOLLICLE STIM HORMONE 3.3 mIU/mL Result Comment: NORMAL FEMALE Luteal 1.8-5.1 mIU/mL Follicular 3.8-8.8 mIU/mL Mid Cycle 4.5-22.5 mIU/mL [place] 16.7-113.6 mIU/mL Performed By: #### OMAYRA, 2040 5-6, 3016-3, 3024-7, 2842-3, 21105-3, 10453-0 #### [facility] ([id number]) [address] [place] [address], [address] [place] [place] [address] LUTEINIZING HORMONE Collected: 02/07/2025 2:55 PM Status: COMPLETED Source: [facility] TYPE CODE TESTS RESULT OUT OF RANGE REFERENCE UNITS LAB LH(LOINC) LUTEINIZING HORMONE 5.7 mIU/mL Result Comment: NORMAL FEMALE Follicular 2.1-10.9 mIU/mL Mid Cycle 19.2-103 mIU/mL Luteal 1.2-12.9 mIU/mL Post [place]ai 10.9-58.6 mIU/mL Performed By: #### CBC, 2041 5-6, 3016-3, 3024-7, 2842-3, 44789-0, 50819-5 #### [facility] ([id number]) [address], [address] [place] [address] XR HAND LT MIN 3V* Observed: 01/11/2025 2:02 PM Status: COMPLETED Source: [address] [address] XRay Report Signed Patient: Simona Lo MR#: [id number] : 1980 Acct:[id number] Age/Sex: 44 / F ADM Date: 01/11/25 Loc: XDUCLY Room: Type: [facility] Attending Dr: Ivonne Joaquin APRN Copies to: Ivonne Joaquin APRN Ordering Provider: Ivonne Joaquin APRN Date of Service: 01/11/25 XR/XR wrist LT min 3V*: LEFT WRIST PAIN ([id number]) XR/XR hand LT min 3V*: LEFT HAND [...] BONY PROCESS. Impression dictated by: Alexander Phipps Jr., D.O.01/11/2025 2:03 PM Dictation Location: RADIO-PC-23 Transcribed By: PWS 01/11/251402 Dictated By: Alexander Phipps Jr, DO 01/11/251401 Signed By: <Electronically signed by Alexander Phipps Jr, DO in OV> 01/11/251402 L Observed: 12/19/2024 12:31 PM Status: F Source: [facility] ----- ------- Specimen: [id number] Received: 12/19/24 Status: CHRISTINA Fernandez Num: [id number] Spec Type: Surgical Subm Dr: Ángela Bennett MD Tissues: A Colon Biopsy (DESCENDING COLON POLYP) Procedures: BRAYDON/Zeferino Aquino/Mike L4 ----- ------- Age/ Patient Sex Location Account Attending Physician ----- ------- Simona Lo 44/F [id number] Ángela Bennett MD ----- ------- SPEC NUM: [id number] RECD: 12/19/24 STATUS: CHRISTINA FERNANDEZ NUM: [id number] DEEPA: 12/19/241 [facility] DR: Ángela Bennett MD ENTERED: 12/19/24 [facility] DR: SPEC TYPE: Surgical DEPT: S ENTERED BY: [id number] RECV BY: [id number] ORDERED: HE/2, Gross/Micro L4 ORDERED: HE/2, Gross/Micro L4 Pathological Diagnosis Colon, descending, polypectomy: - Tubular adenoma. Clinical Information Diverticulitis, colon polyp. Gross Description Received in formalin labeled with the patients name, date of , and descending polyp is a castillo-smith, focally erythematous, friable, 0.3 cm in greatest dimension polypoid fragment. The specimen is entirely submitted in a single cassette. (1, ns, [id number] 486 A) Microscopic Description Microscopic examination is performed. CPT Codes 22935 ----- ------- ----- ------- Specimen: [id number] Received: 12/19/24 Status: CHRISTINA Jim Num: [id number] Spec Type: Surgical Subm Dr: Ángela Bennett MD Tissues: A Colon Biopsy (DESCENDING COLON POLYP) Procedures: HE/2, Gross/Micro L4 ----- ------- Patient: Simona Lo [id number] (Continued) ----- ------- Signed (signature on file) Aayush Aly MD 12/20/24 1132 HCG,URINE Collected: 5 11:02 AM Status: F Source: [facility] TYPE CODE TESTS RESULT OUT OF RANGE REFERENCE UNITS LAB UHCGQ HCG Qualitative,U rine Negative Result Comment: PERFORMED BY : [place] [address] PATHOLOGIST MAP MAKER KARRIE SANTOS M.D. Performed By: #### UHCG #### [address] CHLAMYDIA/GC PCR, [place] Observed: 5 4:15 AM Status: COMPLETED Source: [facility] CHLAMYDIA PCR, [place] Negative (qualifier value) Chlamydia trachomatis not detected by nucleic acid amplification. This does not exclude the possibility of infection because results are dependent on adequate specimen collection. GONORRHOEAE PCR, [place] Negative (qualifier value) Neisseria gonorrhoeae not detected by nucleic acid amplification. This does not exclude the possibility of infection because results are dependent on adequate specimen collection. Performed By: #### CGTPCR ## ## [facility] ([id number]) [address] [place] [address] [address] [place] [address] HIGH RISK HPV W/EDA Observed: 5 4:15 AM Status: COMPLETED Source: [facility] HPV SPECIMEN TYPE ThinPrep HPV 16 Negative (qualifier value) HPV 18 Negative (qualifier value) OTHER HIGH RISK HPV Positive (qualifier value) For the DNA of any or combination of the following HPV types: 31,33,35,45, 52,56,58,59,66 and 68. Performed By: #### 84702-1 # ### [facility] ([id number]) [address] [facility], FIRST FLOOR [place], [place] [address] [place] [address] LAB ([id number]) [address] [place] [address] CYTOLOGY Collected: 5 4:15 AM Status: COMPLETED Source: [facility] TYPE CODE TESTS RESULT OUT OF RANGE REFERENCE UNITS LAB F89-6819&rpt Cytology Normal Result Comment: [facility] [address] [place] [address] Gynecologic Cytology Consultation Patient Name:SIMONA LO:1980 (Age: 44)Gender:FTaken:11/23/2024Reported:12/06/2024Physician(s):Aicha Casey, C.N.P. ([phone])Copy To: Rec. #:[id number]: #[id number] Final Cytologic Interpretation ThinPrep Pap Test (Cervical): Satisfactory for evaluation. A transformation zone component is not identified via imaging-assisted review, using The [employer] Thin Prep Imaging System, within 22 microscopic noe of view. NEGATIVE FOR INTRAEPITHELIAL LESION OR MALIGNANCY. [facility]/12/06/2024 Interpretation performed at [facility], [address] [place] [address], License number: [id number]. Electronically Signed Out By LINDA White(ASCP) Date of Last Menstrual Period: 11/19/24 Other Clinical Conditions: Z01.419 Plane Tender exam wo/abn findings Z12.4 Screening for malignant neoplasm of cervix Z11.3 Encntr screen for infections w sexl mode of transmiss Source of Specimen ThinPrep Pap Test (Cervical) Thin Prep Pap (MANAGER LPN) Fee Code(s): G0145 The Pap test is a screening test with an inherent, but low, probability of error. The Pap test is primarily effective for the diagnosis and prevention of squamous cell carcinoma. Regular screening is critical for prevention. ThinPrep liquid-based slides, which meet the Anesthesiology Tech criteria for automated screening, have been screened by the ThinPrep Imaging System (as of 07/17/07) along with an additional manual rescreening by a industrial chemist and, if indicated, by a pathologist. XR LUMBAR SPINE 1V Observed: 05/28/2024 1:39 PM Status: COMPLETED Source: [facility] [address] XRay Report Signed Patient: Simona Lo MR#: [id number] : 1980 Acct:[id number] Age/Sex: 43 / F ADM Date: 05/28/24 Loc: [place] Room: Type: [facility] Attending Dr: Say Cutler MD Copies to: Say Cutler MD Ordering Provider: Say Cutler MD Date of Service: 05/28/24 XR/XR lumbar [...] the L5-S1 intervertebral disc. Impression dictated by: Rodrigue Hoffman M.D.05/28/2024 1:40 PM Dictation Location: [place] [address] Transcribed By: [facility] 05/28/24 1340 Dictated By: Rodrigue Hoffman II, MD 05/28/24 1339 Signed By: <Electronically signed by Rodrigue Hoffman II, MD in OV> 05/28/24 1340 HCG,URINE Collected: 05/28/2024 8:27 AM Status: F Source: [facility] TYPE CODE TESTS RESULT OUT OF RANGE REFERENCE UNITS LAB UHCGQ HCG Qualitative,U rine Negative Result Comment: PERFORMED BY : [place] [address] PATHOLOGIST MAP MAKER ARACELI HOLLEY M.D. Performed By: #### UHCG #### [address] ALLERGIES DATE TYPE / CODE NAME / CODE REACTION SEVERITY SOURCE 01/11/2025 Drug Allergy/416 089108(SNOM ED CT) codeine/H541275804(RXN ORM) seizures Unknown [facility] 01/11/2025 Drug Allergy/416 831726(SNOM ED CT) diphenhydramine/E55132 4787(RXNORM) Hives Unknown [facility] 05/06/2017 DRUG INGREDI~NON -CBORD/4195 57082(SNOME D CT) CODEINE Hives [facility] 05/06/2017 DRUG INGREDI~NON -CBORD/4195 36275(SNOME D CT) DIPHENHYDRAMINE HCL Hallucinations Low [facility] ENCOUNTERS ADMIT/DISCHARGE ACCOUNT NUMBER ADMITTING ENCOUNTER CLASS LOCATION SOURCE 04/23/2025/04/23/20 [id number] Ambulatory Building:[facility] 03/15/2025/03/15/20 [id number] Emergency Building:PF _EDRoom: 11Bed: 11 [facility] 03/12/2025/03/12/20 [id number] Ambulatory Building:[facility] 02/07/2025/02/08/20 [id number] Ambulatory Building:PF _LAB [facility] 01/11/2025/01/12/20 [id number] [facility] 12/19/2024/12/19/19 [id number] Ángela Bennett [facility] 12/10/2024/12/10/19 [id number] Ambulatory Buildin 18 [facility] 11/23/2024/11/23/19 25 [id number] Ambulatory Buildin 18 [facility] 11/23/2024/11/23/19 25 [id number] Ambulatory Building:[facility]M _LAB [facility] 11/15/2024/11/15/19 [id number] Ambulatory Building:[facility] 11/01/2024/11/01/19 25 [id number] Ambulatory Building:[facility] 07/25/2024/07/25/20 24 [id number] Ambulatory Building:[facility] 06/26/2024/06/26/20 24 [id number] Ambulatory Building:[facility] 06/11/2024/06/11/20 24 [id number] Ambulatory Building:[facility] 05/28/2024/05/28/20 24 [id number] Say Cutler [facility] PAYERS ENCOUNTER GUARANTOR PAYER SUBSCRIBER SOURCE 04/23/2025 SIMONA WALLISEDOB: [place], [place] [address]Bpd: (HP) Primary Insurance:[employer] [facility] Number: [id number] Date:2022-10-31 ELIEZER WALLISEDOB: [id number] [place] [address] [facility] 03/15/2025 [id number] EDOB: [place], [place] [address]Ixy: (HP) Primary Insurance:WORKER'S COMPENSATION-VENDOR -HOSP ONLYPolicy Number: [id number] Date: SIMONA BROWNUIRREDOB: 1998-01-00VRI304 [place], [place] [address]Hlp: (WP) [facility] 03/15/2025 Secondary Insurance:[employer] PE BENEFITS/WHIRLPOOLP olicy Number: [id number] Date:2022-10-31 ELIEZER BROWNUIRREDOB: [id number] [place], [place] [address]Wlt: (HP) (WP) [facility] 03/12/2025 SIMONA DONOVANRREDOB: [place], [place] [address]Jet: (HP) Primary Insurance:HEALTHCOO PEPolicy Number: [id number] Date:2022-10-31 ELIEZER BROWNUIRREDOB: [id number] [place] [address] [facility] 02/07/2025 SIMONA BROWNUIRREDOB: [place] [address]Kgt: (HP) Primary Insurance:[employer] PE BENEFITS/WHIRLPOOLP olicy Number: [id number] Date:2022-10-31 ELIEZER BROWNUIRREDOB: [id number] [place], [place] [address]Bhc: (HP) (WP) [facility] 01/11/[address] [place] [address]Hbr: (HP) Primary Insurance:Healthsco pePolicy Number: [id number] Date:6621-44-26ZaNIC Kolb [address]MW: Eliezer YsaguirreDOB: [id number] [place] [address]Aba: () [facility] 01/11/2025 Secondary Insurance:Self PayPolicy Number: Effective Date:2025-01-11 [facility] 12/19/2024 Simona Portilloaguirre[address] [place], [place] [address]Dzg: (HP) Primary Insurance:Healthsco pePolicy Number: [id number] Date:2110-05-68La [place]se [address] [address]PD: Eliezer BrownuirreDOB: [id number] [place] [address]Hyx: () [facility] 12/19/2024 Secondary Insurance:Self PayPolicy Number: Effective Date:2024-12-13 [facility] 12/10/2024 SIMONA GIRON YSAGUIRREDOB: [place] [address]Psl: (HP) Primary Insurance:[employer] PE BENEFITS/WHIRLPOOLP olicy Number: [id number] Date:2022-10-31 ELIEZER YSAGUIRREDOB: [id number] [place], [place] [address]Juz: (HP) () [facility] 11/23/2024 SIMONA GIRON YSAGUIRREDOB: [place] [address]Psd: (HP) Primary Insurance:[employer] PE BENEFITS/WHIRLPOOLP olicy Number: [id number] Date:2022-10-31 ELIEZER PORTILLOANILAUIRREDOB: [id number] [place], [place] [address]Ksp: (HP) (WP) [facility] 11/23/2024 SIMONA GIRON YSAGUIRREDOB: [place] [address]Qvv: (HP) Primary Insurance:HEALTH[employer]OO PE BENEFITS/IRLPOOLP olicy Number: [id number] Date:2022-10-31 ELIEZER YSAGUIRREDOB: [id number] [place], [place] [address]Xnt: (HP) (WP) [facility] 11/15/2024 SIMONA Martinez YSAGUIRREDOB: [place], [place] [address]Wzc: (HP) Primary Insurance:HEALTHCOO PEPolicy Number: [id number] Date:2022-10-31 ELIEZER YSAGUIRREDOB: [id number] [place] [address] [facility] 11/01/2024 SIMONA Juan JANKIAGUIRREDOB: [place], [place] [address]Byr: (HP) Primary Insurance:HEALTHCOO PEPolicy Number: [id number] Date:2022-10-31 ELIEZER YSAGUIRREDOB: [id number] [place] [address] [facility] 07/25/2024 SIMONA E YSAGUIRREDOB: [place], [place] [address]Ihh: (HP) Primary Insurance:[employer] PEPolicy Number: [id number] Date:2022-10-31 ELIEZER YSANILAUIRREDOB: [id number] [place] [address] [facility] 06/26/2024 SIMONA BROWNUIDEBORAHEDOB: [place], [place] [address]Epp: (HP) Primary Insurance:HEALTH[employer]O PEPolicy Number: [id number] Date:2022-10-31 ELIEZER VENUSRREDOB: [id number] [place] [address] [facility] 06/11/2024 SIMONA Martinez BIMALEDOB: [place], [place] [address]Asf: (HP) Primary Insurance:HEALTH[employer]O PEPolicy Number: [id number] Date:2022-10-31 ELIEZER BIMALEDOB: [id number] [place] [address] [facility] 05/28/2024 Simona Brownuirre[address] [place], [place] [address]Gyx: (HP) Primary Insurance:Healthsco pePolicy Number: [id number] Date:4546-27-15Ll Alyse [id number] [place] [address]CX: Eliezer BimaleDOB: 3896-05-76NMV456 [place], [place] [address]Owv: (HP) [facility] 05/28/2024 Secondary Insurance:Self PayPolicy Number: Effective Date:2024-04-30 NOT GIVENUNK [facility]
[2025-05-07 14:02] LABS: Glucose Urine UA NEGATIVE (NEGATIVE)
== END 2025-05-07 13:34 | disposition home or self-care (01) ==
PROVIDERS: PCP Nurse Practitioner; Visit Provider Nurse Practitioner
DX: R31.29 Other microscopic hematuria (principal)
CPT/HCPCS: 81003; 87086

== ENCOUNTER 2025-08-21 12:35 | Outpatient (OUT) | payer OTHER, SELFPAY ==
--- OUTSIDE RECORDS SUMMARY | 2025-08-09 20:28 | XMS_ITS | Continuity of Care Document ---
Author Organization [facility] Address [address] [place] [address] Phone Care Team Providers Care [employer] Name Role Phone Ainsley Sellers Primary Care Provider [phone] Ainsley Sellers Attending Provider Care Teams Visit Care Team Team Status: Inactive Member Role Status Dates ALEXIA Quevedo Primary Care Provider Active Start: August 08, 2025 End: August 08, 2025Bg Quevedotending ProviderActiveStart: August 08, 2025 End: August 08, 2025 Patient Care Team Team Status: Inactive Member Role Status Dates ALEXIA Quevedo Attending Provider Active Start: August 08, 2025 End: August 08, 2025 Chief Complaint and Reason for Visit Chief Complaint Admit Date meds August 08, 2025 1: 29pm Reason for Visit Admit Date CRISTAL (generalized anxiety disorder) Octob er 2024 1:29pm Lumbar back pain with radicu lopathy affecting left lower extremity August 08, 2025 1:29pm Major depression August 08, 2025 1: 29pm Obesity due to excess calories August 082024 1:29pm Tobacco dependence August 08, 2025 1: 29pm Allergies, Adverse Reactions, Alerts Allergen Type Severity Reaction Last Updated Verified Status codeine Allergy Unknown Seizures July 03, 2025 7:04am Yes Active diphenhydramine Allergy Unknown Hives July 03, 2025 7:04 am Yes Active Social History Smoking Status Status Start Date End Date Date of Observa tion Smokes tobacco daily (finding) January 11, 2025 1:09pm Observation Status Observation Response Date of Response Legal Sex Female (finding) Sex Assigned At BirthFemaleDecemb 1979 Family History Relationship Condition Age at Onset Recorded Date/T nusrat father Diabetes mellitus Unknown Heart diseaseUnknown Problems Active Problems Medical Problem Onset Date Status Left hand pain Unknown Active Current moderate episode of major depressive disorder without prior episode Unknown Active Elevated glucose Unknown Active Tobacco dependence Unknown Active Major depression Unknown Active Insomnia Unknown Active CRISTLA (generalized anxiety disorder) Unknown Active Rib pain on right side Unknown Active Encounter for screening mammogram for malignant neoplasm of breast Unknown Active Displacement of lumbar intervertebral disc with radiculopathy Unknown Active Sciatica Unknown Active Hot flashes Unknown Active Diverticulitis Unknown Active Mixed hyperlipidemia Unknown Active Microscopic hematuria Unknown Active OA (osteoarthritis) of hip Unknown Activ e Displacement of lumbar intervertebral disc Unkno wn Active Metabolic syndrome Unknown Active Peripheral neuropathy Unknown Active Lumbar back pain with radiculopathy affecting le ft lower extremity Unknown Active First degree burn of left wrist Unknown Active Stage 3a chronic kidney disease (CKD) Unknown Active Tubular adenoma of colon Unknown Active Bunion, left Unknown Active Cyst of right ovary Unknown Active Contusion of left wrist Unknown Active Obesity due to excess calories Unknown A ctive Medications Medication Status Dose Units Route Directions Qty Days St art Date Stop Date End Date Instructions Adherence Sod Sulf-Pot Chloride-Mag Sulf (Sutab) 1.479-0.188- 0.225 gram tablet Discontinued 12 TAB PO Twice daily 23 11November 06, 2024 1:00am December 19, 2024 12:12pmtake first dose at 3pm the day before colonoscopy; take the second dose at 9pm evening before colonoscopy.Trazodone 50 mg tablet Wppgix95ITRVOxlmw at pygytvz89Kinoved 2024 12:54pmUnknownFluoxetine 40 mg hsnvqbrNpyerr51LYUXYjpnh84Smhnxts 2024 12:54pmUnknownCephalexin 500 mg ojiejhrRsrrqnocmvya994QCTYGzmkg times xbvyt76Cnut 2023 12:00amAugust 2023 1:11pmCyclobenzaprine 10 mg pefcbnMatddufpqynx79CQMTLoktl times daily as needed for back kkisim68Nnoz 2023 12:00ugu2023 1:11pmOxycodone 5 mg tabletDiscontinued5 - 16STXEJ3I as needed for Atsj485Bkph ugust 2023 1:12pmPrednisone 10 mg tablets,dose tjfzHxjykawdcekg5rehn pkPOper package eqdktizste99Kmht 2023 12:00amAugu2023 1:12pmtake 4 tabs for 3 days then take 3 tabs for 3 days then take 2 tabs for 3 days then take 1 tab for 3 daysBaclofen 10 mg rxzzfeQizzgnjzmgqd46EZCBYynch daily as needed for muscle spasmJune 2023 12:00amJuly 2023 11:39am Acetaminophen (Tylenol Extra Strength) 500 mg vrineaHzmmmqnktgtl028OAZHIuwvq 6 hours as needed for painJune 2023 12:00amSeptember 2024 7:10amFolic Acid 1 mg dtnaarFdfhoxzzmrnw1WYPBEavjgRzyg 2023 12:00amSeptember 2024 7:11amOlanzapine 2.5 mg tabletActive2.5MGPODaily at bedtimeFebruary 2024 1:00amUnknownTrazodone 50 mg rmzsxjHksvtkjmhxtl40UXQOPykkv at bedtimeFebruary 2024 1:00amOctober 2024 12:54pmAlprazolam 0.25 mg tabletActive0.25MGPO Daily as needed for anxietyMarch 2023 1:00amUnknownFluoxetine 20 mg capsule Xvjfvksomche46YDEDKzobxKtvjn 2023 1:00amOctober 2024 9:06amTrazodone 50 mg tyjuarJajwyipzpzna05GNTQFjdwd at bedtime as needed for sleepMarch 2023 1:00amAugust 2023 1:12pmGabapentin 300 mg lbonziaVamfkiyuwxss697QVUG Twice dailyMarch 2023 1:00amApril 2023 9:28amPrednisone 20 mg tablet Neqwrhybtdsq60ETHBEbetl qtelx243Orbvt 2023 1:00amJune 2023 2:04pm Start this prescription on January 01.Cyclobenzaprine 10 mg ojhgchRoqhflyxqchj06VZ POThree times daily as needed for muscle yagxl63Qjtrf 2023 1:00amJune 2023 2:05pmGabapentin 300 mg tgsnhhjWmxdsqmjzyis036NITBWqrwe times dailyApril 2023 9:28amFebruary 2024 12:04pmFluoxetine 40 mg capsuleDiscontinued 40MGPODailyOctober 2024 12:00amOctober 2024 12:54pmTizanidine 4 mg gvobkqAmblca7ZKNLUgalw at bedtime as neededOctb[facility] 2024 12:00amUnknown Immunizations Immunization Event Date Not Given Reason Dose Number [employer] Lot Number Vaccine Information Statement (VIS) Detail Administration Location COVID-19 mRNA-1273 (Moderna) March 15, 2021 COVID-19 mRNA-1273 (Moderna)April 12OVID-19 mRNA Bivalent Booster (Moderna)September 03, 2022 Vital Signs Vital Reading Result Reference Range Collection Date/Time Height 63 [in_i] August 08, 2025 1:37hrSguxtd33.58 kgOctb[facility] 2024 1:53pmBody Temperature 97.3 [degF]97.6-99.0Octb[facility] 2024 1:53pmHeart Aika875 /mhe27-354Abjspyt 2024 1:53pmRespiratory rate18 /rcr04-27Dtndrkm 2024 1:53pmOxygen saturation by Pulse wbbhuyee07 %95-100[facility] 2024 1:53pmBP Sepaaqgq010 mm[Hg]100-140Octb[facility] 2024 1:53pmBP Ppiwtxrrh10 mm[Hg]60-100[facility] 2024 1:53pmBMI (Body Mass Index)34.9 kg/f0Pluxwtc 2024 1:53pm Advance Directives Advance Directive Response Recorded Date/ Time Advance Directives No December 31 3:00pm Insurance Providers Guarantor Simona Moore Ysaguirr e Address [address] [place] [id number] Info.Home Phone: Payer Policy Id Subscriber's Name Subscriber Id Torreyiv e Date Expiration Date [employer] [id number] Eliezer Portillokiraoscar [id number] Encounters Encounter Location(s) Arrival/Admit Date Discharge/Depart Date Provider(s) Departed Physician/Prov ider Office Visit -[facility] [place] August 08, 2025 1:29pm August 08, 2025 2:20pm ALEXIA Quevedo Departed Referred -Lab [facility] [place] August 08, 2025 2:15pm August 08, 2025 2:16pm ALEXIA Quevedo Recent Diagnosis Onset Date Admit Date CRISTAL (generalized anxiety disorder) Unknown August 08, 2025 1:29pm Lumbar back pain with radicu lopathy affecting left lower extremity Unknown August 08, 2025 1:29pm Major depression Unknown August 08 1:29pm Obesity due to excess calories Unknown O ctober 2024 1:29pm Tobacco dependence Unknown August 08, 2025 1:29pm Assessments Diagnosis Onset Date Resolution Status Admit Date CRISTAL (generalized anxiety disorder) acuteOctober 2024 1:29pmLumbar back pain with radiculopathy affecting left lower extremityacuteOctober 2024 1:29pmMajor depressionacuteOctober 2024 1:29pmObesity due to excess caloriesacuteOctober 2024 1:29pmTobacco dependenceacuteOctober 2024 1:29pm Plan of Treatment Author [facility]ellers [facility] 2:27pmcurrent meds: xanax prn, fluoxetine, olanzapine, trazodone at HS would like to wean down doses olanzapine: QOD for 7 dose, then Q 3rd day for 5 doses then stop fu in 10 weeks, sooner if sxs worsen current meds: xanax prn, fluoxetine, olanzapine, trazodone at HS would like to wean down doses olanzapine: QOD for 7 dose, then Q 3rd day for 5 doses then stop fu in 10 weeks, sooner if sxs worsencurrent meds: prn xanax, fluoxetine, olanzapine, trazodone at HS Discussed with patient their BMI (actual vs recommended). We have discussed lifestyle modifications: attempts to perform phsyical activity as chronic conditions allow, monitor dietary intake: increasing protein/fruits/veggies and lowering carb intake (unless contraindicated). Limit sodas, juices, sugary drinks, as well as alcohol consumption. Pt meets qualifications of OAC 4731-09-03 for weight loss. BMI >30 or >27 with comorbid conditions. Notify office with any symptoms of chest pain, dyspnea, heart palpitations, or any anxiety symptoms. F/U in 4 weeks to document weight loss. Increase physical activity as tolerated, and lower caloric intake to 1600 calories daily if no contraindications. start weight:201 today weight:197 OARRS reviewed 4 months prescribed no more script of this, d/t lack of continued weight loss The patient has been advised of the risks of continued smoking: stroke, [place], all forms of cancer, lung disease, and . Options for quitting: cold turkey, hypnosis, acupuncture, nicotine replacement meds (gum, lozenges, and patches), as well as oral meds: buproprion or varenicline . At this time pt is encouraged to evaluate their goals for wanting to quit smoking, and reach out to provider when ready to start this process has failed conservative treatment: nsaid, mr, steroids, HEP hx of HNP, sxs similar will order MRI lumbar spine Future Tests Future scheduled test information is unavailable Pending Tests Test Name Ordered Date Scheduled Date Urine Drug Screen (T) August 08, 2025 2:15pm MR lumbar spine wo conOctober 2024 2:27pm Future Visits Future appointment information is unavailable Referrals to Other Providers Referral information is unavailable Future Procedures Procedure Name Ordered Date Scheduled Date Toxassure, Urine August 08, 2025 6:34am Octobe r 2024 6:33am Future Medications Future medication information is unavailable Patient Instructions Instruction Admit Date Low back pain in adults August 08 1:29pm
--- NOTE | 2025-08-21 12:39 | MR_ITS ---
The [address] [address] Patient Name: ROSELIA LO MRN: [facility]:[id number] date: 1980 Sex: F Assigned Patient Location: MRI Current Patient Location: MRI Accession/Order Number: [id number] Exam Date: 08/21/2025 12:45 Report Date: 08/21/2025 17:02 At the request of: LISA KNIGHT NP Procedure: MR lumbar spine wo con MRI lumbar spine performed without contrast INDICATION: Left lower extremity radiculopathy COMPARISON: MRI of the lumbar spine 01/27/2024 FINDINGS: Mild levocurvature. Lumbar vertebral heights, alignment and bone marrow signal unremarkable. Incidental hemangioma involving the T12 vertebral body. Conus medullaris terminates normally at the mid L2 vertebral body level. Bilateral renal cysts. Areas of scarring involving both kidneys suspected.. Mild intervertebral space narrowing L4-S1 most pronounced at L5-S1. T12-L2: No significant disease disc protrusion central canal or neural foraminal narrowing. Mild facet arthropathy. L2-3: Mild to moderate facet arthropathy. No significant disease disc protrusion. Canal neural foramina patent. L3-4: Moderate facet arthropathy. This causes mild to moderate right mild left neural foraminal narrowing. There is minimal crowding of the right surgical zone. Otherwise no significant disc disease or disc protrusion. L4-5: No significant disease or disc protrusion. Moderate facet arthropathy. This causes mild canal narrowing. Foramina patent. L5-S1: Circumferential disc bulge with endplate osteophytosis and spurring extending to both foramina zones.. Moderate facet arthropathy. These findings result in moderate central canal and subarticular recess narrowing. There is abrx-vz-[id number] right and moderate left neural from narrowing. MR/MR lumbar spine wo con IMPRESSION: Multilevel prominent posterior degenerative changes throughout the lumbar spine greatest lumbosacral junction. Degenerative changes greatest L5-S1. The previously noted disc extrusion at L5-S1 appears resolved interval. There is however persistent bilateral subarticular narrowing, moderate, and bilateral foraminal encroachment this level. No high-grade canal or neural foraminal narrowing identified. Impression dictated by: Craig Briceno M.D. 08/21/2025 5:02 PM Dictation Location: [place] [address] Electronically authenticated by: [id number] Y Date: 08/21/2025 17:02
--- OUTSIDE RECORDS SUMMARY | 2025-08-21 12:39 | XMS_ITS | CCD ---
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 Name Role Phone UNKNOWN, PHYSICIAN Referring Unavailable UNKNOWN, PHYSICIAN Primary Care Unavailable EBRAHEIM, REZA Attending Unavailable EBRAHEIM, REZA Admitting Unavailable AICHHOLZ, GROCERY CLERK MARKING AINSLEY Admitting Unavailable SVETA, DR TESS Eaton Consulting Unavailable AICHHOLZ, GROCERY CLERK MARKING AINSLEY Attending Unavailable AICHHOLZ, GROCERY CLERK MARKING AINSLEY Primary Care Unavailable AICHHOLZ, GROCERY CLERK MARKING AINSLEY Consulting Unavailable AICHHOLZ, GROCERY CLERK MARKING AINSLEY Primary Care Unavailable AICHHOLZ, GROCERY CLERK MARKING AINSLEY Admitting Unavailable AICHHOLZ, GROCERY CLERK MARKING AINSLEY Attending Unavailable AICHHOLZ, GROCERY CLERK MARKING AINSLEY Primary Care Unavailable HELIO, DR RANDOLPH Mehta Admitting Unavailable HELIO, DR RANDOLPH Mehta Attending Unavailable HELIO, DR RANDOLPH Mehta Consulting Unavailable HELIO, DR RANDOLPH Mehta Admitting Unavailable YOLANDA, DR NEVAREZ Primary Care Unavailable HELIO, DR RANDOLPH Mehta Attending Unavailable HELIO, DR RANDOLPH Mehta Consulting Unavailable AICHHOLZ, GROCERY CLERK MARKING AINSLEY Primary Care Unavailable AICHHOLZ, GROCERY CLERK MARKING AINSLEY Admitting Unavailable AICHHOLZ, GROCERY CLERK MARKING AINSLEY Attending Unavailable AICHHOLZ, GROCERY CLERK MARKING AINSLEY Consulting Unavailable Aicha Shankar Unavailable Ainsley Sellers Primary Care Provider MD Say Cutler Attending Provider Quentin Dawn MD Primary Care Provider Aicagustin LAND CHECKER, Ainsley Unavailable VERITO AINSLEY J Referring Unavailable AICHHOLZ, AINSLEY J Primary Care Unavailable AICHA WRIGHT Attending Unavailable AICHHOLLiu, AINSLEY J Referring Unavailable AICHHOLZ, AINSLEY J Primary Care Unavailable AICHHOLZ, AINSLEY J Referring Unavailable AICHHOLZ, AINSLEY J Primary Care Unavailable NEISHA LANIER Attending Unavailable AICHHOLZ, AINSLEY J Referring Unavailable AICHHOLZ, AINSLEY J Primary Care Unavailable Aichholz, Ainsley J Primary Care Provider Sabrina BRADFORD, Ángela Attending Provider Imelda Sellersa Cb Primary Care Provider Sabrina BRADFORD, Ángela Attending Provider Ivonne Joaquin APRN Attending Provider [phone] AICHA WRIGHT Referring Unavailable AICHHOLZ, AINSLEY J Primary Care Unavailable NEISHA LANIER Referring Unavailable AICHHOLZ, AINSLEY J Primary Care Unavailable AICHHOLZ, AINSLEY J Primary Care Unavailable Aichmeño, Ainsley J Attending Provider [phone] AICHHOLZ, AINSLEY Attending Unavailable AICHHOLZ, AINSLEY Attending Unavailable AICHHOLZ, AINSLEY Attending Unavailable AICHHOLZ, AINSLEY Attending Unavailable AICHHOLZ, AINSLEY Attending Unavailable AICHHOLZ, AINSLEY Attending Unavailable AICHHOLZ, AINSLEY Attending Unavailable AICHHOLZ, AINSLEY Attending Unavailable Aichholz LAND CHECKER-CAinsley Primary Care Provider [phone] Verito LAND CHECKER-CAinsley Attending Provider Verito Ainsley J Admitting Unavailable Aichholz, Ainsley J Attending Unavailable Aichholz, Ainsley J Admitting Unavailable Aichholz, Ainsley J Attending Unavailable Aichholz, Ainsley J Primary Care Unavailable Ivonne Joaquin Admitting Unavailable Ivonne Joaquin Attending Unavailable Aichholz, Ainsley J Primary Care Unavailable Asaad, Imad Admitting Unavailable Asaad, Imad Attending Unavailable Allergies Allergy ClassificationReported Allergen(s)Allergy TypeDate of OnsetReaction(s) FacilitydiphenhydrAMINE (1 source)diphenhydrAMINE; Translations: [BENADRYL]Drug Bfyjoag69-22-5427Gdr [facility] Repository (12 sources)Codeine; Translations: [CODEINE]Drug Tcdyeee61-79-8196KxwtfbtqJgh [facility] Repository (1 source)diphenhydrAMINEDrug Dfemwtw39-08-2274JjyTr[facility] Rep[facility] (20 sources)CodeineDrug Saxwlpw28-04-3041EoighJefferson Davis Community Hospital [place] Other (11 sources)diphenhydrAMINEDrug Jdncwhu32-72-7099DytpiUwasaajqlKeenan Private Hospital (20 sources)diphenhydrAMINEDrug Lamolzj53-32-0375H[facility]wD[facility] (2 sources)diphenhydrAMINE; Translations: [DIPHENHYDRAMINE HCL]Drug Allergy 01-34-8935[facility] (1 source)CodeineDrug Bkuhjli32-44-3182TvjdkzjibMercy Health Repository (1 source)diphenhydrAMINEDrug Pnsyhzd56-86-4503KpjdffaazMercy Health Repository Medications Current Medications MedicationDrug Class(es)DatesSig (Normalized)Sig (Original)[id number] 200 actuat albuterol 0.09 mg/actuat metered dose inhaler (20 sources)beta2-Adrenergic Agonisttake 2 puff(s) by inhalation every six hours for wheezingProAir HFA 108 (90 Base) MCG/ACT inhaler Inhale 2 puffs every 6 (six) hours if needed for shortnessof breath or wheezing ActiveALPRAZolam 0.25 mg oral tablet (20 sources)BenzodiazepineStart: 01-01-2024 End: 35-72-7423ykji 1 tablet by mouth once daily as needed for anxietyStart: 74-51-0125Fqlpooeygx Active MG PO January 01, 2024 1:00amALPRAZolam Active amoxicillin 875 mg / clavulanate 125 mg oral tablet (5 sources)Penicillin-class Antibacterial End: 39-03-1759nudg 1 tablet by mouth in the morningamoxicillin-clavulanate (Augmentin) 875-125 MG tablet Take 875 mg by mouth in the morning and 875 mg before bedtime. 11/15/2024 Discontinued (Therapy completed)ciprofloxacin 500 mg oral tablet (4 sources)Quinolone AntimicrobialStart: 11-01-2024 End: 67-51-9295hebi 1 tablet by mouth in the morningciprofloxacin (Cipro) 500 MG tablet Indications: Diverticulitis Take 1 tablet (500 mg) by mouth in the morning and 1 tablet (500 mg) before bedtime. Do all this for 10 days. 20 tablet 11/01/2024 11/15/2024 Discontinued (Therapy completed)dexamethasone 4 mg oral tablet (1 source)CorticosteroidStart: 71-23-5273yacn 1 tablet by mouth every twenty- four hoursDexamethasone 4 MG 1 tablet Orally Once a day for 5 days Dec, Activedextromethorphan hydrobromide 1.5 mg/ml / pyrilamine maleate 1.5 mg/ml oral solution (1 source)Uncompetitive J-gemucn-P-aspartate Receptor Antagonist, Sigma-1 AgonistStart: 96-77-3504Ppkhqt DM 7.5-7.5 MG/5ML 10 ml Orally every 6-8 hours as needed for 8 days Dec, Activedicyclomine hydrochloride 20 mg oral tablet (7 sources)AnticholinergicStart: 12-11-2024 End: 15-20-6954ofsz 1 tablet by mouth every eight hoursdicyclomine (Bentyl) 20 MG tablet Indications: Generalized abdominal pain Take 1 tablet (20 mg) by mouth every 8 (eight) hours if needed (abdominal pain or cramps) for up to 5 days 15 tablet 12/11/2024 12/16/2024 ActiveStart: 10-22-2024 End: 17-55-1427zmgq 1 tablet by mouth three times daily as neededdicyclomine (Bentyl) 20 MG tablet Indications: Diverticulitis Take 1 tablet (20 mg) by mouth 3 (three) times a day as needed (abd cramping) for up to 10 days 30 tablet 11/01/2024 11/15/2024 ActiveFLUoxetine 40 mg oral capsule (20 sources)Serotonin Reuptake InhibitorStart: 08-05-2025 End: 38-86-7619pndj 1 capsule by mouth once dailyStart: 03-07-2025 End: 77-61-8774qemd 1 capsule by mouth once dailyFLUoxetine (PROzac) 40 MG capsule Indications: Anxiety , Current moderate episode of major depressive disorder without prior episode (HCC) Take 1 capsule (40 mg) by mouth Daily 90 capsule 03/12/2025 ActiveStart: 30-24-3203oqwr 1 capsule by mouth once daily FLUoxetine (PROzac) 40 MG capsule Indications: Anxiety , Current moderate episode of major depressive disorder without prior episode (HCC) (CMS/HCC) Take 1 capsule (40 mg) by mouth Daily 30 capsule ActiveStart: 09-28-2024 take 1 capsule by mouth once dailyFLUoxetine (PROzac) 40 MG capsule Take 40 mg by mouth Daily 09/28/2024 ActiveStart: 06-11-2024 End: 51-85-5465qvec 1 capsule by mouth once dailyFLUoxetine (PROzac) 40 MG capsule Indications: Anxiety Take 1 capsule (40 mg) by mouth Daily 30 capsule 2 06/11/2024 07/25/2024 Discontinued (Therapy completed)Start: 01-01-2024 End: 67-79-1981knrw 2 capsules by mouth once dailyFluoxetine 20 mg capsule Discontinued 40 MG PO Daily January 01, 2024 1:00am August 05, 2025 9:06am Start: 10-54-3316wlbz 40 mg by mouth once dailyFluoxetine Active 40 MG PO Daily January 01, 2024 1:00amfluticasone propionate 0.05 mg/actuat metered dose nasal spray (1 source)CorticosteroidStart: 71-05-0737roer 1 spray(s) nasal route once daily Fluticasone Propionate 50 MCG/ACT 1 spray in each nostril Nasally Once a day for 21 days Dec, ActivemetroNIDAZOLE 500 mg oral tablet (4 sources)Nitroimidazole AntimicrobialStart: 11-01-2024 End: 62-24-2865hxhm 1 tablet by mouth every eight hoursmetroNIDAZOLE (Flagyl) 500 MG tablet Indications: Diverticulitis Take 1 tablet (500 mg) by mouth every 8 (eight) hours for 10 days No alcohol use while taking 30 tablet 11/01/2024 11/15/2024 Discontinued (Therapy completed)naproxen 500 mg oral tablet (13 sources)Nonsteroidal Anti-inflammatory DrugStart: 05-28-2025 End: 30-43-3492rbxx 1 tablet by mouth in the morningnaproxen (Naprosyn) 500 MG tablet Indications: Sciatica of left side Take 1 tablet (500 mg) by mouth in the morning and 1 tablet (500 mg) in the evening. Take with meals. Do all this for 15 days. 30 tablet 05/28/2025 06/12/2025 Discontinued (Therapy completed)Start: 07-17-2024 End: 22-45-2925prsu 1 tablet by mouth oncenaproxen (Naprosyn) 500 MG tablet Indications: Rib pain on right side Take 1 tablet (500 mg) by mouth every 12 (twelve) hours if needed for mild pain or moderate pain for up to 15 days 30 tablet 07/17/2024 08/01/2024 ActiveStart: 06-26-2024 End: 08-82-8419hagx 1 tablet by mouth in the morningnaproxen (Naprosyn) 500 MG tablet Indications: Rib pain on right side Take 1 tablet (500 mg) by mouth in the morning and 1 tablet (500 mg) in the evening. Take with meals. Do all this for 15 days. Take with food. 30 tablet 06/26/2024 07/17/2024 Discontinued OLANZapine 2.5 mg oral tablet (20 sources)Atypical AntipsychoticStart: 11-15-2024 End: 51-80-9184nizl 1 tablet by mouth once daily at bedtimeondansetron 4 mg oral tablet (3 sources)Serotonin-3 Receptor AntagonistStart: 40-42-3859oxuz 1 tablet by mouth every eight hours as neededZofran ODT 4 MG 1 tablet on the tongue and allow to dissolve Orally every 8 hrs as needed for 4 days Dec, Active phentermine hydrochloride 37.5 mg oral tablet (20 sources)Sympathomimetic Amine AnorecticStart: 04-23-2025 End: 43-55-0329vzet 1 tablet by mouth before mealtimephentermine (Adipex-P) 37.5 MG tablet Indications: Obesity (BMI 30-39.9) Take 1 tablet (37.5 mg) bymouth in the morning. Take before meals. 30 tablet 05/28/2025 06/27/2025 ActivepredniSONE 20 mg oral tablet (17 sources)Start: 82-26-4794abrvukYQBC (Deltasone) 20 MG tablet Indications: Sciatica of left side Three times daily for 3 days, then twice a day for 3 days, once a day for 3 days take with food 18 tablet 06/12/2025 ActiveStart: 95-19-5694msemncUGVD (Deltasone) 20 MG tablet Indications: Sciatica of left side Three times daily for 3 days, then twice a day for 3 days, once a day for 3 days take with food 18 tablet 06/12/2025 ActiveStart: 05-28-2024 End: 57-69-0836Ffbsxjdaje 10 mg tablets,dose pack Discontinued 1 dose pk PO per package directions May 28, 2024 12:00am June 28, 2024 1:12pm take 4 tabs for 3 days then take 3 tabs for 3 days then take 2 tabs for 3 days then take 1 tab for 3 daysStart: 02-14-1081Xhlrakvgxz Active 1 dose pk PO per package directions May 28, 2024 12:00am take 4 tabs for 3 days then take 3 tabs for 3 days then take 2 tabs for 3 days then take 1 tab for 3 daysStart: 01-01-2024 End: 01-46-4157jpcb 1 tablet by mouth twice dailyPrednisone 20 mg tablet Discontinued 20 MG PO Twice daily 10 January 01, 2024 1:00am April 16, 2024 2:04pm Start this prescription on January 01.sertraline 50 mg oral tablet (1 source)Serotonin Reuptake InhibitorSertraline HCl 50 MG TAKE 1 AND 1/2 TABLETS BY MOUTH DAILY Oral for 90 Days ActiveSutab 8148-872-602 MG tablet (9 sources)Start: 11-11-2024 End: 14-79-2081Gwqpz 7482-574-692 MG tablet TAKE 12 TABLETS BY MOUTH TWICE DAILY FOR 1 DAY. TAKE FIRST DOSE AT 3 PM THE DAY BEFORE COLONOSCOPY AND SECOND DOSE AT 9 PM EVENING BEFORE 11/11/2024 03/12/2025 Discontinued (Therapy completed)Start: 67-82-2968Mpdsh 1097-268-870 MG tablet TAKE 12 TABLETS BY MOUTH TWICE DAILY FOR 1 DAY. TAKE FIRST DOSE AT 3 PM THE DAY BEFORE COLONOSCOPY AND SECOND DOSE AT 9 PM EVENING BEFORE 11/11/2024 ActivetiZANidine 4 mg oral tablet (9 sources)Central alpha-2 Adrenergic AgonistStart: 86-17-7206uttf 1 tablet by mouth once daily at bedtime as neededStart: 05-28-2025 End: 19-03-1131qvFPEuyrbp (Zanaflex) 4 MG tablet Indications: Sciatica of left side Take 1 tablet (4 mg) by mouth as needed at bedtime for muscle spasms for up to 15 days 15 tablet 06/12/2025 06/27/2025 Active Completed/Discontinued Medications MedicationDrug Class(es)DatesSig (Normalized)Sig (Original)acetaminophen 500 mg oral tablet (7 sources)Start: 04-16-2024 End: 55-70-4870rhol 1 tablet by mouth every six hours as needed for pain Acetaminophen (Tylenol Extra Strength) 500 mg tablet Discontinued 500 MG PO Every 6 hours as neededfor pain April 16, 2024 12:00am July 03, 2025 7:10ambaclofen 10 mg oral tablet (10 sources)gamma-Aminobutyric Acid-ergic AgonistStart: 07-17-2024 End: 07-94-5054maxx 0.5-1 tablets by mouth twice daily as neededbaclofen (Lioresal) 10 MG tablet TAKE 1/2 TO 1 TABLET BY MOUTH TWICE DAILY NEEDED 07/17/2024 07/25/2024 Discontinued (Therapy completed)Start: 04-16-2024 End: 87-76-1036unba 1 tablet by mouth twice daily as needed for muscle spasms Baclofen 10 mg tablet Discontinued 10 MG PO Twice daily as needed for muscle spasm April 16, 2024 12:00am May 28, 2024 11:39amcephalexin 500 mg oral capsule (6 sources)Cephalosporin AntibacterialStart: 05-28-2024 End: 22-30-1247skcf 1 capsule by mouth three times dailyCephalexin 500 mg capsule Discontinued 500 MG PO Three times daily May 28, 2024 12:00am June 28, 2024 1:11pmcyclobenzaprine hydrochloride 10 mg oral tablet (15 sources)Muscle RelaxantStart: 05-28-2024 End: 41-58-1899flpa 1 tablet by mouth three times daily as needed for muscle spasmsCyclobenzaprine 10 mg tablet Discontinued 10 MG PO Three times daily as needed for back spasms May 28, 2024 12:00am June 28, 2024 1:11pmStart: 01-01-2024 End: 64-00-0096cbsv 1 tablet by mouth three times daily as needed for muscle spasmsCyclobenzaprine 10 mg tablet Discontinued 10 MG PO Three times daily as needed for muscle spasm January 01, 2024 1:00am April 16, 2024 2:05pmfolic acid 1 mg oral tablet (15 sources)Start: 10-07-2023 End: 33-20-6794hbaq 1 tablet by mouth once dailyFolic Acid 1 mg tablet Discontinued 1 MG PO Daily April 16, 2024 12:00am July 03, 2025 7:11am gabapentin 300 mg oral capsule (20 sources)Anti-epileptic AgentStart: 02-24-2024 End: 47-07-8612euag 1 capsule by mouth three times dailyGabapentin 300 mg capsule Discontinued 300 MG PO Three times daily February 24, 2024 9:28am 2024 12:04pmStart: 01-01-2024 End: 79-10-4276gvka 1 capsule by mouth twice dailyGabapentin 300 mg capsule Discontinued 300 MG PO Twice daily January 01, 2024 1:00am February 24, 2024 9:28amoxyCODONE hydrochloride 5 mg oral tablet (6 sources)Opioid AgonistStart: 05-28-2024 End: 65-09-7901bxhg 5-10 mg by mouth every six hours as needed for painOxycodone 5 mg tablet Discontinued 5 - 10 MG PO Q6H as needed for Pain 40 8 May 28, 2024 June 28, 2024 1:12pmSod Sulf-Pot Chloride-Mag Sulf (3 sources)Start: 11-06-2024 End: 86-85-0750Zen Sulf-Pot Chloride-Mag Sulf (Sutab) 1.479-0.188- 0.225 gram tablet Discontinued 12 TAB PO Twice daily 23 11November 06, 2024 1:00am December 19, 2024 12:12pm take first dose at 3pm the day before colonoscopy; take the second dose at 9pm evening before colonoscopy.Sod Sulf-Pot Chloride-Mag Sulf (Sutab) 1.479-0.188- 0.225 gram tablet (2 sources)Start: 11-06-2024 End: 26-04-1936Hex Sulf-Pot Chloride-Mag Sulf (Sutab) 1.479-0.188- 0.225 gram tablet Discontinued 12 TAB PO Twice daily 23 11November 06, 2024 1:00am December 19, 2024 12:12pm take first dose at 3pm the day before colonoscopy; take the second dose at 9pm evening before colonoscopy.Start: 11-06-2024 End: 98-67-4247Bbo Sulf-Pot Chloride-Mag Sulf (Sutab) 1.479-0.188- 0.225 gram tablet Discontinued 12 TAB PO Twice daily 23 11November 06, 2024 12:00am December 19, 2024 11:12am take first dose at 3pm the day before colonoscopy; take the second dose at 9pm evening before colonoscopy.traZODone hydrochloride 50 mg oral tablet (20 sources)Serotonin Reuptake InhibitorStart: 01-01-2024 End: 69-46-6671rzdp 1 tablet by mouth once daily at bedtimeTrazodone 50 mg tablet Discontinued 50 MG PO Daily at bedtime December 05, 2024 1:00am August 05, 2025 12:54pmStart: 15-71-4125Kjaqycglp Active MG PO January 01, 2024 1:00am Problems Active Problems Problem ClassificationProblemDateDocumented DateEpisodic/ChronicAcquired foot deformities (20 sources)Bunion; Translations: [Bunion of left foot]Onset: 10-06-2023 54-30-4342QrithkbjXzbzntb disorders (20 sources)Anxiety; Translations: [Anxiety disorder, unspecified]Onset: 715808-92-2964UlfeljcKbzea (5 sources)Epidermal burn of left wrist; Translations: [Burn of first degree of left wrist, initial encounter]56-89-5741WvkbsluwEopmtry kidney disease (20 sources)Chronic kidney disease stage 3A ; Translations: [Stage 3a chronic kidney disease (CKD)]Onset: 10-06-2023 Resolved: 258747-18-4919UmfdzhfAyjrplzn mellitus without complication (20 sources)Increased glucose level; Translations: [Other abnormal glucose] Onset: 274309-14-3617NpabsxekUwbnusdxf of lipid metabolism (12 sources)Mixed hyperlipidemia; Translations: [Mixed hyperlipidemia]Onset: 263054-40-7229ZfqmaqtFangqqgodmqwdo and diverticulitis (20 sources)Diverticulitis; Translations: [Diverticulitis of intestine, part unspecified, without perforation or abscess without bleeding]Onset: 03-29-2024 27-18-5480HopwjqbPyjlujcvfxlwv symptoms and ill-defined conditions (20 sources)Acute retention of urine ; Translations: [Other retention of urine] Onset: 07-25-2024 Resolved: 112029-90-7571CweescvrHwceoobcxaeos mental health disorders (1 source)Primary insomnia; Translations: [Primary insomnia]56-68-2952Nfcxtpu Mood disorders (20 sources)Moderate major depression, single episode; Translations: [Major depressive disorder, single episode, moderate]Onset: hronic Nausea and vomiting (1 source)NauseaEpisodicOsteoarthritis (20 sources)Osteoarthritis of hip; Translations: [Osteoarthritis of hip, unspecified]Onset: 915016-64-1192QyapdoxNfliw and unspecified benign neoplasm (20 sources)Tubular adenoma of colon; Translations: [Benign neoplasm of colon, unspecified]Onset: 777890-17-0265XramyuqsPkohs connective tissue disease (1 source)Hand pain; Translations: [Pain in left hand]30-04-2736BxwxwjchYqhql connective tissue disease (3 sources)Pain of left hand; Translations: [Pain in left hand]01-11-2025 EpisodicOther female genital disorders (2 sources)Other specified abnormal uterine and vaginal bleeding; Translations: [Other specified abnormal uterine and vaginal bleeding]Onset: 23-02-3512Omjorcg Other lower respiratory disease (20 sources)Rib pain; Translations: [Pleurodynia]Onset: EpisodicOther nervous system disorders (20 sources)Polyneuropathy; Translations: [Polyneuropathy, unspecified]Onset: 858024-29-9084NwwfmhvNiwdg nervous system disorders (2 sources)Peripheral nerve disease ; Translations: [Polyneuropathy, unspecified]03-34-7592VgfncrsLkbqd nutritional; endocrine; and metabolic disorders (20 sources)Body mass index 30+ - obesity; Translations: [Obesity, unspecified] Onset: 200711-68-9090EwizpnqMkhse nutritional; endocrine; and metabolic disorders (12 sources)Metabolic syndrome X; Translations: [Metabolic syndrome]Onset: 183925-18-7603QwuohffHkdyn nutritional; endocrine; and metabolic disorders (4 sources)Obesity caused by energy imbalance; Translations: [Other obesity due to excess calories]86-49-9230GaetewqWmiwc screening for suspected conditions (not mental disorders or infectious disease) (20 sources)Patient encounter status; Translations: [Encounter for screening mammogram for malignant neoplasm of breast]Onset: 10-06-2023 Resolved: 466806-40-1392UadbekzfWjjkt skin disorders (1 source)Rash and other nonspecific skin eruption; Translations: [RASH OTH NONSPECIFIC SKIN ERUPTION]Onset: 96-06-3145NzxyyctcXbmou upper respiratory infections (8 sources)Acute pharyngitis, unspecified; Translations: [Sore throat symptom] Onset: 10-17-2021 Resolved: 09-14-4093KrfuksawDnfkphx cyst (20 sources)Cyst of right ovary; Translations: [Unspecified ovarian cyst, right side]Onset: 685878-18-6090VopmneueNyzfcmka codes; unclassified (20 sources)Flushing; Translations: [Flushing]Onset: EpisodicResidual codes; unclassified (20 sources)Insomnia; Translations: [Insomnia, unspecified]Onset: 10-06-2023 03-12-2364NxmugppeEyemuewo codes; unclassified (1 source)Other specified postprocedural states; Translations: [Other specified postprocedural states]Onset: 02-84-2288DkidvltlXhcinnquw and history of mental health and substance abuse codes (1 source)Encounter for screening for depression; Translations: [Encounter for screening for depression]Onset: 10-61-2675ZqnrvetiYwsbvchwymf; intervertebral disc disorders; other back problems (6 sources)Other intervertebral disc degeneration, lumbosacral region; Translations: [Herniation of nucleus pulposus of lumbar intervertebral disc] Onset: 03-12-6460KpkzobiKegmmnpibdj; intervertebral disc disorders; other back problems (20 sources)Lumbar disc prolapse with radiculopathy; Translations: [Intervertebral disc disorders with radiculopathy, lumbar region]Onset: 906126-01-7974KcjbmmwiArjgsqyjk-kucrfji disorders (20 sources)Nicotine dependence, cigarettes, uncomplicated; Translations: [Nicotine dependence, unspecified, uncomplicated]Onset: 376670-46-6853 ChronicSuperficial injury; contusion (6 sources)Contusion of left wrist; Translations: [Contusion of left wrist, initial encounter]Onset: 485123-14-2711TumciwjmZkihupxaiaww (1 source)LOW BACK PAIN, UNSPECIFIED; Translations: [LOW BACK PAIN, UNSPECIFIED] Onset: 06-43-2534Mlnffdsgbcvw (1 source)ConsultOnset: 04-96-6706Whlcxynumzko (1 source)Gynecologic ExamOnset: 09-46-7555Qrvmdgcujuok (2 sources)Wrist InjuryOnset: 03-15-2025 Past or Other Problems Problem ClassificationProblemDateDocumented DateEpisodic/ChronicAbdominal pain (20 sources)Unspecified abdominal pain; Translations: [Generalized abdominal pain]Onset: 14-56-0941LkvtppzsRdxkoaef reactions (20 sources)Erythema ab igne [dermatitis ab igne]; Translations: [Erythema ab igne]Onset: 03-18-2022 Resolved: 95-82-6668FbsmkukbYbpgcpa obstructive pulmonary disease and bronchiectasis (1 source)Bronchitis, not specified as acute or chronic; Translations: [BRONCHITIS NOT SPEC ACUTE/CHRON]Onset: 22-96-8540OxczwvcmLpmtbuvjzarxc and procreative management (1 source)ContraceptionOnset: 97-53-3500HhtrrqtqLgthqgmvanshh and screening for infectious disease (2 sources)Encounter for screening for infections with a predominantly sexual mode of transmission; Translations: [Encounter for screening for infections with a predominantly sexual mode of transmission]Onset: 82-98-4038FzgcicygFkgs disorders (20 sources)Mood disordersOnset: 988048-00-5787Yppbn aftercare (1 source)Other fdc (current) drug therapy; 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]Onset: 92-89-9107OyyrevidQmzsn connective tissue disease (4 sources)Pain in right leg; Translations: [PAIN IN RIGHT LEG]Onset: 11-18-2021 EpisodicOther connective tissue disease (1 source)Pain in left leg; Translations: [PAIN IN LEFT LEG]Onset: 11-20-2021 EpisodicOther connective tissue disease (20 sources)Pain in bilateral legs; Translations: [Pain in right leg]Onset: 727189-99-7115VilsqsqwNqmei connective tissue disease (20 sources)Radial styloid tenosynovitis; Translations: [Radial styloid tenosynovitis [de Quervain]]Onset: 421323-75-4430CoftxnkvIbwjv connective tissue disease (20 sources)Partial thickness rotator cuff tear; Translations: [Incomplete rotator cuff tear or rupture of unspecified shoulder, not specified as traumatic]Onset: 167475-35-4544KhffsyxsCxhrj non-traumatic joint disorders (20 sources)Pain in elbow; Translations: [Pain in right elbow]Onset: 10-06-2023 Resolved: 683524-03-7420FxtsmesaNnyxa non-traumatic joint disorders (20 sources)Hip pain; Translations: [Pain in right hip]Onset: 01-12-2024 Resolved: 311150-24-2161YfklelsiDvtiv non-traumatic joint disorders (1 source)Pain in left wrist; Translations: [Pain in left wrist]Onset: 29-83-7962FrhrqhdxJvjns nutritional; endocrine; and metabolic disorders (20 sources)Body mass index 25-29 - overweight; Translations: [Overweight]Onset: 10-06-2023 Resolved: 996930-47-3238TrniiuhqTqotv skin disorders (20 sources)Eruption; Translations: [Rash and other nonspecific skin eruption] Onset: 10-06-2023 Resolved: 757614-08-4762WsddjmniQlwxhv media and related conditions (20 sources)Acute suppurative otitis media without spontaneous rupture of ear drum; Translations: [Acute suppurative otitis media without spontaneous rupture of ear drum, bilateral]Onset: 10-06-2023 Resolved: 476476-43-5416UyctjuvmDxyqyzoz codes; unclassified (20 sources)Tobacco user; Translations: [Tobacco use]Onset: 10-06-2023 Resolved: 547562-12-4697DosxdkvrCpawdwyxsmgk (1 source)Contact with and (suspected) exposure to covid-19 Z20.822Viral infection (1 source)COVID-19Onset: 06-01-2022 Resolved: 06-01-2022 Results Test NameValueInterpretationReference RangeFacilityToxassure, Urineon 08-08-2025 Toxassure, Urine SummaryFINALNormal.[facility] Physician GroupComment on above:Result Comment: TOXASSURE COMP DRUG ANALYSIS,UR Test Result Flag Units Drug Present Phentermine PRESENT Fluoxetine PRESENT Norfluoxetine PRESENT Norfluoxetine is an expected metabolite of fluoxetine. Trazodone PRESENT 1,3 chlorophenyl piperazine PRESENT 1,3-chlorophenyl piperazine is an expected metabolite of trazodone. Olanzapine PRESENT Test Result Flag Units Ref Range Creatinine 75 mg/dL >=20 Declared Medications: Medication list was not provided. For clinical consultation, please call . Performed at: [facility] [address] [place] [address] [id number] Milk Pasteurizer: Marline Haque [facility], Phone: [phone] PERFORMED BY: [place] [address] [place] [address] PATHOLOGIST GOLF CART REPAIRER RAJANI BENTLEY M.D.Performed By: #### TOXASSURE #### [facility] ,[facility] UA (CLEAN/CATCH) MICROSCOPIC IF INDICATEon 39-04-3900OGFZHATHV URINE NegativeNEGATIVENOMS HealthcareBLOOD URINENegativeNEGATIVENOMS HealthcareClarity (U)CLEARCLEARNOMS HealthcareColor (U)LT. YELLOWYELLOWNOMS HealthcareGLUCOSE URINE UANegativeNEGATIVE mg/dLNOMS HealthcareInterpretation and review of laboratory resultsAbnormalNOMS HealthcareKetones Ql (U)NegativeNEGATIVE mg/dL NOMS HealthcareLeukocyte esterase Test strip Ql (U)NegativeNEGATIVENOMS HealthcareNITRITE URINENegativeNEGATIVENOMS HealthcarepH (U)6.0 [pH]5.0 - 9.0 NOMS HealthcarePROTEIN URINENegativeNEG/TRACE mg/dLNOMS HealthcareSPECIFIC GRAVITY URINE<=1.059Fjxtufaa1.005 - 1.025NOMS HealthcareURINE MICROSCOPIC INDICATEDNONOMS HealthcareUROBILINOGEN URINE0.2 EU/dL0.2 - 1.0 EU/dLNOMS HealthcareCLINISYNCNOMS HealthcareUrine Cultureon 91-90-8516Vhexepyj identified Cx Nom (U)Urine Culture Results 30,000 colonies/ml Mixed Bacterial Skin Contaminants 2 Days PERFORMED BY: [place] [address] PATHOLOGIST GOLF CART REPAIRER RAJANI BENTLEY M.D.NormalHealthpark Medical Center Physician GroupComment on above: Performed By: #### CUU #### [place] [id number] USAXR ABDOMEN MIN 2Von 22-36-[place]402[place], [place] [address] XRay Report Signed Patient: ROSELIA LO MR#: [id number] : 1980 Acct:[id number] Age/Sex: 44 / F ADM Date: 05/01/25 Loc: [facility] Attending Dr: Ainsley Sellers NP Ordering Physician: Aisnley Sellers NP Date of Service: 05/01/25 Procedure(s): XR abdomen min 2V Accession Number(s): [id number] cc: Ainsley Sellers NP [place] [address] Patient Name: ROSELIA LO MRN: [id number] date: 1980 Sex: F Assigned Patient Location: [facility] Current Patient Location: [facility] Accession/Order Number: [id number] Exam Date: 05/01/2025 10:51 Report Date: 05/01/2025 10:54 At the request of: AINSLEY SELLERS NP Procedure: XR abdomen min 2V ABDOMEN SERIES - 2 views COMPARISON: 02/12/2025 CLINICAL DATA: Microscopic hematuria Supine and upright views of the abdomen and pelvis were obtained. There is a small amount of air within small and large bowel loops on the right, without disproportionate distention. There are short air fluid levels. No free air is seen. A small amount of stool is visualized at the left colon. The right kidney is partially obscured. No obvious radiopaque renal or ureteral stones are noted. The left pelvic phlebolith was also visualized at the time of the prior. No soft tissue masses are seen. Subtle levoscoliotic curvature and minor degenerative changes seen are noted at the spine. There is mild sclerosis at the SI joints. There are clips from prior cholecystectomy. XR/XR abdomen min 2V IMPRESSION: NONSPECIFIC BOWEL GAS PATTERN. NO RADIOPAQUE STONES. Impression dictated by: Alisha Sánchez M.D. 05/01/2025 10:54 AM Dictation Location: [place] [address] Electronically authenticated by: [id number] Y Date: 05/01/2025 10:54 Dictated By: Alisha Sánchez M.D. Signed By: 05/01/25 1057 DD/ 1054 TD/TT: Primary School Teacher Librarian:TBHRadiology, Radiologist, MD - 05/01/2025 [place] [address] XRay Report Signed Patient: ROSELIA LO MR#: [id number] : 1980 Acct:[id number] Age/Sex: 44 / F ADM Date: 05/01/25 Loc: [facility] Attending Dr: Ainsley Sellers NP Ordering Physician: Ainsley Sellers NP Date of Service: 05/01/25 Procedure(s): XR abdomen min 2V Accession Number(s): [id number] cc: Ainsley Sellers NP [place] [address] Patient Name: ROSELIA LO MRN: [id number] date: 1980 Sex: F Assigned Patient Location: [facility] Current Patient Location: [facility] Accession/Order Number: [id number] Exam Date: 05/01/2025 10:51 Report Date: 05/01/2025 10:54 At the request of: AINSLEY SELLERS NP Procedure: XR abdomen min 2V ABDOMEN SERIES - 2 views COMPARISON: 02/12/2025 CLINICAL DATA: Microscopic hematuria Supine and upright views of the abdomen and pelvis were obtained. There is a small amount of air within small and large bowel loops on the right, without disproportionate distention. There are short air fluid levels. No free air is seen. A small amount of stool is visualized at the left colon. The right kidney is partially obscured. No obvious radiopaque renal or ureteral stones are noted. The left pelvic phlebolith was also visualized at the time of the prior. No soft tissue masses are seen. Subtle levoscoliotic curvature and minor degenerative changes seen are noted at the spine. There is mild sclerosis at the SI joints. There are clips from prior cholecystectomy. XR/XR abdomen min 2V IMPRESSION: NONSPECIFIC BOWEL GAS PATTERN. NO RADIOPAQUE STONES. Impression dictated by: Alisha Sánchez M.D. 05/01/2025 10:54 AM Dictation Location: [place] [address] Electronically authenticated by: [id number] Y Date: 05/01/2025 10:54 Dictated By: Alisha Sánchez M.D. Signed By: 05/01/25 1057 DD/ 1054 TD/TT: Primary School Teacher Librarian: AUDRA HealthcareRadiology Study observation (narrative)NOM HealthcareXR ABDOMEN MIN 2VOrdered By: Radiologist Radiology on 15-62-7184HSBVParkland Health Center Work Phone: TBU UA (CLEAN/CATCH) MICROSCOPIC IF INDICATEon 73-45-7713YRZHZLSAK URINENegativeNEGATIVENOMS HealthcareBLOOD URINETRACE-I NEGATIVENOIL HealthcareClarity (U)CLEARCLEARNOMS HealthcareColor (U)LT. YELLOW YELLOWNOIL HealthcareGLUCOSE URINE UANegativeNEGATIVE mg/dLNOIL Healthcare Ketones Ql (U)NegativeNEGATIVE mg/dLNOIL HealthcareLeukocyte esterase Test strip Ql (U)NegativeNEGATIVENOMS HealthcareNITRITE URINENegativeNEGATIVENOMS HealthcarepH (U)6.0 [pH]5.0 - 9.0NOMS HealthcarePROTEIN URINENegativeNEG/TRACE mg/dLNOIL HealthcareSPECIFIC GRAVITY URINE1.0151.005 - 1.025NOIL HealthcareURINE MICROSCOPIC INDICATEDYESNOIL HealthcareUROBILINOGEN URINE0.2 EU/dL0.2 - 1.0 EU/dLNOMS HealthcareCLINISYNCNOMS BohnkklsviUlS5v (Bld) [Mass fraction]on 70-84-4146Eyhcdrhuetygjl and review of laboratory resultsNormalLakeland Regional Hospital HealthcareLaboratory - Hematology and Cell countson 00-80-9929ZkH2x (Bld) [Mass fraction]5.4 %NOMS HealthcareXR WRIST LT MIN 3 VWSon 59-11-0736RF WRIST LT MIN 3 VWSXR WRIST LT MIN 3 VWS HISTORY: Pain, swelling, injury COMPARISON: None FINDINGS: Multiple views of the left wrist were obtained. Osseous structures are intact. No acute malalignment. No significant soft tissue abnormality. IMPRESSION: * No acute abnormality. Finalized by Jitendra Childs MD on 03/15/2025 3:58 PMNormalCincinnati Children's Hospital Medical Centerca [facility] Medical CenterXR ABDOMEN 1Von 96-18-3255[place]th[place], [place] [address] XRay Report Signed Patient: ROSELIA LO MR#: [id number] : 1980 Acct:[id number] Age/Sex: 44 / F ADM Date: 02/12/25 Loc: [facility] Attending Dr: Ainsley Sellers NP Ordering Physician: Ainsley Sellers NP Date of Service: 02/12/25 Procedure(s): XR abdomen 1V Accession Number(s): [id number] cc: Ainsley Sellers NP [place] [address] Patient Name: ROSELIA LO MRN: [id number] date: 1980 Sex: F Assigned Patient Location: [facility] Current Patient Location: [facility] Accession/Order Number: [id number] Exam Date: 02/12/2025 15:24 Report Date: 02/12/2025 [...] Phipps Jr., D.O.02/12/2025 3:25 PM Dictation Location: [place] [address] Electronically authenticated by: [id number] Y Date: 02/12/2025 15:25 Dictated By: Alexander Phipps M.D. Signed By: 02/12/25 152 DD/ 24 TD/TT: Primary School Teacher Librarian:ALVINOadiologRona momin, - 02/12/2025 [place] [address] XRay Report Signed Patient: ROSELIA LO MR#: [id number] : 1980 Acct:[id number] Age/Sex: 44 / F ADM Date: 02/12/25 Loc: [facility] Attending Dr: Ainsley Sellers NP Ordering Physician: Ainsley Sellers NP Date of Service: 02/12/25 Procedure(s): XR abdomen 1V Accession Number(s): [id number] cc: Ainsley Sellers NP [place] [address] Patient Name: ROSELIA LO MRN: [id number] date: 1980 Sex: F Assigned Patient Location: [facility] Current Patient Location: [facility] Accession/Order Number: [id number] Exam Date: 02/12/2025 15:24 Report Date: 02/12/2025 15:25 At the request of: AINSLEY SELLERS NP Procedure: XR abdomen 1V KUB: CLINICAL INFORMATION: Left flank pain COMPARISON: CT abdomen and pelvis 10/22/2024 FINDINGS: A phlebolith is seen within the pelvis. No suspicious urinary tract calcifications. No bowel obstruction or free air. XR/XR abdomen 1V IMPRESSION: No acute process. Impression dictated by: Alexander Phipps Jr. DLouieOLouie02/12/2025 3:25 PM Dictation Location: [place] [address] Electronically authenticated by: [id number] Y Date: 02/12/2025 15:25 Dictated By: Alexander Phipps M.D. Signed By: 02/12/25 1527 DD/ 24 TD/TT: Primary School Teacher Librarian: NOMS HealthcareRadiology Study observation (narrative)[facility] HealthcareXR ABDOMEN 1VOrdered By: Radiologist Radiology on 49-47-3764PQUDParkland Health Center Work Phone: aLL BASIC METABOLIC PANELon 49-75-8095Opaiu gap [Moles/Vol]13.1 mmol/LNOMS HealthcareCalcium [Mass/Vol]8.8 mg/dL8.5 - 10.1 mg/dL [facility] HealthcareChloride [Moles/Vol]106 mmol/L98 - 107 mmol/LNOMS HealthcareCO2 [Moles/Vol]25.2 mmol/L21.0 - 32.0 mmol/LNOMS HealthcareCreatinine [Mass/Vol]1.25 mg/dLHigh0.55 - 1.02 mg/dLNOIL HealthcareGFR/1.73 sq M.predicted CKD-EPI (S/P/Bld) [Vol rate/Area]56Low>=60 mL/min/1.73m 2NOMS HealthcareGlucose [Mass/Vol]118 mg/xYBuge35 - 106 mg/dLNOIL HealthcareInterpretation and review of laboratory resultsAbnormalNOIL HealthcarePotassium [Moles/Vol]4.3 mmol/L3.5 - 5.1 mmol/LNOMS HealthcareSodium [Moles/Vol]140 mmol/L136 - 145 mmol/LNOMS HealthcareTBH EGFR-NON AF TZLEWGSD55Pte>=60 mL/min/1.73m 2NOMS HealthcareUrea nitrogen [Mass/Vol]9 mg/dL7.0 - 18.0 mg/dLNOIL HealthcareUrea nitrogen/Creatinine [Mass ratio]7.2 mg/mgNOIL HealthcareCLINISYNCNALLIANCEHEALTH SEMINOLE – [facility] Healthcare COMPLETE BLOOD COUNTon 76-99-9522Jgculxtizfj distribution width (RBC) [Ratio] 13.9 %Acjnhw74.5-15.0ProGraham Regional Medical CenterComment on above:Performed By: #### 23595-3, 3016-3, 96033-7, 2842-3, 3024-7, CBC, 42169-4 #### [facility] ([id number]) [address] [place], [place] [address]Ycomazewbj (Bld) [Volume fraction]44.3 %Wuubuw69-85GdyDluaca Denmark HospitalComment on above:Performed By: #### 37348-4, 3016-3, 73039-1, 2842-3, 3024-7, CBC, 91654-9 #### [facility] ([id number]) [address], [address] [place], [place] [address]Vyhwbmdbsg (Bld) [Mass/Vol]15.2 g/cYYtfaib93.7-15.5ProMedOrange County Global Medical CenterComment on above:Performed By: #### 79741-8, 3016-3, 97657-8, 2842-3, 3024-7, CBC, 92294-8 #### [facility] ([id number]) [address], [address] [place], [place] [address]KKQ (RBC) [Entitic mass]34.0 khAlpntu45-14QpfOcnxatGraham Regional Medical CenterComment on above:Performed By: #### 96322-4, 3016-3, 41730-7, 2842-3, 3024-7, CBC, 89505-2 #### [facility] ([id number]) [address], [address] [place], [place] [address]DNYI (RBC) [Mass/Vol]34.4 g/vEUeqpbr62-57WkyUdeontGraham Regional Medical CenterComment on above:Performed By: #### 20829-9, 3016-3, 33701-6, 2842-3, 3024-7, CBC, 79243-0 #### [facility] ([id number]) [address], [address] [place], [place] [address]HXE (RBC) [Entitic vol]99 fHQvngyy23-101SpfBwznhn [facility]remont HospitalComment on above:Performed By: #### 68961-0, 3016-3, 96956-7, 2842-3, 3024-7, CBC, 05141-7 #### [facility] ([id number]) [address], [address] [facility] [place] [address]Nlpkpmce mean volume (Bld) [Entitic vol]9.3 fLNormal7-12 ProMAdventist Medical CenterComment on above:Performed By: #### 44279-4, 3016-3, 99624-6, 2842-3, 3024-7, CBC, 40354-6 #### [facility] ([id number]) [address], [address] [place] [address]Fmskkznlg (Bld) [#/Vol]285 10*3/cFNzfxan120-585YsyHxgxam [facility]remont HospitalComment on above:Performed By: #### 09016-4, 3016-3, 59833-5, 2842-3, 3024-7, CBC, 78836-4 #### [facility] ([id number]) [address], [address] [place] [address]NLH COUNT4.47 X10E12/LNormal3.80-5.20[facility] Comment on above:Performed By: #### 63540-2, 3016-3, 82420-0, 2842-3, 3024-7, CBC, 02999-2 #### [facility] ([id number]) [address], [address] [place] [address]VRC (Bld) [#/Vol]10.0 10*3/uLNormal4.0-11.0Bl[facility] Valley Health SystemComment on above:Performed By: #### 94707-9, 3016-3, 58662-5, 2842-3, 3024-7, CBC, 49215-1 #### [facility] ([id number]) [address], [address] [place] [address]HWID T4on 09-83-7995Ofcu T4 [Mass/Vol]1.05 ng/dLNormal0.61-1.60 [facility] Health SystemComment on above:Performed By: #### 42575-7, 3016-3, 52835-7, 2842-3, 3024-7, CBC, 29282-7 #### [facility] ([id number]) [address] [place], [place] [address]Bbcydmzduje Qnon 14-63-6662KXGDWRKR STIM HORMONE3.3 mIU/mLNormal [facility] Medical CenterComhawthorn center on above:Result Comment: NORMAL FEMALE Luteal 1.8-5.1 mIU/mL Follicular 3.8-8.8 mIU/mL Mid Cycle 4.5-22.5 mIU/mL [place] 16.7-113.6 mIU/mL Performed By: #### 44123-7, 3016-3, 14452-4, 2842-3, 3024-7, CBC, 33575-1 #### [facility] ([id number]) [address], [address] [place], [place] [address]AAA.beta subunit IA 3rd IS Qnon 71-07-2191BIJWS B HCG,3RD I.S.<5 NormalProMedica Salinas Valley Health Medical CenterComhawthorn center on above:Result Comment: NEW REFERENCE RANGE WEEKS (SINCE LMP) [...] trophoblastic or nontrophoblastic neoplasms. Performed By: #### 18759-2, 3016-3, 47911-0, 2842-3, 3024-7, CBC, 02006-2 #### [facility] ([id number]) [address], [address] [place] [address]Biphakeq Qnon 15-93-2745DWXXGBRAUDE HORMONE5.7 mIU/mLNormal ProMAdventist Medical CenterComment on above:Result Comment: NORMAL FEMALE Follicular 2.1-10.9 mIU/mL Mid Cycle 19.2-103 mIU/mL Luteal 1.2-12.9 mIU/mL Post [place] 10.9-58.6 mIU/mL Performed By: #### 42176-4, 3016-3, 52215-1, 2842-3, 3024-7, CBC, 06824-0 #### [facility] ([id number]) [address], [address] [place] [address]Hdhtfrxov [Mass/Vol]on 86-96-8332FFPWURMVF96.5 ng/mLNormal 3.3-26.7ProGraham Regional Medical CenterComment on above:Performed By: #### 67778-5, 3016-3, 99692-6, 2842-3, 3024-7, CBC, 65338-8 #### [facility] ([id number]) [address], [address] [place] [address]NEG Qnon 55-73-5345WLW3.89 uIU/mLNormal0.49-4.67ProGraham Regional Medical CenterComment on above:Performed By: #### 36297-3, 3016-3, 37779-0, 2842-3, 3024-7, CBC, 78619-9 #### [facility] ([id number]) [address], [address] [place] [address]O-kpd reportOrdered By: Alexander Phipps on 47-53-0309Qvyxa reportFIRMERCY HEALTH WILLARD [facility] Main [address] [address] XRay Report Signed Patient: Roselia Lo MR #: [id number] : 1980 Acct:[id number] Age/Sex: 44 / F ADM Date: 5 Loc: XDUCLY Room: Type: REG CLI Attending Dr: Ivonne Joaquin PRODUCT APPLICATIONS SCIENTIST Copies to: Ivonne Joaquin APRN~ Ordering Provider: Ivonne Joaquin APRN Date of Service: 01/11/25 XR/XR wrist LT min 3V*: LEFT WRIST PAIN ([id number]) XR/XR hand LT min 3V*: LEFT HAND [...] PROCESS. Impression dictated by: Alexander Phipps Jr., VirginiaOLouie01/11/2025 2:03 PM Dictation Location: [place] [address] Transcribed By: [facility] 01/11/25 1403 Dictated By: Alexander Phipps Jr, DO 01/11/25 1402 Signed By: 01/11/25 1403 [facility] min 3V*on 41-35-5998FJ hand LT min 3V*[facility] Main [address] [address] XRay Report Signed Patient: Roselia Lo MR#: [id number] : 1980 Acct:[id number] Age/Sex: 44 / F ADM Date: 01/11/25 Loc: XDUC Room: Type: REG CLI Attending Dr: Ivonne Joaquin PRODUCT APPLICATIONS SCIENTIST Copies to: Ivonne Joaquin APRN Ordering Provider: Ivonne Joaquin APRN Date of Service: 01/11/25 XR/XR wrist LT min 3V*: LEFT WRIST PAIN ([id number]) XR/XR hand LT min 3V*: LEFT HAND [...] PROCESS. Impression dictated by: Alexander Phipps Jr., D.OLouie01/11/2025 2:03 PM Dictation Location: [facility]- Transcribed By: [facility] 01/11/25 1403 Dictated By: Alexander Phipps Jr, DO 01/11/25 1402 Signed By: 01/11/25 1403NoNov[facility] Health [facility] Physician GroupHCG ( test) IA.rapid Ql (U)Ordered By: Ángela Bennett on 17-05-9385IUZ ( test) Ql (U)Urine human chorionic gonadotropin (hCG) detection by immunoassayBarberton Citizens Hospital,Urineon 05-44-2570Lctd HCG ( test) Ql (U)NegativeNoNovant Health Brunswick Medical Center Physician [facility] HealthComment on above:Result Comment: PERFORMED BY: [place] [address] PATHOLOGIST GOLF CART REPAIRER KARRIE SANTOS M.D.Performed By: #### UHCG #### [place] [address] AYADLon 12-19-2024L Specimen: [id number] Received: 12/19/24 Status: CHRISTINA [place] Num: [id number] Spec Type: Surgical Subm Dr: Ángela Bennett MD Tissues: A Colon Biopsy (DESCENDING COLON POLYP) Procedures: HE/2, Gross/Micro L4 Age/ Patient Sex Location Account Attending Physician Roselia Lo 44/F [id number] Ángela Bennett MD SPEC NUM: [id number] RECD: 12/19/24 STATUS: CHRISTINA [place] NUM: [id number] DEEPA: 12/19/[address] [facility] [address]: Ángela Bennett MD ENTERED: 12/19/24 CARMELITA MONAE: LUCY TYPE: Surgical DEPT: S ENTERED BY: [id number] RECV BY: [id number] ORDERED: HE/2, Gross/Micro L4 ORDERED: HE/2, Gross/Micro L4 Pathological Diagnosis Colon, descending, polypectomy: - Tubular adenoma. Clinical Information Diverticulitis, colon polyp. Gross Description Received in formalin labeled with the patients name, date of , and descending polyp is a castillo-smith, focally erythematous, friable, 0.3 cm in greatest dimension polypoid fragment. The specimen is entirely submitted in a single cassette. (1, ns, S22- 176 A) Microscopic Description Microscopic examination is performed. CPT Codes 67664 Specimen: [id number] Received: 12/19/24 Status: CHRISTINA [place] Num: [id number] Spec Type: Surgical Subm Dr: Ángela Bennett MD Tissues: A Colon Biopsy (DESCENDING COLON POLYP) Procedures: HE/2, Gross/Micro L4 Patient: JulianRoselia [id number] (Continued) Signed (signature on file) Aayush Aly MD 12/20/24 1132NoFormerly [facility] Physician GroupCHLAMYDIA/GC PCR, FLon 44-19-3037IBHUNVRFW/GC PCR, FLCHLAMYDIA PCR, FL Negative (qualifier value) Chlamydia trachomatis not detected by nucleic acid amplification. This does not exclude the possibility of infection because results are dependent on adequate specimen collection. GONORRHOEAE PCR, FL Negative (qualifier value) Neisseria gonorrhoeae not detected by nucleic acid amplification. This does not exclude the possibility of infection because results are dependent on adequate specimen collection.[facility] Comment on above:Performed By: #### CGTPCR #### [facility] ([id number]) [address] [place] [address] [address] [place], [place] [address]Cytologyon 83-15-8524RmpyizpqWpdfdfQddAkbodq [facility] Comment on above:Result Comment: [facility] [address] [place] [address] Gynecologic Cytology Consultation Patient Name:ROSELIA LO:1980 (Age: 44)Gender:FTaken:11/23/2024Reported:12/06/2024Physician(s):Aicha Wright C.N.PLouie ([phone])Copy To: Rec. #:[id number]: #[id number] Final Cytologic Interpretation ThinPrep Pap Test (Cervical): Satisfactory for evaluation. A transformation zone component is not identified via imaging-assistedreview, using Face++ Thin Prep Imaging System, within 22 microscopic noe of view. NEGATIVE FOR INTRAEPITHELIAL LESION OR MALIGNANCY. [facility]/12/06/2024 Interpretation performed at [facility], [address] [place] [address], License number: [id number]. Electronically Signed Out By LINDA White(ASCP) Date of Last Menstrual Period: 11/19/24 Other Clinical Conditions: Z01.419 Receiving Checker exam wo/abn findings Z12.4 Screening for malignant neoplasm of cervix Z11.3 Encntr screen for infections w sexl mode of transmiss Source of Specimen ThinPrep Pap Test (Cervical) Thin Prep Pap (FACILITIES PLANNER) Fee Code(s): G0145 The Pap test is a screening test with an inherent, but low, probability of error. The Pap test is primarily effective for the diagnosis and prevention of squamous cell carcinoma. Regular screening iscritical for prevention. ThinPrep liquid-based slides, which meet the Mine Safety Director criteria for automated screening, have been screened by the ThinPrep Imaging System (as of 07/17/07) along with an additional manual rescreening by a mushroom press operator and, if indicated, by a pathologist.HIGH RISK HPV W/GENOon 72-78-2687NIL 31+33+35+39+45+51+52+56+58+59+66+68 DNA KAREN+probe Ql (Cvx)HPV SPECIMEN TYPE ThinPrep HPV 16 Negative (qualifier value) HPV 18 Negative (qualifier value) OTHER HIGH RISK HPV Positive (qualifier value) For the DNA of any or combination of the following HPV types: 31,33,35,45, 52,56,58,59,66 and 68.NormalProMedica Salinas Valley Health Medical CenterComment on above:Performed By: #### 63783-7 #### [facility] ([id number]) [address] [place] [address], [place] [address] [facility] ([id number]) [address], [address] [place], [place] [address]NCD ( test) IA.rapid Ql (U)Ordered By: Christos Ellsworth on [id number] ( test) Ql (U)NegativeMercy HealthBasophils Auto (Bld) [#/Vol]Ordered By: Say Cutler on 60-70-4426Bfmbnklin (Bld) [#/Vol]0.0 10*3/uL0.0-0.2FFostoria City HospitalBasophils/100 WBC Auto (Bld)Ordered By: Say Cutler on 35-06-2919Knpgrepia/100 WBC (Bld)0.3 %. Mercy HealthCalcium [Mass/volume] in Serum or PlasmaOrdered By: Say Cutler on 14-73-8940Dzrfhxf [Mass/Vol]8.8 mg/dL8.6-10.3FFostoria City HospitalCarbon dioxide, total [Moles/volume] in Serum or Plasma Ordered By: Say Cutler on 15-43-8896WT2 [Moles/Vol]25.6 mmol/L21.0-31.0Mercy HealthChloride [Moles/volume] in Serum or PlasmaOrdered By: aSy Cutler on 93-65-6749Pajjlcsv [Moles/Vol]106 mmol/F96-083HhnfnqpokMercy HealthCreatinine [Mass/volume] in Serum or PlasmaOrdered By: Say Cutler on 60-26-9875Wxuqcozeee [Mass/Vol]1.30 mg/dLHigh0.60-1.20Mercy HealthEosinophils Auto (Bld) [#/Vol]Ordered By: Say Cutler on 04-16-2024 Eosinophils (Bld) [#/Vol]0.5 10*3/uLHigh0.0-0.45Mercy HealthEosinophils/100 WBC Auto (Bld)Ordered By: Say Cutler on 04-16-2024 Eosinophils/100 WBC (Bld)6.3 %.Mercy HealthErythrocyte distribution width Auto (RBC) [Ratio]Ordered By: Say Cutler on 04-16-2024 Erythrocyte distribution width (RBC) [Ratio]13.6 %11.9-15.3FFostoria City HospitalGlucose [Mass/volume] in Serum or PlasmaOrdered By: Say Cutler on 35-25-2756Puftmis [Mass/Vol]63 mg/aCBre23-748PhtcbotafMercy Health Comment on above:ADA recommended reference rangeRandom Glucose Reference Range is dependent on time and content of last meal. Glucose of more than 200 mg/dL in a nonstressed, ambulatory subject supports the diagnosisof Diabetes Mellitus. Hematocrit Auto (Bld) [Volume fraction]Ordered By: Say Cutler on 04-16-2024 Hematocrit (Bld) [Volume fraction]40.2 %34.0-46.4FFostoria City HospitalHemoglobin [Mass/volume] in BloodOrdered By: Say Cutler on 04-16-2024 Hemoglobin (Bld) [Mass/Vol]13.6 g/dL11.8-15.4FFostoria City Hospital Leukocytes [#/volume] corrected for nucleated erythrocytes in Blood by Automated counOrdered By: Say Cutler on 72-72-6513IPY corrected for nucl RBC Auto (Bld) [#/Vol]8.3 10*3/uL3.8-11.6FFostoria City HospitalLymphocytes Auto (Bld) [#/Vol]Ordered By: Say Cutler on 08-88-2150Pvxtcbpiagn (Bld) [#/Vol]1.8 10*3/uL1.00-4.8Mercy HealthLymphocytes/100 WBC Auto (Bld) Ordered By: Say Cutler on 92-14-2381Adtovvcukdw/100 WBC (Bld)22.0 %.[facility] HospitalH Auto (RBC) [Entitic mass]Ordered By: Say Cutler on 11-13-4673OGI (RBC) [Entitic mass]33.3 pg24.7-34.3FFostoria City HospitalMCHC Auto (RBC) [Mass/Vol]Ordered By: Say Cutler on 13-72-7497RVME (RBC) [Mass/Vol]33.9 g/dL32.0-35.0Mercy HealthMCV Auto (RBC) [Entitic vol]Ordered By: Say Cutler on 71-16-8386QYO (RBC) [Entitic vol]98.2 fL 80-100Mercy HealthMonocytes Auto (Bld) [#/Vol]Ordered By: Say Cutler on 97-31-9847Mvuswrtjs (Bld) [#/Vol]0.7 10*3/uL0.0-0.8Mercy HealthMonocytes/100 WBC Auto (Bld)Ordered By: Say Cutler on 81-25-1904Qpgskhyog/100 WBC (Bld)8.7 %.[facility] Neutrophils Auto (Bld) [#/Vol]Ordered By: Say Cutler on 42-63-2053Ymwugbjkrje (Bld) [#/Vol]5.2 10*3/uL1.8-7.7FFostoria City HospitalNeutrophils/100 WBC Auto (Bld)Ordered By: Say Cutler on 39-48-1898Xkrdtvuvgxt/100 WBC (Bld)62.7 %.Mercy HealthNo Panel InformationOrdered By: Say Cutler on 93-80-0128Airsynpkz GFR (CKD-EPI)52.325 mL/MinMercy Health Pharmacy Creatinine Clearance (ChemN/AFFostoria City HospitalNucleated erythrocytes [Presence] in Blood by Automated countOrdered By: Say Cutler on 08-41-2727Gbvqddfhl RBC Auto Ql (Bld)0.1 /100{WBC}0-0.5FFostoria City HospitalPlatelet mean volume Auto (Bld) [Entitic vol]Ordered By: Say Cutler on 56-13-0653Kjfuedgi mean volume (Bld) [Entitic vol]9.3 fL6.3-10.7 Mercy HealthPlatelets Auto (Bld) [#/Vol]Ordered By: Say Cutler on 02-96-1541Wzxamiwyh (Bld) [#/Vol]205 10*3/rI831-257NhmwatrcfMercy HealthPotassium [Moles/volume] in Serum or PlasmaOrdered By: Say Cutler on 44-59-0287Jkphugijx [Moles/Vol]4.3 mmol/L3.5-5.1FFostoria City HospitalRBC Auto (Bld) [#/Vol]Ordered By: Say Cutler on 80-00-4211WSN (Bld) [#/Vol]4.10 10*6/uL3.60-5.00[facility] Companyerum or plasma anion gap determinationOrdered By: Say Cutler on 27-54-2222Qwwst gap [Moles/Vol] 11.7 mmol/L6.0-15.0[facility] Companyodium [Moles/volume] in Serum or PlasmaOrdered By: Say Cutler on 25-22-1260Cbskae [Moles/Vol]139 mmol/L 136-145Mercy HealthUrea nitrogen [Mass/volume] in Serum or PlasmaOrdered By: Say Cutler on 93-59-6343Yfba nitrogen [Mass/Vol]12 mg/dL7-25 Mercy HealthWBC Auto (Bld) [#/Vol]Ordered By: Say Cutler on 80-36-3546EXG (Bld) [#/Vol]8.3 10*3/uL3.8-11.6FFostoria City Hospital COVID/FLU/RSV RT-PCRon 13-39-6010OQVA-CoV-2 (COVID-19) RNA KAREN+probe Ql (Unsp spec)NegativeNoPlatypus TV Other COVID/FLU/RSV RT-PCRNegativeNoGrow Mobile Other 141-8568YKPV-LvZ-2 (COVID-19) RNA KAREN+probe Ql (Resp)on 82-80-2267WNWJ-CoV-2 (COVID-19) RNA KAREN+probe Ql (Unsp spec)PositiveNoGrow Mobile Other ANA by IFAon 07-79-7750Iahyimxuume Antibodies, IFA NegativeNoHolzer HospitalComment on above:Result Comment: Negative <1:80 Borderline 1:80 Positive >1:80 ICAP nomenclature: AC-0 For more information about Hep-2 cell patterns use ANApatterns.org, the official website for the International Consensus on Antinuclear Antibody (REJI) Patterns (ICAP).Performed By: #### ANAIFA #### [facility] [address] [place] [address] [address] [address] Andre HaynesTHYROID ANTIBODIESon 36-90-5673Vtfgbqmijeltc Antibody<1.0Normal 0.0-0.9[facility] Medical CenterComment on above:Result Comment: Thyroglobulin Antibody measured by Kingsoft MethodologyPerformed By: #### THYRABS #### [facility] [address] [place] [address] Dr. Andre HaynesThyroid Peroxidase (TPO) Ab10 IU/mLNormal0-34The [facility] HospitalComment on above:Performed By: #### THYRABS #### [facility] [address] [place] [address] Dr. Andre HaynesANTISTREPTOLYSIN O AB (ASO)on 43-61-1905Dogkduluykqhfzfp O Ab <20.1Ztmlgq2.0-200.0The [facility] HospitalComment on above:Performed By: #### ASOAB #### [facility] [address] [place] [address] Dr. Andre HaynesRHEUMATOID FACTORon 32-96-2511YS Latex Turbid.<10.0Normal<14.0The [facility] HospitalComment on above:Performed By: #### RF #### [facility] [address] [place] [address] Dr. Andre HaynesCBC AUTO DIFFon 20-36-9741CEUZ #0.0 103/ulNormal0.0-0.1The [facility] HospitalComment on above:Performed By: #### CBC #### [facility] [address] [place] [address] Dr. Andre HaynesBasophils/100 WBC (Bld)0.3 %Normal0.2-2.0[facility] Comment on above:Performed By: #### CBC #### [facility] [address] [place] [address] Dr. Andre Owens #0.4 103/ulNormal0.0-0.7The [facility] HospitalComment on above: Performed By: #### CBC #### [facility] [address] [place] [address] Dr. Andre Agosinophils/100 WBC (Bld)4.0 %Normal0.9-7.0The [facility] Comment on above:Performed By: #### CBC #### [facility] [address] [place] [address] Dr. Andre Agrythrocyte distribution width (RBC) [Ratio]12.5 %Tmyeee34.0-15.0 The [facility] HospitalComment on above:Performed By: #### CBC #### [facility] [address] [place] [address] Dr. Andre HaynesHematocrit (Bld) [Volume fraction]41.9 %Qafliz85.0-48.0The [facility] HospitalComment on above:Performed By: #### CBC #### [facility] [address] [place] [address] Dr. Andre HaynesHemoglobin (Bld) [Mass/Vol]14.4 g/sZXuebyx90.0-16.0The [facility] HospitalComment on above:Performed By: #### CBC #### [facility] [address] [place] [address] Dr. Andre Cho #0.04 10e3/ulCritically high0.00-0.03The [facility] Comment on above:Performed By: #### CBC #### [facility] [address] [place] [address] Dr. Andre Cho %0.4 %Normal0.0-0.5The [facility] HospitalComment on above: Performed By: #### CBC #### [facility] [address] [place] [address] Dr. Andre Mancuso #2.6 103/ulNormal1.2-3.8The [facility] HospitalComment on above:Performed By: #### CBC #### [facility] [address] [place] [address] Dr. Andre Rodriguezhocytes/100 WBC (Bld)29.2 %Fstmki01.5-60.0The [facility] Hospitalment on above:Performed By: #### CBC #### [facility] [address] [place] [address] Dr. Andre GaytanUAL DIFF REQNONormalThe [facility] HospitalComment on above: Performed By: #### CBC #### [facility] [address] [place] [address] Dr. Andre Little (RBC) [Entitic mass]33.3 lyOhnuzk69.7-34.0The [facility] HospitalComment on above:Performed By: #### CBC #### [facility] [address] [place] [address] Dr. Andre Sanz (RBC) [Mass/Vol]34.4 g/pVHvccgs25.9-35.2The [facility] HospitalComment on above:Performed By: #### CBC #### [facility] [address] [place] [address] Dr. Andre Sanz (RBC) [Entitic vol]97.0 cZQvbhyh53.0-99.0The [facility] HospitalComment on above:Performed By: #### CBC #### [facility] [address] [place] [address] Dr. Andre Tam #0.6 103/ulNormal0.3-0.8The [facility] HospitalComment on above:Performed By: #### CBC #### [facility] [address] [place] [address] Dr. Andre Contrerasocytes/100 WBC (Bld)6.4 %Normal1.7-12.0The [facility] Comment on above:Performed By: #### CBC #### [facility] [address] [place] [address] Dr. Andre Cartwright #5.4 103/ulNormal1.4-6.5The [facility] HospitalComment on above:Performed By: #### CBC #### [facility] [address] [place] [address] Dr. Adnre Pachecoutrophils/100 WBC (Bld)59.7 %Yvmzrp49.0-75.0The [facility] HospitalComment on above:Performed By: #### CBC #### [facility] [address] [place] [address] Dr. Andre Lynnlet mean volume (Bld) [Entitic vol]9.9 fLNormal9.5-13.5The [facility] HospitalComment on above:Performed By: #### CBC #### [facility] [address] [place] [address] Dr. Andre HaynesPLT217 103/dhMhzctt945-391Zht [facility] HospitalComment on above: Performed By: #### CBC #### [facility] [address] [place] [address] Dr. Andre HaynesRBC4.32 106/ulNormal4.20-5.40The [facility] HospitalComhawthorn center on above:Performed By: #### CBC #### [facility] [address] [place] [address] Dr. Andre HaynesWBC9.0 103/ulNormal4.0-11.0The [facility] HospitalComment on above: Performed By: #### CBC #### [facility] [address] [place] [address] Dr. Andre HaynesCRChato 47-03-8195PAC [Mass/Vol]mg/LNormal<=1.0The [facility] HospitalComment on above:Performed By: #### RF #### [facility] [address] [place] [address] Dr. Andre HaynesFERRITINon 60-79-0145Qydfseeg [Mass/Vol]35.0 ng/mLNormal6.2-137.0 [facility] on above:Performed By: #### RF #### [facility] [address] [place] [address] Dr. Andre Friend T3on 49-84-7181NYRR T33.61 pg/mlLNormal2.18-3.98The [facility] HospitalComhawthorn center on above:Performed By: #### RF #### [facility] [address] [place] [address] Dr. Andre Friend T4on 27-17-6587Zgsk T4 [Mass/Vol]1.00 ng/dLNormal0.76-1.46 [facility] on above:Performed By: #### RF #### [facility] [address] [place] [address] Dr. Andre HaynesIROKarla 19-02-8743Tbfa [Mass/Vol]87.0 ug/vQPomlok29.0-170.0The [facility] HospitalComment on above:Performed By: #### RF #### [facility] [address] [place] [address] Dr. Andre Au PROFILEon 12-42-8923Xyamzsa [Mass/Vol]3.7 g/dLNormal3.4-5.0 The [facility] HospitalComment on above:Performed By: #### RF #### [facility] [address] [place] [address] Dr. Andre HaynesAlbumin/Globulin [Mass ratio]1.3 {ratio}NormalThe [facility] HospitalComment on above:Performed By: #### RF #### [facility] [address] [place] [address] Dr. Andre Kramer [Catalytic activity/Vol]74 U/TVpcrwh77-015Tyz [facility] HospitalComment on above:Performed By: #### RF #### [facility] [address] [place] [address] Dr. Andre Deluna [Catalytic activity/Vol]24 U/GIlskxv33-41Mzh [facility] Hospitalment on above:Performed By: #### RF #### [facility] [address] [place] [address] Dr. Andre Wong [Catalytic activity/Vol]13 U/LCritically yas94-12Xzn [facility] Hospitalment on above:Performed By: #### RF #### [facility] [address] [place] [address] Dr. Andre Matta, CONJUGATED0.1 mg/dLNormal0.0-0.2The [facility] Comment on above:Performed By: #### RF #### [facility] [address] [place] [address] Dr. Andre Bey [Mass/Vol]0.3 mg/dLNormal0.2-1.0The [facility] Comment on above:Performed By: #### RF #### [facility] [address] [place] [address] Dr. Yilan ChangGlobulin (S) [Mass/Vol]2.8 g/dLNormalThe [facility] HospitalComment on above:Performed By: #### RF #### [facility] [address] [place] [address] Dr. Andre HaynesProtein [Mass/Vol]6.5 g/dLNormal6.4-8.2[facility] Comment on above:Performed By: #### RF #### [facility] [address] [place] [address] Dr. Andre HaynesPROF CHEM 8 (BAS METB)on 00-07-1806Zctel gap [Moles/Vol]12.0 mmol/LNormalTrumbull Regional Medical CenterComment on above:Performed By: #### FT3, LIVER, BMP, TSH, URIC, CRP #### [facility] [address] [place] [address] Dr. Andre HaynesCalcium [Mass/Vol]8.8 mg/dLNormal8.5-10.1[facility] Comment on above:Performed By: #### FT3, LIVER, BMP, TSH, URIC, CRP #### [facility] [address] [place] [address] Dr. Andre HaynesChloride [Moles/Vol]104 mmol/LIzpxqj35-226LpwTrumbull Regional Medical Center Comment on above:Performed By: #### FT3, LIVER, BMP, TSH, URIC, CRP #### [facility] [address] [place] [address] Dr. Andre HaynesCO2 [Moles/Vol]25.8 mmol/BFvjtrg84.0-32.0[facility] Comment on above:Performed By: #### FT3, LIVER, BMP, TSH, URIC, CRP #### [facility] [address] [place] [address] Dr. Andre HaynesCreatinine [Mass/Vol]1.05 mg/dLCritically high0.55-1.02[facility] Medical CenterComment on above:Performed By: #### FT3, LIVER, BMP, TSH, URIC, CRP #### [facility] [address] [place] [address] Dr. Yilan ChangEGFR-AF PRYDEINIG>60Normal>=60The [facility] HospitalComment on above:Performed By: #### FT3, LIVER, BMP, TSH, URIC, CRP #### [facility] [address] [address] [address] Andre AgGFR-NON AF CDMLTLYQ42 mL/min/1.14d5Jgaqvqpeoo low>=60The [facility] HospitalComment on above:Performed By: #### FT3, LIVER, BMP, TSH, URIC, CRP #### [facility] [address] [place] [address] Dr. Andre HaynesGlucose [Mass/Vol]85 mg/gWHqgiks64-666FeaTrumbull Regional Medical Center Comment on above:Performed By: #### FT3, LIVER, BMP, TSH, URIC, CRP #### [facility] [address] [place] [address] Dr. Andre HaynesPotassium [Moles/Vol]3.8 mmol/LNormal3.5-5.1[facility] Comment on above:Performed By: #### FT3, LIVER, BMP, TSH, URIC, CRP #### [facility] [address] [place] [address] Dr. Andre HaynesSodium [Moles/Vol]138 mmol/DKziinz047-972EdpTrumbull Regional Medical Center Comment on above:Performed By: #### FT3, LIVER, BMP, TSH, URIC, CRP #### [facility] [address] [place] [address] Dr. Andre HaynesUrea nitrogen [Mass/Vol]11.0 mg/dLNormal7.0-18.0[facility] Medical CenterComment on above:Performed By: #### FT3, LIVER, BMP, TSH, URIC, CRP #### [facility] [address] [place] [address] Dr. Andre HaynesUrea nitrogen/Creatinine [Mass ratio]10.5 mg/mgNormalThe [facility] HospitalComment on above:Performed By: #### FT3, LIVER, BMP, TSH, URIC, CRP #### [facility] [address] [place] [address] Dr. Andre Sparks 97-46-7592INM Coag (PPP) [Relative time]1.01 {INR} NormalThe [facility] HospitalComment on above:Performed By: #### PTT, PT #### [facility] [address] [place] [address] Dr. Andre Ni [facility] HospitalComment on above:Result Comment: DESIRED INR: 2.0 - 3.0 CONDITIONS NOT LISTED BELOW 2.5 - 3.5 FOR PROSTHETIC HEART VALVE REPLACEMENT 2.5 - 3.5 RECURRENT THROMBOSIS Performed By: #### PTT, PT #### [facility] [address] [place] [address] Dr. Andre HaynesPT Coag (PPP) [Time]10.9 sNormal9.0-11.6The [facility] Comment on above:Performed By: #### PTT, PT #### [facility] [address] [place] [address] Dr. Andre Duncan 84-08-4989bVLW Coag (Bld) [Time]27.2 uLnhugy77.3-36.2[facility] Medical CenterComment on above:Performed By: #### PTT, PT #### [facility] [address] [place] [address] Dr. Andre Miramontes RATE WESTERGRENon 40-96-6399WFB RATE1 mm/hrNormal<=20The [facility] HospitalComment on above:Performed By: #### ASOAB #### [facility] [address] [place] [address] Dr. Andre Fisher 48-75-4378VCT9.218 uIU/mLNormal0.358-3.740Tr[facility] Regional Medical CenterComment on above:Performed By: #### RF #### [facility] [address] [place] [address] Dr. Andre Ryan [facility] BELOWCleveland Clinic Fairview HospitalComment on above: Result Comment: <0.34 UIU/ml HYPERTHYROID 0.34-5.60 UIU/ml EUTHYROID >5.60 UIU/ml HYPOTHYROIDPerformed By: #### RF #### [facility] [address] [place] [address] Dr. Andre Mann (CLEAN/CATCH) ACCOUNTS CLERK/MICRO IF IND.on 97-78-5956Isuvzngve Ql (U) NegativeNormalNEGATIVETrumbull Regional Medical CenterComment on above:Performed By: #### RF #### [facility] [address] [place] [address] Dr. Andre HaynesClarity (U)CLEARNormalCLEARTrumbull Regional Medical CenterComment on above: Performed By: #### RF #### [facility] [address] [place] [address] Dr. Andre Kendall (U)YELLOWNormalYELLOWTrumbull Regional Medical CenterComment on above: Performed By: #### RF #### [facility] [address] [place] [address] Dr. Andre HaynesGlucose Ql (U)NegativeNormalNEGATIVETrumbull Regional Medical CenterComment on above:Performed By: #### RF #### [facility] [address] [place] [address] Dr. Andre HaynesHemoglobin Ql (U)NegativeNormalNEGMercy Health St. [facility] Hospital on above:Performed By: #### RF #### [facility] [address] [place] [address] Dr. Andre HaynesKetones Ql (U)NegativeNormalNEGATIVETrumbull Regional Medical CenterComment on above:Performed By: #### RF #### [facility] [address] [place] [address] Dr. Andre HaynesLEUKOCYTESNegativeNormalNEGATIVETrumbull Regional Medical CenterComhawthorn center on above:Performed By: #### RF #### [facility] [address] [place] [address] Dr. Andre HaynesNitrite Ql (U)NegativeNormalNEGATIVETrumbull Regional Medical CenterComment on above:Performed By: #### RF #### [facility] [address] [place] [address] Dr. Andre HaynespH (U)6.0 [pH]Normal5-9The [facility] HospitalComment on above: Performed By: #### RF #### [facility] [address] [address] [address] Andre Perez GRAVITY1.239Qkavcg0.005-<=1.025The [facility] HospitalComment on above:Performed By: #### RF #### [facility] [address] [address] [address] Andre Mann PROTEINNegativeNormalNEGATIVE/ TRACEThe [facility] Comment on above:Performed By: #### RF #### [facility] [address] [address] [address] Andre Jacobs MICRO INDMICROSCOPIC ALREADY ORDEREDNoHolzer HospitalComment on above:Performed By: #### RF #### [facility] [address] [place] [address] Dr. Andre Clarosbilinogen Qn (U)0.2 {Rafal'U}/dLNormal0.2 - 1.0The [facility] HospitalComment on above:Performed By: #### RF #### [facility] [address] [address] [address] Andre HaynesURIC ACID SERUMon 73-82-5889Eeihr [Mass/Vol]3.9 mg/dLNormal 2.6-6.0The [facility] HospitalComment on above:Performed By: #### RF #### [facility] [address] [place] [address] Dr. Andre Alejo MICROSCOPIC ONLYon 94-87-1194MPQVHFJLMGXE SEENNormalNONE SEENTrumbull Regional Medical CenterComment on above:Performed By: #### RF #### [facility] [address] [address] [address] Andre Sandovalctashley identified Cx Nom (U)NOT INDICATEDNoHolzer HospitalComment on above:Performed By: #### RF #### [facility] [address] [place] [address] Dr. Andre HaynesCASTNONE SEENNormalNONE SEENThe Philip HospitalComment on above:Performed By: #### RF #### [facility] [address] [address] [address] Andre HaynesCrystals LM Nom (Urine sed)NONE SEENNormalNONE SEENThe [facility] HospitalComhawthorn center on above:Performed By: #### RF #### [facility] [address] [address] [address] Andre Laruentthelial cells LM Ql (Urine sed)FEWAbnormalNONE SEEN /RAREThe [facility] HospitalComhawthorn center on above:Performed By: #### RF #### [facility] [address] [place] [address] Dr. Andre HaynesMUCOUSNONE SEENNormalNONE SEENTrumbull Regional Medical CenterComhawthorn center on above:Performed By: #### RF #### [facility] [address] [place] [address] Dr. Andre HaynesIwxwpLLC9-6Mrnbhr1-1[facility] on above:Performed By: #### RF #### [facility] [address] [place] [address] Dr. nAdre HaynesWBCNONE SEENNormalNONE SEENSelect Medical Specialty Hospital [facility] [place] on above: Performed By: #### RF #### [facility] [address] [place] [address] Dr. Andre Metz URINE PROFILEon 08-17-8851Vezahgwaa Ql (U)NegativeNormal NEGATIVETrumbull Regional Medical CenterComhawthorn center on above:Performed By: #### ERUR #### [facility] [address] [place] [address] Dr. Andre Flannery (U)CLEARNormalCLEARThe [facility] HospitalComhawthorn center on above: Performed By: #### ERUR #### [facility] [address] [place] [address] Dr. Andre Kendall (U)LT. YELLOWNormalYELLOWTrumbull Regional Medical CenterComhawthorn center on above:Performed By: #### ERUR #### [facility] [address] [place] [address] Dr. Andre NolenAHDA micrscopic examination will be performed if indicated. NormalTrumbull Regional Medical CenterComment on above:Performed By: #### ERUR #### [facility] [address] [place] [address] Dr. Andre HaynesGlucose Ql (U)NegativeNormalNEGATIVETrumbull Regional Medical CenterComment on above:Performed By: #### ERUR #### [facility] [address] [place] [address] Dr. Andre HaynesHemoglobin Ql (U)NegativeNormalNEGATIVETrumbull Regional Medical Center Comment on above:Performed By: #### ERUR #### [facility] [address] [place] [address] Dr. Andre HaynesKetones Ql (U)NegativeNormalNEGATIVETrumbull Regional Medical CenterComment on above:Performed By: #### ERUR #### [facility] [address] [place] [address] Dr. Andre HaynesLEUKOCYTESNegativeNormalNEGATIVETrumbull Regional Medical CenterComment on above:Performed By: #### ERUR #### [facility] [address] [place] [address] Dr. Andre HaynesNitrite Ql (U)NegativeNormalNEGATIVETrumbull Regional Medical CenterComment on above:Performed By: #### ERUR #### [facility] [address] [place] [address] Dr. Andre HaynespH (U)6.0 [pH]Normal5-9Tr[facility]ull Regional Medical CenterComment on above: Performed By: #### ERUR #### [facility] [address] [place] [address] Dr. Andre HaynesSPEC GRAVITY<=1.629Hygwjfao4.005-<=1.025[facility] Comment on above:Performed By: #### ERUR #### [facility] [address] [place] [address] Dr. Andre Mann PROTEINNegativeNormalNEGATIVE/ TRACETrumbull Regional Medical Center Comment on above:Performed By: #### ERUR #### [facility] [address] [place] [address] Dr. Andre Jacobs MICRO INDNOT INDICATEDNoHolzer HospitalComment on above:Performed By: #### ERUR #### [facility] [address] [place] [address] Dr. Andre Khalil Qn (U)0.2 {Rafal'U}/dLNormal0.2 - 1.0Tr[facility]ull Regional Medical CenterComment on above:Performed By: #### ERUR #### [facility] [address] [place] [address] Dr. Andre HaynesXR LSPINE MIN 4 VIEWSon [id number] LSPINE MIN 4 VIEWS EXAMINATION: XR LSPINE [...] Electronically authenticated by: TESS BANGURA Date: 2021-11-19 07:38[facility] HospitalOUTSIDE CONSULT MSKon [id number] CONSULT [facility] Department of Radiology [address] [place] [id number] Patient Name: ROSELIA LO : 1980 Sex: F Age: Race: White Pt. Location: [facility] Patient Status: Ordered Date: 02/05/2021 3:35:00 PM Completed Date: 02/05/2021 03:51 PM Requesting Provider: REZA TUCKER Attending Provider: Report Copy To: Signs & Symptoms: pt has persistent rt sided pectoralis pain and weakness. Assess pectoralis tendon for injury and/or tear History: Mri of rt shoulder from [facility] dated 11/05/20. Over read requested by Dr Tucker Comments: Exam: OUTSIDE CONSULT MSK OUTSIDE CONSULT MSK 02/05/2021 3:51 PM OUTSIDE STUDY: TECHNIQUE: Outside images of the right shoulder obtained from [facility] dated November 05, 2020. Image review [...] interpretation. Electronically signed: Jonathan Huerta. Transcribed by: [email or web address], User Resident: JONATHAN HUERTA Electronically Signed by: JONATHAN HUERTA @ 02/13/2021 12:32 PM I personally read this/these film(s) with this residentNormalThe [facility] of [facility] Vital Signs Date TimeVital SignValuePerforming UjaorauskYliahevx77-18-9684 13:53-0400Body pupdhr414.02 cmLisa Aichholz LAND CHECKER-C Work Phone: [phone]10-09-2025 13:53-0400 Body mass index (BMI) [Ratio]34.9 kg/m2Lisa Aichholz LAND CHECKER-C Work Phone: [phone]10-09-2025 13:53-0400 Body nvmkepjvlbc50.3 [degF]Ainsley Aichholz LAND CHECKER-C Work Phone: 1(469)[address] [place], [place] [address]10-09-2025 13:53-0400 Body eooisz93.58 kgLisa Aichholz LAND CHECKER-C Work Phone: 1(739)[address]10-09-2025 13:53-0400 Diastolic blood tgsflais17 mm[Hg]Ainsley Aichholz LAND CHECKER-C Work Phone: [phone])[address]10-09-2025 13:53-0400 Heart xqsp780 /minLisa Aichholz LAND CHECKER-C Work Phone: 1(331)[address]10-09-2025 13:53-0400 Respiratory rate18 /minLisa Aichholz LAND CHECKER-C Work Phone: 1(359)0-[address] [place], [place] [address]7210-09-2025 13:53-0400 SaO2% (BldA) [Mass fraction]98 %Ainsley Aichholz LAND CHECKER-C Work Phone: 1(584)559-[address] [place], [place] [address]10-09-2025 13:53-0400 Systolic blood jdtgpbin646 mm[Hg]Ainsley Aichholz LAND CHECKER-C Work Phone: 1(836)[address]08-13-2025 09:09-0400 Body mass index (BMI) [Ratio]34.54 kg/m2Lisa Aichholz LAND CHECKER Work Phone: 1(698)341-[address] [place], [place] [address]Xlhczmwkdn36-21-1238 09:09-0400Body temperature 98.71 [degF]Ainsley Maycoholz LAND CHECKER Work Phone: [place] [address]Olzgebksnr16-49-0755 09:09-0400Body gonyjf43.45 kgLisa Georginahholz LAND CHECKER Work Phone: [place] [address]Mxwqesvlmv69-97-1231 09:09-0400Diastolic blood iavaweww70 mm[Hg]Ainsley Georginahholz LAND CHECKER Work Phone: [place] [address]Srlejbxcby66-10-3493 09:09-0400Heart rate82 /min Ainsley Aichholz LAND CHECKER Work Phone: 1(412)885-[address] [place], [place] [address]Edrbllfioc54-23-0697 09:09-0400Respiratory rate18 /minLisa Georginahholz LAND CHECKER Work Phone: [place] [address]Yzdtokcojx21-66-0999 09:09-9280CtW2% (BldA) [Mass fraction]98 %Ainsley Georginahholz LAND CHECKER Work Phone: [place] [address]Snxytyvhda45-10-5117 09:09-0400Systolic blood mcmuljjs484 mm[Hg]Ainsley Georginahholz LAND CHECKER Work Phone: [facility] CenterTnpcmzpfcv93-62-9766 14:48-0400Body mass index (BMI) [Ratio]34.54 kg/m2Lisa Georginahholz LAND CHECKER Work Phone: [facility] CenterEqtevnzwgh32-42-7108 14:48-0400Body temperature 98.49 [degF]Ainsley Georginahholz LAND CHECKER Work Phone: [place] [address]Rgdxcwtbwd60-58-3743 14:48-0400Body .45 kgLisa Georginahholz LAND CHECKER Work Phone: [place] [address]Zojsdnyvqp10-89-2442 14:48-0400Diastolic blood ipnjvlfu70 mm[Hg]Ainsley Aichholz LAND CHECKER Work Phone: [facility] CenterNkjpqhxysz63-24-6910 14:48-0400Heart rate86 /min Ainsley Aichholz LAND CHECKER Work Phone: [facility] CenterEipokpbvww17-37-8760 14:48-0400Respiratory rate18 /minLisa Courtneyz LAND CHECKER Work Phone: [facility] CenterArolylpuiq86-43-4436 14:48-8923VbX5% (BldA) [Mass fraction]96 %Ainsley Sellers LAND CHECKER Work Phone: [facility] CenterVzbleawkbu72-69-3380 14:48-0400Systolic blood otdttkja533 mm[Hg]Ainsley Courtneyz LAND CHECKER Work Phone: [facility] CenterPsugbwewbv56-03-5561 15:22-0400Body mass index (BMI) [Ratio]35.75 kg/m2Lisa Courtneyz LAND CHECKER Work Phone: [facility] CenterDywvlziusq44-88-7041 15:22-0400Body temperature 98.49 [degF]Ainsley Valdezz LAND CHECKER Work Phone: [facility] CenterKvpnslyakn51-70-6904 15:22-0400Body lxgspe03.54 kgLisa Verito LAND CHECKER Work Phone: [facility] CenterTeysjjwwrf16-81-9836 15:22-0400Diastolic blood zawqlesq70 mm[Hg]Ainsley Sellers LAND CHECKER Work Phone: [facility] CenterOfvgxvxzhk76-63-0352 15:22-0400Heart rate85 /min Ainsley Verito LAND CHECKER Work Phone: [facility] CenterKbyvztlrvj88-54-1528 15:22-0400Respiratory rate18 /minLisa Courtneyz LAND CHECKER Work Phone: [facility] CenterTrcigvxopd25-14-7978 15:22-3406YdG5% (BldA) [Mass fraction]96 %Ainsley Courtneyz LAND CHECKER Work Phone: [facility] CenterZegxdicbzm26-82-0761 15:22-0400Systolic blood ezodbtcn518 mm[Hg]Ainsely Courtneyz LAND CHECKER Work Phone: [facility] CenterMhjgvnsziu76-99-7032 08:56-0400Body mass index (BMI) [Ratio]35.46 kg/m2Lisa Georginahholz LAND CHECKER Work Phone: 1(584)5-[address] [place], [place] [address]Timumoysgo40-82-5135 08:56-0400Body temperature 98.1 [degF]Ainsley Georginahholz LAND CHECKER Work Phone: 1(456)5-[address] [place], [place] [address]Vqotlhvkof52-39-1132 08:56-0400Body eqrxcx17.81 kgLisa Aichholz LAND CHECKER Work Phone: 1(688)[address]05-13-2025 08:56-0400Diastolic blood vfciawgq52 mm[Hg]Ainsley Aichholz LAND CHECKER Work Phone: 1(110)[address]05-13-2025 08:56-0400Heart rate96 /min Ainsley Georginahholz LAND CHECKER Work Phone: 1(302)[address] [place], [place] [address]05-13-2025 08:56-0400Respiratory rate18 /minLisa Georginahholz LAND CHECKER Work Phone: 1(536)0-[address] [place], [place] [address]Noxkalwjoy70-83-7172 08:56-5753VdR5% (BldA) [Mass fraction]98 %Ainsley Aichholz LAND CHECKER Work Phone: 1(003)6-[address] [place], [place] [address]Qhrgjzskfp28-40-0566 08:56-0400Systolic blood qijiirfi701 mm[Hg]Ainsley Georginahholz LAND CHECKER Work Phone: 1(973)[address]03-14-2025 13:06-0400Body kjnvaf337.02 cmLisa Aichholz Work Phone: 1(958)051-[address] [place], [place] [address]203-14-2025 13:06-0400 Body mass index (BMI) [Ratio]33.3 kg/m2Lisa Aichholz Work Phone: 1(628)[address]03-14-2025 13:06-0400 Body dphlchjxpva51.9 [degF]Ainsley Georginahholz Work Phone: 1(034)[address]03-14-2025 13:06-0400 Body vyirwe97.27 kgLisa Aichholz Work Phone: [facility]03-14-2025 13:06-0400 Diastolic blood ajldfhkp78 mm[Hg]Ainsley Aichholz Work Phone: 1(263)873-[facility]03-14-2025 13:06-0400 Heart vekq695 /minLisa Aichholz Work Phone: 1(310)574-[address] [place], [place] [address]203-14-2025 13:06-0400 Respiratory rate18 /minLisa Aichholz Work Phone: 1(024)369-[address] [place], [place] [address]203-14-2025 13:06-0400 SaO2% (BldA) [Mass fraction]99 %Ainsley Aichholz Work Phone: 1(188)818-[facility]03-14-2025 13:06-0400 Systolic blood ozrlbjav138 mm[Hg]Ainsley Aichholz Work Phone: 1(377)[address]02-19-2025 13:08-0500 Diastolic blood gqwpohdb78 mm[Hg]Ainsley Aichholz Work Phone: 1(872)398-[address] [place], [place] 5657202-19-2025 13:08-0500 Heart rate70 /minLisa Aichholz Work Phone: 1(510)231-[address] [place], [place] 5657202-19-2025 13:08-0500 Respiratory rate16 /minLisa Aichholz Work Phone: 1(654)139-[address] [place], [place] 5657202-19-2025 13:08-0500 SaO2% (BldA) [Mass fraction]97 %Ainsley Aichholz Work Phone: 1(673)205-[address] [place], [place] 5657202-19-2025 13:08-0500 Systolic blood nzpotsgr485 mm[Hg]Ainsley Aichholz Work Phone: 1(152)[address]02-19-2025 11:12-0500 Body .02 cmLisa Aichholz Work Phone: 1(429)930-[address] [place], [place] [address]657202-19-2025 11:12-0500 Body .18 kgLisa Georginahholz Work Phone: [facility]01-16-2025 09:03-0500 Body umevoj739 cmLisa Courtneyz LAND CHECKER Work Phone: 1(878)328-[address] [place], [place] [address]Tkmnaanbmj81-01-8102 09:03-0500Body mass index (BMI) [Ratio]34.76 kg/m2Lisa Georginahholz LAND CHECKER Work Phone: 1(891)[facility] [place], [place] [address]Bzizlkgckl35-25-9597 09:03-0500Body temperature 98.8 [degF]Ainsley Georginahholz LAND CHECKER Work Phone: 1(710)[facility] [place], [place] [address]Azqaleandq84-48-4336 09:03-0500Body ifglhz16 kg Ainsley Maycoholz LAND CHECKER Work Phone: 1(785)3-[address] [place], [place] [address]Hludztfchj26-22-9469 09:03-0500Diastolic blood zizosyhf42 mm[Hg]Ainsley Maycoholz LAND CHECKER Work Phone: 1(258)3-[address] [place], [place] [address]Tevmqvsdry47-99-8225 09:03-0500Heart rate91 /min Ainsley Georginahholz LAND CHECKER Work Phone: 1(916)[facility] [place], [place] [address]Iriojymbzh08-75-6862 09:03-0500Respiratory rate20 /minLisa Georginahholz LAND CHECKER Work Phone: 1(689)0-[address] [place], [place] [address]Mfahajywos64-24-3744 09:03-3048IoN1% (BldA) [Mass fraction]97 %Ainsley Maycoholz LAND CHECKER Work Phone: 1(232)0-[address] [place], [place] [address]Cololbusqg02-81-8833 09:03-0500Systolic blood ixfwuopo443 mm[Hg]Ainsley Aichholz LAND CHECKER Work Phone: 1(668)[address] [place], [place] [address]Hurzlwppep19-61-3945 13:05-0500Body mass index (BMI) [Ratio]33.76 kg/m2Lisa Aichholz LAND CHECKER Work Phone: [facility] CenterYqpwmrsyaz67-52-6064 13:05-0500Body temperature 98.49 [degF]Ainsley Georginahholz LAND CHECKER Work Phone: [facility] CenterUnfaxnubkj19-88-6328 13:05-0500Body xtyweu47.46 kgLisa Ericksonhholz LAND CHECKER Work Phone: [facility] CenterFjyuonevdt13-24-6321 13:05-0500Diastolic blood vfnkfajt37 mm[Hg]Ainsley Maycoholz LAND CHECKER Work Phone: [facility] CenterJvqzohoopi82-11-3449 13:05-0500Heart mdmz965 /min Ainsley Aichholz LAND CHECKER Work Phone: [facility] CenterPgnepsnopc68-41-7618 13:05-0500Respiratory rate18 /minLisa Aichholz LAND CHECKER Work Phone: [facility] CenterOzddfkafbv60-58-4582 13:05-4423VqP9% (BldA) [Mass fraction]97 %Ainsley Georginahholz LAND CHECKER Work Phone: [facility] CenterPhvjyzjijx62-51-8465 13:05-0500Systolic blood szmobqgf338 mm[Hg]Ainsley Maycoholz LAND CHECKER Work Phone: [facility] CenterRjzvanikoh43-45-6108 17:53-0400Body skyror691 cm Ainsley Maycoholz LAND CHECKER Work Phone: [facility] CenterQctxsadvxv44-87-4046 17:53-0400Body mass index (BMI) [Ratio]36.07 kg/m2Lisa Georginahholz LAND CHECKER Work Phone: [facility] CenterWufjuzbrbe13-51-3357 17:53-0400Body temperature 98.71 [degF]Ainsley Maycoholz LAND CHECKER Work Phone: [facility] CenterNxavfbotio55-62-0637 17:53-0400Body .35 kgLisa Georginahholz LAND CHECKER Work Phone: [facility] CenterXnbnuviyux19-21-3001 17:53-0400Heart rate89 /min Ainsley Aichholz LAND CHECKER Work Phone: [facility] CenterCqgpkyryyq22-68-9884 17:53-0400Respiratory rate19 /minLisa Aichholz LAND CHECKER Work Phone: [facility] CenterZuymygjpzt81-49-3894 17:53-7397QrY4% (BldA) [Mass fraction]97 %Ainsleyjoaquina Maoholz LAND CHECKER Work Phone: [facility] CenterScejrrlrik95-07-9990 15:58-0400Body cm Ainsley Maycoholz LAND CHECKER Work Phone: [facility] CenterAhsdxbsphh89-00-5782 15:58-0400Body mass index (BMI) [Ratio]36.07 kg/m2Lisa Maycoholz LAND CHECKER Work Phone: [facility] CenterLcbveauqol14-89-9865 15:58-0400Body temperature 98.1 [degF]Ainsley Maycoholz LAND CHECKER Work Phone: [facility] CenterAmvfjvglfi13-06-0075 15:58-0400Body qvvwoq00.35 kgKorisa Maycoholz LAND CHECKER Work Phone: [phone] CenterXihktytgpo74-58-7319 15:58-0400Diastolic blood lwfoydtg33 mm[Hg]Ainsley Maycoholz LAND CHECKER Work Phone: [facility] CenterChqelviqjb46-53-9925 15:58-0400Heart ujrp474 /min Ainsley Maycoholz LAND CHECKER Work Phone: [facility] CenterOupdgsajps37-36-1889 15:58-0400Respiratory rate18 /minLisa Maycoholz LAND CHECKER Work Phone: [facility] CenterYbnrkamqdp93-43-5143 15:58-3096IlV4% (BldA) [Mass fraction]98 %Ainsley Maycoholz LAND CHECKER Work Phone: [facility] CenterNdzvicrwsk24-08-2175 15:58-0400Systolic blood uucbcvxm538 mm[Hg]Ainsley Georginahholz LAND CHECKER Work Phone: [facility] CenterAjgstrznvt67-23-5858 14:00-0400Diastolic blood wjoyoolw40 mm[Hg]Ainsley Georginahholz Work Phone: [facility]07-29-2024 14:00-0400 Heart rate89 /minLisa Aichholz Work Phone: [facility]07-29-2024 14:00-0400 Respiratory rate16 /minLisa Aichholz Work Phone: [facility]07-29-2024 14:00-0400 SaO2% (BldA) [Mass fraction]95 %Ainsley Georginahholz Work Phone: [facility]07-29-2024 14:00-0400 Systolic blood lfyfrjqg286 mm[Hg]Ainsley Georginahholz Work Phone: 1(348)182-[facility]07-29-2024 12:23-0400 Body sgdlckdhrje14.9 [degF]Ainsley Maycoholz Work Phone: 1(687)866-[facility]07-29-2024 11:38-0400 Inhaled oxygen flow rate8 L/minLisa Aichholz Work Phone: [facility]07-29-2024 09:07-0400 Body oinhbs128.02 cmLisa Maycoholz Work Phone: [facility]07-29-2024 09:07-0400 Body mass index (BMI) [Ratio]34.7 kg/m2Lisa Aichholz Work Phone: [facility]07-29-2024 09:07-0400 Body lqirgs67.9 kgLisa Aichholz Work Phone: [facility]06-06-2024 11:08-0400 Body .02 cmMer[facility]06-06-2024 11:08-0400Body mass index (BMI) [Ratio]34 kg/f2UqcqwuhkeMercy Health06-06-2024 11:08-0400Body ysnnvo44.08 kgMer[facility] Health04-26-2024 09:23-0400Body fiwhnl766.02 cmMer[facility] Health04-26-2024 09:23-0400Body mass index (BMI) [Ratio]34.7 kg/j2FkzwfvtpcMercy Health04-26-2024 09:23-0400Body kgMercy Health 01-01-2024 14:16-0500Body .02 cmMer[facility] 01-01-2024 14:16-0500Body mass index (BMI) [Ratio]31.5 kg/r7CjygoimyvMercy Health03-03-2024 14:16-0500Body jevhdxefgxn68.3 [degF][facility]03-03-2024 14:16-0500Body vyjcvv78.73 kgMer[facility] Health03-03-2024 14:16-0500Heart rate99 /[facility]03-03-2024 14:16-0500Respiratory rate18 /[facility]03-03-2024 14:16-1004LsH4% (BldA) [Mass fraction]98 %[facility]02-24-2023 09:25-0500Body bhblep071.02 cmSfigueroa Shankar Other [employer] Other 02-24-2023 09:25-0500Body mass index (BMI) [Ratio] 29.58 kg/g6HnmhxeraaAicha Shankar Other [employer] Other 02-24-2023 09:25-0500Body ulaphhywgmq95.8 [degF] Aicha Shankar Other [employer] Other 02-24-2023 09:25-0500Body .75 kgStclayshirlene Shankar Other [employer] Other 02-24-2023 09:25-0500Respiratory rate18 /minSfigueroa Shankar Other [employer] Other 02-24-2023 09:25-7391PrP8% (BldA) [Mass fraction]95 % Aicha Shankar Other [employer] Other 08-02-2022 18:20-0400Body obeocf652.02 cmSfigueroa Shankar Other [employer] Other 08-02-2022 18:20-0400Body mass index (BMI) [Ratio] 27.45 kg/v6Hwzwihsegsean Shankar Other [employer] Other 08-02-2022 18:20-0400Body wmjezxvwwoj66.5 [degF] Aicha Shankar Other [employer] Other 08-02-2022 18:20-0400Body .31 kgStsean Shankar Other [employer] Other 08-02-2022 18:20-0400Respiratory rate18 /minSfigueroa Shankar Other [facility] [employer] Other 08-02-2022 18:20-4253MfQ0% (BldA) [Mass fraction]98 % Aicha Shankar Other [employer] Other Encounters Encounter DateEncounter [facility] ProviderFacilityStart: 08-08-2025 End: 79-09-8610Cpkdmrie ReferredAinsley HALE-[facility] [place] Work Phone: Start: 08-08-2025 End: 09-92-9665wfhsgptiomCbocLucy Sellers NP-C Work Phone: [facility] Work Phone: Start: 08-08-2025 End: 33-53-3625Mblywfw encounter procedureAinsley Sellers LAND CHECKER-C-[facility] [employer] Work Phone: Start: 06-12-2025 End: 20-59-4169Csqltv flowsheetAinsley Sellers LAND CHECKER Work Phone: [facility] CWM FMStart: 06-12-2025 End: 91-01-0158Wwddjy flowsheetAinsley Sellers LAND CHECKER Work Phone: [facility] FMStart: 06-12-2025 End: 79-50-4230Pvojdz outpatient visit 15 minutesAinsley Sellers LAND CHECKER Work Phone: [facility] CWM FMComment on above:Sciatica of left side (Primary Dx); Mixed hyperlipidemia ; Tobacco dependence; Anxiety; Current moderate episode of major depressive disorder without prior episode (HCC); Metabolic syndrome; Obesity (BMI 30-39.9)Start: 06-12-2025 End: 96-69-4426hiecexjmpmEQSV AICHHOLZNot AvailableStart: 05-28-2025 End: 44-15-6123Zngzgi outpatient visit 25 minutesAinsley Sellers LAND CHECKER Work Phone: [facility] CWM FMComment on above:Sciatica of left side (Primary Dx); Obesity (BMI 30-39.9); Tobacco dependence; Anxiety; Mixed hyperlipidemia ; Metabolic syndromeStart: 05-28-2025 End: 68-00-4579mzasxclcraOATM AICHHOLZNot AvailableStart: 05-28-2025 End: 56-65-6098Bwxxmu flowsheetAinsley Sellers LAND CHECKER Work Phone: [facility] FMStart: 05-28-2025 End: 09-08-8448Gfvtqq flowsheetAinsley Sellers LAND CHECKER Work Phone: [facility] FMStart: 05-16-2025 End: 26-96-7042QnachvSiqt Aichholz LAND CHECKER Work Phone: [facility] CWM FMComment on above:Obesity (BMI 30-39.9) Start: 05-11-2025 End: 42-86-1175XdrwwsBrfs Maycoholz LAND CHECKER Work Phone: [facility] CWM FMComment on above:AnxietyStart: 05-07-2025 End: 45-46-2977Yboxzfmtq Result EncounterLisa Aichholz LAND CHECKER Work Phone: noms External Department UnsolicitedStart: 05-07-2025 End: 35-89-4875Icxhdnazi Result EncounterLisa Aichholz LAND CHECKER Work Phone: noms External Department UnsolicitedStart: 05-07-2025 End: 21-27-9777Pijsxxle Result EncounterLisa Aichholz LAND CHECKER Work Phone: noms External Department UnsolicitedStart: 05-07-2025 End: 38-37-8505Ptiqzbys ReferredLi J Verito LAND CHECKER-C-[facility] Start: 05-07-2025 End: 41-92-3223Elggpt OnlyLisa Georginahholz LAND CHECKER Work Phone: n[facility] CWM FMComment on above:Microscopic hematuria (Primary Dx)Start: 05-01-2025 End: 03-31-7604Pjiknwkgf Result EncounterLisa Aichholz LAND CHECKER Work Phone: noms External Department UnsolicitedStart: 05-01-2025 End: 43-23-5091Rvavaipur Result EncounterLisa Aichholz LAND CHECKER Work Phone: noms External Department UnsolicitedStart: 04-26-2025 End: 41-99-2753Xqporp OnlyLisa Georginahholz LAND CHECKER Work Phone: n[facility] CWM FMComment on above:Microscopic hematuria (Primary Dx)Start: 04-24-2025 End: 83-13-7676Cixhqetnf Result EncounterLisa Aichholz LAND CHECKER Work Phone: noms External Department UnsolicitedStart: 04-24-2025 End: 86-31-0889Sktxyctly Result EncounterLisa Maycoholz LAND CHECKER Work Phone: noms External Department UnsolicitedStart: 04-23-2025 End: 03-48-2309Dmwptl outpatient visit 25 minutesLisa Georginahholz LAND CHECKER Work Phone: n[facility] CWM FMComment on above:Anxiety (Primary Dx); Stage 3a chronic kidney disease (CKD) ([facility]-HCC); Obesity (BMI 30-39.9); Current moderate episode of major depressive disorder without prior episode ([facility]); Tobacco dependence; Microscopic hematuria; Elevated glucoseStart: 04-23-2025 End: 67-93-0278xhzvhvuulpXYMM GEORGINAHHOLZNot AvailableStart: 04-23-2025 End: 96-24-6134Ficgfs flowsheetLisa Aichholz LAND CHECKER Work Phone: [facility] CWM FMStart: 04-23-2025 End: 17-75-5558Qowwwo flowsheetLisa Aichholz LAND CHECKER Work Phone: [facility] CWM FMStart: 04-08-2025 End: 32-32-4481SxwxknBerw Georginahholz LAND CHECKER Work Phone: [facility] CWM FMComment on above:Primary insomniaStart: 03-15-2025 End: 85-14-8138Wkbmkmzhd department patient visitSA Cb [facility]ERSCinc[facility] Centerca [facility] Centertart: 03-12-2025 End: 41-47-2944Xwqevd flowsheetLisa Aichholz LAND CHECKER Work Phone: [facility] CWM FMStart: 03-12-2025 End: 78-31-3313Umuanb flowsheetLisa Aichholz LAND CHECKER Work Phone: [facility] CWM FMStart: 03-12-2025 End: 60-45-6394Qyrnod outpatient visit 15 minutesLisa Georginahholz LAND CHECKER Work Phone: NOM[facility] CWM FMComment on above:Anxiety (Primary Dx); Obesity (BMI 30-39.9); Cyst of right ovary; Tobacco dependence; Current moderate episode of major depressive disorder without prior episode (HCC) ([facility]/HCC)Start: 03-12-2025 End: 62-66-3237irbrpvsqjuWZHP AICHHOLZNot AvailableStart: 02-12-2025 End: 70-74-4463Sjxtzjsqh Result EncounterLisa Aichholz LAND CHECKER Work Phone: noms External Department UnsolicitedStart: 02-12-2025 End: 59-67-7665Eyldtcgii Result EncounterLisa Aichholz LAND CHECKER Work Phone: noms External Department UnsolicitedStart: 02-11-2025 End: 70-58-8219Fsgfyq OnlyLisa Aichholz LAND CHECKER Work Phone: noms CWM FMComment on above:Left flank pain (Primary Dx)Start: 02-08-2025 End: 25-42-7601Ahyevukja Result EncounterLisa Aichholz LAND CHECKER Work Phone: noms External Department UnsolicitedStart: 02-08-2025 End: 49-40-1997Nwpmaltot Result EncounterLisa Aichholz LAND CHECKER Work Phone: noms External Department UnsolicitedStart: 02-07-2025 End: 23-32-9863smgiaymfxiTHPQA L GEMMAHProMedcong [facility] HospitalStart: 01-11-2025 End: 27-51-3549zrdrisyxbaMdza J Aichholz Work Phone: [facility] Work Phone: Start: 01-11-2025 End: 97-30-1274Mxkryov encounter procedureLisa Aichholz Work Phone: [facility] Work Phone: Start: 65-23-2003Ryd-patient / Non-visitLisa Aichholz Work Phone: [facility] Work Phone: Start: 80-36-9971Wcx-patient / Non-visitAinsley Georginaeddiemeño Work Phone: [facility] Work Phone: Start: 12-19-2024 End: 50-90-8857Affgevvrc to same day surgery [place] Georginaeddiemeño Work Phone: [facility] Work Phone: Start: 12-19-2024 End: 77-92-1782vlfdjjfbcvPjtg Cb Ericksoneddiemeño Work Phone: [facility] Work Phone: Start: 12-11-2024 End: 71-78-5061SztxcnLrsy Aichholz L[employer] CHECKER Work Phone: noms CWM FMComment on above:Generalized abdominal pain (Primary Dx)Start: 12-10-2024 End: 45-46-7261yggvgjcnjrJWAVLNew [facility]ulatory PPGStart: 11-23-2024 End: 65-55-7164xknhzkwswhSEXWTFCDBNYU [facility] Start: 68-72-6709Ijqsdmmip for gynecological examination (general) (routine) without abnormal findingsThe [facility] Start: 11-23-2024 End: 15-56-2378dlmrlripwsETUMYMLRNSharp [facility]: 95-35-1442Qzwvcprym for gynecological examination (general) (routine) without abnormal findingsOhioHealth Berger Hospitaltart: 11-15-2024 End: 28-50-0220Ikoucl outpatient visit 25 minutesLisa Sellers LAND CHECKER Work Phone: noms CWM FMComment on above:Anxiety (Primary Dx); Obesity (BMI 30-39.9); Diverticulitis; Tobacco user; Current moderate episode of major depressive disorder without prior episode (HCC) ([facility]/HCC)Start: 11-15-2024 End: 02-72-1698djkjfmkcmrWZXD AICHHOLZNot AvailableStart: 11-13-2024 End: 95-24-6453XlnfskBmaz Aichholz LAND CHECKER Work Phone: noms CWM FMComment on above:AnxietyStart: 11-01-2024 End: 74-54-7759iynoavzttyFJFU AICHHOLZNot AvailableStart: 11-01-2024 End: 47-28-6328Qyfxhx outpatient new 45 minutesLisa Aichholz LAND CHECKER Work Phone: noms CWM FMComment on above:Diverticulitis (Primary Dx); Tobacco user; Obesity (BMI 30-39.9); Cyst of right ovary; Encounter for screening mammogram for malignant neoplasm of breastStart: 10-23-2024 End: 83-44-4679Kseayorqm encounterLisa Aichholz LAND CHECKER Work Phone: noms CWM FMStart: 07-25-2024 End: 41-11-0919Zsjqec outpatient visit 15 minutesLisa Georginahholz LAND CHECKER Work Phone: noms CWM FMComment on above:Anxiety (Primary Dx); Obesity (BMI 30-39.9); Rib pain on right side; Acute urinary retentionStart: 07-25-2024 End: 41-66-9187hgxhyhmpjfGGVS AICHHOLZNot AvailableStart: 07-25-2024 End: 00-12-2501Bjsaaw flowsheetLisa Aichholz LAND CHECKER Work Phone: noms CWM FMStart: 07-25-2024 End: 20-33-5929Brqmqu flowsheetLisa Aichholz LAND CHECKER Work Phone: noms CWM FMStart: 07-25-2024 End: 31-48-4823Ifhmpkles Result EncounterGeneric External Data ProviderNOMS External Department UnsolicitedStart: 07-17-2024 End: 39-09-3596TekjrxJehq Aichholliu LAND CHECKER Work Phone: noms CWM FMComment on above:AnxietyStart: 07-16-2024 End: 98-41-1370BcphckBbfa Maycoholz LAND CHECKER Work Phone: noms CWM FMComment on above:Rib pain on right side; AnxietyStart: 06-26-2024 End: 67-83-6787Ruiudo outpatient visit 15 minutesLisa Sellers LAND CHECKER Work Phone: noms CWM FMComment on above:Rib pain on right side (Primary Dx); Obesity (BMI 30-39.9)Start: 06-26-2024 End: 92-92-7492junvuvhsxfRJQW GERMAINEot AvailableStart: 06-26-2024 End: 65-34-6295Mucxfe flowsheetLisa Sellers LAND CHECKER Work Phone: noms CWM FMStart: 06-26-2024 End: 24-16-1831Rbvadn flowsheetLisa Ericksoneddiemeño LAND CHECKER Work Phone: noms CWM FMStart: 05-28-2024 End: 40-75-6414Wqqjhlval to same day surgery centerAinsley Sellers Work Phone: [facility] CampusStart: 05-28-2024 End: 53-68-1289gxaliobnuwUdgx Cb Sellers Work Phone: [facility] Work Phone: Start: 04-16-2024 End: 43-28-3581yxwnqyfdyoMutx J Georginahholliu Work Phone: [facility] Work Phone: Start: 04-16-2024 End: 21-52-2718Zrrbyzo encounter procedureLisa Sellers Work Phone: [facility] Jr[facility]-Gml-Exwmmhrl Testing Work Phone: Start: 04-05-2024 End: 76-92-6100gwtyxkykniQzgmscngsOhioHealth [facility]ering[facility] Work Phone: Start: 04-05-2024 End: 12-04-5102Ksxfapm encounter procedureCarepartners [facility] Work Phone: start: 03-13-2024 End: 33-46-2554uhesrgacxyYOLTTexas Health [facility] PPGStart: 02-24-2024 End: 48-92-3889xmzbxmfwbgPuvfwhmvoOhioHealth Pickerington [facility] Hospital Work Phone: Start: 02-24-2024 End: 21-16-7163Pqurqvn encounter procedureCarepartners Rehabilitation [facility] Work Phone: start: 01-01-2024 End: 95-99-1105Norfrbr encounter procedureCarepartners Rehabilitation [facility] [employer] Work Phone: Start: 12-22-2023 End: 45-44-7128jhwwexqovfRJOATexas Health [facility] Ambulatory PPGStart: 12-24-2022 End: 19-05-9302zcuhfggmpxSgtzgimmm Vonnie Other [employer] Other Start: 50-82-9816Qvscoo outpatient visit 25 minutes Aicha BreaultFPG Urgent Care ClydeStart: 06-01-2022 End: 40-83-9299wqfkzcvqavHsgkgftho Vonnie Other [employer] Other Start: 92-85-4327Qhuqdh outpatient new 30 minutes Aicha BreaultFPG Urgent Care ClydeStart: 03-18-2022 End: 43-54-4584ivdhauvfyhUGQ AINSLEY VERITOFacility:Y9Ntjst: 01-29-2022 End: 66-65-1288tpvzxdznffPLD AINSLEY COURTNEYZFacility:B5Lwyrs: 11-24-2021 End: 15-60-7088hxajwglfrkJBV AINSLEY AICHHOLZFacility:W8Zoevz: 11-18-2021 End: 45-90-5439sinvplvksiGYS AINSLEY AICHHOLZFacility:A7Ljnen: 10-17-2021 End: 45-30-8793hxfcmsvgvqRJ RANDOLPH Mehta SMITHFacility:H1Gnhnv: 01-06-2021 End: 99-59-6046fipdzdcgfqCCZMZWDHR UNKNOWNFacility:RUST Procedures DateProcedureProcedure DetailPerforming ClinicianStart: 88-66-5679Rflubtm bacterial quanttative colony count urineLisa Aichholz LAND CHECKER Work Phone: Start: 07-16-9397VET UA (CLEAN/CATCH) MICROSCOPIC IF INDICATELisa Aichholz LAND CHECKER Work Phone: Start: 06-21-0026EB ABDOMEN MIN 2VLisa Aichholz LAND CHECKER Work Phone: Start: 54-16-2582ROG UA (CLEAN/CATCH) MICROSCOPIC IF INDICATELisa Aichholz LAND CHECKER Work Phone: Start: 35-01-9248Uyppazsrwf glycosylated v3iXpeq Aichholz LAND CHECKER Work Phone: Start: 94-06-8517TB ABDOMEN 1VLisa Aichholz LAND CHECKER Work Phone: Start: 64-28-6052POB BASIC METABOLIC PANELLisa Aichholz LAND CHECKER Work Phone: Start: 31-26-3344Tcmsu X-ray of left handLisa Aichholz Work Phone: Start: 26-98-2488Fuwuv X-ray of left wristLisa Aichholz Work Phone: Start: 36-32-6938OgiyzagbbfkMyms Aichholz Work Phone: Start: 47-83-5038ElopifustcqAtak Aichholz LAND CHECKER Work Phone: Start: 97-57-5344Iwtuevna identified in Urine by CultureGeneric External Data ProviderStart: 32-84-2409Gseintrg of lumbar intervertebral discLisa Verito Work Phone: Start: 95-10-3457Z-ray of lumbar spine, single view Ainsley Verito Work Phone: Start: 76-30-3727KpnvndjfayeBscf Aichholz LAND CHECKER Work Phone: Start: 15-48-3167Lzxytirrhex observation [Identifier] in Cervix by Cyto stainAinsley Sellers LAND CHECKER Work Phone: Plan of Treatment DateCare ActivityDetailAuthorStart: 14-55-6403Kwqggrhkb for malignant neoplasm of cervixNOMS HealthcareStart: 40-03-1231Xtczgodtn for malignant neoplasm of cervixNOMS HealthcareStart: 80-13-3000Svkwwgnuw for malignant neoplasm of breast MammogramNOMS HealthcareStart: 64-55-2404FkqreecgpRegency Hospital Companytart: 07-03-2025 End: 48-24-7782Gfyhpzg encounter icnqragub10/03/2025 11:00 AM EDT Office Visit [facility] CW FM [address] [place] [address] Ainsley Sellers, ALESSIO [address] [place] [address] NOMS CWM FMStart: 35-80-8569Gvoinoalw vaccinationNOMS HealthcareStart: 06-12-2025 End: 91-81-9520Lqptmwj encounter procedureNOMS CWM FMComment on above:Mixed hyperlipidemia (Primary Dx); Tobacco dependence; Sciatica of left side; Anxiety; Current moderate episode of major depressive disorder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 EDT Urine no blood [place] documented in this encounterParkland Health [id number] History of Present illness Narrative* Ainsley Sellers, ALESSIO - 04/23/2025 3:20 PM EDT Images from [...] Size: Adult long) Pulse 85 Temp 98.5 F (Temporal) Resp 18 Wt 201 lb 12.8 oz SpO2 96% BMI 35.75 kg/m Smoking Status Every Day BSA 2.02 m Physical Exam Vitals and nursing note [...] xanax Stage 3a chronic kidney disease (CKD) ([facility]) - Primary Follow labs Relevant Orders Comprehensive [...] of major depressive disorder without prior episode ([facility]) Current meds; zyprexa, fluoxetine, and prn xanax Tobacco dependence The patient has been advised of the risks of continued smoking: stroke, PA, all forms of cancer, lung disease, and [...] of the risks of continued smoking: stroke, PA, all forms of cancer, lung disease, and [...] Problem(s): Stage 3a chronic kidney disease (CKD) ([facility]) Follow labs documented in this encounterParkland Health [id number] Instructions* Patient Instructions* Ainsley Sellers NP - 04/23/2025 3:20 PM EDT Adipex: Notify office with any symptoms of chest pain, dyspnea, heart palpitations, or any anxiety symptoms. F/U in 4 weeks to document weight loss. Increase physical activity as tolerated, and lowercaloric intake to 1600 calories daily if no contraindications documented in this encounterParkland Health [id number] History of Present illness Narrative* Ainsley Sellers NP - 03/12/2025 9:00 AM EDT Images from the original note were not included. ' Roselia Lo is a 44 y.o. female presents with chief complaint of Anxiety HPI: Here for recheck of anxiety and depression, at last appt started on zyprexa and she feels this is helping quite a bit Sleep is good, no SI/HI. No hallucinations Continues with prn xanax, and fluoxetine No side effects meds Wants to continue on current dose of med Saw [facility]: wants to have a hyst, had some labs, is going to have a pelvic US next SUBJECTIVE: MEDICATIONS: Current Outpatient Medications Medication Instructions [...] stool, constipation, diarrhea, nausea and vomiting. Genitourinary: Positive for menstrual problem. Negative for difficulty urinating, dysuria and frequency. [...] in her sister. OBJECTIVE: Visit Vitals BP 108/78 (BP Location: Left arm, Patient Position: Sitting, BP Cuff Size: Large adult) Pulse 96 Temp 98.1 F (Temporal) Resp 18 Wt 200 lb 3.2 oz SpO2 98% BMI 35.46 kg/m Smoking Status Every Day BSA 2.01 m Physical Exam Vitals and nursing note reviewed. Constitutional: General: She is not in acute distress. Appearance: Normal appearance. HENT: Head: Normocephalic and atraumatic. Right Ear: External ear normal. Left Ear: External ear normal. Nose: Nose normal. Mouth/Throat: Mouth: Mucous membranes are moist. Eyes: Extraocular Movements: Extraocular movements intact. Conjunctiva/sclera: Conjunctivae normal. Neck: Vascular: No carotid bruit. Cardiovascular: Rate and Rhythm: Normal rate and [...] ASSESSMENT AND PLAN: Follow up in about 3 months (around 06/12/2025) for Recheck. Problem List Items Addressed This Visit Anxiety Taking fluoxetine, olanzapine and prn xanax PHQ 9=2 CRISTAL 7=6 Relevant Medications FLUoxetine (PROzac) 40 MG capsule OLANZapine (ZyPREXA) 2.5 MG tablet Obesity (BMI 30-39.9) - Primary Discussed with patient their BMI (actual, verses recommended). We have also discussed lifestyle modifications: attempts to perform physical activity as chronic conditions allow, also to monitor dietary intake: increasing protein/fruits/veggies and lowering carb intake (unless contraindicated). Limit sodas, juices, and sugary drinks. Cyst of right ovary Noted on CT scan from 10/23 [facility] ER Was referred to [facility], is going to have pelvic US Current moderate episode of major depressive disorder without prior episode (HCC) (CMS/HCC) Current meds; zyprexa, fluoxetine, and prn xanax PHQ9=2 Relevant Medications FLUoxetine (PROzac) 40 MG capsule OLANZapine (ZyPREXA) 2.5 MG tablet Tobacco dependence The patient has been advised of the risks of continued smoking: stroke, PA, all forms of cancer, lung disease, and . Options for quitting smoking include: cold turkey, hypnosis, acupuncture, nicotine replacement meds(gum, lozenges, and patches), Buproprion, and Varenicline. At this time pt is encouraged to evaluate their goals for wanting to quit smoking, and reach out toprovider when ready to start this process * Ainsley Sellers NP - 03/12/2025 6:11 AM EDTAssociated Problem(s): Current moderate episode of major depressive disorder without prior episode (HCC) (CMS/HCC) Current meds; zyprexa, fluoxetine, and prn xanax PHQ9=2 * Ainsley Sellers NP - 03/12/2025 6:10 AM EDTAssociated Problem(s): Anxiety Taking fluoxetine, olanzapine and prn xanax PHQ 9=2 CRISTAL 7=6 * Ainsley Sellers NP - 03/12/2025 6:09 AM EDTAssociated Problem(s): Tobacco dependence The patient has been advised of the risks of continued smoking: stroke, PA, all forms of cancer, lung disease, and . Options for quitting smoking include: cold turkey, hypnosis, acupuncture, nicotine replacement meds(gum, lozenges, and patches), Buproprion, and Varenicline. At this time pt is encouraged to evaluate their goals for wanting to quit smoking, and reach out toprovider when ready to start this process * Ainsley Sellers NP - 03/12/2025 6:08 AM EDTAssociated Problem(s): Cyst of right ovary Noted on CT scan from 10/23 [facility] ER Was referred to [facility], is going to have pelvic US * Ainsley Sellers NP - 03/12/2025 6:07 AM EDTAssociated Problem(s): Obesity (BMI 30-39.9) Discussed with patient their BMI (actual, verses recommended). We have also discussed lifestyle modifications: attempts to perform physical activity as chronic conditions allow, also to monitor dietary intake: increasing protein/fruits/veggies and lowering carb intake (unless contraindicated). Limit sodas, juices, and sugary drinks. documented in this encounterParkland Health [id number] Instructions* Patient Instructions* Ainsley Sellers NP - 03/12/2025 9:00 AM EDT No changes in med doses documented in this [facility]04-14-2025 History of Present illness Narrative* Ainsley Sellers NP - 02/11/2025 4:51 PM EDTAssociated Problem(s): Left flank pain Order KUB xray documented in this encounterParkland Health [id number] Evaluation note* Diagnosis Onset Date Resolution Status Admit Date Contusion of left wrist acuteMarch 2024 1:00pmFirst degree burn of left wristacuteMarch 2024 1:00pm [facility] Work Phone: [phone] [place] [address] Colonoscopy Procedure Report Signed Patient: Roselia Lo MR #: [id number] : 1980 Acct:[id number] Age/Sex: 44 / F Adm Date: 5 Loc: Room: Type: [facility] Attending Dr: Ángela Bennett MD Copies to: [...] was slowly withdrawnwith the findings as below. [place] bowel prep score was good. Findings: Cecum: [...] MD 12/19/24 1238 Signed By: 12/19/24 1239 [facility]02-19-2025 [place] [address] Gastroenterology H&P Signed Patient: Roselia Lo MR #: [id number] : 1980 Acct:[id number] Age/Sex: 44 / F Adm Date: 5 Loc: Room: Type: [facility] Attending Dr: Ángela Bennett MD Copies to: MD Ainsley Justice NP-Shahram~ Date of Service: 12/19/2024 HISTORY & PHYSICAL: [...] MD 12/19/24 1237 Signed By: 12/19/24 1238 [facility]01-16-2025 History of Present illness Narrative * Ainsley [...] 2 puffs, Every 6 hours PRN Sutab [id number] MG tablet TAKE 12 TABLETS BY MOUTH [...] of the risks of continued smoking: stroke, PA, all forms of cancer, lung disease, and [...] of the risks of continued smoking: stroke, PA, all forms of cancer, lung disease, and [...] juices, and sugary drinks. documented in this [facility]01-16-2025 Instructions* Patient Instructions* Ainsley Sellers NP - [...] office if these occur. documented in this [facility]01-02-2025 History of Present illness Narrative* DANIEL HARTMANN [...] HPI: Here for ER fu, seen in [facility] ER on 10/22/24: Abd pain and [...] of the risks of continued smoking: stroke, PA, all forms of cancer, lung disease, and . Options for quitting smoking include: cold turkey, hypnosis, acupuncture, nicotine replacement meds(gum, lozenges, and patches), Buproprion, and Varenicline. At this time pt is encouraged to evaluate their goals for wanting to quit smoking, and reach out toprovider when ready to start this process Diverticulitis - Primary Recent ER visit to [facility], see CT scan Will treat with [...] ovary Noted on CT scan from 10/23 [facility] ER Will need US and fu with [facility], will refer her back to [facility] Relevant Orders Ambulatory referral to Obstetrics / Gynecology * Ainsley Sellers NP - 11/01/2024 7:07 AM ESTAssociated Problem(s): Encounter for screening mammogram for malignant neoplasm of breast Was ordered 02/2024, pt non compliant with completing this Will re order for 2024, explain importance of getting completed * Ainsley Sellers NP - 11/01/2024 7:06 AM ESTAssociated Problem(s): Cyst of right ovary Noted on CT scan from 10/23 [facility] ER Will need US and fu with [facility], will refer her back to [facility] * Ainsley Sellers NP - 11/01/2024 7:06 AM ESTAssociated Problem(s): Diverticulitis Recent ER visit to [facility], see CT scan Will treat with [...] of the risks of continued smoking: stroke, PA, all forms of cancer, lung disease, and . Options for quitting smoking include: cold turkey, hypnosis, acupuncture, nicotine replacement meds(gum, lozenges, and patches), Buproprion, and Varenicline. At this time pt is encouraged to evaluate their goals for wanting to quit smoking, and reach out toprovider when ready to start this process documented in this [facility]01-02-2025 Instructions* Patient Instructions* Ainsley Sellers NP - 11/01/2024 1:00 PM EST Cipro (twice a day) and metrondiazole (every 8 hours ) for 10 days NO alcohol use while taking Will send to Gastroenterology in [place], they should call you Will send to Gynecology Ainsley Phillips, not sure if pradeep or heladio office documented in this [facility]12-24-2024 Telephone encounter Note* Telephone Encounter - Ainsley Sellers NP - 10/23/2024 6:12 AM EST Please contact pt for an ER fu and schedule [place] [facility] [id number] Miscellaneous Notes* Telephone Encounter - Ainsley Sellers NP - 10/23/2024 6:12 AM EST Please contact pt for an ER fu and schedule [place] documented in this [facility]09-25-2024 History of Present illness Narrative* Ainsley Sellers NP - 07/25/2024 6:28 PM EDTAssociated Problem(s): Acute urinary retention Only a few drops of urine in office: clear, yellow, mod blood, sm leuk, all others normal Will refer to [facility] ER for evaluation: differentials: UTI, KRYS, [...] from the original note were not included. Roselai Lo is a 43 y.o. female presents [...] leuk, all others normal Will refer to [facility] ER for evaluation: differentials: UTI, KRYS, pyleo, urinary retention documented in this encounterParkland Health [id number] History of Present illness Narrative* Ainsley Sellers [...] is very tender to the touch. * Ainsley Sellers, LAND [employer]ER - 06/26/2024 4:00 PM EDT Images from [...] right w chest anteroposterior documented in this encounterParkland Health [id number] Evaluation note* Encounter Date Diagnosis Assessment Notes Treatment Notes Treatment Clinical Notes Dec, Contact with and (kelsey spected) exposure to covid-19 (ICD-10 - Z20.822) Dec,cute non-recurrent pansinusitis (ICD-10 - J01.40)Sinus infections can be triggeredby a secondary infection; [...] of symptoms occur by end of treatment. Dec,Nausea (ICD-10 - R11.0)Nausea can be caused because of symptoms of [...] as decrease in urine, dry mouth, etc [facility] Other 08-02-2022 Evaluation note* Encounter Date Diagnosis Assessment Notes Treatment Notes Treatment Clinical Notes May, Sore throat (ICD-10 - J02.9) May,2COVID-19 (ICD-10 - U07.1)Today you tested positive for the COVID virus. This mean you need to follow all CDC quarantine guidelines found at coronavirus.[place].gov. It is important to rest, increase fluids, and stay at home. Recommend contacting primary care provider and discussing best course of action if you have chronic health conditions. [facility] Other Evaluation noteNo assessment information available [facility] Work Phone: Evaluation note* Diagnosis Onset Date Resolution Status Displacement of lumbar intervertebral di sc with radiculopathy acute [facility] Work Phone: evaluation note* Diagnosis Onset Date Resolution Status Displacement of lumbar intervertebral di sc with radiculopathy acuteDisplacement of lumbar intervertebral disc with radiculopathyacute [facility] Work Phone: Evaluation note* Diagnosis Anxiety Anxiety [...] major depressive disorder without prior episode (HCC) ([facility]/HCC) [facility] [...] major depressive disorder without prior episode (HCC) ([facility]/HCC) Generalized abdominal pain- Primary Abdominal pain, generalized [facility]* [...] depressive disorder without prior episode (HCC) (CMS/HCC) Left flank pain- Primary Abdominal pain, unspecified site [facility]* [...] depressive disorder without prior episode (HCC) (CMS/HCC) Left flank pain- Primary Abdominal pain, unspecified site Anxiety- Primary Anxiety state, unspecified Obesity (BMI 30-39.9) Cyst of right ovary Other and unspecified ovarian cyst Tobacco dependence Tobacco use disorder Current moderate episode of major depressive disorder without prior episode (HCC) (CMS/HCC) [facility]* [...] depressive disorder without prior episode (HCC) (CMS/HCC) Left flank pain- Primary Abdominal pain, unspecified site Anxiety- Primary Anxiety state, unspecified Obesity (BMI 30-39.9) Cyst of right ovary Other and unspecified ovarian cyst Tobacco dependence Tobacco use disorder Current moderate episode of major depressive disorder without prior episode (HCC) (CMS/HCC) Primary insomnia Persistent disorder of initiating or maintaining sleep [facility] [...] major depressive disorder without prior episode (HCC) Left flank pain- Primary Abdominal pain, unspecified site Anxiety- Primary Anxiety state, unspecified Obesity (BMI 30-39.9) Cyst of right ovary Other and unspecified ovarian cyst Tobacco dependence Tobacco use disorder Current moderate episode of major depressive disorder without prior episode (HCC) Anxiety- Primary Anxiety state, unspecified Stage 3a chronic kidney disease (CKD) (CMS-HCC) Obesity (BMI 30-39.9) Current moderate episode of major depressive disorder without prior episode (HCC) Tobacco dependence Tobacco use disorder Microscopic hematuria Elevated glucose Other abnormal glucose [facility]* [...] major depressive disorder without prior episode (HCC) Left flank pain- Primary Abdominal pain, unspecified site Anxiety- Primary Anxiety state, unspecified Obesity (BMI 30-39.9) Cyst of right ovary Other and unspecified ovarian cyst Tobacco dependence Tobacco use disorder Current moderate episode of major depressive disorder without prior episode (HCC) Anxiety- Primary Anxiety state, unspecified Stage 3a chronic kidney disease (CKD) ([facility]) Obesity (BMI 30-39.9) Current moderate episode of major depressive disorder without prior episode (HCC) Tobacco dependence Tobacco use disorder Microscopic hematuria Elevated glucose Other abnormal glucose Microscopic hematuria- Primary [facility] [...] major depressive disorder without prior episode (HCC) Left flank pain- Primary Abdominal pain, unspecified site Anxiety- Primary Anxiety state, unspecified Obesity (BMI 30-39.9) Cyst of right ovary Other and unspecified ovarian cyst Tobacco dependence Tobacco use disorder Current moderate episode of major depressive disorder without prior episode (HCC) Anxiety- Primary Anxiety state, unspecified Stage 3a chronic kidney disease (CKD) ([facility]) Obesity (BMI 30-39.9) Current moderate episode of major depressive disorder without prior episode (HCC) Tobacco dependence Tobacco use disorder Microscopic hematuria Elevated glucose Other abnormal glucose Microscopic hematuria- Primary [facility]* [...] major depressive disorder without prior episode (HCC) Left flank pain- Primary Abdominal pain, unspecified site Anxiety- Primary Anxiety state, unspecified Obesity (BMI 30-39.9) Cyst of right ovary Other and unspecified ovarian cyst Tobacco dependence Tobacco use disorder Current moderate episode of major depressive disorder without prior episode (HCC) Anxiety- Primary Anxiety state, unspecified Stage 3a chronic kidney disease (CKD) ([facility]) Obesity (BMI 30-39.9) Current moderate episode of major depressive disorder without prior episode (HCC) Tobacco dependence Tobacco use disorder Microscopic hematuria Elevated glucose Other abnormal glucose Anxiety Anxiety state, unspecified documented in this [...] major depressive disorder without prior episode (HCC) Left flank pain- Primary Abdominal pain, unspecified site Anxiety- Primary Anxiety state, unspecified Obesity (BMI 30-39.9) Cyst of right ovary Other and unspecified ovarian cyst Tobacco dependence Tobacco use disorder Current moderate episode of major depressive disorder without prior episode (HCC) Anxiety- Primary Anxiety state, unspecified Stage 3a chronic kidney disease (CKD) ([facility]) Obesity (BMI 30-39.9) Current moderate episode of major depressive disorder without prior episode (HCC) Tobacco dependence Tobacco use disorder Microscopic hematuria Elevated glucose Other abnormal glucose Obesity (BMI 30-39.9) documented in this encounter [...] major depressive disorder without prior episode (HCC) Left flank pain- Primary Abdominal pain, unspecified site Anxiety- Primary Anxiety state, unspecified Obesity (BMI 30-39.9) Cyst of right ovary Other and unspecified ovarian cyst Tobacco dependence Tobacco use disorder Current moderate episode of major depressive disorder without prior episode (HCC) Anxiety- Primary Anxiety state, unspecified Stage 3a chronic kidney disease (CKD) ([facility]) Obesity (BMI 30-39.9) Current moderate episode of major depressive disorder without prior episode (HCC) Tobacco dependence Tobacco use disorder Microscopic hematuria Elevated glucose Other abnormal glucose Sciatica of left side- Primary Obesity (BMI 30-39.9) Tobacco dependence Tobacco use disorder Anxiety Anxiety state, unspecified Mixed hyperlipidemia Mixed hyperlipidemia Metabolic syndrome Dysmetabolic Syndrome X documented in this encounter [facility]* [...] major depressive disorder without prior episode (HCC) Left flank pain- Primary Abdominal pain, unspecified site Anxiety- Primary Anxiety state, unspecified Obesity (BMI 30-39.9) Cyst of right ovary Other and unspecified ovarian cyst Tobacco dependence Tobacco use disorder Current moderate episode of major depressive disorder without prior episode (HCC) Anxiety- Primary Anxiety state, unspecified Stage 3a chronic kidney disease (CKD) ([facility]) Obesity (BMI 30-39.9) Current moderate episode of major depressive disorder without prior episode (HCC) Tobacco dependence Tobacco use disorder Microscopic hematuria Elevated glucose Other abnormal glucose Sciatica of left side- Primary Obesity (BMI 30-39.9) Tobacco dependence Tobacco use disorder Anxiety Anxiety state, unspecified Mixed hyperlipidemia Mixed hyperlipidemia Metabolic syndrome Dysmetabolic Syndrome X Sciatica of left side- Primary Mixed hyperlipidemia Mixed hyperlipidemia Tobacco dependence Tobacco use disorder Anxiety Anxiety state, unspecified Current moderate episode of major depressive disorder without prior episode (HCC) Metabolic syndrome Dysmetabolic Syndrome X Obesity (BMI 30-39.9) documented [facility]* Diagnosis Onset Date Resolution Status Admit Date CRISTAL (generalized anxiety disorder) acuteOctober 2024 1:29pmMajor depressionacuteOctober 2024 1:29pm Obesity due to excess caloriesacuteOctober 2024 1:29pmSciaticaacuteOctober 2024 1:29pmTobacco dependenceacuteOctober 2024 1:29pm [facility] Work Phone: History and physical note Author [facility]ngela Bennett [facility] Date/TimeFebruary 2024 12:38pm [place] [address] Gastroenterology H&P Signed Patient: Roselia Lo MR #: [id number] : 1980 Acct:[id number] Age/Sex: 44 / F Adm Date: 5 Loc: Room: Type: [facility] Attending Dr: Ángela Bennett MD Copies to: [...] signed by Ángela Bennett MD> 12/19/24 1238 [facility] Work Phone: History general Narrative - Reported* Type Description Date Medical History Anxiety Surgical HistoryC section x 3Surgical Historyrotator cuffSurgical History cholecystectomyHospitalization HistoryChild [employer] Other History general Narrative - Reported* Type Description Date Medical History Anxiety Medical HistoryNeuropathySurgical HistoryC section x 3Surgical Historyrotator cuffSurgical HistorycholecystectomySurgical Historyhip decompression left Hospitalization HistoryChild [employer] Other Hospital Discharge instructions Additional Instructions DISCHARGE [...] appointment to see your physician in two weeks.[facility] Work Phone: Reason for referral (narrative)No reason for referral information availableUniversity Hospitals Lake [facility] Work Phone: Summary Purpose Family History No Family History Records Found Relationship Condition Age at Onset Recorded Date/T nusrat father Diabetes mellitus Unknown Heart diseaseUnknown Advance Directives No Advanced Directives Records Found Advance Directive Response Recorded Date/ Time Advance Directives No December 31 3:00pm Advance Directive Response Recorded Date/ Time Advance Directives No December 31 2:00pm Chief Complaint and Reason for Visit Chief Complaint Right leg pain w/o i njury Ref Toby Briggs, lumbar radiculopathy Chief Complaint Ref rachel Valdez umbar radiculopathy follow up after PT /surgical consultReason for VisitDisplacement of lumbar intervertebral disc with radiculopathy Chief Complaint Ref rachel Valdez umbar radiculopathy follow up after PT /surgical consult Lumbar Disc HerniationReason for VisitDisplacement of lumbar intervertebral disc with radiculopathy Displacement of lumbar intervertebral disc with radiculopathy Chief Complaint follow up after PT / surgical consult Lumbar Disc Herniation Lumbar Disc HerniationReason for VisitDisplacement of lumbar intervertebral disc with radiculopathy Chief Complaint Admit [...] burn of left wrist January 112024 1:00pm Chief Complaint Admit Date Unknown May 07, 2025 1:37p m Chief Complaint Admit Date meds August 08, 2025 1: 29pm Reason for Visit Admit Date CRISTAL (generalized anxiety disorder) Octob er 2024 1:29pm Major depression August 08, 2025 1: 29pm Obesity due to excess calories August 082024 1:29pm Sciatica August 08, 2025 1: 29pm Tobacco dependence August 08, 2025 1: 29pm Reason for Visit Admit Date CRISTAL (generalized anxiety disorder) Octob er 2024 1:29pm Lumbar back pain with radicu lopathy affecting left lower extremity August 08, 2025 1:29pm Major depression August 08, 2025 1: 29pm Obesity due to excess calories August 082024 1:29pm Tobacco dependence August 08, 2025 1: 29pm Additional Source Comments INFORMATION SOURCE (unrecogn ized section and content) DATE CREATED AUTHOR 02/18/2021 [facility] DATE CREATED AUTHOR AUTHOR'S ORGANIZ ATION 06/01/2022 [facility] DATE CREATED AUTHOR AUTHOR'S ORGANIZ ATION 12/11/2024 [facility] DATE CREATED AUTHOR AUTHOR'S ORGANIZ ATION 03/17/2025 [facility] DATE CREATED AUTHOR AUTHOR'S ORGANIZ ATION 06/13/2025 [facility] DATE CREATED AUTHOR AUTHOR'S ORGANIZ ATION 08/16/2025 [facility] REASON FOR VISIT (unrecogniz ed section and content) ReasonCommentsMed RefillReasonCommentsBack PainReasonCommentsAnxietyReason CommentsWeight LossReasonCommentsWeight Check Care Teams (unrecognized sec tion and content) Team Status: Active Member Role Status Dates Ainsley Sellers Primary Care Provider Active Team Status: Inactive Member Role Status Dates LAMONTE LockettC Attending Provider Active S tart: January 01, 2024 End: January 01, 2024Ainsley SellersSte[facility] Care ProviderActiveStart: January 01, 2024 End: January 01, 2024 Team Status: Inactive Member Role Status Dates Ainsley Sellers Primary Care Provider Active Sta rt: February 24, 2024 End: February 24, 2024Marry Barfield NP-CActiveStart: February 24, 2024 End: February 23Katie Blackburn ProviderActiveStart: February 24, 2024 End: February 24, 2024 Team Status: Inactive Member Role Status Dates Ainsley Sellers Primary Care Provider Active Sta rt: April 05, 2024 End: April 05Katie Blackburn ProviderActiveStart: April 05, 2024 End: April 05, 2024 Team Status: Inactive Member Role Status Dates Ainsley Sellers Primary Care Provider Active Sta rt: April 16, 2024 End: April 16Katie Blackburn ProviderActiveStart: April 16, 2024 End: April 16, 2024 Team Status: Inactive Member Role Status Dates Ainsley Sellers Primary Care Provider Active Sta rt: May 28, 2024 End: May 28ale E Cutler , MDAttending ProviderActiveStart: May 28, 2024 End: May 28, 2024Team MemberRelationshipSpecialtyStart DateEnd Date Quentin Dawn MD [address] [place] [address] PCP - GeneralFamily Medicine11/17/23 Ainsley Sellers NP [address] [place] [address] [facility]11/17/23Team MemberRelationshipSpecialtyStart DateEnd Date Quentin Dawn MD [address] [place] [address] PCP - [facility]11/17/23 Ainsley Sellers NP [address] [place] [address] [facility]11/17/23Team MemberRelationshipSpecialtyStart DateEnd Date Quentin Dawn MD [address] [place] [address] PCP - [facility] Medicine11/17/23 Ainsley Sellers NP [address] [place] [address] [facility]11/17/23Team MemberRelationshipSpecialtyStart DateEnd Date Quentin Dawn MD [address] [place] [address] PCP - GeneralFamily Medicine11/17/23 Ainsley Sellers NP [address] [place] [address] Nurse Practitionermily Medicine11/17/23Team MemberRelationshipSpecialtyStart DateEnd Date Quentin Dawn MD [address] [place] [address] PCP - GeneralFamily Medicine11/17/23 Ainsley Sellers NP [address] [place] [address] [facility]11/17/23Team MemberRelationshipSpecialtyStart DateEnd Date Quentin Dawn MD [address] [place] [address] PCP - Generalmily Medicine11/17/23 Ainsley Sellers NP [address] [place] [address] [facility]11/17/23Team MemberRelationshipSpecialtyStart DateEnd Date Quentin Dawn MD [address] [place] [address] PCP - GeneralFamily Medicine11/17/23 Ainsley Sellers NP [address] [place] [address] Nurse PractitionerFamily Medicine11/17/23Team MemberRelationshipSpecialtyStart DateEnd Date Quentin Dawn MD [address] [place] [address] PCP - GeneralFamily Medicine11/17/23 Ainsley Sellers, ALESSIO [address] [place] [address] Nurse [facility]11/17/23Team MemberRelationshipSpecialtyStart DateEnd Date Quentin Dawn MD [address] [place] [address] PCP - Generalmily Medicine11/17/23 Ainsley Sellers NP [address] [place] [address] Nurse Pract[facility]My[facility]11/17/23Team MemberRelationshipSpecialtyStart DateEnd Date Quentin Dawn MD [address] [place] [address] PCP - Generalmily Medicine11/17/23 Ainsley Sellers NP [address] [place] [address] Nurse Pract[facility]11/17/23Team MemberRelationshipSpecialtyStart DateEnd Date Quentin Dawn MD [address] [place] [address] PCP - GeneralFamily Medicine11/17/23 Ainsley Sellers NP [address] [place] [address] [facility]11/17/23 Team Status: Inactive Member Role Status Dates Ainsley Vivar Georginaeddiemeño Primary Care Provider Active Sta rt: December 19, 2024 End: December 19, 2024Imad Jazmine Bennettending ProviderActiveStart: December 19, 2024 End: December 19, 2024 Team Status: Active Member Role Status Dates Ainsley [facility]ar [facility] Primary [facility] Provider Active Sta rt: December 19, 2024 ImJazmine Fentonending Provider, Other ProviderActiveStart: December 19, 2024 Team Status: Active Member Role Status Dates Ainsley J Georginatenzinliu Primary Care Provider Active Sta rt: December 21, 2024 Guerda Berthaending ProviderActiveStart: December 21, 2024 Team Status: Inactive Member Role Status Dates [facility] Primary Care Provider Active Sta rt: January 11, 2025 End: January 11, 2025Raya Rossi ProviderActiveStart: January 11, 2025 End: January 11, 2025Team MemberRelationshipSpecialtyStart DateEnd Date Quentin Dawn MD [address] [place] [address] PCP - [facility] Medicine11/17/23 Ainsley Sellers NP [address] [place] [address] Nurse Pract[facility]11/17/23Team MemberRelationshipSpecialtyStart DateEnd Date Quentin Dawn MD [address] [place] [address] PCP - [facility]11/17/23 Ainsley Sellers NP [address] [place] [address] Nurse Pract[facility]11/17/23Team MemberRelationshipSpecialtyStart DateEnd Date Quentin Dawn MD [address] [place] [address] PCP - [facility]11/17/23 Ainsley Sellers NP [address] [place] [address] Nurse Pract[facility]11/17/23Team MemberRelationshipSpecialtyStart DateEnd Date Quentin Dawn MD [address] [place] [address] PCP - [facility]11/17/23 Ainsley Sellers NP [address] [place] [address] Nurse Pract[facility]11/17/23Team MemberRelationshipSpecialtyStart DateEnd Date Quentin Dawn MD [address] [place] [address] PCP - [facility]11/17/23 Ainsley Sellers NP [address] [place] [address] Nurse Pract[facility]11/17/23Team MemberRelationshipSpecialtyStart DateEnd Date Quentin Dawn MD [address] [place] [address] PCP - GeneralFamily Medicine11/17/23 Ainsley Sellers NP [address] [place] [address] Nurse Pract[facility]My[facility] Center[facility]11/17/23Team MemberRelationshipSpecialtyStart DateEnd Date Quentin Dawn MD [address] [place] [address] PCP - GeneralMy[facility] Centerly [facility]11/17/23 Ainsley Sellers NP [address] [place] [address] [facility]11/17/23Team MemberRelationshipSpecialtyStart DateEnd Date Quentin Dawn MD [address] [place] [address] PCP - Generalmily Medicine11/17/23 Ainsley Sellers NP [address] [place] [address] [facility]11/17/23Team MemberRelationshipSpecialtyStart DateEnd Date Quentin Dawn MD [address] [place] [address] PCP - Generalmily Medicine11/17/23 Ainsley Sellers NP [address] [place] [address] Nurse Pract[facility]erJ[facility]11/17/23 Team Status: Inactive Member Role Status Dates Ainsley Sellers Attending Provider Active Start: May 07, 2025 End: May 07, 2025Team MemberRelationshipSpecialtyStart DateEnd Date Quentin Dawn MD [address] [place] [address] PCP - [facility]11/17/23 Ainsley Sellers NP [address] [place] [address] Nurse Pract[facility]erJ[facility]11/17/23Team MemberRelationshipSpecialtyStart DateEnd Date Quentin Dawn MD [address] [place] [address] PCP - [facility]11/17/23 Ainsley Sellers NP [address] [place] [address] [facility]11/17/23Team MemberRelationshipSpecialtyStart DateEnd Date Quentin Dawn MD [address] [place] [address] PCP - [facility]11/17/23 Ainsley Sellers NP [address] [place] [address] Nurse Pract[facility]erJ[facility]11/17/23Team MemberRelationshipSpecialtyStart DateEnd Date Quentin Dawn MD [address] [place] [address] PCP - [facility]11/17/23 Ainsley Sellers NP [address] [place] [address] Nurse PractitionerJ[facility] Hospital11/17/23 Team Status: Active Member Role Status Dates ALEXIA Quevedo Primary Care Provider Active Team Status: Inactive Member Role Status Dates ALEXIA Quevedo Primary Care Provider Active Start: August 08, 2025 End: August 08, 2025Bg Quevedotending ProviderActiveStart: August 08, 2025 End: August 08, 2025 Team Status: Inactive Member Role Status Dates ALEXIA Quevedo Attending Provider Active Start: August 08, 2025 End: August 08, 2025 Goals (unrecognized section and content) Goals [...] BE BASED ON THE PRIMARY CLINICAL RECORDS. [facility] [employer] provides no warranty or guarantee of the accuracy or completeness of information in this document.
== END 2025-08-21 12:36 | disposition home or self-care (01) ==
LOC: MRI 12:36
PROVIDERS: PCP Nurse Practitioner; Visit Provider Nurse Practitioner
DX: M54.16 Radiculopathy, lumbar region (principal); M51.369 Other intervertebral disc degeneration, lumbar region without mention of lumbar back pain or lower extremity pain
CPT/HCPCS: 72148

== ENCOUNTER 2025-10-16 16:34 | Outpatient (OUT) | payer OTHER, SELFPAY ==
--- OUTSIDE RECORDS SUMMARY | 2025-10-15 09:03 | XMS_ITS | Continuity of Care Document ---
Author Organization [facility] Address [address] [place] [address] Phone Care Team Providers Care Clerk Cashier Name Role Phone Ainsley Sellers NP-C Primary Care Provider Ainsley Sellers NP-C Attending Provider Care Teams Patient Care Team Team Status: Active Member Role/Relationship Status Dates Ainsley Sellers NP-Shahram Primary Care Provider Active Visit Care Team Team Status: Inactive Member Role/Relationship Status Dates Ainsley Sellers NP-C Primary Care Provider Active Start: August 08, 2025 End: August 08, 2025Shandra Quevedo ProviderActiveStart: August 08, 2025 End: August 08, 2025 Visit Care Team Team Status: Inactive Member Role/Relationship Status Dates Ainsley Sellers NP-Shahram Attending Provider Active Start: August 08, 2025 End: August 08, 2025 Patient Care Team Team Status: Inactive Member Role/Relationship Status Dates Ainsley Sellers NP-C Primary Care Provider Active Start: October 15, 2025 End: October 15, 2025LAMONTE QuevedoCAtgene ProviderActiveStart: October 15, 2025 End: October 15, 2025 Chief Complaint and Reason for Visit Chief Complaint Admit Date meds August 08, 2025 1: 29pm f41.1 August 08, 2025 2: 15pm 10W October 15, 2025 1:14pm Reason for Visit Admit Date CRISTAL (generalized anxiety disorder) Octob er 2024 1:29pm Lumbar back pain with radicu lopathy affecting left lower extremity August 08, 2025 1:29pm Major depression August 08, 2025 1: 29pm Obesity due to excess calories August 082024 1:29pm Tobacco dependence August 08, 2025 1: 29pm Encounter for screening mamm ogram for malignant neoplasm of breast October 15, 2025 1:14pm Foot pain, right October 15, 2025 1:14pm CRISTAL (generalized anxiety disorder) Decem 2024 1:14pm Lumbar back pain with radicu lopathy affecting left lower extremity October 15, 2025 1:14pm Major depression October 15, 2025 1:14pm Obesity due to excess calories October 15, 2025 1:14pm Tobacco dependence October 15, 2025 1:14pm Allergies, Adverse Reactions, Alerts Allergen Type Severity Reaction Last Updated Verified Status codeine Allergy Unknown Seizures July 03, 2025 6:04am Yes Active diphenhydramine Allergy Unknown Hives July 03, 2025 6:04 am Yes Active Social History Smoking Status Status Start Date End Date Date of Observa tion Smokes tobacco daily (finding) January 11, 2025 1:09pm Observation Status Observation Response Date of Response Legal Sex Female (finding) [facility] 1979 Family History Relationship Condition Age at Onset Recorded Date/T nusrat father Diabetes mellitus Unknown Heart diseaseUnknown Problems Active Problems Problem Diagnosis/Recorded Date Onset Date Stat us Left hand pain January 11, 2025 12:26pm Unknown A ctive Current moderate episode of major depressive disorder without prior episode August 05, 2025 7:06am Unknown Active Elevated glucose August 05, 2025 7:06am Unknown Active Tobacco dependence July 03, 2025 6:09am Unknown Active Major depression July 03, 2025 6:05am Unknown Active Insomnia July 03, 2025 6:07am Unknown A ctive CRISTAL (generalized anxiety disorder) July 03, 2025 6:05am Unknown Active Rib pain on right side August 05, 2025 7:07am Unknow n Active Encounter for screening mamm ogram for malignant neoplasm of breast August 05, 2025 7:05am Unknown Active 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 February 24, 2024 11:45am Unknown Active Sciatica July 03, 2025 6:08am Unknown A ctive Hot flashes July 03, 2025 6:07am Unknown A ctive Diverticulitis April 16, 2024 1:13pm Unknown Act lali Mixed hyperlipidemia July 03, 2025 6:07am Unknow n Active Microscopic hematuria July 03, 2025 6:07am Unkno wn Active OA (osteoarthritis) of hip July 03, 2025 6:08am Unknown Active Displacement of lumbar inter vertebral disc July 03, 2025 6:06am Unknown Active Metabolic syndrome July 03, 2025 6:07am Unknown Active Peripheral neuropathy July 03, 2025 6:08am Unkno wn Active Lumbar back pain with radicu lopathy affecting left lower extremity August 08, 2025 1:25pm Unknown Acti ve First degree burn of left wrist January 11, 2025 2:15p m Unknown Active Foot pain, right October 15, 2025 1:56pm Unknown Active Stage 3a chronic kidney disease (CKD) July 03, 025 6:09am Unknown Active Tubular adenoma of colon July 03, 2025 6:09am Un known Active Bunion, left August 05, 2025 7:05am Unknown Act lali Cyst of right ovary July 03, 2025 6:05am Unknown Active Contusion of left wrist January 11, 2025 2:15pm Unknow n Active Obesity due to excess calories July 03, 2025 6:0 8am Unknown Active Medications Medication Status Dose Units Route Directions Qty Days Refills S tart Date Stop Date End Date Reason(s) Instructions Adherence Sod Sulf-Pot Chloride-Mag Sulf (Sutab) 1.479-0.188- 0.225 gram tablet Discontinued 12 TAB PO Twice daily 24 1 0 November 06, 2024 12:00am December 19, 2024 11:12amtake first dose at 3pm the day before colonoscopy; take the second dose at 9pm evening before colonoscopy.Trazodone 50 mg tablet Oomuae90PCDBBsssc at csqrvku229Pujygau 6th, 2025 11:54amInsomnia Insomnia, unspecifiedComplies with drug therapyFluoxetine 40 mg lbfjaufDbfpya70 PYDGBqgxk230Ksjndmg 2024 11:54amCurrent moderate episode of major depressive disorder without prior episode Generalized anxiety disorder Major depressive disorder, single episode, moderate Generalized anxiety disorderComplies with drug therapyCephalexin 500 mg capsule Vksavwhobvca738MIBKWlhwx times ycisp220Wwwd 2023 11:00pmAugust 2023 12:11pmCyclobenzaprine 10 mg fkpnpoJxkeyrvsasgk98JRNQVxivn times daily as needed for back mmnflg328Xsgd 2023 11:00pmAugust 2023 12:11pmOxycodone 5 mg tabletDiscontinued5 - 84EMOSZ6E as needed for Olkz5963Pdtt ugust 2023 12:12pmHerniation of lumbar intervertebral disc with radiculopathy Intervertebral disc disorders with radiculopathy, lumbar regionPrednisone 10 mg tablets,dose xakzOmaofhgzrbfq7gpcx pkPOper package akvvooyhbo128Rwmk 2023 11:00pmAugust 2023 12:12pmtake 4 tabs for 3 days then take 3 tabs for 3 days then take 2 tabs for 3 days then take 1 tab for 3 daysBaclofen 10 mg ivmuxcPmwxkneozunv93MIPMGbyvn daily as needed for muscle spasmJune 2023 11:00pmJuly 2023 10:39am Acetaminophen (Tylenol Extra Strength) 500 mg bnbugwKxsusgemuocz289JBHDGbmqm 6 hours as needed for painJune 2023 11:00pmSeptember 2024 6:10amFolic Acid 1 mg kzcfppFyanggnmcvwm9BBOXJlfskInzy 2023 11:00pmSeptember 2024 6:11amOlanzapine 2.5 mg tabletDiscontinued2.5MGPODaily at bedtimeFebruary 2024 12:00amDecember 2024 1:44pmTrazodone 50 mg oniygsHeltippcqskc34EIMF Daily at bedtimeFebruary 2024 12:00amOctober 2024 11:54amAlprazolam 0.25 mg tabletActive0.25MGPODaily as needed for anxietyMarch 2023 12:00am Complies with drug therapyFluoxetine 20 mg gtrrpipEhgevedqzbeh86EBAVBvsfoUxofg 2023 12:00amOctober 2024 8:06amTrazodone 50 mg obaaoeDqjxfwkttaya10UC PODaily at bedtime as needed for sleepMarch 2023 12:00amAugust 2023 12:12pmGabapentin 300 mg noenfgyLeqykoktrgmy251NKMXOajfh dailyMarch 2023 12:00amApril 2023 8:28amPrednisone 20 mg vcidedUswuaaecjraz03ZIYNCdwzj jgdug3529Dmmxd 2023 12:00amJune 2023 1:04pmStart this prescription on January 01.Cyclobenzaprine 10 mg tqeuwzDtjmxwmjxxkf13CQGMBnwyw times daily as needed for muscle zginy620Ddflc 2023 12:00amJune 2023 1:05pm Gabapentin 300 mg rncmwknNprxtfnnjvuy384QOXXKooce times dailyApril 2023 8:28amFebruary 2024 11:04amFluoxetine 40 mg fwrjjnqNsvnrptapvio62THJXVeebl August 04, 2025 11:00pmOctober 2024 11:54amTizanidine 4 mg tablet Srmjaqpjwphe0PTDNExoqm at bedtime as neededOctober 2024 11:00pmDecember 2024 1:45pm Immunizations Immunization Event Date Not Given Reason Dose Number Loader Operator Supervisor Lot Number Reason(s) Given Vaccine Information Statement (VIS) Detail Administration Location COVID-19 mRNA-1273 (Moderna) March 15, 2021 COVID-19 mRNA-1273 (Moderna)April 12OVID-19 mRNA Bivalent Booster (Moderna)September 03, 2022 Relevant Diagnostic Tests and/or Laboratory Data Laboratory Results Test Collection Date/Time Result Date/Time Result Interpretation Reference Range Result Comment Performing Site Urine Drug Screen (T) August 08, 2025 1:56pm August 08, 2025 2:00pm Positive:See Comment Urine Drug Screen (T)August 08, 2025 1:15pmOctober 15th, 2025 11:07pmFinal. TOXASSURE COMP DRUG ANALYSIS,UR= Test Result Flag UnitsDrug Present Phentermine PRESENT Fluoxetine PRESENT Norfluoxetine PRESENT Norfluoxetine is an expected metabolite of fluoxetine. Trazodone PRESENT 1,3 chlorophenyl piperazine PRESENT 1,3-chlorophenyl piperazine is an expected metabolite of trazodone. Olanzapine PRESENT Test Result Flag Units Ref Range Creatinine 75 mg/dL >=20 Declared Medications: Medication list was not provided. For clinical consultation, please call . Performed at: [email or web address] [address] [id number] Director: Marline Haque [facility], Phone: [phone] Vital Signs Vital Reading Result Reference Range Collection Date/Time Height 63 [in_i] August 08, 2025 12:47dfGxysyl41.58 kgOctober 2024 12:53pmBody Temperature 97.3 [degF]97.6-99.0October 2024 12:53pmHeart Beef540 /enu24-791Lctvwsg 2024 12:53pmRespiratory rate18 /xps34-59Gzjvrzy 2024 12:53pmOxygen saturation by Pulse ubxwozsk91 %95-100October 2024 12:53pmBP Bdwznveo623 mm[Hg]100-140October 2024 12:53pmBP Vvjdaolwk77 mm[Hg]60-100October 2024 12:53pmBMI (Body Mass Index)34.9 kg/p4Vkoiqtq 2024 12:28uwVznlsh91 [in_i]October 15, 2025 1:32yiYnnizw22.49 kgDecember 2024 1:29pmBody Nozwpzggnwx03.5 [degF]97.6-99.0December 2024 1:29pmHeart Rate83 /jcv59-016 October 15, 2025 1:29pmRespiratory rate18 /neo32-58Wyokodvk 16th, 2025 1:29pm Oxygen saturation by Pulse utegxfuj63 %95-100December 2024 1:29pmBP Actcrvow409 mm[Hg]100-140December 2024 1:29pmBP Nlvtmgfao45 mm[Hg]60-100 October 15, 2025 1:29pmBMI (Body Mass Index)35.3 kg/w3Lnnrbjcc 2024 1:29pm Advance Directives Advance Directive Response Recorded Date/ Time Advance Directives No December 31 2:00pm Insurance Providers Guarantor Simona Moore Ysaguiedd e Address [address] [place] [id number] Info.Home Phone: Coverage Status Update:2024 Payer Group Member ID Coverage Type Subscriber Relationship to Subscriber Effective Date Expiration Date [employer] Id: [id number] Ysagwenceslaoaroul Id: [id number] [facility] [address] Home Phone: Email: [email or web address] Encounter Location(s) Arrival/Admit Date Discharge/Departure Date Discharge/Departure Disposition Provider(s) Departed Physician/ Provider Office Visit -[facility] August 08, 2025 1:29pm August 08, 2025 2:20pm Discharged to home care or self care (routine discharge) ALEXIA Quevedo Departed [facility] August 08, 2025 2:15pm August 08, 2025 2:16pm Discharged to home care or self care (routine discharge) ALEXIA Quevedo Departed Physician/ Provider Office Visit -[facility] October 15, 2025 1:14pm October 15, 2025 2:01pm Discharged to home care or self care (routine discharge) ALEXIA Quevedo Recent Diagnosis Onset Date Admit Date CRITSAL (generalized anxiety disorder) Unknown August 08, 2025 1:29pm Lumbar back pain with radicu lopathy affecting left lower extremity Unknown August 08, 2025 1:29pm Major depression Unknown August 08 1:29pm Obesity due to excess calories Unknown O ctober 2024 1:29pm Tobacco dependence Unknown August 08, 2025 1:29pm Encounter for screening mamm ogram for malignant neoplasm of breast Unknown October 15, 2025 1:14pm Foot pain, right Unknown October 15, 2025 1:14pm CRISTAL (generalized anxiety disorder) Unknown October 15, 2025 1:14pm Lumbar back pain with radicu lopathy affecting left lower extremity Unknown October 15, 2025 1:14pm Major depression Unknown October 15, 2025 1:14pm Obesity due to excess calories Unknown D ecember 2024 1:14pm Tobacco dependence Unknown September 1:14pm Assessments Diagnosis Onset Date Resolution Status Admit Date CRISTAL (generalized anxiety disorder) acuteOctober 2024 1:29pmLumbar back pain with radiculopathy affecting left lower extremityacuteOctober 2024 1:29pmMajor depressionacuteOctober 2024 1:29pmObesity due to excess caloriesacuteOctober 2024 1:29pmTobacco dependenceacuteOctober 2024 1:29pmEncounter for screening mammogram for malignant neoplasm of breastacuteDecember 2024 1:14pmFoot pain, rightacute October 15, 2025 1:14pmGAD (generalized anxiety disorder)acuteDecember 2024 1:14pmLumbar back pain with radiculopathy affecting left lower extremity acuteDecember 2024 1:14pmMajor depressionacuteDecember 2024 1:14pm Obesity due to excess caloriesacuteDecember 2024 1:14pmTobacco dependence acuteDecember 2024 1:14pm Plan of Treatment Author [facility]ellers [facility]ored[facility] 2024 1:27pmcurrent meds: xanax prn, fluoxetine, olanzapine, trazodone at [...] of the risks of continued smoking: stroke, MS, all forms of cancer, lung disease, and [...] sxs similar will order MRI lumbar spine Author [facility]ellers [facility] 20[facility] 1:43pmhas failed conservative treatment: nsaid, mr, steroids, HEP hx of HNP, sxs similar MRI 08/21/25: facet arthropathy, foraminal stenosis, as well as bulging disc L5-S1 current meds: xanax prn, fluoxetine, olanzapine, trazodone at HS last appt instructions provided for weaning off olanzapine CRISTAL 7: 10/15/25 =1, 08/08/25 =4 current meds: xanax prn, fluoxetine, trazodone at HS last appt we provided instructions for weaning down and of zyprexa PHQ 9: 10/15/25=0, 08/08/25 =0 Discussed with patient their BMI (actual vs recommended). We have discussed lifestyle modifications: attempts to perform phsyical activity as chronic conditions allow, monitor dietary intake: increasing protein/fruits/veggies and lowering carb intake (unless contraindicated). Limit sodas, juices, sugary drinks, as well as alcohol consumption. The patient has been advised of the risks of continued smoking: stroke, MS, all forms of cancer, lung disease, and . Options for quitting: cold turkey, hypnosis, acupuncture, nicotine replacement meds (gum, lozenges, and patches), as well as oral meds: buproprion or varenicline . At this time pt is encouraged to evaluate their goals for wanting to quit smoking, and reach out to provider when ready to start this process due 11/25 Future Tests Future scheduled test information is unavailable Pending Tests Test Name Ordered Date Scheduled Date MR lumbar spine wo con August 08, 2025 1:27pm MM diagnostic mammo BI w/CADDecember 2024 6:26amXR foot RT min 3V*October 15, 2025 1:55pm Future Visits Future appointment information is unavailable Future Procedures Future procedure information is unavailable Future Medications Future medication information is unavailable Patient Instructions Instruction Admit Date Low back pain in adults August 08 1:29pm Low back pain in adults October 15, 2 025 1:14pm
--- NOTE | 2025-10-16 | XR_ITS ---
The [address] [address] Patient Name: ROSELIA LO MRN: [id number] date: 1980 Sex: F Assigned Patient Location: [facility] Current Patient Location: [facility] Accession/Order Number: [id number] Exam Date: 10/16/2025 16:40 Report Date: 10/17/2025 09:58 At the request of: LISA KNIGHT NP Procedure: XR foot RT min 3V RIGHT FOOT - 3 views CLINICAL DATA: Right foot pain for the past few weeks medially. No reported injury. COMPARISON: None AP, lateral and oblique views were obtained. There is no evidence of fracture or dislocation. There are tiny calcaneal spurs. There are no significant soft tissue abnormalities. XR/XR foot RT min 3V IMPRESSION: NO ACUTE BONY FINDINGS. Impression dictated by: Alisha Sánchez M.D. 10/17/2025 9:58 AM Dictation Location: [facility]Interleukin Genetics Electronically authenticated by: [id number] Y Date: 10/17/2025 09:58
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
--- OUTSIDE RECORDS SUMMARY | 2025-10-16 16:38 | XMS_ITS | Clinical Summary ---
Author Organization [employer] s tem Address [id number] [place] [address] Care Team Providers Care Senior Executive Compensation Analyst Name Role Phone Ainsley Sellers APRN-LUNCH COUNTER MANAGER Primary Care Provider Allergies Active AllergyReactionsCriticalityNoted DateCommentsDiphenhydramine Hcl XqkoymybfabixjVja19/07/4905PkcheiuIeyeqBnihpd26/07/2017 Medications MedicationSigDispense QuantityRefillsLast FilledStart DateEnd DateStatus albuterol (PROVENTIL HFA;VENTOLIN HFA) 90 mcg/actuation inhaler Inhale 2 puffs every 4 (four) hours as needed for wheezing.4Active SUTAB 1.479-0.188- 0.225 gram tablet TAKE 12 TABLETS BY MOUTH TWICE DAILY FOR 1 DAY. TAKE FIRST DOSE AT 3 PM THE DAY BEFORE COLONOSCOPY AND SECOND DOSE AT 9 PM EVENING AMZIAT785Active traZODone (DESYREL) 50 mg tablet Take 1 tablet (50 mg total) by mouth nightly.4Active ALPRAZolam (XANAX) 0.25 mg tablet Take 1 tablet (0.25 mg total) by mouth in the morning.5Active FLUoxetine (PROzac) 40 mg capsule Take 1 capsule (40 mg total) by mouth in the morning.4Active Active Problems ProblemNoted DateDiagnosed DateArthropathy of shoulder eoaxaq3911/23/2024 Overview (11/23/2024): 716.91 09-156879 DOI 08/31/09 Bicipital zkjmfmfosycof45/24/2025 Overview (11/23/2024): 726.12 09-816247 DOI 08/31/09 Esophageal dyjwme2911/23/2024Partial thickness rotator cuff tear11/23/2024 Overview (11/23/2024): 840.4 09-138299 DOI 08/31/09 Current moderate episode of major depressive disorder without prior episode 11/15/2024 Overview (11/23/2024): PHQ 9 score= 19 on 11/15/24 Cyst of right ovary5Acute urinary ajdwlxugf30/25/2024Rib pain on right side06/26/20246151Zekkzigxqyssgy03/30/2024union, left10/06/2023Tenosynovitis, de Qcztqtyi84/07/7498Wkkctuj58/07/2023 Overview (11/23/2024): Med agreement: 11/15/24 CRISTAL 7 score=19 PHQ 9 score=19 Displacement of lumbar intervertebral disc with xxlkkfapqycsr75/07/2023Hot zpwaxke2310/06/20239409Hrvmmoiv34/07/2023Leg pain, fbiuhrkcj28/07/2023Obesity (BMI 30-39.9)10/06/2023Osteoarthritis of hip10/06/2023eripheral polyneuropathy 10/06/20234425Mbxzjhsp92/07/2023Stage 3a chronic kidney disease (CKD)10/06/2023 Rtdxpn3903/24/2022 Overview (03/24/2022): Encouraged cessation Hypertrophy of lrvvqdt6103/19/2021hronic dydpiodvxaz19/20/2021 Family History Medical HistoryRelationNameCommentsDiabetesFatherHeart diseaseFatherUterine cancerMotherBreast cancerNeg HxColon cancerNeg HxOvarian cancerNeg HxRelation NameStatusCommentsFatherAliveMotherAlive Social History Tobacco UseTypesPacks/DayYears UsedDateSmoking Tobacco: Every DayCigarettes0.525 Started: 2000Smokeless Tobacco: Never Tobacco Cessation:Ready to Q uit: Not Asked; Counseling Given: Not Answered Alcohol UseStandard Drinks/WeekCommentsNo0 (1 standard drink = 0.6 oz pure alcohol)PHQ-2AnswerDate RecordedTotal Xpdgn5358/24/2025ChildcareAnswerDate NayumfkvUsjjegzrfOghbsbx61/06/2019EmploymentAnswerDate RecordedEmploymentUnknown 04/05/2019Hunger ScreeningAnswerDate RecordedWithin the past 12 months we worried whether our food would run out before we got money to buy more.Never True03/15/2025Within the past 12 months the food we bought just didn't last and we didn't have money to get more.Never True03/15/2025Purpose - LifeAnswerDate RecordedPurpose and direction in cbnrQeazyja31/10/2021CommentsNoSex and Gender InformationValueDate RecordedSex Assigned at BirthNot on fileLegal Sex Betine0406/05/2015 11:55 AM EDTGender IdentityNot on fileSexual OrientationNot on file Last Filed Vital Signs Vital SignReadingTime TakenCommentsBlood Kenacqam124/8203/15/2025 3:42 PM EDT Iaqsk675103/15/2025 3:42 PM XIAMxtcitrjnzp24.7 ??C (98 ??F)03/15/2025 3:42 PM EDT Respiratory Zmov473503/15/2025 4:12 PM EDTOxygen Xgougiaczh80%03/15/2025 3:42 PM EDTInhaled Oxygen Concentration--Fkabkb38.9 kg (185 lb)03/15/2025 3:42 PM EDT Ddtaml250.6 cm (5' 4 )03/15/2025 3:42 PM EDTBody Mass Index31.76003/15/2025 3:42 PM EDT Plan of Treatment Health MaintenanceDue DateLast DoneCommentsTobacco Jtecudmwzy1980Adult BMI Follow Up Plan1998DTaP,Tdap and Td Vaccines (1 - Tdap)1999Mammogram /, 03/30/2022OVID-19 Vaccine (4 - season)2025 09/03/2022, 04/12/2021, 03/15/2021Influenza Gmlsylo54/01/2022, 08/29/2016, 09/04/2010, Additional history existsDepression Fgathhhfc77/24/2026 11/23/2024dult BMI Dwmnkjwal25/16/57535303/15/2025Tobacco Qswytuuij65/16/2026 03/15/2025Pap Smear8011/23/2024, 11/23/2024, 03/24/2022, Additional history exists Medical Devices Not on file Procedures Procedure NamePriorityDate/TimeAssociated DiagnosisCommentsHIGH RISK HPV W/WALT Pueebdj6011/23/2024 4:15 AM EST Women's annual routine gynecological examination Cervical cancer screening MAMM SCREENING BILATERAL W OXGJezlout27/16/2023 1:09 PM EDT Encounter for screening mammogram for malignant neoplasm of breast from Last 3 Months or Most Recently Relevant to Health Maintenance Results * (ABNORMAL) High risk HPV w/walt (11/23/2024 4:15 AM EST)ComponentValueRef RangeTest MethodAnalysis TimePerformed AtPathologist SignatureHpv specimen jydvEfwbJrml81/27/2025 4:16 AM [facility] 16Negative Negative^Iuafhwzw47/27/2025 2:09 PM [facility] 18 NegativeNegative^Jfagofwn94/27/2025 2:09 PM [facility] Other high risk hpvPositive(A)Negative^Rbfsbcui06/27/2025 2:09 PM [facility] LABComment: For the DNA of any or combination of the following HPV types: 31,33,35,45, 52,56,58,59,66 and 68. Specimen (Source)Anatomical Location / LateralityCollection Method / Volume Collection TimeReceived TlxjUSIVK67/24/2025 4:15 AM EST11/26/2024 4:16 AM EST Narrative Authorizing ProviderResult TypeResult StatusStsean Casey ASSISTANT PROFESSOR OF THEATER-CNPLAB BLOOD ORDERABLESFinal ResultPerforming OrganizationAddressCity/State/ZIP Code Phone Number [facility] [address] [place] [address] [facility] [address], [address] [place] [address] * Mammography screening bilateral with CAD (04/15/2023 1:09 PM EDT)Anatomical RegionLateralityModalityBreastBilateralMammographySpecimen (Source)Anatomical Location / LateralityCollection Method / VolumeCollection TimeReceived Time 04/18/2023 9:13 AM EDT Narrative 04/18/2023 9:16 AM EDT History: Screening mammogram Technique: Digital mammographic images of both breasts were obtained in CC and MLO projections. ??Computer-aided detection was utilized. ??Bilateral tomosynthesis was obtained in both projections. Comparison: ??03/30/2022 Breast Composition: ??There are scattered areas of fibroglandular density. Findings: There is no evidence of dominant mass lesion, clustered suspicious microcalcifications, architectural distortion, or other findings in either breast to suggest the presence of malignancy. Impression: Both breasts negative for evidence of malignancy by digital mammography. ??A screening mammogram in one year is recommended. ACR Category: ??BIRADS 1 - Negative. Finalized by Richard Horowitz [...] 9:16 AM 1 b MAMM 1 YR Authorizing ProviderResult TypeResult StatusLisa Yu Abebe ASSISTANT PROFESSOR OF THEATER-CNPIMG MAMMOGRAPHY ORDERABLESFinal Result from Last 3 Months or Most Recently Relevant to Health Maintenance Insurance * Guarantor: Simona JordanAccopey[place] TypeRelation to PatientDate of BirthPhoneBilbo[facility] AddressPersonal/BudkvcSxyr[address] [place] [address] * Guarantor: Simona JordanAcc[place] TypeRelation to PatientDate of BirthPhoneCar[facility] AddressWorkers XoraCvey[address] [place] [id number] Care Teams Team MemberRelationshipSpecialtyStart DateEnd Date Ainsley Sellers, HANNAH-FADI PCP - GeneralNurse Practitioner03/30/22
== END 2025-10-16 16:35 | disposition home or self-care (01) ==
LOC: RAD 16:34
PROVIDERS: PCP Nurse Practitioner; Visit Provider Nurse Practitioner
DX: M79.671 Pain in right foot (principal)
CPT/HCPCS: 73630